=== PATIENT | male | born 1945 | race Caucasian/White ===

== ENCOUNTER 2023-06-10 13:08 | Day surgery (SDC) | payer MEDICARE, OTHER, SELFPAY ==
--- NOTE | 2023-06-10 13:25 | MR_ITS ---
The [address] [address] Patient Name: DEBORAH BARROW MRN: [id number] date: 1945 Sex: M Assigned Patient Location: MRI Current Patient Location: MRI Accession/Order Number: [id number] Exam Date: 06/10/2023 15:00 Report Date: 06/12/2023 14:57 At the request of: ONEL ISAACS Procedure: MR arthrogram shoulder EXAM: MR arthrogram shoulder COMPARISON: Fluoroscopic images from 06/10/2023. HISTORY: Right shoulder and arm pain. History of prior shoulder surgery for rotator cuff tear. TECHNIQUE: Multiplanar and multisequence imaging of the right shoulder was performed after intra-articular administration of dilute gadolinium into the glenohumeral joint. FINDINGS: The glenohumeral joint is well opacified with contrast. There is extravasation of the injected contrast into the subacromial space traversing a full-thickness rotator cuff tear. There is capsular hypertrophy and mild spurring involving the acromioclavicular joint. There has been prior acromioplasty. There is artifact related to hardware in the greater tuberosity with surgical tracks in the greater tuberosity. There is a relatively large full-thickness tear involving a majority of the supraspinatus extending to the junction with the infraspinatus. The tear measures approximately 1.5 cm in AP dimension and 2.5 cm transversely with tendon retraction measuring 2.5 cm. There is thinning and likely partial thickness tearing throughout the infraspinatus with thinning possibly in part related to postsurgical change. There is mild tendinopathy and low-grade partial-thickness articular sided tearing of the distal subscapularis. There is no atrophy of the rotator cuff muscles. There is mild medial subluxation of the biceps tendon from the bicipital groove. There is severe tendinopathy and moderate grade partial thickness tearing of the biceps tendon tracking proximally from the bicipital groove. There is linear increased signal and contrast signal in the superior labrum best seen on the coronal T1 images consistent with a tear of the superior labrum. There is low-grade articular cartilage loss and mild joint space narrowing with mild spurring involving the glenohumeral joint. MR/MR arthrogram shoulder IMPRESSION: 1. There is a large full-thickness tear of the supraspinatus extending to the junction with the infraspinatus. Tendon retraction measures approximately 2.5 cm with contrast extending from the joint space into the subacromial and subdeltoid space related to the full-thickness tear. 2. There is mild tendinopathy and low-grade partial-thickness articular sided tearing of the subscapularis. There is no atrophy of the rotator cuff muscles. 3. There is mild medial subluxation of the biceps tendon from the bicipital groove with severe tendinopathy and moderate grade partial thickness tearing of the biceps tendon tracking proximally from the bicipital groove. 4. Prior rotator cuff repair with surgical tracks and artifact related to hardware in the greater tuberosity. There has been prior acromioplasty. 5. 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 There is a tear of the superior labrum. Electronically authenticated by: ROSHAN GRIMM Date: 06/12/2023 14:57
--- NOTE | 2023-06-10 13:26 | FL_ITS ---
[address] [address] Patient Name: DEBORAH BARROW MRN: [id number] date: 1945 Sex: M Assigned Patient Location: MRI Current Patient Location: MRI Accession/Order Number: [id number] Exam Date: 06/10/2023 14:15 Report Date: 06/10/2023 20:01 At the request of: ONEL ISAACS Procedure: FL arthrogram shoulder RT EXAMINATION: FL arthrogram shoulder RT HISTORY: Right Shoulder Instability COMPARISON: No relevant comparison available. TECHNIQUE: An arthrogram was performed under fluoroscopic guidance using non-ionic contrast material in the usual sterile manner after obtaining informed consent. Standard level fluoroscopic mode of operation utilized. FINDINGS: JOINT: Right shoulder NEEDLE: 25 gauge, 3.5 spinal needle. MEDICATION: 6cc buffered 1% lidocaine for subcutaneous anesthesia 2cc Omnipaque-240 iodinated contrast to visualize the joint space 40 mg Depo-Medrol and one mL, 3 mL's of 0.5% bupivacaine, 3 cc of sterile saline injected into the joint space. TECHNIQUE: Anterior approach. A single stick was successful in gaining access to the joint space. CLINICAL: 4 out of 10 pain before the procedure. 2 out of 10 pain following the procedure COMPLICATIONS: None. FL/FL arthrogram shoulder RT IMPRESSION: Technically successful right shoulder arthrogram with mild improvement in the patient's pain following injection Electronically authenticated by: LEONELA PARIKH Date: 06/10/2023 20:01
[2023-06-10] MEDS: LIDOCAINE HCL 15 ML, SODIUM BICARBONATE 2 MEQ INJ (14:35)
== END 2023-06-10 14:00 | disposition home or self-care (01) ==
LOC: MRI 13:09
PROVIDERS: Radiology Diagnostic Radiology; PCP Family Medicine; Visit Provider Family Medicine
DX: M25.311 Other instability, right shoulder (principal)
CPT/HCPCS: 23350; 73040; 73222; 77002; A9575; Q9967

== ENCOUNTER 2024-05-18 17:35 | Outpatient (OUT) | payer MEDICARE, OTHER, SELFPAY ==
[2024-05-18 18:31] LABS: Internal Control Within Normal Limits; Respiratory Syncytial Virus Not Detected (NOT DETECTE)
[2024-05-18 18:32] LABS: Influenza Virus A Antigen Negative; Influenza Virus B Antigen Negative; Internal Control Within Normal Limits; SARS-CoV-2 Ag POSITIVE (NEGATIVE)
== END 2024-05-18 17:36 | disposition home or self-care (01) ==
LOC: LAB 17:37
PROVIDERS: PCP Family Medicine; Visit Provider Family Medicine
DX: J20.9 Acute bronchitis, unspecified (principal)
CPT/HCPCS: 87420; 87635; 87804; 87811

== ENCOUNTER 2024-06-04 14:41 | Outpatient (OUT) | payer MEDICARE, OTHER, SELFPAY ==
--- NOTE | 2024-06-04 14:45 | US_ITS ---
[address] [address] Patient Name: DEBORAH BARROW MRN: [id number] date: 1945 Sex: M Assigned Patient Location: US Current Patient Location: US Accession/Order Number: [id number] Exam Date: 06/04/2024 15:00 Report Date: 06/04/2024 16:51 At the request of: ONEL ISAACS Procedure: US venous doppler LE BI EXAM: US venous doppler LE BI HISTORY: Edema R60.9 COMPARISON: None. TECHNIQUE: Grayscale, color and Doppler FINDINGS: Region: Bilateral legs Thrombus: None Flow: Normal Augmentation: Normal Compressibility: Normal Other: Subcutaneous edema noted along the left lower leg US/US venous doppler LE BI IMPRESSION: No deep or superficial vein thrombus identified in the legs Electronically authenticated by: LEONELA PARIKH Date: 06/04/2024 16:51
== END 2024-06-04 14:42 | disposition home or self-care (01) ==
LOC: US 14:41
PROVIDERS: PCP Family Medicine; Visit Provider Family Medicine
DX: R60.0 Localized edema (principal)
CPT/HCPCS: 93970

== ENCOUNTER 2024-08-04 08:56 | Outpatient (OUT) | payer MEDICARE, OTHER, SELFPAY ==
--- NOTE | 2024-08-04 09:05 | CT_ITS ---
[address] [address] Patient Name: DEBORAH BARROW MRN: [id number] date: 1945 Sex: M Assigned Patient Location: CT Current Patient Location: Accession/Order Number: [id number] Exam Date: 08/04/2024 09:55 Report Date: 08/05/2024 06:51 At the request of: ONEL ISAACS Procedure: CT abdomen pelvis w con EXAMINATION: CT abdomen pelvis w con HISTORY: Abdominal Wall Hernia K43.9 COMPARISON: No relevant comparison available. TECHNIQUE: Axial, Coronal, and Sagittal images were obtained without and/or with IV contrast as indicated by examination type. Dose reduction techniques were achieved by using automated exposure control and/or adjustment of mA and/or kV according to patient size and/or use of iterative reconstruction technique. FINDINGS: LUNG BASES: No visible pulmonary or pleural disease. LIVER: No enlargement, atrophy, suspicious density, or significant focal lesion. BILIARY: Cholecystectomy. PANCREAS: No lesion, fluid collection, or abnormal duct dilatation. SPLEEN: No enlargement or focal lesion. ADRENALS: No mass or enlargement. KIDNEYS: Bilateral hypodensities favoring cysts. No appreciable mass, obstruction, or calcification. BOWEL/MESENTERY: Numerous diverticula scattered along the length of colon without acute inflammatory changes. No visible mass, obstruction, or bowel wall thickening. AORTA/VASCULAR: No aneurysm or dissection. RETROPERITONEUM: No mass or adenopathy. LYMPH NODES: No adenopathy. URINARY BLADDER: No visible focal wall thickening, lesion, or calculus. PELVIC ORGANS: No visible mass. Pelvic organs appropriate for patient age. ABDOMINAL WALL: Supra umbilical ventral hernia 3.4 cm in diameter with a 1.3 cm wide neck containing only fat. No strangulation. BONES: No bony lesion or fracture. OTHER: Negative. CT/CT abdomen pelvis w con IMPRESSION: 1. Small fat filled nonstrangulated supraumbilical ventral hernia. 2. Colonic diverticulosis. Electronically authenticated by: JACOBO AUGUSTIN Date: 08/05/2024 06:51
[2024-08-04 09:14] LABS: Estimated GFR (African America >60 (>=60); Estimated GFR (Non-African Ame 54 (>=60)
--- OUTSIDE RECORDS SUMMARY | 2024-08-04 09:26 | XMS_ITS | CCD ---
Author Organization [facility] Care Team Providers Care Trailer Rental Clerk Name Role Phone Onel Isaacs Primary Care Physician Carmella Liao Unavailable Unavailable Laura Gates Unavailable Unavailable Katie Villatoro Unavailable Unavailable Onel Isaacs MD Primary Care Provider AhmedRayraytham Unavailable Juan F Portillo MD Unavailable Onel Isaacs MD Primary Care Provider Ahmed, Haitham Unavailable Juan F Portillo MD Unavailable Onel Isaacs MD Primary Care Provider Ahmed, Rayraytham Unavailable Onel Isaacs MD Primary Care Provider Ahmed, Haitham Unavailable Juan F Portillo MD Unavailable Onel Isaacs MD Unavailable Onel Isaacs MD Primary Care Provider Ahmed, Haitham Unavailable Juan F Portillo MD Unavailable Onel Isaacs MD Unavailable Onel Isaacs Attending Unavailable Hoy, Onel Admitting Unavailable Cary Fuchs Attending Unavailable Cherise Saldivar Attending Unavailable Hoy, Onel Attending Unavailable Hoy, Onel Admitting Unavailable Hoy, Onel Referring Unavailable Hoy, Onel Attending Unavailable Hoy, Onel Admitting Unavailable Hoy, Onel Referring Unavailable Onel Isaacs MD Unavailable Juan F Portillo MD Unavailable Juan F Portillo MD Unavailable Onel Isaacs MD Unavailable Onel Isaacs MD Primary Care Provider REJI WEEMS Attending Unavailable ONEL ISAACS Primary Care Unavailable ABEBA KEEN Attending Unavailable JUAN F PORTILLO Referring Unavailable ONEL ISAACS Primary Care Unavailable ABEBA KEEN Referring Unavailable ONEL ISAACS Primary Care Unavailable ABEBA KEEN Attending Unavailable JUAN F PORTILLO Referring Unavailable ONEL ISAACS Primary Care Unavailable REJI WEEMS Referring Unavailable ONEL ISAACS Primary Care Unavailable Allergies Allergy Classification Reported Allergen(s) Allergy Type Date of Onset Reaction(s) Facility (5 sources) Acetaminophen / HYDROcodone; Translations: [acetaminophen-hy drocodone] Drug Allergy Unknown (qualifier value) [facility] (5 sources) Codeine; Translations: [codeine] Drug Allergy itching [facility] (20 sources) Lisinopril; Translations: [lisinopril] Drug Allergy 7 Cough [facility] (4 sources) Amoxicillin; Translations: [amoxicillin] Drug Allergy Diarrhea (finding) [facility] (1 source) Acetaminophen / oxyCODONE; Translations: [Percocet 5/325] Drug Allergy [facility] Repository Medications Current Medications Medication Drug Class(es) Dates Sig (Normalized) Sig (Original) acetaminophen 325 mg oral tablet (17 sources) Start: 09-09-2018 acetaminophen (TYLENOL) 325 mg tablet Take 650 mg by mouth as needed for pain. 0 09/09/2018 Active Start: 09-09-2018 take 650 mg by mouth four times daily as needed for pain Tylenol 650 mg, Oral, QID, PRN as needed for pain, Refills(s) 0 Start Date: 09/09/18 Status: Ordered Comment on above: Take 650 mg by mouth . Take 650 mg by mouth as needed for pain. Airborne Everyday (4 sources) Start: 8 take 1 tablet by mouth once daily Airborne Everyday 1 tab, Oral, Daily, Refill(s) 0, Prophylaxis Start Date: 09/09/18 Status: Ordered amoxicillin 500 mg oral tablet (4 sources) Penicillin-class Antibacterial Start: 2 take 500 mg by mouth once amoxicillin 500 mg, Oral, Once, Refills(s) 0, Infection or prophylaxis for antibiotics Start Date: 02/19/22 Status: Ordered ascorbic acid / biotin / ferrous bisglycinate / folic acid / formic acid / iron-dextran complex / niacin / pantothenate / pyridoxine / riboflavin / thiamine / vitamin B12 (20 sources) Nicotinic Acid, Vitamin B12, Vitamin C Start: 3 take 1 tablet by mouth every week iron bisgly,ps-FA-B-C#12 -succ 65 mg-65 mg -1,000 mcg (24) tab Take 65 mg by mouth once weekly 0 08/13/2023 Active Start: 08-11-2020 End: 08-13-2023 take 1 tablet by mouth once daily iron bisgly,ps-FA-B-C#12-succ 65 mg-65 m g -1,000 mcg (24) tab Take 65 mg by mouth once daily. 0 08/11/2020 08/13/2023 Discontinued Start: 08-11-2020 take 1 tablet by myesha th once daily iron bisgly,ps-FA-B-C#12-succ 65 mg-65 m g -1,000 mcg (24) tab Take 65 mg by mouth once daily. 0 08/11/2020 Active Comment on above: Take 65 mg by mouth once daily. Take 65 mg by mouth once weekly Aspir 81 (4 sources) Start: 8 take 81 mg by mouth once daily Aspir 81 81 mg, Oral, Daily, Refills(s) 0, Prophylaxis Start Date: 08/28/18 Status: Ordered azithromycin 500 mg oral tablet (20 sources) Macrolide Antimicrobial Start: 2 azithromycin (ZITHROMAX) 500 mg tablet Take 1 tablet by mouth once daily. Take one tablet 60 minutes prior to procedure. 1 tablet 0 03/23/2022 Active Start: 02-21-2022 End: 03-20-2022 azithromycin (ZITHROMAX) 500 mg tablet Take 1 tablet by mouth once daily. Take one tablet 60 minutes prior to procedure. 1 tablet 0 02/21/2022 03/20/2022 Discontinued Comment on above: Take 1 tablet by myesha once daily. Take one tablet 60 minutes prior to procedure. calcium citrate/vitamin D3 (CALCIUM CITRATE + ORAL) (20 sources) calcium citrate/ vitamin D3 (CALCIUM CITRATE + ORAL) Take by mouth twice daily. Pt takes 2 capsule by mouth twice per day. 0 Active calcium citrate/ vitamin D3 (CALCIUM CITRATE + ORAL) Take by mouth twice daily. Pt takes 2 chewables by mouth twice per day. 0 Active calcium citrate/ vitamin D3 (CALCIUM CITRATE + ORAL) Take by mouth twice daily. Chewable taken twice per day by mouth. 0 Active Comment on above: Take by mouth twice daily. Chewable taken twice per day by mouth. Take by mouth twice daily. Pt takes 2 chewables by mouth twice per day. Take by mouth twice daily. Pt takes 2 capsule by mouth twice per day. cholecalciferol 0.05 mg oral capsule (20 sources) Vitamin D take 1 capsule by mouth twice daily Cholecalciferol, Vitamin D3, 50 mcg (2,000 unit) cap Take 1,000 Units by mouth twice daily. 0 Active take 1 capsule by mouth once farhan ly Cholecalciferol, Vitamin D3, (D3-2000) 2,000 unit cap Take 1 capsule by mouth once daily. 0 Active Comment on above: Take 1 capsule by [facility] once daily. Take 1,000 Units by mouth twice daily. Co-Q10 (4 sources) Start: 2017 take 100 mg by mouth once daily Co-Q10 100 mg, Oral, Daily, Refills(s) 0, Prophylaxis Start Date: 09/09/18 Status: Ordered cyanocobalamin, vitamin B-12, (VITAMIN B-12 SUBLINGUAL) (20 sources) take 1 dose under the tongue once daily cyanocobalamin, vitamin B-12, (VITAMIN B-12 SUBLINGUAL) Dissolve 1 Dose under the tongue once daily. 0 Active Comment on above: Dissolve 1 Dose unde r the tongue once daily. hydroCHLOROthiazide 25 mg oral tablet (20 sources) Thiazide Diuretic Start: 2020 End: 2022 take 1 tablet by mouth once daily hydroCHLOROthiazide 25 mg tablet Indications: Essential hypertension Take 1 tablet by mouth once daily. 90 tablet 3 11/12/2023 Active Comment on above: Take 1 tablet by myesha th once daily. irbesartan 300 mg oral tablet (20 sources) Angiotensin 2 Receptor Xiao Start: 2021 End: 2023 take 1 tablet by mouth once daily at bedtime irbesartan (AVAPRO) 300 mg tablet Indications: Essential hypertension Take 1 tablet by mouth daily at bedtime. 90 tablet 3 02/11/2024 Active Start: 10-18-2021 End: 10-11-2022 take 1 tablet by mouth once daily at bedtime irbesartan (AVAPRO) 300 mg tablet Indications: Essential hypertension Take 1 tablet by mouth daily at bedtime. 90 tablet 3 10/18/2021 10/11/2022 Discontinued Comment on above: Take 1 tablet by myesha th daily at bedtime. iron gluconate (1 source) Start: 3 iron gluconate Oral, Daily, Refills(s) 0 Start Date: 03/01/23 Status: Ordered losartan 12.5 mg oral tablet (4 sources) Angiotensin 2 Receptor Xiao Start: 8 take 12.5 mg by mouth once daily losartan 12.5 mg, Oral, Daily, Refills(s) 0, High blood pressure Start Date: 03/17/18 Status: Ordered 24 hr metoprolol succinate 25 mg extended release oral tablet (20 sources) beta-Adrenergic Xiao Start: 1 End: 2 take 1 tablet by mouth once daily metoprolol succinate ER (TOPROL XL) 50 mg 24 hr tablet Indications: Paroxysmal atrial fibrillation (HCC) Take 1 tablet by mouth once daily. 90 tablet 3 09/19/2021 08/15/2022 Discontinued Start: 08-28-2018 End: 08-19-2023 take 1 tablet by mouth once daily in the evening metoprolol succinate ER (TOPROL XL) 25 mg 24 hr tablet take 1 tablet by mouth every evening 90 tablet 3 08/19/2023 Active Comment on above: Take 1 tablet by myesha th once daily. Take 1 tablet by myesha th every evening. take 1 tablet by myesha th every evening multivitamin tablet (20 sources) Start: 1 take 1 tablet by mouth once daily multivitamin tablet Take 1 tablet by mouth once daily. 0 04/12/2021 Active Comment on above: Take 1 tablet by myesha th once daily. lSade-theanine-herb no.310 (AIRBORNE EVERYDAY STRESS AWAY) 1,000 mg-200 mg-360 mg pwpk (13 sources) Start: 8 dg-uj-R-theanine-herb no.310 (AIRBORNE EVERYDAY STRESS AWAY) 1,000 mg-200 mg-360 mg pwpk Take by mouth. 0 09/09/2018 Active Comment on above: Take by mouth. olopatadine 7 mg/ml ophthalmic solution (20 sources) Histamine-1 Receptor Inhibitor Start: 2 take 1 drop(s) into the eye(s) twice daily olopatadine 0.7% ophthalmic solution 1 drop(s), Eye-Both, BID, Refill(s) 0, Itching Start Date: 02/07/22 Status: Ordered Start: 04-12-2021 olopatadine (P ATADAY TWICE DAILY RELIEF) 0.1 % ophthalmic solution Use 1 Drop in both eyes twice daily. 0 04/12/2021 Active Comment on above: Use 1 Drop in both e yes twice daily. OTC PRODUCT (20 sources) OTC PRODUCT once daily. OTC Force Factor take 3 tablet once per day 0 Active OTC PRODUCT 0.9% NaCl Sinus Rinse 0 Active Comment on above: 0.9% NaCl Sinus Rins e once daily. OTC Forc e Factor take 3 tablet once per day perflutren lipid microspheres 1.3 mL in NaCl (PF) 0.9% 10 mL injection (DEFINITY) (20 sources) Start: 03-13-2023 End: 06-11-2024 perflutren lipid microspheres 1.3 mL in NaCl (PF) 0.9% 10 mL injection (DEFINITY) Start: 08-15-2022 End: 11-14-2023 perflutren lipid microsphere s 1.3 mL in NaCl (PF) 0.9% 10 mL injection (DEFINITY) Start: 04-12-2021 End: 07-12-2022 perflutren lipid microsphere s 1.3 mL in NaCl (PF) 0.9% 10 mL injection (DEFINITY) psyllium husk, bulk, 100 % powd (20 sources) psyllium husk, b ulk, 100 % powd 1 teaspoonful twice daily. 0 Active Comment on above: 1 teaspoonful twice daily. saw palmetto (1 source) Start: 09-09-2018 saw palmetto Oral, Daily, Refill(s) 0, Prophylaxis Start Date: 09/09/18 Status: Ordered Saw palmetto extract (3 sources) Start: 09-09-2018 saw palmetto Oral, Daily, Refill(s) 0, Prophylaxis Start Date: 09/09/18 Status: Ordered 125 ml sodium chloride 9 mg/ml prefilled syringe (20 sources) Start: 03-01-2023 sodium chloride 0.9% Irr Kathryn 500 mL Refill(s) 0 Start Date: 03/01/23 Status: Ordered Start: 08-15-2022 End: 06-11-2024 sodium chloride 0.9 % (flush ) 10 mL (BD POSIFLUSH) Start: 04-12-2021 End: 07-12-2022 sodium chloride 0.9 % (flush ) 10 mL (BD POSIFLUSH) Start: 08-28-2018 Saline Mist 0. 65% nasal spray 1 spray(s), Nasal, Daily, Refill(s) 0 Start Date: 08/28/18 Status: Ordered Start: 08-28-2018 sodium chlorid e (SALINE MIST NASAL) Use in the nose. 0 08/28/2018 Active Comment on above: Use in the nose. tiZANidine 4 mg oral tablet (4 sources) Central alpha-2 Adrenergic Agonist Start: 9 take 1 tablet by mouth every eight hours as needed for pain tiZANidine 4 mg Tab 4 mg = 1 tab(s), Oral, q8hr, PRN Spasm, Refills(s) 0, Muscle pain Start Date: 05/19/19 Status: Ordered Tolnaftate (20 sources) tolnaftate (FORM MATT 3 TOPICAL) Apply 1 application to affected area once daily. 0 Active Comment on above: Apply 1 application to affected area once daily. ubidecarenone/vitami n E mixed (COQ10 SG 100 ORAL) (20 sources) take 1 capsule by mouth once daily ubidecarenone/vitami n E mixed (COQ10 SG 100 ORAL) Take 1 capsule by mouth once daily. 0 Active Comment on above: Take 1 capsule by [facility] once daily. Vitamin D3 (4 sources) Start: 9 take 1000 ug by mouth twice daily Vitamin D3 1,000 mcg, Oral, BID, Refills(s) 0, Prophylaxis Start Date: 05/19/19 Status: Ordered Completed/Discontinued Medications Medication Drug Class(es) Dates Sig (Normalized) Sig (Original) aspirin 81 mg chewable tablet (20 sources) Platelet Aggregation Inhibitor, Nonsteroidal Anti-inflammatory Drug Start: 09-11-2018 End: 08-13-2023 take 1 tablet by mouth once daily aspirin 81 mg chewable tablet Take 1 tablet by mouth once daily. 90 tablet 3 09/11/2018 08/13/2023 Discontinued (Duplicate Entry) take 1 tablet by mouth once ajit y aspirin, enteric coated (ASPIRIN, ENTERIC COATED) 81 mg EC tablet Take 81 mg by mouth once daily. 0 Active Comment on above: Take 1 tablet by myesha th once daily. Take 81 mg by mouth once daily. Calcium Citrate (4 sources) Start: take 2 tablets by mouth twice daily calcium citrate 250 mg, Oral, BID, takes 2 tabs, Refills(s) 0, Prophylaxis Start Date: 02/19/22 Status: Ordered cyclobenzaprine hydrochloride 10 mg oral tablet (3 sources) Muscle Relaxant Start: End: take 1 tablet by mouth every twenty-four hours as needed cyclobenzaprine (FLEXERIL) 10 mg tablet Take 10 mg by mouth at bedtime as needed. 0 04/24/2023 08/13/2023 Discontinued (Course of therapy completed) Comment on above: Take 10 mg by mouth at bedtime as needed. diclofenac sodium 75 mg extended release oral tablet (3 sources) Nonsteroidal Anti-inflammatory Drug End: take 75 mg by mouth twice daily DICLOFENAC SODIUM ORAL Take 75 mg by mouth twice daily. 0 02/08/2023 Discontinued (Discontinued by another Health Care Provider) Comment on above: Take 75 mg by mouth twice daily. ELDERBERRY FRUIT (13 sources) End: elderberry fruit (ELDERBERRY ORAL) Take 1 teaspoonful by mouth once daily. 0 01/11/2023 Discontinued (Course of therapy completed) elderberry fruit (ELDERBERRY ORAL) Take 1 teaspoonful by mouth once daily. 0 Active Comment on above: Take 1 teaspoonful b y mouth once daily. iv contrast (will be provided with radiology test) (16 sources) Start: 05-16-20 End: 02-09-20 inject 1 dose intravenously once iv contrast (will be provided with radiology test) CT Cardiac - No IV access, insert saline lock prior to the sedation, infusion, injection for imaging exam. Discontinue saline lock post exam. If Pt. has a central line or IVAD, may access for administration according to line specific nursing protocol. Once exam is complete flush line and de-access according to line specific nursing protocol in the CT contrast administration guidelines link. 1 Each 0 05/16/2020 02/08/2023 Discontinued (Other) Start: 05-16-2020 inject 1 dose intravenously on ce iv contrast (will be provided with radiology test) CT Cardiac - No IV access, insert saline lock prior to the sedation, infusion, injection for imaging exam. Discontinue saline lock post exam. If Pt. has a central line or IVAD, may access for administration according to line specific nursing protocol. Once exam is complete flush line and de-access according to line specific nursing protocol in the CT contrast administration guidelines link. 1 Each 0 05/16/2020 Active Comment on above: CT Cardiac - No IV a ccess, insert saline lock prior to the sedation, infusion, injection for imaging exam. Discontinue saline lock post exam. If Pt. has a central line or IVAD, may access for administration according to line specific nursing protocol. Once exam is complete flush line and de-access according to line specific nursing protocol in the CT contrast administration guidelines link. 10 ml lidocaine hydrochloride 10 mg/ml injection (1 source) Antiarrhythmic, Amide Local Anesthetic Start: 07-08-20 End: 07-08-20 23 lidocaine (PF) 10 mg/mL (1 %) 8 mL injection (XYLOCAINE) yg-db-jpvM-asbNa-Glu- Juli-hc124 (AIRBORNE, ASCORBATE SODIUM,) 334-1.7 mg chew (4 sources) take 1 tablet by mouth once daily kp-xk-ofjK-asbNa-Glu -Juli-hc124 (AIRBORNE, ASCORBATE SODIUM,) 334-1.7 mg chew Take 1 tablet by mouth once daily. 0 Active Comment on above: Take 1 tablet by myesha th once daily. ye-sf-dsfI-asbNa-Glu- Juli-hc124 334-1.7 mg chew (17 sources) End: 08-13-20 take 1 tablet by mouth once daily ng-yg-nwoN-asbNa-Glu -Juli-hc124 334-1.7 mg chew Take 1 tablet by mouth once daily. 0 08/13/2023 Discontinued (Duplicate Entry) take 1 tablet by myesha th once daily oe-ws-dfqQ-phnJy-Wez-Xhw-hc124 334-1.7 m g chew Take 1 tablet by mouth once daily. 0 Active Comment on above: Take 1 tablet by myesha th once daily. omega 4-xyr-jsi-fish oil (FISH OIL) 900-1,400 mg cpDR (20 sources) Start: 04-12-2021 End: 02-11-2024 omega 3-num-vvg-fish oil (FISH OIL) 900-1,400 mg cpDR Take 1,400 mg by mouth once daily. 0 04/12/2021 02/11/2024 Discontinued (Course of therapy completed) Start: 04-12-2021 omega 3-dha-ep a-fish oil (FISH OIL) 900-1,400 mg cpDR Take 1,400 mg by mouth once daily. 0 04/12/2021 Active Comment on above: Take 1,400 mg by myesha th once daily. SAW PALMETTO ORAL (14 sources) End: 02-06-2023 take 1 tablet by mouth once daily SAW PALMETTO ORAL Take 1 tablet by mouth once daily. 0 02/06/2023 Discontinued (Discontinued by Patient) take 1 tablet by mouth once ajit y SAW PALMETTO ORAL Take 1 tablet by mouth once daily. 0 Active take 1 tablet by mouth twice farhan ly SAW PALMETTO ORAL Take 1 tablet by mouth twice daily. 0 Active Comment on above: Take 1 tablet by myesha th twice daily. Take 1 tablet by myesha th once daily. 1 ml triamcinolone acetonide 40 mg/ml injection (1 source) Corticosteroid Start: 07-08-2023 End: 07-08-2023 triamcinolone acetonide 80 mg injection (KeNALog 40) Problems Active Problems Problem Classification Problem Date Documented Da te Episodic/Chronic Aortic; peripheral; and visceral artery aneurysms (20 sources) Thoracic aortic aneurysm without rupture; Translations: [Thoracic aortic aneurysm, without rupture] Onset: 8 Resolved: 8 08-19-2018 Chronic Cardiac dysrhythmias (20 sources) Ventricular premature beats; Translations: [Paroxysmal atrial fibrillation] Onset: 8 08-25-2015 Chronic Comment on above: occasionally Conditions associated with dizziness or vertigo (1 source) Lightheadedness; Translations: [Dizziness and giddiness] Episodic Disorders of lipid metabolism (20 sources) Hyperlipidemia; Translations: [Hyperlipidemia, unspecified] Onset: 8 08-19-2018 Chronic Diverticulosis and diverticulitis (3 sources) Diverticular disease 03-09-2022 Chronic Essential hypertension (20 sources) Hypertensive disorder; Translations: [Essential hypertension] Onset: 6 07-04-2010 Chronic Heart valve disorders (20 sources) Aortic incompetence, non-rheumatic ; Translations: [Nonrheumatic aortic (valve) insufficiency] Onset: 8 05-26-2018 Chronic Hemorrhoids (3 sources) Hemorrhoids 03-09-2022 Episodic Malaise and fatigue (2 sources) Physical deconditioning; Translations: [Other malaise] Episodic Nonspecific chest pain (6 sources) Precordial pain; Translations: [Precordial pain] Episodic Other and unspecified benign neoplasm (4 sources) Polyp of colon; Translations: [Polyp of colon] Onset: Episodic Other and unspecified benign neoplasm (4 sources) History of polyp of colon 02-07-2022 Episodic Other circulatory disease (2 sources) History of replacement of ascending aorta; Translations: [Presence of other vascular implants and grafts] Chronic Other connective tissue disease (4 sources) Rotator cuff syndrome 02-05-2014 Episodic Other gastrointestinal disorders (20 sources) History of gastrointestinal bleed; Translations: [Personal history of other diseases of the digestive system] 08-11-2018 Episodic Other gastrointestinal disorders (3 sources) Loose stool 03-09-2022 Episodic Other lower respiratory disease (1 source) Dyspnea on exertion; Translations: [Other forms of dyspnea] Episodic Other screening for suspected conditions (not mental disorders or infectious disease) (2 sources) Serum creatinine raised; Translations: [Other specified abnormal findings of blood chemistry] Episodic Other skin disorders (4 sources) Mass of parotid gland 11-01-2014 Episodic Comment on above: RIGHT Residual codes; unclassified (4 sources) FH: Hypertension 07-15-2014 Episodic Residual codes; unclassified (1 source) Procedure needed; Translations: [Other specified health status] Episodic Residual codes; unclassified (1 source) Difficulty managing exercise regime; Translations: [Other specified health status] Episodic Spondylosis; intervertebral disc disorders; other back problems (4 sources) Low back pain 02-05-2014 Episodic Unclassified (4 sources) Bleeding ulcer (morphologic abnormality) 11-01-2014 Comment on above: HX IN JUNE 2014 Unclassified (20 sources) Transition of care; Translations: [Transition of care performed with sharing of clinical summary] Onset: 8 08-20-2018 Past or Other Problems Problem Classification Problem Date Documented Da te Episodic/Chronic Administrative/social admission (20 sources) Discharge status; Translations: [Encounter for administrative examinations, unspecified] Onset: 08-11-2018 08-20-2018 Episodic Cardiac dysrhythmias (20 sources) Palpitations; Translations: [Palpitations] Onset: 10-29-2016 10-29-2016 Episodic Coagulation and hemorrhagic disorders (1 source) Secondary thrombocytopenia; Translations: [Other secondary thrombocytopenia] Onset: 08-12-2018 Resolved: 08-19-2018 08-19-2018 Episodic Complications of surgical procedures or medical care (2 sources) Hypotension following procedure; Translations: [Postprocedural hypotension] Onset: 08-12-2018 Resolved: 08-20-2018 08-13-2018 Episodic Congestive heart failure; nonhypertensive (1 source) Heart failure; Translations: [Heart failure, unspecified] Onset: 08-12-2018 Resolved: 08-14-2018 08-14-2018 Chronic Diabetes mellitus without complication (1 source) Metabolic stress hyperglycemia; Translations: [Hyperglycemia, unspecified] Onset: 08-12-2018 Resolved: 08-15-2018 08-15-2018 Episodic Fluid and electrolyte disorders (1 source) Hypervolemia; Translations: [Fluid overload, unspecified] Onset: 08-15-2018 Resolved: 08-20-2018 08-20-2018 Episodic Other nervous system disorders (1 source) Acute postoperative pain; Translations: [Other acute postprocedural pain] Onset: 08-12-2018 Resolved: 08-16-2018 08-16-2018 Episodic Pleurisy; pneumothorax; pulmonary collapse (1 source) Atelectasis; Translations: [Atelectasis] Onset: 08-15-2018 Resolved: 08-19-2018 08-19-2018 Episodic Residual codes; unclassified (20 sources) Other amnesia; Translations: [Memory loss] Onset: 01-09-2017 01-09-2017 Episodic Residual codes; unclassified (20 sources) Age-associated memory impairment; Translations: [Other amnesia] Onset: 01-09-2017 01-09-2017 Episodic Residual codes; unclassified (4 sources) Memory finding; Translations: [Other amnesia] Onset: 01-09-2017 01-09-2017 Episodic Residual codes; unclassified (1 source) Other specified postprocedural states; Translations: [S/P right rotator cuff repair] Onset: 07-08-2023 Episodic Respiratory failure; insufficiency; arrest (adult) (1 source) Ventilator finding; Translations: [Dependence on respirator [ventilator] status] Onset: 08-12-2018 Resolved: 08-13-2018 08-13-2018 Chronic Sprains and strains (9 sources) Strain of muscle(s) and tendon(s) of the rotator cuff of right shoulder, initial encounter; Translations: [Rotator cuff (capsule) sprain] Onset: 07-08-2023 07-08-2023 Episodic Results Test Name Value Interpretation Reference Range Facility [facility]ARR[facility] ([id number]) 1945 M Date Time Provider Department 05/22/24 ABEBA KEEN CARD P During your visit today, we recorded the following information about you: Indira Gonzalez 05/22/2024 3:55 PM Signed Pt calling to speak with Abeba, he asks that she please return his call when she gets in on Saturday. Cb#:[phone] Abeba Keen APRN.INSTRUMENT TECHNICIAN HELPER 05/26/2024 5:48 PM Signed Pt phoned regarding his . Spoke with Pt and documented in her chart. Abeba Keen APRN.INSTRUMENT TECHNICIAN HELPER Allergies As of Date: 05/22/2024 Noted Allergy Reaction LISINOPRIL 04/26/2017 3 - Cough Date Reviewed: 07/08/2023 Reviewed by: Tonya Crouch OCCA - Fully Assessed Reason for Visit: Patient Question [1477] Prescriptions as of 05/26/2024 - irbesartan (AVAPRO) 300 mg tablet Take 1 tablet by mouth daily at bedtime. - hydroCHLOROthiazide 25 mg tablet Take 1 tablet by mouth once daily. - metoprolol succinate ER (TOPROL XL) 25 mg 24 hr tablet take 1 tablet by mouth every evening - iron bisgly,ps-FA-B-C#12-suc c 65 mg-65 mg -1,000 mcg (24) tab Take 65 mg by mouth once weekly - aspirin, enteric coated (ASPIRIN, ENTERIC COATED) 81 mg EC tablet Take 81 mg by mouth once daily. - OTC PRODUCT once daily. OTC Force Factor take 3 tablet once per day - al-pv-B-theanine-herb no.310 (AIRBORNE EVERYDAY STRESS AWAY) 1,000 mg-200 mg-360 mg pwpk Take by mouth. - acetaminophen (TYLENOL) 325 mg tablet Take 650 mg by mouth as needed for pain. - sodium chloride (SALINE MIST NASAL) Use in the nose. - azithromycin (ZITHROMAX) 500 mg tablet Take 1 tablet by mouth once daily. Take one tablet 60 minutes prior to procedure. - multivitamin tablet Take 1 tablet by mouth once daily. - olopatadine (PATADAY TWICE DAILY RELIEF) 0.1 % ophthalmic solution Use 1 Drop in both eyes twice daily. - calcium citrate/vitamin D3 (CALCIUM CITRATE + ORAL) Take by mouth twice daily. Pt takes 2 capsule by mouth twice per day. - docosahexaenoic acid/epa (FISH OIL ORAL) (Discontinued) Take 1,400 mg by mouth twice daily. - tolnaftate (FORMULA 3 TOPICAL) Apply 1 application to affected area once daily. - cyanocobalamin, vitamin B-12, (VITAMIN B-12 SUBLINGUAL) Dissolve 1 Dose under the tongue once daily. - OTC PRODUCT 0.9% NaCl Sinus Rinse - Cholecalciferol, Vitamin D3, 50 mcg (2,000 unit) cap Take 1,000 Units by mouth twice daily. - ubidecarenone/vitamin E mixed (COQ10 SG 100 ORAL) Take 1 capsule by mouth once daily. - psyllium husk, bulk, 100 % powd 1 teaspoonful twice daily. 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 [R41.3] 01/09/2017 Nonrheumatic aortic valve insufficiency [I35.1] 05/26/2018 Thoracic aortic aneurysm without rupture (HCC) *05/26/2018 Discharge planning issues [Z75.8] 08/11/2018 Preop testing [Z01.818] 08/11/2018 08/15/2018 Ascending aortic aneurysm (HCC) [I71.21] 08/15/2018 Aortic insufficiency [I35.1] Hypertension [I10] HLD (hyperlipidemia) [E78.5] History of GI bleed [Z87.19] Dilated aortic root (HCC) [I77.810] 08/15/2018 Acute post-operative pain [G89.18] 08/12/2018 08/16/2018 Cardiac insufficiency (HCC) [I50.9] 08/12/2018 08/14/2018 Postoperative hypotension [I95.81] 08/12/2018 08/13/2018 Stress hyperglycemia [R73.9] 08/12/2018 08/15/2018 On mechanically assisted ventilation (HCC) [Z99*08/12/2018 08/13/2018 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 [J95.811] 08/13/2018 08/20/2018 Transition of care performed with sharing of cl*08/15/2018 Volume overload [E87.70] 08/15/2018 08/20/2018 Atelectasis [J98.11] 08/15/2018 08/19/2018 Paroxysmal atrial fibrillation (HCC) [I48.0] 08/15/2018 S/P right rotator cuff repair [Z98.890] 07/08/2023 Traumatic complete tear of right rotator cuff [*07/08/2023 Encounter Status:Closed by ABEBA KEEN on 05/26/24 [facility] 02[facility]11-2024 CNOV Office Visit (CARD P ) WALLY BARROW ([id number]) 1945 M Date Time Provider Department 02/11/24 9:00 AM ABEBA KEEN P During your visit today, we recorded the following information about you: Pulse Blood pressure Weight 60/minute 128/80 89.5 kg Abeba Keen APRN.INSTRUMENT TECHNICIAN HELPER 02/25/2024 12:19 PM Add[facility] [place] [facility] Bynum Department of Cardiovascular Medicine SECTION OF PREVENTIVE CARDIOLOGY 02/11/2024 Wally Barrow CURRENT MEDS: Current Outpatient Medications Medication Sig irbesartan (AVAPRO) 300 mg tablet Take 1 tablet by mouth daily at bedtime. hydroCHLOROthiazide 25 mg tablet Take 1 tablet by mouth once daily. metoprolol succinate ER (TOPROL XL) 25 mg 24 hr tablet take 1 tablet by mouth every evening iron geo,ps-FA-B-C#12-suc c 65 mg-65 mg -1,000 mcg (24) tab Take 65 mg by mouth once weekly aspirin, enteric coated (ASPIRIN, ENTERIC COATED) 81 mg EC tablet Take 81 mg by mouth once daily. OTC PRODUCT once daily. OTC Force Factor take 3 tablet once per day kf-cd-Z-theanine-herb no.310 (AIRBORNE EVERYDAY STRESS AWAY) 1,000 mg-200 mg-360 mg pwpk Take by mouth. acetaminophen (TYLENOL) 325 mg tablet Take 650 mg by mouth as needed for pain. sodium chloride (SALINE MIST NASAL) Use in the nose. azithromycin (ZITHROMAX) 500 mg tablet Take 1 tablet by mouth once daily. Take one tablet 60 minutes prior to procedure. multivitamin tablet Take 1 tablet by mouth once daily. (Patient taking differently: Take by mouth twice daily. Pt takes 1 capsule by mouth twice per day) olopatadine (PATADAY TWICE DAILY RELIEF) 0.1 % ophthalmic solution Use 1 Drop in both eyes twice daily. calcium citrate/vitamin D3 (CALCIUM CITRATE + ORAL) Take by mouth twice daily. Pt takes 2 capsule by mouth twice per day. tolnaftate (FORMULA 3 TOPICAL) Apply 1 application to affected area once daily. cyanocobalamin, vitamin B-12, (VITAMIN B-12 SUBLINGUAL) Dissolve 1 Dose under the tongue once daily. OTC PRODUCT 0.9% NaCl Sinus Rinse Cholecalciferol, Vitamin D3, 50 mcg (2,000 unit) cap Take 1,000 Units by mouth twice daily. ubidecarenone/vitamin E mixed (COQ10 SG 100 ORAL) Take 1 capsule by mouth once daily. psyllium husk, bulk, 100 % powd 1 teaspoonful twice daily. Current Facility-Administered Medications Medication Dose Route Frequency perflutren lipid microspheres 1.3 mL in NaCl (PF) 0.9% 10 mL injection (DEFINITY) INTRAVENOUS DIRECTED PRN sodium chloride 0.9 % (flush) 10 mL (BD POSIFLUSH) 10 mL INTRAVENOUS DIRECTED PRN ALLERGIES: ALLERGIES Allergen Reactions Lisinopril Cough CHIEF COMPLAINT: Wally Barrow is a 78 year old White male seen today. 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 Briggs, and postoperative atrial fibrillation. Patient presents for ongoing management of cardiovascular risk factors. Since July, Pt is noticing continued stable lightheadedness. He is also not feeling motivated to get started with his daily activities. Chest pain: Yes : Pain Scale: 1-10 scale 7/10, Duration: seconds, Frequency: at random, improved since last visit and Character: sharp Noticeable with certain movements, ex. reaching to tie his shoes. Claudication: No SOB: yes, a little with climbing stairs. Pt attributes to weight gain. Orthopnea: No PND: No LE: No Lightheadedness/dizzine ss: No Palpitations:No Bleeding/bruising: No CARDIAC RISK FACTORS: History question Answer Diagnosis Date Comment Hypertension : Hypertension 11/25/1989 Exercise: Three to five times per week Family History of CAD: Negative Averaging 4000 steps per day, likely undercounting due to pushing wheelchair. Occasional walks, weather permitting. Avg. Sleep Hours Per Night?: 8 STATIN INTOLERANCE: Adverse Effect History of Statin Intolerance:: No Current Statin Freq: None Intolerance to Ezetimibe: No Intolerance to Niacin: No Intolerance to Fibrates: No Intolerance to Bile Acid Sequestrants: No USE OF PCSK9 INHIBITORS: CARDIOVASCULAR DISEASE HISTORY: CAD EVENTS; Cath: mild <30%: Yes 06/02/18 PVD EVENTS: Acending Aorta Repair: Yes 08/12/18 CVD EVENTS: FAMILY AND SOCIAL HISTORY Lifestyle Tobacco Use: 1.5 packs/day, for 25 years. Quit 08/11/1990. Types: Cigarettes Alcohol Use: Approximately 0.6 oz/week [which includes 1 Glasses of Wine (5oz) per week] (social) PHYSICAL EXAMINATION Vital Signs and General Appearance BP 128/80 Pulse 60 Wt 89.5 kg (197 lb 4.8 oz) BMI 28.31 kg/m? BMI 28.31 kg/(m2) PHYSICAL EXAMINATION: General appearance: well ap (more content not included)... Normal [facility] ALT SerPl-cCncon 02-05-2024 ALT [Catalytic activity/Vol] 22 U/L Normal 10-54 [facility] Comment on above: Order Comment: Speci men Type: BLOOD SPECIMEN Ordering Facility: [facility] Address: [address] [place] [address] Performed By: #### 1 742-6, 21244-6 #### [facility] CLIA [id number] [address] [place] [address] [place] #### 59882-6 #### [facility] CLIA [id number] [address] [place], [place] [id number] [place] [facility] CLIA [id number] [address] [place] [address] [place] Basic metabolic 2000 panelon 02-05-2024 Anion gap [Moles/Vol] 12 mmol/L Normal 9-[address] [facility] Comment on above: Order Comment: Speci men Type: BLOOD SPECIMEN Ordering Facility: [facility] Address: [address] [place] [address] Performed By: #### 1 742-6, 92787-6 #### [facility] CLIA [id number] [address] [place] [address] [place] #### 59105-3 #### [facility] CLIA [id number] [address] [place] [address] [place] [facility] CLIA [id number] [address] [place] [address] [place] Calcium [Mass/Vol] 10.2 mg/dL Normal 8.5-10.2 [facility] Comment on above: Order Comment: Speci men Type: BLOOD SPECIMEN Ordering Facility: [facility] Address: [address] [place] [address] Performed By: #### 1 742-6, 20444-5 #### [facility] CLIA [id number] [address] [place] [address] [place] #### 97662-8 #### [facility] CLIA [id number] [address] [place], [place] [address] [place] [facility] CLIA [id number] [address] [place] [address] [place] Chloride [Moles/Vol] 105 mmol/L Normal 97-105 [facility] Comment on above: Order Comment: Speci men Type: BLOOD SPECIMEN Ordering Facility: [facility] Address: [address] [place] [address] Performed By: #### 1 742-6, 20935-9 #### [facility] CLIA [id number] [address] [place] [address] [place] #### 03812-9 #### [facility] CLIA [id number] [address] [place] [address] [place] [facility] CLIA [id number] [address] [place] [address] [place] CO2 [Moles/Vol] 26 mmol/L Normal 22-30 [facility] Comment on above: Order Comment: Speci men Type: BLOOD SPECIMEN Ordering Facility: [facility] Address: [address] [place] [address] Performed By: #### 1 742-6, 44212-8 #### [facility] CLIA [id number] [address] [place] [address] [place] #### 25191-8 #### [facility] CLIA [id number] [address] [place] [address] [place] [facility] CLIA [id number] [address] [place] [address] [place] Creatinine [Mass/Vol] 1.18 mg/dL Normal 0.73-1.[address] [facility] Comment on above: Order Comment: Speci men Type: BLOOD SPECIMEN Ordering Facility: [facility] Address: [address] [place] [address] Performed By: #### 1 742-6, 97433-0 #### [facility] CLIA [id number] [address] [place] [address] [place] #### 28617-6 #### [facility] CLIA [id number] [address] [place], [place] [address] [place] [facility] CLIA [id number] [address] [place] [address] [place] Creatinine and Glomerular filtration rate.predicted panel (S/P/Bld) 64 mL/min/1.73m??? Normal >=60 [facility] Comment on above: Order Comment: Chitra mcgowan Type: BLOOD SPECIMEN Ordering Facility: [facility] Address: [address] [place] [address] Result Comment: Debbie mated Glomerular Filtration Rate (eGFR) is calculated using the 2020 CKD-EPI creatinine equation. This equation utilizes serum creatinine, sex, and age as parameters. The creatinine assay has traceable calibration to isotope dilution-mass spectrometry. Refer to KDIGO guidelines for clinical interpretation. In patients with unstable renal function, e.g. those with acute kidney injury, the eGFR may not accurately reflect actual GFR. Performed By: #### 1 742-6, 98805-6 #### [facility] CLIA [id number] [address] [place] [address] #### 57696-0 #### [facility] CLIA [id number] [address] [place] [address] [place] [facility] CLIA [id number] [address] [place] [id number] [place] Glucose [Mass/Vol] 96 mg/dL Normal 74-99 [facility] Comment on above: Order Comment: Chitra mcgowan Type: BLOOD SPECIMEN Ordering Facility: [facility] Address: [address] [place] [address] Result Comment: The [place] Diabetes Association (ADA) provides guidance for cutoff values for fasting glucose and random glucose. The ADA defines fasting as no caloric intake for at least 8 hours. Fasting plasma glucose results between 100 to 125 mg/dL indicate increased risk for diabetes (prediabetes). Fasting plasma glucose results greater than or equal to 126 mg/dL meet the criteria for diagnosis of diabetes. In the absence of unequivocal hyperglycemia, results should be confirmed by repeat testing. In a patient with classic symptoms of hyperglycemia or hyperglycemic crisis, random plasma glucose results greater than or equal to 200 mg/dL meet the criteria for diagnosis of diabetes. Reference: Standards of Medical Care in Diabetes 2016, [place] Diabetes Association. Diabetes Care. 2016.39(Suppl 1). Performed By: #### 1 742-6, 93662-6 #### [facility] CLIA [id number] [address] [place] [address] [place] #### 82631-5 #### [facility] CLIA [id number] [address] [place], [place] [address] [place] [facility] CLIA [id number] [address] [place] [address] [place] Potassium [Moles/Vol] 3.7 mmol/L Normal 3.7-5.[address] [facility] Comment on above: Order Comment: Speci men Type: BLOOD SPECIMEN Ordering Facility: [facility] Address: [address] [place] [address] Performed By: #### 1 742-6, 06410-4 #### [facility] CLIA [id number] [address] [place] [address] [place] #### 91441-3 #### [facility] CLIA [id number] [address] [place] [address] [place] [facility] CLIA [id number] [address] [place] [address] [place] Sodium [Moles/Vol] 143 mmol/L Normal 136-144 [facility] Comment on above: Order Comment: Speci men Type: BLOOD SPECIMEN Ordering Facility: [facility] Address: [address] [place] [address] Performed By: #### 1 742-6, 80895-0 #### [facility] CLIA [id number] [address] [place] [address] [place] #### 88709-3 #### [facility] CLIA [id number] [address] [place], [place] [address] [place] [facility] CLIA [id number] [address] [place] [address] [place] Urea nitrogen [Mass/Vol] 16 mg/dL Normal 9-24 [facility] Comment on above: Order Comment: Speci men Type: BLOOD SPECIMEN Ordering Facility: [facility] Address: [address] [place] [address] Performed By: #### 1 742-6, 76322-5 #### [facility] CLIA [id number] [address] [place] [address] [place] #### 60760-9 #### [facility] CLIA [id number] [address] [place] [address] [place] [facility] CLIA [id number] [address] [place] [address] [place] Lipid 1996 panelon 4 Cholesterol [Mass/Vol] 156 mg/dL Normal <200 [facility] Comment on above: Order Comment: Speci men Type: BLOOD SPECIMEN Ordering Facility: [facility] Address: [address] [place] [address] Result Comment: <200 mg/dL, Desirable 200-239 mg/dL, Borderline high >239 mg/dL, High Performed By: #### 1 742-6, 29752-1 #### [facility] CLIA [id number] [address] [place] [address] [place] #### 76774-7 #### [facility] CLIA [id number] [address] [place] [address] [place] [facility] CLIA [id number] [address] [place] [address] [place] Cholesterol in HDL [Mass/Vol] 37 mg/dL Low >39 [facility] Comment on above: Order Comment: Speci men Type: BLOOD SPECIMEN Ordering Facility: [facility] Address: [address] [place] [address] Result Comment: 40-5 9 mg/dL, Acceptable >59 mg/dL, High: Negative risk factor for coronary heart disease <40 mg/dL, Low: Positive risk factor for coronary heart disease Performed By: #### 1 742-6, 07575-2 #### [facility] CLIA [id number] [address] [place] [address] [place] #### 93984-7 #### [facility] CLIA [id number] [address] [place] [address] [place] [facility] CLIA [id number] [address] [place] [address] [place] Cholesterol in LDL [Mass/Vol] 79 mg/dL Normal <100 [facility] Comment on above: Order Comment: Speci men Type: BLOOD SPECIMEN Ordering Facility: [facility] Address: [address] [place] [address] Result Comment: <100 mg/dL, Optimal 100-129 mg/dL, Near optimal/above optimal 130-159 mg/dL, Borderline high 160-189 mg/dL, High >189 mg/dL, Very high Secondary prevention optimal LDL Cholesterol levels are recommended to be < 70 mg/dL Performed By: #### 1 742-6, 96485-6 #### [facility] CLIA [id number] [address] [place] [address] [place] #### 95241-3 #### [facility] CLIA [id number] [address] [place] [address] [place] [facility] CLIA [id number] [address] [place] [address] [place] Cholesterol in LDL/Cholesterol in HDL [Mass ratio] 2.14 {ratio} Normal <2.54 [facility] Comment on above: Order Comment: Speci men Type: BLOOD SPECIMEN Ordering Facility: [facility] Address: [address] [place] [address] Result Comment: Refe rence: 1. National Cholesterol Education Program ATP III Guideline At-A-Glance Quick Desk Reference: National Heart, Lung, and Blood [place]. National Institutes of Health. 2001: NIH Publication No. 01-3305. 2. An International Atherosclerosis Society position paper: global recommendations for the management of dyslipidemia: executive summary, Atherosclerosis. 2014: 232(2):410-413. Performed By: #### 1 742-6, 71520-2 #### [facility] CLIA [id number] [address] [place] [address] [place] #### 45792-8 #### [facility] CLIA [id number] [address] [place], [place] [address] [place] [facility] CLIA [id number] [address] [place] [address] [place] Cholesterol in VLDL [Mass/Vol] 40 mg/dL High <30 [facility] Comment on above: Order Comment: Speci men Type: BLOOD SPECIMEN Ordering Facility: [facility] Address: [address] [place] [address] Performed By: #### 1 742-6, 10378-4 #### [facility] CLIA [id number] [address] [place] [address] [place] #### 07430-2 #### [facility] CLIA [id number] [facility] [place] [id number] [place] [facility] CLIA [id number] [address] [place] [address] [place] Cholesterol non HDL [Mass/Vol] 119 mg/dL Normal <130 [facility] Comment on above: Order Comment: Speci men Type: BLOOD SPECIMEN Ordering Facility: [facility] Address: [address] [place] [address] Result Comment: <130 mg/dL, Optimal 130-159 mg/dL, Near optimal/above optimal 160-189 mg/dL, Borderline high 190-219 mg/dL, High >219 mg/dL, Very high Secondary prevention optimal non HDL Cholesterol levels are recommended to be <100 mg/dL Performed By: #### 1 742-6, 07375-4 #### [facility] CLIA [id number] [address] [place] [address] [place] #### 16977-0 #### [facility] CLIA [id number] [address] [place] [id number] [place] [facility] CLIA [id number] [address] [place] [address] [place] Cholesterol.total/Cho lesterol in HDL [Mass ratio] 4.22 {ratio} Normal <5.10 [facility] Comment on above: Order Comment: Speci men Type: BLOOD SPECIMEN Ordering Facility: [facility] Address: [address] [place] [address] Performed By: #### 1 742-6, 50480-1 #### [facility] CLIA [id number] [address] [place] [address] [place] #### 85258-1 #### [facility] CLIA [id number] [address] [place], [place] [address] [place] [facility] CLIA [id number] [address] [place] [address] [place] FASTING TIME 12 hrs Normal [facility] Comment on above: Order Comment: Speci men Type: BLOOD SPECIMEN Ordering Facility: [facility] Address: [address] [place], [place] [address] Performed By: #### 1 742-6, 83686-9 #### [facility] CLIA [id number] [address] [place], [place] [address] [place] #### 58912-7 #### [facility] CLIA [id number] [address] [place] [address] [place] [facility] CLIA [id number] [address] [place] [address] [place] Triglyceride [Mass/Vol] 199 mg/dL High <150 [facility] Comment on above: Order Comment: Speci men Type: BLOOD SPECIMEN Ordering Facility: [facility] Address: [address] [place] [address] Result Comment: <150 mg/dL, Normal 150-199 mg/dL, Borderline high 200-499 mg/dL, High >499 mg/dL, Very high Performed By: #### 1 742-6, 00398-9 #### [facility] CLIA [id number] [address] [place] [address] #### 19490-5 #### [facility] CLIA [id number] [address] [place] [address] [facility] CLIA [id number] [address] CNOVon 08-13-2023 CNOV Office Visit (CARD P ) WALLY BARROW ([id number]) 1945 M Date Time Provider Department 08/13/23 11:00 AM ABEBA KEEN During your visit today, we recorded the following information about you: Pulse Blood pressure Weight 60/minute 132/85 84.9 kg Abeba Keen APRN.TRACEY 08/23/2023 4:31 PM Addendum [facility] [place] [facility]ynum Department of Cardiovascular Medicine SECTION OF PREVENTIVE CARDIOLOGY 08/13/2023 Wally Barrow CURRENT MEDS: Current Outpatient Medications Medication Sig iron bisgly,ps-FA-B-C#12-suc c 65 mg-65 mg -1,000 mcg (24) tab Take 65 mg by mouth once weekly irbesartan (AVAPRO) 300 mg tablet Take 1 tablet by mouth daily at bedtime. aspirin, enteric coated (ASPIRIN, ENTERIC COATED) 81 mg EC tablet Take 81 mg by mouth once daily. OTC PRODUCT once daily. OTC Force Factor take 3 tablet once per day qa-pj-IVishal-herb no.310 (AIRBORNE EVERYDAY STRESS AWAY) 1,000 mg-200 mg-360 mg pwpk Take by mouth. acetaminophen (TYLENOL) 325 mg tablet Take 650 mg by mouth as needed for pain. sodium chloride (SALINE MIST NASAL) Use in the nose. hydroCHLOROthiazide (HYDRODIURIL, ESIDRIX) 25 mg tablet Take 1 tablet by mouth once daily. metoprolol succinate ER (TOPROL XL) 25 mg 24 hr tablet Take 1 tablet by mouth every evening. azithromycin (ZITHROMAX) 500 mg tablet Take 1 tablet by mouth once daily. Take one tablet 60 minutes prior to procedure. omega 6-ybt-roq-fish oil (FISH OIL) 900-1,400 mg cpDR Take 1,400 mg by mouth once daily. multivitamin tablet Take 1 tablet by mouth once daily. (Patient taking differently: Take by mouth twice daily. Pt takes 1 capsule by mouth twice per day) olopatadine (PATADAY TWICE DAILY RELIEF) 0.1 % ophthalmic solution Use 1 Drop in both eyes twice daily. calcium citrate/vitamin D3 (CALCIUM CITRATE + ORAL) Take by mouth twice daily. Pt takes 2 capsule by mouth twice per day. tolnaftate (FORMULA 3 TOPICAL) Apply 1 application to affected area once daily. cyanocobalamin, vitamin B-12, (VITAMIN B-12 SUBLINGUAL) Dissolve 1 Dose under the tongue once daily. OTC PRODUCT 0.9% NaCl Sinus Rinse Cholecalciferol, Vitamin D3, 50 mcg (2,000 unit) cap Take 1,000 Units by mouth twice daily. ubidecarenone/vitamin E mixed (COQ10 SG 100 ORAL) Take 1 capsule by mouth once daily. psyllium husk, bulk, 100 % powd 1 teaspoonful twice daily. Current Facility-Administered Medications Medication Dose Route Frequency perflutren lipid microspheres 1.3 mL in NaCl (PF) 0.9% 10 mL injection (DEFINITY) INTRAVENOUS DIRECTED PRN sodium chloride 0.9 % (flush) 10 mL (BD POSIFLUSH) 10 mL INTRAVENOUS DIRECTED PRN perflutren lipid microspheres 1.3 mL in NaCl (PF) 0.9% 10 mL injection (DEFINITY) INTRAVENOUS DIRECTED PRN sodium chloride 0.9 % (flush) 10 mL (BD POSIFLUSH) 10 mL INTRAVENOUS DIRECTED PRN ALLERGIES: ALLERGIES Allergen Reactions Lisinopril Cough CHIEF COMPLAINT: Wally Barrow is a 77 year old White male seen today. 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 Briggs, and postoperative atrial fibrillation. Patient presents for ongoing management of cardiovascular risk factors. Chest pain: Yes : Pain Scale: 1-10 scale 3/10, Duration: a few seconds, Frequency: a few times per week and Character: aching. Occurs at random, usually while at rest. No symptoms with exertion. This has occurred for a few months without progression. Claudication: No SOB: yes, noted while pushing his uphill in wheelchair. No significant change in shortness of breath over the last 6 months. Orthopnea: No PND: No LE: No Lightheadedness/dizzine ss: yes, mild - more often when in kitchen. No particular trigger. Palpitations:No Bleeding/bruising: No CARDIAC RISK FACTORS: History question Answer Diagnosis Date Comment Hypertension : Hypertension 11/25/1989 Exercise: Three to five times per week Family History of CAD: Negative Walking 2-3 hours several days per week, pushing wheelchair Avg. Sleep Hours Per Night?: 8 STATIN INTOLERANCE: Adverse Effect History of Statin Intolerance:: No Current Statin Freq: None Intolerance to Ezetimibe: No Intolerance to Niacin: No Intolerance to Fibrates: No Intolerance to Bile Acid Sequestrants: No USE OF PCSK9 INHIBITORS: CARDIOVASCULAR DISEASE HISTORY: CAD EVENTS; Cath: mild <30%: Yes 06/02/18 PVD EVENTS: Acending Aorta Repair: Yes 08/12/18 CVD EVENTS: FAMILY AND SOCIAL HISTORY Lifestyle Tobacco Use: 1.5 packs/day, for 25 years. Quit 08/11/1990. Types: Cigarettes Alcohol (more content not included)... Normal [facility] CNTHERAPYon 07-24-2023 CNTHERAPY OT/PT/Speech Visit (LOPTRM) WALLY BARROW ([id number]) 1945 Date Time Provider Department 07/24/23 12:15 PM LUCY HUTTON LOPTRM During your visit today, we recorded the following information about you: Pulse 75/minute Lucy Hutton PT 07/24/2023 2:49 PM Signed Episode Visit Count: 1 Therapist That Will Accept/Oversee The Plan Of Care: Lucy Hutton Start of Care Date: 07/24/23 Onset Date: 01/22/23 Plan of Care Certification Date: 07/24/23 Next Certification Due Date: 04/07/25 Patient Identified by Name and Date of : Yes REHABILITATION AND SPORTS THERAPY PHYSICAL THERAPY EVALUATION PLAN OF CARE: Assessment: Wally Barrow presents with chief complaint of right shoulder pain that interferes with lifting, recreational activities, physical activities, heavy exertion . He presents with impairments in ADL's, symptom management, and tissue tenderness. PROMIS? (Patient-Reported Outcomes Measurement Information System) scores were reviewed and physical function domain and self efficacy domain identified as within normal limits. Prognosis for therapy is Good due to: current objective clinical presentation . He will benefit from skilled therapy services to meet the goals established for this plan of care as noted below. Based on the patient's history, the components of the examination, the patient presentation, and required decision-making as described in this evaluation, this patient's evaluation falls into the low category of complexity as described by AMA CPT codes. Patient can benefit from skilled care to address patient's impairments and improve their function. Goals for Episode of Care: created on 07/24/23 through 09/18/23 Patient will be able to sleep through the night without waking with right shoulder pain. Patient will be able to perform household activities of daily living without right shoulder pain. [place]arro in home exercise program. Patient Goals: decrease shoulder pain Planned Interventions, Frequency, and Duration: Current Frequency: 1x/month Duration: 8 weeks Total Number of Visits Planned: 2 Planned Treatment Interventions: Therapeutic exercise (30073), Manual therapy (29682), Neuromuscular re-education (47417), Therapeutic activities (21269), Self-shelter management (30004), Patient/Family/Caregive r Education, Body Mechanics Training PLAN FOR NEXT VISIT: progression of shoulder activation / coordination. manual therapy as needed Patient demonstrates good understanding of plan of care and treatment. The above goals and plan of care were discussed and agreed upon by patient/family. SUBJECTIVE: Patient presents today with right shoulder pain. Patient reports history of right rotator cuff repair about 12 years ago. He notes ongoing right shoulder pain. He has worked on maintaining his motion. He had an MRI that showed he has a complete supraspinatus muscle tear. He had a recent cortizone injection that has helped a lot with his current pain. Patient Goals: decrease shoulder pain Functional Limitations: lifting, recreational activities, physical activities, heavy exertion Prior Level of Function: Independent without limitations Relevant History Right or Left Handed: Right Employment: Retired Home Environment Patient Lives With: Spouse Intake Information: Prescription present Previous Treatment: Physical Therapy , Injections Falls Interview: No positive findings with falls interview Pain: Pain Pain Level: 3 Pain Location: Shoulder - Right Description: Aching Frequency: Intermittent Post Treatment Pain Post Treatment Pain Level: Better PROMIS Scales Higher is Better 07/23/2023 Phys Func - Score 44 (mild dysfunction) Phys Func - Percentile 27 % Self-Eff Symptom - Score 41 (Average) Self-Eff Symptom - Percentile 18 % T-scores: mean of general population = 50. 5 points is clinically meaningfully difference Percentiles provide an indication of how the patient's score ranks in relation to the general population. Higher percentile rankings indicate better function/quality of life. 50th percentile is the average of the general population and indicates half of respondents had a worse score. OBJECTIVE MEASURES WITH LEVEL OF FUNCTION: Posture / Alignment Posture: Good Shoulder Observations R Shoulder Palpation Tenderness: Rotator cuff muscles Sensation - Upper Extremity UE Light Touch Sensation: Grossly Intact UE AROM R UE AROM: wnl throughout L UE AROM: wnl throughout UE Joint Mobility R Shoulder joint mobility: WNL UE and Cervical Strength Strength Tested: Shoulder All L UE Strength: 5/5 R Shoulder Shrug (C4): 5/5 R Shoulder Extension: 5/5 R Shoulder Flexion: 4/5 (pain) R Shoulder Abduction (C5): 4/5 (pain) R Shoulder Internal Rotation: 5/5 R Shoulder External Rotation: 4/5 (pain) Education: Education Learni (more content not included)... Normal [facility] CNOVon 07-08-2023 CNOV Office Visit (ORTHMN ) WALLY BARROW ([id number]) 1945 M Date Time Provider Department 07/08/23 10:00 AM REJI WEEMS ORTHDARIUSZ During your visit today, we recorded the following information about you: Weight Height 82.1 kg 1.778 m Reji Weems MD 07/08/2023 11:39 AM Signed Reji Weems M.D. M.M.Sc. Highway Engineering Technician of Orthopaedic Surgery at [place] [address] Office: [phone] Consult requested for an opinion regarding the evaluation and treatment of the above patient. My final impression and recommendations will be communicated back to the requesting physician by way of the shared medical record or letter via US mail. Patient info: Wally Barrow ([id number]) Service date: 07/08/2023 Referred by: No referring provider defined for this encounter. PCP: MD Dae Chief Complaint: Right shoulder pain. HPI:Wally Barrow is a 77 year old Right hand dominant male who presents with 1 year history of Right shoulder pain. History of prior injury yes. Patient reports having prior rotator cuff surgery on the right side, which was fine until a few years after. Describes pain as sharp and radiating down to wrists. He has a remote history of surgery approximately 20 years ago on the right side. He then had left-sided shoulder surgery and believes he aggravated the right side at that time about 10 years ago. 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 Does not notice a loss of function but he has significant pain with doing certain activities. Previous interventions have been tried including physical therapy as well as topical and ckgw-jwb-adccfoe medications. Wally reports a current pain level of 4 (Shoulder-Right). He describes the pain as Aching, Radiating, Sharp. The pain is Continuous, and has lasted for 1 Years. Interventions tried include Reposition, Heat, Positioning. varies from shoulder down to elbow, wrist and neck. does not diminish with nsaids or muscle relaxer use. No shoulder imaging is available at this time. PAIN EVALUATION 07/07/2023 2152 Pain Level: 4 Pain Location: Shoulder-Right Description: Aching;Radiating;Sharp Duration Amount of Time: 1 Duration Units: Years Frequency: Continuous Intervention/Comfort measure: Reposition;Heat;Positio xiomy Comments: varies from shoulder down to elbow, wrist and neck. does not diminish with nsaids or muscle relaxer use Other pertinent Hx: Employer And Job Title: No employer specified (retired) Years Of Education Completed: 16+ years Marital Status: with 7 children BWC: no Physical Therapy: Corticosteroid Injections: Orthopaedic Injections (up to last 5) Some values may be hidden. Unless noted otherwise, only the newest values recorded on each date are displayed. Orthopaedic Injection History 07/08/23 Location shoulder Shoulder Site R shoulder joint Medication 80 mg triamcinolone acetonide 40 mg/mL History of Smoking: Not specified History of frequent fall: no How many falls in the past 1 year: 0 Prior treatments: PT Greater Than 3 Months Modified Activity OTC NSAIDS for Greater Than 3 Months Ice and/or Heat Previous Surgery: Arthroscopic Rotator Cuff Repair REVIEW OF SYMPTOMS: Constitutional: Any recent fevers? Negative Cardiovascular: Any chest pain? Negative Respiratory: Any shortness or breath? Negative Gastrointestinal: Any abdominal discomfort? Negative Integumentary: Any recent skin changes or rashes? Negative Neurologic: Any numbness or tingling? Negative Endocrine: Any diagnosis of diabetes? Negative Hematologic: Any recent bleeding episodes? Negative FAMILY HISTORY Problem Relation Age of Onset Alzheimer's Disease Mother Hypertension Mother Stroke Father Cancer Father Prostate Alzheimer's Disease Sister other (Other) Sister Jeri Lorenzag's Disease PAST MEDICAL HISTORY Diagnosis Date Aortic insufficiency Ascending aortic aneurysm (HCC) Dilated aortic root (HCC) History of GI bleed history of bleeding ulcer HLD (hyperlipidemia) Hypertension 11/25/1989 Mitral insufficiency Paroxysmal atrial fibrillation (HCC) 08/15/2018 Tricuspid insufficiency PAST SURGICAL HISTORY Procedure Laterality Date CHOLECYSTECTOMY HX with concurrent umbilical hernia repair HAND SURGERY HX Right piece of bone removed and tendon repair for arthritis KNEE ARTHROSCOPY Right fluid removed SHOULDER SURGERY HX Bilateral rotator cuff SHX AORTIC VALVE REPLACEMENT 08/12/2018 SINUS SURGERY HX ALLERGIES Allergen Reactions Lisinopril Cough Problem List: reviewed and updated. Social History: Social History Tobacco Use Smoking status: Former Packs/day: 1.50 Years: 25.00 Additional pack years: 0.00 Total pack years: 37.50 Types: Cigarettes Quit (more content not included)... Normal [facility] CNPNon 06-04-2023 CNPN Telephone (CARD P) WALLY BARROW ([id number]) 1945 M Date Time Provider Department 06/04/23 JUAN F PORTILLO CARD P During your visit today, we recorded the following information about you: Bekah Albarran 06/04/2023 12:33 PM Signed June 04, 2023 Patient Contact Number: [phone] Patient last seen within the last year: Yes Date of last office visit: 02/08/2023 Reason For Call: Medication Issue/Question:Patient calling to ask if it okay to stop Asprin 5 days prior to MRI with injection scheduled for 06/09 Physician: Juan F Portillo MD Patient was informed that non-urgent calls may be returned within the next three business days. Yes Bekah Albarran Allergies As of Date: 06/04/2023 Noted Allergy Reaction LISINOPRIL 04/26/2017 3 - Cough Date Reviewed: 02/08/2023 Reviewed by: Per Simeon, Ice Maker - Fully Assessed Reason for Visit: Medication Question [2238] Prescriptions as of 06/04/2023 - OTC PRODUCT once daily. OTC Force Factor take 3 tablet once per day - tn-uc-W-theanine-herb no.310 (AIRBORNE EVERYDAY STRESS AWAY) 1,000 mg-200 mg-360 mg pwpk Take by mouth. - acetaminophen (TYLENOL) 325 mg tablet Take 650 mg by mouth as needed for pain. - sodium chloride (SALINE MIST NASAL) Use in the nose. - hydroCHLOROthiazide (HYDRODIURIL, ESIDRIX) 25 mg tablet Take 1 tablet by mouth once daily. - irbesartan (AVAPRO) 300 mg tablet Take 1 tablet by mouth daily at bedtime. - metoprolol succinate ER (TOPROL XL) 25 mg 24 hr tablet Take 1 tablet by mouth every evening. - azithromycin (ZITHROMAX) 500 mg tablet Take 1 tablet by mouth once daily. Take one tablet 60 minutes prior to procedure. - omega 3-qpm-eob-fish oil (FISH OIL) 900-1,400 mg cpDR Take 1,400 mg by mouth once daily. - multivitamin tablet Take 1 tablet by mouth once daily. - olopatadine (PATADAY TWICE DAILY RELIEF) 0.1 % ophthalmic solution Use 1 Drop in both eyes twice daily. - iron bisgly,ps-FA-B-C#12-suc c 65 mg-65 mg -1,000 mcg (24) tab Take 65 mg by mouth once daily. - calcium citrate/vitamin D3 (CALCIUM CITRATE + ORAL) Take by mouth twice daily. Pt takes 2 chewables by mouth twice per day. - docosahexaenoic acid/epa (FISH OIL ORAL) (Discontinued) Take 1,400 mg by mouth twice daily. - ls-ah-rstP-ynfDn-Vwz-Jz s-hc124 334-1.7 mg chew Take 1 tablet by mouth once daily. - tolnaftate (FORMULA 3 TOPICAL) Apply 1 application to affected area once daily. - cyanocobalamin, vitamin B-12, (VITAMIN B-12 SUBLINGUAL) Dissolve 1 Dose under the tongue once daily. - OTC PRODUCT 0.9% NaCl Sinus Rinse - aspirin 81 mg chewable tablet Take 1 tablet by mouth once daily. - Cholecalciferol, Vitamin D3, 50 mcg (2,000 unit) cap Take 1,000 Units by mouth twice daily. - ubidecarenone/vitamin E mixed (COQ10 SG 100 ORAL) Take 1 capsule by mouth once daily. - psyllium husk, bulk, 100 % powd 1 teaspoonful twice daily. 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] 01/09/2017 Nonrheumatic aortic valve insufficiency [I35.1] 05/26/2018 Thoracic aortic aneurysm without rupture (HCC) *05/26/2018 Discharge planning issues [Z02.9] 08/11/2018 Preop testing [Z01.818] 08/11/2018 08/15/2018 Ascending aortic aneurysm (HCC) [I71.21] 08/15/2018 Aortic insufficiency [I35.1] Hypertension [I10] HLD (hyperlipidemia) [E78.5] History of GI bleed [Z87.19] Dilated aortic root (HCC) [I77.810] 08/15/2018 Acute post-operative pain [G89.18] 08/12/2018 08/16/2018 Cardiac insufficiency (HCC) [I50.9] 08/12/2018 08/14/2018 Postoperative hypotension [I95.81] 08/12/2018 08/13/2018 Stress hyperglycemia [R73.9] 08/12/2018 08/15/2018 On mechanically assisted ventilation (HCC) [Z99*08/12/2018 08/13/2018 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 [J95.811] 08/13/2018 08/20/2018 Transition of care performed with sharing of cl*08/15/2018 Volume overload [E87.70] 08/15/2018 08/20/2018 Atelectasis [J98.11] 08/15/2018 08/19/2018 Paroxysmal atrial fibrillation (HCC) [I48.0] 08/15/2018 Encounter Status:Closed by BEKAH ALBARRAN on 06/04/23 [facility] PT - Assessmentson 3 PT - Assessments [id number]#1.00C D:127 [facility] PT - Home Exercise Programon 05-06-2023 PT - Home Exercise Program [id number]#1.00 CD:127 [facility] PT - Home Exercise Programon 04-25-2023 PT - Home Exercise Program [id number]#1.00 CD:127 [facility] PT - Home Exercise Programon 04-23-2023 PT - Home Exercise Program [id number]#1.00 CD:127 [facility] PT - [place] 04-12-2023 PT - Orders [id number]#1.00 CD:127 [facility] PT - Home Exercise Programon 04-10-2023 PT - Home Exercise Program [id number]#1.00 CD:127 [facility] PT - Assessmentson 3 PT - Assessments [id number]#1.00 CD:127 [facility] PT - [place] 04-04-2023 PT - Orders [id number]#1.00 CD:127 [facility] Consent for Treatmenton Consent for Treatment [id number]#1.00C D:127 [facility] PT - [place] 03-28-2023 PT - Orders [id number]#1.00 CD:[address] [facility] Physician Orderon 03-28-2023 Physician Order [id number]#1.0 0CD:[address] [facility] XR Shoulder Complete Righton 03-28-2023 XR Shoulder Complete Right Exam Date/Time: 03/28/2023 16:56 EDT Reason for Exam: M1 osteoarthritis Report IMPRESSION: POSTSURGICAL RIGHT SHOULDER WITH POSSIBLE RIGHT ROTATOR CUFF INSUFFICIENCY. CLINICAL HISTORY: osteoarthritis COMPARISON: NONE FINDINGS: AP, internal, external rotation, Y and axillary views of the right shoulder. Postsurgical tendons are identified within right humeral head. Narrowing right acromiohumeral interval. No fracture, dislocation, bone lesion. Median sternotomy.. Ordering Provider: Onel Isaacs FINAL REPORT Dictated: 03/28/2023 5:13 pm Jeovany Omer MD Signed (Electronic Signature): 03/28/2023 5:13 pm Signed by: Jeovany Omer MD Transcribed by: VALARIE Technologist: KIT Technical Comments Radiation Dose: Ka,r in mGy = na DAP = na [facility] Coding Summary.on 03-14-2023 Coding Summary. CD:[id number] Ww+ PGhlYWQ+UO2SBZLbE75ilKV pzL1iH5LMIErLGfpzMJWFGS hTTsDerrPlSS6itMNeUDAf IC8+GO9aEWPxDnvzmDVzc6Q 5kMT0O92sqe4nOKquqNM4FO HcXtRswenmb4lhvDv7UPvbV mluOyBt GRNabO43DWW0rF64Sf34qIN lwNSnk4pigBi0PuShDECdRA U6xZkwJXybe6FuSIStZ39be SNhn9A7 BHYypKmptMEvWlIvrHT9nD3 mNIhdmdvly9rqsefuAwh5mq 74rYCvo1V9jPW3X4RmjsH2N GJvbGQg ZhhypUOUvR9twjywo5hcrkm hIdRtZMIbNYg4JPi5VDJttE bvIhDvXE02DOP8ZGCpaiPlT 2FsLWFs tMwjFaA9y2Q8Ja4TF1XODqw jN1OBQFATLQcqhHF+PC90cj 11T6FiYpptZkp7XRMkHSU5i MV9eB3s KGLiHUrqq4E3rDN9G2CfztS zfh1ly0moTTNxKAhxF81bwT Yrv8C2SMZpeES7QFWxxYtzK iBzaG93 Oyc+XDPjaHkys5VdIeqhd8i bn2lwxQk1KfwqGRXuilKabD igPDK2p0NyQq9vNUZjrDY0s GH7iX1f SmFcMfG6KUaxN643NzNhuVW rHccyS69rP3IlnVO+PHRyPj h8WMSygEdeRS7tG5GzXJJmt mctbGVm lWkaNN9wOQUrfaprPVBkrD0 pTENcW4i5NzAvEnH3SGouD7 WwSENmfmabSj00fQ2vUcTtZ gX1GXdp V3EmbsO3PRUsyHGgVNpaDRT 8L54gj7D4CHZxHUJyGVJ0eX Y8nN7fvPlzhiclbYKrkWqto mVydGlj LEcsMKjkB854USJunGzaSfT vZGluZyBEYXRlOiAgMDQvMj AvMjAyMzwvdGQ+WIAmWLL4s WxlPSAn iNVwWNrlYl2cqCqgnEpqAA9 zYHEwrpffLHXofL6pSZEfbW TtiUyhWZ2uGQSdfppex023U iAxMHB0 SBBnuGQyZ4LdmH8cIhBdIRM cMAYvC8OegADyBUqrL030JZ tsMrN4LOZuxcMbF8OmHUDyz WduOiB0 u8Z1Ss0Nk8BvbymeK0QrkGB bIvUiJtgjEFw4U7ZiLuveuO I+CT08IMXxYI59RKl8PAW0s WxlPSdi WEOvI7GvlY7eGpBgOPLcIIN kOyc+PHRhYmxlIHdpZHRoPS lyGQRxWyYqvRgkVK8hMq6bL GVyLWNv aVnopMTsRqZos0scJMWaIWn uNF9xaEtnA6UwjXD4SDDqd7 e5Tf42B63vB6UvgAD+PGNvb NN8zXF4 rP3zYdOiFwG8MStkW288GwM ybZLfEyfcs8dwo9xntNy6Jy X4LGVuwqSpuYklLLA9g4ZvU x73Q27t IHdpZHRoPSIxNSUiIHZhbGl hji6ddI3hAe2+YQIbaJC6gP C5fT9rMzMwYrW8WBiaK236H nRvcCIv Vyknb6nni2rfuIo6XxSkOGO fspElnGvzIRL7p1HqBn04R6 GteKfuo2CjFsm6uk82dIZvv 7F1pSP3 C5DfAXTubdapjQJnlSvhGJ0 sJCUzvbuxMUNjrS2sRSHgD8 r7BmHlPwG4BEppH4RvwoP6H GJvbGQg RZDemIZEfL0lramoz0qtzzq hVyYyNZTfZXp5JNy9QTPdeG ruPyQlSKI6RtZ1XHT2oSKam O9zrFec mjaknY1sOvw+YZI7nQPfaVS NQV2bIovohRW+KHQuPTK8bW viEJvaLGEmlN1gQBJgB2u4P iAwLjA1 KOvxF0QhnhT8ARJdfONnQNG ciSIQgS1vhhgse4njszkbRr BrDXIyCYk6YBu9TDBfeEodX iBsZWZ0 LfN3XAH7cBHfaG1jgDmdoog hbR6pIki+AsrfjHuzDGY3EV f4Z1FvIrt3GWHqyRaiSD8az GFkZGlu Tu4vcFsuiXovZM6sCCChdoz ai603DtPis1zpIZEawPUcEN riIOL6D29sh0A9TFBeFIRrC KB3oNJ0 lF8ayNilbqxjjEWffJegiwD wyZefNUaxRLlyN719EPVwkC qmToUwLJk4M4DkTbc2YONxr RrxDC9k dDLpYPnrSg4teSkfwCbpET6 yOPFmfmffu347YwMbk2glQG UytYJdEOvkSVH6V54ue7Y5W CMwMDAw TZZ9xFY7kX7cpSiqpoetsDZ mdDsgdmVydGljYWwtYWxpZ2 73NKKazXjbGbZovFo7R8UmD ua8YDUp fAggJU0itVHwOVlcQv4bcPu ssUgmGG8fBSSsxbugi749Ho Rmr1dtLFPbhBEbUQcaKOL5P 05re1E3 VGYrURAkHZD2oAA7zF8xjPd nbjogbGVmdDsgdmVydGljYW ffZMawB313EBArrPemIrEtt GllbnQg PAkjIMj0V1AbVeqspZN+PC9 8BPCgNG58bMWxyVOlh4tyxJ s6FxWaWOJbPII9gCoaRLbyd 3JkZXIt R66ctKXab5R8VDKikJoxbXL jRvHegUO8gS0rQMvmtjhwi2 tfizinDqkwr4fgaf19uK59H 29sIHdp ZHRoPSIzMCUiIHZhbGlnbj0 utN6tWl4+LPRlvZK4mBZ9pX 6cBJCgAiM2GYfuX481PaPif CIvPjxj h6mmy2bdzBn8LkK6TEPdedP aoCibCEZ6i9LvWh12N88pXS dpZHRoPSIyMCUiIHZhbGlnb q6xsQ2r Ii8+JNHxoKU6gMY8uV8hEpE lDqV8HVixU060LdNjgDAbJi aaL15rH4HylYR+EGNhWgu2R CBzdHls MV0yvEUgRXkoAd0wPNV2AeE xOfIvLHvcF6AgVPFkakcxon lllLA2KFHcUZAwpB43Lj4ib DogMTBw dBQDhB1irbdmb4aashohUmF wVBSiCEe6TVg8ALIvtQblMq XvQVI1NhA7MZC8tOLxfT7pe Glnbjog dV8aU5AzNGZvmphkPs61yM3 mJiSeVxS5VAcxDbf+RURFUi goEGQPDXOXQYD7N8UsUqx7J CBzdHls BY7toXItBRhhRn7brRckoPa sXQ6nJVYdbzdiMZDjvP0gKR SmiFBfvGawXG6zYXAuxghrp 250OiAx UUJ7FEAtgSJxX7DhsG4nWfW pOBWoKDCvM2DcgQPaTFjfQ0 13ULniRlA7FWKuyuOnY9EvO WFsaWdu RmK9m4X8Nl0dVL5lVI5mMIP 2KM93ZR95sETsg2Z7vCB9T4 UiGQWxkeuszkhdaLV5OJOfZ DUwaW47 rBJdWOezKn3xf7T4v054MQL nAQZvuN71Qq8fvBmoAWUneM SOhM7kcvoir5tpcywwWiHoQ DAwMDt0 WKo7HYTfjHqtPnVjWMQ5RrQ 9OJB5uQCwbK6qtJelojpjjV 9wOyc+WoWgVLBwgoH9E8BvW te7WWCq wPybSJ9qbDNxIWkrHw8muVw cbUeeHH0xJMFxjjokTMPqjY 4hBYSbqRQanMwcQM7sLVDap bzyt589 YcGfEZR0CQJtdQPbI6SnwO3 gUrWuGVFaTZYtG2HehEPpSW tgA081CDiaHxK7ETBsbnYjM 2FsLWFs zClgVvZ7t1A9Fh2HYXlaNX0 6BY93uOKjg9Y7rGB7R5GuOF RqqmskwncisKI9RFMgPMCdh H17lORu RXguHk6xy0A2b085EVGvKAB ruP15Bb8fsXxlTOWldVUSuV 5fkmmaq8pmyuogZsIdHZVcQ Ot6HOa1 RLPwyQeeMvSuBEA4PfH0DBF 9zGBbrG3zzYruniadhP4mLo c+AuSufPWzvQ5bKQ84OT26E 3RyPjwv dGFibGU+PHRhYmxlIHdpZHR iSJjbYDHnYzIdoFqiDM1dXu 9yZGVyLWNvbGxhcHNlOiBjb 2xsYXBz GYroUZ4flLreG0CqmCA7JYZ pt1n3Tk39D40iC3WcsBU+PG OdwFZ0dDY7hA1fBuAeXwE5A RutX817 VkKspLSuMxwqb7gdy0yaqCq 8QgHzMTEsuqKxkVrjVMN1r8 JtHo89L35yZBylOPPxQBGzO CUiIHZh fOykks9gbH8oKa2+PGNvbCB 1bXJ2kT7mCtRsTcE6YHjrC4 12TbYqpHQpVppvN99hY0Oym XA+PHRy Kri1FYJaiEnfBJ2zsRFuBKo uSl4mJWO5MuYkYpMyWVbsN9 JkSJLncfjlzffnuLZ8QTDuJ DUwaW47 Oe1ptZvxJy8yYXUoUMW1LFL fvFNjA4XjcE4vKoUtTIClYT IwT8WpoIItGZwbP056RIfeT wJ9FGDm mcPdC5HoKNYimOtxZdP3c9S 1Cq7OxWljmKVtGC6pJyRqLX j8P5NtQgv9FMVpmNqqPU5ni GFkZGlu Vi6hkWwdtDpsSR1iBMVntdi fn060QmDyi5ruKVXqeBLqSW bmTDH7E76nc8U0QWGaWQQfJ AE8hHS0 bM2gbSkohznzpSKwyFwooqX iwTjzYCzlLYykR449HOChkG tqNuDUZcq8W8PjRpv4BUUwa SnnDR8j wVTdXVgpEa2gjTktrNgnQA2 mXJWebfcua668QdOfo8xrNZ HsxFWsYEjeNKQ1P18zb3Z8V CMwMDAw RUI3jKY5pF0unNkuzuwedOV mdDsgdmVydGljYWwtYWxpZ2 21DJIbgIacQt8YOmh2E5NlL rb5DVDi oYelSZ1feWGmERceKc2xkCd rhTrgXA1hJXTobepml695Ki Wdl2jhISTeaHRdZRhhHMT9N 25gt9Z5 THSzAIKrRPV9jIX8qP7oaTq nbjogbGVmdDsgdmVydGljYW oiKBleQ934GKCldLwyEkMxf WVyOjwv dGQ+FW72ip36Z7SuZmffCup 2EDQlMVY6qSB5uC2vBDTjYL hoz1A9zTH2W2IljaPzbd9cs 2xsYXBz XPqmE28r (more content not included)... [facility] Consent for Treatmenton 02-23 Consent for Treatment [id number]#[id number] D:127 [facility] PT - Consentson 03-13-2023 PT - Consents [id number]#[id number] :127 [facility] PT - Orderson 03-13-2023 PT - Orders [id number]#[id number] D:[address] [facility] Family Medicine Office/Clini c Noteon 03-05-2023 Family Medicine Office/Clinic Note Chief Complaint EST sharp pain in right side of chest HPI Staff Pt 77 yo male presents with pain in right chest Presents today for evaluation of chest pain. Time since onset: started a few years ago with open heart surgery- laid down on chest about 2 years ago and felt a sharp pain Onset: intermittently x 2 years Severity: 10/10 when pain hits, 0/10 otherwise Location: right side of chest Radiation: no feels like a tiny alla or knife going straight into chest Episode duration: instant, then goes away right away Related to exertion: certain movements like leaning forward and dangling right arm, lifting heavy things with right arm SOB: no Nausea: no Heartburn: no Palpations - no Current pain status: 0/10 Treatments attempted: antiinflammatory - Mobic x1 month, no changes Patient has been worked up by cardiology and PCP for that. Including echo, nuclear stress test, exercise stress test, CT scan, chest x-ray. All testing is, negative today. Patient's last saw PCP approximately 1 month ago was given Mobic at that time x1 month without any significant improvement. Patient does admit he has follow-up appointment scheduled for 03/05/2023 with his PCP, but would like to see if we can get something started prior to seeing PCP. History of Present Illness I have reviewed and verified the staff HPI to be accurate for this encounter. Review of Systems PHQ Score Initial Depression Screen Score: 0 Physical Exam Vitals & Measurements T: 36.6 ?C(Oral) HR: 56(Peripheral) BP: 124/80 SpO2: 97% HT: 70 in HT: 177 cm WT: 87.5 kg WT: 192.5 lb BMI: 27.93 General: Well developed, well nourished, in no acute distress Neck: no adenopathy Lungs: Normal respiratory effort and clear to auscultation Cardio: _ Regular rate and rhythm. Musculoskeletal: _ Normal range of motion of neck, right shoulder. Pain is reproducible by leaning forward and tingling right arm anteriorly. Mild pain on discomfort of the mid right pectoral muscle. Extremity: _ Right upper extremity is pink, warm to the touch. Brisk cap refill. Sensation intact. Right radial pulses 2+. Skin: _ There is no obvious erythema, ecchymosis, or edema. No ecchymosis to palpation of the area. Mental Status: Alert and oriented x3. Normal mood and affect Assessment/Plan 1. Tendonitis of right pectoralis major (M75.81: Other shoulder lesions, right shoulder) Discussed with patient given negative work-up previously, would suspect musculoskeletal in nature. Agree with the anti-inflammatory therapy started by PCP. However, patient does not believe this is helped today. Will trial Medrol Dosepak. May use Tylenol for breakthrough discomfort. Recommend rest, heat, range of motion and gentle stretching. Avoid movements that trigger pain. Follow-up with PCP as scheduled on 03/05/2023. Seek medical attention immediately for any chest pain, shortness of breath, palpitations, mental status change. Patient verbalized understanding of treatment plan. 2. BMI 27.0-27.9,adult (Z68.27: Body mass index [BMI] 27.0-27.9, adult) The standard range for ages 18 and older is >=18.5 and < 25 kg/m2. Your BMI today was above this range, this falls in the overweight to obese category and there are medical benefits to weight loss. We can offer counselling, referral, and/or medical support in addressing this problem. Your BMI and weight management will be followed at subsequent visits. Follow-up No qualifying data available Patient Education Pectoralis Major Tear Rehab-SportsMed BMI for Adults Problem List/Past Medical History Ongoing Bleeding ulcer Colon polyps Diverticulosis Hemorrhoids History of colon polyps HTN - Hypertension HTN - Hypertension Loose stools Low back pain Mass of parotid gland Rotator cuff tear Historical FH: Hypertension Procedure/Surgical History Colonoscopy (02/19/2022), Colonoscopy (2014), thumb arthritis, right (2004), Tonsillectomy (1958), Cataract extraction and insertion of intraocular lens, cholecystecomy/umbilica l hernia surgery, left rotator cuff repair 1-2-14, right hand/wrist surgery, right knee surgery, right rotator cuff repair, sinus surgery. Medications Airborne Everyday, 1 tab, Oral, Daily amoxicillin, 500 mg, Oral, Once Aspir 81, 81 mg, Oral, Daily calcium citrate, 250 mg, Oral, BID Co-Q10, 100 mg, Oral, Daily hydrochlorothiazide, 25 mg, Oral, Daily irbesartan 300 mg Tab iron gluconate, Oral, Daily losartan, 12.5 mg, Oral, Daily, Not taking Medrol Dosepack 4 mg Tab, 1 packet(s), Oral, As Directed metoprolol 25 mg ER Tab, 25 mg= 1 tab(s), Oral, Daily olopatadine 0.7% ophthalmic solution, 1 drop(s), Eye-Both, BID Saline Mist 0.65% nasal spray, 1 spray(s), Nasal, Daily saw palmetto, Oral, Daily sodium chloride 0.9% Irr Kathryn 500 mL tiZANidine 4 mg Tab, 4 mg= 1 tab(s), Oral, q8hr, PRN Tylenol, 650 mg, Oral, QID, PRN Vitamin D3, 1000 mcg, Oral, BID Allergies amoxicillin (Diarrhea) Vicodin (Unknown) codeine (itching) (more content not included)... [facility] Comment on above: Result Comment: Elec tronically Signed By: TREY Fuchs APRN, [place] X\.br\Date and Time Signed: 03/05/23 09:10 EDT Patient Educationon 03-05-20 Patient Education Nutrition BMI for Adults Body mass index (BMI) is a number that is calculated from a person's weight and height. BMI may help to estimate how much of a person's weight is composed of fat. BMI can help identify those who may be at higher risk for certain medical problems. How is BMI used with adults? BMI is used as a screening tool to identify possible weight problems. It is used to check whether a person is obese, overweight, healthy weight, or underweight. How is BMI calculated? BMI measures your weight and compares it to your height. This can be done either in [place] or metric measurements. Note that charts are available to help you find your BMI quickly and easily without having to do these calculations yourself. To calculate your BMI in [place] measurements, your health care provider will: 1. Measure your weight in pounds (lb). 2. Multiply the number of pounds by 703. ? For example, for a person who weighs 180 lb, multiply that number by 703, which equals 126,540. 3. Measure your height in inches (in). Then multiply that number by itself to get a measurement called inches squared. ? For example, for a person who is 70 in tall, the inches squared measurement is 70 in x 70 in, which equals 4900 inches squared. 4. Divide the total from Step 2 (number of lb x 703) by the total from Step 3 (inches squared): 126,540 ? 4900 = 25.8. This is your BMI. To calculate your BMI in metric measurements, your health care provider will: 1. Measure your weight in kilograms (kg). 2. Measure your height in meters (m). Then multiply that number by itself to get a measurement called meters squared. ? For example, for a person who is 1.75 m tall, the meters squared measurement is 1.75 m x 1.75 m, which is equal to 3.1 meters squared. 3. Divide the number of kilograms (your weight) by the meters squared number. In this example: 70 ? 3.1 = 22.6. This is your BMI. How is BMI interpreted? To interpret your results, your health care provider will use BMI charts to identify whether you are underweight, normal weight, overweight, or obese. The following guidelines will be used: ? Underweight: BMI less than 18.5. ? Normal weight: BMI between 18.5 and 24.9. ? Overweight: BMI between 25 and 29.9. ? Obese: BMI of 30 and above. Please note: ? Weight includes both fat and muscle, so someone with a muscular build, such as an athlete, may have a BMI that is higher than 24.9. In cases like these, BMI is not an accurate measure of body fat. ? To determine if excess body fat is the cause of a BMI of 25 or higher, further assessments may need to be done by a health care provider. ? BMI is usually interpreted in the same way for men and women. Why is BMI a useful tool? BMI is useful in two ways: ? Identifying a weight problem that may be related to a medical condition, or that may increase the risk for medical problems. ? Promoting lifestyle and diet changes in order to reach a healthy weight. Summary ? Body mass index (BMI) is a number that is calculated from a person's weight and height. ? BMI may help to estimate how much of a person's weight is composed of fat. BMI can help identify those who may be at higher risk for certain medical problems. ? BMI can be measured using [place] measurements or metric measurements. ? To interpret your results, your health care provider will use BMI charts to identify whether you are underweight, normal weight, overweight, or obese. This information is not intended to replace advice given to you by your health care provider. Make sure you discuss any questions you have with your health care provider. Document Released: 07/23/2005 Document Revised: 10/24/2018 Document Reviewed: 09/24/2018 TabbedOut Patient Education ? 2019 [employer]. Orthopedics Pectoralis Major Tear Rehab Ask your health care provider which exercises are safe for you. Do exercises exactly as told by your health care provider and adjust them as directed. It is normal to feel mild stretching, pulling, tightness, or discomfort as you do these exercises. Stop right away if you feel sudden pain or your pain gets worse. Do not begin these exercises until told by your health care provider. Stretching and ijtzk-ki-hrmrdp exercises These exercises warm up your muscles and joints and improve the movement and flexibility of your shoulder. These exercises can also help to relieve pain, numbness, and tingling. Pendulum This is a shoulder exercise in which you let the injured arm dangle toward the floor and then swing it like a clock pendulum. 1. Stand near a wall or a surface that you can hold onto for balance. 2. Bend at the waist and let your left / right arm hang straight down. Use your other arm to keep your balance. 3. Relax your arm and shoulder muscles, and move your hips and your trunk so your left / right arm swings freely. Your arm should swing becaus (more content not included)... Normal [facility] EXERCISE STRESS ECG (WITHOUT IMAGING)on 02-08-2023 [facility] Basic metabolic 2000 panelon 02-06-2023 Anion gap [Moles/Vol] 11 mmol/L 9 - 18 mmol/L [facility] Calcium [Mass/Vol] 9.8 mg/dL 8.5 - 10. 2 mg/dL [facility] Chloride [Moles/Vol] 107 mmol/L High 97 - 10 5 mmol/L [facility] CO2 [Moles/Vol] 25 mmol/L 22 - 30 mmol/L [facility] Creatinine [Mass/Vol] 1.43 mg/dL High 0.73 - 1.22 mg/dL [facility] Estimated Glomerular Filtration Rate 51 mL/min/1.73m Low >=60 mL/min/1.73m [facility] Glucose [Mass/Vol] 93 mg/dL 74 - 99 mg/dL [facility] Potassium [Moles/Vol] 3.7 mmol/L 3.7 - 5.1 mmol/L [facility] Sodium [Moles/Vol] 143 mmol/L 136 - 144 mmol/L [facility] Urea nitrogen [Mass/Vol] 20 mg/dL 9 - 24 mg/dL [facility] CBC panel Auto (Bld)on 02-06 Erythrocyte distribution width (RBC) [Ratio] 14.1 % 11.5 - 15.0 % [facility] Hematocrit (Bld) [Volume fraction] 46.7 % 39.0 - 51.0 % [facility] Hemoglobin (Bld) [Mass/Vol] 15.2 g/dL 13.0 - 17.0 g/dL [facility] MCH (RBC) [Entitic mass] 29.0 pg 26.0 - 34.0 pg [facility] MCHC (RBC) [Mass/Vol] 32.5 g/dL 30.5 - 36.0 g/dL [facility] MCV (RBC) [Entitic vol] 89.1 fL 80.0 - 100.0 fL [facility] Nucleated RBC (Bld) [#/Vol] <0.01 k/uL [facility] Platelet mean volume (Bld) [Entitic vol] 11.0 fL 9.0 - 12.7 fL [facility] Platelets (Bld) [#/Vol] 152 10*3/uL 150 - 400 k/uL [facility] RBC (Bld) [#/Vol] 5.24 10*6/uL 4.20 - 6.0 0 m/uL [facility] WBC (Bld) [#/Vol] 7.89 10*3/uL 3.70 - 11. 00 k/uL [facility] NM CARDIAC PERF STRESS/PHARM on 01-11-2023 [facility] Coding Summary.on 01-10-2023 Coding Summary. CD:[id number] Gh0 bWw+PGhlYWQ+QF9QESGsV38 bfIYztU8IX1cHCL5YLRCZJS FRHE2JHT9wpXQ8NGrcK8Zzs iAv UfkenFMmSC72JFb3HOG5qRq wSVmgrE7nnGYfA5l7YjFpVS 28uF61DLjrZUHcDmC4XtVql jsgbWFy Y1dsSuGjrWDaDpu+PHRhYmx lIHdpZHRoPScxMDAlJyBzdH xeOQ6oMe0eCHLaUBCxmGqlz HNlOiBj m2tdNJLbXFnrMZ1ioHgyW2H snQV0BWVtb5f4Fk01uXX+PH GxIKY9lVkrSAmuw943YjJdc 3fxUBT8 oRLmHUcoWTB6X99yf3C9JKP zSZYqMPA4zQG7kO1raBbjaq foH7OhiYTsHqO0JES2oJScs Y5fxCht uthxiX4jYzk+I64SAU2PPAD FFF2MQgs7O9QnXxsiaPH+PC 70ZGAeNC36ySTgpQPls0otk Ye1IqPd HWFvNUZ1pQdiXYicl9EhEUY pQ48lkBFjg2T6HUOjzGddyM MvDgZrlMZ7nX5sMFueojjcp 2hvdzsn Vmddb9enum31lU31X16wMMl vQXVjIXB4QNQmOTAxwKdjtr 9xeW3wVn1+OSali4gfc8yqu Al5NoOm XULsblVstXxbHKJ5h3XqXc5 6Q5SucFjge3ZfIte9de10wO Ouk6I6bIY7JJhhCUTkbE7fV WxlZnQ6 POEkLtUnmS98iLWrRCqgBr6 qgFpebKbcLI1iXCKdumzgEZ CnjN6qXGTjtSDtgCauOZ4jL TBpbjtm n684DoRvOLN6OAAjcADfZ6U uxH3pWpZmXZVtZEQcU5FopH CsSDuoT169SQxyKvY9KDVcv bJnM0Rv EFUhjXypAqV1s8Z7Ee4Dv1B rqrscNQI0VWezQPEuDqE3Be NfVaM8K8YwRtf4NUPbjJguB Y0qE5El VNWryfijcyymrWS5DNGgPZE spY02jCUzPCxwMb2da4F6w1 69ZUVcROMhsL91Wr2syDgwN TBwdCBU aI3kukqmf6qtpfulXhIkEAU kQNo9GYh7GKXuzVqbPjViAJ C3SoR5GII7gRPwbX8jnJnkf vmfyE6z Oyc+S51lpS9gIXZ9TTS4mko mVFNatbKfIT67UG76M8PwGm wvdGFibGU+PGRpdiBzdHlsZ D6nGsQn r6oua4NqMZktS3RcTFDpMNl yWra8UOLvYPR3zCH7sI4xAK OzPPewe0Z5fCM7Q9AxaxMll k0lg2ku RAQdKMmhE95cuHXep6R5SZB esEZ3PAAzfTrdPzLioT19Sm c+HUEouEnmw2GxLeadw7dky 0dogSx0 IkDcSSNqekLefStdIZZ1n3D iSb90I60wRGkpGHFyHARaGC IpUVFlkAadbq3dwG3iJk5+P GNvbCB3 jJZ3lD2yOKWoYsU5YIpdC80 9QbHyxRKmLlznp1wiy5wrsZ f9EaCaRRSaihTpeHxyXDY6l 5WlLj41 Z81zYTdrTSPwJXTdZCHqNMJ gkCyuly8gqB2fSx8+PC9jb2 wquq51zM15rPU+GWVmKQV9y WxlPSdw EHNlwT2iJDpaGtE2HERkIaI kdJ95hYNtMXvyWw5fvEotaL vpPR8jFOBiivjtk623PnYdj 2xkIDEw dRPmJOmhMJE0P94kh0D3IOS dDLVdFUN1sBT4zC4huSeeix ogbGVmdDsgdmVydGljYWwtY MsmR915 IHRvcDsnPlBhdGllbnQgTmF gTLm5M1BcShw7NNLxuClzUY 1drERcURjcDg9prCwodVsqQ E0iPXVr qevfw853UlGos1dcIWBaoQN hZQutBXC8C56ov3Y8VMPoWZ BrQHJ1gHP5mT6amOxaqwnzp GVmdDsg ivJpqDzfUTxvSEveA483UTB rmUcjAtYxevIlHGDwtDE4RO 63XL52uZEhk4Z9bHW4A7KoR GRpbmct mrjdlNI6BBQdTSJxpG00Xi6 foJvbRn5fQYCrYEP5NRGytZ XrR4TiiP6vDeSoCWInJGSeI 3RleHQt BEuiQ899DImgOgW2OMKgbxQ bH8BnQUJkmPaiMzZ6a1C5Xy 4OH4O0EF75PN18cYNnl0U3y NW1Y9Nl DVBucvdjaylwsJY1RBAiXPL dwP06Hn7rkGolHa1mCRAcWW N8WPLwiQSgX5GpqZ2oAbCuC DAwMDAw D8InnMYePAdfM120DPfrMgC 6MRZnqtSzW9CyAAEonWdwTb E4w3T6Rn9XIZx3NJ48MA41b ZVmo0R8 aAQ9E6WsITIpmlsztndngOR 0KZMwXHTqrB72Tv9vySqzTo 7gWTHwQHZ5GDVaiPCvI2Slx W6kPgIa UCCvENDhC4ClsIIsZGboJ97 4CFkqPuB3PFUjjgWiP6MvEH JouDvwPvM2o6Q3Ey5ZLEYcQ P96EZQ5 cFF8PI37PT34N5KsXwpliRI ibGU+PHRhYmxlIHdpZHRoPS dcTPLlDpTllUkuHE2yIc9vS GVyLWNv uCpuoFWrViEir1itOPTkJSo uZJ9rwZdaL8LxzDR2QUPtb6 u1Zg59G58sO4OjsOS+PGNvb TO0iZD4 uD0gGvDjXqS0OXapV335SqF guFIbJbzer4tqx8jniNa2Np Q7TSUyvpLymGjqRYQ2j7EqB j62C36u IHdpZHRoPSIxNSUiIHZhbGl tki5fpI5xHs6+WNOcoGV1oY H0wI9sXwQsPgC4GIfkK558T nRvcCIv Nqnho1ddf5mknFh2LmSmXOX jjaXbxQvoULN3o4ZzQu48R4 KkcIsqf6XvYze6hq97yBClf 6I8kEJ7 S3XjKTQxscabiNUktThaLQ3 eOYNetentPIEbnI8iEHCfJ2 f6FmNuUqU1YCqyX2IyihR8J DEwcHQg EBmcWCO4U04dt9F5XIAzKGL dKLQ7pYC5uG5qdIvxwbigeU VmdDsgdmVydGljYWwtYWxpZ 246IHRv rKhyJEAhsH9cCUAjpMIrbBh xIU5qSPHkcwowMpXQDUFuMY VLC8SUAZFACL32LE13yCNkj 2C3lZC6 D7NmTCDuogtlgeygkLA9VDE dFUPvaY22lRYmCFlkBt8fv2 Q4a405XBKtOVClpT95Gb9ph DogMTBw qHDDhC8polonz8lagtflMfO jDGDqWOf3ETn5ZZRrsUwsWm VqZTR0NuR2TAS9iBWbgZ6nh Glnbjog vA1vTeq+NTWtZwUsBGv3Tkn vdGQ+YUHpWRZ0kBhxIMwzYJ HfmT4mAQToZ4t7ByAmUfA2U GvmM9Wf OOKxzxsnJn04qE4xTdJdCqD 0NCtlU0EqyiD0EQNmtYBoVI zcREU3X10bc8C3WZSjVWNoN RK3aVA0 sT9pyFoddoihcVCanLfxcdY utZogRQdhXHghP184ICYxbP kiRjn5KHopIEUeKD21YW26k RGgh7W5 sSV0X1PoWMRnulwehcdhyCO 4KOQhTHQezP64gDDzWQqhSr 4nq3U5f317FHQtRGJaxQ50U u9rzPom BOEamEMCkG5zwhkhx8zgoxb pPvNmDSOwIJl1WBe7ANKgdD mvCkFkXLM1BzG9CPW1hOGsh O0xrCgn fzyaxJ7pUgx+TWFsZTwvdGQ +UEYwNRP9oYofNTumDQHrmU 2gPBDkP2g0PiPjYfZ1CFexZ 3BhZGRp nlnkDk46nP9wXrIzDxR2BSs xG1RvawE7QPAteNAiCLgyHP D1E08ck8B4DQYxQKRjSBR2l EO2pQ5q bGlnbjogbGVmdDsgdmVydGl kNEqwQWrrH920ZRWqiUhiGb 76eEZpvSxfyeA0Z0WjBtvyn HI+PC90 MOLwMV88bIMfvAYob1wdnCe 9MkUoYSSyJUG6lLjjKBwyf9 UrSEKgI40zrYHuq4D4FXBig GxhcHNl TuKxvQN3cG5uQZjvtgkcm5d ekljvZityc4rfjt16nQ57I5 9sIHdpZHRoPSIzMCUiIHZhb Qzimc9j tF0kIo2+KTOtxUK8uWM6kO3 eJaWaWqQ5HQwzW720IvZupN SpHdtcx7jys1gezVb9SfNkP SIgdmFs lHdxBXU0d2ZuNo32W00fAQj pZHRoPSIyMCUiIHZhbGlnbj 1fyX0rVk6+XO2kl5khnj33t D48dHI+ HUWcDSM8mFnaFGqrSQTduM5 vBBatLbS1HJZiLiDmqX46pR BhBIahAj3cgPqerGspKI9tU TBpbjtm z554LeCui1ujFWIwxLQzTXu nJRZ9C56zm0H0OBOhKAIgKN Y5eVQ4xN4dgJvruavluBIza DsgdmVy bBjiXXtzNVctZ607KMFdmOe fTcOieQXvR6kufwLSAV2hUd wvdGQ+RJVzJAH2jDhzKRwbZ HPbgW0p KGLzM2x6HpFaWqZ7HBeoT4P onjR5RFXdeVSqQDBgoMMRxT 5zxnawb5ysbiwjExHgSVFoF Tn4ZEb2 EIIoxMreGlOyLVI5ZrI7ALT 3mDVddR6kpMubdlaxaH6tTr c+RklOOjwvdGQ+UKCyUXJ7r WxlPSdw KANrmL7bPDCkH7b6MsVsThK 0GYweM4BdbdI6DDJdeQShIT FriMWQrW7wfqhxq4cnlcpxW zAwMDAw ISf5VDw0LDHbeKklVvZbCTO 6WwS1TSW6tIFicD9emYryqh joeH4hAxs+TVJOOjwvdGQ+P HRkIHN0 rXztMYyhYETylN8nDXGkV0v 3HvMfSlL9HDplN5LnhpN6MP VinUDyKFYveHZEvE9mtzguz 2xvcjog SjZqCRAbXXj3PMz1QYVgeSh gLnFdEYU2StQ7EIL1lFZryS 4oaIyjntmtsN8vZzb+UGF5Z QI0LJ71 JX28P9GuJjnxtUPvuBC+PHR hYmxlIHdpZHRoPScxMDAlJy YbyTtnOW8qKc0aVQDbJEAez GxhcHNl OiBj (more content not included)... [facility] CT Chest w/ Contraston 01-08 CT Chest w/ Contrast Exam Date/Time: 01/07/2023 10:55 EST Reason for Exam: R07.89 R07.9 Report IMPRESSION: STABLE CHEST CT FROM 05/18/2022, DESCRIBED. NO FINDINGS OF CONCERN IDENTIFIED WITHIN THE ANTERIOR RIGHT UPPER CHEST WALL, AT THE AREA OF CLINICAL CONCERN. EXAM: CT Chest w/ Contrast DATE: 01/07/2023 CLINICAL HISTORY: R07.89 R07.9. Persistent right chest wall pain for 2 years. COMPARISON: 05/18/2022. TECHNIQUE: Spiral imaging was obtained of the chest after the uneventful infusion of approximately 100 mL of Isovue [address] scans at this facility use dose modulation, iterative reconstruction, and/or weight based dosing when appropriate to reduce radiation dose to as low as reasonably achievable. FINDINGS: A radiodense marker has been placed at an area of clinical concern between the anterior right second and third ribs approximately 5 cm to the right of the midline, for which there are no abnormalities or significant changes from 05/18/2022 identified. 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 An approximately 4 mm noncalcified nodule within the anterolateral aspect of the right middle lobe appears unchanged (image 96 - axial series 3); as does mild scarring of the mid to lower lung alvarado, predominantly of the right lower lobe. There are no developing pulmonary nodules, infiltrates, lymphadenopathy, pleural or pericardial effusions, worrisome bone destruction, fractures, organized fluid collections, inflammatory changes, or other significant changes identified. Orthopedic anchors within the right humeral head, mild to moderate degenerative changes of the thoracic spine, and mild atherosclerotic plaquing of a mildly ectatic thoracic aorta appear unchanged. The heart is not enlarged. The limited included imaging of the upper abdomen is noncontributory. Report Ordering Provider: Onel Isaacs FINAL REPORT Dictated: 01/08/2023 1:14 pm YouskDmitry donaldson MD Signed (Electronic Signature): 01/08/2023 1:14 pm Signed by: Dmitry Doan MD Transcribed by: VALARIE Technologist: TATIANA Technical Comments GFR (mL/min/1/73m2) 59 Contrast: Isovue 300 Contrast amount in ml's: [address] [facility] CHEMISTRYOrdered By: SYSTEM SYSTEM on 01-07-2023 Creatinine [Mass/Vol] 1.2 mg/dL Normal 0.5 - 1.3 mg/dL [facility] Remisol GFR/1.73 sq M.predicted among blacks MDRD (S/P/Bld) [Vol rate/Area] mL/min/1.73 m2 Normal >=59mL/min/1. 73 m2 [facility] Chem S GFR/1.73 sq M.predicted among non-blacks MDRD (S/P/Bld) [Vol rate/Area] 59 mL/min/1.73 m2 Normal >=59mL/min/1. 73 m2 [facility] Chem S Consent for Treatmenton 12-26 Consent for Treatment [id number]#1.00C D:[address] [facility] Creatinineon 01-07-2023 Creatinine [Mass/Vol] 1.2 mg/dL Normal 0.5-1.3 [facility] Comment on above: Performed By: #### 1 [id number] ####[facility] [id number] [place] [address] eGFRon 01-07-2023 GFR/1.73 sq M.predicted among blacks MDRD (S/P/Bld) [Vol rate/Area] mL/min/{1.73_m2} Normal >=59 [facility] Comment on above: Order Comment: Order added by Discern Expert. Result Comment: eGFR is race adjusted. AA=. Performed By: #### 1 [id number] ####[facility] [id number] [place] [address] GFR/1.73 sq M.predicted among non-blacks MDRD (S/P/Bld) [Vol rate/Area] 59 mL/min/1.73 m2 Normal >=59 [facility] Comment on above: Order Comment: Order added by Discern Expert. Result Comment: [employer] shanel kidney disease could be indicated at eGFR's of less than 60 mL/min/1.73m2. Kidney failure is indicated at less than 15 mL/min/1.73m2. Performed By: #### [id number] ####[facility] [id number] [place] [address] Physician Orderon 01-04-2023 Physician Order [id number]#1.00C D:[address] [facility] Physician Orderon 12-31-2022 Physician Order [id number]#1.00C D:[address] [facility] CHEMISTRYOrdered By: SYSTEM SYSTEM on 05-18-2022 Creatinine [Mass/Vol] 1.2 mg/dL Normal 0.5 - 1.3 mg/dL [facility] Remisol GFR/1.73 sq M.predicted among blacks MDRD (S/P/Bld) [Vol rate/Area] mL/min/1.73 m2 Normal >=59mL/min/1. 73 m2 [facility] Chem S GFR/1.73 sq M.predicted among non-blacks MDRD (S/P/Bld) [Vol rate/Area] 59 mL/min/1.73 m2 Normal >=59mL/min/1. 73 m2 [facility] Chem S NM CARDIAC PERF STRESS/EXERC ISEon 04-11-2022 [facility] Large Joint Arthro/Inj: R sh oulder joint [facility] Vital Signs Date Time Vital Sign Value Performing Clinician Facility 02-11-2024 09:35-0400 Body weight 89.5 kg Abeba Keen APRN.CNP Work Phone: [facility] 02-11-2024 09:35-0400 Diastolic blood pressure 80 mm[Hg] Abeba Keen APRN.CNP Work Phone: [facility] 02-11-2024 09:35-0400 Heart rate 60 /min Abeba Keen APRN.INSTRUMENT TECHNICIAN HELPER Work Phone: [facility] 02-11-2024 09:35-0400 Systolic blood pressure 128 mm[Hg] Abeba Cuco CARDIOLOGY TECHNICIAN.INSTRUMENT TECHNICIAN HELPER Work Phone: [facility] 08-13-2023 11:50-0400 Diastolic blood pressure 85 mm[Hg] Abeba [facility] CARDIOLOGY TECHNICIAN.INSTRUMENT TECHNICIAN HELPER Work Phone: [facility] 08-13-2023 11:50-0400 Systolic blood pressure 132 mm[Hg] Abeba Cuco CARDIOLOGY TECHNICIAN.INSTRUMENT TECHNICIAN HELPER Work Phone: [facility] 08-13-2023 11:39-0400 Body weight 84.87 kg Abeba Cuco CARDIOLOGY TECHNICIAN.INSTRUMENT TECHNICIAN HELPER Work Phone: [facility] 08-13-2023 11:39-0400 Heart rate 60 /min Abeba [facility] CARDIOLOGY TECHNICIAN.INSTRUMENT TECHNICIAN HELPER Work Phone: [facility] 07-08-2023 10:21-0400 Body height 177.8 cm Rjei Weems MD Work Phone[facility] [facility] 10:21-0400 Body weight 82.1 kg Reji Weems MD Work Phone: [facility] 02-08-2023 10:54-0400 Body height 177.8 cm [facility] Work Phone: [facility] 02-08-2023 10:54-0400 Body weight 83.46 kg [facility] Work Phone: [facility] 02-08-2023 10:54-0400 Diastolic blood pressure 84 mm[Hg] [facility] Work Phone: [facility] 02-08-2023 10:54-0400 Heart rate 66 /min [facility] Work Phone: [facility] 02-08-2023 10:54-0400 Systolic blood pressure 132 mm[Hg] [facility] Work Phone: [facility] 02-06-2023 16:08-0400 Body height 177.8 cm Juan F Portillo MD Work Phone: [facility] 02-06-2023 16:08-0400 Body weight 83.46 kg Juan F Portillo MD Work Phone: [facility] 02-06-2023 16:08-0400 Diastolic blood pressure 84 mm[Hg] Juan F Portillo MD Work Phone: [facility] 02-06-2023 16:08-0400 Heart rate 70 /min Juan F Portillo MD Work Phone: [facility] 02-06-2023 16:08-0400 Systolic blood pressure 123 mm[Hg] Juan F Portillo MD Work Phone: [facility] 01-11-2023 13:33-0500 Diastolic blood pressure 64 mm[Hg] Abeba Cuco CARDIOLOGY TECHNICIAN.INSTRUMENT TECHNICIAN HELPER Work Phone: [facility] 01-11-2023 13:33-0500 Systolic blood pressure 110 mm[Hg] Abeba Cuco CARDIOLOGY TECHNICIAN.INSTRUMENT TECHNICIAN HELPER Work Phone: [facility] 01-11-2023 13:23-0500 Body weight 84.01 kg Abeba [facility] CARDIOLOGY TECHNICIAN.INSTRUMENT TECHNICIAN HELPER Work Phone: [facility] 01-11-2023 13:23-0500 Heart rate 78 /min Abeba [facility] CARDIOLOGY TECHNICIAN.INSTRUMENT TECHNICIAN HELPER Work Phone: [facility] 08-15-2022 11:02-0400 Body height 177.8 cm Juan F Portillo MD Work Phone: [facility] 08-15-2022 11:02-0400 Body weight 82.56 kg Juan F Portillo MD Work Phone: [facility] 08-15-2022 11:02-0400 Diastolic blood pressure 72 mm[Hg] Juan F Portillo MD Work Phone: [facility] 08-15-2022 11:02-0400 Heart rate 65 /min Juan F Portillo MD Work Phone: [facility] 08-15-2022 11:02-0400 Systolic blood pressure 114 mm[Hg] Juan F Portillo MD Work Phone: [facility] 02-19-2022 11:25-0400 Diastolic blood pressure 92 mm[Hg] Tyler SALAM [facility] 02-19-2022 11:25-0400 Heart rate 47 /min Tyler SALAM [facility] 02-19-2022 11:25-0400 Respiratory rate 18 /min Tyler SALAM [facility] 02-19-2022 11:25-0400 SaO2% (BldA) [Mass fraction] 99 % Tyler SALAM [facility] 02-19-2022 11:25-0400 Systolic blood pressure 128 mm[Hg] Tyler SALAM [facility] 02-19-2022 11:15-0400 Diastolic blood pressure 92 mm[Hg] Tyler SALAM [facility] 02-19-2022 11:15-0400 Heart rate 46 /min Tyler SALAM [facility] 02-19-2022 11:15-0400 Respiratory rate 15 /min Tyler SALAM [facility] 02-19-2022 11:15-0400 SaO2% (BldA) [Mass fraction] 98 % Tyler SALAM [facility] 02-19-2022 11:15-0400 Systolic blood pressure 128 mm[Hg] Tyler SALAM [facility] 02-19-2022 11:00-0400 Diastolic blood pressure 78 mm[Hg] Tyler SALAM [facility] 02-19-2022 11:00-0400 Heart rate 51 /min Tyleraleksandar ARNOLDAM [facility] 02-19-2022 11:00-0400 Respiratory rate 20 /min Tyler SALAM [facility] 02-19-2022 11:00-0400 SaO2% (BldA) [Mass fraction] 97 % Tyler SALAM [facility] 02-19-2022 11:00-0400 Systolic blood pressure 122 mm[Hg] Tyler SALAM [facility] 02-19-2022 10:46-0400 Body temperature 97.16 [degF] Tyler SALAM [facility] 02-19-2022 10:14-0400 Blood Pressure Location Tyler SALAM [facility] 02-19-2022 10:14-0400 Body temperature 98.06 [degF] [facility] Encounters Encounter Date Encounter Type Care Provider Facility Start: 05-22-2024 Telephone encounter Abeba reynolds APRN.CNP Work Phone: [facility] Comment on above: Patient Question Start: 02-11-2024 End: 02-11-2024 ambulatory [facility] Facility:[facility] Start: 02-11-2024 End: 02-11-2024 Patient encounter procedure Abeba Keen APRN.INSTRUMENT TECHNICIAN HELPER Work Phone: [facility] Comment on above: Hyperlipidemia, unsp ecified hyperlipidemia type (Primary Dx); Essential hypertension; S/P AVR Start: 02-05-2024 End: 02-05-2024 ambulatory [facility] Facility:[facility] Start: 11-11-2023 Refill Juan F Portillo MD Work Phone: [facility] Comment on above: Refill Request Start: 08-19-2023 Refill Juan F Portillo MD Work Phone: [facility] Comment on above: Refill Request Start: 08-13-2023 End: 08-13-2023 ambulatory ABEBA KEEN Facility:[facility] Start: 08-13-2023 End: 08-13-2023 Patient encounter procedure Abeba Keen CARDIOLOGY TECHNICIAN.INSTRUMENT TECHNICIAN HELPER Work Phone: [facility] Comment on above: Hyperlipidemia, unsp ecified hyperlipidemia type (Primary Dx); Essential hypertension; S/P AVR Start: 07-24-2023 End: 07-24-2023 ambulatory [facility] Facility:[facility] Start: 07-15-2023 Refill Joyce apple CARDIOLOGY TECHNICIAN.INSTRUMENT TECHNICIAN HELPER Work Phone: [facility] Comment on above: Refill Request Start: 07-08-2023 End: 07-08-2023 [facility] Facility:[facility] Start: 07-08-2023 End: 07-08-2023 Patient encounter procedure Reji Weems MD Work Phone: Orthopaedics Comment on above: S/P right rotator cu ff repair (Primary Dx); Traumatic complete tear of right rotator cuff, initial encounter Start: 06-04-2023 Telephone encounter Juan F emerson MD Work Phone: [facility] Comment on above: Medication Question Start: 03-28-2023 End: 03-29-2023 ambulatory Onel benny Facility:[facility] Start: 03-28-2023 End: 03-28-2023 Patient encounter procedure Onel Hoy [facility] Start: 03-13-2023 End: 05-25-2023 ambulatory Onel y Facility:[facility] Start: 03-12-2023 Telephone encounter Juan F emerson MD Work Phone: [facility] Comment on above: Patient Question (An y additional testing?) Start: 03-01-2023 End: 03-02-2023 ambulatory [facility] Facility: [place] Start: 02-08-2023 End: 02-08-2023 Patient encounter procedure Hannah Taylor APRN.INSTRUMENT TECHNICIAN HELPER Work Phone: [facility] Comment on above: S/P AVR (Primary Dx) ; Exercise counseling; Chest discomfort; ELLIS (dyspnea on exertion); Essential (primary) hypertension ; Hyperlipidemia, unspecified hyperlipidemia type; Paroxysmal atrial fibrillation (HCC); S/P ascending aortic replacement; Lightheadedness; Physical deconditioning; Need for home exercise program; Difficulty managing exercise regime; Cardiac risk counseling Start: 02-07-2023 Orders Only Juan F Portillo MD Work Phone: [facility] Comment on above: Elevated serum creat inine (Primary Dx) Start: 02-06-2023 End: 02-06-2023 Patient encounter procedure Juan F Portillo MD Work Phone: [facility] Comment on above: Physical decondition ing (Primary Dx); Elevated serum creatinine; S/P AVR Start: 01-11-2023 End: 01-11-2023 Patient encounter procedure Abeba Keen APRN.INSTRUMENT TECHNICIAN HELPER Work Phone: [facility] Comment on above: S/P AVR (Primary Dx) ; Essential hypertension; Chest discomfort Start: 01-11-2023 End: 01-11-2023 Subsequent hospital visit by physician Card Injection Molecular Imaging Comment on above: Chest pain, unspecif ied type [R07.9] Start: 01-08-2023 Orders Only Juan F Portillo MD Work Phone: Cardiology Comment on above: Chest pain, unspecif ied type (Primary Dx) Start: 01-07-2023 End: 01-08-2023 Orders Only Todd Nunn MD Work Phone: [facility] Comment on above: Chest pain, unspecif ied type (Primary Dx) Start: 01-07-2023 End: 01-07-2023 Patient encounter procedure Onel Isaacs [facility] Start: 12-28-2022 Telephone encounter [facility] Thorac ic Surg Consult [facility] Comment on above: Consult (Self referr ing); Received Outside Medical Records Start: 12-27-2022 Telephone encounter Onel Isaacs MD Work Phone: NOC Comment on above: Appointment Start: 11-12-2022 Refill Juan F Portillo MD Work Phone: [facility] Comment on above: Refill Request Start: 10-11-2022 Refill Clarisse Gee CARDIOLOGY TECHNICIAN .INSTRUMENT TECHNICIAN HELPER Work Phone: [facility] Comment on above: Refill Request Start: 08-15-2022 End: 08-15-2022 Patient encounter procedure Juan F Portillo MD Work Phone: [facility] Comment on above: S/P AVR (Primary Dx) ; Essential (primary) hypertension Start: 08-10-2022 Telephone encounter Juan F emerson MD Work Phone: [facility] Comment on above: Lab Orders (Get labs done?) Start: 06-08-2022 ambulatory Cherise Pasha Saldivar [facility] ty:[facility] Start: 05-18-2022 End: 05-18-2022 Patient encounter procedure Onel Isaacs [facility] Start: 04-11-2022 End: 04-11-2022 Subsequent hospital visit by physician Card Injection Molecular Imaging Comment on above: Precordial pain [R07 .2] Start: 03-27-2022 Orders Only Todd Donald i, MD Work Phone: Cardiology Comment on above: Precordial pain (Christin iban Dx) Start: 03-20-2022 Refill Hannah obrien CARDIOLOGY TECHNICIAN.INSTRUMENT TECHNICIAN HELPER Work Phone: [facility] Comment on above: Refill Request Start: 02-19-2022 End: 02-19-2022 Patient encounter procedure Jayson ADDISON [facility] Start: 08-11-2018 End: 08-15-2018 Patient encounter status Abeba Keen CARDIOLOGY TECHNICIAN.INSTRUMENT TECHNICIAN HELPER Work Phone: [facility] Work Phone: Procedures Date Procedure Procedure Detail Performing Clinician Start: 07-08-2023 History of repair of musculotendinous cuff of shoulder S/P right rotator cuff repair Reji Weems MD Work Phone: Start: 07-08-2023 Arthrocentesis aspir &/inj major jt/bursa w/o us Reji Weems MD Work Phone: Start: 02-08-2023 Cv strs tst xers&/or rx cont ecg trcg only Hannah Taylor APRN.INSTRUMENT TECHNICIAN HELPER Work Phone: Start: 01-11-2023 Myocardial spect mul tiple studies Todd Nunn MD Work Phone: Start: 04-11-2022 Myocardial spect mul tiple studies Todd Nunn MD Work Phone: Start: 02-19-2022 Colonoscopy Jayson Aldridge Comment on above: 2 colon polyps, dive rticulosis t/o colon, moderate IH Start: 01-09-2017 Adult depression scr eening assessment Hannah Taylor APRN.INSTRUMENT TECHNICIAN HELPER Work Phone: Start: 11-25-2014 Colonoscopy Tyler KARY M Start: 11-25-2004 thumb arthritis, right Tyler SALAM Start: 11-25-1957 Tonsillectomy Tyler CATALINA AM Aortic valve structu re (body structure) Onel Hoy Cataract extraction and insertion of intraocular lens Tyler SALAM Comment on above: BILATERAL cholecystecomy/umbil ical hernia surgery 3 Tyler SALAM Comment on above: 2005 left rotator cuff re pair -01-08 Tyler SALAM right hand/wrist surgery [facility] er SALAM right knee surgery Tyler CATALINA AM right rotator cuff repair Owen ADDISON sinus surgery Jayson ADDISON Plan of Treatment Date Care Activity Detail Author Start: 08-12-2030 Urine microalbumin profile [facility] Start: 08-10-2027 LIPID SCREEN LIPID SCREEN [facility] Start: 02-04-2027 Diabetes Screening Diabetes Screenin g [facility] Start: 05-24-2026 LIPID SCREEN LIPID SCREEN [facility] Start: 04-05-2026 DIABETES SCREEN DIABETES SCREEN [facility] Start: 04-05-2026 Diabetes Screening Diabetes Screenin g [facility] Start: 02-06-2026 DIABETES SCREEN DIABETES SCREEN [facility] Start: 08-10-2025 DIABETES SCREEN DIABETES SCREEN [facility] Start: 08-19-2024 End: 08-19-2024 Patient encounter procedure 08/19/2024 11:00 AM EDT Office Visit [facility] [address] [id number] Abeba Keen, ISIDRO.INSTRUMENT TECHNICIAN HELPER [address] [place] [address] 6 month f/u per pt [facility] Comment on above: 6 month f/u per pt Start: 07-26-2024 Influenza vaccination Influenza Vacc ine (#1) [facility] Start: 05-24-2024 DIABETES SCREEN DIABETES SCREEN [facility] Start: 01-24-2024 End: 03-25-2024 Alanine aminotransferase [Enzymatic activity/volume] in Serum or Plasma ALT/SGPT Lab Routine Hyperlipidemia, unspecified hyperlipidemia type Essential hypertension Expected: 01/24/2024, Expires: 03/25/2024 [facility] Work Phone: Comment on above: Expected: 01/24/2024 , Expires: 03/25/2024 Start: 01-24-2024 End: 03-25-2024 Basic metabolic 2000 panel - Serum or Plasma BASIC METABOLIC PNL Lab Routine Hyperlipidemia, unspecified hyperlipidemia type Essential hypertension Expected: 01/24/2024, Expires: 03/25/2024 [facility] Work Phone: Comment on above: Expected: 01/24/2024 , Expires: 03/25/2024 Start: 01-24-2024 End: 03-25-2024 Lipid 1996 panel - Serum or Plasma LIPID PANEL BASIC Lab Routine Hyperlipidemia, unspecified hyperlipidemia type Essential hypertension Expected: 01/24/2024, Expires: 03/25/2024 [facility] Work Phone: Comment on above: Expected: 01/24/2024 , Expires: 03/25/2024 Start: 01-11-2024 BP CONTROLLED (<130/80) BP CONTROLLE D (<130/80) [facility] Start: 01-04-2024 Covid-19 Vaccine () Covid-19 Vaccine () [facility] Start: 11-25-2023 Advance Directive Discussion Advance Directive Discussion [facility] Start: 11-25-2023 Behavioral Health Screening Behavioral Health Screening [facility] Start: 11-25-2023 Depression Assessment Depression Ass essment [facility] Start: 08-15-2023 BP CONTROLLED (<130/80) BP CONTROLLE D (<130/80) [facility] Start: 07-26-2023 Covid-19 Vaccine () Covid-19 Vaccine () [facility] Start: 07-26-2023 Influenza vaccination [facility] Start: 03-13-2023 End: 05-13-2023 Comprehensive metabolic 2000 panel - Serum or Plasma COMP METABOLIC PANEL Lab Routine Hyperlipidemia, unspecified hyperlipidemia type Expected: 03/13/2023, Expires: 05/13/2023 [facility] Work Phone: Comment on above: Expected: 03/13/2023 , Expires: 05/13/2023 Start: 03-13-2023 End: 05-13-2023 Lipid 1996 panel - Serum or Plasma LIPID PANEL BASIC Lab Routine Hyperlipidemia, unspecified hyperlipidemia type Expected: 03/13/2023, Expires: 05/13/2023 [facility] Work Phone: Comment on above: Expected: 03/13/2023 , Expires: 05/13/2023 Start: 02-21-2023 End: 04-23-2023 Basic metabolic 2000 panel - Serum or Plasma BASIC METABOLIC PNL Lab Routine Elevated serum creatinine Expected: 02/21/2023, Expires: 04/23/2023 [facility] Work Phone: Comment on above: Expected: 02/21/2023 , Expires: 04/23/2023 Start: 02-12-2023 End: 04-14-2023 Comprehensive metabolic 2000 panel - Serum or Plasma COMP METABOLIC PANEL Lab Routine S/P AVR Expected: 02/12/2023, Expires: 04/14/2023 [facility] Work Phone: Comment on above: Expected: 02/12/2023 , Expires: 04/14/2023 Start: 02-12-2023 End: 04-14-2023 Lipid 1996 panel - Serum or Plasma LIPID PANEL BASIC Lab Routine S/P AVR Essential (primary) hypertension Expected: 02/12/2023, Expires: 04/14/2023 [facility] Work Phone: Comment on above: Expected: 02/12/2023 , Expires: 04/14/2023 Start: 02-05-2023 BP CONTROLLED (<130/80) BP CONTROLLE D (<130/80) [facility] Start: 11-25-2022 ADVANCE DIRECTIVE DISCUSSION ADVANCE DIRECTIVE DISCUSSION [facility] Start: 11-25-2022 DEPRESSION ASSESSMENT DEPRESSION ASS ESSMENT [facility] Start: 07-26-2022 Influenza vaccination INFLUENZA (#1) [facility] Start: 05-03-2022 COVID-19 VACCINE (5 - Booster for Pfizer series) COVID-19 VACCINE (5 - Booster for Pfizer series) [facility] Start: 04-11-2022 End: 04-26-2023 NM CARDIAC PERF STRESS/EXERCISE NM CARDIAC PERF STRESS/EXERCISE Radiology Routine Precordial pain Expected: 04/11/2022, Expires: 04/26/2023 [facility] Work Phone: Comment on above: Expected: 04/11/2022 , Expires: 04/26/2023 Start: 11-25-2021 ADVANCE DIRECTIVE DISCUSSION ADVANCE DIRECTIVE DISCUSSION [facility] Start: 11-25-2021 DEPRESSION ASSESSMENT DEPRESSION ASS ESSMENT [facility] Start: 09-16-2020 SHINGRIX VACCINE (2 of 2) ROD GRIX VACCINE (2 of 2) [facility] Start: 06-10-2018 Pneumococcal Vaccine : 65+ (2 - PPSV23 or PCV20) Pneumococcal Vaccine: 65+ (2 - PPSV23 or PCV20) [facility] Start: 06-10-2018 PNEUMOCOCCAL: 65+ (2 - PPSV23 if available, else PCV20) PNEUMOCOCCAL: 65+ (2 - PPSV23 if available, else PCV20) [facility] Start: 06-10-2018 PNEUMOCOCCAL: 65+ (2 - PPSV23 or PCV20) PNEUMOCOCCAL: 65+ (2 - PPSV23 or PCV20) [facility] Start: 01-09-2018 Adult depression scr eening assessment DEPRESSION SCREENING [facility] Start: 2011 PNEUMOVAX AGE 65 AND OVER WITH 5YR LOOKBACK (#1) PNEUMOVAX AGE 65 AND OVER WITH 5YR LOOKBACK (#1) [facility] Start: 1991 COLOGUARD (FIT-DNA) COLOGUARD (FIT-D NA) [facility] Start: 1991 Colonoscopy COLONOSCOPY [facility] Start: 1991 COLORECTAL CANCER SCREENING COLORECTAL CANCER SCREENING [facility] Start: [address] COLONOGRAPHY [facility] Start: 1991 FECAL OCCULT BLOOD FECAL OCCULT BLOO D [facility] Start: 1991 SIGMOIDOSCOPY SIGMOIDOSCOPY [facility] Start: 1964 ANNUAL PCP TEAM PLASTIC TECHNICIAN SHANEL DISEASE VISIT ANNUAL PCP TEAM CHRONIC DISEASE VISIT [facility] Start: 1964 BP CONTROLLED (<130/80) BP CONTROLLE D (<130/80) [facility] Start: 1964 HEPATITIS C SCREENING HEPATITIS C [facility] Start: 1964 Hepatitis C screening Hepatitis C [facility] End: 01-08-2024 ECG COMPLETE ECG COMPLETE ECG Routine Chest pain, unspecified type 1 Occurrences starting 01/08/2023 until 01/08/2024 [facility] Work Phone: Comment on above: 1 Occurrences starti ng 01/08/2023 until 01/08/2024 End: 08-15-2023 Echocardiography ECHO Cardiology Routine S/P AVR 1 Occurrences starting 08/15/2022 until 08/15/2023 [facility] Work Phone: Comment on above: 1 Occurrences starti ng 08/15/2022 until 08/15/2023 End: 03-13-2024 Echocardiography ECHO Cardiology Routine S/P ascending aortic replacement Nonrheumatic aortic valve insufficiency 1 Occurrences starting 03/13/2023 until 03/13/2024 [facility] Work Phone: Comment on above: 1 Occurrences starti ng 03/13/2023 until 03/13/2024 NM CARDIAC PERF STRESS/PHARM NM CARDIAC PERF STRESS/PHARM Radiology Routine Chest pain, unspecified type Ordered: 01/08/2023 [facility] Work Phone: Comment on above: Ordered: 01/08/2023 [facility] Immunizations Immunization Date Immunization Notes Care Provider Fa [facility] 08-15-2023 influenza virus vacc ine, unspecified formulation Abeba Keen APRN.INSTRUMENT TECHNICIAN HELPER Work Phone: [facility] 09-11-2022 influenza virus vacc ine, unspecified formulation Onel Hoy [facility] 09-11-2022 SARS-CoV-2 (COVID-19 ) [id number] Onel Hoy [facility] 03-08-2022 SARS-CoV-2 (COVID-19 ) mRNA-1273 vaccine Onel Hoy [facility] 10-13-2021 SARS-CoV-2 (COVID-19 ) mRNA-1273 vaccine Onel Hoy [facility] 09-28-2021 influenza virus vacc ine, unspecified formulation Onel Hoy [facility] 08-25-2021 influenza virus vacc ine, unspecified formulation Jayson ADDISON [facility] 02-10-2021 SARS-CoV-2 (COVID-19 ) mRNA BNT-162b2 vax Onel Hoy [facility] 01-20-2021 SARS-CoV-2 (COVID-19 ) mRNA BNT-162b2 vax Onel Hoy [facility] Comment on above: Result Comment: 2022: [id number] 09-24-2020 pneumococcal polysaccharide vaccine, 23 valent Onel Hoy [facility] 09-21-2020 zoster vaccine recombinant Onel Hoy [facility] 08-12-2020 tetanus toxoid, redu richar diphtheria toxoid, and acellular pertussis vaccine, adsorbed Onel Hoy [facility] 08-03-2020 influenza virus vacc ine, unspecified formulation Onel Hoy [facility] 07-22-2020 zoster vaccine recombinant Onel Hoy [facility] 09-15-2019 influenza virus vacc ine, unspecified formulation Onel Hoy [facility] 07-22-2018 influenza virus vacc ine, unspecified formulation Onel Hoy [facility] 07-22-2018 influenza, high dose seasonal, preservative-free Hannah Taylor CARDIOLOGY TECHNICIAN.INSTRUMENT TECHNICIAN HELPER Work Phone: [facility] Work Phone: 10-11-2017 influenza virus vacc ine, unspecified formulation Onel Hoy [facility] 10-11-2017 Seasonal trivalent influenza vaccine, adjuvanted, preservative free Hannah Taylor CARDIOLOGY TECHNICIAN.INSTRUMENT TECHNICIAN HELPER Work Phone: [facility] Work Phone: 06-10-2017 pneumococcal conjuga te vaccine, 13 valent Hannah Taylor CARDIOLOGY TECHNICIAN.INSTRUMENT TECHNICIAN HELPER Work Phone: [facility] Work Phone: 12-05-2015 influenza virus vacc ine, unspecified formulation Onel Isaacs [facility] 12-05-2015 influenza, seasonal, injectable, preservative free Hannah Taylor CARDIOLOGY TECHNICIAN.INSTRUMENT TECHNICIAN HELPER Work Phone: [facility] Work Phone: 10-05-2014 influenza virus vacc ine, unspecified formulation Onel Isaacs [facility] 10-05-2014 influenza, injectabl e, quadrivalent, contains preservative Hannah Taylor CARDIOLOGY TECHNICIAN.INSTRUMENT TECHNICIAN HELPER Work Phone: [facility] Work Phone: 08-28-2005 tetanus toxoid, adsorbed Chr istina Taylor CARDIOLOGY TECHNICIAN.INSTRUMENT TECHNICIAN HELPER Work Phone: [facility] Work Phone: Payers Date Payer Category Payer Private Health Insurance HUMANA HUMANA MEDICARE SUPPLEMENT [id number] 2015-Present [phone] [address] [address] [place] [address] Indemnity [id number] 2015 Private Health Insurance HUMANA HUMANA MEDICARE SUPPLEMENT [id number] 2015-Present [phone] [address] [address] [place] [address] Indemnity [id number] 2015 Private Health Insurance [id number] 2013 Medicare MEDICARE MEDICAR E A AND B [id number] 2013-Present [phone] [address] [address] [place] [address] Medicare [id number] 2013 Medicare MEDICARE MEDICAR E A AND B [id number] 2013-Present [phone] [place] [address] Medicare [id number] 2013 Medicare [id number] 2013 Unknown [facility] OCCUPATIONAL HEALTH LINK [id number] 07/26/2013-Present [phone] [place] [address] [address] [place] [address] MCO [id number] 1946 Unknown [id number] 1946 Unknown [id number] 1946 Unknown [id number] 1946 Unknown [id number] 1946 Unknown [id number] Social History Date Type Detail Facility Start: 02-07-2022 End: 08-15-2022 Tobacco smoking status Ex-smoker (finding) [facility] Start: 02-08-2023 End: 07-08-2023 Sex Assigned At Male [facility] End: 08-11-1990 History of tobacco use Current smoker [facility] End: 08-11-1990 History of tobacco use Cigarette Smoker [facility] Start: 10-29-2016 End: 07-08-2023 Cigarettes smoked current (pack per day) - Reported 1.5 [facility] Start: 10-29-2016 End: 08-15-2022 Tobacco use and exposure Smokeless tobacco non-user [facility] Start: 02-09-2022 End: 02-11-2024 Alcohol intake Current drinker of alcohol (finding) [facility] Start: 10-29-2016 History SDOH Alcohol Comment social [facility] Start: 1945 Sex Assigned At Male C [facility] Start: 04-01-2022 End: 08-15-2022 Exposure to SARS-CoV-2 (event) Not sure [facility] Tobacco smoking status Never [facility] Start: 08-15-2022 Tobacco Comment Quit over 30 yrs ago [facility] Start: 07-07-2019 Gender identity Identifies as male gender (finding) [facility] Start: 07-07-2019 Sexual orientation Heterosexual (jovan kaplan) [facility] Medical Equipment Procedure Code Equipment Code Equipment Original Text Equipment Identifier Dates Graft Gelweave V alsalva 30mm 15cm Cardiovascular Woven Aortic Root - [id number] Start: 08-12-2018 [place] Thk1.65mm P tfe 4x.5in Cardiovascular Sterile - [id number] Start: 08-12-2018 Valve Aort 27mm Crp-Ed Thfx - [id number] Start: 08-12-2018 Goals Date Patient Goal Desired Activity /State Personal health goal Clinical Notes 08-15-2018 to 05-26-2024 Telephone Encounter - Abeba Keen APRN.CNP - 05/26/2024 5:47 PM EDTTelephone Encounter - Abeba Keen APRN.CNP - 05/26/2024 5:47 PM EDTAbeba Keen APRN.CNP - 02/11/2024 9:18 AM EDTLaboratory Note Date & Type Note Facility 05-26-2024 Telephone encounter Note Pt phoned regarding his . Spoke with Pt and documented in her chart. Abeba Keen APRN.CNP [facility] 05-26-2024 Miscellaneous Notes Pt phoned regarding his . Spoke with Pt and documented in her chart. Abeba Keen APRN.INSTRUMENT TECHNICIAN HELPER Pt calling to speak with Abeba, he asks that she please return his call when she gets in on Saturday. Cb#:[phone] documented in this encounter [facility] 05-22-2024 Telephone encounter Note Pt calling to speak with Abeba, he asks that she please return his call when she gets in on Saturday. Cb#:[phone] [facility] 02-11-2024 Note HNO ID: [id number] Author: ABEBA KEEN APRN.CNP Service: ? Author Type: Nurse Practitioner Type: Progress Notes Filed: 02/25/2024 12:19 Note Text: [facility] [place] [facility] Department of Cardiovascular Medicine SECTION OF PREVENTIVE CARDIOLOGY 02/11/2024 Frankiedominique Pak Jose C CURRENT MEDS: Current Outpatient Medications Medication Sig irbesartan (AVAPRO) 300 mg tablet Take 1 tablet by mouth daily at bedtime. hydroCHLOROthiazide 25 mg tablet Take 1 tablet by mouth once daily. metoprolol succinate ER (TOPROL XL) 25 mg 24 hr tablet take 1 tablet by mouth every evening iron bisgly,ps-FA-B-C#12-succ 65 mg-65 mg -1,000 mcg (24) tab Take 65 mg by mouth once weekly aspirin, enteric coated (ASPIRIN, ENTERIC COATED) 81 mg EC tablet Take 81 mg by mouth once daily. OTC PRODUCT once daily. OTC Force Factor take 3 tablet once per day st-ke-Y-theanine-herb no.310 (AIRBORNE EVERYDAY STRESS AWAY) 1,000 mg-200 mg-360 mg pwpk Take by mouth. acetaminophen (TYLENOL) 325 mg tablet Take 650 mg by mouth as needed for pain. sodium chloride (SALINE MIST NASAL) Use in the nose. azithromycin (ZITHROMAX) 500 mg tablet Take 1 tablet by mouth once daily. Take one tablet 60 minutes prior to procedure. multivitamin tablet Take 1 tablet by mouth once daily. (Patient taking differently: Take by mouth twice daily. Pt takes 1 capsule by mouth twice per day) olopatadine (PATADAY TWICE DAILY RELIEF) 0.1 % ophthalmic solution Use 1 Drop in both eyes twice daily. calcium citrate/vitamin D3 (CALCIUM CITRATE + ORAL) Take by mouth twice daily. Pt takes 2 capsule by mouth twice per day. tolnaftate (FORMULA 3 TOPICAL) Apply 1 application to affected area once daily. cyanocobalamin, vitamin B-12, (VITAMIN B-12 SUBLINGUAL) Dissolve 1 Dose under the tongue once daily. OTC PRODUCT 0.9% NaCl Sinus Rinse Cholecalciferol, Vitamin D3, 50 mcg (2,000 unit) cap Take 1,000 Units by mouth twice daily. ubidecarenone/vitamin E mixed (COQ10 SG 100 ORAL) Take 1 capsule by mouth once daily. psyllium husk, bulk, 100 % powd 1 teaspoonful twice daily. Current Facility-Administered Medications Medication Dose Route Frequency perflutren lipid microspheres 1.3 mL in NaCl (PF) 0.9% 10 mL injection (DEFINITY) INTRAVENOUS DIRECTED PRN sodium chloride 0.9 % (flush) 10 mL (BD POSIFLUSH) 10 mL INTRAVENOUS DIRECTED PRN ALLERGIES: ALLERGIES Allergen Reactions Lisinopril Cough CHIEF COMPLAINT: Wally Barrow is a 78 year old White male seen today. 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 Briggs, and postoperative atrial fibrillation. Patient presents for ongoing management of cardiovascular risk factors. Since July, Pt is noticing continued stable lightheadedness. He is also not feeling motivated to get started with his daily activities. Chest pain: Yes : Pain Scale: 1-10 scale 7/10, Duration: seconds, Frequency: at random, improved since last visit and Character: sharp Noticeable with certain movements, ex. reaching to tie his shoes. Claudication: No SOB: yes, a little with climbing stairs. Pt attributes to weight gain. Orthopnea: No PND: No LE: No Lightheadedness/dizziness: No Palpitations:No Bleeding/bruising: No CARDIAC RISK FACTORS: History question Answer Diagnosis Date Comment Hypertension : Hypertension 11/25/1989 Exercise: Three to five times per week Family History of CAD: Negative Averaging 4000 steps per day, likely undercounting due to pushing wheelchair. Occasional walks, weather permitting. Avg. Sleep Hours Per Night?: 8 STATIN INTOLERANCE: Adverse Effect History of Statin Intolerance:: No Current Statin Freq: None Intolerance to Ezetimibe: No Intolerance to Niacin: No Intolerance to Fibrates: No Intolerance to Bile Acid Sequestrants: No USE OF PCSK9 INHIBITORS: CARDIOVASCULAR DISEASE HISTORY: CAD EVENTS; Cath: mild <30%: Yes 06/02/18 PVD EVENTS: Acending Aorta Repair: Yes 08/12/18 CVD EVENTS: FAMILY AND SOCIAL HISTORY Lifestyle Tobacco Use: 1.5 packs/day, for 25 years. Quit 08/11/1990. Types: Cigarettes Alcohol Use: Approximately 0.6 oz/week [which includes 1 Glasses of Wine (5oz) per week] (social) PHYSICAL EXAMINATION Vital Signs and General Appearance BP 128/80 Pulse 60 Wt 89.5 kg (197 lb 4.8 oz) BMI 28.31 kg/m? BMI 28.31 kg/(m2) PHYSICAL EXAMINATION: General appearance: well appearing, alert, in no acute distress, and well-hydrated, well nourished Carotid Pulses: Left:2+, Right: 2+, Bruit: No Lungs: lungs clear to auscultation no wheezing or rhonchi Heart: regular rate and rhythm without murmur, nor (more content not included)... [facility] 02-11-2024 History of Present illness Narrative Images from the original note were not included. [facility] [place] [facility] Department of Cardiovascular Medicine SECTION OF PREVENTIVE CARDIOLOGY 02/11/2024 Wally Barrow CURRENT MEDS: Current Outpatient Medications Medication Sig irbesartan (AVAPRO) 300 mg tablet Take 1 tablet by mouth daily at bedtime. hydroCHLOROthiazide 25 mg tablet Take 1 tablet by mouth once daily. metoprolol succinate ER (TOPROL XL) 25 mg 24 hr tablet take 1 tablet by mouth every evening iron geo,ps-FA-B-C#12-succ 65 mg-65 mg -1,000 mcg (24) tab Take 65 mg by mouth once weekly aspirin, enteric coated (ASPIRIN, ENTERIC COATED) 81 mg EC tablet Take 81 mg by mouth once daily. OTC PRODUCT once daily. OTC Force Factor take 3 tablet once per day mm-mk-M-theanine-herb no.310 (AIRBORNE EVERYDAY STRESS AWAY) 1,000 mg-200 mg-360 mg pwpk Take by mouth. acetaminophen (TYLENOL) 325 mg tablet Take 650 mg by mouth as needed for pain. sodium chloride (SALINE MIST NASAL) Use in the nose. azithromycin (ZITHROMAX) 500 mg tablet Take 1 tablet by mouth once daily. Take one tablet 60 minutes prior to procedure. multivitamin tablet Take 1 tablet by mouth once daily. (Patient taking differently: Take by mouth twice daily. Pt takes 1 capsule by mouth twice per day) olopatadine (PATADAY TWICE DAILY RELIEF) 0.1 % ophthalmic solution Use 1 Drop in both eyes twice daily. calcium citrate/vitamin D3 (CALCIUM CITRATE + ORAL) Take by mouth twice daily. Pt takes 2 capsule by mouth twice per day. tolnaftate (FORMULA 3 TOPICAL) Apply 1 application to affected area once daily. cyanocobalamin, vitamin B-12, (VITAMIN B-12 SUBLINGUAL) Dissolve 1 Dose under the tongue once daily. OTC PRODUCT 0.9% NaCl Sinus Rinse Cholecalciferol, Vitamin D3, 50 mcg (2,000 unit) cap Take 1,000 Units by mouth twice daily. ubidecarenone/vitamin E mixed (COQ10 SG 100 ORAL) Take 1 capsule by mouth once daily. psyllium husk, bulk, 100 % powd 1 teaspoonful twice daily. Current Facility-Administered Medications Medication Dose Route Frequency perflutren lipid microspheres 1.3 mL in NaCl (PF) 0.9% 10 mL injection (DEFINITY) INTRAVENOUS DIRECTED PRN sodium chloride 0.9 % (flush) 10 mL (BD POSIFLUSH) 10 mL INTRAVENOUS DIRECTED PRN ALLERGIES: ALLERGIES Allergen Reactions Lisinopril Cough CHIEF COMPLAINT: Wally Barrow is a 78 year old White male seen today. 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 Briggs, and postoperative atrial fibrillation. Patient presents for ongoing management of cardiovascular risk factors. Since July, Pt is noticing continued stable lightheadedness. He is also not feeling motivated to get started with his daily activities. Chest pain: Yes : Pain Scale: 1-10 scale 7/10, Duration: seconds, Frequency: at random, improved since last visit and Character: sharp Noticeable with certain movements, ex. reaching to tie his shoes. Claudication: No SOB: yes, a little with climbing stairs. Pt attributes to weight gain. Orthopnea: No PND: No LE: No Lightheadedness/dizziness: No Palpitations:No Bleeding/bruising: No CARDIAC RISK FACTORS: History question Answer Diagnosis Date Comment Hypertension : Hypertension 11/25/1989 Exercise: Three to five times per week Family History of CAD: Negative Averaging 4000 steps per day, likely undercounting due to pushing wheelchair. Occasional walks, weather permitting. Avg. Sleep Hours Per Night?: 8 STATIN INTOLERANCE: Adverse Effect History of Statin Intolerance:: No Current Statin Freq: None Intolerance to Ezetimibe: No Intolerance to Niacin: No Intolerance to Fibrates: No Intolerance to Bile Acid Sequestrants: No USE OF PCSK9 INHIBITORS: CARDIOVASCULAR DISEASE HISTORY: CAD EVENTS; Cath: mild <30%: Yes 06/02/18 PVD EVENTS: Acending Aorta Repair: Yes 08/12/18 CVD EVENTS: FAMILY AND SOCIAL HISTORY Lifestyle Tobacco Use: 1.5 packs/day, for 25 years. Quit 08/11/1990. Types: Cigarettes Alcohol Use: Approximately 0.6 oz/week [which includes 1 Glasses of Wine (5oz) per week] (social) PHYSICAL EXAMINATION Vital Signs and General Appearance BP 128/80 Pulse 60 Wt 89.5 kg (197 lb 4.8 oz) BMI 28.31 kg/m BMI 28.31 kg/(m^2) PHYSICAL EXAMINATION: General appearance: well appearing, alert, in no acute distress, and well-hydrated, well nourished Carotid Pulses: Left:2+, Right: 2+, Bruit: No Lungs: lungs clear to auscultation no wheezing or rhonchi Heart: regular rate and rhythm without murmur, normal S1 and S2 Lower Extremities Pulses: Right Posterior Tibial: 2+, Left Posterior Tibial: 2+, Edema: No significant edema Clinical Test Results Last ECHO Result Conclusion ECHO Collected: 05/15/2023 9:30 AM (Final result) Impression: CONCLUSIONS: - Exam indication: S/p AVR - The left ventricle is normal in size. Left ventricular systolic function is normal. EF = 62 5% (2D biplane) Normal left ventricular diastolic function. - The right ventricle is normal in size. Right ventricular systolic function is normal. RV appears prominent on some views. 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 There is no aortic valve regurgitation. The peak gradient is 23 mmHg, the mean gradient is 13 mmHg and the dimensionless valve index is 0.46. Prior gradients were 20/11 mmHg. - Exam was compared with the prior echocardiographic exam performed on 08/16/2022. Similar findings. * * * Final * * * Ejection Fraction: Ejection Fraction: Normal (>50%) Lab Results: Lipoprotein (a) Date Value Ref Range Status 10/29/2016 <2 0 - 40 mg/dL Final Comment: Result rechecked. Fib Clot Date Value Ref Range Status 08/12/2018 109 (L) 200 - 400 mg/dL Final Cholesterol, Total Date Value Ref Range Status 02/05/2024 156 <200 mg/dL Final Comment: <200 mg/dL, Desirable 200-239 mg/dL, Borderline high >239 mg/dL, High Triglyceride Date Value Ref Range Status 02/05/2024 199 (H) <150 mg/dL Final Comment: <150 mg/dL, Normal 150-199 mg/dL, Borderline high 200-499 mg/dL, High >499 mg/dL, Very high HDL Cholesterol Date Value Ref Range Status 02/05/2024 37 (L) >39 mg/dL Final Comment: 40-59 mg/dL, Acceptable >59 mg/dL, High: Negative risk factor for coronary heart disease <40 mg/dL, Low: Positive risk factor for coronary heart disease LDL Cholesterol Date Value Ref Range Status 02/05/2024 79 <100 mg/dL Final Comment: <100 mg/dL, Optimal 100-129 mg/dL, Near optimal/above optimal 130-159 mg/dL, Borderline high 160-189 mg/dL, High >189 mg/dL, Very high Secondary prevention optimal LDL Cholesterol levels are recommended to be < 70 mg/dL ALT Date Value Ref Range Status 02/05/2024 22 10 - 54 U/L Final Glucose Date Value Ref Range Status 02/05/2024 96 74 - 99 mg/dL Final Comment: The [place] [employer] (ADA) provides guidance for cutoff values for fasting glucose and random glucose. The ADA defines fasting as no caloric intake for at least 8 hours. Fasting plasma glucose results between 100 to 125 mg/dL indicate increased risk for diabetes (prediabetes). Fasting plasma glucose results greater than or equal to 126 mg/dL meet the criteria for diagnosis of diabetes. In the absence of unequivocal hyperglycemia, results should be confirmed by repeat testing. In a patient with classic symptoms of hyperglycemia or hyperglycemic crisis, random plasma glucose results greater than or equal to 200 mg/dL meet the criteria for diagnosis of diabetes. Reference: Standards of Medical Care in Diabetes 2016, [place] [employer]. Diabetes Care. 2016.39(Suppl 1). TSH Date Value Ref Range Status 01/09/2017 1.830 0.400 - 5.500 uU/mL Final UltraSens C-Reactive Protein Date Value Ref Range Status 02/27/2017 0.3 <3.1 mg/L Final Comment: (NOTE) hsCRP < 1.0 mg/L, relative risk is low hsCRP 1.0-3.0 mg/L, relative risk is average hsCRP > 3.0 mg/L, relative risk is high Reference: Buchanan TA, Whit GA, Kj RW, et al. Markers of Inflammation and Cardiovascular Disease. Application to Clinical and Public Health Practice. A Statement for Healthcare Professionals From the Centers for Disease Control and Prevention and the [place] [employer]. Circulation 2003;107:499-511. Creatinine Date Value Ref Range Status 02/05/2024 1.18 0.73 - 1.22 mg/dL Final Potassium Date Value Ref Range Status 02/05/2024 3.7 3.7 - 5.1 mmol/L Final NT Pro BNP Date Value Ref Range Status 06/26/2018 528 (H) <125 pg/mL Final Patient Entered Questionnaire Scores 02/07/2023 PHQ-9 PHQ-2 Score 1 PHQ-9 Score 2 02/07/2023 ZBIGNIEW - 2/7 SCORES ZBIGNIEW-2 Score 1 ZBIGNIEW-7 Score 2 07/23/2023 02/07/2023 01/09/2017 PROMIS Global Health - (T-Scores - the mean of general population = 50. Five points is a clinically meaningful difference.) Physical T-Score 44.9 47.7 54.1 Mental T-Score 43.[address] (chest) 05/18/22 IMPRESSION: In summary, Mr. Barrow is a 78 year old male who was referred to the [facility] because of , Dyslipidemia PLAN: The results of this assessment were discussed with the patient. We have mutually agreed upon the following plans and goals: S/p AVR: s/p AVR (Bio Bentall # 27 CE valve), Aortic root and ascending aorta replacement (28 gelweave graft) on 08/12/[address] Briggs. Echo 04/2023 showed no significant change. EF 62%. 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 Will discuss timing of repeat echo with Dr. Portillo. Chest discomfort: Pt describes having seconds of sharp chest discomfort occasionally. It is noticeable with certain movements (ex. Tying shoes). A nuclear stress test 12/2022 showed no ischemia. EF 78%. PLAN: -Discomfort is atypical for a cardiac chest pain. Notify the office if symptoms progress or change. Hyperlipidemia: LDL goal <100, no CAD on cath. Latest Ref Rng 04/05/2023 02/05/2024 Cholesterol, Total <200 mg/dL 138 156 Triglyceride <150 mg/dL 159 (H) 199 (H) HDL Cholesterol >39 mg/dL 35 (L) 37 (L) Non HDL Cholesterol <130 mg/dL 103 119 Fasting Time hrs 13 12 VLDL Cholesterol <30 mg/dL 32 (H) 40 (H) TC:HDL Ratio <5.10 3.94 4.22 LDL Cholesterol <100 mg/dL 71 79 PLAN: -Continue diet control. There is limited data in starting a statin for a primary prevention patient >75 years with LDL<100 -Limit carbs to help lower TG. Anti-platelet / Anti-coagulant: On aspirin 81mg daily. Take with food. Hypertension: Normal BP < 130/80. No home readings available. Date: BP: 02/11/2024 128/80 08/13/2023 132/85 02/08/2023 132/84 02/06/2023 123/84 Plan: - continue HCTZ, Irbesartan, metoprolol -Recommend home monitoring. Notify the office if BP averages > 130/80 Exercise/Weight/Nutrition: ExRx 01/2023. Averaging 4000 steps per day, likely undercounting due to pushing wheelchair. Occasional walks, weather permitting. Started PT for shoulder pain, but did not continue therapy. Weight gain of 10 lb since last visit. PLAN: -Increase regular exercise. Optimal goal is 150 min per week -Limit starches, carbs, saturated fats. History of post-op atrial fibrillation: Previously seen by Dr. Javier. No recurrence. Not on anticoagulation. Medication change: None Physicians and Nurse Practitioners work closely together in Preventive Cardiology. If at any time you would like to see a Physician for a visit, please let us know. Last visit with [facility] physician: Faye 02/06/23 AMBULATORY PATIENT EDUCATION Topic: Education on risk factors and medications. Instruction Provided To: Patient Cognitive Ability: Alert/Oriented Barriers: None Motivation to Learn: Interested Methods of Instruction: Verbal instruction and/or handouts. Patient Leans Best By: Multiple Methods Patient Verbalized: Understanding I personally spent 32 minutes in total time involved in the management and care of this patient. Abeba Keen APRN.CNP documented in this encounter [facility] 11-11-2023 Miscellaneous Notes Call from patient requesting refill. Requested Prescriptions Pending Prescriptions Disp Refills hydroCHLOROthiazide 25 mg tablet 90 tablet 3 Sig: Take 1 tablet by mouth once daily. Patient last seen 08/17 Indira Zavala documented in this encounter [facility] 08-13-2023 Note HNO ID: [id number] Author: Abeba Keen APRN.CNP Service: ? Author Type: Nurse Practitioner Type: Progress Notes Filed: 08/23/2023 4:31 PM Note Text: [facility] [place] [facility] Department of Cardiovascular Medicine SECTION OF PREVENTIVE CARDIOLOGY 08/13/2023 Wally Barrow CURRENT MEDS: Current Outpatient Medications Medication Sig iron bisgly,ps-FA-B-C#12-succ 65 mg-65 mg -1,000 mcg (24) tab Take 65 mg by mouth once weekly irbesartan (AVAPRO) 300 mg tablet Take 1 tablet by mouth daily at bedtime. aspirin, enteric coated (ASPIRIN, ENTERIC COATED) 81 mg EC tablet Take 81 mg by mouth once daily. OTC PRODUCT once daily. OTC Force Factor take 3 tablet once per day kk-ei-G-theanine-herb no.310 (AIRBORNE EVERYDAY STRESS AWAY) 1,000 mg-200 mg-360 mg pwpk Take by mouth. acetaminophen (TYLENOL) 325 mg tablet Take 650 mg by mouth as needed for pain. sodium chloride (SALINE MIST NASAL) Use in the nose. hydroCHLOROthiazide (HYDRODIURIL, ESIDRIX) 25 mg tablet Take 1 tablet by mouth once daily. metoprolol succinate ER (TOPROL XL) 25 mg 24 hr tablet Take 1 tablet by mouth every evening. azithromycin (ZITHROMAX) 500 mg tablet Take 1 tablet by mouth once daily. Take one tablet 60 minutes prior to procedure. omega 8-yln-yrc-fish oil (FISH OIL) 900-1,400 mg cpDR Take 1,400 mg by mouth once daily. multivitamin tablet Take 1 tablet by mouth once daily. (Patient taking differently: Take by mouth twice daily. Pt takes 1 capsule by mouth twice per day) olopatadine (PATADAY TWICE DAILY RELIEF) 0.1 % ophthalmic solution Use 1 Drop in both eyes twice daily. calcium citrate/vitamin D3 (CALCIUM CITRATE + ORAL) Take by mouth twice daily. Pt takes 2 capsule by mouth twice per day. tolnaftate (FORMULA 3 TOPICAL) Apply 1 application to affected area once daily. cyanocobalamin, vitamin B-12, (VITAMIN B-12 SUBLINGUAL) Dissolve 1 Dose under the tongue once daily. OTC PRODUCT 0.9% NaCl Sinus Rinse Cholecalciferol, Vitamin D3, 50 mcg (2,000 unit) cap Take 1,000 Units by mouth twice daily. ubidecarenone/vitamin E mixed (COQ10 SG 100 ORAL) Take 1 capsule by mouth once daily. psyllium husk, bulk, 100 % powd 1 teaspoonful twice daily. Current Facility-Administered Medications Medication Dose Route Frequency perflutren lipid microspheres 1.3 mL in NaCl (PF) 0.9% 10 mL injection (DEFINITY) INTRAVENOUS DIRECTED PRN sodium chloride 0.9 % (flush) 10 mL (BD POSIFLUSH) 10 mL INTRAVENOUS DIRECTED PRN perflutren lipid microspheres 1.3 mL in NaCl (PF) 0.9% 10 mL injection (DEFINITY) INTRAVENOUS DIRECTED PRN sodium chloride 0.9 % (flush) 10 mL (BD POSIFLUSH) 10 mL INTRAVENOUS DIRECTED PRN ALLERGIES: ALLERGIES Allergen Reactions Lisinopril Cough CHIEF COMPLAINT: Wally Barrow is a 77 year old White male seen today. 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 Briggs, and postoperative atrial fibrillation. Patient presents for ongoing management of cardiovascular risk factors. Chest pain: Yes : Pain Scale: 1-10 scale 3/10, Duration: a few seconds, Frequency: a few times per week and Character: aching. Occurs at random, usually while at rest. No symptoms with exertion. This has occurred for a few months without progression. Claudication: No SOB: yes, noted while pushing his uphill in wheelchair. No significant change in shortness of breath over the last 6 months. Orthopnea: No PND: No LE: No Lightheadedness/dizziness: yes, mild - more often when in kitchen. No particular trigger. Palpitations:No Bleeding/bruising: No CARDIAC RISK FACTORS: History question Answer Diagnosis Date Comment Hypertension : Hypertension 11/25/1989 Exercise: Three to five times per week Family History of CAD: Negative Walking 2-3 hours several days per week, pushing wheelchair Avg. Sleep Hours Per Night?: 8 STATIN INTOLERANCE: Adverse Effect History of Statin Intolerance:: No Current Statin Freq: None Intolerance to Ezetimibe: No Intolerance to Niacin: No Intolerance to Fibrates: No Intolerance to Bile Acid Sequestrants: No USE OF PCSK9 INHIBITORS: CARDIOVASCULAR DISEASE HISTORY: CAD EVENTS; Cath: mild <30%: Yes 06/02/18 PVD EVENTS: Acending Aorta Repair: Yes 08/12/18 CVD EVENTS: FAMILY AND SOCIAL HISTORY Lifestyle Tobacco Use: 1.5 packs/day, for 25 years. Quit 08/11/1990. Types: Cigarettes Alcohol Use: Approximately 2.4 oz/week [which includes 4 Glasses of Wine (5oz) per week] (social) PHYSICAL EXAMINATION Vital Signs and General Appearance BP 132/85 Pulse 60 Wt 84.9 kg (187 lb 1.6 oz) BMI 26.85 kg/m? BMI 26 (more content not included)... [facility] 08-13-2023 History of Present illness Narrative Images from the original note were not included. [facility] [place] [facility] Department of Cardiovascular Medicine SECTION OF PREVENTIVE CARDIOLOGY 08/13/2023 Frankiedominique Pak Jose C CURRENT MEDS: Current Outpatient Medications Medication Sig iron bisgly,ps-FA-B-C#12-succ 65 mg-65 mg -1,000 mcg (24) tab Take 65 mg by mouth once weekly irbesartan (AVAPRO) 300 mg tablet Take 1 tablet by mouth daily at bedtime. aspirin, enteric coated (ASPIRIN, ENTERIC COATED) 81 mg EC tablet Take 81 mg by mouth once daily. OTC PRODUCT once daily. OTC Force Factor take 3 tablet once per day pf-kw-U-theanine-herb no.310 (AIR[place]ORNE EVERYDAY STRESS AWAY) 1,000 mg-200 mg-360 mg pwpk Take by mouth. acetaminophen (TYLENOL) 325 mg tablet Take 650 mg by mouth as needed for pain. sodium chloride (SALINE MIST NASAL) Use in the nose. hydroCHLOROthiazide (HYDRODIURIL, ESIDRIX) 25 mg tablet Take 1 tablet by mouth once daily. metoprolol succinate ER (TOPROL XL) 25 mg 24 hr tablet Take 1 tablet by mouth every evening. azithromycin (ZITHROMAX) 500 mg tablet Take 1 tablet by mouth once daily. Take one tablet 60 minutes prior to procedure. omega 2-mzm-smn-fish oil (FISH OIL) 900-1,400 mg cpDR Take 1,400 mg by mouth once daily. multivitamin tablet Take 1 tablet by mouth once daily. (Patient taking differently: Take by mouth twice daily. Pt takes 1 capsule by mouth twice per day) olopatadine (PATADAY TWICE DAILY RELIEF) 0.1 % ophthalmic solution Use 1 Drop in both eyes twice daily. calcium citrate/vitamin D3 (CALCIUM CITRATE + ORAL) Take by mouth twice daily. Pt takes 2 capsule by mouth twice per day. tolnaftate (FORMULA 3 TOPICAL) Apply 1 application to affected area once daily. cyanocobalamin, vitamin B-12, (VITAMIN B-12 SUBLINGUAL) Dissolve 1 Dose under the tongue once daily. OTC PRODUCT 0.9% NaCl Sinus Rinse Cholecalciferol, Vitamin D3, 50 mcg (2,000 unit) cap Take 1,000 Units by mouth twice daily. ubidecarenone/vitamin E mixed (COQ10 SG 100 ORAL) Take 1 capsule by mouth once daily. psyllium husk, bulk, 100 % powd 1 teaspoonful twice daily. Current Facility-Administered Medications Medication Dose Route Frequency perflutren lipid microspheres 1.3 mL in NaCl (PF) 0.9% 10 mL injection (DEFINITY) INTRAVENOUS DIRECTED PRN sodium chloride 0.9 % (flush) 10 mL (BD POSIFLUSH) 10 mL INTRAVENOUS DIRECTED PRN perflutren lipid microspheres 1.3 mL in NaCl (PF) 0.9% 10 mL injection (DEFINITY) INTRAVENOUS DIRECTED PRN sodium chloride 0.9 % (flush) 10 mL (BD POSIFLUSH) 10 mL INTRAVENOUS DIRECTED PRN ALLERGIES: ALLERGIES Allergen Reactions Lisinopril Cough CHIEF COMPLAINT: Wally Barrow is a 77 year old White male seen today. 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 Briggs, and postoperative atrial fibrillation. Patient presents for ongoing management of cardiovascular risk factors. Chest pain: Yes : Pain Scale: 1-10 scale 3/10, Duration: a few seconds, Frequency: a few times per week and Character: aching. Occurs at random, usually while at rest. No symptoms with exertion. This has occurred for a few months without progression. Claudication: No SOB: yes, noted while pushing his uphill in wheelchair. No significant change in shortness of breath over the last 6 months. Orthopnea: No PND: No LE: No Lightheadedness/dizziness: yes, mild - more often when in kitchen. No particular trigger. Palpitations:No Bleeding/bruising: No CARDIAC RISK FACTORS: History question Answer Diagnosis Date Comment Hypertension : Hypertension 11/25/1989 Exercise: Three to five times per week Family History of CAD: Negative Walking 2-3 hours several days per week, pushing wheelchair Avg. Sleep Hours Per Night?: 8 STATIN INTOLERANCE: Adverse Effect History of Statin Intolerance:: No Current Statin Freq: None Intolerance to Ezetimibe: No Intolerance to Niacin: No Intolerance to Fibrates: No Intolerance to Bile Acid Sequestrants: No USE OF PCSK9 INHIBITORS: CARDIOVASCULAR DISEASE HISTORY: CAD EVENTS; Cath: mild <30%: Yes 06/02/18 PVD EVENTS: Acending Aorta Repair: Yes 08/12/18 CVD EVENTS: FAMILY AND SOCIAL HISTORY Lifestyle Tobacco Use: 1.5 packs/day, for 25 years. Quit 08/11/1990. Types: Cigarettes Alcohol Use: Approximately 2.4 oz/week [which includes 4 Glasses of Wine (5oz) per week] (social) PHYSICAL EXAMINATION Vital Signs and General Appearance BP 132/85 Pulse 60 Wt 84.9 kg (187 lb 1.6 oz) BMI 26.85 kg/m BMI 26.85 kg/(m^2) PHYSICAL EXAMINATION: General appearance: well appearing, alert, in no acute distress, and well-hydrated, well nourished Carotid Pulses: Left:2+, Right: 2+, Bruit: No Lungs: lungs clear to auscultation no wheezing or rhonchi Heart: regular rate and rhythm without murmur, normal S1 and S2 Lower Extremities Pulses: Right Posterior Tibial: 2+, Left Posterior Tibial: 2+, Edema: No significant edema Clinical Test Results Last ECHO Result Conclusion ECHO Collected: 05/15/2023 9:30 AM (Final result) Impression: CONCLUSIONS: - Exam indication: S/p AVR - The left ventricle is normal in size. Left ventricular systolic function is normal. EF = 62 5% (2D biplane) Normal left ventricular diastolic function. - The right ventricle is normal in size. Right ventricular systolic function is normal. RV appears prominent on some views. 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 There is no aortic valve regurgitation. The peak gradient is 23 mmHg, the mean gradient is 13 mmHg and the dimensionless valve index is 0.46. Prior gradients were 20/11 mmHg. - Exam was compared with the prior echocardiographic exam performed on 08/16/2022. Similar findings. * * * Final * * * Last EKG Result Conclusion ECG COMPLETE Collected: 01/11/2023 11:21 AM (Final result) Impression: NORMAL SINUS RHYTHM LEFT AXIS DEVIATION ABNORMAL ECG Confirmed by ARASELI FALLON MD ([id number]) on 01/14/2023 10:15:12 AM Ejection Fraction: Ejection Fraction: Normal (>50%) Lab Results: Lipoprotein (a) Date Value Ref Range Status 10/29/2016 <2 0 - 40 mg/dL Final Comment: Result rechecked. Fib Clot Date Value Ref Range Status 08/12/2018 109 (L) 200 - 400 mg/dL Final Cholesterol, Total Date Value Ref Range Status 04/05/2023 138 <200 mg/dL Final Comment: <200 mg/dL, Desirable 200-239 mg/dL, Borderline high >239 mg/dL, High Triglyceride Date Value Ref Range Status 04/05/2023 159 (H) <150 mg/dL Final Comment: <150 mg/dL, Normal 150-199 mg/dL, Borderline high 200-499 mg/dL, High >499 mg/dL, Very high HDL Cholesterol Date Value Ref Range Status 04/05/2023 35 (L) >39 mg/dL Final Comment: 40-59 mg/dL, Acceptable >59 mg/dL, High: Negative risk factor for coronary heart disease <40 mg/dL, Low: Positive risk factor for coronary heart disease LDL Cholesterol Date Value Ref Range Status 04/05/2023 71 <100 mg/dL Final Comment: <100 mg/dL, Optimal 100-129 mg/dL, Near optimal/above optimal 130-159 mg/dL, Borderline high 160-189 mg/dL, High >189 mg/dL, Very high Secondary prevention optimal LDL Cholesterol levels are recommended to be < 70 mg/dL ALT Date Value Ref Range Status 04/05/2023 21 10 - 54 U/L Final Glucose Date Value Ref Range Status 04/05/2023 77 74 - 99 mg/dL Final Comment: The [place] Diabetes Association (ADA) provides guidance for cutoff values for fasting glucose and random glucose. The ADA defines fasting as no caloric intake for at least 8 hours. Fasting plasma glucose results between 100 to 125 mg/dL indicate increased risk for diabetes (prediabetes). Fasting plasma glucose results greater than or equal to 126 mg/dL meet the criteria for diagnosis of diabetes. In the absence of unequivocal hyperglycemia, results should be confirmed by repeat testing. In a patient with classic symptoms of hyperglycemia or hyperglycemic crisis, random plasma glucose results greater than or equal to 200 mg/dL meet the criteria for diagnosis of diabetes. Reference: Standards of Medical Care in Diabetes 2016, [place] [employer]. Diabetes Care. 2016.39(Suppl 1). TSH Date Value Ref Range Status 01/09/2017 1.830 0.400 - 5.500 uU/mL Final UltraSens C-Reactive Protein Date Value Ref Range Status 02/27/2017 0.3 <3.1 mg/L Final Comment: (NOTE) hsCRP < 1.0 mg/L, relative risk is low hsCRP 1.0-3.0 mg/L, relative risk is average hsCRP > 3.0 mg/L, relative risk is high Reference: Chanel TA, Whit GA, Kj RW, et al. Markers of Inflammation and Cardiovascular Disease. Application to Clinical and Public Health Practice. A Statement for Healthcare Professionals From the Centers for Disease Control and Prevention and the [place] [employer]. Circulation 2003;107:499-511. Creatinine Date Value Ref Range Status 04/05/2023 1.18 0.73 - 1.22 mg/dL Final Potassium Date Value Ref Range Status 04/05/2023 3.5 (L) 3.7 - 5.1 mmol/L Final NT Pro BNP Date Value Ref Range Status 06/26/2018 528 (H) <125 pg/mL Final Patient Entered Questionnaire Scores PHQ-9 02/07/2023 01/09/2017 Score 2 0 ZBIGNIEW - 7 SCORES 02/07/2023 ZBIGNIEW-7 Score 2 PROMIS Global Health - (T-Scores - the mean of general population = 50. Five points is a clinically meaningful difference.) 07/23/2023 02/07/2023 01/09/2017 Physical T-Score 44.9 47.7 54.1 Mental T-Score 43.[address] (chest) 05/18/22 IMPRESSION: In summary, Mr. Barrow is a 77 year old male who was referred to the [facility] because of , Dyslipidemia PLAN: The results of this assessment were discussed with the patient. We have mutually agreed upon the following plans and goals: S/p AVR: s/p AVR (Bio Bentall # 27 CE valve), Aortic root and ascending aorta replacement (28 gelweave graft) on 08/12/[address] Briggs. Echo 04/2023 showed no significant change. EF 62%. Chest discomfort: Pt describes having a chest aching for a brief few seconds a few times per week. No symptoms with exercise or exertion. Discomfort occurs at random. It has occurred for a few months without progression. A nuclear stress test 12/2022 showed no ischemia. EF 78%. PLAN: -Discomfort is atypical for a cardiac chest pain. Pt is able to exercise regularly without symptoms. Notify the office if symptoms progress or change. Hyperlipidemia: LDL goal <100, no CAD on cath. LDL 114 in 01/2023, but now improved. Component Latest Ref Rng & Units 04/05/2023 Cholesterol, Total <200 mg/dL 138 Triglyceride <150 mg/dL 159 (H) HDL Cholesterol >39 mg/dL 35 (L) LDL Cholesterol <100 mg/dL 71 PLAN: -Continue diet control. There is limited data in starting a statin for a primary prevention patient >75 years with LDL<100 -Limit carbs to help lower TG. Anti-platelet / Anti-coagulant: on aspirin 81mg daily Hypertension: Normal BP < 130/80. No home readings available. Date: BP: 08/13/2023 132/85 02/08/2023 132/84 02/06/2023 123/84 Plan: - continue HCTZ, Irbesartan, metoprolol -Recommend home monitoring. Notify the office if BP averages > 130/80 Exercise/Weight/Nutrition: ExRx 01/2023. Pt is walking 2-3 hours several days per week, pushing his in a wheelchair. Pt would like to reach 180 lb. Discussed saturated fat, carbs. History of post-op atrial fibrillation: Previously seen by Dr. Javier. No recurrence. Not on anticoagulation. Physicians and Nurse Practitioners work closely together in Preventive Cardiology. If at any time you would like to see a Physician for a visit, please let us know. Last visit with [facility] physician: Faye 02/06/23 AMBULATORY PATIENT EDUCATION Topic: Education on risk factors and medications. Instruction Provided To: Patient Cognitive Ability: Alert/Oriented Barriers: None Motivation to Learn: Interested Methods of Instruction: Verbal instruction and/or handouts. Patient Leans Best By: Multiple Methods Patient Verbalized: Understanding I personally spent 32 minutes in total time involved in the management and care of this patient. Abeba Keen APRN.INSTRUMENT TECHNICIAN HELPER documented in this encounter [facility] 07-24-2023 Note HNO ID: [id number] Author: Lucy Hutton PT Service: ? Author Type: Physical Therapist Type: Progress Notes Filed: 07/24/2023 2:49 PM Note Text: Episode Visit Count: 1 Therapist That Will Accept/Oversee The Plan Of Care: Lucy Hutton Start of Care Date: 07/24/23 Onset Date: 01/22/23 Plan of Care Certification Date: 07/24/23 Next Certification Due Date: 04/07/25 Patient Identified by Name and Date of : Yes RE[facility]ABILITATION AND SPORTS THERAPY PHYSICAL THERAPY EVALUATION PLAN OF CARE: Assessment: Wally Barrow presents with chief complaint of right shoulder pain that interferes with lifting, recreational activities, physical activities, heavy exertion . He presents with impairments in ADL's, symptom management, and tissue tenderness. PROMIS? (Patient-Reported Outcomes Measurement Information System) scores were reviewed and physical function domain and self efficacy domain identified as within normal limits. Prognosis for therapy is Good due to: current objective clinical presentation . He will benefit from skilled therapy services to meet the goals established for this plan of care as noted below. Based on the patient's history, the components of the examination, the patient presentation, and required decision-making as described in this evaluation, this patient's evaluation falls into the low category of complexity as described by AMA CPT codes. Patient can benefit from skilled care to address patient's impairments and improve their function. Goals for Episode of Care: created on 07/24/23 through 09/18/23 Patient will be able to sleep through the night without waking with right shoulder pain. Patient will be able to perform household activities of daily living without right shoulder pain. Navarro in home exercise program. Patient Goals: decrease shoulder pain Planned Interventions, Frequency, and Duration: Current Frequency: 1x/month Duration: 8 weeks Total Number of Visits Planned: 2 Planned Treatment Interventions: Therapeutic exercise (23140), Manual therapy (95939), Neuromuscular re-education (49391), Therapeutic activities (14377), Self-shelter management (31179), Patient/Family/Caregiver Education, Body Mechanics Training PLAN FOR NEXT VISIT: progression of shoulder activation / coordination. manual therapy as needed Patient demonstrates good understanding of plan of care and treatment. The above goals and plan of care were discussed and agreed upon by patient/family. SUBJECTIVE: Patient presents today with right shoulder pain. Patient reports history of right rotator cuff repair about 12 years ago. He notes ongoing right shoulder pain. He has worked on maintaining his motion. He had an MRI that showed he has a complete supraspinatus muscle tear. He had a recent cortizone injection that has helped a lot with his current pain. Patient Goals: decrease shoulder pain Functional Limitations: lifting, recreational activities, physical activities, heavy exertion Prior Level of Function: Independent without limitations Relevant History Right or Left Handed: Right Employment: Retired Home Environment Patient Lives With: Spouse Intake Information: Prescription present Previous Treatment: Physical Therapy , Injections Falls Interview: No positive findings with falls interview Pain: Pain Pain Level: 3 Pain Location: Shoulder - Right Description: Aching Frequency: Intermittent Post Treatment Pain Post Treatment Pain Level: Better PROMIS Scales Higher is Better 07/23/2023 Phys Func - Score 44 (mild dysfunction) Phys Func - Percentile 27 % Self-Eff Symptom - Score 41 (Average) Self-Eff Symptom - Percentile 18 % T-scores: mean of general population = 50. 5 points is clinically meaningfully difference Percentiles provide an indication of how the patient's score ranks in relation to the general population. Higher percentile rankings indicate better function/quality of life. 50th percentile is the average of the general population and indicates half of respondents had a worse score. OBJECTIVE MEASURES WITH LEVEL OF FUNCTION: Posture / Alignment Posture: Good Shoulder Observations R Shoulder Palpation Tenderness: Rotator cuff muscles Sensation - Upper Extremity UE Light Touch Sensation: Grossly Intact UE AROM R UE AROM: wnl throughout L UE AROM: wnl throughout UE Joint Mobility R Shoulder joint mobility: WNL UE and Cervical Strength Strength Tested: Shoulder All L UE Strength: 5/5 R Shoulder Shrug (C4): 5/5 R Shoulder Extension: 5/5 R Shoulder Flexion: 4/5 (pain) R Shoulder Abduction (C5): 4/5 (pain) R Shoulder Internal Rotation: 5/5 R Shoulder External Rotation: 4/5 (pain) Education: Education Learning Preferences: Demonstration, Explanation, Performance Barriers: None Learning/educational needs: Plan of Care, Home exercise program Education Provided: Yes, see treatment interventions for (more content not included)... [facility] 07-08-2023 Note HNO ID: [id number] Author: Reji Weems MD Service: ? Author Type: Physician Type: Progress Notes Filed: 07/08/2023 11:39 AM Note Text: Reji Weems M.D. MGregM.Sc. Highway Engineering Technician of Orthopaedic Surgery at [place] [address] Office: [phone] Consult requested for an opinion regarding the evaluation and treatment of the above patient. My final impression and recommendations will be communicated back to the requesting physician by way of the shared medical record or letter via [place] mail. Patient info: Wally Barrow ([id number]) Service date: 07/08/2023 Referred by: No referring provider defined for this encounter. PCP: MD Dae Chief Complaint: Right shoulder pain. HPI:Wally Barrow is a 77 year old Right hand dominant male who presents with 1 year history of Right shoulder pain. History of prior injury yes. Patient reports having prior rotator cuff surgery on the right side, which was fine until a few years after. Describes pain as sharp and radiating down to wrists. He has a remote history of surgery approximately 20 years ago on the right side. He then had left-sided shoulder surgery and believes he aggravated the right side at that time about 10 years ago. 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 Does not notice a loss of function but he has significant pain with doing certain activities. Previous interventions have been tried including physical therapy as well as topical and xnnx-nuo-exrjndi medications. Wally reports a current pain level of 4 (Shoulder-Right). He describes the pain as Aching, Radiating, Sharp. The pain is Continuous, and has lasted for 1 Years. Interventions tried include Reposition, Heat, Positioning. varies from shoulder down to elbow, wrist and neck. does not diminish with nsaids or muscle relaxer use. No shoulder imaging is available at this time. PAIN EVALUATION 07/07/20232 Pain Level: 4 Pain Location: Shoulder-Right Description: Aching;Radiating;Sharp Duration Amount of Time: 1 Duration Units: Years Frequency: Continuous Intervention/Comfort measure: Reposition;Heat;Positioning Comments: varies from shoulder down to elbow, wrist and neck. does not diminish with nsaids or muscle relaxer use Other pertinent Hx: Employer And Job Title: No employer specified (retired) Years Of Education Completed: 16+ years Marital Status: with 7 children BWC: no Physical Therapy: Corticosteroid Injections: Orthopaedic Injections (up to last 5) Some values may be hidden. Unless noted otherwise, only the newest values recorded on each date are displayed. Orthopaedic Injection History 07/08/23 Location shoulder Shoulder Site R shoulder joint Medication 80 mg triamcinolone acetonide 40 mg/mL History of Smoking: Not specified History of frequent fall: no How many falls in the past 1 year: 0 Prior treatments: PT Greater Than 3 Months Modified Activity OTC NSAIDS for Greater Than 3 Months Ice and/or Heat Previous Surgery: Arthroscopic Rotator Cuff Repair REVIEW OF SYMPTOMS: Constitutional: Any recent fevers? Negative Cardiovascular: Any chest pain? Negative Respiratory: Any shortness or breath? Negative Gastrointestinal: Any abdominal discomfort? Negative Integumentary: Any recent skin changes or rashes? Negative Neurologic: Any numbness or tingling? Negative Endocrine: Any diagnosis of diabetes? Negative Hematologic: Any recent bleeding episodes? Negative FAMILY HISTORY Problem Relation Age of Onset Alzheimer's Disease Mother Hypertension Mother Stroke Father Cancer Father Prostate Alzheimer's Disease Sister other (Other) Sister Jeri Teran's Disease PAST MEDICAL HISTORY Diagnosis Date Aortic insufficiency Ascending aortic aneurysm (HCC) Dilated aortic root (HCC) History of GI bleed history of bleeding ulcer HLD (hyperlipidemia) Hypertension 11/25/1989 Mitral insufficiency Paroxysmal atrial fibrillation (HCC) 08/15/2018 Tricuspid insufficiency PAST SURGICAL HISTORY Procedure Laterality Date CHOLECYSTECTOMY HX with concurrent umbilical hernia repair HAND SURGERY HX Right piece of bone removed and tendon repair for arthritis KNEE ARTHROSCOPY Right fluid removed SHOULDER SURGERY HX Bilateral rotator cuff SHX AORTIC VALVE REPLACEMENT 08/12/2018 SINUS SURGERY HX ALLERGIES Allergen Reactions Lisinopril Cough Problem List: reviewed and updated. Social History: Social History Tobacco Use Smoking status: Former Packs/day: 1.50 Years: 25.00 Additional pack years: 0.00 Total pack years: 37.50 Types: Cigarettes Quit date: 08/11/1990 Years since quittin.9 Smokeless tobacco: Never Tobacco comments: Quit over 30 yrs ago Vaping Use Vaping Use: Never used Substance Use Topics Alcohol use: Yes Alcohol/week: 6.0 stand (more content not included)... 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 Reji RiveraM.Sc. Highway Engineering Technician of Orthopaedic Surgery at [place] [address] Office: [phone] Consult requested for an opinion regarding the evaluation and treatment of the above patient. My final impression and recommendations will be communicated back to the requesting physician by way of the shared medical record or letter via [place] mail. Patient info: Wally Barrow ([id number]) Service date: 07/08/2023 Referred by: No referring provider defined for this encounter. PCP: MD Dae Chief Complaint: Right shoulder pain. HPI:Wally Barrow is a 77 year old Right hand dominant male who presents with 1 year history of Right shoulder pain. History of prior injury yes. Patient reports having prior rotator cuff surgery on the right side, which was fine until a few years after. Describes pain as sharp and radiating down to wrists. He has a remote history of surgery approximately 20 years ago on the right side. He then had left-sided shoulder surgery and believes he aggravated the right side at that time about 10 years ago. 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 Does not notice a loss of function but he has significant pain with doing certain activities. Previous interventions have been tried including physical therapy as well as topical and kmol-mnf-vsqmkln medications. Wally reports a current pain level of 4 (Shoulder-Right). He describes the pain as Aching, Radiating, Sharp. The pain is Continuous, and has lasted for 1 Years. Interventions tried include Reposition, Heat, Positioning. varies from shoulder down to elbow, wrist and neck. does not diminish with nsaids or muscle relaxer use. No shoulder imaging is available at this time. PAIN EVALUATION 07/07/20232151 Pain Level: 4 Pain Location: Shoulder-Right Description: Aching;Radiating;Sharp Duration Amount of Time: 1 Duration Units: Years Frequency: Continuous Intervention/Comfort measure: Reposition;Heat;Positioning Comments: varies from shoulder down to elbow, wrist and neck. does not diminish with nsaids or muscle relaxer use Other pertinent Hx: Employer And Job Title: No employer specified (retired) Years Of Education Completed: 16+ years Marital Status: with 7 children BWC: no Physical Therapy: Corticosteroid Injections: Orthopaedic Injections (up to last 5) Some values may be hidden. Unless noted otherwise, only the newest values recorded on each date are displayed. Orthopaedic Injection History 07/08/23 Location shoulder Shoulder Site R shoulder joint Medication 80 mg triamcinolone acetonide 40 mg/mL History of Smoking: Not specified History of frequent fall: no How many falls in the past 1 year: 0 Prior treatments: PT Greater Than 3 Months Modified Activity OTC NSAIDS for Greater Than 3 Months Ice and/or Heat Previous Surgery: Arthroscopic Rotator Cuff Repair REVIEW OF SYMPTOMS: Constitutional: Any recent fevers? Negative Cardiovascular: Any chest pain? Negative Respiratory: Any shortness or breath? Negative Gastrointestinal: Any abdominal discomfort? Negative Integumentary: Any recent skin changes or rashes? Negative Neurologic: Any numbness or tingling? Negative Endocrine: Any diagnosis of diabetes? Negative Hematologic: Any recent bleeding episodes? Negative FAMILY HISTORY Problem Relation Age of Onset Alzheimer's Disease Mother Hypertension Mother Stroke Father Cancer Father Prostate Alzheimer's Disease Sister other (Other) Sister Jeri Brittg's Disease PAST MEDICAL HISTORY Diagnosis Date Aortic insufficiency Ascending aortic aneurysm (HCC) Dilated aortic root (HCC) History of GI bleed history of bleeding ulcer HLD (hyperlipidemia) Hypertension 11/25/1989 Mitral insufficiency Paroxysmal atrial fibrillation (HCC) 08/15/2018 Tricuspid insufficiency PAST SURGICAL HISTORY Procedure Laterality Date CHOLECYSTECTOMY HX with concurrent umbilical hernia repair HAND SURGERY HX Right piece of bone removed and tendon repair for arthritis KNEE ARTHROSCOPY Right fluid removed SHOULDER SURGERY HX Bilateral rotator cuff SHX AORTIC VALVE REPLACEMENT 08/12/2018 SINUS SURGERY HX ALLERGIES Allergen Reactions Lisinopril Cough Problem List: reviewed and updated. Social History: Social History Tobacco Use Smoking status: Former Packs/day: 1.50 Years: 25.00 Additional pack years: 0.00 Total pack years: 37.50 Types: Cigarettes Quit date: 08/11/1990 Years since quittin.9 Smokeless tobacco: Never Tobacco comments: Quit over 30 yrs ago Vaping Use Vaping Use: Never used Substance Use Topics Alcohol use: Yes Alcohol/week: 6.0 standard drinks of alcohol Types: 6 Glasses of Wine (5oz) per week Comment: social Drug use: No Current Outpatient Medications Medication Sig multivitamin tablet Take 1 tablet by mouth once daily. (Patient taking differently: Take by mouth twice daily. Pt takes 1 capsule by mouth twice per day) calcium citrate/vitamin D3 (CALCIUM CITRATE + ORAL) Take by mouth twice daily. Pt takes 2 capsule by mouth twice per day. bi-[id number]-[id number]-Vvl-[id number] 334-1.7 mg chew Take 1 tablet by mouth once daily. aspirin 81 mg chewable tablet Take 1 tablet by mouth once daily. aspirin, enteric coated (ASPIRIN, ENTERIC COATED) 81 mg EC tablet Take 81 mg by mouth once daily. cyclobenzaprine (FLEXERIL) 10 mg tablet Take 10 mg by mouth at bedtime as needed. OTC PRODUCT once daily. OTC Force Factor take 3 tablet once per day [id number]-theanine-herb no.310 (AIRBORNE EVERYDAY STRESS AWAY) 1,000 mg-200 mg-360 mg pwpk Take by mouth. acetaminophen (TYLENOL) 325 mg tablet Take 650 mg by mouth as needed for pain. sodium chloride (SALINE MIST NASAL) Use in the nose. hydroCHLOROthiazide (HYDRODIURIL, ESIDRIX) 25 mg tablet Take 1 tablet by mouth once daily. irbesartan (AVAPRO) 300 mg tablet Take 1 tablet by mouth daily at bedtime. metoprolol succinate ER (TOPROL XL) 25 mg 24 hr tablet Take 1 tablet by mouth every evening. azithromycin (ZITHROMAX) 500 mg tablet Take 1 tablet by mouth once daily. Take one tablet 60 minutes prior to procedure. omega 6-wgd-izu-fish oil (FISH OIL) 900-1,400 mg cpDR Take 1,400 mg by mouth once daily. olopatadine (PATADAY TWICE DAILY RELIEF) 0.1 % ophthalmic solution Use 1 Drop in both eyes twice daily. iron bisgly,ps-FA-B-C#12-succ 65 mg-65 mg -1,000 mcg (24) tab Take 65 mg by mouth once daily. tolnaftate (FORMULA 3 TOPICAL) Apply 1 application to affected area once daily. cyanocobalamin, vitamin B-12, (VITAMIN B-12 SUBLINGUAL) Dissolve 1 Dose under the tongue once daily. OTC PRODUCT 0.9% NaCl Sinus Rinse Cholecalciferol, Vitamin D3, 50 mcg (2,000 unit) cap Take 1,000 Units by mouth twice daily. ubidecarenone/vitamin E mixed (COQ10 SG 100 ORAL) Take 1 capsule by mouth once daily. psyllium husk, bulk, 100 % powd 1 teaspoonful twice daily. Current Facility-Administered Medications Medication Dose Route Frequency perflutren lipid microspheres 1.3 mL in NaCl (PF) 0.9% 10 mL injection (DEFINITY) INTRAVENOUS DIRECTED PRN sodium chloride 0.9 % (flush) 10 mL (BD POSIFLUSH) 10 mL INTRAVENOUS DIRECTED PRN perflutren lipid microspheres 1.3 mL in NaCl (PF) 0.9% 10 mL injection (DEFINITY) INTRAVENOUS DIRECTED PRN sodium chloride 0.9 % (flush) 10 mL (BD POSIFLUSH) 10 mL INTRAVENOUS DIRECTED PRN General Physical Exam: Ht 177.8 cm (5' 10 ) Wt 82.1 kg (181 lb) BMI 25.97 kg/m BMI 25.97 kg/(m^2) Constitutional: Pleasant, well-appearing, no acute distress. Resp: breathing is unlabored without audible wheeze Vascular: Normal pedal and radial pulses, no cyanosis, no venous stasis changes Skin: No overlying skin change, ecchymosis, or erythema. Psychiatric: Pleasant, direct, appropriate mood and affect Focused Musculoskeletal/Neurologic exam: Right Shoulder Atrophy/asymmetry No Scapular dyskinesia No AC tenderness No ROM (Passive/Active): FE (degree) 180/170 ER (degree) 90/80 ER Lag (degree) 0 IR (degree) T10 Strength (1-5) ABD in plane of scapula 5-/5 ER 5-/5 IR 5-/5 Provocative tests: Job s test Positive Neer and Paz test Negative Belly press test Negative O Simon s test Negative Speed's test Positive Hornblower's sign Negative Cross Body Adduction Negative Apprehension Negative Sulcus Negative Load and Shift Negative Nerve deficit (motor/sensory) Radial n. Negative Median n. Negative Ulnar n. Negative Axillary n. Negative Vascular Distal perfusion normal Contra-lateral shoulder: within normal limits Imaging Studies: All relevant imaging studies have been reviewed and interpreted by myself and discussed with the patient. Radiographic studies: XR of the Right Shoulder was reviewed. 3 view X-rays shows no joint space narrowing with no evidence of arthritis, well maintained glenohumeral relationship in AP and axillary view, normal bony structures, no calcification within the soft tissue and no evidence of fracture, subluxation or dislocation. There is evidence of previous rotator cuff repair. MRI of the right shoulder from an outside facility was also reviewed. Demonstrates previous failed rotator cuff repair with medial subluxation and degeneration of the biceps tendon as well as attenuation of the subscapularis. There is a full-thickness recurrent retracted supraspinatus tear with extension into thefootprint as well. There are mild osteoarthritic changes noted. Risk profile: Obesity normal High: BMI > 40 Moderate: BMI 30-40 Normal: BMI < 30 Diabetes normal High: A1C > 8 Moderate: A1C 7-8 Normal: A1C < 7 Smoking normal High: Current smoker Normal: Non smoker Anemia normal High: Hgb < 13 (men) N/A: Hgb >= 13 (men) Nutritional Status normal High: Alb<3.4, or prealb<15, or serum transferrin<200, or total lymphocyte count<1500 Normal: normal labs COPD normal High: dx of COPD Normal: no dx of COPD MRSA normal High: dx of MRSA or positive lab test Normal: no MRSA CKD normal High: eGFR<60 Moderate: eGFR 60-89 Normal: eGFR>90 Hx of DVT / PE normal High: dx of DVT / PE Normal: no dx of DVT / PE Narcotics Use normal High:NarxCare >=300 Moderate: 100-299 Normal: 0-99 DORIE normal High: dx of DORIE N/A: no dx of DORIE Coagulation High Risk High:PT Sec>13, or PT INR>1.3, or APTT>32.4, or Plt ct<150k Moderate: on anticoag but none of the above Normal: none Hypertension High Risk High: dx of Chronic Htn Normal: no dx of Chronic Htn CHF normal High: dx of CHF Normal: no dx of CHF Coagulation Coag/Hyper Coag Labs Latest Ref Rng & Units 08/13/2018 08/20/2018 08/27/2018 PTT 23.0 - 32.4 sec - - - PT INR 0.9 - 1.3 1.2 1.1 1.6(H) PT SEC 9.7 - 13.0 sec 12.4 11.3 16.0(H) Hemoglobin and Platelets Latest Ref Rng & Units 08/27/2018 09/11/2018 02/06/2023 HEMOGLOBIN 13.0 - 17.0 g/dL 10.2(L) 11.1(L) 15.2 HEMOGLOBIN TOTAL, WHOLE BLOOD 13.0 - 17.0 g/dL - - - PLATELETS 150 - 400 k/uL 557(H) 253 152 Last BP 02/08/23 : 132/84 02/06/23 : 123/84 01/11/23 : 110/64 Hg A1C: No results found for: HBA1C Hg/Hct: Hematocrit (%) Date Value 02/06/2023 46.7 09/11/2018 37.2 08/27/2018 33.2 08/20/2018 27.0 Alcohol Hx: Alcohol Use: Approximately 3.6 oz/week [which includes 6 Glasses of Wine (5oz) per week] (social) DMARDS: no DMARD medications Candidacy for outpatient arthroplasty: yes Assessment: Encounter Diagnosis ICD-10-CM 1. S/P right rotator cuff repair Z98.890 CONSULT TO PHYSICAL THERAPY Large Joint Arthro/Inj: R shoulder joint 2. 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 He has done a course of physical therapy that had to be prematurely stopped due to increased pain. He has minimal arthritis and good strength overall in his right shoulder. Given his age, attritional nature of the tear, multiple comorbidities including prior open heart surgery I would be inclined to maximize nonoperative treatment. He never had a cortisone injection we discussed to try cortisone injection and a repeat course of physical therapy for the next 2 to 3 months. If he does not respond to this approach, he will be a candidate for surgery. I briefly discussed a revision repair versus reverse total shoulder arthroplasty and I told him that at his age, shoulder arthroplasty would be more predictable. We will get a give him a chance with nonoperative treatment and see how he does and is can reach out to my office if he continues to have symptoms. All questions answered. If any more questions or concerns arise, they should not hesitate to call. Large Joint Arthro/Inj: R shoulder joint Informed Consent Consent Obtained: Verbal [place] Protocol A moment to CARE was completed. SIGN IN Sign in communication not applicable due to emergent procedure. Personnel directly involved with the procedure wore the appropriate PPE. Special Equipment: Yes Patient/Surrogate Stated/Verified: Patient name, Date of , Relevant allergies and Intended procedure TIME OUT Intended patient and procedure match the source document(s). Consent documented and matches the intended procedure. Relevant labs, photos, and/or imaging studies have been reviewed. Correct side/site marked and visible. Medications required for procedure verified. Fire risk assessed and interventions discussed. Implant(s) inserted. Correct implant(s) confirmed including size and side. 07/08/2023 11:02 AM The procedure site was prepped in the usual sterile fashion. Site: R shoulder joint Medications: 80 mg triamcinolone acetonide 40 mg/mL Anesthetics: 8 mL lidocaine (PF) 10 mg/mL (1 %) Outcome: Tolerated well, no immediate complications Post-injection instructions were reviewed with the patient and the patient voiced understanding of these instructions. SIGN OUT All instruments, equipment, possible retained foreign bodies accounted for. Reji Weems M.D. M.M.Sc. Shoulder and Elbow Surgeon Orthopaedic Surgery Department [place], [place] [address] Tell: [phone] Appt:[phone] 07/08/2023 10:14 AM CC: documented in this encounter [facility] 06-04-2023 Miscellaneous Notes June 04, 2023 Patient Contact Number: [phone] Patient last seen within the last year: Yes Date of last office visit: 02/08/2023 Reason For Call: Medication Issue/Question:Patient calling to ask if it okay to stop Asprin 5 days prior to MRI with injection scheduled for 06/09 Physician: Juan F Portillo MD Patient was informed that non-urgent calls may be returned within the next three business days. Yes Bekah Albarran documented in this encounter [facility] 03-13-2023 Miscellaneous Notes I called spoke with patient, and informed orders for labs and echo are now in chart so can schedule to have done. Roselyn Orders for labs and echo placed Clarisse Gee APRN.CNP March 12, 2023 Patient Contact Number: [phone] Patient last seen within the last year: Yes Last office visit: 02-08-23 with Mee Taylor Next appt: 08-13-23 with Abeba Keen Reason For Call: Other Issue: testing or orders? Patient called asking about testing needed because only has labs ordered. Thought was supposed to get something in addition. Asking so can schedule Physician: Juan F Portillo MD Patient was informed that non-urgent calls may be returned within the next three business days. Yes Roselyn Aden documented in this encounter [facility] 02-08-2023 Instructions Jamarcus Watts, Ice Maker - 02/08/2023 2:15 PM EDT Images from the original note were not included. AEROBIC EXERCISE PLAN: *Engage in leisure physical activity (e.g., very light walking, etc.) when possible/permitted all days of the week. *Minimize time spent sedentary even on days that you exercise. Aim to accumulate physical activity throughout your day. This can be in as little as 5 minute bouts of casual walking once per hour. *Exercise can provide you with a dose-benefit response. This means the more consistent you can be with performing intentional exercise at a safe and appropriate intensity, the more likely you are to see the benefits of exercise training for managing your cardiovascular risk factors. *DO NOT engage in maximal intensity exercise and/or other forms of high intensity physical exertion. NO high intensity interval training. *Participating in high/severe intensity physical exertion regardless of whether it occurs in a gym or elsewhere will commonly result in feeling the need to rest/recover for up to 3-4 days before feeling energy and physical endurance levels return to a higher baseline. *Consistently drink water throughout the day in small sips/quantities. Not drinking enough water throughout the day will increase the likelihood your heart rate will rise to levels higher than typical while at rest as well as when changing body positions from sitting to standing. *Do not gulp or chug water. Aerobic Exercise Training: -Choose a time of day (whatever your preference) where you will be able to consistently exercise on a regular basis. Controlling this factor (along with the others) will help you better understand how your body responds to exercise and other types of physical exertion. Subjective exercise intensity scale Rating of perceived exertion (RPE) scale (6-20): *When guiding exercise training intensities, inclusively consider heart rate (HR) zones (primary guide), workload zones, symptoms, and RPE zones. *If you need to make adjustments to the recommended exercise machine settings (noted below) in order to achieve your target HR zone this is perfectly ok. *Commercial brands include for example (other brands are available outside the ones listed below): *Smart Watch (Richmedia, Oriense, Clever Sense, etc); *POLAR chest strap (model: H10 with any POLAR wrist watch, such as the POLAR UNITE); *Garmin chest strap (model: HRM-Pro Plus with any Garmin watch, such as the VIVOSMART 5); *Desire2Learno 5 or 7 sport watch *Commercial heart rate monitors are not medical devices and the information acquired from these devices should not be used to make medical diagnostic decisions. *Do NOT monitor your HR while performing activities of daily living or other types of quick physical movements throughout your day. *If any exercise occurs outdoors, it will be more difficult to maintain consistent control of your HR response to exercise due to numerous environmental and terrain factors. *You can also expect to expend more energy when performing your exercise outdoors due the influences of numerous environmental and terrain factors. Therefore, take a more conservative approach when performing your exercise training outdoors. *Consider the timing of when you take your b-xiao therapy (TOPROL XL) relative to when you exercise, particularly as it relates to basing exercise intensity on HR training zones. *This medication can impact how high your HR rises during exercise. As best as possible, keep the time difference between when you take your b-xiao and when you exercise as consistent as possible. *Slowly drink 8-12 ounces of water or sports drink within the 30 minutes before exercise (for example, low calorie sugar-free options are Powerade zero, G2, propel fitness water, Vitamin Water, Nuun electrolyte tablets, Liquid IV, etc.). *If you begin exercise without having taken in enough fluid throughout the day, it will be easier for your body temperature to rise quickly and lead to the feeling of being overheated. *Continue to drink fluid throughout exercise and the recovery period as needed. *DO NOT drink caffeine prior to exercise. *Warm-up exercise period immediately prior to performing sessions*: DO NOT SKIP THE WARM UP EVER. The warm up should be performed on the exact piece of equipment you plan on performing your exercise training that day. Do not perform multiple warm up periods on different pieces of equipment. *Skipping the warm up will increase the likelihood you will experience an increase in symptoms during exercise. -Duration: at least 6-8 min (take longer time to warm-up as needed). -Modality: *Stationary upright cycle, resistance: none *Pedal rate: 30-35 rpm or lower -Take as much time as you need after to allow your body to get settled after changing body positions from standing to sitting. -Intensity: heart rate (HR) = 70-75 bpm and Rating of perceived exertion (RPE)= 6-8 (use the above 6-20 scale) -Treadmill: 0.0 % grade at a modest/low level pace. -Intensity: heart rate (HR) = 75-80 bpm and Rating of perceived exertion (RPE)= 6-8 (use the above 6-20 scale) *Aerobic Exercise Sessions by Week and Modality*: -Only progress to the next training block of your program if you are able to consistently perform your exercise as recommended. -If for any reason you have to miss multiple training days in succession (for example, more than 3) in a given week(s), upon resuming your exercise training it would be reasonable to briefly dial back the HR zone intensity and session duration in order to more appropriately re-introduce physical stress to your body. *For example, for 1 week, decrease the HR zone you had been previously working at prior to the time away by at least 5 bpm from both the lower and upper end of the zone. Also decrease the duration of your training sessions by at least 5 min or more. TRAINING BLOCK #1: Week 1-8 or longer (this is the minimum number of weeks. If necessary, make this training block as long as you need): Mode: Stationary upright cycle (NO high intensity interval training): -HR = as tolerated, up to 85-90 bpm (primary guide) -Pedal rate = 55-60 rpm. -Mccracken = 45-55 . (Make minor adjustments to wheel resistance settings in order to achieve target HR zone, as needed) -Rating of perceived exertion (RPE) = 10-12 (refer to above 6-20 scale) Or, Mode: Treadmill (no jogging; no sprinting; NO high intensity interval training): -HR = as tolerated, up to 90-95 bpm (primary guide) -Speed = 2.8 mph, Grade = 0.0 to 1.0 % grade up to (as tolerated) Speed = 3.1 mph, Grade = 0.0 to 1.0 % grade. (Make minor adjustments to achieve target HR zone, as needed) -Rating of perceived exertion (RPE) = 10-12 (refer to above 6-20 scale) Frequency per week: -Daily Weeks 1-4: Total minutes per day (not including warm-up and cool-down time): -as tolerated, up to 20 min (do not exceed time even if you feel the urge to do so) *As tolerated, your exercise can be performed as consecutive minutes. If needed, it is ok if you stop exercise early and begin the active cool-down period. Weeks 5-8: Total minutes per day (not including warm-up and cool-down time): -as tolerated, up to 25 min (do not exceed time even if you feel the urge to do so) *As tolerated, your exercise can be performed as consecutive minutes. If needed, it is ok if you stop exercise early and begin the active cool-down period. -Only progress to the next training block of your program if you are able to consistently perform your exercise as recommended. -If for any reason you have to miss multiple training days in succession (for example, more than 3) in a given week(s), upon resuming your exercise training it would be reasonable to briefly dial back the HR zone intensity and session duration in order to more appropriately re-introduce physical stress to your body. *For example, for 1 week, decrease the HR zone you had been previously working at prior to the time away by at least 5 bpm from both the lower and upper end of the zone. Also decrease the duration of your training sessions by at least 5 min or more. TRAINING BLOCK #2: Week 9-16 or longer (this is the minimum number of weeks. If necessary, make this training block as long as you need): Mode: Stationary upright cycle (NO high intensity interval training): -HR = as tolerated, up to 90-95 bpm (primary guide) -Pedal rate = 55-60 rpm. -Mccracken = 50-60. (Make minor adjustments to wheel resistance settings in order to achieve target HR zone, as needed) -Rating of perceived exertion (RPE) = 11-13 (refer to above 6-20 scale) Or, Mode: Treadmill (no jogging; no sprinting; NO high intensity interval training): -HR = as tolerated, up to 95-100 bpm (primary guide) -Speed = 3.0 mph, Grade = 0.0 to 1.0 % grade up to (as tolerated) Speed = 3.3 mph, Grade = 0.0 to 1.0 % grade. (Make minor adjustments to achieve target HR zone, as needed) -Rating of perceived exertion (RPE) = 11-13 (refer to above 6-20 scale) Frequency per week: -Daily Weeks 9-12: Total minutes per day (not including warm-up and cool-down time): -as tolerated, up to 25 min (do not exceed time even if you feel the urge to do so) *As tolerated, your exercise can be performed as consecutive minutes. If needed, it is ok if you stop exercise early and begin the active cool-down period. Weeks 13-16: Total minutes per day (not including warm-up and cool-down time): -as tolerated, up to 30 min (do not exceed time even if you feel the urge to do so) *As tolerated, your exercise can be performed as consecutive minutes. If needed, it is ok if you stop exercise early and begin the active cool-down period. -Only progress to the next training block of your program if you are able to consistently perform your exercise as recommended. -If for any reason you have to miss multiple training days in succession (for example, more than 3) in a given week(s), upon resuming your exercise training it would be reasonable to briefly dial back the HR zone intensity and session duration in order to more appropriately re-introduce physical stress to your body. *For example, for 1 week, decrease the HR zone you had been previously working at prior to the time away by at least 5 bpm from both the lower and upper end of the zone. Also decrease the duration of your training sessions by at least 5 min or more. TRAINING BLOCK #3: Week 17-24 or longer (this is the minimum number of weeks. If necessary, make this training block as long as you need): Mode: Stationary upright cycle (NO high intensity interval training): -HR = as tolerated, up to 95-100 bpm (primary guide) -Pedal rate = 55-60 rpm. -Mccracken = 55-65. (Make minor adjustments to wheel resistance settings in order to achieve target HR zone, as needed) -Rating of perceived exertion (RPE) = 12-14 (refer to above 6-20 scale) Or, Mode: Treadmill (no jogging; no sprinting; NO high intensity interval training): -HR = as tolerated, up to 100-105 bpm (primary guide) -Speed = 3.0 mph, Grade = 0.0 to 2.0 % grade up to (as tolerated) Speed = 3.3 mph, Grade = 0.0 to 2.0 % grade. (Make minor adjustments to achieve target HR zone, as needed) -Rating of perceived exertion (RPE) = 12-14 (refer to above 6-20 scale) Frequency per week: -Daily Weeks 17-20: Total minutes per day (not including warm-up and cool-down time): -as tolerated, up to 30 min (do not exceed time even if you feel the urge to do so) *As tolerated, your exercise can be performed as consecutive minutes. If needed, it is ok if you stop exercise early and begin the active cool-down period. Weeks 21-24: Total minutes per day (not including warm-up and cool-down time): -as tolerated, up to 35 min (do not exceed time even if you feel the urge to do so) *As tolerated, your exercise can be performed as consecutive minutes. If needed, it is ok if you stop exercise early and begin the active cool-down period. -Only progress to the next training block of your program if you are able to consistently perform your exercise as recommended. -If for any reason you have to miss multiple training days in succession (for example, more than 3) in a given week(s), upon resuming your exercise training it would be reasonable to briefly dial back the HR zone intensity and session duration in order to more appropriately re-introduce physical stress to your body. *For example, for 1 week, decrease the HR zone you had been previously working at prior to the time away by at least 5 bpm from both the lower and upper end of the zone. Also decrease the duration of your training sessions by at least 5 min or more. TRAINING BLOCK #4: Week 25-32 or longer (this is the minimum number of weeks. If necessary, make this training block as long as you need): Mode: Stationary upright cycle (NO high intensity interval training): -HR = as tolerated, up to 100-105 bpm (primary guide) -Pedal rate = 55-60 rpm. -Mccracken = 60-70. (Make minor adjustments to wheel resistance settings in order to achieve target HR zone, as needed) -Rating of perceived exertion (RPE) = 12-14 (refer to above 6-20 scale) Or, Mode: Treadmill (no jogging; no sprinting; NO high intensity interval training): -HR = as tolerated, up to 105-110 bpm (primary guide) -Speed = 3.2 mph, Grade = 0.0 to 2.0 % grade up to (as tolerated) Speed = 3.5 mph, Grade = 0.0 to 2.0 % grade. (Make minor adjustments to achieve target HR zone, as needed) -Rating of perceived exertion (RPE) = 12-14 (refer to above 6-20 scale) Frequency per week: -Daily Weeks -28: Total minutes per day (not including warm-up and cool-down time): -as tolerated, up to 35 min (do not exceed time even if you feel the urge to do so) *As tolerated, your exercise can be performed as consecutive minutes. If needed, it is ok if you stop exercise early and begin the active cool-down period. Weeks -32: Total minutes per day (not including warm-up and cool-down time): -as tolerated, up to 40 min (do not exceed time even if you feel the urge to do so) *As tolerated, your exercise can be performed as consecutive minutes. If needed, it is ok if you stop exercise early and begin the active cool-down period. -Only progress to the next training block of your program if you are able to consistently perform your exercise as recommended. -If for any reason you have to miss multiple training days in succession (for example, more than 3) in a given week(s), upon resuming your exercise training it would be reasonable to briefly dial back the HR zone intensity and session duration in order to more appropriately re-introduce physical stress to your body. *For example, for 1 week, decrease the HR zone you had been previously working at prior to the time away by at least 5 bpm from both the lower and upper end of the zone. Also decrease the duration of your training sessions by at least 5 min or more. TRAINING BLOCK #5: Week 33-40, and beyond (continue training at this level or at previous intensities long-term): Mode: Stationary upright cycle (NO high intensity interval training): -HR = as tolerated, up to 105-110 bpm (primary guide) -Pedal rate = 55-60 rpm. -Mccracken = 65-75. (Make minor adjustments to wheel resistance settings in order to achieve target HR zone, as needed) -Rating of perceived exertion (RPE) = 12-14 (refer to above 6-20 scale) Or, Mode: Treadmill (no jogging; no sprinting; NO high intensity interval training): -HR = as tolerated, up to 110-115 bpm (primary guide) -Speed = 3.2 mph, Grade = 0.0 to 3.0 % grade up to (as tolerated) Speed = 3.5 mph, Grade = 0.0 to 3.0 % grade. (Make minor adjustments to achieve target HR zone, as needed) -Rating of perceived exertion (RPE) = 12-14 (refer to above 6-20 scale) Frequency per week: -Daily Weeks 33-36: Total minutes per day (not including warm-up and cool-down time): -as tolerated, up to 40 min (do not exceed time even if you feel the urge to do so) *As tolerated, your exercise can be performed as consecutive minutes. If needed, it is ok if you stop exercise early and begin the active cool-down period. Weeks 37-40, and beyond (continue training at this level or at previous intensities long-term): Total minutes per day (not including warm-up and cool-down time): -as tolerated, up to 45-50 min (do not exceed time even if you feel the urge to do so) *As tolerated, your exercise can be performed as consecutive minutes. If needed, it is ok if you stop exercise early and begin the active cool-down period. -If for any reason you have to miss multiple training days in succession (for example, more than 3) in a given week(s), upon resuming your exercise training it would be reasonable to briefly dial back the HR zone intensity and session duration in order to more appropriately re-introduce physical stress to your body. *For example, for 1 week, decrease the HR zone you had been previously working at prior to the time away by at least 5 bpm from both the lower and upper end of the zone. Also decrease the duration of your training sessions by at least 5 min or more. *Exercise cool-down period for exercise sessions*: DO NOT SKIP THE COOL DOWN PERIOD EVER. *Skipping the cool down will increase the likelihood you will experience an increase and persistence of symptoms following exercise. *Duration: 6-8 min (take longer time to cool-down as needed. This period should feel very easy, RPE = 6 to 8, refer to above 6-20 scale). -Modality: *Stationary upright cycle, resistance: none *Pedal rate: 30-35 rpm or lower -Take as much time as you need after to allow your body to get settled after changing body positions from sitting to standing. -Intensity: Rating of perceived exertion (RPE)= 6-8 (use the above 6-20 scale) -Treadmill: 0.0 % grade at a modest/low level pace. -Intensity: Rating of perceived exertion (RPE)= 6-8 (use the above 6-20 scale) Flexibility/Stretching Components *At least 4 days per week engage in flexibility and stretching movements for upper and lower body limbs. *For your lower body, focus on stretching and/or foam rolling your hip flexors, extensors, and abductors (outside of hips) to help prevent the risk of developing IT band syndrome. *The intensity of stretching movements should be done to point of a feeling tightness or slight discomfort. *Attempt to hold stretch movements for 15-20 seconds at time. Try to do 3-4 sets of stretching for each chosen limb. *Hold your stretches in-place and avoid bouncing back and forth movements. Exercise and General Precautions: *Consistently drink water throughout the day in small sips/quantities to help your symptoms when standing (evidence-based research: Katherin C, Isidro VE, Yasir LJ, et al. Water drinking acutely improves orthostatic tolerance in healthy subjects. Circulation. 2002;106(22):6635-8324). Do not gulp or chug water. Slowly drink 8 ounces of water or sports drink 30 minutes before exercise (for example, low calorie options are Powerade zero, G2, propel fitness water, Vitamin Water, Nuun electrolyte tablets, Liquid IV, etc.). *Perform above activity as outlined and tolerated while staying within respective training zones. *Remember to include at least 6-8 minutes to warm up (RPE = 6-8; use above 6-20 scale) *Remember to include at least 6-8 minutes to cool down (RPE = 6-8; use above 6-20 scale) *Remember to properly hydrate (drink water) within the 30 min prior to exercise, during exercise, as well as during your recovery. *Lastly, remember to take medications as prescribed by Primary Care Provider and/or other Caregivers. *Use of heart rate monitors during exercise are helpful to maintain and monitor exercise intensity based on the target heart rate ranges listed above. *Commercial brands include for example: *Smart Watch (Richmedia, Oriense, Clever Sense, etc); *POLAR chest strap (model: H10 with any POLAR wrist watch, such as the POLAR UNITE); *Garmin chest strap (model: HRM-Pro Plus with any Garmin watch, such as the NaymitART 5); *Desire2Learno 5 or 7 sport watch *Commercial heart rate monitors are not medical devices and the information acquired from these devices should not be used to make medical diagnostic decisions. *Do NOT monitor your HR while performing activities of daily living or other types of quick physical movements throughout your day. *If necessary/needed, keep a brief exercise log for self-management (free apps such as Gift Pinpoint my Walk or [email or web address] Pal or on paper). *Set a hard (upper) time limitation on how much time you will spend on each exercise session so that fitting/dedicating time for exercise does not become stressful and a burden. Evidence Based Guidelines: Hanssen H, Leslie H, Dejesse A, et al. Personalized exercise prescription in the prevention and treatment of arterial hypertension: a Consensus Document from the Association of Preventive Cardiology (EAPC) and the ESC [place] on Hypertension. Eur J Prev Cardiol. 2021;29(1):205-215. Fady M, Janet A, Chloe U, et al. Secondary prevention through comprehensive cardiovascular rehabilitation: From knowledge to implementation. 2020 update. A position paper from the Secondary Prevention and Rehabilitation Section of the Association of Preventive Cardiology. Journal of Preventive Cardiology. 202;28(5):460-495. La POLO, Nito RP, Bernard RM, et al. The Physical Activity Guidelines for Americans. CARLOS ENRIQUE. 2018;320(19):0640-8999. General Weight Management Recommendations: *I recommend aiming to lose approximately 0.5 lb per week for the next 3 months in order to achieve a body weight of 178 lbs. *Mediterranean style diet is recommended. Take our quiz to see how compliant you are with the Mediterranean style diet: [email or web address] *When eating carbohydrates, look for low glycemic index foods (<55). *For a detailed and individualized dietary plan, I recommend making a visit with the [facility] Registered Dieticians. FOLLOW UP *Continue routine follow up with your referring provider, Dr. Portillo, for ongoing/additional discussions regarding other aspects of your heart care plan. *As needed, annual in-office visit to [facility]. This should include exercise stress testing and updates to the exercise prescription. *As needed, Virtual Visit (Visit [email or web address]. Questions? Contact technical support at [phone]) in 6-8 months for follow up discussions regarding progress made with your exercise plan. *If you would like more information on cardiac rehabilitation, please visit our dedicated [facility] web-page aimed at providing evidence-based information on heart health at the following, [email or web address]. Thank you for your visit with us today in [facility]. Jamarcus Watts, PhD Director, Cardiac Rehabilitation Staff, Section of Preventive Cardiology & Rehabilitation Heart and V[facility] [place] [facility] [address] [place] [address] Office: [phone] Appointment Desk: [phone] option #3 documented in this encounter [facility] 02-08-2023 History of Present illness Narrative Images from the original note were not included. Heart [facility] V[facility] [place] [facility] Department of Cardiovascular Medicine SECTION OF PREVENTIVE CARDIOLOGY 02/08/2023 Wally Barrow CHIEF COMPLAINT Mr. Wally Barrow is a 77 year old White male seen today. Patient presents with: Exercise Prescription PAST MEDICAL HISTORY Diagnosis Date Aortic insufficiency Ascending aortic aneurysm (HCC) Dilated aortic root (HCC) History of GI bleed history of bleeding ulcer HLD (hyperlipidemia) Hypertension 11/25/1989 Mitral insufficiency Paroxysmal atrial fibrillation (HCC) 08/15/2018 Tricuspid insufficiency CAD EVENTS; Cath: mild <30%: Yes 06/02/18 PVD EVENTS: Acending Aorta Repair: Yes 08/12/18 CVD EVENTS: None Ejection Fraction: Normal (>50%) CURRENT CARDIOVASCULAR SYMPTOMS: Intermittent Claudication: No Chest Pain: Two years ago Pt was laying on the floor reaching for something and felt a sharp, right sided chest pain. It is a needle like pain that comes and goes. Discomfort has since spread. He now has superficial point tenderness on his right side and a deeper pain beneath his right chest that happens at random. He occasionally has twinges on the left side. No symptoms with exertion. Shortness of Breath with Exertion:Seldom, about 3 weeks ago was carrying 50 lbs of sand and was feeling out of breath after walking about 50 yards. Lightheadedness/dizziness: Pt reports having dizziness/lightheadedness that is present most of the time. Symptoms have happened for 2+ years (before valve surgery) and are more frequent. No concern for falling. It happens with sitting or walking. Palpitations: Will feel some strange beats, but nothing specific. Does have PVCs and did have post op PAF. CURRENT OUTPATIENT MEDICATIONS: Current Outpatient Medications Medication Sig OTC PRODUCT once daily. OTC Force Factor take 3 tablet once per day ul-[id number]-N-theanine-herb no.310 (AIRBORNE EVERYDAY STRESS AWAY) 1,000 mg-200 mg-360 mg pwpk Take by mouth. acetaminophen (TYLENOL) 325 mg tablet Take 650 mg by mouth as needed for pain. sodium chloride (SALINE MIST NASAL) Use in the nose. hydroCHLOROthiazide (HYDRODIURIL, ESIDRIX) 25 mg tablet Take 1 tablet by mouth once daily. irbesartan (AVAPRO) 300 mg tablet Take 1 tablet by mouth daily at bedtime. metoprolol succinate ER (TOPROL XL) 25 mg 24 hr tablet Take 1 tablet by mouth every evening. azithromycin (ZITHROMAX) 500 mg tablet Take 1 tablet by mouth once daily. Take one tablet 60 minutes prior to procedure. omega 2-rnb-kce-fish oil (FISH OIL) 900-1,400 mg cpDR Take 1,400 mg by mouth once daily. multivitamin tablet Take 1 tablet by mouth once daily. (Patient taking differently: Take by mouth twice daily. Pt takes 1 capsule by mouth twice per day) olopatadine (PATADAY TWICE DAILY RELIEF) 0.1 % ophthalmic solution Use 1 Drop in both eyes twice daily. iron bisgly,ps-FA-B-C#12-succ 65 mg-65 mg -1,000 mcg (24) tab Take 65 mg by mouth once daily. calcium citrate/vitamin D3 (CALCIUM CITRATE + ORAL) Take by mouth twice daily. Pt takes 2 chewables by mouth twice per day. uo-oe-vcbU-ejyZt-Dtx-[id number] 334-1.7 mg chew Take 1 tablet by mouth once daily. tolnaftate (FORMULA 3 TOPICAL) Apply 1 application to affected area once daily. cyanocobalamin, vitamin B-12, (VITAMIN B-12 SUBLINGUAL) Dissolve 1 Dose under the tongue once daily. OTC PRODUCT 0.9% NaCl Sinus Rinse aspirin 81 mg chewable tablet Take 1 tablet by mouth once daily. Cholecalciferol, Vitamin D3, 50 mcg (2,000 unit) cap Take 1,000 Units by mouth twice daily. ubidecarenone/vitamin E mixed (COQ10 SG 100 ORAL) Take 1 capsule by mouth once daily. psyllium husk, bulk, 100 % powd 1 teaspoonful twice daily. Current Facility-Administered Medications Medication Dose Route Frequency perflutren lipid microspheres 1.3 mL in NaCl (PF) 0.9% 10 mL injection (DEFINITY) INTRAVENOUS DIRECTED PRN sodium chloride 0.9 % (flush) 10 mL (BD POSIFLUSH) 10 mL INTRAVENOUS DIRECTED PRN ALLERGIES ALLERGIES Allergen Reactions Lisinopril Cough PAST FAMILY AND SOCIAL HISTORY FAMILY HISTORY Problem Relation Age of Onset Alzheimer's Disease Mother Hypertension Mother Stroke Father Cancer Father Prostate Alzheimer's Disease Sister other (Other) Sister Jeri Teran's Disease Social History Tobacco Use Smoking status: Former Packs/day: 1.50 Years: 25.00 Pack years: 37.5 Types: Cigarettes Quit date: 08/11/1990 Years since quittin.5 Smokeless tobacco: Never Tobacco comments: Quit over 30 yrs ago Vaping Use Vaping Use: Never used Alcohol use: Yes Alcohol/week: 6.0 standard drinks Types: 6 Glasses of Wine (5oz) per week Comment: social Drug use: No PATIENT ENTERED QUESTIONNAIRE SCORES PHQ-9 02/07/2023 01/09/2017 Score 2 0 ZBIGNIEW - 7 SCORES 02/07/2023 ZBIGNIEW-7 Score 2 PROMIS Global Health - (T-Scores - the mean of general population = 50. Five points is a clinically meaningful difference.) 02/07/2023 01/09/2017 Physical T-Score 47.7 54.1 Mental T-Score 45.8 50.8 LIFESTYLE: Tobacco Use: Quit 1989 with 37.5 pkyr history DIET Current Diet: Working on cutting back on red meat, working on increasing salmon. Has eliminated beer, does drink red wine about 3-4/week. Compliance: Based on review of the patient's diet history, reported compliance is Regular. Rediness for Change:Maintenance (working to prevent relapse) Barriers: none EXERCISE History: Busy with home chores up to 7500 steps daily, [place] [address] [place]. Readiness for change:Preparation (intent to change in <1 month) Access to Exercise Equipment:Treadmill and Airdyne, some resistance bands at home. Barriers: Caregiver for . CLINICAL TESTING RESULTS Lab Results: Cholesterol, Total Date Value Ref Range Status 01/31/2023 173 <200 mg/dL Final Comment: <200 mg/dL, Desirable 200-239 mg/dL, Borderline high >239 mg/dL, High Triglyceride Date Value Ref Range Status 01/31/2023 103 <150 mg/dL Final Comment: <150 mg/dL, Normal 150-199 mg/dL, Borderline high 200-499 mg/dL, High >499 mg/dL, Very high HDL Cholesterol Date Value Ref Range Status 01/31/2023 38 (L) >39 mg/dL Final Comment: 40-59 mg/dL, Acceptable >59 mg/dL, High: Negative risk factor for coronary heart disease <40 mg/dL, Low: Positive risk factor for coronary heart disease LDL Cholesterol Date Value Ref Range Status 01/31/2023 114 (H) <100 mg/dL Final Comment: <100 mg/dL, Optimal 100-129 mg/dL, Near optimal/above optimal 130-159 mg/dL, Borderline high 160-189 mg/dL, High >189 mg/dL, Very high Secondary prevention optimal LDL Cholesterol levels are recommended to be < 70 mg/dL ALT Date Value Ref Range Status 01/31/2023 33 10 - 54 U/L Final AST Date Value Ref Range Status 01/31/2023 30 14 - 40 U/L Final Glucose Date Value Ref Range Status 02/06/2023 93 74 - 99 mg/dL Final Comment: The [place] Diabetes Association (ADA) provides guidance for cutoff values for fasting glucose and random glucose. The ADA defines fasting as no caloric intake for at least 8 hours. Fasting plasma glucose results between 100 to 125 mg/dL indicate increased risk for diabetes (prediabetes). Fasting plasma glucose results greater than or equal to 126 mg/dL meet the criteria for diagnosis of diabetes. In the absence of unequivocal hyperglycemia, results should be confirmed by repeat testing. In a patient with classic symptoms of hyperglycemia or hyperglycemic crisis, random plasma glucose results greater than or equal to 200 mg/dL meet the criteria for diagnosis of diabetes. Reference: Standards of Medical Care in Diabetes 2016, [place] Diabetes Association. Diabetes Care. 2016.39(Suppl 1). TSH Date Value Ref Range Status 01/09/2017 1.830 0.400 - 5.500 uU/mL Final CLINICAL TESTING RESULTS: Exercise Test Wally Barrow demonstrated an end exercise capacity equal to 7.8 METS (protocol, maru 5), while being free from signs and symptoms of ischemia on February 08, 2023. his end-exercise heart rate was 142 bpm (12 H since toprol XL), whereas his relative end-exercise heart rate was 99 % of his age predicted response. The exercise test was terminated because of general fatigue. Dyspnea (6, 0-10 scale). Angina was not provoked by stress Borderline ST segment changes at peak stress, resolving immediately in recovery No clinically significant arrhythmias Normal exercise blood pressure See Epic results for finalized test report and interpretations. Test Impression: Estimated end-exercise METS achieved is above the 50th percentile for age and sex. AEROBIC EXERCISE PLAN: *Engage in leisure physical activity (e.g., very light walking, etc.) when possible/permitted all days of the week. *Minimize time spent sedentary even on days that you exercise. Aim to accumulate physical activity throughout your day. This can be in as little as 5 minute bouts of casual walking once per hour. *Exercise can provide you with a dose-benefit response. This means the more consistent you can be with performing intentional exercise at a safe and appropriate intensity, the more likely you are to see the benefits of exercise training for managing your cardiovascular risk factors. *DO NOT engage in maximal intensity exercise and/or other forms of high intensity physical exertion. NO high intensity interval training. *Participating in high/severe intensity physical exertion regardless of whether it occurs in a gym or elsewhere will commonly result in feeling the need to rest/recover for up to 3-4 days before feeling energy and physical endurance levels return to a higher baseline. *Consistently drink water throughout the day in small sips/quantities. Not drinking enough water throughout the day will increase the likelihood your heart rate will rise to levels higher than typical while at rest as well as when changing body positions from sitting to standing. *Do not gulp or chug water. Aerobic Exercise Training: -Choose a time of day (whatever your preference) where you will be able to consistently exercise on a regular basis. Controlling this factor (along with the others) will help you better understand how your body responds to exercise and other types of physical exertion. Subjective exercise intensity scale Rating of perceived exertion (RPE) scale (6-20): *When guiding exercise training intensities, inclusively consider heart rate (HR) zones (primary guide), workload zones, symptoms, and RPE zones. *If you need to make adjustments to the recommended exercise machine settings (noted below) in order to achieve your target HR zone this is perfectly ok. *Commercial brands include for example (other brands are available outside the ones listed below): *Smart Watch (Richmedia, Oriense, Clever Sense, etc); *POLAR chest strap (model: H10 with any POLAR wrist watch, such as the POLAR UNITE); *Garmin chest strap (model: HRM-Pro Plus with any Garmin watch, such as the VIVOSMART 5); *Desire2Learno 5 or 7 sport watch *Commercial heart rate monitors are not medical devices and the information acquired from these devices should not be used to make medical diagnostic decisions. *Do NOT monitor your HR while performing activities of daily living or other types of quick physical movements throughout your day. *If any exercise occurs outdoors, it will be more difficult to maintain consistent control of your HR response to exercise due to numerous environmental and terrain factors. *You can also expect to expend more energy when performing your exercise outdoors due the influences of numerous environmental and terrain factors. Therefore, take a more conservative approach when performing your exercise training outdoors. *Consider the timing of when you take your b-xiao therapy (TOPROL XL) relative to when you exercise, particularly as it relates to basing exercise intensity on HR training zones. *This medication can impact how high your HR rises during exercise. As best as possible, keep the time difference between when you take your b-xiao and when you exercise as consistent as possible. *Slowly drink 8-12 ounces of water or sports drink within the 30 minutes before exercise (for example, low calorie sugar-free options are Powerade zero, G2, propel fitness water, Vitamin Water, Nuun electrolyte tablets, Liquid IV, etc.). *If you begin exercise without having taken in enough fluid throughout the day, it will be easier for your body temperature to rise quickly and lead to the feeling of being overheated. *Continue to drink fluid throughout exercise and the recovery period as needed. *DO NOT drink caffeine prior to exercise. *Warm-up exercise period immediately prior to performing sessions*: DO NOT SKIP THE WARM UP EVER. The warm up should be performed on the exact piece of equipment you plan on performing your exercise training that day. Do not perform multiple warm up periods on different pieces of equipment. *Skipping the warm up will increase the likelihood you will experience an increase in symptoms during exercise. -Duration: at least 6-8 min (take longer time to warm-up as needed). -Modality: *Stationary upright cycle, resistance: none *Pedal rate: 30-35 rpm or lower -Take as much time as you need after to allow your body to get settled after changing body positions from standing to sitting. -Intensity: heart rate (HR) = 70-75 bpm and Rating of perceived exertion (RPE)= 6-8 (use the above 6-20 scale) -Treadmill: 0.0 % grade at a modest/low level pace. -Intensity: heart rate (HR) = 75-80 bpm and Rating of perceived exertion (RPE)= 6-8 (use the above 6-20 scale) *Aerobic Exercise Sessions by Week and Modality*: -Only progress to the next training block of your program if you are able to consistently perform your exercise as recommended. -If for any reason you have to miss multiple training days in succession (for example, more than 3) in a given week(s), upon resuming your exercise training it would be reasonable to briefly dial back the HR zone intensity and session duration in order to more appropriately re-introduce physical stress to your body. *For example, for 1 week, decrease the HR zone you had been previously working at prior to the time away by at least 5 bpm from both the lower and upper end of the zone. Also decrease the duration of your training sessions by at least 5 min or more. TRAINING BLOCK #1: Week 1-8 or longer (this is the minimum number of weeks. If necessary, make this training block as long as you need): Mode: Stationary upright cycle (NO high intensity interval training): -HR = as tolerated, up to 85-90 bpm (primary guide) -Pedal rate = 55-60 rpm. -Mccracken = 45-55 . (Make minor adjustments to wheel resistance settings in order to achieve target HR zone, as needed) -Rating of perceived exertion (RPE) = 10-12 (refer to above 6-20 scale) Or, Mode: Treadmill (no jogging; no sprinting; NO high intensity interval training): -HR = as tolerated, up to 90-95 bpm (primary guide) -Speed = 2.8 mph, Grade = 0.0 to 1.0 % grade up to (as tolerated) Speed = 3.1 mph, Grade = 0.0 to 1.0 % grade. (Make minor adjustments to achieve target HR zone, as needed) -Rating of perceived exertion (RPE) = 10-12 (refer to above 6-20 scale) Frequency per week: -Daily Weeks 1-4: Total minutes per day (not including warm-up and cool-down time): -as tolerated, up to 20 min (do not exceed time even if you feel the urge to do so) *As tolerated, your exercise can be performed as consecutive minutes. If needed, it is ok if you stop exercise early and begin the active cool-down period. Weeks 5-8: Total minutes per day (not including warm-up and cool-down time): -as tolerated, up to 25 min (do not exceed time even if you feel the urge to do so) *As tolerated, your exercise can be performed as consecutive minutes. If needed, it is ok if you stop exercise early and begin the active cool-down period. -Only progress to the next training block of your program if you are able to consistently perform your exercise as recommended. -If for any reason you have to miss multiple training days in succession (for example, more than 3) in a given week(s), upon resuming your exercise training it would be reasonable to briefly dial back the HR zone intensity and session duration in order to more appropriately re-introduce physical stress to your body. *For example, for 1 week, decrease the HR zone you had been previously working at prior to the time away by at least 5 bpm from both the lower and upper end of the zone. Also decrease the duration of your training sessions by at least 5 min or more. TRAINING BLOCK #2: Week 9-16 or longer (this is the minimum number of weeks. If necessary, make this training block as long as you need): Mode: Stationary upright cycle (NO high intensity interval training): -HR = as tolerated, up to 90-95 bpm (primary guide) -Pedal rate = 55-60 rpm. -Mccracken = 50-60. (Make minor adjustments to wheel resistance settings in order to achieve target HR zone, as needed) -Rating of perceived exertion (RPE) = 11-13 (refer to above 6-20 scale) Or, Mode: Treadmill (no jogging; no sprinting; NO high intensity interval training): -HR = as tolerated, up to 95-100 bpm (primary guide) -Speed = 3.0 mph, Grade = 0.0 to 1.0 % grade up to (as tolerated) Speed = 3.3 mph, Grade = 0.0 to 1.0 % grade. (Make minor adjustments to achieve target HR zone, as needed) -Rating of perceived exertion (RPE) = 11-13 (refer to above 6-20 scale) Frequency per week: -Daily Weeks 9-12: Total minutes per day (not including warm-up and cool-down time): -as tolerated, up to 25 min (do not exceed time even if you feel the urge to do so) *As tolerated, your exercise can be performed as consecutive minutes. If needed, it is ok if you stop exercise early and begin the active cool-down period. Weeks 13-16: Total minutes per day (not including warm-up and cool-down time): -as tolerated, up to 30 min (do not exceed time even if you feel the urge to do so) *As tolerated, your exercise can be performed as consecutive minutes. If needed, it is ok if you stop exercise early and begin the active cool-down period. -Only progress to the next training block of your program if you are able to consistently perform your exercise as recommended. -If for any reason you have to miss multiple training days in succession (for example, more than 3) in a given week(s), upon resuming your exercise training it would be reasonable to briefly dial back the HR zone intensity and session duration in order to more appropriately re-introduce physical stress to your body. *For example, for 1 week, decrease the HR zone you had been previously working at prior to the time away by at least 5 bpm from both the lower and upper end of the zone. Also decrease the duration of your training sessions by at least 5 min or more. TRAINING BLOCK #3: Week 17-24 or longer (this is the minimum number of weeks. If necessary, make this training block as long as you need): Mode: Stationary upright cycle (NO high intensity interval training): -HR = as tolerated, up to 95-100 bpm (primary guide) -Pedal rate = 55-60 rpm. -Mccracken = 55-65. (Make minor adjustments to wheel resistance settings in order to achieve target HR zone, as needed) -Rating of perceived exertion (RPE) = 12-14 (refer to above 6-20 scale) Or, Mode: Treadmill (no jogging; no sprinting; NO high intensity interval training): -HR = as tolerated, up to 100-105 bpm (primary guide) -Speed = 3.0 mph, Grade = 0.0 to 2.0 % grade up to (as tolerated) Speed = 3.3 mph, Grade = 0.0 to 2.0 % grade. (Make minor adjustments to achieve target HR zone, as needed) -Rating of perceived exertion (RPE) = 12-14 (refer to above 6-20 scale) Frequency per week: -Daily Weeks 17-20: Total minutes per day (not including warm-up and cool-down time): -as tolerated, up to 30 min (do not exceed time even if you feel the urge to do so) *As tolerated, your exercise can be performed as consecutive minutes. If needed, it is ok if you stop exercise early and begin the active cool-down period. Weeks 21-24: Total minutes per day (not including warm-up and cool-down time): -as tolerated, up to 35 min (do not exceed time even if you feel the urge to do so) *As tolerated, your exercise can be performed as consecutive minutes. If needed, it is ok if you stop exercise early and begin the active cool-down period. -Only progress to the next training block of your program if you are able to consistently perform your exercise as recommended. -If for any reason you have to miss multiple training days in succession (for example, more than 3) in a given week(s), upon resuming your exercise training it would be reasonable to briefly dial back the HR zone intensity and session duration in order to more appropriately re-introduce physical stress to your body. *For example, for 1 week, decrease the HR zone you had been previously working at prior to the time away by at least 5 bpm from both the lower and upper end of the zone. Also decrease the duration of your training sessions by at least 5 min or more. TRAINING BLOCK #4: Week 25-32 or longer (this is the minimum number of weeks. If necessary, make this training block as long as you need): Mode: Stationary upright cycle (NO high intensity interval training): -HR = as tolerated, up to 100-105 bpm (primary guide) -Pedal rate = 55-60 rpm. -Mccracken = 60-70. (Make minor adjustments to wheel resistance settings in order to achieve target HR zone, as needed) -Rating of perceived exertion (RPE) = 12-14 (refer to above 6-20 scale) Or, Mode: Treadmill (no jogging; no sprinting; NO high intensity interval training): -HR = as tolerated, up to 105-110 bpm (primary guide) -Speed = 3.2 mph, Grade = 0.0 to 2.0 % grade up to (as tolerated) Speed = 3.5 mph, Grade = 0.0 to 2.0 % grade. (Make minor adjustments to achieve target HR zone, as needed) -Rating of perceived exertion (RPE) = 12-14 (refer to above 6-20 scale) Frequency per week: -Daily Weeks -28: Total minutes per day (not including warm-up and cool-down time): -as tolerated, up to 35 min (do not exceed time even if you feel the urge to do so) *As tolerated, your exercise can be performed as consecutive minutes. If needed, it is ok if you stop exercise early and begin the active cool-down period. Weeks 29-32: Total minutes per day (not including warm-up and cool-down time): -as tolerated, up to 40 min (do not exceed time even if you feel the urge to do so) *As tolerated, your exercise can be performed as consecutive minutes. If needed, it is ok if you stop exercise early and begin the active cool-down period. -Only progress to the next training block of your program if you are able to consistently perform your exercise as recommended. -If for any reason you have to miss multiple training days in succession (for example, more than 3) in a given week(s), upon resuming your exercise training it would be reasonable to briefly dial back the HR zone intensity and session duration in order to more appropriately re-introduce physical stress to your body. *For example, for 1 week, decrease the HR zone you had been previously working at prior to the time away by at least 5 bpm from both the lower and upper end of the zone. Also decrease the duration of your training sessions by at least 5 min or more. TRAINING BLOCK #5: Week 33-40, and beyond (continue training at this level or at previous intensities long-term): Mode: Stationary upright cycle (NO high intensity interval training): -HR = as tolerated, up to 105-110 bpm (primary guide) -Pedal rate = 55-60 rpm. -Mccracken = 65-75. (Make minor adjustments to wheel resistance settings in order to achieve target HR zone, as needed) -Rating of perceived exertion (RPE) = 12-14 (refer to above 6-20 scale) Or, Mode: Treadmill (no jogging; no sprinting; NO high intensity interval training): -HR = as tolerated, up to 110-115 bpm (primary guide) -Speed = 3.2 mph, Grade = 0.0 to 3.0 % grade up to (as tolerated) Speed = 3.5 mph, Grade = 0.0 to 3.0 % grade. (Make minor adjustments to achieve target HR zone, as needed) -Rating of perceived exertion (RPE) = 12-14 (refer to above 6-20 scale) Frequency per week: -Daily Weeks 33-36: Total minutes per day (not including warm-up and cool-down time): -as tolerated, up to 40 min (do not exceed time even if you feel the urge to do so) *As tolerated, your exercise can be performed as consecutive minutes. If needed, it is ok if you stop exercise early and begin the active cool-down period. Weeks 37-40, and beyond (continue training at this level or at previous intensities long-term): Total minutes per day (not including warm-up and cool-down time): -as tolerated, up to 45-50 min (do not exceed time even if you feel the urge to do so) *As tolerated, your exercise can be performed as consecutive minutes. If needed, it is ok if you stop exercise early and begin the active cool-down period. -If for any reason you have to miss multiple training days in succession (for example, more than 3) in a given week(s), upon resuming your exercise training it would be reasonable to briefly dial back the HR zone intensity and session duration in order to more appropriately re-introduce physical stress to your body. *For example, for 1 week, decrease the HR zone you had been previously working at prior to the time away by at least 5 bpm from both the lower and upper end of the zone. Also decrease the duration of your training sessions by at least 5 min or more. *Exercise cool-down period for exercise sessions*: DO NOT SKIP THE COOL DOWN PERIOD EVER. *Skipping the cool down will increase the likelihood you will experience an increase and persistence of symptoms following exercise. *Duration: 6-8 min (take longer time to cool-down as needed. This period should feel very easy, RPE = 6 to 8, refer to above 6-20 scale). -Modality: *Stationary upright cycle, resistance: none *Pedal rate: 30-35 rpm or lower -Take as much time as you need after to allow your body to get settled after changing body positions from sitting to standing. -Intensity: Rating of perceived exertion (RPE)= 6-8 (use the above 6-20 scale) -Treadmill: 0.0 % grade at a modest/low level pace. -Intensity: Rating of perceived exertion (RPE)= 6-8 (use the above 6-20 scale) Flexibility/Stretching Components *At least 4 days per week engage in flexibility and stretching movements for upper and lower body limbs. *For your lower body, focus on stretching and/or foam rolling your hip flexors, extensors, and abductors (outside of hips) to help prevent the risk of developing IT band syndrome. *The intensity of stretching movements should be done to point of a feeling tightness or slight discomfort. *Attempt to hold stretch movements for 15-20 seconds at time. Try to do 3-4 sets of stretching for each chosen limb. *Hold your stretches in-place and avoid bouncing back and forth movements. Exercise and General Precautions: *Consistently drink water throughout the day in small sips/quantities to help your symptoms when standing (evidence-based research: Katherin C, Isidro VE, Yasir LJ, et al. Water drinking acutely improves orthostatic tolerance in healthy subjects. Circulation. 2002;106(22):7764-2225). Do not gulp or chug water. Slowly drink 8 ounces of water or sports drink 30 minutes before exercise (for example, low calorie options are Powerade zero, G2, propel fitness water, Vitamin Water, Nuun electrolyte tablets, Liquid IV, etc.). *Perform above activity as outlined and tolerated while staying within respective training zones. *Remember to include at least 6-8 minutes to warm up (RPE = 6-8; use above 6-20 scale) *Remember to include at least 6-8 minutes to cool down (RPE = 6-8; use above 6-20 scale) *Remember to properly hydrate (drink water) within the 30 min prior to exercise, during exercise, as well as during your recovery. *Lastly, remember to take medications as prescribed by Primary Care Provider and/or other Caregivers. *Use of heart rate monitors during exercise are helpful to maintain and monitor exercise intensity based on the target heart rate ranges listed above. *Commercial brands include for example: *QMCODES Watch (Richmedia, Oriense, Clever Sense, etc); *POLAR chest strap (model: H10 with any POLAR wrist watch, such as the POLAR UNITE); *Garmin chest strap (model: HRM-Pro Plus with any Garmin watch, such as the [employer] 5); *Lulu*s Fashion Lounge 5 or 7 sport watch *Commercial heart rate monitors are not medical devices and the information acquired from these devices should not be used to make medical diagnostic decisions. *Do NOT monitor your HR while performing activities of daily living or other types of quick physical movements throughout your day. *If necessary/needed, keep a brief exercise log for self-management (free apps such as Map my Walk or [employer] or on paper). *Set a hard (upper) time limitation on how much time you will spend on each exercise session so that fitting/dedicating time for exercise does not become stressful and a burden. Evidence Based Guidelines: Cody H, Jen H, Silverio Pak, et al. Personalized exercise prescription in the prevention and treatment of arterial hypertension: a Consensus Document from the Association of Preventive Cardiology (EAPC) and the ESC [place] on Hypertension. Eur J Prev Cardiol. 2021;29(1):205-215. Fady M, Janet A, Chloe U, et al. Secondary prevention through comprehensive cardiovascular rehabilitation: From knowledge to implementation. 2020 update. A position paper from the Secondary Prevention and Rehabilitation Section of the Association of Preventive Cardiology. Journal of Preventive Cardiology. 2020;28(5):460-495. La KL, Nito RP, Bernard RM, et al. The Physical Activity Guidelines for Americans. CARLOS ENRIQUE. 2018;320(19):7578-9976. General Weight Management Recommendations: *I recommend aiming to lose approximately 0.5 lb per week for the next 3 months in order to achieve a body weight of 178 lbs. *Mediterranean style diet is recommended. Take our quiz to see how compliant you are with the Mediterranean style diet: [email or web address] *When eating carbohydrates, look for low glycemic index foods (<55). *For a detailed and individualized dietary plan, I recommend making a visit with the [facility] Registered Dieticians. Other relevant recommendations/instructions given to Wally Barrow: Wally Barrow has been educated on issues and indices which are relevant to his particular history and findings. A letter will also be sent to the referring provider discussing the findings of this visit. SUMMARY Mr. Barrow is a 77 year old male who was referred by Dr. 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 Last echo 08/21/22 with LVEF = 58%, no AI with peak gradient of 20 mmHG and mean of 11 mmHG, 1+ MR, 1+TR. Wally Barrow also demonstrates a significant medical history for: PAST MEDICAL HISTORY Diagnosis Date Aortic insufficiency Ascending aortic aneurysm (HCC) Dilated aortic root (HCC) History of GI bleed history of bleeding ulcer HLD (hyperlipidemia) Hypertension 11/25/1989 Mitral insufficiency Paroxysmal atrial fibrillation (HCC) 08/15/2018 Tricuspid insufficiency PAST SURGICAL HISTORY Procedure Laterality Date CHOLECYSTECTOMY HX with concurrent umbilical hernia repair HAND SURGERY HX Right piece of bone removed and tendon repair for arthritis KNEE ARTHROSCOPY Right fluid removed SHOULDER SURGERY HX Bilateral rotator cuff SHX AORTIC VALVE REPLACEMENT 08/12/2018 SINUS SURGERY HX Wally Barrow reports no recent history of formal structured aerobic exercise. Results from Wally Barrow's graded exercise test suggest they provided an adequate effort and demonstrate an estimated end-exercise METS above the 50th percentile for age and sex. Discussed the benefits of regular exercise, options for exercise, and strategies to achieve long-term adherence to this program. Wally Barrow was instructed on monitoring his target heart rate range and to use the RPE scale to guide intensity/progression of exercise. Above exercise guidelines were developed based on Wally Barrow's graded exercise test results, patient interests and goals, and comorbidities. Wally Barrow agrees to begin the exercise prescription as outlined in the chart note. Risks, benefits and alternative options were discussed and a copy of the exercise prescription was provided to Wally Barrow. FOLLOW UP *Continue routine follow up with your referring provider, Dr. Portillo, for ongoing/additional discussions regarding other aspects of your heart care plan. *As needed, annual in-office visit to [facility]. This should include exercise stress testing and updates to the exercise prescription. *As needed, Virtual Visit (Visit [email or web address]. Questions? Contact technical support at [phone]) in 6-8 months for follow up discussions regarding progress made with your exercise plan. *If you would like more information on cardiac rehabilitation, please visit our dedicated [facility] web-page aimed at providing evidence-based information on heart health at the following, [email or web address]. Thank you for your visit with us today in [facility]. Jamarcus Watts, PhD Chief Complaint: Patient presents with: Exercise Prescription PHYSICAL EXAM: BP 132/84 Pulse 66 Ht 177.8 cm (5' 10 ) Wt 83.5 kg (184 lb) BMI 26.40 kg/m Heart sounds: S1/S2, RRR, no murmurs Lung sounds: CTA bilaterally. Carotids: +2 pulses bilaterally, no bruit. Extremities: No edema, +2 DP pulses ASSESSMENT: ok to proceed with stress test for exercise guidelines PLAN The results of this assessment were discussed with the patient. We have mutually agreed upon the following plans and goals: Exercise and lifestyle guidance as above per tilesetter. I have reviewed the documentation obtained and documented by the EP and have reviewed and updated the problem list as appropriate. I have personally performed a face to face assessment of the patient and have personally participated in the [place] components. I have discussed the case and management of the patient's care. Hannah Taylor APRN.[facility] PATIENT EDUCATION Topic: Exercise Instruction Provided To: Patient Discipline: EP Instructed By: Jamarcus Watts, PhD Motivation to Learn: Eager Family/SO Support: High Cognitive Ability: Alert/Oriented Learning Preference: Individual Instructions Barriers: None Diagnosis: Primary Prevention Lifestyle Changes: Exercise Understanding: Verbalize Understanding Follow up: Complete Methods of Instruction: Verbal instruction and/or handouts. documented in this encounter [facility] 02-06-2023 History of Present illness Narrative Images from the original note were not included. Heart, Vascular, and Thoracic [place] [facility] Department of Cardiovascular Medicine SECTION OF PREVENTIVE CARDIOLOGY Wally Barrow 02/05/2023 CHIEF COMPLAINT: Patient presents with: Follow Up HISTORY OF PRESENT CARDIOVASCULAR ILLNESS: Wally Barrow is a 77 year old male with a PMH significant for hypertension, aortic dilatation as well as severe aortic insufficiency status post AVR (Bio Bentall, #27 CE valve) and aortic root and ascending aorta replacement (28 gelweave graft) on 08/12/[address] Briggs, and postoperative atrial fibrillation. I last saw Wally Barrow on 08/15/22. During prior visits we discussed Seen by Dr. Dumont in 11/[address] Javier in EP in 06/12. Most recently in [facility] in 07/09 by Clarisse Gee. Overall he is doing well. No acute complaints. He has been hesitant to take statins in the past but is amenable to doing so, if I recommend them. Blood pressure is well controlled. After 10/13 visit he did fine. Saw Clarisse Gee in clinic about 2 months ago for sharp R sided chest pain. Had CT with PCP that did not reveal any bony abnormality. Not associated with exertion, atypical. TGs were elevated on last blood work, repeat pending today. His is having a TAVR here in 2 weeks. After 09/2020 visit saw Mee Taylor NP in follow-up in 02/13. Notes daily mild light-headedness that is not positional, does not change with exertion. Drinks significant fluid. No syncope, no heart racing. After 08/16 visit has continued to note what sounds like MSK chest pain. He had a low risk pharm spect in 12/2022. He was recently prescribed diclofenac for MSK chest pain - has not noted much difference but serum creatinine higher. Asks if I could check CBC today given he is taking iron supplementation. Upon cardiovascular review of systems the patient denies SOB, palpitations, syncope, PND , orthopnea, intermittent claudication. CURRENT MEDS: Current Outpatient Medications Medication Sig OTC PRODUCT once daily. OTC Force Factor take 3 tablet once per day fp-xy-Q-theanine-herb no.310 (AIRBORNE EVERYDAY STRESS AWAY) 1,000 mg-200 mg-360 mg pwpk Take by mouth. acetaminophen (TYLENOL) 325 mg tablet Take 650 mg by mouth. sodium chloride (SALINE MIST NASAL) Use in the nose. hydroCHLOROthiazide (HYDRODIURIL, ESIDRIX) 25 mg tablet Take 1 tablet by mouth once daily. irbesartan (AVAPRO) 300 mg tablet Take 1 tablet by mouth daily at bedtime. metoprolol succinate ER (TOPROL XL) 25 mg 24 hr tablet Take 1 tablet by mouth every evening. azithromycin (ZITHROMAX) 500 mg tablet Take 1 tablet by mouth once daily. Take one tablet 60 minutes prior to procedure. omega 3-roz-qsg-fish oil (FISH OIL) 900-1,400 mg cpDR Take 1,400 mg by mouth once daily. multivitamin tablet Take 1 tablet by mouth once daily. (Patient taking differently: Take by mouth twice daily. Pt takes 1 capsule by mouth twice per day) olopatadine (PATADAY TWICE DAILY RELIEF) 0.1 % ophthalmic solution Use 1 Drop in both eyes twice daily. iron bisgly,ps-FA-B-C#12-succ 65 mg-65 mg -1,000 mcg (24) tab Take 65 mg by mouth once daily. calcium citrate/vitamin D3 (CALCIUM CITRATE + ORAL) Take by mouth twice daily. Pt takes 2 chewables by mouth twice per day. iv contrast (will be provided with radiology test) CT Cardiac - No IV access, insert saline lock prior to the sedation, infusion, injection for imaging exam. Discontinue saline lock post exam. If Pt. has a central line or IVAD, may access for administration according to line specific nursing protocol. Once exam is complete flush line and de-access according to line specific nursing protocol in the CT contrast administration guidelines link. [id number] 334-1.7 mg chew Take 1 tablet by mouth once daily. tolnaftate (FORMULA 3 TOPICAL) Apply 1 application to affected area once daily. cyanocobalamin, vitamin B-12, (VITAMIN B-12 SUBLINGUAL) Dissolve 1 Dose under the tongue once daily. OTC PRODUCT 0.9% NaCl Sinus Rinse aspirin 81 mg chewable tablet Take 1 tablet by mouth once daily. Cholecalciferol, Vitamin D3, 50 mcg (2,000 unit) cap Take 1,000 Units by mouth twice daily. ubidecarenone/vitamin E mixed (COQ10 SG 100 ORAL) Take 1 capsule by mouth once daily. psyllium husk, bulk, 100 % powd 1 teaspoonful twice daily. Current Facility-Administered Medications Medication Dose Route Frequency perflutren lipid microspheres 1.3 mL in NaCl (PF) 0.9% 10 mL injection (DEFINITY) INTRAVENOUS DIRECTED PRN sodium chloride 0.9 % (flush) 10 mL (BD POSIFLUSH) 10 mL INTRAVENOUS DIRECTED PRN ALLERGIES: ALLERGIES Allergen Reactions Lisinopril Cough CARDIAC RISK FACTORS: History question Answer Diagnosis Date Comment Hypertension : Hypertension 11/25/1989 N/A Exercise: Three to five times per week Family History of CAD: Negative Active with housework, reaching 10,000 steps per day. Avg. Sleep Hours Per Night?: 8 STATIN INTOLERANCE: Adverse Effect History of Statin Intolerance:: No Current Statin Freq: None Intolerance to Ezetimibe: No Intolerance to Niacin: No Intolerance to Fibrates: No Intolerance to Bile Acid Sequestrants: No USE OF PCSK9 INHIBITORS: CARDIAC RISK FACTORS: History question Answer Diagnosis Date Comment Hypertension : Hypertension 11/25/1989 N/A Exercise: Three to five times per week Family History of CAD: Negative Active with housework, reaching 10,000 steps per day. Avg. Sleep Hours Per Night?: 8 STATIN INTOLERANCE: Adverse Effect History of Statin Intolerance:: No Current Statin Freq: None Intolerance to Ezetimibe: No Intolerance to Niacin: No Intolerance to Fibrates: No Intolerance to Bile Acid Sequestrants: No USE OF PCSK9 INHIBITORS: CARDIOVASCULAR DISEASE HISTORY: Valve Disease: Aortic insufficiency : History question Answer Diagnosis Date Comment Aortic valve replacement : SHX AORTIC VALVE REPLACEMENT 08/12/2018 Arrythmias: History question Answer Diagnosis Date Comment PAF : Paroxysmal atrial fibrillation (HCC) 08/15/2018 HEART FAILURE/CARDIOMYOPATHY: None RELATED DISEASE HISTORY: CURRENT MEDS: Current Outpatient Medications Medication Sig OTC PRODUCT once daily. OTC Force Factor take 3 tablet once per day ew-ds-D-theanine-herb no.310 (AIRBORNE EVERYDAY STRESS AWAY) 1,000 mg-200 mg-360 mg pwpk Take by mouth. acetaminophen (TYLENOL) 325 mg tablet Take 650 mg by mouth. sodium chloride (SALINE MIST NASAL) Use in the nose. hydroCHLOROthiazide (HYDRODIURIL, ESIDRIX) 25 mg tablet Take 1 tablet by mouth once daily. irbesartan (AVAPRO) 300 mg tablet Take 1 tablet by mouth daily at bedtime. metoprolol succinate ER (TOPROL XL) 25 mg 24 hr tablet Take 1 tablet by mouth every evening. azithromycin (ZITHROMAX) 500 mg tablet Take 1 tablet by mouth once daily. Take one tablet 60 minutes prior to procedure. omega 4-xay-iie-fish oil (FISH OIL) 900-1,400 mg cpDR Take 1,400 mg by mouth once daily. multivitamin tablet Take 1 tablet by mouth once daily. (Patient taking differently: Take by mouth twice daily. Pt takes 1 capsule by mouth twice per day) olopatadine (PATADAY TWICE DAILY RELIEF) 0.1 % ophthalmic solution Use 1 Drop in both eyes twice daily. iron bisgly,ps-FA-B-C#12-succ 65 mg-65 mg -1,000 mcg (24) tab Take 65 mg by mouth once daily. calcium citrate/vitamin D3 (CALCIUM CITRATE + ORAL) Take by mouth twice daily. Pt takes 2 chewables by mouth twice per day. iv contrast (will be provided with radiology test) CT Cardiac - No IV access, insert saline lock prior to the sedation, infusion, injection for imaging exam. Discontinue saline lock post exam. If Pt. has a central line or IVAD, may access for administration according to line specific nursing protocol. Once exam is complete flush line and de-access according to line specific nursing protocol in the CT contrast administration guidelines link. [id number] 334-1.7 mg chew Take 1 tablet by mouth once daily. tolnaftate (FORMULA 3 TOPICAL) Apply 1 application to affected area once daily. cyanocobalamin, vitamin B-12, (VITAMIN B-12 SUBLINGUAL) Dissolve 1 Dose under the tongue once daily. OTC PRODUCT 0.9% NaCl Sinus Rinse aspirin 81 mg chewable tablet Take 1 tablet by mouth once daily. Cholecalciferol, Vitamin D3, 50 mcg (2,000 unit) cap Take 1,000 Units by mouth twice daily. ubidecarenone/vitamin E mixed (COQ10 SG 100 ORAL) Take 1 capsule by mouth once daily. psyllium husk, bulk, 100 % powd 1 teaspoonful twice daily. Current Facility-Administered Medications Medication Dose Route Frequency perflutren lipid microspheres 1.3 mL in NaCl (PF) 0.9% 10 mL injection (DEFINITY) INTRAVENOUS DIRECTED PRN sodium chloride 0.9 % (flush) 10 mL (BD POSIFLUSH) 10 mL INTRAVENOUS DIRECTED PRN ALLERGIES: ALLERGIES Allergen Reactions Lisinopril Cough FAMILY AND SOCIAL HISTORY: Lifestyle Employer And Job Title: No employer specified (retired) Years Of Education Completed: 16+ years Marital Status: with 7 children Tobacco use in the last year: No Alcohol Use: Approximately 3.6 oz/week [which includes 6 Glasses of Wine (5oz) per week] (social) REVIEW OF SYSTEMS: CONSTITUTIONAL: No Changes. HEENT:Negative for frequent or significant headaches, No changes in hearing or vision, no nose bleeds or other nasal problems RESPIRATORY: Negative for cough, hemoptysis, wheezing, COPD, dyspnea or shortness of breath CARDIOVASCULAR: See HPI Otherwise not reviewed PHYSICAL EXAMINATION: Vital Signs and General Appearance BP 123/84 (BP Site: Left Arm, BP Position: Sitting, BP Cuff Size: Regular Adult) Pulse 70 Ht 177.8 cm (5' 10 ) Wt 83.5 kg (184 lb) BMI 26.40 kg/m Average Blood Pressure: No BP recorded. BMI 26.40 kg/(m^2) Well developed, well nourished, alert, active 77 year old male in no apparent distress. Eyes: Normal, PERRLA Skin: Xanthomas - none Neck: Normal, supple with full range of motion Lungs: Clear to auscultation and percussion Lower Extremities: Normal exam of the extremities Neurological:Oriented to person, place and time and No focal motor or sensory deficits Pulses: Carotid: Left: 2+, Right: 2+, Bruit: No Posterior Tibial:Right 2+, Posterior Tibial:Left 2+, Heart Sounds: S1: Normal S2: Normal S3: Absent S4: Absent Murmurs: Systolic Murmur Present: Yes Diastolic Murmur Present: No Xanthomas: No CLINICAL TESTING RESULTS: I have personally reviewed the following: Most recent ECG Tracing: (NSR at 66 bpm, left axis), (performed on 02/06/33), which I independently visualized. Most Recent TTE: (CONCLUSIONS: - Exam indication: Routine surveillance of prosthetic valve (>3yrs) - The left ventricle is normal in size. Left ventricular systolic function is normal. EF = 58 5% (2D biplane) - The right ventricle is normal in size. Right ventricular systolic function is normal. 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 There is no aortic valve regurgitation. The peak gradient is 20 mmHg, the mean gradient is 11 mmHg and the dimensionless valve index is 0.46. Prior pk/mn AV gradients were 20/11 mmHg. - Exam was compared with the prior CC echocardiographic exam performed on 05/24/2021. Similar findings. ),(performed on 08/16/2020) Other recent cardiac testing: ZioXT monitoring 2 days 15 hours monitoring Patient had a min HR of 55 bpm, max HR of 103 bpm, and avg HR of 69 bpm. Predominant underlying rhythm was Sinus Rhythm. Isolated SVEs were rare (<1.0%), and no SVE Couplets or SVE Triplets were present. Isolated VEs were rare (<1.0%), VE Couplets were rare (<1.0%), and no VE Triplets were present. Ventricular Bigeminy was present. (September 2018) SPECT MPI (2022) CONCLUSIONS: 1. SPECT Perfusion Study: Normal. 2. There is no scintigraphic evidence for inducible ischemia. 3. No evidence of scarred myocardium. 4. Left ventricle is normal in size. The left ventricle systolic function is normal. 5. Right ventricle is mildly dilated. The right ventricle systolic function is mildly decreased. 6. This is a low risk scan. Gated Stress FBP Gated Rest FBP LVEF % 78 73 LABS: Glucose (mg/dL) Date Value 01/31/2023 89 BUN (mg/dL) Date Value 01/31/2023 28 (H) Creatinine (mg/dL) Date Value 01/31/2023 1.55 (H) Sodium (mmol/L) Date Value 01/31/2023 144 Potassium (mmol/L) Date Value 01/31/2023 3.9 Chloride (mmol/L) Date Value 01/31/2023 107 (H) CO2 (mmol/L) Date Value 01/31/2023 28 Protein, Total (g/dL) Date Value 01/31/2023 7.2 Albumin (g/dL) Date Value 01/31/2023 4.5 Calcium, Total (mg/dL) Date Value 01/31/2023 10.0 Alkaline Phosphatase (U/L) Date Value 01/31/2023 72 Bilirubin, Total (mg/dL) Date Value 01/31/2023 0.5 AST (U/L) Date Value 01/31/2023 30 ALT (U/L) Date Value 01/31/2023 33 WBC (k/uL) Date Value 09/11/2018 8.68 RBC (m/uL) Date Value 09/11/2018 4.04 (L) Hemoglobin (g/dL) Date Value 09/11/2018 11.1 (L) Hematocrit (%) Date Value 09/11/2018 37.2 (L) MCV (fL) Date Value 09/11/2018 92.1 MCH (pG) Date Value 09/11/2018 27.5 MCHC (g/dL) Date Value 09/11/2018 29.8 (L) RDW-CV (%) Date Value 09/11/2018 14.0 Platelet Count (k/uL) Date Value 09/11/2018 253 MPV (fL) Date Value 09/11/2018 10.9 PT INR (no units) Date Value 08/27/2018 1.6 (H) Cholesterol, Total Date Value Ref Range Status 01/31/2023 173 <200 mg/dL Final Comment: <200 mg/dL, Desirable 200-239 mg/dL, Borderline high >239 mg/dL, High HDL Cholesterol Date Value Ref Range Status 01/31/2023 38 (L) >39 mg/dL Final Comment: 40-59 mg/dL, Acceptable >59 mg/dL, High: Negative risk factor for coronary heart disease <40 mg/dL, Low: Positive risk factor for coronary heart disease LDL Cholesterol Date Value Ref Range Status 01/31/2023 114 (H) <100 mg/dL Final Comment: <100 mg/dL, Optimal 100-129 mg/dL, Near optimal/above optimal 130-159 mg/dL, Borderline high 160-189 mg/dL, High >189 mg/dL, Very high Secondary prevention optimal LDL Cholesterol levels are recommended to be < 70 mg/dL Triglyceride Date Value Ref Range Status 01/31/2023 103 <150 mg/dL Final Comment: <150 mg/dL, Normal 150-199 mg/dL, Borderline high 200-499 mg/dL, High >499 mg/dL, Very high PATIENT ENTERED QUESTIONNAIRE SCORES PHQ-9 01/09/2017 Score 0 PROMIS Global Health - (T-Scores - the mean of general population = 50. Five points is a clinically meaningful difference.) 01/09/2017 Physical T-Score 54.1 Mental T-Score 50.8 ASSESSMENT AND PLAN: In addition to the above history and physical exam, the results of prior labs and testing, were reviewed. The following plans and goals have been established to address current medical problems and optimize control of cardiovascular risk factors to reduce the risk of future heart disease: Active Medical Problems: 1) status post AVR Status post AVR (Bio Bentall, #27 CE valve) and aortic root and ascending aorta replacement (28 gelweave graft) on 08/12/[address] Briggs. Doing well. Stable gradients (20/11mmHg as of 08/16/2022). Repeat yearly (Fall 2022.) 2) Hypertension Well controlled here today. 1) Irbesartan 300 mg daily 2) Metoprolol succinate 25 mg nightly 3) HCTZ 25 mg daily 3) Atherosclerotic cardiovascular disease risk reduction / dyslipidemia No significant coronary artery disease on preop (valve) coronary angiogram. Given he is 76 years of age, limited data about starting a statin for primary prevention with low density lipoprotein cholesterol < 100 mg/dL. Now 113 mg/dL. Will have him increase exercise and repeat in 6 months. If still > 100 mg/dL, then will start low dose statin. 4) History of post-operative paroxysmal atrial fibrillation Seen by Dr. Javier previously. No recurrence, so decision has been made to not anticoagulate, which is in line with Mr. Barrow's wishes. 5) Elevated serum creatinine Repeat basic metabolic panel ordered. May be due to NSAID, maybe fluid intake. 6) Shortness of breath / deconditioning Exercise prescription ordered. FOLLOW UP: We recommend a 6 month follow-up The medical decision making for this patient encounter was of moderate complexity I provided Wally Barrow with my contact information at this visit (or a prior visit.) This information includes my office phone number, office fax number, [employer] instructions, and my work email address. Wally Barrow was strongly encouraged to use [employer] for communication if possible, but my email address was provided if needed. Juan F Portillo MD AMBULATORY PATIENT EDUCATION Topic: Hyperlipidemia and Hypertension Instruction Provided To: Patient Barriers: None Motivation to Learn: Interested Methods of Instruction: Verbal instruction and/or handouts. Patient Leans Best By: Multiple Methods Patient Verbalized: Understanding documented in this encounter [facility] 01-11-2023 History of Present illness Narrative Images from the original note were not included. [facility] [place] [facility] Department of Cardiovascular Medicine SECTION OF PREVENTIVE CARDIOLOGY 01/11/2023 Wally Barrow CURRENT MEDS: Current Outpatient Medications Medication Sig sh-yw-B-theanine-herb no.310 (AIRBORNE EVERYDAY STRESS AWAY) 1,000 mg-200 mg-360 mg pwpk Take by mouth. acetaminophen (TYLENOL) 325 mg tablet Take 650 mg by mouth. sodium chloride (SALINE MIST NASAL) Use in the nose. hydroCHLOROthiazide (HYDRODIURIL, ESIDRIX) 25 mg tablet Take 1 tablet by mouth once daily. irbesartan (AVAPRO) 300 mg tablet Take 1 tablet by mouth daily at bedtime. metoprolol succinate ER (TOPROL XL) 25 mg 24 hr tablet Take 1 tablet by mouth every evening. azithromycin (ZITHROMAX) 500 mg tablet Take 1 tablet by mouth once daily. Take one tablet 60 minutes prior to procedure. omega 5-rga-dpg-fish oil (FISH OIL) 900-1,400 mg cpDR Take 1,400 mg by mouth once daily. multivitamin tablet Take 1 tablet by mouth once daily. (Patient taking differently: Take by mouth twice daily. Pt takes 1 capsule by mouth twice per day) olopatadine (PATADAY TWICE DAILY RELIEF) 0.1 % ophthalmic solution Use 1 Drop in both eyes twice daily. iron bisgly,ps-FA-B-C#12-succ 65 mg-65 mg -1,000 mcg (24) tab Take 65 mg by mouth once daily. calcium citrate/vitamin D3 (CALCIUM CITRATE + ORAL) Take by mouth twice daily. Pt takes 2 chewables by mouth twice per day. iv contrast (will be provided with radiology test) CT Cardiac - No IV access, insert saline lock prior to the sedation, infusion, injection for imaging exam. Discontinue saline lock post exam. If Pt. has a central line or IVAD, may access for administration according to line specific nursing protocol. Once exam is complete flush line and de-access according to line specific nursing protocol in the CT contrast administration guidelines link. [id number] 334-1.7 mg chew Take 1 tablet by mouth once daily. tolnaftate (FORMULA 3 TOPICAL) Apply 1 application to affected area once daily. cyanocobalamin, vitamin B-12, (VITAMIN B-12 SUBLINGUAL) Dissolve 1 Dose under the tongue once daily. OTC PRODUCT 0.9% NaCl Sinus Rinse aspirin 81 mg chewable tablet Take 1 tablet by mouth once daily. Cholecalciferol, Vitamin D3, 50 mcg (2,000 unit) cap Take 1,000 Units by mouth twice daily. SAW PALMETTO ORAL Take 1 tablet by mouth once daily. ubidecarenone/vitamin E mixed (COQ10 SG 100 ORAL) Take 1 capsule by mouth once daily. psyllium husk, bulk, 100 % powd 1 teaspoonful twice daily. Current Facility-Administered Medications Medication Dose Route Frequency perflutren lipid microspheres 1.3 mL in NaCl (PF) 0.9% 10 mL injection (DEFINITY) INTRAVENOUS DIRECTED PRN sodium chloride 0.9 % (flush) 10 mL (BD POSIFLUSH) 10 mL INTRAVENOUS DIRECTED PRN ALLERGIES: ALLERGIES Allergen Reactions Lisinopril Cough CHIEF COMPLAINT: Wally Barrow is a 77 year old White male seen today. Patient presents with: Chest Pain HISTORY OF PRESENT CARDIOVASCULAR ILLNESS: 77 year old male with a PMH significant for hypertension, aortic dilatation as well as severe aortic insufficiency status post AVR (Bio Bentall, #27 CE valve) and aortic root and ascending aorta replacement (28 gelweave graft) on 08/12/[address] Briggs, and postoperative atrial fibrillation. Patient presents for ongoing management of cardiovascular risk factors. Two years ago Pt was laying on the floor reaching for something and felt a sharp, right sided chest pain. It is a needle like pain that comes and goes. Discomfort has since spread. He now has superficial point tenderness on his right side and a deeper pain beneath his right chest that happens at random. He occasionally has twinges on the left side. No symptoms with exertion. Pt saw his PCP who ordered CT Chest with Contrast and pharmacologic stress test. Pt reports having dizziness/lightheadedness that is present most of the time. Symptoms have happened for 2+ years (before valve surgery) and are more frequent. No concern for falling. It happens with sitting or walking. Metoprolol was reduced from 50 mg to 25 mg with no significant change in dizziness. SBP's at home are 120's. CT Chest w/ contrast 01/07/23 Impression: Stable Chest CT from 05/18/22, as described No findings of concern identified within the anterior right upper chest wall, at the area of clinical concern 01/11/23 NM Cardiac Perf Stress/Pharm CONCLUSIONS: 1. SPECT Perfusion Study: Normal. 2. There is no scintigraphic evidence for inducible ischemia. 3. No evidence of scarred myocardium. 4. Left ventricle is normal in size. The left ventricle systolic function is normal. 5. Right ventricle is mildly dilated. The right ventricle systolic function is mildly decreased. 6. This is a low risk scan. Gated Stress FBP Gated Rest FBP LVEF % 78 73 Chest pain: see above Claudication: No SOB: No Orthopnea: No PND: No LE: No Lightheadedness/dizziness: No Palpitations: Occasional PVC's, heart pounding. Bleeding/bruising: No CARDIAC RISK FACTORS: History question Answer Diagnosis Date Comment Hypertension : Hypertension 11/25/1989 Exercise: Three to five times per week Family History of CAD: Negative Active with housework, reaching 10,000 steps per day. Avg. Sleep Hours Per Night?: 8 STATIN INTOLERANCE: Adverse Effect History of Statin Intolerance:: No Current Statin Freq: None Intolerance to Ezetimibe: No Intolerance to Niacin: No Intolerance to Fibrates: No Intolerance to Bile Acid Sequestrants: No USE OF PCSK9 INHIBITORS: CARDIOVASCULAR DISEASE HISTORY: CAD EVENTS; PVD EVENTS: CVD EVENTS: FAMILY AND SOCIAL HISTORY Lifestyle Tobacco Use: 1.5 packs/day, for 25 years. Quit 08/11/1990. Types: Cigarettes Alcohol Use: Approximately 3.6 oz/week [which includes 6 Glasses of Wine (5oz) per week] (social) PHYSICAL EXAMINATION Vital Signs and General Appearance BP 110/64 Pulse 78 Wt 84 kg (185 lb 3.2 oz) BMI 26.57 kg/m BMI 26.57 kg/(m^2) PHYSICAL EXAMINATION: General appearance: well appearing, alert, in no acute distress, and well-hydrated, well nourished Carotid Pulses: Left:2+, Right: 2+, Bruit: No Lungs: lungs clear to auscultation no wheezing or rhonchi Heart: regular rate and rhythm without murmur, normal S1 and S2 Lower Extremities Pulses: Right Posterior Tibial: 2+, Left Posterior Tibial: 2+, Edema: No significant edema Clinical Test Results Last ECHO Result Conclusion ECHO Collected: 08/16/2022 2:49 PM (Final result) Impression: CONCLUSIONS: - Exam indication: Routine surveillance of prosthetic valve (>3yrs) - The left ventricle is normal in size. Left ventricular systolic function is normal. EF = 58 5% (2D biplane) - The right ventricle is normal in size. Right ventricular systolic function is normal. 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 There is no aortic valve regurgitation. The peak gradient is 20 mmHg, the mean gradient is 11 mmHg and the dimensionless valve index is 0.46. Prior pk/mn AV gradients were 20/11 mmHg. - Exam was compared with the prior CC echocardiographic exam performed on 05/24/2021. Similar findings. * * * Final * * * Ejection Fraction: Ejection Fraction: Normal (>50%) Lab Results: Lipoprotein (a) Date Value Ref Range Status 10/29/2016 <2 0 - 40 mg/dL Final Comment: Result rechecked. Fib Clot Date Value Ref Range Status 08/12/2018 109 (L) 200 - 400 mg/dL Final Cholesterol, Total Date Value Ref Range Status 08/10/2022 157 <200 mg/dL Final Comment: <200 mg/dL, Desirable 200-239 mg/dL, Borderline high >239 mg/dL, High Triglyceride Date Value Ref Range Status 08/10/2022 126 <150 mg/dL Final Comment: <150 mg/dL, Normal 150-199 mg/dL, Borderline high 200-499 mg/dL, High >499 mg/dL, Very high HDL Cholesterol Date Value Ref Range Status 08/10/2022 39 (L) >39 mg/dL Final Comment: 40-59 mg/dL, Acceptable >59 mg/dL, High: Negative risk factor for coronary heart disease <40 mg/dL, Low: Positive risk factor for coronary heart disease LDL Cholesterol Date Value Ref Range Status 08/10/2022 93 <100 mg/dL Final Comment: <100 mg/dL, Optimal 100-129 mg/dL, Near optimal/above optimal 130-159 mg/dL, Borderline high 160-189 mg/dL, High >189 mg/dL, Very high Secondary prevention optimal LDL Cholesterol levels are recommended to be < 70 mg/dL ALT Date Value Ref Range Status 08/10/2022 19 10 - 54 U/L Final Glucose Date Value Ref Range Status 08/10/2022 78 74 - 99 mg/dL Final Comment: The [place] Diabetes Association (ADA) provides guidance for cutoff values for fasting glucose and random glucose. The ADA defines fasting as no caloric intake for at least 8 hours. Fasting plasma glucose results between 100 to 125 mg/dL indicate increased risk for diabetes (prediabetes). Fasting plasma glucose results greater than or equal to 126 mg/dL meet the criteria for diagnosis of diabetes. In the absence of unequivocal hyperglycemia, results should be confirmed by repeat testing. In a patient with classic symptoms of hyperglycemia or hyperglycemic crisis, random plasma glucose results greater than or equal to 200 mg/dL meet the criteria for diagnosis of diabetes. Reference: Standards of Medical Care in Diabetes 2016, [place] Diabetes Association. Diabetes Care. 2016.39(Suppl 1). TSH Date Value Ref Range Status 01/09/2017 1.830 0.400 - 5.500 uU/mL Final UltraSens C-Reactive Protein Date Value Ref Range Status 02/27/2017 0.3 <3.1 mg/L Final Comment: (NOTE) hsCRP < 1.0 mg/L, relative risk is low hsCRP 1.0-3.0 mg/L, relative risk is average hsCRP > 3.0 mg/L, relative risk is high Reference: Chanel TA, Whit GA, Kj RW, et al. Markers of Inflammation and Cardiovascular Disease. Application to Clinical and Public Health Practice. A Statement for Healthcare Professionals From the Centers for Disease Control and Prevention and the [place] [employer] Association. Circulation 2003;107:499-511. Creatinine Date Value Ref Range Status 08/10/2022 1.09 0.73 - 1.22 mg/dL Final Potassium Date Value Ref Range Status 08/10/2022 4.0 3.7 - 5.1 mmol/L Final NT Pro BNP Date Value Ref Range Status 06/26/2018 528 (H) <125 pg/mL Final Patient Entered Questionnaire Scores PHQ-9 01/09/2017 Score 0 PROMIS Global Health - (T-Scores - the mean of general population = 50. Five points is a clinically meaningful difference.) 01/09/2017 Physical T-Score 54.1 Mental T-Score 50.8 IMPRESSION: In summary, Mr. Barrow is a 77 year old male who was referred to the [facility] because of , Value disease PLAN: The results of this assessment were discussed with the patient and spouse. We have mutually agreed upon the following plans and goals: S/p AVR: s/p AVR (Bio Bentall # 27 CE valve), Aortic root and ascending aorta replacement (28 gelweave graft) on 08/12/[address] Briggs. Echo 07/2022 showed no significant change. EF 58%. Chest discomfort: For 2 years he has had superficial point tenderness on his right side and a deeper pain beneath his right chest that happens at random. He occasionally has twinges on the left side. Symptoms are non-exertional. Superficial tenderness now occurs more throughout his right upper chest. Pt saw his PCP who ordered CT Chest with Contrast and pharmacologic stress test. Both studies were unremarkable. PLAN: -Will review with Dr. Portillo. Hyperlipidemia: LDL goal <100, no CAD on cath. Component Latest Ref Rng & Units 05/24/2021 08/10/2022 Cholesterol, Total <200 mg/dL 137 157 Triglyceride <150 mg/dL 65 126 HDL Cholesterol >39 mg/dL 43 39 (L) LDL Cholesterol <100 mg/dL 81 93 PLAN: -Continue diet control. There is limited data in starting a statin for a primary prevention patient >75 years with LDL<100 Anti-platelet / Anti-coagulant: on aspirin 81mg daily Hypertension: Normal BP < 130/80. Well controlled. Metoprolol was decreased at last visit due to dizziness. No significant change in symptoms. Date: BP: 01/11/2023 110/64 08/15/2022 114/72 02/05/2022 108/60 04/12/2021 108/76 Plan: - continue HCTZ, Irbesartan, metoprolol Exercise/Weight/Nutrition: Active with housework, reaching 10,000 steps per day. Diet not discussed due to time constraints. History of post-op atrial fibrillation: Previously seen by Dr. Javier. No recurrence. Not on anticoagulation. Physicians and Nurse Practitioners work closely together in Preventive Cardiology. If at any time you would like to see a Physician for a visit, please let us know. [facility]: Faye 07/2022 AMBULATORY PATIENT EDUCATION Topic: Education on risk factors and medications. Instruction Provided To: Patient Cognitive Ability: Alert/Oriented Barriers: None Motivation to Learn: Interested Methods of Instruction: Verbal instruction and/or handouts. Patient Leans Best By: Multiple Methods Patient Verbalized: Understanding I personally spent 35 minutes in total time involved in the management and care of this patient. Abeba Keen APRN.TRACEY documented in this encounter [facility] 01-11-2023 History of Present illness Narrative RADIOLOGY SERVICE PROGRESS NOTE SERVICE DATE: 01/11/2023 SERVICE TIME: 10:18 AM PATIENT IDENTITY VERIFICATION COMPLETED USING TWO (2) STANDARD IDENTIFIERS: Name and Date of confirmed by patient verbally and Name and Date of confirmed by identification band PATIENT GENDER DATA: male ALLERGIES: Reviewed and unchanged MEDICATIONS REVIEWED BY: Ice Maker PROCEDURE TYPE: NM STRESS: 0.4 mg of Lexiscan was administered IV at 1017 by Jo Wynne RN . Reversal agent used: None. IV SITE: Ambulatory: A Saline lock was inserted per protocol POST EXAM PIV STATUS: Discontinued PATIENT DISCHARGED TO: Ambulatory patient, left NM department area. A Diagnostic radioactive procedure has taken place, with no further precautions necessary other than routine body substance precautions. More information regarding radiation safety can be found using this link: [email or web address] SIGNATURE: Jo Wynne RN PATIENT NAME: Wally Barrow DATE: January 11, 2023 TIME: 10:18 AM PAGER/CONTACT #: [phone] documented in this encounter [facility] 01-01-2023 Miscellaneous Notes Images from the original note were not included. Thoracic Surgery Consultation - review of records for appointment scheduling Patient is being referred to Unspecified/First Available by Self Referred for Right Chest Pain Outside hospital records scanned Imaging CT (chest) 05/18/22 Cardiopulmonary Testing PFT's/Six: Cardiac: 08/16/22 echo CONCLUSIONS: - Exam indication: Routine surveillance of prosthetic valve (>3yrs) - The left ventricle is normal in size. Left ventricular systolic function is normal. EF = 58 5% (2D biplane) - The right ventricle is normal in size. Right ventricular systolic function is normal. 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 There is no aortic valve regurgitation. The peak gradient is 20 mmHg, the mean gradient is 11 mmHg and the dimensionless valve index is 0.46. Prior pk/mn AV gradients were 20/11 mmHg. - Exam was compared with the prior [facility] echocardiographic exam performed on 05/24/2021. Similar findings. 04/11/22 stress test 1. Incidental Findings from limited non-diagnostic CTAC: - No distinct coronary calcifications. Office Notes/Consults 08/15/22 Dr Portillo 1) status post AVR Status post AVR (Bio Bentall, #27 CE valve) and aortic root and ascending aorta replacement (28 gelweave graft) on 08/12/[address] Briggs. Doing well. Repeat echo ordered today given light-headednes 2) Hypertension Well controlled here today. May be too low at home contributing to light-headedness 1) Irbesartan 300 mg daily 2) Metoprolol succinate 25 mg nightly (decreased today.) 3) HCTZ 25 mg daily 3) Atherosclerotic cardiovascular disease risk reduction / dyslipidemia No significant coronary artery disease on preop (valve) coronary angiogram. Given he is 76 years of age, limited data about starting a statin for primary prevention with low density lipoprotein cholesterol < 100 mg/dL. Will not start. 4) History of post-operative paroxysmal atrial fibrillation Seen by Dr. Javier previously. No recurrence, so decision has been made to not anticoagulate, which is in line with Mr. Barrow's wishes. FOLLOW UP: We recommend a 6 month follow-up - patient wishes to follow-up with Abeba Keen (sees his ) History of: FAMILY HISTORY Problem Relation Age of Onset Alzheimer's Disease Mother Hypertension Mother Stroke Father Cancer Father Prostate Alzheimer's Disease Sister other (Other) Sister Jeri Parul's Disease PAST MEDICAL HISTORY Diagnosis Date Aortic insufficiency Ascending aortic aneurysm (HCC) Dilated aortic root (HCC) History of GI bleed history of bleeding ulcer HLD (hyperlipidemia) Hypertension 11/25/1989 Paroxysmal atrial fibrillation (HCC) 08/15/2018 PAST SURGICAL HISTORY Procedure Laterality Date CHOLECYSTECTOMY HX with concurrent umbilical hernia repair HAND SURGERY HX Right piece of bone removed and tendon repair for arthritis KNEE ARTHROSCOPY Right fluid removed SHOULDER SURGERY HX Bilateral rotator cuff SHX AORTIC VALVE REPLACEMENT 08/12/2018 SINUS SURGERY HX Social History Tobacco Use Smoking status: Former Packs/day: 1.50 Years: 25.00 Pack years: 37.50 Types: Cigarettes Quit date: 08/11/1990 Years since quittin.4 Smokeless tobacco: Never Tobacco comments: Quit over 30 yrs ago Vaping Use Vaping Use: Never used Substance Use Topics Alcohol use: Yes Alcohol/week: 6.0 standard drinks Types: 6 Glasses of Wine (5oz) per week Comment: social Drug use: No Request await additional testing - pt notes he feels like needles at the surface of the skin Plan for CT chest to evaluate and stress test, await CT chest updates and contact from PCP. 2 yrs after CTS surgery, pt notes he was searching something under a cabinet back in 2019 and felt a pop he states he has this all since intermittent with arm stretching and touching the sore spot. pt to have PCP contact us if needed Maryann Torres RN Received [facility] Staff Message from external referring [place]/ [facility] ([facility]) Wally Pak Jose C is being referred to Unspecified Thoracic Surgeon by No referring provider defined for this encounter. Phone: N/A Fax: Patient diagnosis/Reason for consult: right sided muscle pain Referral triage process explained: Yes Patient will receive a call from Thoracic NPM after triage review with surgeon to discuss any additional testing and/or consults that will be scheduled. Pt will then receive a call from our scheduling office for scheduling. Please call pt at [phone]. Patient was informed consultation could be at [facility] or [facility] [place]: No Patient Registration: Registration complete/updated: yes Insurance card(s) scanned [facility] with in the past year: No Pt's [employer] is active. Ok to communicate to pt via [employer] yes Medical Records: Records in [facility] (internal [facility] records): No Imaging in [facility] (internal [facility] records): No Care Everywhere - queried yes, downloaded Yes Linked Outside Organizations (list): Isaac Marquez [facility] Records Requested: yes Date: 12-28-2022 Outside Hospital(s) requested records from: PCP Dr. Isaacs Received: no Uploaded: No. Waiting on additional records: Yes. Missing (list): Office Notes Radiology Report(s) OSH Pathology Slides Requested: no Date: N/A Outside Hospital(s) slides requested from: n/a OS Radiology Imaging Requested: yes Date: 12-28-2022 Outside Hospital(s) requested imaging from: [facility]. Imaging will be received via Electronic Transfer Received: no Imaging uploaded: No Waiting on additional: Yes. Missing (list): CT, CTA, MRI, and XR Additional providers added to Care Teams: No Additional Notes/Comments: called and spoke with patient, he will have his PCP fax over records, per conversation not a Thor issue but agreed to have our team review his imaging/records Enct routed to: No Laurence Christie documented in this encounter [facility] 12-27-2022 Miscellaneous Notes Reason for call: Mr Barrow called and he would like to schedule an appointment with a thoracic surgeon as soon as possible Home and cell number [phone] Diagnosis right side muscle pain Kind Regards Rosa documented in this encounter [facility] 11-12-2022 Miscellaneous Notes Call from patient requesting refill. Requested Prescriptions Pending Prescriptions Disp Refills hydroCHLOROthiazide (HYDRODIURIL, ESIDRIX) 25 mg tablet 90 tablet 3 Sig: Take 1 tablet by mouth once daily. Patient last seen 08/16 Indira Lieberman Pss documented in this encounter [facility] 10-15-2022 Miscellaneous Notes The following approved medication requests have been transmitted electronically. Requested Prescriptions Signed Prescriptions Disp Refills irbesartan (AVAPRO) 300 mg tablet 90 tablet 2 Sig: Take 1 tablet by mouth daily at bedtime. Authorizing Provider: JOYCE BERG APRN.CNP Call from patient requesting refill. Requested Prescriptions Pending Prescriptions Disp Refills irbesartan (AVAPRO) 300 mg tablet 90 tablet 3 Sig: Take 1 tablet by mouth daily at bedtime. Patient last seen 07/2022 Bekah Albarran documented in this encounter [facility] 08-15-2022 History of Present illness Narrative Images from the original note were not included. 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 Briggs, and postoperative atrial fibrillation. I last saw Wally Barrow on 10/12/2020. During prior visits we discussed Seen by Dr. Dumont in 11/[address] Javier in EP in 06/12. Most recently in Preventive Cardiology in 07/09 by Clarisse Gee. Overall he is doing well. No acute complaints. He has been hesitant to take statins in the past but is amenable to doing so, if I recommend them. Blood pressure is well controlled. After 10/13 visit he did fine. Saw Clarisse Gee in clinic about 2 months ago for sharp R sided chest pain. Had CT with PCP that did not reveal any bony abnormality. Not associated with exertion, atypical. TGs were elevated on last blood work, repeat pending today. His is having a TAVR here in 2 weeks. After 09/2020 visit saw Ezekiel Taylor MOTOR DRIVER in follow-up in 02/13. Notes daily mild light-headedness that is not positional, does not change with exertion. Drinks significant fluid. No syncope, no heart racing. Upon cardiovascular review of systems the patient denies chest pain, SOB, palpitations, syncope, PND , orthopnea, intermittent claudication. CURRENT MEDS: Current Outpatient Medications Medication Sig azithromycin (ZITHROMAX) 500 mg tablet Take 1 tablet by mouth once daily. Take one tablet 60 minutes prior to procedure. hydroCHLOROthiazide (HYDRODIURIL, ESIDRIX) 25 mg tablet Take 1 tablet by mouth once daily. irbesartan (AVAPRO) 300 mg tablet Take 1 tablet by mouth daily at bedtime. metoprolol succinate ER (TOPROL XL) 50 mg 24 hr tablet Take 1 tablet by mouth once daily. omega 3-mhh-tlz-fish oil (FISH OIL) 900-1,400 mg cpDR Take 1,400 mg by mouth once daily. multivitamin tablet Take 1 tablet by mouth once daily. (Patient taking differently: Take by mouth twice daily. Pt takes 1 capsule by mouth twice per day) olopatadine (PATADAY TWICE DAILY RELIEF) 0.1 % ophthalmic solution Use 1 Drop in both eyes twice daily. iron bisgly,ps-FA-B-C#12-succ 65 mg-65 mg -1,000 mcg (24) tab Take 65 mg by mouth once daily. calcium citrate/vitamin D3 (CALCIUM CITRATE + ORAL) Take by mouth twice daily. Pt takes 2 chewables by mouth twice per day. elderberry fruit (ELDERBERRY ORAL) Take 1 teaspoonful by mouth once daily. iv contrast (will be provided with radiology test) CT Cardiac - No IV access, insert saline lock prior to the sedation, infusion, injection for imaging exam. Discontinue saline lock post exam. If Pt. has a central line or IVAD, may access for administration according to line specific nursing protocol. Once exam is complete flush line and de-access according to line specific nursing protocol in the CT contrast administration guidelines link. [id number] 334-1.7 mg chew Take 1 tablet by mouth once daily. tolnaftate (FORMULA 3 TOPICAL) Apply 1 application to affected area once daily. cyanocobalamin, vitamin B-12, (VITAMIN B-12 SUBLINGUAL) Dissolve 1 Dose under the tongue once daily. OTC PRODUCT 0.9% NaCl Sinus Rinse aspirin 81 mg chewable tablet Take 1 tablet by mouth once daily. Cholecalciferol, Vitamin D3, 50 mcg (2,000 unit) cap Take 1,000 Units by mouth twice daily. SAW PALMETTO ORAL Take 1 tablet by mouth once daily. ubidecarenone/vitamin E mixed (COQ10 SG 100 ORAL) Take 1 capsule by mouth once daily. psyllium husk, bulk, 100 % powd 1 teaspoonful twice daily. No current facility-administered medications for this visit. ALLERGIES: ALLERGIES Allergen Reactions Lisinopril Cough CARDIAC RISK FACTORS: History question Answer Diagnosis Date Comment Hypertension : Hypertension 11/25/1989 N/A Exercise: Three to five times per week Family History of CAD: Negative Active this summer in yard Has treadmill using daily 1 hour Avg. Sleep Hours Per Night?: 8 STATIN INTOLERANCE: Adverse Effect History of Statin Intolerance:: No Current Statin Freq: None Intolerance to Ezetimibe: No Intolerance to Niacin: No Intolerance to Bile Acid Sequestrants: No USE OF PCSK9 INHIBITORS: CARDIAC RISK FACTORS: History question Answer Diagnosis Date Comment Hypertension : Hypertension 11/25/1989 N/A Exercise: Three to five times per week Family History of CAD: Negative Active this summer in yard Has treadmill using daily 1 hour Avg. Sleep Hours Per Night?: 8 STATIN INTOLERANCE: Adverse Effect History of Statin Intolerance:: No Current Statin Freq: None Intolerance to Ezetimibe: No Intolerance to Niacin: No Intolerance to Bile Acid Sequestrants: No USE OF PCSK9 INHIBITORS: CARDIOVASCULAR DISEASE HISTORY: Valve Disease: Aortic insufficiency : History question Answer Diagnosis Date Comment Aortic valve replacement : SHX AORTIC VALVE REPLACEMENT 08/12/2018 Arrythmias: History question Answer Diagnosis Date Comment PAF : Paroxysmal atrial fibrillation (HCC) 08/15/2018 HEART FAILURE/CARDIOMYOPATHY: None RELATED DISEASE HISTORY: CURRENT MEDS: Current Outpatient Medications Medication Sig azithromycin (ZITHROMAX) 500 mg tablet Take 1 tablet by mouth once daily. Take one tablet 60 minutes prior to procedure. hydroCHLOROthiazide (HYDRODIURIL, ESIDRIX) 25 mg tablet Take 1 tablet by mouth once daily. irbesartan (AVAPRO) 300 mg tablet Take 1 tablet by mouth daily at bedtime. metoprolol succinate ER (TOPROL XL) 50 mg 24 hr tablet Take 1 tablet by mouth once daily. omega 1-lar-jhw-fish oil (FISH OIL) 900-1,400 mg cpDR Take 1,400 mg by mouth once daily. multivitamin tablet Take 1 tablet by mouth once daily. (Patient taking differently: Take by mouth twice daily. Pt takes 1 capsule by mouth twice per day) olopatadine (PATADAY TWICE DAILY RELIEF) 0.1 % ophthalmic solution Use 1 Drop in both eyes twice daily. iron bisgly,ps-FA-B-C#12-succ 65 mg-65 mg -1,000 mcg (24) tab Take 65 mg by mouth once daily. calcium citrate/vitamin D3 (CALCIUM CITRATE + ORAL) Take by mouth twice daily. Pt takes 2 chewables by mouth twice per day. elderberry fruit (ELDERBERRY ORAL) Take 1 teaspoonful by mouth once daily. iv contrast (will be provided with radiology test) CT Cardiac - No IV access, insert saline lock prior to the sedation, infusion, injection for imaging exam. Discontinue saline lock post exam. If Pt. has a central line or IVAD, may access for administration according to line specific nursing protocol. Once exam is complete flush line and de-access according to line specific nursing protocol in the CT contrast administration guidelines link. [id number] 334-1.7 mg chew Take 1 tablet by mouth once daily. tolnaftate (FORMULA 3 TOPICAL) Apply 1 application to affected area once daily. cyanocobalamin, vitamin B-12, (VITAMIN B-12 SUBLINGUAL) Dissolve 1 Dose under the tongue once daily. OTC PRODUCT 0.9% NaCl Sinus Rinse aspirin 81 mg chewable tablet Take 1 tablet by mouth once daily. Cholecalciferol, Vitamin D3, 50 mcg (2,000 unit) cap Take 1,000 Units by mouth twice daily. SAW PALMETTO ORAL Take 1 tablet by mouth once daily. ubidecarenone/vitamin E mixed (COQ10 SG 100 ORAL) Take 1 capsule by mouth once daily. psyllium husk, bulk, 100 % powd 1 teaspoonful twice daily. No current facility-administered medications for this visit. ALLERGIES: ALLERGIES Allergen Reactions Lisinopril Cough FAMILY AND SOCIAL HISTORY: Lifestyle Employer And Job Title: No employer specified (retired) Years Of Education Completed: 16+ years Marital Status: with 7 children Tobacco use in the last year: No Alcohol Use: Approximately 3.6 oz/week [which includes 6 Glasses of Wine (5oz) per week] (social) REVIEW OF SYSTEMS: CONSTITUTIONAL: No Changes. HEENT:Negative for frequent or significant headaches, No changes in hearing or vision, no nose bleeds or other nasal problems RESPIRATORY: Negative for cough, hemoptysis, wheezing, COPD, dyspnea or shortness of breath CARDIOVASCULAR: See HPI Otherwise not reviewed PHYSICAL EXAMINATION: Vital Signs and General Appearance BP 114/72 (BP Site: Left Arm, BP Position: Sitting, BP Cuff Size: Regular Adult) Pulse 65 Ht 177.8 cm (5' 10 ) Wt 82.6 kg (182 lb) BMI 26.11 kg/m Average Blood Pressure: 114/72 BMI 26.11 kg/(m^2) Well developed, well nourished, alert, active 76 year old male in no apparent distress. Eyes: Normal, PERRLA Skin: Xanthomas - none Neck: Normal, supple with full range of motion Lungs: Clear to auscultation and percussion Lower Extremities: Normal exam of the extremities Neurological:Oriented to person, place and time and No focal motor or sensory deficits Pulses: Carotid: Left: 2+, Right: 2+, Bruit: No Posterior Tibial:Right 2+, Posterior Tibial:Left 2+, Heart Sounds: S1: Normal S2: Normal S3: Absent S4: Absent Murmurs: Systolic Murmur Present: No Diastolic Murmur Present: No Xanthomas: No CLINICAL TESTING RESULTS: I have personally reviewed the following: Most recent ECG Tracing: (NSR at 65 bpm, 1st degree AV delay , iLBBB), (performed on 06/01/19), which I independently visualized. Most Recent TTE: (CONCLUSIONS: - Exam indication: Routine surveillance of prosthetic valve (>3yrs) - The left ventricle is normal in size. There is mild upper septal left ventricular hypertrophy. Left ventricular systolic function is normal. EF = 61 5% (2D biplane) - The right ventricle is mildly dilated. Right ventricular systolic function is normal. 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 There is no aortic valve regurgitation. The peak gradient is 19 mmHg, the mean gradient is 10 mmHg and the dimensionless valve index is 0.47. Prior peak/mean gradients: 17/9 mmHg. - Exam was compared with the prior [facility] echocardiographic exam performed on 09/11/2018. Similar AV gradients. ),(performed on 04/20/20) Other recent cardiac testing: ZioXT monitoring 2 days 15 hours monitoring Patient had a min HR of 55 bpm, max HR of 103 bpm, and avg HR of 69 bpm. Predominant underlying rhythm was Sinus Rhythm. Isolated SVEs were rare (<1.0%), and no SVE Couplets or SVE Triplets were present. Isolated VEs were rare (<1.0%), VE Couplets were rare (<1.0%), and no VE Triplets were present. Ventricular Bigeminy was present. (September 2018) LABS: Glucose (mg/dL) Date Value 08/10/2022 78 BUN (mg/dL) Date Value 08/10/2022 20 Creatinine (mg/dL) Date Value 08/10/2022 1.09 Sodium (mmol/L) Date Value 08/10/2022 139 Potassium (mmol/L) Date Value 08/10/2022 4.0 Chloride (mmol/L) Date Value 08/10/2022 105 CO2 (mmol/L) Date Value 08/10/2022 23 Protein, Total (g/dL) Date Value 08/10/2022 7.2 Albumin (g/dL) Date Value 08/10/2022 4.5 Calcium, Total (mg/dL) Date Value 08/10/2022 9.7 Alkaline Phosphatase (U/L) Date Value 08/10/2022 67 Bilirubin, Total (mg/dL) Date Value 08/10/2022 0.8 AST (U/L) Date Value 08/10/2022 26 ALT (U/L) Date Value 08/10/2022 19 WBC (k/uL) Date Value 09/11/2018 8.68 RBC (m/uL) Date Value 09/11/2018 4.04 (L) Hemoglobin (g/dL) Date Value 09/11/2018 11.1 (L) Hematocrit (%) Date Value 09/11/2018 37.2 (L) MCV (fL) Date Value 09/11/2018 92.1 MCH (pG) Date Value 09/11/2018 27.5 MCHC (g/dL) Date Value 09/11/2018 29.8 (L) RDW-CV (%) Date Value 09/11/2018 14.0 Platelet Count (k/uL) Date Value 09/11/2018 253 MPV (fL) Date Value 09/11/2018 10.9 PT INR (no units) Date Value 08/27/2018 1.6 (H) Cholesterol, Total Date Value Ref Range Status 08/10/2022 157 <200 mg/dL Final Comment: <200 mg/dL, Desirable 200-239 mg/dL, Borderline high >239 mg/dL, High HDL Cholesterol Date Value Ref Range Status 08/10/2022 39 (L) >39 mg/dL Final Comment: 40-59 mg/dL, Acceptable >59 mg/dL, High: Negative risk factor for coronary heart disease <40 mg/dL, Low: Positive risk factor for coronary heart disease LDL Cholesterol Date Value Ref Range Status 08/10/2022 93 <100 mg/dL Final Comment: <100 mg/dL, Optimal 100-129 mg/dL, Near optimal/above optimal 130-159 mg/dL, Borderline high 160-189 mg/dL, High >189 mg/dL, Very high Secondary prevention optimal LDL Cholesterol levels are recommended to be < 70 mg/dL Triglyceride Date Value Ref Range Status 08/10/2022 126 <150 mg/dL Final Comment: <150 mg/dL, Normal 150-199 mg/dL, Borderline high 200-499 mg/dL, High >499 mg/dL, Very high PATIENT ENTERED QUESTIONNAIRE SCORES PHQ-9 01/09/2017 Score 0 PROMIS Global Health - (T-Scores - the mean of general population = 50. Five points is a clinically meaningful difference.) 01/09/2017 Physical T-Score 54.1 Mental T-Score 50.8 ASSESSMENT AND PLAN: In addition to the above history and physical exam, the results of prior labs and testing, were reviewed. The following plans and goals have been established to address current medical problems and optimize control of cardiovascular risk factors to reduce the risk of future heart disease: Active Medical Problems: 1) status post AVR Status post AVR (Bio Bentall, #27 CE valve) and aortic root and ascending aorta replacement (28 gelweave graft) on 08/12/[address] Briggs. Doing well. Repeat echo ordered today given light-headednes 2) Hypertension Well controlled here today. May be too low at home contributing to light-headedness 1) Irbesartan 300 mg daily 2) Metoprolol succinate 25 mg nightly (decreased today.) 3) HCTZ 25 mg daily 3) Atherosclerotic cardiovascular disease risk reduction / dyslipidemia No significant coronary artery disease on preop (valve) coronary angiogram. Given he is 76 years of age, limited data about starting a statin for primary prevention with low density lipoprotein cholesterol < 100 mg/dL. Will not start. 4) History of post-operative paroxysmal atrial fibrillation Seen by Dr. Javier previously. No recurrence, so decision has been made to not anticoagulate, which is in line with Mr. Barrow's wishes. FOLLOW UP: We recommend a 6 month follow-up - patient wishes to follow-up with Abebaapril Stoutns (sees his ) The medical decision making for this patient encounter was of moderatecomplexity I provided Wally Pak Jose C with my contact information at this visit (or a prior visit.) This information includes my office phone number, office fax number, [employer] instructions, and my work email address. Frankiedominique Pasha Jose C was strongly encouraged to use [employer] for communication if possible, but my email address was provided if needed. Juan F Portillo MD AMBULATORY PATIENT EDUCATION Topic: Hyperlipidemia and Hypertension Instruction Provided To: Patient Barriers: None Motivation to Learn: Interested Methods of Instruction: Verbal instruction and/or handouts. Patient Leans Best By: Multiple Methods Patient Verbalized: Understanding documented in this encounter [facility] 08-10-2022 Miscellaneous Notes August 10, 2022 Patient Contact Number: [phone] Patient last seen within the last year: Yes Date of last office visit: 02-05-22 with Mee Taylor Reason For Call: Other Issue: at local lab right now with . Wants to know if any labs should get done for his upcoming appointment this Saturday on Mee Taylor put in lab order and informed patient. Physician: Juan F Portillo MD Patient was informed that non-urgent calls may be returned within the next three business days. Yes Roselyn Aden documented in this encounter [facility] 04-11-2022 History of Present illness Narrative RADIOLOGY SERVICE PROGRESS NOTE SERVICE DATE: 04/11/2022 SERVICE TIME: 9:10 AM PATIENT IDENTITY VERIFICATION COMPLETED USING TWO (2) STANDARD IDENTIFIERS: Name and Date of confirmed by patient verbally FALL SCREENING: Has the patient had 2 falls in the last year or 1 fall with injury or currently using an Ambulatory Assistive Device (Walker, Cane, Wheelchair, Crutches, etc.)? No PATIENT GENDER DATA: .male : No ALLERGIES: Reviewed and unchanged MEDICATIONS REVIEWED: No PATIENT RELEVANT IMPLANT DATA REVIEWED: Not Applicable CREATININE: Creatinine Date Value Ref Range Status 05/24/2021 1.09 0.73 - 1.22 mg/dL Final 10/12/2020 1.08 0.73 - 1.22 mg/dL Final 08/17/2020 1.12 0.73 - 1.22 mg/dL Final eGFR-All Other Races Date Value Ref Range Status 05/24/2021 >60 . Final Comment: eGFR (Estimated GFR) Units of measure: mL/min/1.73 meters squared eGFR is derived from the reexpressed MDRD Study equation using the following parameters: serum creatinine, age, gender and race. The creatinine assay has been calibrated to be traceable to IDMS. An eGFR <60 mL/min/1.73m2 for >3 months is consistent with chronic kidney disease. Refer to KDOQI guidelines for clinical interpretation. In patients with unstable renal function, e.g. those with acute kidney injury, the eGFR may not accurately reflect actual GFR. eGFR- Date Value Ref Range Status 05/24/2021 >60 Final P.O.C.T. RESULTS: N/A April 11, [address] PERFORMED: No IV SITE: Ambulatory: A peripheral IV was started in the Left forearm with a Angio cath: 22 gauge. POST EXAM PIV STATUS: Discontinued PROCEDURE TYPE: NM Stress: 13.0mCi [id number] was administered IV for Rest Imaging at 0905. 32 mCi [id number] was administered IV for Stress Imaging at 1018 by RT Luz Marina(R) . PATIENT DISCHARGED TO: Ambulatory patient, left NE department area. A Diagnostic radioactive procedure has taken place, with no further precautions necessary other than routine body substance precautions. More information regarding radiation safety can be found using this link: [email or web address] SIGNATURE: RT Althea(R) PATIENT NAME: Wally Barrow DATE: April 11, 2022 TIME: 9:10 AM PAGER/CONTACT #: documented in this encounter [facility] 03-20-2022 Miscellaneous Notes Call from patient requesting refill. Patient is scheduled for dental work on 03/28/22. Pending Prescriptions Disp Refills AZITHROMYCIN 500 MG TABLET 1 tablet 0 Sig: Take 1 tablet by mouth once daily. Take one tablet 60 minutes prior to procedure. DU: No Patient last seen January 2022 Navya Zavala documented in this encounter [facility] 03-09-2022 Evaluation + Plan note Future Scheduled TestsFecal WBC Lactoferrin 03/09/22Giardia lamblia, Direct Detection EIA 03/09/22O & P Exam, Routine 03/09/22Clostridium difficile by PCR 03/09/22Enteric Panel by PCR 03/09/22 [facility] 02-19-2022 Hospital Discharge instructions Patient Education 02/19/2022 11:09:09 Colonoscopy, Care After Surgery Salam (CUSTOM) Colonoscopy Care After Surgery Please read the instructions outlined below and refer to this sheet in the next few weeks. These discharge instructions provide you with general information on caring for yourself after you leave the hospital. Your doctor may also give you specific instructions. While your treatment has been planned according to the most current medical practices available, unavoidable complications occasionally occur. If you have any problems or questions after discharge, please call your doctor. ACTIVITY You may resume your regular activity, but move at a slower pace for the next 24 hours. Take frequent rest periods for the next 24 hours. Walking will help get rid of the air and reduce the bloated feeling in your abdomen (belly). No driving for 24 hours (because of the anesthesia (medicine) used during the test). You may shower. Do not sign any important legal documents or operate any machinery for 24 hours (because of the anesthesia used during the test). NUTRITION Drink plenty of fluids. You may resume your normal diet as instructed by your doctor. Begin with a light meal and progress to your normal diet. Heavy or fried foods are harder to digest and may make you feel nauseated (sick to your stomach). Avoid alcoholic beverages for 24 hours or as instructed. MEDICATIONS You may resume your normal medications unless your doctor tells you otherwise. WHAT YOU CAN EXPECT TODAY Some feelings of bloating in the abdomen. Passage of more gas than usual. Spotting of blood in your stool or on the toilet paper. FOLLOW-UP Your doctor will discuss the results of your test with you. SEEK IMMEDIATE MEDICAL ATTENTION IF: There is more than a spotting of blood in your stool. There is abdominal distention (your abdomen is swollen). There is vomiting. You have a temperature over 101.5 F. There is abdominal pain or discomfort that is severe or gets worse throughout the day. 02/19/2022 11:09:09 Colon Polyps Colon Polyps Polyps are tissue growths inside the body. Polyps can grow in many places, including the large intestine (colon). A polyp may be a round bump or a mushroom-shaped growth. You could have one polyp or several. Most colon polyps are noncancerous (benign). However, some colon polyps can become cancerous over time. Finding and removing the polyps early can help prevent this. What are the causes? The exact cause of colon polyps is not known. What increases the risk? You are more likely to develop this condition if you: Have a family history of colon cancer or colon polyps. Are older than 50 or older than 45 if you are . Have inflammatory bowel disease, such as ulcerative colitis or Crohn's disease. Have certain hereditary conditions, such as: ?Familial adenomatous polyposis. ?Pendleton syndrome. ?Turcot syndrome. ?Peutz Jeghers syndrome. Are overweight. Smoke cigarettes. Do not get enough exercise. Drink too much alcohol. Eat a diet that is high in fat and red meat and low in fiber. Had childhood cancer that was treated with abdominal radiation. What are the signs or symptoms? Most polyps do not cause symptoms. If you have symptoms, they may include: Blood coming from your rectum when having a bowel movement. Blood in your stool. The stool may look dark red or black. Abdominal pain. A change in bowel habits, such as constipation or diarrhea. How is this diagnosed? This condition is diagnosed with a colonoscopy. This is a procedure in which a lighted, flexible scope is inserted into the anus and then passed into the colon to examine the area. Polyps are sometimes found when a colonoscopy is done as part of routine cancer screening tests. How is this treated? Treatment for this condition involves removing any polyps that are found. Most polyps can be removed during a colonoscopy. Those polyps will then be tested for cancer. Additional treatment may be needed depending on the results of testing. Follow these instructions at home: Lifestyle Maintain a healthy weight, or lose weight if recommended by your health care provider. Exercise every day or as told by your health care provider. Do not use any products that contain nicotine or tobacco, such as cigarettes and e-cigarettes. If you need help quitting, ask your health care provider. If you drink alcohol, limit how much you have: ?0 1 drink a day for women. ? 0 2 drinks a day for men. Be aware of how much alcohol is in your drink. In the [place] one drink equals one 12 oz bottle of beer (355 mL), one 5 oz glass of wine (148 mL), or one 1 oz shot of hard liquor (44 mL). Eating and drinking Eat foods that are high in fiber, such as fruits, vegetables, and whole grains. Eat foods that are high in calcium and vitamin D, such as milk, cheese, yogurt, eggs, liver, fish, and broccoli. Limit foods that are high in fat, such as fried foods and desserts. Limit the amount of red meat and processed meat you eat, such as hot dogs, sausage, zhu, and lunch meats. General instructions Keep all follow-up visits as told by your health care provider. This is important. ?This includes having regularly scheduled colonoscopies. ?Talk to your health care provider about when you need a colonoscopy. Contact a health care provider if: You have new or worsening bleeding during a bowel movement. You have new or increased blood in your stool. You have a change in bowel habits. You lose weight for no known reason. Summary Polyps are tissue growths inside the body. Polyps can grow in many places, including the colon. Most colon polyps are noncancerous (benign), but some can become cancerous over time. This condition is diagnosed with a colonoscopy. Treatment for this condition involves removing any polyps that are found. Most polyps can be removed during a colonoscopy. This information is not intended to replace advice given to you by your health care provider. Make sure you discuss any questions you have with your health care provider. Document Released: 08/07/2005 Document Revised: 02/26/2019 Document Reviewed: 02/26/2019 TabbedOut Patient Education 2020 [employer]. 02/19/2022 11:09:09 Diverticulosis MAGR (CUSTOM) Diverticulosis Many people have small pouches in their colon called diverticulum. The diverticulum bulge outward through weak spots in the colon. You could have one or more of these pouches in the colon. The condition of having these pouches in the colon is called diverticulosis or diverticular disease. Diverticulosis is usually diagnosed by tests to evaluate something else. For example, you may have had a colonoscopy to screen for colon cancer when the diverticulosis was found. Most people with diverticulosis do not have any discomfort or problems. If symptoms develop, they may include mild cramps, bloating, and constipation. A complication of this condition is called diverticulitis. This is when the diverticulum become inflamed and infected. How to treat diverticulosis: Increasing the amount of fiber in the diet may reduce symptoms of diverticulosis and prevent complications such as diverticulitis (infected diverticuli). Fiber keeps stool soft and lowers pressure inside the colon so that bowel contents can move through easily. You should eat 20 to 35 grams of fiber each day. The table below shows the amount of fiber in some foods that you can easily add to your diet. Adding fiber slowly may decrease the bloating and fullness sometimes felt with an immediate high fiber diet. The doctor may also recommend taking a fiber product such as Citrucel or Metamucil once a day. In the past people with diverticulosis were to avoid nuts, corn, and seeds. This has not been found to be true. If you find that certain foods create cramping or bloating, avoid that food. Foods high in fiber include: Fresh fruits, fresh vegetables, legumes (beans), whole wheat bread, bran muffins or cereal, and nuts. See the table below for examples of high fiber foods. Remember, your goal is 20-35 grams per day. Amount of fiber in different foods Food Serving Grams of fiber Fruits Apple (with skin) 1 medium apple 4.4 Banana 1 medium banana 3.1 Oranges 1 orange 3.1 Prunes 1 cup, pitted 12.4 Juices Apple, unsweetened, w/added ascorbic acid 1 cup 0.5 Grapefruit, white, canned, sweetened 1 cup 0.2 Grape, unsweetened, w/added ascorbic acid 1 cup 0.5 [place] 1 cup 0.7 Vegetables Cooked Green beans 1 cup 4.0 Carrots 1/2 cup sliced 2.3 Peas 1 cup 8.8 Potato (baked, with skin) 1 medium potato 3.8 Raw [place] (with peel) 1 cucumber 1.5 Lettuce 1 cup shredded 0.5 Tomato 1 medium tomato 1.5 Spinach 1 cup 0.7 Legumes Baked beans, canned, no salt added 1 cup 13.9 Kidney beans, canned 1 cup 13.6 [place] beans, canned 1 cup 11.6 Lentils, boiled 1 cup 15.6 Breads, pastas, flours Bran muffins 1 medium muffin 5.2 Oatmeal, cooked 1 cup 4.0 White bread 1 slice 0.6 Whole-wheat bread 1 slice 1.9 Pasta and rice, cooked Macaroni 1 cup 2.5 Rice, brown 1 cup 3.5 Rice, white 1 cup 0.6 Spaghetti (regular) 1 cup 2.5 Nuts Almonds 1/2 cup 8.7 Peanuts 1/2 cup 7.9 Chart from [facility] 2013. SEEK IMMEDIATE MEDICAL CARE IF: You develop abdominal (belly) pain. An oral temperature above _ 101 F__develops. Repeated vomiting occurs. Blood is being passed in stools (bright red or black tarry stools). You develop any bowel problems or changes which you have not had before. Extra Information: To learn how much fiber and other nutrients are in different foods, visit the [place] Department of Agriculture (USDA) National Nutrient Database at: http://www.nal.usda.gov/fnic/food comp/search/ Created using data from the USDA National Nutrient Database for Standard Reference. Available at http://www.nal.usda.gov/fnic/food comp/search/. Information adapted from: [facility] Patient Information [address] [employer] [facility]. UpDate 2013 [email or web address] Follow Up Care 02/07/2022 10:39:23 With:Tyler CYN Address: [address] [place] [address] Business (1) When: Unknown Comments:office will call for follow up [facility] 08-15-2018 History of Past i llness Narrative Problem Noted Date Resolved Date Volume overload 08/15/2018 08/20/2018 Overview: History: Post-op problem. Weight up as much as 7.2 kg Assessment: (+) 3.2 kg. On IV lasix. Plan: Replace electrolytes prn. Montior labs, I/O. Monitor daily weight. Continue fluid restriction. Mobilize. Atelectasis 08/15/2018 08/19/2018 Overview: History: Post-op problem. Assessment: CXR 08/15 with sm effusions/bibasilar atelectasis. Plan: Mobilize now that on tele. Encourage PEP, cough and deep breathing. Pain control. Large RT penumothorax. 08/13/2018 8 Overview: History: Post-op problem. Developed near complete right pneumothorax 08/13 Assessment: CXR with resolved pneumo. On RA. Right pigtail removed 08.18.2018 without incident. Plan: Post-pull repeat CXR ipending. Continue COOK CHEF for pain related to catheter. Acute post-operative pain 08/12/20182017 Overview: History: post OHS Assessment: pain is well controlled with current regimen. Pt. requests COOK CHEF continue. Does have itching when takes Oxycodone, but states all pain meds causes this for him (no rash noted) Plan: Continue current regimen with lidoderm patches, Tylenol, Oxycodone/Tramadol, and COOK CHEF. Add Benadryl. Bowel regimen in place. Cardiac insufficiency 08/12/2018 08/14/2018 Overview: Normal biventricular function pre/post. On epinephrine from OR. Weaned to off. Mentating well. UO marginal (fluids administered) CVP wnl. ScvO2 71 LA wnl Postoperative hypotension 08/12/20182017 Overview: A/P: MAP 74 mmHg with goal 65-75 mmHg. On levophed. Wean able Stress hyperglycemia 08/12/2018 08/15/2018 Overview: SSI On mechanically assisted ventilation 08/12/2018 08/13/2018 Overview: A/P Intubated and sedate from OR. WTE. Secondary thrombocytopenia 08/12/201808/19 Overview: History: post-op problem. Plt count trended as low as 68k 08/14. Assessment: Improving to 77k. Plan: Continue ASA, SQ Heparin as tolerating with no further decline in plt count. Preop testing 08/11/2018 08/15/2018 [facility] Surgeon: Onel Briggs M.D. Informed Consent Completed: Yes STS Score: N/A CAD: No Is intended procedure a CABG: No - is a beta xiao ordered? N/A H & P completed: Yes PA/LAT: N/A CTA: Completed MRI: N/A LE US: N/A Cath: Yes - reviewed: Yes Echo:Completed EKG: Completed EF %: 55 PI's: N/A Carotid: N/A Mapping: N/A Dental: Completed- document to be scanned PFT's: N/A 06/26/18 WBC 4.57 HB 13.3 HCT 41.9 PLT 143 PTT 30.5 PT 11.1 INR 1.1 NA 142 K 4.6 BUN 17 CREAT 1.06 UA: Normal HCG:N/A ABO/ABO Confirmed: Yes Blood ordered: No SA Swab: Yes - results: Pending Last Dose of Anticoagulation: not on A/C d/t GIB history. Last dose of OTC/Vit on 08/07/18 Op Note: No Pacemaker Check: N/A Implants: no Consults: None DM: No Cardiac Surgical prep: N/A SIGNATURE: Belia Gardner APRN.INSTRUMENT TECHNICIAN HELPER CHECKED BY: DATE of SERVICE: 08/11/2018 TIME of SERVICE: 5:09 PM Ascending aortic aneurysm 2017 Dilated aortic root 08/15/2018 documented as of this encounter (statuses as of 03/23/2022) [facility] History of Past illness Narrative* Problem Noted Date Resolved Date Volume overload 08/15/2018 08/20/2018 Overview: History: Post-op problem. Weight up as much as 7.2 kg Assessment: (+) 3.2 kg. On IV lasix. Plan: Replace electrolytes prn. Montior labs, I/O. Monitor daily weight. Continue fluid restriction. Mobilize. Atelectasis 08/15/2018 08/19/2018 Overview: History: Post-op problem. Assessment: CXR 08/15 with sm effusions/bibasilar atelectasis. Plan: Mobilize now that on tele. Encourage PEP, cough and deep breathing. Pain control. Large RT penumothorax. 08/13/2018 8 Overview: History: Post-op problem. Developed near complete right pneumothorax 08/13 Assessment: CXR with resolved pneumo. On RA. Right pigtail removed 08.18.2018 without incident. Plan: Post-pull repeat CXR ipending. Continue COOK CHEF for pain related to catheter. Acute post-operative pain 08/12/20182017 Overview: History: post OHS Assessment: pain is well controlled with current regimen. Pt. requests COOK CHEF continue. Does have itching when takes Oxycodone, but states all pain meds causes this for him (no rash noted) Plan: Continue current regimen with lidoderm patches, Tylenol, Oxycodone/Tramadol, and COOK CHEF. Add Benadryl. Bowel regimen in place. Cardiac insufficiency 08/12/2018 08/14/2018 Overview: Normal biventricular function pre/post. On epinephrine from OR. Weaned to off. Mentating well. UO marginal (fluids administered) CVP wnl. ScvO2 71 LA wnl Postoperative hypotension 08/12/20182017 Overview: A/P: MAP 74 mmHg with goal 65-75 mmHg. On levophed. Wean able Stress hyperglycemia 08/12/2018 08/15/2018 Overview: SSI On mechanically assisted ventilation 08/12/2018 08/13/2018 Overview: A/P Intubated and sedate from OR. WTE. Secondary thrombocytopenia 08/12/201808/19 Overview: History: post-op problem. Plt count trended as low as 68k 08/14. Assessment: Improving to 77k. Plan: Continue ASA, SQ Heparin as tolerating with no further decline in plt count. Preop testing 08/11/2018 08/15/2018 Overview[facility] Surgeon: Onel Briggs M.D. Informed Consent Completed: Yes STS Score: N/A CAD: No Is intended procedure a CABG: No - is a beta xiao ordered? N/A H & P completed: Yes PA/LAT: N/A CTA: Completed MRI: N/A LE US: N/A Cath: Yes - reviewed: Yes Echo:Completed EKG: Completed EF %: 55 PI's: N/A Carotid: N/A Mapping: N/A Dental: Completed- document to be scanned PFT's: N/A 06/26/18 WBC 4.57 HB 13.3 HCT 41.9 PLT 143 PTT 30.5 PT 11.1 INR 1.1 NA 142 K 4.6 BUN 17 CREAT 1.06 UA: Normal HCG:N/A ABO/ABO Confirmed: Yes Blood ordered: No SA Swab: Yes - results: Pending Last Dose of Anticoagulation: not on A/C d/t GIB history. Last dose of OTC/Vit on 08/07/18 Op Note: No Pacemaker Check: N/A Implants: no Consults: None DM: No Cardiac Surgical prep: N/A SIGNATURE: Belia Gardner APRN.CNP CHECKED BY: DATE of SERVICE: 08/11/2018 TIME of SERVICE: 5:09 PM Ascending aortic aneurysm 2017 Dilated aortic root 08/15/2018 documented as of this encounter (statuses as of 03/28/2022) [facility] History of Past illness Narrative* Problem Noted Date Resolved Date Volume overload 08/15/2018 08/20/2018 Overview: History: Post-op problem. Weight up as much as 7.2 kg Assessment: (+) 3.2 kg. On IV lasix. Plan: Replace electrolytes prn. Montior labs, I/O. Monitor daily weight. Continue fluid restriction. Mobilize. Atelectasis 08/15/2018 08/19/2018 Overview: History: Post-op problem. Assessment: CXR 08/15 with sm effusions/bibasilar atelectasis. Plan: Mobilize now that on tele. Encourage PEP, cough and deep breathing. Pain control. Large RT penumothorax. 08/13/2018 8 Overview: History: Post-op problem. Developed near complete right pneumothorax 08/13 Assessment: CXR with resolved pneumo. On RA. Right pigtail removed 08.18.2018 without incident. Plan: Post-pull repeat CXR ipending. Continue COOK CHEF for pain related to catheter. Acute post-operative pain 08/12/20182017 Overview: History: post OHS Assessment: pain is well controlled with current regimen. Pt. requests COOK CHEF continue. Does have itching when takes Oxycodone, but states all pain meds causes this for him (no rash noted) Plan: Continue current regimen with lidoderm patches, Tylenol, Oxycodone/Tramadol, and COOK CHEF. Add Benadryl. Bowel regimen in place. Cardiac insufficiency 08/12/2018 08/14/2018 Overview: Normal biventricular function pre/post. On epinephrine from OR. Weaned to off. Mentating well. UO marginal (fluids administered) CVP wnl. ScvO2 71 LA wnl Postoperative hypotension 08/12/20182017 Overview: A/P: MAP 74 mmHg with goal 65-75 mmHg. On levophed. Wean able Stress hyperglycemia 08/12/2018 08/15/2018 Overview: SSI On mechanically assisted ventilation 08/12/2018 08/13/2018 Overview: A/P Intubated and sedate from OR. WTE. Secondary thrombocytopenia 08/12/201808/19 Overview: History: post-op problem. Plt count trended as low as 68k 08/14. Assessment: Improving to 77k. Plan: Continue ASA, SQ Heparin as tolerating with no further decline in plt count. Preop testing 08/11/2018 08/15/2018 Overview[facility] Surgeon: Onel Briggs M.D. Informed Consent Completed: Yes STS Score: N/A CAD: No Is intended procedure a CABG: No - is a beta xiao ordered? N/A H & P completed: Yes PA/LAT: N/A CTA: Completed MRI: N/A LE US: N/A Cath: Yes - reviewed: Yes Echo:Completed EKG: Completed EF %: 55 PI's: N/A Carotid: N/A Mapping: N/A Dental: Completed- document to be scanned PFT's: N/A 06/26/18 WBC 4.57 HB 13.3 HCT 41.9 PLT 143 PTT 30.5 PT 11.1 INR 1.1 NA 142 K 4.6 BUN 17 CREAT 1.06 UA: Normal HCG:N/A ABO/ABO Confirmed: Yes Blood ordered: No SA Swab: Yes - results: Pending Last Dose of Anticoagulation: not on A/C d/t GIB history. Last dose of OTC/Vit on 08/07/18 Op Note: No Pacemaker Check: N/A Implants: no Consults: None DM: No Cardiac Surgical prep: N/A SIGNATURE: Belia Gardner APRN.CNP CHECKED BY: DATE of SERVICE: 08/11/2018 TIME of SERVICE: 5:09 PM Ascending aortic aneurysm 2017 Dilated aortic root 08/15/2018 documented as of this encounter (statuses as of 04/12/2022) [facility]09-21-2018 History of Past illness Narrative* Problem Noted Date Resolved Date Volume overload 08/15/2018 08/20/2018 Overview: History: Post-op problem. Weight up as much as 7.2 kg Assessment: (+) 3.2 kg. On IV lasix. Plan: Replace electrolytes prn. Montior labs, I/O. Monitor daily weight. Continue fluid restriction. Mobilize. Atelectasis 08/15/2018 08/19/2018 Overview: History: Post-op problem. Assessment: CXR 08/15 with sm effusions/bibasilar atelectasis. Plan: Mobilize now that on tele. Encourage PEP, cough and deep breathing. Pain control. Large RT penumothorax. 08/13/2018 8 Overview: History: Post-op problem. Developed near complete right pneumothorax 08/13 Assessment: CXR with resolved pneumo. On RA. Right pigtail removed 08.18.2018 without incident. Plan: Post-pull repeat CXR ipending. Continue COOK CHEF for pain related to catheter. Acute post-operative pain 08/12/20182017 Overview: History: post OHS Assessment: pain is well controlled with current regimen. Pt. requests COOK CHEF continue. Does have itching when takes Oxycodone, but states all pain meds causes this for him (no rash noted) Plan: Continue current regimen with lidoderm patches, Tylenol, Oxycodone/Tramadol, and COOK CHEF. Add Benadryl. Bowel regimen in place. Cardiac insufficiency 08/12/2018 08/14/2018 Overview: Normal biventricular function pre/post. On epinephrine from OR. Weaned to off. Mentating well. UO marginal (fluids administered) CVP wnl. ScvO2 71 LA wnl Postoperative hypotension 08/12/20182017 Overview: A/P: MAP 74 mmHg with goal 65-75 mmHg. On levophed. Wean able Stress hyperglycemia 08/12/2018 08/15/2018 Overview: SSI On mechanically assisted ventilation 08/12/2018 08/13/2018 Overview: A/P Intubated and sedate from OR. WTE. Secondary thrombocytopenia 08/12/201808/19 Overview: History: post-op problem. Plt count trended as low as 68k 08/14. Assessment: Improving to 77k. Plan: Continue ASA, SQ Heparin as tolerating with no further decline in plt count. Preop testing 08/11/2018 08/15/2018 Overview: [facility] Surgeon: Onel Briggs M.D. Informed Consent Completed: Yes STS Score: N/A CAD: No Is intended procedure a CABG: No - is a beta xiao ordered? N/A H & P completed: Yes PA/LAT: N/A CTA: Completed MRI: N/A LE US: N/A Cath: Yes - reviewed: Yes Echo:Completed EKG: Completed EF %: 55 PI's: N/A Carotid: N/A Mapping: N/A Dental: Completed- document to be scanned PFT's: N/A 06/26/18 WBC 4.57 HB 13.3 HCT 41.9 PLT 143 PTT 30.5 PT 11.1 INR 1.1 NA 142 K 4.6 BUN 17 CREAT 1.06 UA: Normal HCG:N/A ABO/ABO Confirmed: Yes Blood ordered: No SA Swab: Yes - results: Pending Last Dose of Anticoagulation: not on A/C d/t GIB history. Last dose of OTC/Vit on 08/07/18 Op Note: No Pacemaker Check: N/A Implants: no Consults: None DM: No Cardiac Surgical prep: N/A SIGNATURE: Belia Gardner APRN.CNP CHECKED BY: DATE of SERVICE: 08/11/2018 TIME of SERVICE: 5:09 PM Ascending aortic aneurysm 2017 Dilated aortic root 08/15/2018 documented as of this encounter (statuses as of 08/10/2022) [facility]09-[facility]2018 History of Past illness Narrative* Problem Noted Date Resolved Date Volume overload 08/15/2018 08/20/2018 Overview: History: Post-op problem. Weight up as much as 7.2 kg Assessment: (+) 3.2 kg. On IV lasix. Plan: Replace electrolytes prn. Montior labs, I/O. Monitor daily weight. Continue fluid restriction. Mobilize. Atelectasis 08/15/2018 08/19/2018 Overview: History: Post-op problem. Assessment: CXR 08/15 with sm effusions/bibasilar atelectasis. Plan: Mobilize now that on tele. Encourage PEP, cough and deep breathing. Pain control. Large RT penumothorax. 08/13/2018 8 Overview: History: Post-op problem. Developed near complete right pneumothorax 08/13 Assessment: CXR with resolved pneumo. On RA. Right pigtail removed 08.18.2018 without incident. Plan: Post-pull repeat CXR ipending. Continue COOK CHEF for pain related to catheter. Acute post-operative pain 08/12/20182017 Overview: History: post OHS Assessment: pain is well controlled with current regimen. Pt. requests COOK CHEF continue. Does have itching when takes Oxycodone, but states all pain meds causes this for him (no rash noted) Plan: Continue current regimen with lidoderm patches, Tylenol, Oxycodone/Tramadol, and COOK CHEF. Add Benadryl. Bowel regimen in place. Cardiac insufficiency 08/12/2018 08/14/2018 Overview: Normal biventricular function pre/post. On epinephrine from OR. Weaned to off. Mentating well. UO marginal (fluids administered) CVP wnl. ScvO2 71 LA wnl Postoperative hypotension 08/12/20182017 Overview: A/P: MAP 74 mmHg with goal 65-75 mmHg. On levophed. Wean able Stress hyperglycemia 08/12/2018 08/15/2018 Overview: SSI On mechanically assisted ventilation 08/12/2018 08/13/2018 Overview: A/P Intubated and sedate from OR. WTE. Secondary thrombocytopenia 08/12/201808/19 Overview: History: post-op problem. Plt count trended as low as 68k 08/14. Assessment: Improving to 77k. Plan: Continue ASA, SQ Heparin as tolerating with no further decline in plt count. Preop testing 08/11/2018 08/15/2018 Overview: [facility] Surgeon: Onel Briggs M.D. Informed Consent Completed: Yes STS Score: N/A CAD: No Is intended procedure a CABG: No - is a beta xiao ordered? N/A H & P completed: Yes PA/LAT: N/A CTA: Completed MRI: N/A LE US: N/A Cath: Yes - reviewed: Yes Echo:Completed EKG: Completed EF %: 55 PI's: N/A Carotid: N/A Mapping: N/A Dental: Completed- document to be scanned PFT's: N/A 06/26/18 WBC 4.57 HB 13.3 HCT 41.9 PLT 143 PTT 30.5 PT 11.1 INR 1.1 NA 142 K 4.6 BUN 17 CREAT 1.06 UA: Normal HCG:N/A ABO/ABO Confirmed: Yes Blood ordered: No SA Swab: Yes - results: Pending Last Dose of Anticoagulation: not on A/C d/t GIB history. Last dose of OTC/Vit on 08/07/18 Op Note: No Pacemaker Check: N/A Implants: no Consults: None DM: No Cardiac Surgical prep: N/A SIGNATURE: Belia Gardner APRN.CNP CHECKED BY: DATE of SERVICE: 08/11/2018 TIME of SERVICE: 5:09 PM Ascending aortic aneurysm 2017 Dilated aortic root 08/15/2018 documented as of this encounter (statuses as of 08/15/2022) [facility]09[facility]2018 History of Past illness Narrative* Problem Noted Date Resolved Date Volume overload 08/15/2018 08/20/2018 Overview: History: Post-op problem. Weight up as much as 7.2 kg Assessment: (+) 3.2 kg. On IV lasix. Plan: Replace electrolytes prn. Montior labs, I/O. Monitor daily weight. Continue fluid restriction. Mobilize. Atelectasis 08/15/2018 08/19/2018 Overview: History: Post-op problem. Assessment: CXR 08/15 with sm effusions/bibasilar atelectasis. Plan: Mobilize now that on tele. Encourage PEP, cough and deep breathing. Pain control. Large RT penumothorax. 08/13/2018 8 Overview: History: Post-op problem. Developed near complete right pneumothorax 08/13 Assessment: CXR with resolved pneumo. On RA. Right pigtail removed 08.18.2018 without incident. Plan: Post-pull repeat CXR ipending. Continue COOK CHEF for pain related to catheter. Acute post-operative pain 08/12/20182017 Overview: History: post OHS Assessment: pain is well controlled with current regimen. Pt. requests COOK CHEF continue. Does have itching when takes Oxycodone, but states all pain meds causes this for him (no rash noted) Plan: Continue current regimen with lidoderm patches, Tylenol, Oxycodone/Tramadol, and COOK CHEF. Add Benadryl. Bowel regimen in place. Cardiac insufficiency 08/12/2018 08/14/2018 Overview: Normal biventricular function pre/post. On epinephrine from OR. Weaned to off. Mentating well. UO marginal (fluids administered) CVP wnl. ScvO2 71 LA wnl Postoperative hypotension 08/12/20182017 Overview: A/P: MAP 74 mmHg with goal 65-75 mmHg. On levophed. Wean able Stress hyperglycemia 08/12/2018 08/15/2018 Overview: SSI On mechanically assisted ventilation 08/12/2018 08/13/2018 Overview: A/P Intubated and sedate from OR. WTE. Secondary thrombocytopenia 08/12/201808/19 Overview: History: post-op problem. Plt count trended as low as 68k 08/14. Assessment: Improving to 77k. Plan: Continue ASA, SQ Heparin as tolerating with no further decline in plt count. Preop testing 08/11/2018 08/15/2018 Overview: [facility] Surgeon: Onel Briggs M.D. Informed Consent Completed: Yes STS Score: N/A CAD: No Is intended procedure a CABG: No - is a beta xiao ordered? N/A H & P completed: Yes PA/LAT: N/A CTA: Completed MRI: N/A LE US: N/A Cath: Yes - reviewed: Yes Echo:Completed EKG: Completed EF %: 55 PI's: N/A Carotid: N/A Mapping: N/A Dental: Completed- document to be scanned PFT's: N/A 06/26/18 WBC 4.57 HB 13.3 HCT 41.9 PLT 143 PTT 30.5 PT 11.1 INR 1.1 NA 142 K 4.6 BUN 17 CREAT 1.06 UA: Normal HCG:N/A ABO/ABO Confirmed: Yes Blood ordered: No SA Swab: Yes - results: Pending Last Dose of Anticoagulation: not on A/C d/t GIB history. Last dose of OTC/Vit on 08/07/18 Op Note: No Pacemaker Check: N/A Implants: no Consults: None DM: No Cardiac Surgical prep: N/A SIGNATURE: Belia Gardner APRN.INSTRUMENT TECHNICIAN HELPER CHECKED BY: DATE of SERVICE: 08/11/2018 TIME of SERVICE: 5:09 PM Ascending aortic aneurysm 2017 Dilated aortic root 08/15/2018 documented as of this encounter (statuses as of 10/15/2022) [facility]09[facility]2018 History of Past illness Narrative* Problem Noted Date Resolved Date Volume overload 08/15/2018 08/20/2018 Overview: History: Post-op problem. Weight up as much as 7.2 kg Assessment: (+) 3.2 kg. On IV lasix. Plan: Replace electrolytes prn. Montior labs, I/O. Monitor daily weight. Continue fluid restriction. Mobilize. Atelectasis 08/15/2018 08/19/2018 Overview: History: Post-op problem. Assessment: CXR 08/15 with sm effusions/bibasilar atelectasis. Plan: Mobilize now that on tele. Encourage PEP, cough and deep breathing. Pain control. Large RT penumothorax. 08/13/2018 8 Overview: History: Post-op problem. Developed near complete right pneumothorax 08/13 Assessment: CXR with resolved pneumo. On RA. Right pigtail removed 08.18.2018 without incident. Plan: Post-pull repeat CXR ipending. Continue COOK CHEF for pain related to catheter. Acute post-operative pain 08/12/20182017 Overview: History: post OHS Assessment: pain is well controlled with current regimen. Pt. requests COOK CHEF continue. Does have itching when takes Oxycodone, but states all pain meds causes this for him (no rash noted) Plan: Continue current regimen with lidoderm patches, Tylenol, Oxycodone/Tramadol, and COOK CHEF. Add Benadryl. Bowel regimen in place. Cardiac insufficiency 08/12/2018 08/14/2018 Overview: Normal biventricular function pre/post. On epinephrine from OR. Weaned to off. Mentating well. UO marginal (fluids administered) CVP wnl. ScvO2 71 LA wnl Postoperative hypotension 08/12/20182017 Overview: A/P: MAP 74 mmHg with goal 65-75 mmHg. On levophed. Wean able Stress hyperglycemia 08/12/2018 08/15/2018 Overview: SSI On mechanically assisted ventilation 08/12/2018 08/13/2018 Overview: A/P Intubated and sedate from OR. WTE. Secondary thrombocytopenia 08/12/201808/19 Overview: History: post-op problem. Plt count trended as low as 68k 08/14. Assessment: Improving to 77k. Plan: Continue ASA, SQ Heparin as tolerating with no further decline in plt count. Preop testing 08/11/2018 08/15/2018 Overview: [facility] Surgeon: Onel Briggs M.D. Informed Consent Completed: Yes STS Score: N/A CAD: No Is intended procedure a CABG: No - is a beta xiao ordered? N/A H & P completed: Yes PA/LAT: N/A CTA: Completed MRI: N/A LE US: N/A Cath: Yes - reviewed: Yes Echo:Completed EKG: Completed EF %: 55 PI's: N/A Carotid: N/A Mapping: N/A Dental: Completed- document to be scanned PFT's: N/A 06/26/18 WBC 4.57 HB 13.3 HCT 41.9 PLT 143 PTT 30.5 PT 11.1 INR 1.1 NA 142 K 4.6 BUN 17 CREAT 1.06 UA: Normal HCG:N/A ABO/ABO Confirmed: Yes Blood ordered: No SA Swab: Yes - results: Pending Last Dose of Anticoagulation: not on A/C d/t GIB history. Last dose of OTC/Vit on 08/07/18 Op Note: No Pacemaker Check: N/A Implants: no Consults: None DM: No Cardiac Surgical prep: N/A SIGNATURE: Belia Gardner APRN.INSTRUMENT TECHNICIAN HELPER CHECKED BY: DATE of SERVICE: 08/11/2018 TIME of SERVICE: 5:09 PM Ascending aortic aneurysm 2017 Dilated aortic root 08/15/2018 documented as of this encounter (statuses as of 11/12/2022) [facility]2018 History of Past illness Narrative* Problem Noted Date Resolved Date Volume overload 08/15/2018 08/20/2018 Overview: History: Post-op problem. Weight up as much as 7.2 kg Assessment: (+) 3.2 kg. On IV lasix. Plan: Replace electrolytes prn. Montior labs, I/O. Monitor daily weight. Continue fluid restriction. Mobilize. Atelectasis 08/15/2018 08/19/2018 Overview: History: Post-op problem. Assessment: CXR 08/15 with sm effusions/bibasilar atelectasis. Plan: Mobilize now that on tele. Encourage PEP, cough and deep breathing. Pain control. Large RT penumothorax. 08/13/2018 8 Overview: History: Post-op problem. Developed near complete right pneumothorax 08/13 Assessment: CXR with resolved pneumo. On RA. Right pigtail removed 08.18.2018 without incident. Plan: Post-pull repeat CXR ipending. Continue COOK CHEF for pain related to catheter. Acute post-operative pain 08/12/20182017 Overview: History: post OHS Assessment: pain is well controlled with current regimen. Pt. requests COOK CHEF continue. Does have itching when takes Oxycodone, but states all pain meds causes this for him (no rash noted) Plan: Continue current regimen with lidoderm patches, Tylenol, Oxycodone/Tramadol, and COOK CHEF. Add Benadryl. Bowel regimen in place. Cardiac insufficiency 08/12/2018 08/14/2018 Overview: Normal biventricular function pre/post. On epinephrine from OR. Weaned to off. Mentating well. UO marginal (fluids administered) CVP wnl. ScvO2 71 LA wnl Postoperative hypotension 08/12/20182017 Overview: A/P: MAP 74 mmHg with goal 65-75 mmHg. On levophed. Wean able Stress hyperglycemia 08/12/2018 08/15/2018 Overview: SSI On mechanically assisted ventilation 08/12/2018 08/13/2018 Overview: A/P Intubated and sedate from OR. WTE. Secondary thrombocytopenia 08/12/201808/19 Overview: History: post-op problem. Plt count trended as low as 68k 08/14. Assessment: Improving to 77k. Plan: Continue ASA, SQ Heparin as tolerating with no further decline in plt count. Preop testing 08/11/2018 08/15/2018 Overview: [facility] Surgeon: Onel Briggs M.D. Informed Consent Completed: Yes STS Score: N/A CAD: No Is intended procedure a CABG: No - is a beta xiao ordered? N/A H & P completed: Yes PA/LAT: N/A CTA: Completed MRI: N/A LE US: N/A Cath: Yes - reviewed: Yes Echo:Completed EKG: Completed EF %: 55 PI's: N/A Carotid: N/A Mapping: N/A Dental: Completed- document to be scanned PFT's: N/A 06/26/18 WBC 4.57 HB 13.3 HCT 41.9 PLT 143 PTT 30.5 PT 11.1 INR 1.1 NA 142 K 4.6 BUN 17 CREAT 1.06 UA: Normal HCG:N/A ABO/ABO Confirmed: Yes Blood ordered: No SA Swab: Yes - results: Pending Last Dose of Anticoagulation: not on A/C d/t GIB history. Last dose of OTC/Vit on 08/07/18 Op Note: No Pacemaker Check: N/A Implants: no Consults: None DM: No Cardiac Surgical prep: N/A SIGNATURE: Belia Gardner APRN.CNP CHECKED BY: DATE of SERVICE: 08/11/2018 TIME of SERVICE: 5:09 PM Ascending aortic aneurysm 2017 Dilated aortic root 08/15/2018 documented as of this encounter (statuses as of 12/27/2022) [facility] History of Past illness Narrative* Problem Noted Date Resolved Date Volume overload 08/15/2018 08/20/2018 Overview: History: Post-op problem. Weight up as much as 7.2 kg Assessment: (+) 3.2 kg. On IV lasix. Plan: Replace electrolytes prn. Montior labs, I/O. Monitor daily weight. Continue fluid restriction. Mobilize. Atelectasis 08/15/2018 08/19/2018 Overview: History: Post-op problem. Assessment: CXR 08/15 with sm effusions/bibasilar atelectasis. Plan: Mobilize now that on tele. Encourage PEP, cough and deep breathing. Pain control. Large RT penumothorax. 08/13/2018 8 Overview: History: Post-op problem. Developed near complete right pneumothorax 08/13 Assessment: CXR with resolved pneumo. On RA. Right pigtail removed 08.18.2018 without incident. Plan: Post-pull repeat CXR ipending. Continue COOK CHEF for pain related to catheter. Acute post-operative pain 08/12/20182017 Overview: History: post OHS Assessment: pain is well controlled with current regimen. Pt. requests COOK CHEF continue. Does have itching when takes Oxycodone, but states all pain meds causes this for him (no rash noted) Plan: Continue current regimen with lidoderm patches, Tylenol, Oxycodone/Tramadol, and COOK CHEF. Add Benadryl. Bowel regimen in place. Cardiac insufficiency 08/12/2018 08/14/2018 Overview: Normal biventricular function pre/post. On epinephrine from OR. Weaned to off. Mentating well. UO marginal (fluids administered) CVP wnl. ScvO2 71 LA wnl Postoperative hypotension 08/12/20182017 Overview: A/P: MAP 74 mmHg with goal 65-75 mmHg. On levophed. Wean able Stress hyperglycemia 08/12/2018 08/15/2018 Overview: SSI On mechanically assisted ventilation 08/12/2018 08/13/2018 Overview: A/P Intubated and sedate from OR. WTE. Secondary thrombocytopenia 08/12/201808/19 Overview: History: post-op problem. Plt count trended as low as 68k 08/14. Assessment: Improving to 77k. Plan: Continue ASA, SQ Heparin as tolerating with no further decline in plt count. Preop testing 08/11/2018 08/15/2018 Overview: [facility] Surgeon: Onel Briggs M.D. Informed Consent Completed: Yes STS Score: N/A CAD: No Is intended procedure a CABG: No - is a beta xiao ordered? N/A H & P completed: Yes PA/LAT: N/A CTA: Completed MRI: N/A LE US: N/A Cath: Yes - reviewed: Yes Echo:Completed EKG: Completed EF %: 55 PI's: N/A Carotid: N/A Mapping: N/A Dental: Completed- document to be scanned PFT's: N/A 06/26/18 WBC 4.57 HB 13.3 HCT 41.9 PLT 143 PTT 30.5 PT 11.1 INR 1.1 NA 142 K 4.6 BUN 17 CREAT 1.06 UA: Normal HCG:N/A ABO/ABO Confirmed: Yes Blood ordered: No SA Swab: Yes - results: Pending Last Dose of Anticoagulation: not on A/C d/t GIB history. Last dose of OTC/Vit on 08/07/18 Op Note: No Pacemaker Check: N/A Implants: no Consults: None DM: No Cardiac Surgical prep: N/A SIGNATURE: Belia Gardner APRN.INSTRUMENT TECHNICIAN HELPER CHECKED BY: DATE of SERVICE: 08/11/2018 TIME of SERVICE: 5:09 PM Ascending aortic aneurysm 2017 Dilated aortic root 08/15/2018 documented as of this encounter (statuses as of 01/01/2023) [facility] History of Past illness Narrative* Problem Noted Date Resolved Date Volume overload 08/15/2018 08/20/2018 Overview: History: Post-op problem. Weight up as much as 7.2 kg Assessment: (+) 3.2 kg. On IV lasix. Plan: Replace electrolytes prn. Montior labs, I/O. Monitor daily weight. Continue fluid restriction. Mobilize. Atelectasis 08/15/2018 08/19/2018 Overview: History: Post-op problem. Assessment: CXR 08/15 with sm effusions/bibasilar atelectasis. Plan: Mobilize now that on tele. Encourage PEP, cough and deep breathing. Pain control. Large RT penumothorax. 08/13/201808/20/ 8 Overview: History: Post-op problem. Developed near complete right pneumothorax 08/13 Assessment: CXR with resolved pneumo. On RA. Right pigtail removed 08.18.2018 without incident. Plan: Post-pull repeat CXR ipending. Continue COOK CHEF for pain related to catheter. Acute post-operative pain 08/12/20182017 Overview: History: post OHS Assessment: pain is well controlled with current regimen. Pt. requests COOK CHEF continue. Does have itching when takes Oxycodone, but states all pain meds causes this for him (no rash noted) Plan: Continue current regimen with lidoderm patches, Tylenol, Oxycodone/Tramadol, and COOK CHEF. Add Benadryl. Bowel regimen in place. Cardiac insufficiency 08/12/2018 08/14/2018 Overview: Normal biventricular function pre/post. On epinephrine from OR. Weaned to off. Mentating well. UO marginal (fluids administered) CVP wnl. ScvO2 71 LA wnl Postoperative hypotension 08/12/20182017 Overview: A/P: MAP 74 mmHg with goal 65-75 mmHg. On levophed. Wean able Stress hyperglycemia 08/12/2018 08/15/2018 Overview: SSI On mechanically assisted ventilation 08/12/2018 08/13/2018 Overview: A/P Intubated and sedate from OR. WTE. Secondary thrombocytopenia 08/12/201808/19 Overview: History: post-op problem. Plt count trended as low as 68k 08/14. Assessment: Improving to 77k. Plan: Continue ASA, SQ Heparin as tolerating with no further decline in plt count. Preop testing 08/11/2018 08/15/2018 Overview: [facility] Surgeon: Onel Briggs M.D. Informed Consent Completed: Yes STS Score: N/A CAD: No Is intended procedure a CABG: No - is a beta xiao ordered? N/A H & P completed: Yes PA/LAT: N/A CTA: Completed MRI: N/A LE US: N/A Cath: Yes - reviewed: Yes Echo:Completed EKG: Completed EF %: 55 PI's: N/A Carotid: N/A Mapping: N/A Dental: Completed- document to be scanned PFT's: N/A 06/26/18 WBC 4.57 HB 13.3 HCT 41.9 PLT 143 PTT 30.5 PT 11.1 INR 1.1 NA 142 K 4.6 BUN 17 CREAT 1.06 UA: Normal HCG:N/A ABO/ABO Confirmed: Yes Blood ordered: No SA Swab: Yes - results: Pending Last Dose of Anticoagulation: not on A/C d/t GIB history. Last dose of OTC/Vit on 08/07/18 Op Note: No Pacemaker Check: N/A Implants: no Consults: None DM: No Cardiac Surgical prep: N/A SIGNATURE: Belia Gardner APRN.INSTRUMENT TECHNICIAN HELPER CHECKED BY: DATE of SERVICE: 08/11/2018 TIME of SERVICE: 5:09 PM Ascending aortic aneurysm 2017 Dilated aortic root 08/15/2018 documented as of this encounter (statuses as of 01/09/2023) [facility]09-21-2018 History of Past illness Narrative* Problem Noted Date Resolved Date Volume overload 08/15/2018 08/20/2018 Overview: History: Post-op problem. Weight up as much as 7.2 kg Assessment: (+) 3.2 kg. On IV lasix. Plan: Replace electrolytes prn. Montior labs, I/O. Monitor daily weight. Continue fluid restriction. Mobilize. Atelectasis 08/15/2018 08/19/2018 Overview: History: Post-op problem. Assessment: CXR 08/15 with sm effusions/bibasilar atelectasis. Plan: Mobilize now that on tele. Encourage PEP, cough and deep breathing. Pain control. Large RT penumothorax. 08/13/2018 8 Overview: History: Post-op problem. Developed near complete right pneumothorax 08/13 Assessment: CXR with resolved pneumo. On RA. Right pigtail removed 08.18.2018 without incident. Plan: Post-pull repeat CXR ipending. Continue COOK CHEF for pain related to catheter. Acute post-operative pain 08/12/20182017 Overview: History: post OHS Assessment: pain is well controlled with current regimen. Pt. requests COOK CHEF continue. Does have itching when takes Oxycodone, but states all pain meds causes this for him (no rash noted) Plan: Continue current regimen with lidoderm patches, Tylenol, Oxycodone/Tramadol, and COOK CHEF. Add Benadryl. Bowel regimen in place. Cardiac insufficiency 08/12/2018 08/14/2018 Overview: Normal biventricular function pre/post. On epinephrine from OR. Weaned to off. Mentating well. UO marginal (fluids administered) CVP wnl. ScvO2 71 LA wnl Postoperative hypotension 08/12/20182017 Overview: A/P: MAP 74 mmHg with goal 65-75 mmHg. On levophed. Wean able Stress hyperglycemia 08/12/2018 08/15/2018 Overview: SSI On mechanically assisted ventilation 08/12/2018 08/13/2018 Overview: A/P Intubated and sedate from OR. WTE. Secondary thrombocytopenia 08/12/201808/19 Overview: History: post-op problem. Plt count trended as low as 68k 08/14. Assessment: Improving to 77k. Plan: Continue ASA, SQ Heparin as tolerating with no further decline in plt count. Preop testing 08/11/2018 08/15/2018 Overview[facility] Surgeon: Onel Briggs M.D. Informed Consent Completed: Yes STS Score: N/A CAD: No Is intended procedure a CABG: No - is a beta xiao ordered? N/A H & P completed: Yes PA/LAT: N/A CTA: Completed MRI: N/A LE US: N/A Cath: Yes - reviewed: Yes Echo:Completed EKG: Completed EF %: 55 PI's: N/A Carotid: N/A Mapping: N/A Dental: Completed- document to be scanned PFT's: N/A 06/26/18 WBC 4.57 HB 13.3 HCT 41.9 PLT 143 PTT 30.5 PT 11.1 INR 1.1 NA 142 K 4.6 BUN 17 CREAT 1.06 UA: Normal HCG:N/A ABO/ABO Confirmed: Yes Blood ordered: No SA Swab: Yes - results: Pending Last Dose of Anticoagulation: not on A/C d/t GIB history. Last dose of OTC/Vit on 08/07/18 Op Note: No Pacemaker Check: N/A Implants: no Consults: None DM: No Cardiac Surgical prep: N/A SIGNATURE: Belia Gardner APRN.INSTRUMENT TECHNICIAN HELPER CHECKED BY: DATE of SERVICE: 08/11/2018 TIME of SERVICE: 5:09 PM Ascending aortic aneurysm 2017 Dilated aortic root 08/15/2018 documented as of this encounter (statuses as of 01/12/2023) [facility]09-21-2018 History of Past illness Narrative* Problem Noted Date Resolved Date Volume overload 08/15/2018 08/20/2018 Overview: History: Post-op problem. Weight up as much as 7.2 kg Assessment: (+) 3.2 kg. On IV lasix. Plan: Replace electrolytes prn. Montior labs, I/O. Monitor daily weight. Continue fluid restriction. Mobilize. Atelectasis 08/15/2018 08/19/2018 Overview: History: Post-op problem. Assessment: CXR 08/15 with sm effusions/bibasilar atelectasis. Plan: Mobilize now that on tele. Encourage PEP, cough and deep breathing. Pain control. Large RT penumothorax. 08/13/2018 8 Overview: History: Post-op problem. Developed near complete right pneumothorax 08/13 Assessment: CXR with resolved pneumo. On RA. Right pigtail removed 08.18.2018 without incident. Plan: Post-pull repeat CXR ipending. Continue COOK CHEF for pain related to catheter. Acute post-operative pain 08/12/20182017 Overview: History: post OHS Assessment: pain is well controlled with current regimen. Pt. requests COOK CHEF continue. Does have itching when takes Oxycodone, but states all pain meds causes this for him (no rash noted) Plan: Continue current regimen with lidoderm patches, Tylenol, Oxycodone/Tramadol, and COOK CHEF. Add Benadryl. Bowel regimen in place. Cardiac insufficiency 08/12/2018 08/14/2018 Overview: Normal biventricular function pre/post. On epinephrine from OR. Weaned to off. Mentating well. UO marginal (fluids administered) CVP wnl. ScvO2 71 LA wnl Postoperative hypotension 08/12/20182017 Overview: A/P: MAP 74 mmHg with goal 65-75 mmHg. On levophed. Wean able Stress hyperglycemia 08/12/2018 08/15/2018 Overview: SSI On mechanically assisted ventilation 08/12/2018 08/13/2018 Overview: A/P Intubated and sedate from OR. WTE. Secondary thrombocytopenia 08/12/201808/19 Overview: History: post-op problem. Plt count trended as low as 68k 08/14. Assessment: Improving to 77k. Plan: Continue ASA, SQ Heparin as tolerating with no further decline in plt count. Preop testing 08/11/2018 08/15/2018 Overview: [facility] Surgeon: Onel Briggs M.D. Informed Consent Completed: Yes STS Score: N/A CAD: No Is intended procedure a CABG: No - is a beta xiao ordered? N/A H & P completed: Yes PA/LAT: N/A CTA: Completed MRI: N/A LE US: N/A Cath: Yes - reviewed: Yes Echo:Completed EKG: Completed EF %: 55 PI's: N/A Carotid: N/A Mapping: N/A Dental: Completed- document to be scanned PFT's: N/A 06/26/18 WBC 4.57 HB 13.3 HCT 41.9 PLT 143 PTT 30.5 PT 11.1 INR 1.1 NA 142 K 4.6 BUN 17 CREAT 1.06 UA: Normal HCG:N/A ABO/ABO Confirmed: Yes Blood ordered: No SA Swab: Yes - results: Pending Last Dose of Anticoagulation: not on A/C d/t GIB history. Last dose of OTC/Vit on 08/07/18 Op Note: No Pacemaker Check: N/A Implants: no Consults: None DM: No Cardiac Surgical prep: N/A SIGNATURE: Belia Gardner APRN.INSTRUMENT TECHNICIAN HELPER CHECKED BY: DATE of SERVICE: 08/11/2018 TIME of SERVICE: 5:09 PM Ascending aortic aneurysm 2017 Dilated aortic root 08/15/2018 documented as of this encounter (statuses as of 01/12/2023) [facility]09-21-2018 History of Past illness Narrative* Problem Noted Date Resolved Date Volume overload 08/15/2018 08/20/2018 Overview: History: Post-op problem. Weight up as much as 7.2 kg Assessment: (+) 3.2 kg. On IV lasix. Plan: Replace electrolytes prn. Montior labs, I/O. Monitor daily weight. Continue fluid restriction. Mobilize. Atelectasis 08/15/2018 08/19/2018 Overview: History: Post-op problem. Assessment: CXR 08/15 with sm effusions/bibasilar atelectasis. Plan: Mobilize now that on tele. Encourage PEP, cough and deep breathing. Pain control. Large RT penumothorax. 08/13/2018 8 Overview: History: Post-op problem. Developed near complete right pneumothorax 08/13 Assessment: CXR with resolved pneumo. On RA. Right pigtail removed 08.18.2018 without incident. Plan: Post-pull repeat CXR ipending. Continue COOK CHEF for pain related to catheter. Acute post-operative pain 08/12/20182017 Overview: History: post OHS Assessment: pain is well controlled with current regimen. Pt. requests COOK CHEF continue. Does have itching when takes Oxycodone, but states all pain meds causes this for him (no rash noted) Plan: Continue current regimen with lidoderm patches, Tylenol, Oxycodone/Tramadol, and COOK CHEF. Add Benadryl. Bowel regimen in place. Cardiac insufficiency 08/12/2018 08/14/2018 Overview: Normal biventricular function pre/post. On epinephrine from OR. Weaned to off. Mentating well. UO marginal (fluids administered) CVP wnl. ScvO2 71 LA wnl Postoperative hypotension 08/12/20182017 Overview: A/P: MAP 74 mmHg with goal 65-75 mmHg. On levophed. Wean able Stress hyperglycemia 08/12/2018 08/15/2018 Overview: SSI On mechanically assisted ventilation 08/12/2018 08/13/2018 Overview: A/P Intubated and sedate from OR. WTE. Secondary thrombocytopenia 08/12/201808/19 Overview: History: post-op problem. Plt count trended as low as 68k 08/14. Assessment: Improving to 77k. Plan: Continue ASA, SQ Heparin as tolerating with no further decline in plt count. Preop testing 08/11/2018 08/15/2018 Overview: [facility] Surgeon: Onel Briggs M.D. Informed Consent Completed: Yes STS Score: N/A CAD: No Is intended procedure a CABG: No - is a beta xiao ordered? N/A H & P completed: Yes PA/LAT: N/A CTA: Completed MRI: N/A LE US: N/A Cath: Yes - reviewed: Yes Echo:Completed EKG: Completed EF %: 55 PI's: N/A Carotid: N/A Mapping: N/A Dental: Completed- document to be scanned PFT's: N/A 06/26/18 WBC 4.57 HB 13.3 HCT 41.9 PLT 143 PTT 30.5 PT 11.1 INR 1.1 NA 142 K 4.6 BUN 17 CREAT 1.06 UA: Normal HCG:N/A ABO/ABO Confirmed: Yes Blood ordered: No SA Swab: Yes - results: Pending Last Dose of Anticoagulation: not on A/C d/t GIB history. Last dose of OTC/Vit on 08/07/18 Op Note: No Pacemaker Check: N/A Implants: no Consults: None DM: No Cardiac Surgical prep: N/A SIGNATURE: Belia Gardner APRN.CNP CHECKED BY: DATE of SERVICE: 08/11/2018 TIME of SERVICE: 5:09 PM Ascending aortic aneurysm 2017 Dilated aortic root 08/15/2018 documented as of this encounter (statuses as of 02/06/2023) [facility]09-21-2018 History of Past illness Narrative* Problem Noted Date Resolved Date Volume overload 08/15/2018 08/20/2018 Overview: History: Post-op problem. Weight up as much as 7.2 kg Assessment: (+) 3.2 kg. On IV lasix. Plan: Replace electrolytes prn. Montior labs, I/O. Monitor daily weight. Continue fluid restriction. Mobilize. Atelectasis 08/15/2018 08/19/2018 Overview: History: Post-op problem. Assessment: CXR 08/15 with sm effusions/bibasilar atelectasis. Plan: Mobilize now that on tele. Encourage PEP, cough and deep breathing. Pain control. Large RT penumothorax. 08/13/2018 8 Overview: History: Post-op problem. Developed near complete right pneumothorax 08/13 Assessment: CXR with resolved pneumo. On RA. Right pigtail removed 08.18.2018 without incident. Plan: Post-pull repeat CXR ipending. Continue COOK CHEF for pain related to catheter. Acute post-operative pain 08/12/20182017 Overview: History: post OHS Assessment: pain is well controlled with current regimen. Pt. requests COOK CHEF continue. Does have itching when takes Oxycodone, but states all pain meds causes this for him (no rash noted) Plan: Continue current regimen with lidoderm patches, Tylenol, Oxycodone/Tramadol, and COOK CHEF. Add Benadryl. Bowel regimen in place. Cardiac insufficiency 08/12/2018 08/14/2018 Overview: Normal biventricular function pre/post. On epinephrine from OR. Weaned to off. Mentating well. UO marginal (fluids administered) CVP wnl. ScvO2 71 LA wnl Postoperative hypotension 08/12/20182017 Overview: A/P: MAP 74 mmHg with goal 65-75 mmHg. On levophed. Wean able Stress hyperglycemia 08/12/2018 08/15/2018 Overview: SSI On mechanically assisted ventilation 08/12/2018 08/13/2018 Overview: A/P Intubated and sedate from OR. WTE. Secondary thrombocytopenia 08/12/201808/19 Overview: History: post-op problem. Plt count trended as low as 68k 08/14. Assessment: Improving to 77k. Plan: Continue ASA, SQ Heparin as tolerating with no further decline in plt count. Preop testing 08/11/2018 08/15/2018 Overview: [facility] Surgeon: Onel Briggs M.D. Informed Consent Completed: Yes STS Score: N/A CAD: No Is intended procedure a CABG: No - is a beta xiao ordered? N/A H & P completed: Yes PA/LAT: N/A CTA: Completed MRI: N/A LE US: N/A Cath: Yes - reviewed: Yes Echo:Completed EKG: Completed EF %: 55 PI's: N/A Carotid: N/A Mapping: N/A Dental: Completed- document to be scanned PFT's: N/A 06/26/18 WBC 4.57 HB 13.3 HCT 41.9 PLT 143 PTT 30.5 PT 11.1 INR 1.1 NA 142 K 4.6 BUN 17 CREAT 1.06 UA: Normal HCG:N/A ABO/ABO Confirmed: Yes Blood ordered: No SA Swab: Yes - results: Pending Last Dose of Anticoagulation: not on A/C d/t GIB history. Last dose of OTC/Vit on 08/07/18 Op Note: No Pacemaker Check: N/A Implants: no Consults: None DM: No Cardiac Surgical prep: N/A SIGNATURE: Belia Gardner APRN.INSTRUMENT TECHNICIAN HELPER CHECKED BY: DATE of SERVICE: 08/11/2018 TIME of SERVICE: 5:09 PM Ascending aortic aneurysm 2017 Dilated aortic root 08/15/2018 documented as of this encounter (statuses as of 02/07/2023) [facility]09-21-2018 History of Past illness Narrative* Problem Noted Date Resolved Date Volume overload 08/15/2018 08/20/2018 Overview: History: Post-op problem. Weight up as much as 7.2 kg Assessment: (+) 3.2 kg. On IV lasix. Plan: Replace electrolytes prn. Montior labs, I/O. Monitor daily weight. Continue fluid restriction. Mobilize. Atelectasis 08/15/2018 08/19/2018 Overview: History: Post-op problem. Assessment: CXR 08/15 with sm effusions/bibasilar atelectasis. Plan: Mobilize now that on tele. Encourage PEP, cough and deep breathing. Pain control. Large RT penumothorax. 08/13/2018 8 Overview: History: Post-op problem. Developed near complete right pneumothorax 08/13 Assessment: CXR with resolved pneumo. On RA. Right pigtail removed 08.18.2018 without incident. Plan: Post-pull repeat CXR ipending. Continue COOK CHEF for pain related to catheter. Acute post-operative pain 08/12/20182017 Overview: History: post OHS Assessment: pain is well controlled with current regimen. Pt. requests COOK CHEF continue. Does have itching when takes Oxycodone, but states all pain meds causes this for him (no rash noted) Plan: Continue current regimen with lidoderm patches, Tylenol, Oxycodone/Tramadol, and COOK CHEF. Add Benadryl. Bowel regimen in place. Cardiac insufficiency 08/12/2018 08/14/2018 Overview: Normal biventricular function pre/post. On epinephrine from OR. Weaned to off. Mentating well. UO marginal (fluids administered) CVP wnl. ScvO2 71 LA wnl Postoperative hypotension 08/12/20182017 Overview: A/P: MAP 74 mmHg with goal 65-75 mmHg. On levophed. Wean able Stress hyperglycemia 08/12/2018 08/15/2018 Overview: SSI On mechanically assisted ventilation 08/12/2018 08/13/2018 Overview: A/P Intubated and sedate from OR. WTE. Secondary thrombocytopenia 08/12/201808/19 Overview: History: post-op problem. Plt count trended as low as 68k 08/14. Assessment: Improving to 77k. Plan: Continue ASA, SQ Heparin as tolerating with no further decline in plt count. Preop testing 08/11/2018 08/15/2018 Overview: [facility] Surgeon: Onel Briggs M.D. Informed Consent Completed: Yes STS Score: N/A CAD: No Is intended procedure a CABG: No - is a beta xiao ordered? N/A H & P completed: Yes PA/LAT: N/A CTA: Completed MRI: N/A LE US: N/A Cath: Yes - reviewed: Yes Echo:Completed EKG: Completed EF %: 55 PI's: N/A Carotid: N/A Mapping: N/A Dental: Completed- document to be scanned PFT's: N/A 06/26/18 WBC 4.57 HB 13.3 HCT 41.9 PLT 143 PTT 30.5 PT 11.1 INR 1.1 NA 142 K 4.6 BUN 17 CREAT 1.06 UA: Normal HCG:N/A ABO/ABO Confirmed: Yes Blood ordered: No SA Swab: Yes - results: Pending Last Dose of Anticoagulation: not on A/C d/t GIB history. Last dose of OTC/Vit on 08/07/18 Op Note: No Pacemaker Check: N/A Implants: no Consults: None DM: No Cardiac Surgical prep: N/A SIGNATURE: Belia Gardner APRN.INSTRUMENT TECHNICIAN HELPER CHECKED BY: DATE of SERVICE: 08/11/2018 TIME of SERVICE: 5:09 PM Ascending aortic aneurysm 2017 Dilated aortic root 08/15/2018 documented as of this encounter (statuses as of 02/12/2023) [facility]09-21-2018 History of Past illness Narrative* Problem Noted Date Resolved Date Volume overload 08/15/2018 08/20/2018 Overview: History: Post-op problem. Weight up as much as 7.2 kg Assessment: (+) 3.2 kg. On IV lasix. Plan: Replace electrolytes prn. Montior labs, I/O. Monitor daily weight. Continue fluid restriction. Mobilize. Atelectasis 08/15/2018 08/19/2018 Overview: History: Post-op problem. Assessment: CXR 08/15 with sm effusions/bibasilar atelectasis. Plan: Mobilize now that on tele. Encourage PEP, cough and deep breathing. Pain control. Large RT penumothorax. 08/13/2018 8 Overview: History: Post-op problem. Developed near complete right pneumothorax 08/13 Assessment: CXR with resolved pneumo. On RA. Right pigtail removed 08.18.2018 without incident. Plan: Post-pull repeat CXR ipending. Continue COOK CHEF for pain related to catheter. Acute post-operative pain 08/12/20182017 Overview: History: post OHS Assessment: pain is well controlled with current regimen. Pt. requests COOK CHEF continue. Does have itching when takes Oxycodone, but states all pain meds causes this for him (no rash noted) Plan: Continue current regimen with lidoderm patches, Tylenol, Oxycodone/Tramadol, and COOK CHEF. Add Benadryl. Bowel regimen in place. Cardiac insufficiency 08/12/2018 08/14/2018 Overview: Normal biventricular function pre/post. On epinephrine from OR. Weaned to off. Mentating well. UO marginal (fluids administered) CVP wnl. ScvO2 71 LA wnl Postoperative hypotension 08/12/20182017 Overview: A/P: MAP 74 mmHg with goal 65-75 mmHg. On levophed. Wean able Stress hyperglycemia 08/12/2018 08/15/2018 Overview: SSI On mechanically assisted ventilation 08/12/2018 08/13/2018 Overview: A/P Intubated and sedate from OR. WTE. Secondary thrombocytopenia 08/12/201808/19 Overview: History: post-op problem. Plt count trended as low as 68k 08/14. Assessment: Improving to 77k. Plan: Continue ASA, SQ Heparin as tolerating with no further decline in plt count. Preop testing 08/11/2018 08/15/2018 Overview: [facility] Surgeon: Onel Briggs M.D. Informed Consent Completed: Yes STS Score: N/A CAD: No Is intended procedure a CABG: No - is a beta xiao ordered? N/A H & P completed: Yes PA/LAT: N/A CTA: Completed MRI: N/A LE US: N/A Cath: Yes - reviewed: Yes Echo:Completed EKG: Completed EF %: 55 PI's: N/A Carotid: N/A Mapping: N/A Dental: Completed- document to be scanned PFT's: N/A 06/26/18 WBC 4.57 HB 13.3 HCT 41.9 PLT 143 PTT 30.5 PT 11.1 INR 1.1 NA 142 K 4.6 BUN 17 CREAT 1.06 UA: Normal HCG:N/A ABO/ABO Confirmed: Yes Blood ordered: No SA Swab: Yes - results: Pending Last Dose of Anticoagulation: not on A/C d/t GIB history. Last dose of OTC/Vit on 08/07/18 Op Note: No Pacemaker Check: N/A Implants: no Consults: None DM: No Cardiac Surgical prep: N/A SIGNATURE: Belia Gardner APRN.INSTRUMENT TECHNICIAN HELPER CHECKED BY: DATE of SERVICE: 08/11/2018 TIME of SERVICE: 5:09 PM Ascending aortic aneurysm 2017 Dilated aortic root 08/15/2018 documented as of this encounter (statuses as of 03/13/2023) [facility]09-[facility]-2018 History of Past illness Narrative* Problem Noted Date Diagnosed Date Resolved Date Volume overload 08/15/2018 08/20/2018 Overview: History: Post-op problem. Weight up as much as 7.2 kg Assessment: (+) 3.2 kg. On IV lasix. Plan: Replace electrolytes prn. Montior labs, I/O. Monitor daily weight. Continue fluid restriction. Mobilize. Atelectasis 08/15/2018 08/19/2018 Overview: History: Post-op problem. Assessment: CXR 08/15 with sm effusions/bibasilar atelectasis. Plan: Mobilize now that on tele. Encourage PEP, cough and deep breathing. Pain control. Large RT penumothorax. 08/13/201808/20 Overview: History: Post-op problem. Developed near complete right pneumothorax 08/13 Assessment: CXR with resolved pneumo. On RA. Right pigtail removed 08.18.2018 without incident. Plan: Post-pull repeat CXR ipending. Continue COOK CHEF for pain related to catheter. Acute post-operative pain 08/12/2018 Overview: History: post OHS Assessment: pain is well controlled with current regimen. Pt. requests COOK CHEF continue. Does have itching when takes Oxycodone, but states all pain meds causes this for him (no rash noted) Plan: Continue current regimen with lidoderm patches, Tylenol, Oxycodone/Tramadol, and COOK CHEF. Add Benadryl. Bowel regimen in place. Cardiac insufficiency 08/12/20182017 Overview: Normal biventricular function pre/post. On epinephrine from OR. Weaned to off. Mentating well. UO marginal (fluids administered) CVP wnl. ScvO2 71 LA wnl Postoperative hypotension 08/12/2018 Overview: A/P: MAP 74 mmHg with goal 65-75 mmHg. On levophed. Wean able Stress hyperglycemia 08/12/2018 018 Overview: SSI On mechanically assisted ventilation 08/12/2018 08/13/2018 Overview: A/P Intubated and sedate from OR. WTE. 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 Plt count trended as low as 68k 08/14. Assessment: Improving to 77k. Plan: Continue ASA, SQ Heparin as tolerating with no further decline in plt count. Preop testing 08/11/2018 08/15/2018 Overview: [facility] Surgeon: Onel Briggs M.D. Informed Consent Completed: Yes STS Score: N/A CAD: No Is intended procedure a CABG: No - is a beta xiao ordered? N/A H & P completed: Yes PA/LAT: N/A CTA: Completed MRI: N/A LE US: N/A Cath: Yes - reviewed: Yes Echo:Completed EKG: Completed EF %: 55 PI's: N/A Carotid: N/A Mapping: N/A Dental: Completed- document to be scanned PFT's: N/A 06/26/18 WBC 4.57 HB 13.3 HCT 41.9 PLT 143 PTT 30.5 PT 11.1 INR 1.1 NA 142 K 4.6 BUN 17 CREAT 1.06 UA: Normal HCG:N/A ABO/ABO Confirmed: Yes Blood ordered: No SA Swab: Yes - results: Pending Last Dose of Anticoagulation: not on A/C d/t GIB history. Last dose of OTC/Vit on 08/07/18 Op Note: No Pacemaker Check: N/A Implants: no Consults: None DM: No Cardiac Surgical prep: N/A SIGNATURE: Belia Gardner APRN.INSTRUMENT TECHNICIAN HELPER CHECKED BY: DATE of SERVICE: 08/11/2018 TIME of SERVICE: 5:09 PM Ascending aortic aneurysm Dilated aortic root 08/15/20 18 documented as of this encounter (statuses as of 06/05/2023) [facility]09[facility]2018 History of Past illness Narrative* Problem Noted Date Diagnosed Date Resolved Date Volume overload 08/15/2018 08/20/2018 Overview: History: Post-op problem. Weight up as much as 7.2 kg Assessment: (+) 3.2 kg. On IV lasix. Plan: Replace electrolytes prn. Montior labs, I/O. Monitor daily weight. Continue fluid restriction. Mobilize. Atelectasis 08/15/2018 08/19/2018 Overview: History: Post-op problem. Assessment: CXR 08/15 with sm effusions/bibasilar atelectasis. Plan: Mobilize now that on tele. Encourage PEP, cough and deep breathing. Pain control. Large RT penumothorax. 08/13/201808/20 Overview: History: Post-op problem. Developed near complete right pneumothorax 08/13 Assessment: CXR with resolved pneumo. On RA. Right pigtail removed 08.18.2018 without incident. Plan: Post-pull repeat CXR ipending. Continue COOK CHEF for pain related to catheter. Acute post-operative pain 08/12/2018 Overview: History: post OHS Assessment: pain is well controlled with current regimen. Pt. requests COOK CHEF continue. Does have itching when takes Oxycodone, but states all pain meds causes this for him (no rash noted) Plan: Continue current regimen with lidoderm patches, Tylenol, Oxycodone/Tramadol, and COOK CHEF. Add Benadryl. Bowel regimen in place. Cardiac insufficiency 08/12/20182017 Overview: Normal biventricular function pre/post. On epinephrine from OR. Weaned to off. Mentating well. UO marginal (fluids administered) CVP wnl. ScvO2 71 LA wnl Postoperative hypotension 08/12/2018 Overview: A/P: MAP 74 mmHg with goal 65-75 mmHg. On levophed. Wean able Stress hyperglycemia 08/12/2018 018 Overview: SSI On mechanically assisted ventilation 08/12/2018 08/13/2018 Overview: A/P Intubated and sedate from OR. WTE. 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 Plt count trended as low as 68k 08/14. Assessment: Improving to 77k. Plan: Continue ASA, SQ Heparin as tolerating with no further decline in plt count. Preop testing 08/11/2018 08/15/2018 Overview: [facility] Surgeon: Onel Briggs M.D. Informed Consent Completed: Yes STS Score: N/A CAD: No Is intended procedure a CABG: No - is a beta xiao ordered? N/A H & P completed: Yes PA/LAT: N/A CTA: Completed MRI: N/A LE US: N/A Cath: Yes - reviewed: Yes Echo:Completed EKG: Completed EF %: 55 PI's: N/A Carotid: N/A Mapping: N/A Dental: Completed- document to be scanned PFT's: N/A 06/26/18 WBC 4.57 HB 13.3 HCT 41.9 PLT 143 PTT 30.5 PT 11.1 INR 1.1 NA 142 K 4.6 BUN 17 CREAT 1.06 UA: Normal HCG:N/A ABO/ABO Confirmed: Yes Blood ordered: No SA Swab: Yes - results: Pending Last Dose of Anticoagulation: not on A/C d/t GIB history. Last dose of OTC/Vit on 08/07/18 Op Note: No Pacemaker Check: N/A Implants: no Consults: None DM: No Cardiac Surgical prep: N/A SIGNATURE: Belia Gardner APRN.INSTRUMENT TECHNICIAN HELPER CHECKED BY: DATE of SERVICE: 08/11/2018 TIME of SERVICE: 5:09 PM Ascending aortic aneurysm Dilated aortic root 08/15/20 18 documented as of this encounter (statuses as of 07/08/2023) [facility]09[facility]2018 History of Past illness Narrative* Problem Noted Date Diagnosed Date Resolved Date Volume overload 08/15/2018 08/20/2018 Overview: History: Post-op problem. Weight up as much as 7.2 kg Assessment: (+) 3.2 kg. On IV lasix. Plan: Replace electrolytes prn. Montior labs, I/O. Monitor daily weight. Continue fluid restriction. Mobilize. Atelectasis 08/15/2018 08/19/2018 Overview: History: Post-op problem. Assessment: CXR 08/15 with sm effusions/bibasilar atelectasis. Plan: Mobilize now that on tele. Encourage PEP, cough and deep breathing. Pain control. Large RT penumothorax. 08/13/201808/20 Overview: History: Post-op problem. Developed near complete right pneumothorax 08/13 Assessment: CXR with resolved pneumo. On RA. Right pigtail removed 08.18.2018 without incident. Plan: Post-pull repeat CXR ipending. Continue COOK CHEF for pain related to catheter. Acute post-operative pain 08/12/2018 Overview: History: post OHS Assessment: pain is well controlled with current regimen. Pt. requests COOK CHEF continue. Does have itching when takes Oxycodone, but states all pain meds causes this for him (no rash noted) Plan: Continue current regimen with lidoderm patches, Tylenol, Oxycodone/Tramadol, and COOK CHEF. Add Benadryl. Bowel regimen in place. Cardiac insufficiency 08/12/20182017 Overview: Normal biventricular function pre/post. On epinephrine from OR. Weaned to off. Mentating well. UO marginal (fluids administered) CVP wnl. ScvO2 71 LA wnl Postoperative hypotension 08/12/2018 Overview: A/P: MAP 74 mmHg with goal 65-75 mmHg. On levophed. Wean able Stress hyperglycemia 08/12/2018 018 Overview: SSI On mechanically assisted ventilation 08/12/2018 08/13/2018 Overview: A/P Intubated and sedate from OR. WTE. 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 Plt count trended as low as 68k 08/14. Assessment: Improving to 77k. Plan: Continue ASA, SQ Heparin as tolerating with no further decline in plt count. Preop testing 08/11/2018 08/15/2018 Overview[facility] Surgeon: Onel Briggs M.D. Informed Consent Completed: Yes STS Score: N/A CAD: No Is intended procedure a CABG: No - is a beta xiao ordered? N/A H & P completed: Yes PA/LAT: N/A CTA: Completed MRI: N/A LE US: N/A Cath: Yes - reviewed: Yes Echo:Completed EKG: Completed EF %: 55 PI's: N/A Carotid: N/A Mapping: N/A Dental: Completed- document to be scanned PFT's: N/A 06/26/18 WBC 4.57 HB 13.3 HCT 41.9 PLT 143 PTT 30.5 PT 11.1 INR 1.1 NA 142 K 4.6 BUN 17 CREAT 1.06 UA: Normal HCG:N/A ABO/ABO Confirmed: Yes Blood ordered: No SA Swab: Yes - results: Pending Last Dose of Anticoagulation: not on A/C d/t GIB history. Last dose of OTC/Vit on 08/07/18 Op Note: No Pacemaker Check: N/A Implants: no Consults: None DM: No Cardiac Surgical prep: N/A SIGNATURE: Belia Gardner APRN.CNP CHECKED BY: DATE of SERVICE: 08/11/2018 TIME of SERVICE: 5:09 PM Ascending aortic aneurysm Dilated aortic root 08/15/20 18 documented as of this encounter (statuses as of 07/15/2023) [facility] History of Past illness Narrative* Problem Noted Date Diagnosed Date Resolved Date Volume overload 08/15/2018 08/20/2018 Overview: History: Post-op problem. Weight up as much as 7.2 kg Assessment: (+) 3.2 kg. On IV lasix. Plan: Replace electrolytes prn. Montior labs, I/O. Monitor daily weight. Continue fluid restriction. Mobilize. Atelectasis 08/15/2018 08/19/2018 Overview: History: Post-op problem. Assessment: CXR 08/15 with sm effusions/bibasilar atelectasis. Plan: Mobilize now that on tele. Encourage PEP, cough and deep breathing. Pain control. Large RT penumothorax. 08/13/201808/20 Overview: History: Post-op problem. Developed near complete right pneumothorax 08/13 Assessment: CXR with resolved pneumo. On RA. Right pigtail removed 08.18.2018 without incident. Plan: Post-pull repeat CXR ipending. Continue COOK CHEF for pain related to catheter. Acute post-operative pain 08/12/2018 Overview: History: post OHS Assessment: pain is well controlled with current regimen. Pt. requests COOK CHEF continue. Does have itching when takes Oxycodone, but states all pain meds causes this for him (no rash noted) Plan: Continue current regimen with lidoderm patches, Tylenol, Oxycodone/Tramadol, and COOK CHEF. Add Benadryl. Bowel regimen in place. Cardiac insufficiency 08/12/20182017 Overview: Normal biventricular function pre/post. On epinephrine from OR. Weaned to off. Mentating well. UO marginal (fluids administered) CVP wnl. ScvO2 71 LA wnl Postoperative hypotension 08/12/2018 Overview: A/P: MAP 74 mmHg with goal 65-75 mmHg. On levophed. Wean able Stress hyperglycemia 08/12/2018 018 Overview: SSI On mechanically assisted ventilation 08/12/2018 08/13/2018 Overview: A/P Intubated and sedate from OR. WTE. 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 Plt count trended as low as 68k 08/14. Assessment: Improving to 77k. Plan: Continue ASA, SQ Heparin as tolerating with no further decline in plt count. Preop testing 08/11/2018 08/15/2018 Overview: [facility] Surgeon: Onel Briggs M.D. Informed Consent Completed: Yes STS Score: N/A CAD: No Is intended procedure a CABG: No - is a beta xiao ordered? N/A H & P completed: Yes PA/LAT: N/A CTA: Completed MRI: N/A LE US: N/A Cath: Yes - reviewed: Yes Echo:Completed EKG: Completed EF %: 55 PI's: N/A Carotid: N/A Mapping: N/A Dental: Completed- document to be scanned PFT's: N/A 06/26/18 WBC 4.57 HB 13.3 HCT 41.9 PLT 143 PTT 30.5 PT 11.1 INR 1.1 NA 142 K 4.6 BUN 17 CREAT 1.06 UA: Normal HCG:N/A ABO/ABO Confirmed: Yes Blood ordered: No SA Swab: Yes - results: Pending Last Dose of Anticoagulation: not on A/C d/t GIB history. Last dose of OTC/Vit on 08/07/18 Op Note: No Pacemaker Check: N/A Implants: no Consults: None DM: No Cardiac Surgical prep: N/A SIGNATURE: Belia Gardner APRN.INSTRUMENT TECHNICIAN HELPER CHECKED BY: DATE of SERVICE: 08/11/2018 TIME of SERVICE: 5:09 PM Ascending aortic aneurysm Dilated aortic root 08/15/20 18 documented as of this encounter (statuses as of 08/13/2023) [facility] History of Past illness Narrative* Problem Noted Date Diagnosed Date Resolved Date Volume overload 08/15/2018 08/20/2018 Overview: History: Post-op problem. Weight up as much as 7.2 kg Assessment: (+) 3.2 kg. On IV lasix. Plan: Replace electrolytes prn. Montior labs, I/O. Monitor daily weight. Continue fluid restriction. Mobilize. Atelectasis 08/15/2018 08/19/2018 Overview: History: Post-op problem. Assessment: CXR 08/15 with sm effusions/bibasilar atelectasis. Plan: Mobilize now that on tele. Encourage PEP, cough and deep breathing. Pain control. Large RT penumothorax. 08/13/201808/20 Overview: History: Post-op problem. Developed near complete right pneumothorax 08/13 Assessment: CXR with resolved pneumo. On RA. Right pigtail removed 08.18.2018 without incident. Plan: Post-pull repeat CXR ipending. Continue COOK CHEF for pain related to catheter. Acute post-operative pain 08/12/2018 Overview: History: post OHS Assessment: pain is well controlled with current regimen. Pt. requests COOK CHEF continue. Does have itching when takes Oxycodone, but states all pain meds causes this for him (no rash noted) Plan: Continue current regimen with lidoderm patches, Tylenol, Oxycodone/Tramadol, and COOK CHEF. Add Benadryl. Bowel regimen in place. Cardiac insufficiency 08/12/20182017 Overview: Normal biventricular function pre/post. On epinephrine from OR. Weaned to off. Mentating well. UO marginal (fluids administered) CVP wnl. ScvO2 71 LA wnl Postoperative hypotension 08/12/2018 Overview: A/P: MAP 74 mmHg with goal 65-75 mmHg. On levophed. Wean able Stress hyperglycemia 08/12/2018 018 Overview: SSI On mechanically assisted ventilation 08/12/2018 08/13/2018 Overview: A/P Intubated and sedate from OR. WTE. 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 Plt count trended as low as 68k 08/14. Assessment: Improving to 77k. Plan: Continue ASA, SQ Heparin as tolerating with no further decline in plt count. Preop testing 08/11/2018 08/15/2018 Overview: [facility] Surgeon: Onel Briggs M.D. Informed Consent Completed: Yes STS Score: N/A CAD: No Is intended procedure a CABG: No - is a beta xiao ordered? N/A H & P completed: Yes PA/LAT: N/A CTA: Completed MRI: N/A LE US: N/A Cath: Yes - reviewed: Yes Echo:Completed EKG: Completed EF %: 55 PI's: N/A Carotid: N/A Mapping: N/A Dental: Completed- document to be scanned PFT's: N/A 06/26/18 WBC 4.57 HB 13.3 HCT 41.9 PLT 143 PTT 30.5 PT 11.1 INR 1.1 NA 142 K 4.6 BUN 17 CREAT 1.06 UA: Normal HCG:N/A ABO/ABO Confirmed: Yes Blood ordered: No SA Swab: Yes - results: Pending Last Dose of Anticoagulation: not on A/C d/t GIB history. Last dose of OTC/Vit on 08/07/18 Op Note: No Pacemaker Check: N/A Implants: no Consults: None DM: No Cardiac Surgical prep: N/A SIGNATURE: Belia Gardner APRN.CNP CHECKED BY: DATE of SERVICE: 08/11/2018 TIME of SERVICE: 5:09 PM Ascending aortic aneurysm Dilated aortic root 08/15/20 18 documented as of this encounter (statuses as of 08/19/2023) [facility] History of Past illness Narrative* Problem Noted Date Diagnosed Date Resolved Date Volume overload 08/15/2018 08/20/2018 Overview: History: Post-op problem. Weight up as much as 7.2 kg Assessment: (+) 3.2 kg. On IV lasix. Plan: Replace electrolytes prn. Montior labs, I/O. Monitor daily weight. Continue fluid restriction. Mobilize. Atelectasis 08/15/2018 08/19/2018 Overview: History: Post-op problem. Assessment: CXR 08/15 with sm effusions/bibasilar atelectasis. Plan: Mobilize now that on tele. Encourage PEP, cough and deep breathing. Pain control. Large RT penumothorax. 08/13/201808/20 Overview: History: Post-op problem. Developed near complete right pneumothorax 08/13 Assessment: CXR with resolved pneumo. On RA. Right pigtail removed 08.18.2018 without incident. Plan: Post-pull repeat CXR ipending. Continue COOK CHEF for pain related to catheter. Acute post-operative pain 08/12/2018 Overview: History: post OHS Assessment: pain is well controlled with current regimen. Pt. requests COOK CHEF continue. Does have itching when takes Oxycodone, but states all pain meds causes this for him (no rash noted) Plan: Continue current regimen with lidoderm patches, Tylenol, Oxycodone/Tramadol, and COOK CHEF. Add Benadryl. Bowel regimen in place. Cardiac insufficiency 08/12/20182017 Overview: Normal biventricular function pre/post. On epinephrine from OR. Weaned to off. Mentating well. UO marginal (fluids administered) CVP wnl. ScvO2 71 LA wnl Postoperative hypotension 08/12/2018 Overview: A/P: MAP 74 mmHg with goal 65-75 mmHg. On levophed. Wean able Stress hyperglycemia 08/12/2018 018 Overview: SSI On mechanically assisted ventilation 08/12/2018 08/13/2018 Overview: A/P Intubated and sedate from OR. WTE. 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 Plt count trended as low as 68k 08/14. Assessment: Improving to 77k. Plan: Continue ASA, SQ Heparin as tolerating with no further decline in plt count. Preop testing 08/11/2018 08/15/2018 Overview: [facility] Surgeon: Onel Briggs M.D. Informed Consent Completed: Yes STS Score: N/A CAD: No Is intended procedure a CABG: No - is a beta xiao ordered? N/A H & P completed: Yes PA/LAT: N/A CTA: Completed MRI: N/A LE US: N/A Cath: Yes - reviewed: Yes Echo:Completed EKG: Completed EF %: 55 PI's: N/A Carotid: N/A Mapping: N/A Dental: Completed- document to be scanned PFT's: N/A 06/26/18 WBC 4.57 HB 13.3 HCT 41.9 PLT 143 PTT 30.5 PT 11.1 INR 1.1 NA 142 K 4.6 BUN 17 CREAT 1.06 UA: Normal HCG:N/A ABO/ABO Confirmed: Yes Blood ordered: No SA Swab: Yes - results: Pending Last Dose of Anticoagulation: not on A/C d/t GIB history. Last dose of OTC/Vit on 08/07/18 Op Note: No Pacemaker Check: N/A Implants: no Consults: None DM: No Cardiac Surgical prep: N/A SIGNATURE: Belia Gardner APRN.CNP CHECKED BY: DATE of SERVICE: 08/11/2018 TIME of SERVICE: 5:09 PM Ascending aortic aneurysm Dilated aortic root 08/15/20 18 documented as of this encounter (statuses as of 11/13/2023) [facility] History of Past illness Narrative* Problem Noted Date Diagnosed Date Resolved Date Volume overload 08/15/2018 08/20/2018 Overview: History: Post-op problem. Weight up as much as 7.2 kg Assessment: (+) 3.2 kg. On IV lasix. Plan: Replace electrolytes prn. Montior labs, I/O. Monitor daily weight. Continue fluid restriction. Mobilize. Atelectasis 08/15/2018 08/19/2018 Overview: History: Post-op problem. Assessment: CXR 08/15 with sm effusions/bibasilar atelectasis. Plan: Mobilize now that on tele. Encourage PEP, cough and deep breathing. Pain control. Large RT penumothorax. 08/13/201808/20 Overview: History: Post-op problem. Developed near complete right pneumothorax 08/13 Assessment: CXR with resolved pneumo. On RA. Right pigtail removed 08.18.2018 without incident. Plan: Post-pull repeat CXR ipending. Continue COOK CHEF for pain related to catheter. Acute post-operative pain 08/12/2018 Overview: History: post OHS Assessment: pain is well controlled with current regimen. Pt. requests COOK CHEF continue. Does have itching when takes Oxycodone, but states all pain meds causes this for him (no rash noted) Plan: Continue current regimen with lidoderm patches, Tylenol, Oxycodone/Tramadol, and COOK CHEF. Add Benadryl. Bowel regimen in place. Cardiac insufficiency 08/12/20182017 Overview: Normal biventricular function pre/post. On epinephrine from OR. Weaned to off. Mentating well. UO marginal (fluids administered) CVP wnl. ScvO2 71 LA wnl Postoperative hypotension 08/12/2018 Overview: A/P: MAP 74 mmHg with goal 65-75 mmHg. On levophed. Wean able Stress hyperglycemia 08/12/2018 018 Overview: SSI On mechanically assisted ventilation 08/12/2018 08/13/2018 Overview: A/P Intubated and sedate from OR. WTE. 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 Plt count trended as low as 68k 08/14. Assessment: Improving to 77k. Plan: Continue ASA, SQ Heparin as tolerating with no further decline in plt count. Preop testing 08/11/2018 08/15/2018 Overview: [facility] Surgeon: Onel Briggs M.D. Informed Consent Completed: Yes STS Score: N/A CAD: No Is intended procedure a CABG: No - is a beta xiao ordered? N/A H & P completed: Yes PA/LAT: N/A CTA: Completed MRI: N/A LE US: N/A Cath: Yes - reviewed: Yes Echo:Completed EKG: Completed EF %: 55 PI's: N/A Carotid: N/A Mapping: N/A Dental: Completed- document to be scanned PFT's: N/A 06/26/18 WBC 4.57 HB 13.3 HCT 41.9 PLT 143 PTT 30.5 PT 11.1 INR 1.1 NA 142 K 4.6 BUN 17 CREAT 1.06 UA: Normal HCG:N/A ABO/ABO Confirmed: Yes Blood ordered: No SA Swab: Yes - results: Pending Last Dose of Anticoagulation: not on A/C d/t GIB history. Last dose of OTC/Vit on 08/07/18 Op Note: No Pacemaker Check: N/A Implants: no Consults: None DM: No Cardiac Surgical prep: N/A SIGNATURE: Belia Gardner APRN.CNP CHECKED BY: DATE of SERVICE: 08/11/2018 TIME of SERVICE: 5:09 PM Ascending aortic aneurysm Dilated aortic root 08/15/20 18 documented as of this encounter (statuses as of 02/11/2024) [facility] No data available for this section [facility] + Plan note Future Appointments Appointment Date:03/29/2023 08:30:00 AM Scheduled Provider: Location:[place]ICAL [place] Appointment Type:PT [place] [facility] (FT) Appointment Date:04/02/2023 02:15:00 PM Scheduled Provider: Location:[facility] Appointment Type:PT [place] [facility] (FT) Appointment Date:04/05/2023 11:30:00 AM Scheduled Provider: Location:[place] Appointment Type:PT [place] [facility] (FT) Appointment Date:04/09/2023 11:30:00 AM Scheduled Provider: Location:[facility] Appointment Type:PT [place] [facility] (FT) Appointment Date:04/12/2023 08:30:00 AM Scheduled Provider: Location:[facility] Appointment Type:PT Re-[facility] 30 (FT) [facility] note* Diagnosis Precordial pain- Primary [facility]* Diagnosis Precordial pain documented [facility]* Diagnosis S/P AVR- Primary Heart valve replaced by other means Essential (primary) hypertension Unspecified essential hypertension documented in [facility]* Diagnosis Essential hypertension Unspecified essential hypertension documented in [facility]* Diagnosis Essential hypertension Unspecified essential hypertension [facility] this encounter [facility]* Diagnosis Chest pain, unspecified type- Primary documented in this [facility]* Diagnosis S/P AVR- Primary Heart valve replaced by other means Essential hypertension Unspecified essential hypertension Chest discomfort Other chest pain documented in this [facility]* Diagnosis Physical deconditioning- Primary Debility, unspecified Elevated serum creatinine Other nonspecific findings on examination of blood S/P AVR Heart valve replaced by other means [facility] Diagnosis Elevated serum creatinine- Primary Other nonspecific findings on examination of blood S/P AVR- Primary Heart valve replaced by other means Exercise counseling Chest discomfort Other chest pain ELLIS (dyspnea on exertion) Other dyspnea and respiratory abnormality Essential (primary) hypertension Unspecified essential hypertension Hyperlipidemia, unspecified hyperlipidemia type Paroxysmal atrial fibrillation (HCC) Atrial fibrillation S/P ascending aortic replacement Blood vessel replaced by other means Lightheadedness Dizziness and giddiness documented in this encounter [facility]* Diagnosis S/P AVR- Primary Heart valve replaced by other means Exercise counseling Chest discomfort Other chest pain ELLIS (dyspnea on exertion) Other dyspnea and respiratory abnormality Essential (primary) hypertension Unspecified essential hypertension Hyperlipidemia, unspecified hyperlipidemia type Paroxysmal atrial fibrillation (HCC) Atrial fibrillation S/P ascending aortic replacement Blood vessel replaced by other means Lightheadedness Dizziness and giddiness Physical deconditioning Debility, unspecified Need for home exercise program Difficulty managing exercise regime Cardiac risk counseling Other specified counseling [facility] this encounter [facility]* Diagnosis Hyperlipidemia, unspecified hyperlipidemia type- Primary S/P ascending aortic replacement Blood vessel replaced by other means Nonrheumatic aortic valve insufficiency Aortic valve disorders [facility] Diagnosis S/P right rotator cuff repair- Primary Traumatic complete tear of right rotator cuff, initial encounter [facility]* Diagnosis Essential hypertension Unspecified essential hypertension [facility] Diagnosis Hyperlipidemia, unspecified hyperlipidemia type- Primary Essential hypertension Unspecified essential hypertension S/P AVR Heart valve replaced by other means documented in this encounter [facility]* Diagnosis Essential hypertension Unspecified essential hypertension [facility] Diagnosis Hyperlipidemia, unspecified hyperlipidemia type- Primary Essential hypertension Unspecified essential hypertension S/P AVR Heart valve replaced by other means documented in this encounter [facility] Discharge instructions No data available for this section [facility] available for this [facility] Diagnostic Procedure Only (Routine) - Pending Review Specialty Diagnoses / Procedures Referred By Contac t Referred To Contact [facility] Diagnoses Precordial pain Procedures NM CARDIAC PERF STRESS/EXERCISE MYOCARDIAL SPECT MULTIPLE STUDIES Todd Nunn MD [address] [id number] [facility] [address] [place] [address] Referral ID Status Reason Start Date Expiration Date Visits Requested Visits Authorized [id number] Pending Review Auto-Generat ed Referral 04/11/2022 04/26/2023 1 1 [facility] for referral (narrative)* Diagnostic Procedure Only (Routine) - Closed Specialty Diagnoses / Procedures Referred By Darnell t Referred To Contact [facility] Diagnoses Precordial pain Procedures NM CARDIAC PERF STRESS/EXERCISE MYOCARDIAL SPECT MULTIPLE STUDIES Todd Nunn MD [address] [place] [address] Molecular [facility] Functional Imaging [address] [place] [address] Referral ID Status Reason Start Date Expiration Date V isits Requested Visits Authorized [id number] Closed Auto-Generate d Referral 04/11/2022 04/26/2023 1 1 T [facility] for referral (narrative)* Outpatient Procedure (Routine) - Authorized Specialty Diagnoses / Procedures Referred By Sashaac t Referred To Contact [facility] Diagnoses S/P AVR Procedures ECHO ECHO TTHRC R-T 2D W/WOM-MODE COMPL SPEC&COLR D Juan F Portillo MD [address] [id number] [facility] [place] [address] [place] [id number] Referral ID Status Reason Start Date Expiration Date Visits Requested Visits Authorized [id number] Authorized Auto-Generat ed Referral 08/15/2022 08/15/2023 1 1 T [facility] for referral (narrative)* Diagnostic Procedure Only (Routine) - Authorized Specialty Diagnoses / Procedures Referred By Contac t Referred To Contact [facility] Diagnoses Chest pain, unspecified type Procedures NM CARDIAC PERF STRESS/PHARM MYOCARDIAL SPECT MULTIPLE STUDIES Todd Nunn MD [address] [place] [address] Molecular [facility] [address] [id number] Referral ID Status Reason Start Date Expiration Date Visits Requested Visits Authorized [id number] Authorized Auto-Generat ed Referral 01/08/2023 02/06/[address] [facility] for referral (narrative)* Outpatient Procedure (Routine) - Authorized Specialty Diagnoses / Procedures [facility] To Contact [facility] Diagnoses Chest pain, unspecified type Procedures ECG COMPLETE ECG ROUTINE ECG W/LEAST 12 LDS W/I&R Juan F Portillo MD [address] [place] [address] [address] Referral ID Status Reason Start Date Expiration Date Visits Requested Visits Authorized [id number] Authorized Auto-Generat ed Referral 01/08/2023 01/08/[address] [facility] for referral (narrative)* Outpatient Procedure (Routine) - Pending Review Specialty Diagnoses / Procedures [facility] Referred To Contact [facility] Diagnoses S/P ascending aortic replacement Nonrheumatic aortic valve insufficiency Procedures ECHO ECHO [facility] R-T 2D W/WOM-MODE COMPL SPEC&COLR D Clarisse Gee, ISIDRO.INSTRUMENT TECHNICIAN HELPER [address] [place] [address] [address] Referral ID Status Reason Start Date Expiration Date Visits Requested Visits Authorized [id number] Pending Review Auto-Generat ed Referral 03/13/2023 03/12/2024 1 1 [facility] Advance Directives No Advanced Directives Records FoundDocuments on File Type Date Recorded 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 Print Press 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 Expl 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 Advance Directive(s) 08/11/2018 5:53 PM Advance Directive(s) 08/11/2018 5:51 PM Advance Directive(s) 06/02/2018 6:58 AM Documents on File Type Date Recorded Patient Print Press Operator Expl anation Advance Directive(s) 08/11/2018 5:53 PM Advance Directive(s) 08/11/2018 5:51 PM Advance Directive(s) 06/02/2018 6:58 AM Documents on File Type Date Recorded Patient Print Press Operator Expl anation Advance Directive(s) 08/11/2018 5:51 PM Documents on File Type Date Recorded Patient Print Press Operator Expl anation Advance Directive(s) 08/11/2018 5:51 PM Reason for Referral Specialty Diagnoses / Procedures Referred By Contac t Referred To Contact [facility] Procedures CARDIOVASCULAR MEDICINE OP FOLLOW UP APPT ORDER Abeba Keen APRN.CNP [address] [place] [address] [address] Referral ID Status Reason Start Date Expiration Date Visits Requested Visits Authorized [id number] Ref Not Required PCP Requested Referral 08/13/2024 02/10/2025 1 1 Specialty Diagnoses / Procedures Referred By Contac t Referred To Contact [facility] Diagnoses S/P right rotator cuff repair Traumatic complete tear of right rotator cuff, initial encounter Procedures CONSULT TO PHYSICAL THERAPY PHYSICAL THERAPY EVALUATION HIGH COMPLEX 45 MINS Reji Weems MD [address] [place] [address] [facility] [address] [address] Referral ID Status Reason Start Date Expiration Date Visits Requested Visits Authorized [id number] Authorized PCP Requested Referral Auto-Generate d Referral 07/08/2023 07/07/2024 99 99 Specialty Diagnoses / Procedures Referred By Contac t Referred To Contact Diagnoses Physical deconditioning Procedures CARD PREV EXERCISE PRESCRIPTION OFFICE/OUTPATIENT NEW HIGH MDM 60-74 MINUTES Juan F Portillo MD [address] [place] [address] Referral ID Status Reason Start Date Expiration Date Visits Requested Visits Authorized [id number] Authorized PCP Requested Referral 02/06/2023 02/06/2024 1 1 Summary Purpose Family History No Family History Records FoundNo Family History Records Found Medications Administered Section Inactive Administered Medications - up to 3 most recent administrations Medication Order MAR Action Action Date Dose Rate Site lidocaine (PF) 10 mg/mL (1 %) 8 mL injection (XYLOCAINE) 8 mL, Injection - FOR ORTHO USE ONLY, ONE TIME INJECTION, 1 dose, Starting on Sat07/08/23 at 1102, Until Sat07/08/23 at 1102 Given 07/08/2023 11:02 AM EDT 8 mL Shoulder, Right triamcinolone acetonide 80 mg injection (KeNALog 40) 80 mg, Injection - FOR ORTHO USE ONLY, ONE TIME INJECTION, 1 dose, Starting on Sat07/08/23 at 1102, Until Sat07/08/23 at 1102 Given 07/08/2023 11:02 AM EDT 80 mg Shoulder, Right Additional Source Comments Source Comments (unrecognize d section and content) In the event this informatio n is protected by the Federal Confidentiality of Alcohol and Drug Abuse Patient Records regulations: The Federal rules restrict any use of the information to criminally investigate or prosecute any alcohol or drug abuse patient.[facility] the event this information is protected by the Federal Confidentiality of Alcohol and Drug Abuse Patient Records regulations: The Federal rules restrict any use of the information to criminally investigate or prosecute any alcohol or drug abuse patient.[facility] the event this information is protected by the Federal Confidentiality of Alcohol and Drug Abuse Patient Records regulations: The Federal rules restrict any use of the information to criminally investigate or prosecute any alcohol or drug abuse patient.[facility] the event this information is protected by the Federal Confidentiality of Alcohol and Drug Abuse Patient Records regulations: The Federal rules restrict any use of the information to criminally investigate or prosecute any alcohol or drug abuse patient.[facility] the event this information is protected by the Federal Confidentiality of Alcohol and Drug Abuse Patient Records regulations: The Federal rules restrict any use of the information to criminally investigate or prosecute any alcohol or drug abuse patient.[facility] the event this information is protected by the Federal Confidentiality of Alcohol and Drug Abuse Patient Records regulations: The Federal rules restrict any use of the information to criminally investigate or prosecute any alcohol or drug abuse patient.[facility] the event this information is protected by the Federal Confidentiality of Alcohol and Drug Abuse Patient Records regulations: The Federal rules restrict any use of the information to criminally investigate or prosecute any alcohol or drug abuse patient.[facility] the event this information is protected by the Federal Confidentiality of Alcohol and Drug Abuse Patient Records regulations: The Federal rules restrict any use of the information to criminally investigate or prosecute any alcohol or drug abuse patient.[facility] the event this information is protected by the Federal Confidentiality of Alcohol and Drug Abuse Patient Records regulations: The Federal rules restrict any use of the information to criminally investigate or prosecute any alcohol or drug abuse patient.[facility] the event this information is protected by the Federal Confidentiality of Alcohol and Drug Abuse Patient Records regulations: The Federal rules restrict any use of the information to criminally investigate or prosecute any alcohol or drug abuse patient.[facility] the event this information is protected by the Federal Confidentiality of Alcohol and Drug Abuse Patient Records regulations: The Federal rules restrict any use of the information to criminally investigate or prosecute any alcohol or drug abuse patient.[facility] the event this information is protected by the Federal Confidentiality of Alcohol and Drug Abuse Patient Records regulations: The Federal rules restrict any use of the information to criminally investigate or prosecute any alcohol or drug abuse patient.[facility] the event this information is protected by the Federal Confidentiality of Alcohol and Drug Abuse Patient Records regulations: The Federal rules restrict any use of the information to criminally investigate or prosecute any alcohol or drug abuse patient.[facility] the event this information is protected by the Federal Confidentiality of Alcohol and Drug Abuse Patient Records regulations: The Federal rules restrict any use of the information to criminally investigate or prosecute any alcohol or drug abuse patient.[facility] the event this information is protected by the Federal Confidentiality of Alcohol and Drug Abuse Patient Records regulations: The Federal rules restrict any use of the information to criminally investigate or prosecute any alcohol or drug abuse patient.[facility] the event this information is protected by the Federal Confidentiality of Alcohol and Drug Abuse Patient Records regulations: The Federal rules restrict any use of the information to criminally investigate or prosecute any alcohol or drug abuse patient.[facility] the event this information is protected by the Federal Confidentiality of Alcohol and Drug Abuse Patient Records regulations: The Federal rules restrict any use of the information to criminally investigate or prosecute any alcohol or drug abuse patient.[facility] the event this information is protected by the Federal Confidentiality of Alcohol and Drug Abuse Patient Records regulations: The Federal rules restrict any use of the information to criminally investigate or prosecute any alcohol or drug abuse patient.[facility] Hospital[facility] the event this information is protected by the Federal Confidentiality of Alcohol and Drug Abuse Patient Records regulations: The Federal rules restrict any use of the information to criminally investigate or prosecute any alcohol or drug abuse patient.[facility] the event this information is protected by the Federal Confidentiality of Alcohol and Drug Abuse Patient Records regulations: The Federal rules restrict any use of the information to criminally investigate or prosecute any alcohol or drug abuse patient.[facility] the event this information is protected by the Federal Confidentiality of Alcohol and Drug Abuse Patient Records regulations: The Federal rules restrict any use of the information to criminally investigate or prosecute any alcohol or drug abuse patient.[facility] Hospital[facility] the event this information is protected by the Federal Confidentiality of Alcohol and Drug Abuse Patient Records regulations: The Federal rules restrict any use of the information to criminally investigate or prosecute any alcohol or drug abuse patient.[facility] Hospital[facility] the event this information is protected by the Federal Confidentiality of Alcohol and Drug Abuse Patient Records regulations: The Federal rules restrict any use of the information to criminally investigate or prosecute any alcohol or drug abuse patient.[facility] Hospital[facility] the event this information is protected by the Federal Confidentiality of Alcohol and Drug Abuse Patient Records regulations: The Federal rules restrict any use of the information to criminally investigate or prosecute any alcohol or drug abuse patient.[facility] Hospital[facility] the event this information is protected by the Federal Confidentiality of Alcohol and Drug Abuse Patient Records regulations: The Federal rules restrict any use of the information to criminally investigate or prosecute any alcohol or drug abuse patient.[facility] Reason for Visit (unrecogniz ed section and content) Reason Onset Date Comments Refill Request 03/20/2022 Reason Comments Radiology NM Specialty Diagnoses / Procedures Referred By Contac t Referred To Contact [facility] Diagnoses Precordial pain Procedures NM CARDIAC PERF STRESS/EXERCISE MYOCARDIAL SPECT MULTIPLE STUDIES Todd Nunn MD [address] [place] [id number] [facility] [address] [place] [address] Referral ID Status Reason Start Date Expiration Date V isits Requested Visits Authorized [id number] Closed Auto-Generate d Referral 04/11/2022 04/26/2023 1 1 Reason Comments Lab Orders Get labs done? Reason Comments Follow Up 6 mths f/u Reason Comments Refill Request Reason Onset Date Comments Refill Request 11/12/2022 Reason Comments Appointment Reason Comments Consult Self referring Received Outside Medical Records Reason Comments Chest Pain Reason Comments Radiology NM Specialty Diagnoses / Procedures Referred By Contac t Referred To Contact [facility] Diagnoses Chest pain, unspecified type Procedures NM CARDIAC PERF STRESS/PHARM MYOCARDIAL SPECT MULTIPLE STUDIES Todd Nunn MD [address] [place] [address] [facility] [address] [place] [address] Referral ID Status Reason Start Date Expiration Date V isits Requested Visits Authorized [id number] Closed Auto-Generate d Referral 01/08/2023 02/06/2024 1 1 Reason Comments Follow Up Reason Comments Exercise Prescription Specialty Diagnoses / Procedures Referred By Contac t Referred To Contact Diagnoses Physical deconditioning Procedures CARD PREV EXERCISE PRESCRIPTION OFFICE/OUTPATIENT [facility] MDM 60-74 MINUTES Juan F Portillo MD [address] [place] [address] Referral ID Status Reason Start Date Expiration Date V isits Requested Visits Authorized [id number] Closed PCP Requested Referral 02/06/2023 02/06/2024 1 1 Reason Comments Patient Question Any additional testi ng? Reason Comments Medication Question Reason Comments New Pain Numbness Reason Onset Date Comments Refill Request 07/15/2023 Reason Comments Hyperlipidemia Reason Onset Date Comments Refill Request 11/11/2023 Reason Comments Hyperlipidemia Reason Comments Patient Question Care Teams (unrecognized sec tion and content) Trailer Rental Clerk Relationship Specialty Start Date End Date Onel Isaacs MD [address] [place] [address] PCP - General 03/07/01 Kenyatta Dumont Referring Cardiology 05/29/18 Juan F Portillo MD Primary Staff Physician Cardiology 05/10/20 Trailer Rental Clerk Relationship Specialty Start Date End Date Onel Isaacs MD [address] [place] [address] PCP - General 03/07/01 Kenyatta Dumont Referring Cardiology 05/29/18 Juan F Portillo MD Primary Staff Physician Cardiology 05/10/20 Trailer Rental Clerk Relationship Specialty Start Date End Date Onel Isaacs MD [address] [place] [address] PCP - General 03/07/01 Kenyatta Dumont Referring Cardiology 05/29/18 Juan F Portillo MD Primary Staff Physician Cardiology 05/10/20 Trailer Rental Clerk Relationship Specialty Start Date End Date Onel Isaacs MD [address] [place] [address] PCP - General 03/07/01 Kenyatta Dumont Referring Cardiology 05/29/18 Juan F Portillo MD Primary Staff Physician Cardiology 05/10/20 Trailer Rental Clerk Relationship Specialty Start Date End Date Onel Isaacs MD [address] [place] [address] PCP - General 03/07/[address] [facility] Referring Cardiology 05/29/18 Juan F Portillo MD Primary Staff Physician Cardiology 05/10/20 Trailer Rental Clerk Relationship Specialty Start Date End Date Onel Isaacs MD [address] [facility] [place] [address] PCP - General 03/07/01 Rayray Dumontam [address] [place] [address] Referring Cardiology 05/29/18 Juan F Portillo MD [address] [place] [address] Primary Staff Physician Cardiology 05/10/20 Trailer Rental Clerk Relationship Specialty Start Date End Date Onel Isaacs MD [address] [place] [address] PCP - General 03/07/01 [facility] [address] [place] [address] Referring Cardiology 05/29/18 Juan F Portillo MD [address] [place] [address] Primary Staff Physician Cardiology 05/10/20 Trailer Rental Clerk Relationship Specialty Start Date End Date Onel Isaacs MD [address] [facility] [place] [address] PCP - General 03/07/01 Rayray Dumontam [address] [facility] [address] Referring Cardiology 05/29/18 Juan F Portillo MD [address] [facility] [address] Primary Staff Physician Cardiology 05/10/20 Trailer Rental Clerk Relationship Specialty Start Date End Date Onel Isaacs MD [address] [facility] [address] PCP - General 03/07/01 Tim Rayrayyaniam [address] [facility] [address] Referring Cardiology 05/29/18 Juan F Portillo MD [address] [facility] [place] [address] Primary Staff Physician Cardiology 05/10/20 Trailer Rental Clerk Relationship Specialty Start Date End Date Onel Isaacs MD [address] [facility] [place] [address] PCP - General 03/07/01 Tim Rayrayam [address] [facility] [address] Referring Cardiology 05/29/18 Juan F Portillo MD [address] [facility] [place] [address] Primary Staff Physician Cardiology 05/10/20 Onel Isaacs MD [address] [facility] [address] Referring Family Medicine 01/08/23 Trailer Rental Clerk Relationship Specialty Start Date End Date Onel Isaacs MD [address] [facility] [address] PCP - General 03/07/01 [facility] [address] [place] [address] Referring Cardiology 05/29/18 Juan F Portillo MD [address] [facility] [place] [address] Primary Staff Physician Cardiology 05/10/20 Onel Isaacs MD [address] [facility] [address] Referring Family Medicine 01/08/23 Trailer Rental Clerk Relationship Specialty Start Date End Date Onel Isaacs MD [address] [facility] [address] PCP - General 03/07/[address] [facility] [address] [facility] [place] [address] Referring Cardiology 05/29/18 Juan F Portillo MD [address] [facility] [address] Primary Staff Physician Cardiology 05/10/20 Onel Isaacs MD [address] [facility] [address] Referring Family Medicine 01/08/23 Trailer Rental Clerk Relationship Specialty Start Date End Date Onel Isaacs MD [address] [facility] [place] [address] PCP - General 03/07/01 [facility] [address] [facility] [place] [address] Referring Cardiology 05/29/18 Juan F Portillo MD [address] [facility] [place] [address] Primary Staff Physician Cardiology 05/10/20 Onel Isaacs MD [address] [facility] [place] [address] Referring Family Medicine 01/08/23 Trailer Rental Clerk Relationship Specialty Start Date End Date Onel Isaacs MD [address] [facility] [place] [address] PCP - General 03/07/01 Kenyatta Dumont [address] [facility] [place] [address] Referring Cardiology 05/29/18 Juan F Portillo MD [address] [facility] [place] [place] [address] Primary Staff Physician Cardiology 05/10/20 Onel Isaacs MD [address] [facility] [place] [address] Referring Family Medicine 01/08/23 Trailer Rental Clerk Relationship Specialty Start Date End Date Onel Isaacs MD [address] [facility] [place] [place] [address] PCP - General 03/07/01 Kenyatta Dumont [address] [facility] [place] [address] Referring Cardiology 05/29/18 Juan F Portillo MD [address] [facility] [place] [address] Primary Staff Physician Cardiology 05/10/20 Onel Isaacs MD [address] [facility] [place] [address] Referring Family Medicine 01/08/23 Trailer Rental Clerk Relationship Specialty Start Date End Date Onel Isaacs MD [address] [facility] [place] [address] PCP - General 03/07/01 Kenyatta Dumont [address] [facility] [place] [place] [address] Referring Cardiology 05/29/18 Juan F Portillo MD [address] [facility] [place] [place] [address] Primary Staff Physician Cardiology 05/10/20 Onel Isaacs MD [address] [facility] [place] [address] Referring Family Medicine 01/08/23 Trailer Rental Clerk Relationship Specialty Start Date End Date Onel Isaacs MD [address] [facility] [place] [place] [address] PCP - General 03/07/01 Kenyatta Dumont [address] [facility] [place] [address] Referring Cardiology 05/29/18 Juan F Portillo MD [address] [facility] [place] [address] Primary Staff Physician Cardiology 05/10/20 Onel Isaacs MD [address] [facility] [place] [address] Referring Family Medicine 01/08/23 Trailer Rental Clerk Relationship Specialty Start Date End Date Onel Isaacs MD [address] [facility] [place] [address] PCP - General 03/07/01 Kenyatta Dumont [address] [facility] [place] [address] Referring Cardiology 05/29/18 Juan F Portillo MD [address] [facility] [place] [address] Primary Staff Physician Cardiology 05/10/20 Onel Isaacs MD [address] [facility] [place] [address] Referring Family Medicine 01/08/23 Onel Isaacs MD [address] [facility] [place] [address] Referring Family Medicine 06/19/23 Trailer Rental Clerk Relationship Specialty Start Date End Date Onel Isaacs MD [address] [facility] [place] [address] PCP - General 03/07/01 Kenyatta Dumont [address] [facility] [place] [address] Referring Cardiology 05/29/18 Juan F Portillo MD [address] [facility] [place] [address] Primary Staff Physician Cardiology 05/10/20 Onel Isaacs MD [address] [facility] [place] [address] Referring Family Medicine 01/08/23 Onel Isaacs MD [address] [facility] [place] [address] Referring Family Medicine 06/19/23 Trailer Rental Clerk Relationship Specialty Start Date End Date Onel Isaacs MD [address] [facility] [place] [address] PCP - General 03/07/01 Kenyatta Dumont [address] [facility] [place] [address] Referring Cardiology 05/29/18 Juan F Portillo MD [address] [facility] [place] [address] Primary Staff Physician Cardiology 05/10/20 Onel Isaacs MD [address] [facility] [place] [address] Referring Family Medicine 01/08/23 Onel Isaacs MD [address] [facility] [place] [address] Referring Family Medicine 06/19/23 Trailer Rental Clerk Relationship Specialty Start Date End Date Onel Isaacs MD [address] [facility] [place] [address] PCP - General 03/07/01 Kenyatta Dumont [address] [facility] [place] [address] Referring Cardiology 05/29/18 Juan F Portillo MD [address] [facility] [place] [address] Primary Staff Physician Cardiology 05/10/20 Onel Isaacs MD [address] [facility] [place] [address] Referring Family Medicine 01/08/23 Onel Isaacs MD [address] [facility] [place] [address] Referring Family Medicine 06/19/23 Trailer Rental Clerk Relationship Specialty Start Date End Date Onel Isaacs MD [address] [facility] [place] [address] PCP - General 03/07/01 Kenyatta Dumont [address] [facility] [place] [address] Referring Cardiology 05/29/18 Juan F Portillo MD [address] [facility] [place] [address] Primary Staff Physician Cardiology 05/10/20 Onel Isaacs MD [address] [facility] [place] [address] Referring Family Medicine 01/08/23 Onel Isaacs MD [address] [facility] [place] [address] Referring Family Medicine 06/19/23 Trailer Rental Clerk Relationship Specialty Start Date End Date Onel Isaacs MD [address] [place] [address] PCP - General 03/07/01 Kenyatta Dumont [address] [place] [address] Referring Cardiology 05/29/18 Juan F Portillo MD [address] [place] [address] Primary Staff Physician Cardiology 05/10/20 Onel Isaacs MD [address] [place] [address] Referring Family Medicine 01/08/23 Onel Isaacs MD [address] [place] [address] Referring Family Medicine 06/19/23 Trailer Rental Clerk Relationship Specialty Start Date End Date Onel Isaacs MD [address] [place] [address] PCP - General 03/07/01 Kenyatta Dumont [address] [place] [address] Referring Cardiology 05/29/18 Juan F Portillo MD [address] [place] [address] Primary Staff Physician Cardiology 05/10/20 Onel Isaacs MD [address] [place] [address] Referring Family Medicine 01/08/23 Onel Isaacs MD [address] [facility] [address] Referring Family Medicine 06/19/23 (unrecognized sect ion and content) No Status Records FoundNo Status Records Found INFORMATION SOURCE (unrecogn ized section and content) DATE CREATED AUTHOR 06/01/2023 [facility] DATE CREATED AUTHOR AUTHOR'S ORGANIZ ATION 05/28/2024 [facility] FOR RECORDS PERTAINING TO PATIENTS WHO ARE OR HAVE BEEN ENROLLED IN A CHEMICAL DEPENDENCY/SUBSTANCEABUSE PROGRAM, SOME INFORMATION MAY BE OMITTED. This clinical summary was aggregated from multiple sources. Caution should be exercised in using it in the provision of clinical care. This summary normalizes information from multiple sources, and as a consequence, information in this document may materially change the coding, format and clinical context of patient data. In addition, data may be omitted in some cases. CLINICAL DECISIONS SHOULD BE BASED ON THE PRIMARY CLINICAL RECORDS. [facility] [employer] [facility]. provides no warranty or guarantee of the accuracy or completeness of information in this document.
== END 2024-08-04 08:57 | disposition home or self-care (01) ==
LOC: CT 08:56
PROVIDERS: PCP Family Medicine; Visit Provider Family Medicine
DX: Z01.818 Encounter for other preprocedural examination (principal); K43.9 Ventral hernia without obstruction or gangrene; K57.90 Diverticulosis of intestine, part unspecified, without perforation or abscess without bleeding
CPT/HCPCS: 36415; 74177; 82565; Q9967

== ENCOUNTER 2024-09-11 15:38 | Outpatient (OUT) | payer MEDICARE, OTHER, SELFPAY ==
--- OUTSIDE RECORDS SUMMARY | 2024-09-11 15:58 | XMS_ITS | CCD ---
Author Organization [facility] Care Team Providers Care Plate Stacker Hand Name Role Phone Onel Isaacs Primary Care Physician Carmella Liao Unavailable Unavailable Laura Gates Unavailable Unavailable Katie Villatoro Unavailable Unavailable Onel Isaacs MD Primary Care Provider AhmedRayraytham Unavailable Juan F Portillo MD Unavailable Onel Isaacs MD Primary Care Provider AhmedRayraytham Unavailable Juan F Portillo MD Unavailable Onel Isaacs MD Primary Care Provider AhmedRayraytham Unavailable Onel Isaacs MD Primary Care Provider AhmedRayraytham Unavailable Juan F Portillo MD Unavailable Onel Isaacs MD Unavailable Onel Isaacs MD Primary Care Provider Ahmed Haitham Unavailable Juan F Portillo MD Unavailable Onel Isaacs MD Unavailable Onel Isaacs MD Unavailable Juan F Portillo MD Unavailable Juan F Portillo MD Unavailable Onel Isaacs MD Unavailable Onel Isaacs MD Primary Care Provider REJI WEEMS Attending Unavailable HOY, ONEL M Primary Care Unavailable ABEBA KEEN Attending Unavailable LAFLATA, LUKE Referring Unavailable HOY, ONEL M Primary Care Unavailable OSMANI, ABEBA Referring Unavailable EDWIN ISAACSLAS M Primary Care Unavailable OSMANI ABEBA Attending Unavailable LAFLATA, LUKE Referring Unavailable HOMartinez, ONEL M Primary Care Unavailable ENTMARIBELL KONGD Referring Unavailable EDWIN ISAACSLAS M Primary Care Unavailable Per SNIDER Attending Unavailable Edwin Isaacslas Referring Unavailable Allergies Allergy Classification Reported Allergen(s) Allergy Type Date of Onset Reaction(s) Facility (6 sources) Acetaminophen / HYDROcodone; Translations: [acetaminophen-hy drocodone] Drug Allergy Unknown (qualifier value) [facility] (6 sources) Codeine; Translations: [codeine] Drug Allergy itching [facility] (20 sources) Lisinopril; Translations: [lisinopril] Drug Allergy 7 Cough [facility] (5 sources) Amoxicillin; Translations: [amoxicillin] Drug Allergy Diarrhea (finding) [facility] (1 source) Acetaminophen / oxyCODONE; Translations: [Percocet 5/325] Drug Allergy [facility] Repository Medications Current Medications Medication Drug Class(es) [...] mg by mouth once weekly Aspir 81 (5 sources) Start: 8 take 81 mg by [...] tablet by myesha th once daily. Take one tablet 60 minutes [...] 2 capsule by mouth twice per day. carisoprodol 350 mg oral tablet (1 source) Muscle Relaxant Start: 08-10-20 take 1 tablet by mouth twice daily carisoprodol 350 mg Tab 350 mg = 1 tab(s), Oral, BID, Refills(s) 0 Start Date: 08/10/24 Status: Ordered cholecalciferol 0.05 mg oral capsule (20 sources) [...] on above: Take 1 capsule by [facility] once daily. Take 1,000 Units by mouth twice daily. Co-Q10 (5 sources) Start: 2017 take 100 mg by [...] Dose unde r the tongue once daily. furosemide 20 mg oral tablet (1 source) Loop Diuretic Start: 2023 take 1 tablet by mouth once daily Lasix 20 mg Tab 20 mg = 1 tab(s), Oral, Daily, Refills(s) 0 Start Date: 08/10/24 Status: Ordered hydroCHLOROthiazide 25 mg oral tablet (20 sources) [...] take 1 tablet by mouth once daily irbesartan 300 mg Tab 300 mg = 1 tab(s), Oral, Daily, Refills(s) 0 Start Date: 03/01/23 Status: Ordered Start: 10-18-2021 End: 10-11-2022 take 1 tablet [...] oral tablet (20 sources) beta-Adrenergic Xiao Start: End: 2 take 1 tablet by mouth [...] 1 tablet by myesha th every evening Multivitamin preparation (1 source) Start: 4 take 1 tablet by mouth once daily multivitamin 1 tab(s), Oral, Daily, Refill(s) 0 Start Date: 08/10/24 Status: Ordered multivitamin tablet (20 sources) Start: 1 take 1 tablet by mouth once daily multivitamin tablet Take 1 tablet by mouth once daily. 0 04/12/2021 Active Comment on above: Take 1 tablet by myesha th once daily. cq-ig-E-theanine-herb no.310 (AIRBORNE EVERYDAY STRESS AWAY) 1,000 mg-200 mg-360 mg pwpk (13 sources) Start: 8 mn-ce-F-theanine-herb no.310 (AIRBORNE EVERYDAY STRESS AWAY) 1,000 mg-200 [...] the nose. tiZANidine 4 mg oral tablet (5 sources) Central alpha-2 Adrenergic Agonist Start: 05-19-2019 take 2 tablets by mouth at bedtime as needed for pain tiZANidine 4 mg Tab 8 mg = 2 tab(s), Oral, Bedtime, PRN Spasm, Refills(s) 0, Muscle pain Start Date: 05/19/19 Status: Ordered Start: 05-19-2019 take 1 tablet by myesha th every eight hours as needed for pain [...] on above: Take 1 capsule by [facility] once daily. Vitamin B-12 5000 mcg sublingual tablet (1 source) Start: 4 take 1 tablet under the tongue once daily Vitamin B-12 5000 mcg sublingual tablet 5,000 mcg = 1 tab(s), SubLingual, Daily, Refills(s) 0 Start Date: 08/10/24 Status: Ordered Vitamin D2 2000 intl units oral capsule (1 source) Start: 4 take 1 capsule by mouth once daily Vitamin D2 2000 intl units oral capsule 50 mcg = 1 cap(s), Oral, Daily, cap(s), Refills(s) 0 Start Date: 08/10/24 Status: Ordered Vitamin D3 (4 sources) Start: 9 take [...] Comment on above: [facility] Take 81 mg by mouth once daily. Calcium Citrate (5 sources) Start: take 2 tablets by mouth [...] Amide Local Anesthetic Start: 07-08-20 End: 07-08-20 lidocaine (PF) 10 mg/mL (1 %) 8 mL injection (XYLOCAINE) sf-xd-mxcN-asbNa-Glu- Juli-hc124 (AIRBORNE, ASCORBATE SODIUM,) 334-1.7 mg chew (4 sources) take 1 tablet by mouth once daily iy-bk-ywnV-asbNa-Glu -Juli-hc124 (AIRBORNE, ASCORBATE SODIUM,) 334-1.7 mg chew Take 1 tablet by mouth once daily. 0 Active Comment on above: Take 1 tablet by myesha th once daily. un-xq-moxM-asbNa-Glu- Juli-hc124 334-1.7 mg chew (17 sources) End: 08-13-20 take 1 tablet by mouth once daily fs-kb-livU-asbNa-Glu -Juli-hc124 334-1.7 mg chew Take 1 tablet by mouth once daily. 0 08/13/2023 Discontinued (Duplicate Entry) take 1 tablet by myesha th once daily vl-rm-phzS-vybDe-Kmm-Cpo-hc124 334-1.7 m g chew Take 1 tablet by mouth once daily. 0 Active Comment on above: Take 1 tablet by myesha th once daily. omega 1-ott-pqd-fish oil (FISH OIL) 900-1,400 mg cpDR (20 sources) Start: 04-12-2021 End: 02-11-2024 omega 7-tyl-gkp-fish oil (FISH OIL) 900-1,400 mg cpDR Take [...] Classification Problem Date Documented Da te Episodic/Chronic Abdominal hernia (2 sources) Incisional hernia; Translations: [Incisional hernia without obstruction or gangrene] Onset: Episodic Anxiety disorders (1 source) Generalized anxiety disorder 08-10-2024 Chronic Cardiac dysrhythmias (20 sources) Ventricular premature beats; Translations: [Paroxysmal atrial fibrillation] Onset: 8 08-25-2015 Chronic Comment on above: occasionally Chronic obstructive pulmonary disease and bronchiectasis (1 source) Chronic obstructive lung disease 08-10-2024 Chronic Conditions associated with dizziness or vertigo (1 source) Lightheadedness; Translations: [Dizziness and giddiness] Episodic Deficiency and other anemia (1 source) Iron deficiency anemia 08-10-2024 Episodic Disorders of lipid metabolism (20 sources) Hyperlipidemia; Translations: [Hyperlipidemia, unspecified] Onset: 8 08-19-2018 Chronic Diverticulosis and diverticulitis (4 sources) Diverticular disease 03-09-2022 Chronic Essential hypertension (20 sources) Hypertensive disorder; Translations: [Essential hypertension] Onset: 6 07-04-2010 Chronic Heart valve disorders (20 sources) Aortic incompetence, non-rheumatic ; Translations: [Nonrheumatic aortic (valve) insufficiency] Onset: 8 05-26-2018 Chronic Hemorrhoids (4 sources) Hemorrhoids 03-09-2022 Episodic Malaise and fatigue (2 sources) Physical deconditioning; Translations: [Other malaise] Episodic Nonspecific chest pain (6 sources) Precordial pain; Translations: [Precordial pain] Episodic Other and unspecified benign neoplasm (4 sources) Polyp of colon; Translations: [Polyp of colon] Onset: Episodic Other and unspecified benign neoplasm (5 sources) History of polyp of colon 02-07-2022 Episodic Other and unspecified benign neoplasm (1 source) Benign neoplasm of major salivary gland 08-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 Episodic Other circulatory disease (2 sources) History of replacement of ascending aorta; Translations: [Presence of other vascular implants and grafts] Chronic Other connective tissue disease (5 sources) Rotator cuff syndrome 02-05-2014 Episodic Other gastrointestinal disorders (20 sources) History of gastrointestinal bleed; Translations: [Personal history of other diseases of the digestive system] 08-11-2018 Episodic Other gastrointestinal disorders (4 sources) Loose stool 03-09-2022 Episodic Other lower respiratory disease (1 source) Dyspnea on exertion; Translations: [Other forms of dyspnea] Episodic Other nutritional; endocrine; and metabolic disorders (1 source) Overweight 08-10-2024 Episodic Other screening for suspected conditions (not mental disorders or infectious disease) (2 sources) Serum creatinine raised; Translations: [Other specified abnormal findings of blood chemistry] Episodic Other skin disorders (4 sources) Mass of parotid gland 11-01-2014 Episodic Comment on above: RIGHT Residual codes; unclassified (5 sources) FH: Hypertension 07-15-2014 Episodic Residual codes; unclassified (1 source) Procedure needed; Translations: [Other specified health status] Episodic Residual codes; unclassified (1 source) Difficulty managing exercise regime; Translations: [Other specified health status] Episodic Spondylosis; intervertebral disc disorders; other back problems (5 sources) Low back pain 02-05-2014 Episodic Unclassified (5 sources) Bleeding ulcer (morphologic abnormality) 11-01-2014 Comment on above: HX IN JUNE 2014 Unclassified (20 sources) Transition of care; Translations: [Transition of care performed with sharing of clinical summary] Onset: 08-20-2018 Past or Other Problems Problem Classification Problem Date Documented Da te Episodic/Chronic Administrative/social admission (20 sources) Discharge status; Translations: [Encounter for administrative examinations, unspecified] Onset: 08-11-2018 08-20-2018 Episodic Aortic; peripheral; and visceral artery aneurysms (20 sources) Thoracic aortic aneurysm without rupture; Translations: [Thoracic aortic aneurysm, without rupture] Onset: 05-26-2018 Resolved: 08-10-2024 08-19-2018 Chronic Cardiac dysrhythmias (20 sources) Palpitations; Translations: [Palpitations] Onset: 10-29-2016 10-29-2016 Episodic Coagulation and hemorrhagic disorders (2 sources) Secondary thrombocytopenia; Translations: [Other secondary thrombocytopenia] Onset: 08-12-2018 Resolved: 08-10-2024 08-19-2018 Episodic Complications of surgical procedures or medical care (2 sources) Hypotension following procedure; Translations: [Postprocedural hypotension] Onset: 08-12-2018 Resolved: 08-20-2018 08-13-2018 Episodic Congestive heart failure; nonhypertensive (2 sources) Heart failure; Translations: [Heart failure, unspecified] Onset: 08-12-2018 Resolved: 08-10-2024 08-14-2018 Chronic Diabetes mellitus without complication (1 [...] Test Name Value Interpretation Reference Range Facility Ambulatory Visit Summaryon 0 08-14-2024 Ambulatory Visit Summary Ambulatory Visit Summary WALLY BARROW :1945 Visit Date:08/14/2024 Ambulatory Visit Instructions Your Care Team Attending Physician - AGATHA SOLIZ, Per Chatman Primary Care Physician - Onel Isaacs MD Referring Physician - Onel Isaacs MD This Is Your Medications List Contact prescribing physician if questions or concerns aspirin (Aspir 81) calcium citrate carisoprodol (carisoprodol 350 mg Tab) cyanocobalamin (Vitamin B-12 5000 mcg sublingual tablet) ergocalciferol (Vitamin D2 2000 intl units oral capsule) furosemide (Lasix 20 mg Tab) irbesartan (irbesartan 300 mg Tab) multivitamin tizanidine (tiZANidine 4 mg Tab) ubiquinone (Co-Q10) Procedures Performed Colonoscopy (02/19/2022), EGD - esophagogastroduodenoscopy (02/2018), Colonoscopy (2014), EGD - esophagogastroduodenoscopy (09/2014), EGD - esophagogastroduodenoscopy (07/2014), EGD - esophagogastroduodenoscopy (06/2014), thumb arthritis, right (2005), Tonsillectomy (1958), Aortic valve, Cataract extraction and insertion of intraocular lens, cholecystecomy/umbilical hernia surgery, left rotator cuff repair 1-2-14, Parotidectomy, right knee surgery, right rotator cuff repair, sinus surgery. Discharge Vitals Heart Rate (Peripheral) 76 Respiratory Rate 16 Blood Pressure 151/85 Height 177.8 cm Height 70 in Weight 83.6 kg Weight 183.92 lb BMI 26.44 Medications What How Much When Instructions Unchanged aspirin (Aspir 81) 81 Milligram By Mouth Every day Contact prescribing physician if questions or concerns Unchanged calcium citrate 250 Milligram By Mouth 2 times a day takes 2 tabs Contact prescribing physician if questions or concerns Unchanged carisoprodol (carisoprodol 350 mg Tab) 1 Tablets By Mouth 2 times a day Contact prescribing physician if questions or concerns Unchanged cyanocobalamin (Vitamin B-12 5000 mcg sublingual tablet) 1 Tablets Sublingual Every day Contact prescribing physician if questions or concerns Unchanged ergocalciferol (Vitamin D2 2000 intl units oral capsule) 1 Capsules By Mouth Every day Contact prescribing physician if questions or concerns Unchanged furosemide (Lasix 20 mg Tab) 1 Tablets By Mouth Every day Contact prescribing physician if questions or concerns Unchanged irbesartan (irbesartan 300 mg Tab) 1 Tablets By Mouth Every day Contact prescribing physician if questions or concerns Unchanged multivitamin 1 Tablets By Mouth Every day Contact prescribing physician if questions or concerns Unchanged tizanidine (tiZANidine 4 mg Tab) 2 Tablets By Mouth At bedtime as needed for Spasm Contact prescribing physician if questions or concerns Unchanged ubiquinone (Co-Q10) 100 Milligram By Mouth Every day Contact prescribing physician if questions or concerns Allergies amoxicillin (Diarrhea) Vicodin (Unknown) codeine (itching) lisinopril (Cough) Problems Ongoing - Any problem that you are currently receiving treatment for. Atrial fibrillation Benign neoplasm of major salivary gland Bleeding ulcer Chronic obstructive pulmonary disease Diverticulosis Generalized anxiety disorder Hemorrhoids History of colon polyps HTN - Hypertension HTN - Hypertension Hyperlipidemia Iron deficiency anemia Loose stools Overweight Premature ventricular beats Historical - Any problem that you are no longer receiving treatment for. FH: Hypertension Heart failure Low back pain Rotator cuff tear Secondary thrombocytopenia Thoracic aortic aneurysm without rupture Patient Survey You may receive a survey via text or e-mail asking about your office visit. Please share your experience with us by completing your survey. We appreciate your feedback and thank you for choosing us for your care. [facility] C[facility]N Telephone (CARD P) WALLY BARROW ([id number]) 1945 M Date Time Provider Department 05/22/24 ABEBA KEEN CARD P During your visit today, we recorded the following information about you: Indira Gonzalez 05/22/2024 3:55 PM Signed Pt calling to speak with Abeba, he asks that she please return his call when she gets in on Saturday. Cb#:[phone] Abeba Keen APRN.CNP 05/26/2024 5:48 PM Signed Pt phoned regarding his . Spoke with Pt and documented in her chart. Abeba Keen APRN.TRACEY Allergies As of Date: 05/22/2024 Noted Allergy Reaction LISINOPRIL 04/26/2017 3 - Cough Date Reviewed: 07/08/2023 Reviewed by: Tonya Crouch OCCA - Fully Assessed Reason for Visit: Patient Question [2587] Prescriptions as of 05/26/2024 - irbesartan (AVAPRO) 300 mg tablet Take 1 tablet by mouth daily at bedtime. - hydroCHLOROthiazide 25 mg tablet Take 1 tablet by mouth once daily. - metoprolol succinate ER (TOPROL XL) 25 mg 24 hr tablet take 1 tablet by mouth every evening - iron bislaura,ps-FA-B-C#12-succ 65 mg-65 mg -1,000 mcg (24) tab Take 65 mg by mouth once weekly - aspirin, enteric coated (ASPIRIN, ENTERIC COATED) 81 mg EC tablet Take 81 mg by mouth once daily. - OTC PRODUCT once daily. OTC Force Factor take 3 tablet once per day - jz-qu-M-theanine-herb no.310 (AIRBORNE EVERYDAY STRESS AWAY) 1,000 mg-200 [...] Encounter Status:Closed by ABEBA KEEN on 05/26/24 [facility] CNOVon 02-11-2024 CNOV Office Visit (CARD P ) WALLY BARROW ([id number]) 1945 M Date Time Provider Department 02/11/24 9:00 AM ABEBA KEEN During your visit today, we recorded the following information about you: Pulse Blood pressure Weight 60/minute 128/80 89.5 kg Abeba Keen, [employer].POTTER [employer] CERAMIC ARTIST 02/25/2024 12:19 PM Addendum [facility] Department of Cardiovascular Medicine SECTION [...] Factor take 3 tablet once per day ca-vi-R-theanine-herb no.310 (AIRBORNE EVERYDAY STRESS AWAY) 1,000 mg-200 [...] well ap (more content not included)... Normal [facility] ALT SerPl-cCncon 02-05-2024 ALT [Catalytic activity/Vol] 22 U/L Normal 10-54 [facility] Comment on above: Order Comment: Speci men Type: BLOOD SPECIMEN Ordering Facility: [facility] Address: [address] [place] [address] Performed By: #### 1 742-6, 34341-0 #### [facility] CLIA [id number] [address] [place] [address] [place] #### 14514-8 #### [facility] CLIA [id number] [address] [place] [address] [place] [facility] CLIA [id number] [address] [place] [address] [place] Basic metabolic 2000 panelon 02-05-2024 Anion gap [Moles/Vol] 12 mmol/L Normal 9-18 [facility] Comment on above: Order Comment: Speci men Type: BLOOD SPECIMEN Ordering Facility: [facility] Address: [address] [place] [address] Performed By: #### 1 742-6, 49325-6 #### [facility] CLIA [id number] [address] [place] [address] [place] #### 22513-9 #### [facility] CLIA [id number] [address] [place] [address] [place] [facility] CLIA [id number] [address] [place] [address] [place] Calcium [Mass/Vol] 10.2 mg/dL Normal 8.5-10.2 [facility] Comment on above: Order Comment: Speci men Type: BLOOD SPECIMEN Ordering Facility: [facility] Address: [address] [place] [address] Performed By: #### 1 742-6, 45043-4 #### [facility] CLIA [id number] [address] [address] [place] #### 90610-8 #### [facility] CLIA [id number] [address] [facility] [address] [address] [place] [facility] CLIA [id number] [address] [place] [address] [place] Chloride [Moles/Vol] 105 mmol/L Normal 97-105 [facility] Comment on above: Order Comment: Speci men Type: BLOOD SPECIMEN Ordering Facility: [facility] Address: [address] [place] [address] Performed By: #### 1 742-6, 36343-0 #### [facility] CLIA [id number] 95[address] [facility] [address] [address] [place] #### 29764-3 #### [facility] CLIA [id number] [address] [address] [place] [facility] CLIA [id number] [address] [place] [address] [place] CO2 [Moles/Vol] 26 mmol/L Normal 22-30 [facility] Comment on above: Order Comment: Speci men Type: BLOOD SPECIMEN Ordering Facility: [facility] Address: [address] [place] [address] Performed By: #### 1 742-6, 90340-4 #### [facility] CLIA [id number] 95[address] [facility] [address] [address] [place] #### 51441-5 #### [facility] CLIA [id number] [address] [place] [address] [place] [facility] CLIA [id number] [address] STATES [facility] Creatinine [Mass/Vol] 1.18 mg/dL Normal 0.73-1.22 [facility] Comment on above: Order Comment: Speci men Type: BLOOD SPECIMEN Ordering Facility: [facility] Address: [address] [place] [address] Performed By: #### 1 742-6, 24326-3 #### [facility] CLIA [id number] [address] [place] [address] [place] #### 79250-6 #### [facility] CLIA [id number] [address] [place] [address] STATES [facility] CLIA [id number] [address] [place] [address] [place] [facility] Creatinine and Glomerular filtration rate.predicted panel (S/P/Bld) 64 mL/min/1.73m??? Normal >=60 [facility] Comment on above: Order Comment: Speci men Type: BLOOD SPECIMEN Ordering Facility: [facility] Address: [address] [place] [address] Result Comment: Debbie mated Glomerular Filtration Rate [...] actual GFR. Performed By: #### 1 742-6, 87307-5 #### [facility] CLIA [id number] [address] [place] [address] [place] #### 99145-1 #### [facility] CLIA [id number] [address] [place] [address] [place] [facility] CLIA [id number] [address] [place] [address] [place] Glucose [Mass/Vol] 96 mg/dL Normal 74-99 [facility] Comment on above: Order Comment: Chitra mcgowan Type: BLOOD SPECIMEN Ordering Facility: [facility] Address: [address] [place], [place] [id number] Result Comment: The [place] [employer] Association (ADA) provides guidance for cutoff [...] Standards of Medical Care in Diabetes 2016, [place] [employer]. Diabetes Care. 2016.39(Suppl 1). Performed By: #### 1 742-6, 40541-4 #### [facility] CLIA [id number] [address] [place] [address] [place] #### 47488-6 #### [facility] CLIA [id number] [facility] [address] [address] [place] [facility] CLIA [id number] [address] [place] [address] [place] Potassium [Moles/Vol] 3.7 mmol/L Normal 3.7-5.1 [facility] Comment on above: Order Comment: Speci men Type: BLOOD SPECIMEN Ordering Facility: [facility] Address: [address] [place] [address] Performed By: #### 1 742-6, 68905-0 #### [facility] CLIA [id number] [facility] [place] [address] [place] #### 49722-4 #### [facility] CLIA [id number] [address] [place] [id number] [place] [facility] CLIA [id number] [address] [place] [address] [place] Sodium [Moles/Vol] 143 mmol/L Normal 136-144 [facility] Comment on above: Order Comment: Speci men Type: BLOOD SPECIMEN Ordering Facility: [facility] Address: [address] [place] [address] Performed By: #### 1 742-6, 18638-8 #### [facility] CLIA [id number] [address] [place] [address] [place] #### 24871-3 #### [facility] CLIA [id number] [address] [place] [address] [place] [facility] CLIA [id number] [address] [place] [address] [place] Urea nitrogen [Mass/Vol] 16 mg/dL Normal 9-24 [facility] Comment on above: Order Comment: Speci men Type: BLOOD SPECIMEN Ordering Facility: [facility] Address: [address] [place] [address] Performed By: #### 1 742-6, 23333-4 #### [facility] CLIA [id number] [address] [place] [address] [place] #### 57137-9 #### [facility] CLIA [id number] [address] [place], [place] [id number] [place] [facility] CLIA [id number] [address] [place], [place] [id number] [place] Lipid 1996 panelon 4 Cholesterol [Mass/Vol] 156 mg/dL Normal <200 [facility] Comment on above: Order Comment: Speci men Type: BLOOD SPECIMEN Ordering Facility: [facility] Address: [address] [place] [address] Result Comment: <200 mg/dL, Desirable 200-239 mg/dL, Borderline high >239 mg/dL, High Performed By: #### 1 742-6, 40127-9 #### [facility] CLIA [id number] [facility] [place] [address] [place] #### 18375-7 #### [facility] CLIA [id number] [facility] [place] [address] [place] [facility] CLIA [id number] [address] [place] Cholesterol in HDL [Mass/Vol] 37 mg/dL Low >39 [facility] Comment on above: Order Comment: Speci men Type: BLOOD SPECIMEN Ordering Facility: [facility] Address: [address] [place] [address] Result Comment: 40-5 9 mg/dL, Acceptable >59 mg/dL, High: Negative risk factor for coronary heart disease <40 mg/dL, Low: Positive risk factor for coronary heart disease Performed By: #### 1 742-6, 48953-8 #### [facility] CLIA [id number] [address] [place] [address] [place] #### 30336-7 #### [facility] CLIA [id number] [address] [place] [address] [place] [facility] CLIA [id number] [facility] [place] [address] [place] Cholesterol in LDL [Mass/Vol] 79 mg/dL Normal <100 [facility] Comment on above: Order Comment: Speci men Type: BLOOD SPECIMEN Ordering Facility: [facility] Address: [address] [place] [address] Result Comment: <100 mg/dL, Optimal 100-129 mg/dL, Near optimal/above optimal 130-159 mg/dL, Borderline high 160-189 mg/dL, High >189 mg/dL, Very high Secondary prevention optimal LDL Cholesterol levels are recommended to be < 70 mg/dL Performed By: #### 1 742-6, 19967-7 #### [facility] CLIA [id number] [facility] [place] [address] [place] #### 35524-7 #### [facility] CLIA [id number] [facility] [place] [address] [place] [facility] CLIA [id number] [facility] [place] [address] [place] Cholesterol in LDL/Cholesterol in HDL [Mass ratio] 2.14 {ratio} Normal <2.54 [facility] Comment on above: Order Comment: Speci men Type: BLOOD SPECIMEN Ordering Facility: [facility] Address: [address] [place] [address] Result Comment: Refe melquiadesce: 1. National Cholesterol Education Program ATP III Guideline At-A-Glance Quick Desk Reference: National Heart, Lung, and Blood Patterson. National Institutes of Health. 2001: NIH Publication No. 01-3305. 2. An International Atherosclerosis Society position paper: global recommendations for the management of dyslipidemia: executive summary, Atherosclerosis. 2014: 232(2):410-413. Performed By: #### 1 742-6, 75994-0 #### [facility] CLIA [id number] [address] [place] [address] [place] #### 99391-7 #### [facility] CLIA [id number] [address] [place] [address] [place] [facility] CLIA [id number] [address] [place], [place] [address] [place] Cholesterol in VLDL [Mass/Vol] 40 mg/dL High <30 [facility] Comment on above: Order Comment: Speci men Type: BLOOD SPECIMEN Ordering Facility: [facility] Address: [address] [place] [address] Performed By: #### 1 742-6, 02039-3 #### [facility] CLIA [id number] [address] [place] [id number] [place] #### 32668-8 #### [facility] CLIA [id number] [address] [place] [id number] [place] [facility] CLIA [id number] [address] [place] [address] [place] Cholesterol non HDL [Mass/Vol] 119 mg/dL Normal <130 [facility] Comment on above: Order Comment: Speci men Type: BLOOD SPECIMEN Ordering Facility: [facility] Address: [address] [place] [address] Result Comment: <130 mg/dL, Optimal 130-159 mg/dL, Near optimal/above optimal 160-189 mg/dL, Borderline high 190-219 mg/dL, High >219 mg/dL, Very high Secondary prevention optimal non HDL Cholesterol levels are recommended to be <100 mg/dL Performed By: #### 1 742-6, 05580-9 #### [facility] CLIA [id number] [address] [place] [address] [place] #### 51000-7 #### [facility] CLIA [id number] [address] [place] [address] [place] [facility] CLIA [id number] [facility] [place] [address] [place] Cholesterol.total/C holesterol in HDL [Mass ratio] 4.22 {ratio} Normal <5.10 [facility] Comment on above: Order Comment: Speci men Type: BLOOD SPECIMEN Ordering Facility: [facility] Address: [address] [place] [id number] Performed By: #### 1 742-6, 85095-0 #### [facility] CLIA [id number] [address] [place] [address] [place] #### 38559-1 #### [facility] CLIA [id number] [address] [place] [address] [place] [facility] CLIA [id number] [address] [place] [address] [place] FASTING TIME 12 hrs Normal [facility] Comment on above: Order Comment: Speci men Type: BLOOD SPECIMEN Ordering Facility: [facility] Address: [address] [place] [address] Performed By: #### 1 742-6, 52190-9 #### [facility] CLIA [id number] [address] [place] [address] [place] #### 85935-9 #### [facility] CLIA [id number] [address] [place] [address] [place] [facility] CLIA [id number] [address] [place] [address] [place] Triglyceride [Mass/Vol] 199 mg/dL High <150 [facility] Comment on above: Order Comment: Speci men Type: BLOOD SPECIMEN Ordering Facility: [facility] Address: [address] [place] [address] Result Comment: <150 mg/dL, Normal 150-199 mg/dL, Borderline high 200-499 mg/dL, High >499 mg/dL, Very high Performed By: #### 1 742-6, 95113-9 #### [facility] CLIA [id number] [address] [place] [address] [place] #### 54101-6 #### [facility] CLIA [id number] [address] [place] [address] [place] [facility] CLIA [id number] [address] [place] [address] [place] CNOVon 08-13-2023 CNOV Office Visit (CARD P ) PUSHPAWALLY CARCAMO ([id number]) 1945 M Date Time Provider Department 08/13/23 11:00 AM ABEBA KEEN CARD P During your visit today, we recorded the following information about you: Pulse Blood pressure Weight 60/minute 132/85 84.9 kg Abeba Keen APRN.POTTER OR CERAMIC ARTIST 08/23/2023 4:31 PM [facility] Beni Bynum Department of Cardiovascular Medicine SECTION OF PREVENTIVE CARDIOLOGY 08/13/2023 Wally Barrow CURRENT MEDS: Current Outpatient Medications Medication Sig iron geo,ps-FA-B-C#12-succ 65 mg-65 mg -1,000 mcg (24) tab Take 65 mg by mouth once weekly irbesartan (AVAPRO) 300 mg tablet Take 1 tablet by mouth daily at bedtime. aspirin, enteric coated (ASPIRIN, ENTERIC COATED) 81 mg EC tablet Take 81 mg by mouth once daily. OTC PRODUCT once daily. OTC Force Factor take 3 tablet once per day sd-ta-P-theanine-herb no.310 (AIRBORNE EVERYDAY STRESS AWAY) 1,000 mg-200 [...] tablet 60 minutes prior to procedure. omega 3-ifn-cfl-fish oil (FISH OIL) 900-1,400 mg cpDR Take [...] Cigarettes Alcohol (more content not included)... Normal [facility] CNTHERAPYon 07-24-2023 CNTHERAPY OT/PT/Speech Visit ( GINGER) WALLY BARROW ([id number]) 1945 M Date Time Provider Department 07/24/23 12:15 PM LUCY HUTTON During your visit today, we recorded the following information about you: Pulse 75/minute Lucy Hutton, PT 07/24/2023 2:49 PM Signed Episode Visit [...] of daily living without right shoulder pain. Bland in home exercise program. Patient Goals: decrease shoulder pain Planned Interventions, Frequency, and Duration: Current Frequency: 1x/month Duration: 8 weeks Total Number of Visits Planned: 2 Planned Treatment Interventions: Therapeutic exercise (56456), Manual therapy (89192), Neuromuscular re-education (52197), Therapeutic activities (88400), Self-skilled nursing management (45624), Patient/Family/Caregiver Education, Body Mechanics Training PLAN FOR [...] Education Learni (more content not included)... Normal [facility] CNOVon 07-08-2023 CNOV Office Visit (ORTHMN ) WALLY BARROW ([id number]) 1945 M Date Time Provider Department 07/08/23 10:00 AM REJI WEEMS ORTHDARIUSZ During your visit today, we recorded the following information about you: Weight Height 82.1 kg 1.778 m Reji Weems MD 07/08/2023 11:39 AM Signed Reji Weems M.D. M.M.Sc. [employer] [facility] at [place] [id number] Office: [phone] Consult requested for an opinion regarding the evaluation and treatment of the above patient. My final impression and recommendations will be communicated back to the requesting physician by way of the shared medical record or letter via [place] mail. Patient info: Wally Barrow ([id number]) Service date: 07/08/2023 Referred by: No referring [...] physical therapy as well as topical and hiil-hng-kvpwsrs medications. Wally reports a current pain level [...] Cigarettes Quit (more content not included)... Normal [facility] Ashley 06-04-2023 [facility] Telephone (CARD P) WALLY BARROW ([id number]) 1945 M Date Time Provider Department 06/04/23 JUAN F PORTILLO CARD P During your visit today, we recorded the following information about you: Bekah Albarran 06/04/2023 12:33 PM Signed June 04, 2023 Patient Contact Number: [phone] Patient last seen within the last year: [...] Date Reviewed: 02/08/2023 Reviewed by: Per Simeon, Petrol Tanker Driver - Fully Assessed Reason for Visit: Medication Question [9058] Prescriptions as of 06/04/2023 - OTC PRODUCT once daily. OTC Force Factor take 3 tablet once per day - lw-oy-F-theanine-herb no.310 (AIRBORNE EVERYDAY STRESS AWAY) 1,000 mg-200 [...] 60 minutes prior to procedure. - omega 9-vtx-sau-fish oil (FISH OIL) 900-1,400 mg cpDR Take 1,400 mg by mouth once daily. - multivitamin tablet Take 1 tablet by mouth once daily. - olopatadine (PATADAY TWICE DAILY RELIEF) 0.1 % ophthalmic solution Use 1 Drop in both eyes twice daily. - iron bisgly,ps-FA-B-C#12-succ 65 mg-65 mg -1,000 mcg (24) tab Take 65 mg by mouth once daily. - calcium citrate/vitamin D3 (CALCIUM CITRATE + ORAL) Take by mouth twice daily. Pt takes 2 chewables by mouth twice per day. - docosahexaenoic acid/epa (FISH OIL ORAL) (Discontinued) Take 1,400 mg by mouth twice daily. - sh-dt-qgjQ-wthJs-Jep-Upp-hc12 4 334-1.7 mg chew Take 1 tablet by [...] Encounter Status:Closed by BEKAH ALBARRAN on 06/04/23 Normal [facility] EXERCISE STRESS ECG (WITHOUT IMAGING)on 02-08-2023 [facility] Basic metabolic 2000 panelon 02-06-2023 Anion gap [Moles/Vol] 11 mmol/L 9 - 18 mmol/L [facility] Calcium [Mass/Vol] 9.8 mg/dL 8.5 - 10. 2 mg/dL [facility] Chloride [Moles/Vol] 107 mmol/L High 97 - 105 mmol/L [facility] CO2 [Moles/Vol] 25 mmol/L 22 - 30 mmol/L [facility] Creatinine [Mass/Vol] 1.43 mg/dL High 0.73 - 1.22 mg/dL [facility] Estimated Glomerular Filtration Rate 51 mL/min/1.73m Low >=60 mL/min/1.73 m [facility] Glucose [Mass/Vol] 93 mg/dL 74 - 99 mg/dL [facility] Potassium [Moles/Vol] 3.7 mmol/L 3.7 - 5.1 mmol/L [facility] Sodium [Moles/Vol] 143 mmol/L 136 - 144 mmol/L [facility] Urea nitrogen [Mass/Vol] 20 mg/dL 9 - 24 mg/dL [facility] CBC panel Auto (Bld)on 02-06 Erythrocyte distribution width (RBC) [Ratio] 14.1 % 11.5 - 15.0 % [facility] Hematocrit (Bld) [Volume fraction] 46.7 % 39.0 - 51.0 % [facility] Hemoglobin (Bld) [Mass/Vol] 15.2 g/dL 13.0 - 17.0 g/dL [facility] MCH (RBC) [Entitic mass] 29.0 pg 26.0 - 34.0 pg [facility] MCHC (RBC) [Mass/Vol] 32.5 g/dL 30.5 - 36.0 g/dL [facility] MCV (RBC) [Entitic vol] 89.1 fL 80.0 - 100.0 fL [facility] Nucleated RBC (Bld) [#/Vol] <0.01 k/uL [facility] Platelet mean volume (Bld) [Entitic vol] 11.0 fL 9.0 - 12.7 fL [facility] Platelets (Bld) [#/Vol] 152 10*3/uL 150 - 400 k/uL [facility] RBC (Bld) [#/Vol] 5.24 10*6/uL 4.20 - 6.0 0 m/uL [facility] WBC (Bld) [#/Vol] 7.89 10*3/uL 3.70 - 11.00 k/uL [facility] NM CARDIAC PERF STRESS/PHARM on 01-11-2023 [facility] CHEMISTRYOrdered By: SYSTEM SYSTEM on 01-07-2023 Creatinine [Mass/Vol] 1.2 mg/dL Normal 0.5 - 1.3 mg/dL [facility] [place] Remisol GFR/1.73 sq M.predicted among blacks MDRD (S/P/Bld) [Vol rate/Area] mL/min/1.73 m2 Normal >=59mL/min/ 1.73 m2 [facility] [place] Chem S GFR/1.73 sq M.predicted among non-blacks MDRD (S/P/Bld) [Vol rate/Area] 59 mL/min/1.73 m2 Normal >=59mL/min/ 1.73 m2 [facility] [place] Chem S CHEMISTRYOrdered By: SYSTEM SYSTEM on 05-18-2022 Creatinine [Mass/Vol] 1.2 mg/dL Normal 0.5 - 1.3 mg/dL [facility] [place] Remisol GFR/1.73 sq M.predicted among blacks MDRD (S/P/Bld) [Vol rate/Area] mL/min/1.73 m2 Normal >=59mL/min/ 1.73 m2 [facility] [place] Chem S GFR/1.73 sq M.predicted among non-blacks MDRD (S/P/Bld) [Vol rate/Area] 59 mL/min/1.73 m2 Normal >=59mL/min/ 1.73 m2 [facility] [place] Chem S NM CARDIAC PERF STRESS/EXERC ISEon 04-11-2022 [facility] Large Joint Arthro/Inj: R zach boogie joint [facility] Vital Signs Date Time Vital Sign Value Performing Clinician Facility 08-14-2024 14:11-0400 Blood Pressure Location Per GAONAL [facility] 08-14-2024 14:11-0400 Diastolic blood pressure 85 mm[Hg] Per NILL [facility] [place] 08-14-2024 14:11-0400 Heart rate 76 /min Per NILL [facility] [place] 08-14-2024 14:11-0400 Respiratory rate 16 /min Per NILL [facility] 08-14-2024 14:11-0400 Systolic blood pressure 151 mm[Hg] Per NILL [facility] [place] 02-11-2024 09:35-0400 Body weight 89.5 kg Abeba Keen APRN.POTTER OR CERAMIC ARTIST Work Phone: [facility] 02-11-2024 09:35-0400 Diastolic blood pressure 80 mm[Hg] Abeba Keen APRN.POTTER OR CERAMIC ARTIST Work Phone: [facility] 02-11-2024 09:35-0400 Heart rate 60 /min Abeba [place] [employer].POTTER OR CERAMIC ARTIST Work Phone: [facility] 02-11-2024 09:35-0400 Systolic blood pressure 128 mm[Hg] Abeba Osmani [employer]ARY [employer].POTTER OR CERAMIC ARTIST Work Phone: [facility] 08-13-2023 11:50-0400 Diastolic blood pressure 85 mm[Hg] Abeba [place] [employer].POTTER OR CERAMIC ARTIST Work Phone: [facility] 08-13-2023 11:50-0400 Systolic blood pressure 132 mm[Hg] Abeba [place] [employer].POTTER OR CERAMIC ARTIST Work Phone: [facility] 08-13-2023 11:39-0400 Body weight 84.87 kg Abeba Osmani [employer]ARY [employer].POTTER OR CERAMIC ARTIST Work Phone: [facility] 08-13-2023 11:39-0400 Heart rate 60 /min Abeba Osmani [employer].POTTER OR CERAMIC ARTIST Work Phone: [facility] 07-08-2023 10:21-0400 Body height 177.8 cm Reji Weems MD Work Phone: [facility] 07-08-2023 10:21-0400 Body weight 82.1 kg Reji Weems MD Work Phone: [facility] 02-08-2023 10:54-0400 Body height 177.8 cm [facility] Work Phone: [facility] 02-08-2023 10:54-0400 Body weight 83.46 kg [facility] Work Phone: [facility] 02-08-2023 10:54-0400 Diastolic blood pressure 84 mm[Hg] [facility] Work Phone: [facility] 02-08-2023 10:54-0400 Heart rate 66 /min [facility] Work Phone: [facility] 02-08-2023 10:54-0400 Systolic blood pressure 132 mm[Hg] [facility] Work Phone: [facility] 02-06-2023 16:08-0400 Body height 177.8 cm Juan F Portillo MD Work Phone: [facility] 02-06-2023 16:08-0400 Body weight 83.46 kg Juan F Portillo MD Work Phone: [facility] 02-06-2023 16:08-0400 Diastolic blood pressure 84 mm[Hg] Juan F Portillo MD Work Phone: [facility] 02-06-2023 16:08-0400 Heart rate 70 /min Juan F Portillo MD Work Phone: [facility] 02-06-2023 16:08-0400 Systolic blood pressure 123 mm[Hg] Juan F Portillo MD Work Phone: [facility] 01-11-2023 13:33-0500 Diastolic blood pressure 64 mm[Hg] Abeba [place] [employer].POTTER OR CERAMIC ARTIST Work Phone: [facility] 01-11-2023 13:33-0500 Systolic blood pressure 110 mm[Hg] Abeba Osmani [employer].POTTER OR CERAMIC ARTIST Work Phone: [facility] 01-11-2023 13:23-0500 Body weight 84.01 kg Abeba [place] [employer]ARY [employer].POTTER OR CERAMIC ARTIST Work Phone: [facility] 01-11-2023 13:23-0500 Heart rate 78 /min Abeba [place] [employer]ARY [employer].POTTER OR CERAMIC ARTIST Work Phone: [facility] 08-15-2022 11:02-0400 Body height 177.8 cm Juan F Portillo MD Work Phone: [facility] 08-15-2022 11:02-0400 Body weight 82.56 kg Juan F Portillo MD Work Phone: [facility] 08-15-2022 11:02-0400 Diastolic blood pressure 72 mm[Hg] Juan F Portillo MD Work Phone: [facility] 08-15-2022 11:02-0400 Heart rate 65 /min Juan F Portillo MD Work Phone: [facility] 08-15-2022 11:02-0400 Systolic blood pressure 114 mm[Hg] Juan F Portillo MD Work Phone: [facility] 02-19-2022 11:25-0400 Diastolic blood pressure 92 mm[Hg] Tyler SALAM [facility] 02-19-2022 11:25-0400 Heart rate 47 /min Tyler SALAM [facility] 02-19-2022 11:25-0400 Respiratory rate 18 /min Tyler SALAM [facility] 02-19-2022 11:25-0400 SaO2% (BldA) [Mass fraction] 99 % Tyler SALAM [facility] 02-19-2022 11:25-0400 Systolic blood pressure 128 mm[Hg] Tyler SALAM [facility] 02-19-2022 11:15-0400 Diastolic blood pressure 92 mm[Hg] Tyler SALAM [facility] 02-19-2022 11:15-0400 Heart rate 46 /min Tyler SALAM [facility] 02-19-2022 11:15-0400 Respiratory rate 15 /min Tyler SALAM [facility] 02-19-2022 11:15-0400 SaO2% (BldA) [Mass fraction] 98 % Tyler SALAM [facility] 02-19-2022 11:15-0400 Systolic blood pressure 128 mm[Hg] Tyler SALAM [facility] 02-19-2022 11:00-0400 Diastolic blood pressure 78 mm[Hg] Tyler SALAM [facility] 02-19-2022 11:00-0400 Heart rate 51 /min Tyler MarvinAM [facility] 02-19-2022 11:00-0400 Respiratory rate 20 /min Tyler [employer] [facility] 02-19-2022 11:00-0400 SaO2% (BldA) [Mass fraction] 97 % Tyler MarvinAM [facility] 02-19-2022 11:00-0400 Systolic blood pressure 122 mm[Hg] Tyler [employer] [facility] 02-19-2022 10:46-0400 Body temperature 97.16 [degF] [facility] [employer] [facility] 02-19-2022 10:14-0400 Blood Pressure Location Tyler [employer] [facility] 02-19-2022 10:14-0400 Body temperature 98.06 [degF] [facility] Encounters Encounter Date Encounter Type Care Provider Facility Start: 08-14-2024 End: 08-14-2024 ambulatory Per SNIDER Facility:[facility] Start: 08-14-2024 End: 08-14-2024 Patient encounter procedure Per SNIDER [facility] Start: 08-07-2024 ambulatory Per SNIDER Facility:[facility] Start: 05-22-2024 Telephone encounter Abeba reynolds APRN.POTTER OR CERAMIC ARTIST Work Phone: [facility] Comment on above: Patient Question Start: 02-11-2024 End: 02-11-2024 ambulatory ABEBA KEEN Facility:[facility] Start: 02-11-2024 End: 02-11-2024 Patient encounter procedure Abeba Osmani [employer].POTTER OR CERAMIC ARTIST Work Phone: [facility] Comment on above: Hyperlipidemia, unsp ecified hyperlipidemia type (Primary Dx); Essential hypertension; S/P AVR Start: 02-05-2024 End: 02-05-2024 ambulatory [facility] Facility:[facility] Start: 11-11-2023 Refill Juan F Portillo MD Work Phone: [facility] Comment on above: Refill Request Start: 08-19-2023 Refill Juan F Portillo MD Work Phone: [facility] Comment on above: Refill Request Start: 08-13-2023 End: 08-13-2023 [facility] Facility:[facility] Start: 08-13-2023 End: 08-13-2023 Patient encounter procedure Abeba Stoutns SECRETARY BOARD OF COMMISSIONERS.POTTER OR CERAMIC ARTIST Work Phone: Preventive Cardiology Comment on above: Hyperlipidemia, unsp ecified hyperlipidemia type (Primary Dx); Essential hypertension; S/P AVR Start: 07-24-2023 End: 07-24-2023 ambulatory 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, initial encounter Start: 06-04-2023 Telephone encounter Juan F emerson MD Work Phone: Preventive Cardiology Comment on above: Medication Question Start: 03-28-2023 End: 03-28-2023 Patient encounter procedure Onel Isaacs [facility] Start: 03-12-2023 Telephone encounter Juan F emerson MD Work Phone: Preventive Cardiology Comment on above: Patient Question (An y additional testing?) Start: 02-08-2023 End: 02-08-2023 Patient encounter procedure Hannah Taylor APRN.POTTER OR CERAMIC ARTIST Work Phone: Preventive Cardiology Comment on above: [...] End: 01-11-2023 Patient encounter procedure Abeba Keen APRN.POTTER OR CERAMIC ARTIST Work Phone: Preventive Cardiology Comment on above: S/P AVR (Primary Dx) ; Essential hypertension; Chest discomfort Start: 01-11-2023 End: 01-11-2023 Subsequent hospital visit by physician Card Injection Molecular Imaging Comment on above: Chest pain, unspecif ied type [R07.9] Start: 01-08-2023 Orders Only Juan F Portillo MD Work Phone: Cardiology Comment on above: Chest pain, unspecif ied type (Primary Dx) Start: 01-07-2023 Orders Only Todd Donald i, MD Work Phone: Preventive Cardiology Comment on above: Chest pain, unspecif ied type (Primary Dx) Start: 01-07-2023 End: 01-07-2023 Patient encounter procedure Onel Dae [facility] Start: 12-28-2022 Telephone encounter Hvi Thorac ic Surg Consult [facility] Comment on above: Consult (Self referr ing); Received Outside Medical Records Start: 12-27-2022 Telephone encounter Onel Isaacs MD Work Phone: NOC Comment on above: Appointment Start: 11-12-2022 Refill Juan F Portillo MD Work Phone: Preventive Cardiology Comment on above: Refill Request Start: 10-11-2022 Refill Clarisse Gee APRN .POTTER OR CERAMIC ARTIST Work Phone: Preventive Cardiology Comment on above: Refill Request Start: 08-15-2022 End: 08-15-2022 Patient encounter procedure Juan F Portillo MD Work Phone: Preventive Cardiology Comment on above: S/P AVR (Primary Dx) ; Essential (primary) hypertension Start: 08-10-2022 Telephone encounter Juan F emerson MD Work Phone: Preventive Cardiology Comment on above: Lab Orders (Get labs done?) Start: 05-18-2022 End: 05-18-2022 Patient encounter procedure Onel Isaacs [facility] Start: 04-11-2022 End: 04-11-2022 Subsequent hospital visit by physician Card Injection Molecular Imaging Comment on above: Precordial pain [R07 .2] Start: 03-27-2022 Orders Only Todd Donald i, MD Work Phone: Cardiology Comment on above: Precordial pain (Christin iban Dx) Start: 03-20-2022 Refill Hannah obrien [employer].POTTER OR CERAMIC ARTIST Work Phone: Preventive Cardiology Comment on above: Refill Request Start: 02-19-2022 End: 02-19-2022 Patient encounter procedure Jayson ADDISON [facility] Start: 08-11-2018 End: 08-15-2018 Patient encounter status Abeba Keen SECR[employer]ARY [employer].POTTER OR CERAMIC ARTIST Work Phone: [facility] Work Phone: Procedures Date Procedure Procedure Detail Performing Clinician Start: 07-08-2023 History of repair of musculotendinous cuff of shoulder S/P right rotator cuff repair Reji Weems MD Work Phone: Start: 07-08-2023 Arthrocentesis aspir&/inj major jt/bursa w/o us Reji Weems MD Work Phone: Start: 02-08-2023 Cv strs tst xers&/or rx cont ecg trcg only Hannah Taylor APRN.POTTER OR CERAMIC ARTIST Work Phone: Start: 01-11-2023 Myocardial spect multiple studies Todd Nunn MD Work Phone: Start: 04-11-2022 Myocardial spect multiple studies Todd Nunn MD Work Phone: Start: 02-19-2022 Colonoscopy Tyler CATALINASILKE Comment on above: 2 colon polyps, diverticulosis t/o colon , moderate IH Start: 02-23-2018 Esophagogastroduodenoscopy Per CANDELARIAL Start: 01-09-2017 Adult depression screening assessment Hannah Taylor APRN.POTTER OR CERAMIC ARTIST Work Phone: Start: 11-25-2014 Colonoscopy Jayson ADDISON Start: 09-25-2014 Esophagogastroduodenoscopy Per CANDELARIAL Start: 07-26-2014 Esophagogastroduodenoscopy Per NILL Start: 06-25-2014 Esophagogastroduodenoscopy Per NILL Start: 11-25-2004 thumb arthritis, right Jayson ADDISON Start: 11-25-1957 Tonsillectomy Jayson ADDISON Aortic valve structu re (body structure) Onel Isaacs Cataract extraction and insertion of intraocular lens Jayson ARNOLDAM Comment on above: BILATERAL cholecystecomy/umbil ical hernia surgery 3 Jayson ARNOLDAM Comment on above: 2005 left rotator cuff repair -14 Tyler SALAM Parotidectomy Per SNIDER right hand/wrist surgery Zach carcamo SALAM right knee surgery Tyler CATALINA AM right rotator cuff repair Owen duncan SALAM sinus surgery Tyler SALAM Plan of Treatment Date Care Activity Detail Author Start: 08-12-2030 Urine microalbumin profile [facility] Start: 08-10-2027 LIPID SCREEN LIPID SCREEN [facility] Start: 02-04-2027 [facility] Start: 05-24-2026 LIPID SCREEN LIPID SCREEN [facility] Start: 04-05-2026 DIABETES SCREEN DIABETES SCREEN [facility] Start: 04-05-2026 [facility] Start: 02-06-2026 DIABETES SCREEN DIABETES SCREEN [facility] Start: 08-10-2025 DIABETES SCREEN DIABETES SCREEN [facility] Start: 08-19-2024 End: 08-19-2024 Patient encounter procedure 08/19/2024 11:00 AM EDT Office Visit Preventive Cardiology [address] [place] [address] Abeba Keen, SECRETARY [employer].POTTER OR CERAMIC ARTIST [address] [place] [address] 6 month f/u per pt Preventive Cardiology Comment on above: 6 month f/u per pt Start: 07-26-2024 Influenza vaccination Influenza Vacc ine (#1) [facility] Start: 05-24-2024 DIABETES SCREEN DIABETES SCREEN [facility] Start: 01-24-2024 End: 03-25-2024 Alanine aminotransferase [Enzymatic activity/volume] in Serum or Plasma ALT/SGPT Lab Routine Hyperlipidemia, unspecified hyperlipidemia type Essential hypertension Expected: 01/24/2024, Expires: 03/25/2024 [facility] Work Phone: Comment on above: Expected: 01/24/2024 , Expires: 03/25/2024 Start: 01-24-2024 End: 03-25-2024 Basic metabolic 2000 panel - Serum or Plasma BASIC METABOLIC PNL Lab Routine Hyperlipidemia, unspecified hyperlipidemia type Essential hypertension Expected: 01/24/2024, Expires: 03/25/2024 [facility] Work Phone: Comment on above: Expected: 01/24/2024 , Expires: 03/25/2024 Start: 01-24-2024 End: 03-25-2024 Lipid 1996 panel - Serum or Plasma LIPID PANEL BASIC Lab Routine Hyperlipidemia, unspecified hyperlipidemia type Essential hypertension Expected: 01/24/2024, Expires: 03/25/2024 [facility] Work Phone: Comment on above: Expected: 01/24/2024 , Expires: 03/25/2024 Start: 01-11-2024 BP CONTROLLED (<130/80) BP CONTROLLE D (<130/80) [facility] Start: 01-04-2024 Covid-19 Vaccine () Covid-19 Vaccine () [facility] Start: 11-25-2023 Advance Directive Discussion Advance Directive Discussion [facility] Start: 11-25-2023 Behavioral Health Screening Behavioral Health Screening [facility] Start: 11-25-2023 Depression Assessment Depression Ass essment [facility] Start: 08-15-2023 BP CONTROLLED (<130/80) BP CONTROLLE D (<130/80) [facility] Start: 07-26-2023 Covid-19 Vaccine () Covid-19 Vaccine () [facility] Start: 07-26-2023 Influenza vaccination C [facility] Start: 03-13-2023 End: 05-13-2023 Comprehensive metabolic 2000 panel - Serum or Plasma COMP METABOLIC PANEL Lab Routine Hyperlipidemia, unspecified hyperlipidemia type Expected: 03/13/2023, Expires: 05/13/2023 [facility] Work Phone: Comment on above: Expected: 03/13/2023 , Expires: 05/13/2023 Start: 03-13-2023 End: 05-13-2023 Lipid 1996 panel - Serum or Plasma LIPID PANEL BASIC Lab Routine Hyperlipidemia, unspecified hyperlipidemia type Expected: 03/13/2023, Expires: 05/13/2023 [facility] Work Phone: Comment on above: Expected: 03/13/2023 , Expires: 05/13/2023 Start: 02-21-2023 End: 04-23-2023 Basic metabolic 2000 panel - Serum or Plasma BASIC METABOLIC PNL Lab Routine Elevated serum creatinine Expected: 02/21/2023, Expires: 04/23/2023 [facility] Work Phone: Comment on above: Expected: 02/21/2023 , Expires: 04/23/2023 Start: 02-12-2023 End: 04-14-2023 Comprehensive metabolic 2000 panel - Serum or Plasma COMP METABOLIC PANEL Lab Routine S/P AVR Expected: 02/12/2023, Expires: 04/14/2023 [facility] Work Phone: Comment on above: Expected: 02/12/2023 , Expires: 04/14/2023 Start: 02-12-2023 End: 04-14-2023 Lipid 1996 panel - Serum or Plasma LIPID PANEL BASIC Lab Routine S/P AVR Essential (primary) hypertension Expected: 02/12/2023, Expires: 04/14/2023 [facility] Work Phone: Comment on above: Expected: 02/12/2023 , Expires: 04/14/2023 Start: 02-05-2023 BP CONTROLLED (<130/80) BP CONTROLLE D (<130/80) [facility] Start: 11-25-2022 ADVANCE DIRECTIVE DISCUSSION ADVANCE DIRECTIVE DISCUSSION [facility] Start: 11-25-2022 DEPRESSION ASSESSMENT DEPRESSION ASS ESSMENT [facility] Start: 07-26-2022 Influenza vaccination INFLUENZA (#1) [facility] Start: 05-03-2022 COVID-19 VACCINE (5 - Booster for Pfizer series) COVID-19 VACCINE (5 - Booster for Pfizer series) [facility] Start: 04-11-2022 End: 04-26-2023 NM CARDIAC PERF STRESS/EXERCISE NM CARDIAC PERF STRESS/EXERCISE Radiology Routine Precordial pain Expected: 04/11/2022, Expires: 04/26/2023 [facility] Work Phone: Comment on above: Expected: 04/11/2022 , Expires: 04/26/2023 Start: 11-25-2021 ADVANCE DIRECTIVE DISCUSSION ADVANCE DIRECTIVE DISCUSSION [facility] Start: 11-25-2021 DEPRESSION ASSESSMENT DEPRESSION ASS ESSMENT [facility] Start: 09-16-2020 SHINGRIX VACCINE (2 of 2) ROD GRIX VACCINE (2 of 2) [facility] Start: 06-10-2018 Pneumococcal Vaccine : 65+ (2 - PPSV23 or PCV20) Pneumococcal Vaccine: 65+ (2 - PPSV23 or PCV20) [facility] Start: 06-10-2018 PNEUMOCOCCAL: 65+ (2 - PPSV23 if available, else PCV20) PNEUMOCOCCAL: 65+ (2 - PPSV23 if available, else PCV20) [facility] Start: 06-10-2018 PNEUMOCOCCAL: 65+ (2 - PPSV23 or PCV20) PNEUMOCOCCAL: 65+ (2 - PPSV23 or PCV20) [facility] Start: 01-09-2018 Adult depression scr eening assessment DEPRESSION SCREENING [facility] Start: 2011 PNEUMOVAX AGE 65 AND OVER WITH 5YR LOOKBACK (#1) PNEUMOVAX AGE 65 AND OVER WITH 5YR LOOKBACK (#1) [facility] Start: 1991 COLOGUARD (FIT-DNA) COLOGUARD (FIT-D NA) [facility] Start: 1991 Colonoscopy COLONOSCOPY [facility] Start: 1991 COLORECTAL CANCER SCREENING COLORECTAL CANCER SCREENING [facility] Start: [address] COLONOGRAPHY [facility] Start: 1991 FECAL OCCULT BLOOD FECAL OCCULT BLOO D [facility] Start: 1991 SIG[facility]OS[facility] Start: 1964 ANNUAL PCP TEAM PHARMACEUTICAL ANALYST WILBERT DISEASE VISIT ANNUAL PCP TEAM CHRONIC DISEASE VISIT [facility] Start: 1964 BP CONTROLLED (<130/80) BP CONTROLLE D (<130/80) [facility] Start: 1964 HEPATITIS C SCREENING HEPATITIS C [facility] Start: 1964 Hepatitis C screening Hepatitis C [facility] End: 01-08-2024 ECG COMPLETE ECG COMPLETE ECG Routine Chest pain, unspecified type 1 Occurrences starting 01/08/2023 until 01/08/2024 [facility] Work Phone: Comment on above: 1 Occurrences starti ng 01/08/2023 until 01/08/2024 End: 08-15-2023 Echocardiography ECHO Cardiology Routine S/P AVR 1 Occurrences starting 08/15/2022 until 08/15/2023 [facility] Work Phone: Comment on above: 1 Occurrences starti ng 08/15/2022 until 08/15/2023 End: 03-13-2024 Echocardiography ECHO Cardiology Routine S/P ascending aortic replacement Nonrheumatic aortic valve insufficiency 1 Occurrences starting 03/13/2023 until 03/13/2024 [facility] Work Phone: Comment on above: 1 Occurrences starti ng 03/13/2023 until 03/13/2024 NM CARDIAC PERF STRESS/PHARM NM CARDIAC PERF STRESS/PHARM Radiology Routine Chest pain, unspecified type Ordered: 01/08/2023 [facility] Work Phone: Comment on above: Ordered: 01/08/2023 [facility] Immunizations Immunization Date Immunization Notes Care Provider Fa cili 08-15-2023 influenza virus vacc ine, unspecified formulation Abeba Keen APRN.CNP Work Phone: [facility] 09-11-2022 influenza virus vacc ine, unspecified formulation Onel Isaacs [facility] 09-11-2022 SARS-CoV-2 (COVID-19 ) [id number] Onel Isaacs [facility] 03-08-2022 SARS-CoV-2 (COVID-19 ) mRNA-1273 vaccine Onel Hoy [facility] 10-13-2021 SARS-CoV-2 (COVID-19 ) mRNA-1273 vaccine Onel Hoy [facility] 09-28-2021 influenza virus vacc ine, unspecified formulation Onel Hoy [facility] 08-25-2021 influenza virus vacc ine, unspecified formulation Tyler SALAM [facility] 02-10-2021 SARS-CoV-2 (COVID-19 ) mRNA BNT-162b2 vax Onel Hoy [facility] 01-20-2021 SARS-CoV-2 (COVID-19 ) mRNA BNT-162b2 vax Onel Hoy [facility] Comment on above: Result Comment: 2022: [id number] 09-24-2020 pneumococcal polysaccharide vaccine, 23 valent Onel Hoy [facility] 09-21-2020 zoster vaccine recombinant Onel Hoy [facility] 08-12-2020 tetanus toxoid, redu richar diphtheria toxoid, and acellular pertussis vaccine, adsorbed Onel Hoy [facility] 08-03-2020 influenza virus vacc ine, unspecified formulation Onel Hoy [facility] 07-22-2020 zoster vaccine recombinant Onel Hoy [facility] 09-15-2019 influenza virus vacc ine, unspecified formulation Onel Hoy [facility] 07-22-2018 influenza virus vacc ine, unspecified formulation Onel Hoy [facility] 07-22-2018 influenza, high dose seasonal, preservative-free Hannah Taylor [employer] Work Phone: [facility] Work Phone: 10-11-2017 influenza virus vacc ine, unspecified formulation Onel Isaacs [facility] 10-11-2017 Seasonal trivalent influenza vaccine, adjuvanted, preservative free Hannah Taylor [employer].[facility] Work Phone: [facility] Work Phone: 06-10-2017 pneumococcal conjuga te vaccine, 13 valent Hannah Taylor [employer].[facility] Work Phone: [facility] Work Phone: 12-05-2015 influenza virus vacc ine, unspecified formulation Onel Isaacs [facility] 12-05-2015 influenza, seasonal, injectable, preservative free Hannah Taylor [employer].[facility] Work Phone: [facility] Work Phone: 10-05-2014 influenza virus vacc ine, unspecified formulation Onel Isaacs [facility] 10-05-2014 influenza, injectabl e, quadrivalent, contains preservative Hannah Taylor [employer].[facility] Work Phone: [facility] Work Phone: 08-28-2005 tetanus toxoid, adsorbed Chr istina Taylor [employer].[facility] Work Phone: [facility] Work Phone: Payers Date Payer Category Payer Private Health Insurance HU[employer]NA HUMANA MEDICARE SUPPLEMENT [id number] 2015-Present [id number] [place] [id number] Indemnity [id number] 2015 Private Health Insurance HUMANA HUMANA MEDICARE SUPPLEMENT [id number] 2015-Present [phone] [address] [address] [place] [address] Indemnity [id number] 2015 Medicare [id number] 2013 Medicare MEDICARE MEDICAR E A AND B [id number] 2013-Present [phone] [address] [address] [place] [address] Medicare [id number] 2013 Medicare MEDICARE MEDICAR E A AND B [id number] 2013-Present [phone] [place] [address] Medicare [id number] 2013 Medicare [id number] 2013 Unknown [facility] OCCUPATIONAL HE[employer] LINK [id number] 07/26/2013-Present [phone] [place] [address] [address] [place] [address] [facility] [id number] 1945 Unknown [id number] Social History Date Type Detail Facility Start: 02-07-2022 End: 08-14-2024 Tobacco smoking status Ex-smoker (finding) [facility] Start: 02-08-2023 End: 07-08-2023 Sex Assigned At Male [facility] End: 08-11-1990 History of tobacco use Current smoker [facility] End: 08-11-1990 History of tobacco use Cigarette Smoker [facility] Start: 10-29-2016 End: 07-08-2023 Cigarettes smoked current (pack per day) - Reported 1.5 [facility] Start: 10-29-2016 End: 08-15-2022 Tobacco use and exposure Smokeless tobacco non-user [facility] Start: 02-09-2022 End: 02-11-2024 Alcohol intake Current drinker of alcohol (finding) [facility] Start: 10-29-2016 History SDOH Alcohol Comment social [facility] Start: 1945 Sex Assigned At Male C [facility] Start: 04-01-2022 End: 08-15-2022 Exposure to SARS-CoV-2 (event) Not sure [facility] Tobacco smoking status Never [facility] Start: 08-15-2022 Tobacco Comment Quit over 30 yrs ago [facility] Start: 07-07-2019 Gender identity Identifies as male gender (finding) [facility] Start: 07-07-2019 Sexual orientation Heterosexual (lata kaplan) [facility] Medical Equipment Procedure Code Equipment Code Equipment Original Text Equipment Identifier Dates Graft Gelweave V alsalva 30mm 15cm Cardiovascular Woven Aortic Root - [id number] Start: 08-12-2018 Junction Thk1.65mm P tfe 4x.5in Cardiovascular Sterile - [id number] Start: 08-12-2018 Valve Aort 27mm Crp-Ed Thfx - [id number] Start: 08-12-2018 Goals Date Patient Goal Desired Activity /State Personal health goal Functional Status Date Assessment Result Facility 08-14-2024 Functional Status N/A [facility] General Surgery [place] Clinical Notes 08-15-2018 to 08-14-2024 Telephone Encounter - Abeba Keen APRN.POTTER OR CERAMIC ARTIST - 05/26/2024 5:47 PM EDTTelephone Encounter - Abeba Keen APRN.POTTER OR CERAMIC ARTIST - 05/26/2024 5:47 PM Abeba Mahan APRN.POTTER OR CERAMIC ARTIST - 02/11/2024 9:18 AM EDTLaboratory Note Date & Type Note Facility 08-14-2024 Note General Surgery Offi ce/Clinic Note Chief Complaint consultation for hernia HPI Staff 78 year old male presents on consultation from Dr. Isaacs for supraumbilical hernia. Reports noting bulge several years ago. Denies change in size since first noted. Reports bulge is reducible but does not stay reduced. Denies bulge being red. Denies discomfort at site of bulge but notes pain to the left of bulge when bulge is reduced. Denies nausea, vomiting or bowel changes. CT abdomen/pelvis completed 08/04 with small, fat containing supraumbilical hernia. History of Present Illness 78 yo male with h/o htn, hyperlipidemia, COPD, AVR, atrial fibrillation, ZBIGNIEW, referred for epigastric hernia; abdominal operations significant for cholecystectomy and umbilical hernia repair; on baby asa daily, no NSAID use; patient reports long h/o bulge in epigastrium at subxiphoid port site; no change in size, some soreness to left of midline when hernia reduced; no skin changes, no N/V; recent abd/pelvic ct scan with small epigastric hernia containing fat, fascial defect 1.3 cm, no inflammation. no tobacco use; on baby asa, no NSAID use. Review of Systems PHQ Score Initial Depression Screen Score: 0 SCORE ROS - Provider Constitutional: no fever, no sweats, no weight loss. Eyes: no glasses, no blurred vision, no visual loss. ENMT: no dentures, no hoarseness, no swallowing difficulties, no hearing loss, no ear infection(s), no nose bleeds. Cardiovascular: normal blood pressure, no chest pain, regular heartbeat, no heart murmur. Respiratory: no shortness of breath, no cough, no asthma, no wheezing. Gastrointestinal: no nausea, no vomiting, no diarrhea, no constipation, no blood in stool, no change in bowel habits, no abdominal pain, no hepatitis. Genitourinary: no kidney stones, no urine infection, no dysuria. Musculoskeletal: no pain, no weakness. Skin: no changing moles, no rash, no skin lumps. Neurologic: no seizures, no epilepsy, no headache. Psychiatric: no emotional or psychiatric problem. Heme/Lymph: no bleeding problems, no anemia, no blood clots, no transfusions. Allergy/Immunologic: no swollen lymph nodes/glands, no IV drug abuse. Other: Additional ROS info: Except as noted in the above Review of Systems and in the History of Present Illness, all other systems have been reviewed and are negative or noncontributory. Physical Exam Vitals & Measurements HR: 76(Peripheral) RR: 16 BP: 151/85 HT: 70 in HT: 177.8 cm WT: 83.6 kg WT: 183.92 lb BMI: 26.44 HEENT: normal conjunctiva, sclera clear, no scleral icterus, EOM intact, PERRLA, oral mucosa moist without lesions. Neck: trachea midline, no mass, symmetric, no thyromegaly or nodules, no adenopathy Respiratory: lungs CTA, respirations non labored. Cardiovascular: regular rate and rhythm, no murmur, no pedal edema or varicosities. Gastrointestinal: soft, non distended, no tenderness, no masses, small reducible epigastric port site hernia, nontender, no skin changes, diastasis recti yes, no hepatosplenomegaly; normal bs Lymphatic: no cervical adenopathy, no supraclavicular adenopathy. Musculoskeletal: normal gait, digits and nails without infection, nodes, cyanosis, clubbing. Skin: no rashes, no lesions, no ulcers, no subcutaneous nodules, induration. Psychiatric/Neuro: oriented to time, place, person, judgement normal, affect appropriate for age, insight intact, no focal deficits. Tests: , x-rays reviewed, review of old records completed , Assessment/Plan 1. 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 Follow-up No qualifying data available Problem List/Past Medical History Ongoing Atrial fibrillation Benign neoplasm of major salivary gland Bleeding ulcer Chronic obstructive pulmonary disease Diverticulosis Generalized anxiety disorder Hemorrhoids History of colon polyps HTN - Hypertension HTN - Hypertension Hyperlipidemia Incisional hernia Iron deficiency anemia Loose stools Overweight Premature ventricular beats Historical FH: Hypertension Heart failure Low back pain Rotator cuff tear Secondary thrombocytopenia Thoracic aortic aneurysm without rupture Procedure/Surgical History Colonoscopy (02/19/2022), EGD - esophagogastroduodenoscopy (02/2018), Colonoscopy (2014), EGD - esophagogastroduodenoscopy (09/2014), EGD - esophagogastroduodenoscopy (07/2014), EGD - esophagogastroduodenoscopy (06/2014), thumb arthritis, right (2004), Tonsillectomy (1958), Aortic valve, Cataract extraction and insertion of intraocular lens, cholecystecomy/umbilical hernia surgery, left rotator cuff repa (more content not included)... [facility] Comment on above: Result Comment: Elec tronically Signed By: Per SNIDER MD\Date and Time Signed: 08/14/24 16:26 EDT 05-26-2024 Telephone encounter Note Pt phoned regarding his . Spoke with Pt and documented in her chart. Abeba Keen APRN.CNP [facility] 05-26-2024 Miscellaneous Notes Pt phoned regarding his . Spoke with Pt and documented in her chart. Abeba Keen APRN.CNP Pt calling to speak with Abeba, he asks that she please return his call when she gets in on Saturday. Cb#:[phone] documented in this encounter [facility] 05-22-2024 Telephone encounter Note Pt calling to speak with Abeba, he asks that she please return his call when she gets in on Saturday. Cb#:[phone] [facility] 02-11-2024 Note HNO ID: [id number] Author: ABEBA KEEN APRN.CNP Service: ? Author Type: Nurse Practitioner Type: Progress Notes Filed: 02/25/2024 12:19 Note Text: [facility] Department of Cardiovascular Medicine SECTION OF PREVENTIVE CARDIOLOGY 02/11/2024 Frankiedominique Pak Pushpa CURRENT MEDS: Current Outpatient Medications Medication Sig [...] Factor take 3 tablet once per day or-cz-P-theanine-herb no.310 (AIRBORNE EVERYDAY STRESS AWAY) 1,000 mg-200 [...] without murmur, nor (more content not included)... [facility] 02-11-2024 History of Present illness Narrative Images from the original note were not included. [facility] Department of Cardiovascular Medicine SECTION [...] Factor take 3 tablet once per day gq-ob-H-theanine-herb no.310 (AIRBORNE EVERYDAY STRESS AWAY) 1,000 mg-200 [...] 74 - 99 mg/dL Final Comment: The [place] Diabetes Association (ADA) provides guidance for cutoff [...] Standards of Medical Care in Diabetes 2016, [place] Diabetes Association. Diabetes Care. 2016.39(Suppl 1). TSH [...] for Disease Control and Prevention and the [place] Heart Association. Circulation 2003;107:499-511. Creatinine Date Value [...] lightheadedness and decreased motivation to start daily boom storage. Will discuss timing of repeat echo with [...] please let us know. Last visit with [facility] physician: Faye 02/06/23 AMBULATORY PATIENT EDUCATION Topic: Education on risk factors and medications. Instruction Provided To: Patient Cognitive Ability: Alert/Oriented Barriers: None Motivation to Learn: Interested Methods of Instruction: Verbal instruction and/or handouts. Patient Leans Best By: Multiple Methods Patient Verbalized: Understanding I personally spent 32 minutes in total time involved in the management and care of this patient. Abeba Keen APRN.POTTER OR CERAMIC ARTIST documented in this encounter [facility] 11-11-2023 Miscellaneous Notes Call from patient requesting refill. Requested Prescriptions Pending Prescriptions Disp Refills hydroCHLOROthiazide 25 mg tablet 90 tablet 3 Sig: Take 1 tablet by mouth once daily. Patient last seen 08/17 Indira Lieberman Pss documented in this encounter [facility] 08-13-2023 Note HNO ID: [id number] Author: Abeba Keen APRN.CNP Service: ? Author Type: Nurse Practitioner Type: Progress Notes Filed: 08/23/2023 4:31 PM Note Text: [facility] Department of Cardiovascular Medicine SECTION [...] Factor take 3 tablet once per day kx-nn-H-theanine-herb no.310 (AIRBORNE EVERYDAY STRESS AWAY) 1,000 mg-200 [...] tablet 60 minutes prior to procedure. omega 4-rlq-twq-fish oil (FISH OIL) 900-1,400 mg cpDR Take [...] kg/m? BMI 26 (more content not included)... [facility] 08-13-2023 History of Present illness Narrative Images from the original note were not included. [facility] Department of Cardiovascular Medicine SECTION [...] Factor take 3 tablet once per day pa-ze-Z-rola-herb no.310 (AIRBORNE EVERYDAY STRESS AWAY) 1,000 mg-200 [...] tablet 60 minutes prior to procedure. omega 9-vmp-xck-fish oil (FISH OIL) 900-1,400 mg cpDR Take [...] LEFT AXIS DEVIATION ABNORMAL ECG Confirmed by LEEANNE SOLIZ, [facility] ([id number]) on 01/14/2023 10:15:12 AM Ejection Fraction: Ejection [...] 74 - 99 mg/dL Final Comment: The [place] Diabetes Association (ADA) provides guidance for cutoff [...] Standards of Medical Care in Diabetes 2016, [place] Diabetes [employer]. Diabetes Care. 2016.39(Suppl 1). TSH Date Value Ref Range Status 01/09/2017 1.830 0.400 - 5.500 uU/mL Final UltraSens C-Reactive Protein Date Value Ref Range Status 02/27/2017 0.3 <3.1 mg/L Final Comment: (NOTE) hsCRP < 1.0 mg/L, relative risk is low hsCRP 1.0-3.0 mg/L, relative risk is average hsCRP > 3.0 mg/L, relative risk is high Reference: Whit Franco GA, Kj RW, et al. Markers of Inflammation and Cardiovascular Disease. Application to Clinical and Public Health Practice. A Statement for Healthcare Professionals From the Centers for Disease Control and Prevention and the [place] Heart Association. Circulation 2003;107:499-511. Creatinine Date Value [...] and care of this patient. Abeba Keen APRN.POTTER OR CERAMIC ARTIST documented in this encounter [facility] 07-24-2023 Note HNO ID: [id number] Author: Lucy Hutton PT Service: ? Author [...] of daily living without right shoulder pain. Bland in home exercise program. Patient Goals: decrease shoulder pain Planned Interventions, Frequency, and Duration: Current Frequency: 1x/month Duration: 8 weeks Total Number of Visits Planned: 2 Planned Treatment Interventions: Therapeutic exercise (76539), Manual therapy (73409), Neuromuscular re-education (33069), Therapeutic activities (44724), Self-skilled nursing management (66659), Patient/Family/Caregiver Education, Body Mechanics Training PLAN FOR [...] treatment interventions for (more content not included)... [facility] 07-08-2023 Note HNO ID: [id number] Author: Reji Weems MD Service: ? Author Type: Physician Type: Progress Notes Filed: 07/08/2023 11:39 AM Note Text: Reji Weems M.D. M.M.Sc. Rail [facility]her of Orthopaedic Surgery at [place] [address] Office: [phone] Consult requested for an opinion regarding the evaluation and treatment of the above patient. My final impression and recommendations will be communicated back to the requesting physician by way of the shared medical record or letter via [place] mail. Patient info: Wally Barrow ([id number]) Service date: 07/08/2023 Referred by: No referring [...] physical therapy as well as topical and xgwd-nal-dsxhlfr medications. Wally reports a current pain level [...] Alcohol/week: 6.0 stand (more content not included)... [facility] 07-08-2023 History of Present illness Narrative Associated Order(s): Large Joint Arthro/Inj: R shoulder joint Post-Procedure Diagnose(s): S/P right rotator cuff repair; Traumatic complete tear of right rotator cuff, initial encounter Images from the original note were not included. Reji RiveraM.Sc. Rail Washer of Orthopaedic Surgery at [place] [address] Office: [phone] Consult requested for an opinion regarding the evaluation and treatment of the above patient. My final impression and recommendations will be communicated back to the requesting physician by way of the shared medical record or letter via US mail. Patient info: Wally Barrow ([id number]) Service date: 07/08/2023 Referred by: No referring [...] physical therapy as well as topical and zamn-wza-thbogwt medications. Wally reports a current pain level [...] each date are displayed. Orthopaedic Injection History 8/14/23 Location shoulder Shoulder Site R shoulder joint [...] 2 capsule by mouth twice per day. qv-xb-rybH-rrfIs-Tnu-Rpe-hc124 334-1.7 mg chew Take 1 tablet by [...] Factor take 3 tablet once per day wy-zn-O-rola-herb no.310 (AIRBORNE EVERYDAY STRESS AWAY) 1,000 mg-200 [...] tablet 60 minutes prior to procedure. omega 4-qoe-ohv-fish oil (FISH OIL) 900-1,400 mg cpDR Take [...] shoulder joint Informed Consent Consent Obtained: Verbal [place] Protocol A moment to CARE was completed. [...] Shoulder and Elbow Surgeon Orthopaedic Surgery Department [place], [place] [address] Tell: [phone] Appt:[phone] 07/08/2023 10:14 AM CC: documented in this encounter [facility] 06-04-2023 Miscellaneous Notes June 04, 2023 Patient Contact Number: [phone] Patient last seen within the last year: [...] Yes Bekah Albarran documented in this encounter [facility] 03-13-2023 Miscellaneous Notes I called spoke with patient, and informed orders for labs and echo are now in chart so can schedule to have done. Roselyn Orders for labs and echo placed Clarisse Gee APRN.CNP March 12, 2023 Patient Contact Number: [phone] Patient last seen within the last year: [...] Yes Roselyn Aden documented in this encounter [facility] 02-08-2023 Instructions Jamarcus Watts, Petrol Tanker Driver - 02/08/2023 2:15 PM EDT Images from [...] outside the ones listed below): *Smart Watch (Sellbrite, CityLive, [employer], etc); *POLAR chest strap (model: H10 with any POLAR wrist watch, such as the POLAR UNITE); *Garmin chest strap (model: HRM-Pro Plus with any Garmin watch, such as the LLUSTRE 5); *PenPatho 5 or 7 sport watch *Commercial heart [...] 6-20 scale) Frequency per week: -Daily Weeks 25-28: Total minutes per day (not including warm-up [...] improves orthostatic tolerance in healthy subjects. Circulation. 2002;106(22):3831-1988). Do not gulp or chug water. Slowly [...] listed above. *Commercial brands include for example: *ReferBright Watch (Sellbrite, CityLive, [employer], etc); *POLAR chest strap (model: H10 with any POLAR wrist watch, such as the POLAR UNITE); *Garmin chest strap (model: HRM-Pro Plus with any Garmin watch, such as the VIVOSMART 5); *Mango [employer] 5 or 7 sport watch *Commercial heart rate monitors are not medical devices and the information acquired from these devices should not be used to make medical diagnostic decisions. *Do NOT monitor your HR while performing activities of daily living or other types of quick physical movements throughout your day. *If necessary/needed, keep a brief exercise log for self-management (free apps such as Spling my Walk or [employer] Pal or on paper). *Set a hard (upper) time limitation on how much time you will spend on each exercise session so that fitting/dedicating time for exercise does not become stressful and a burden. Evidence Based Guidelines: Cody H, Jen H, Silverio A, et al. Personalized exercise prescription in the prevention and treatment of arterial hypertension: a Consensus Document from the Association of Preventive Cardiology (EAPC) and the ESC [place] on Hypertension. Eur J Prev Cardiol. 2021;29(1):205-215. [...] Physical Activity Guidelines for Americans. CARLOS ENRIQUE. 2018;320(19):7643-3326. General Weight Management Recommendations: *I recommend aiming to lose approximately 0.5 lb per week for the next 3 months in order to achieve a body weight of 178 lbs. *Mediterranean style diet is recommended. Take our quiz to see how compliant you are with the Mediterranean style diet: [email or web address] -ybl-euoscf-h-mediterranean-diet/ *When eating carbohydrates, look for low glycemic [...] exercise prescription. *As needed, Virtual Visit (Visit [email or web address]. Questions? Contact technical support at [phone]) in 6-8 months for follow up discussions regarding progress made with your exercise plan. *If you would like more information on cardiac rehabilitation, please visit our dedicated [facility] web-page aimed at providing evidence-based information on heart health at the following, [email or web address]. Thank you for your visit with us today in Preventive Cardiology and Rehabilitation. Jamarcus Watts, PhD Director, Cardiac Rehabilitation Staff, Section of Preventive Cardiology & Rehabilitation [facility] [address] [place] [address] Office: [phone] Appointment Desk: [phone] option #3 documented in this encounter [facility] 02-08-2023 History of Present illness Narrative Images from the original note were not included. [facility] Department of Cardiovascular Medicine SECTION [...] Factor take 3 tablet once per day xk-om-Q-theanine-herb no.310 (AIRBORNE EVERYDAY STRESS AWAY) 1,000 mg-200 [...] tablet 60 minutes prior to procedure. omega 3-enz-qdf-fish oil (FISH OIL) 900-1,400 mg cpDR Take [...] 2 chewables by mouth twice per day. jp-va-sycA-zhjFo-Yqc-Lbl-hc124 334-1.7 mg chew Take 1 tablet by [...] daily[place] [address] [place]. Readiness for change:Preparation (intent to change [...] 74 - 99 mg/dL Final Comment: The [place] Diabetes Association (ADA) provides guidance for cutoff [...] Standards of Medical Care in Diabetes 2016, [place] Diabetes Association. Diabetes Care. 2016.39(Suppl 1). TSH [...] outside the ones listed below): *Smart Watch (Sellbrite, CityLive, [employer], etc); *POLAR chest strap (model: H10 with any POLAR wrist watch, such as the POLAR UNITE); *[employer] chest strap (model: HRM-Pro Plus with any Garmin watch, such as the LLUSTRE 5); *PenPatho 5 or 7 sport watch *Commercial heart [...] 6-20 scale) Frequency per week: -Daily Weeks -: Total minutes per day (not including warm-up [...] improves orthostatic tolerance in healthy subjects. Circulation. 2002;106(22):5108-9229). Do not gulp or chug water. Slowly [...] *Commercial brands include for example: *Smart Watch (Sellbrite, CityLive, [employer], etc); *POLAR chest strap (model: H10 with any POLAR wrist watch, such as the POLAR UNITE); *Garmin chest strap (model: HRM-Pro Plus with any Garmin watch, such as the VIVOSMART 5); *Suunto 5 or 7 sport watch *Commercial heart rate monitors are not medical devices and the information acquired from these devices should not be used to make medical diagnostic decisions. *Do NOT monitor your HR while performing activities of daily living or other types of quick physical movements throughout your day. *If necessary/needed, keep a brief exercise log for self-management (free apps such as Spling my Walk or [employer] Pal or on paper). *Set a hard (upper) time limitation on how much time you will spend on each exercise session so that fitting/dedicating time for exercise does not become stressful and a burden. Evidence Based Guidelines: Hanssen H, [place] H, Silverio A, et al. Personalized exercise prescription in the prevention and treatment of arterial hypertension: a Consensus Document from the Association of Preventive Cardiology (EAPC) and the ESC [place] on Hypertension. Eur J Prev Cardiol. 2021;29(1):205-215. [...] Physical Activity Guidelines for Americans. CARLOS ENRIQUE. 2018;320(19):7966-8844. General Weight Management Recommendations: *I recommend aiming to lose approximately 0.5 lb per week for the next 3 months in order to achieve a body weight of 178 lbs. *Mediterranean style diet is recommended. Take our quiz to see how compliant you are with the Mediterranean style diet: [email or web address]/are -ddg-rsahuj-m-mediterranean-diet/ *When eating carbohydrates, look for low glycemic [...] exercise prescription. *As needed, Virtual Visit (Visit [email or web address]. Questions? Contact technical support at [phone]) in 6-8 months for follow up discussions regarding progress made with your exercise plan. *If you would like more information on cardiac rehabilitation, please visit our dedicated [facility] web-page aimed at providing evidence-based information on heart health at the following, [email or web address]. Thank you for your visit with us [...] Exercise and lifestyle guidance as above per informaticist. I have reviewed the documentation obtained and [...] instruction and/or handouts. documented in this encounter [facility] 02-06-2023 History of Present illness Narrative Images from the original note were not included. Heart, Vascular, and Thoracic [facility] Department of Cardiovascular Medicine SECTION [...] Factor take 3 tablet once per day ap-og-Q-theanine-herb no.310 (AIRBORNE EVERYDAY STRESS AWAY) 1,000 mg-200 [...] tablet 60 minutes prior to procedure. omega 6-rvy-auw-fish oil (FISH OIL) 900-1,400 mg cpDR Take [...] in the CT contrast administration guidelines link. lm-at-ofbT-hczOx-Tgz-Juu-hc124 334-1.7 mg chew Take 1 tablet by [...] Factor take 3 tablet once per day zu-hi-A-theanine-herb no.310 (AIRBORNE EVERYDAY STRESS AWAY) 1,000 mg-200 [...] tablet 60 minutes prior to procedure. omega 6-jhz-ics-fish oil (FISH OIL) 900-1,400 mg cpDR Take [...] in the CT contrast administration guidelines link. yb-hd-rgaY-edrPf-Lxb-Osm-hc124 334-1.7 mg chew Take 1 tablet by [...] my office phone number, office fax number, [employer] instructions, and my work email address. Wally Barrow was strongly encouraged to use [employer] for communication if possible, but my email address was provided if needed. Juan F Portillo MD AMBULATORY PATIENT EDUCATION Topic: Hyperlipidemia and Hypertension Instruction Provided To: Patient Barriers: None Motivation to Learn: Interested Methods of Instruction: Verbal instruction and/or handouts. Patient Leans Best By: Multiple Methods Patient Verbalized: Understanding documented in this encounter [facility] 01-11-2023 History of Present illness Narrative Images from the original note were not included. [facility] Department of Cardiovascular Medicine SECTION OF PREVENTIVE CARDIOLOGY 01/11/2023 Wally Barrow CURRENT MEDS: Current Outpatient Medications Medication Sig cr-gr-M-theanine-herb no.310 (AIRBORNE EVERYDAY STRESS AWAY) 1,000 mg-200 [...] tablet 60 minutes prior to procedure. omega 4-ghq-znx-fish oil (FISH OIL) 900-1,400 mg cpDR Take [...] in the CT contrast administration guidelines link. kk-qm-emuJ-eoxQq-Ylp-Qcj-hc124 334-1.7 mg chew Take 1 tablet by [...] 74 - 99 mg/dL Final Comment: The [place] Diabetes Association (ADA) provides guidance for cutoff [...] Standards of Medical Care in Diabetes 2016, [place] Diabetes Association. Diabetes Care. 2016.39(Suppl 1). TSH [...] for Disease Control and Prevention and the [place] Heart Association. Circulation 2003;107:499-511. Creatinine Date Value [...] know. Last visit with [facility] physician: Faye 07/2022 AMBULATORY PATIENT EDUCATION Topic: Education on risk factors and medications. Instruction Provided To: Patient Cognitive Ability: Alert/Oriented Barriers: None Motivation to Learn: Interested Methods of Instruction: Verbal instruction and/or handouts. Patient Leans Best By: Multiple Methods Patient Verbalized: Understanding I personally spent 35 minutes in total time involved in the management and care of this patient. Abeba Keen APRN.POTTER OR CERAMIC ARTIST documented in this encounter [facility] 01-11-2023 History of Present illness Narrative RADIOLOGY SERVICE PROGRESS NOTE SERVICE DATE: 01/11/2023 SERVICE TIME: 10:18 AM PATIENT IDENTITY VERIFICATION COMPLETED USING TWO (2) STANDARD IDENTIFIERS: Name and Date of confirmed by patient verbally and Name and Date of confirmed by identification band PATIENT GENDER DATA: male ALLERGIES: Reviewed and unchanged MEDICATIONS REVIEWED BY: Petrol Tanker Driver PROCEDURE TYPE: NM STRESS: 0.4 mg of [...] safety can be found using this link: [email or web address] [email or web address] SIGNATURE: Jo Wynne RN PATIENT NAME: Wally Barrow DATE: January 11, 2023 TIME: 10:18 AM PAGER/CONTACT #: [id number] documented in this encounter [facility] 01-01-2023 Miscellaneous Notes Images from the original [...] anticoagulate, which is in line with Mr. Pushpa's wishes. FOLLOW UP: We recommend a 6 [...] us if needed Maryann Torres RN Received [employer] Staff Message from external referring denise/ JOCY rao (Aicha) Wally Pak Pushpa is being referred to Unspecified Thoracic Surgeon [...] office for scheduling. Please call pt at [phone]. Patient was informed consultation could be at [place] or [place]: No Patient Registration: Registration complete/updated: yes Insurance card(s) scanned in [facility] with in the past year: No Pt's [employer] is active. Ok to communicate to pt via [employer] yes Medical Records: Records in [facility] (internal [facility] records): No Imaging in [facility] (internal [facility] records): No Care Everywhere - queried yes, downloaded Yes Linked Outside Organizations (list): Isaac Marquez [facility] Records Requested: yes Date: 12-28-2022 Outside Hospital(s) requested records from: PCP Dr. Isaacs Received: no Uploaded: No. Waiting on additional records: Yes. Missing (list): Office Notes Radiology Report(s) [facility] Pathology Slides Requested: no Date: N/A Outside [...] No Laurence Christie documented in this encounter [facility] [place] 12-27-2022 Miscellaneous Notes Reason for call: Mr Barrow called and he would like to schedule an appointment with a thoracic surgeon as soon as possible Home and cell number [phone] Diagnosis right side muscle pain Kind Regards Rosa documented in this encounter [facility] [place] 11-12-2022 Miscellaneous Notes Call from patient requesting refill. Requested Prescriptions Pending Prescriptions Disp Refills hydroCHLOROthiazide (HYDRODIURIL, ESIDRIX) 25 mg tablet 90 tablet 3 Sig: Take 1 tablet by mouth once daily. Patient last seen 08/16 Indira Zavala documented in this encounter [facility] [place] 10-15-2022 Miscellaneous Notes The following approved medication [...] 07/2022 Bekah Albarran documented in this encounter [facility] [place] 08-15-2022 History of Present illness Narrative Images from the original note were not included. Heart, Vascular, and Thoracic [facility]i Bynum Department of Cardiovascular Medicine SECTION [...] 10/13 visit he did fine. Saw Clarisse Manuelmelissa in clinic about 2 months ago for sharp R sided chest pain. Had CT with PCP that did not reveal any bony abnormality. Not associated with exertion, atypical. TGs were elevated on last blood work, repeat pending today. His is having a TAVR here in 2 weeks. After 09/2020 visit saw Ezekiel Taylor NOTE KEEPER in follow-up in 02/13. Notes daily mild [...] 1 tablet by mouth once daily. omega 2-epr-dwq-fish oil (FISH OIL) 900-1,400 mg cpDR Take [...] in the CT contrast administration guidelines link. [id number] 334-1.7 mg chew Take 1 tablet by [...] of CAD: Negative Active this summer in Has treadmill using daily 1 hour Avg. [...] of CAD: Negative Active this summer in Has treadmill using daily 1 hour Avg. [...] 1 tablet by mouth once daily. omega 2-pqp-kci-fish oil (FISH OIL) 900-1,400 mg cpDR Take [...] in the CT contrast administration guidelines link. [id number]-[id number]-[id number]-[id number] 334-1.7 mg chew Take 1 tablet by [...] 1) status post AVR Status post AVR (Yanely Bolton, #27 CE valve) and aortic root and [...] follow-up with Abeba Keen (sees his ) The medical decision making for this patient encounter was of moderatecomplexity I provided Wally Barrow with my contact information at this visit (or a prior visit.) This information includes my office phone number, office fax number, [employer] instructions, and my work email address. Wally Barrow was strongly encouraged to use [employer] for communication if possible, but my email address was provided if needed. Juan F Portillo MD AMBULATORY PATIENT EDUCATION Topic: Hyperlipidemia and Hypertension Instruction Provided To: Patient Barriers: None Motivation to Learn: Interested Methods of Instruction: Verbal instruction and/or handouts. Patient Leans Best By: Multiple Methods Patient Verbalized: Understanding documented in this encounter [facility] [place] 08-10-2022 Miscellaneous Notes August 10, 2022 Patient Contact Number: [phone] Patient last seen within the last year: [...] Yes Roselyn Aden documented in this encounter [facility] [place] 04-11-2022 History of Present illness Narrative RADIOLOGY [...] STATUS: Discontinued PROCEDURE TYPE: NM Stress: 13.0mCi Nt30u-Lxkoxut was administered IV for Rest Imaging at 0905. 32 mCi Ca75c-Zbtljqv was administered IV for Stress Imaging at 1018 by RT Luz Marina(R) . PATIENT DISCHARGED TO: Ambulatory patient, left [place] department area. A Diagnostic radioactive procedure has taken place, with no further precautions necessary other than routine body substance precautions. More information regarding radiation safety can be found using this link: [email or web address] [email or web address]% 20-%20Diagnostic%20Nuclear%20Medicine% 20Procedures.pdf SIGNATURE: RT Althea(R) PATIENT NAME: Wally Barrow DATE: April 11, 2022 TIME: 9:10 AM PAGER/CONTACT #: documented in this encounter [facility] [place] 03-20-2022 Miscellaneous Notes Call from patient requesting refill. Patient is scheduled for dental work on 03/28/22. Pending Prescriptions Disp Refills AZITHROMYCIN 500 MG TABLET 1 tablet 0 Sig: Take 1 tablet by mouth once daily. Take one tablet 60 minutes prior to procedure. DU: No Patient last seen January 2022 Navya Zavala documented in this encounter [facility] [place] 03-09-2022 Evaluation + Plan note Future Scheduled TestsFecal WBC Lactoferrin 03/09/22Giardia lamblia, Direct Detection EIA 03/09/22O & P Exam, Routine 03/09/22Clostridium difficile by PCR 03/09/22Enteric Panel by PCR 03/09/22 [facility] 02-19-2022 Hospital Discharge instructions Patient Education [...] 08/07/2005 Document Revised: 02/26/2019 Document Reviewed: 02/26/2019 [employer] Patient Education 2020 mii. 02/19/2022 11:09:09 Diverticulosis MAGR (CUSTOM) Diverticulosis Many [...] unsweetened, w/added ascorbic acid 1 cup 0.5 [place] 1 cup 0.7 Vegetables Cooked Green beans 1 cup 4.0 Carrots 1/2 cup sliced 2.3 Peas 1 cup 8.8 Potato (baked, with skin) 1 medium potato 3.8 Raw Amanda (with peel) 1 cucumber 1.5 Lettuce 1 [...] 8.7 Peanuts 1/2 cup 7.9 Chart from [facility] 2013. SEEK IMMEDIATE MEDICAL CARE [...] of Agriculture (USDA) National Nutrient Database at: http://www.nal.usda.gov/fnic/foodcomp/ search/ Created using data from the USDA National Nutrient Database for Standard Reference. Available at http://www.[employer].usda.gov/fnic/foodcomp/ search/. Information adapted from: [facility] Patient Information 2009 [employer]. [employer] 2012 [email or web address]://[email or web address]/contents/diver iliushb-ofvzzdr-xsdxvw-the-basics Follow Up Care 02/07/2022 10:39:23 With:Jayson ADDISON Address: [address] [place] [address]. [address] [place] [address] Business (1) When: Unknown Comments:office will call for follow up [facility] 08-15-2018 History of Past i llness [...] incident. Plan: Post-pull repeat CXR ipending. Continue TERRAZZO TILE SETTER for pain related to catheter. Acute post-operative pain 08/12/20182017 Overview: History: post OHS Assessment: pain is well controlled with current regimen. Pt. requests TERRAZZO TILE SETTER continue. Does have itching when takes Oxycodone, but states all pain meds causes this for him (no rash noted) Plan: Continue current regimen with lidoderm patches, Tylenol, Oxycodone/Tramadol, and TERRAZZO TILE SETTER. Add Benadryl. Bowel regimen in place. Cardiac [...] Cardiac Surgical prep: N/A SIGNATURE: Belia Gardner APRN.POTTER OR CERAMIC ARTIST CHECKED BY: DATE of SERVICE: 08/11/2018 TIME of SERVICE: 5:09 PM Ascending aortic aneurysm 2017 Dilated aortic root 08/15/2018 documented as of this encounter (statuses as of 03/23/2022) [facility] [place] History of Past illness Narrative* Problem Noted [...] incident. Plan: Post-pull repeat CXR ipending. Continue TERRAZZO TILE SETTER for pain related to catheter. Acute post-operative pain 08/12/20182017 Overview: History: post OHS Assessment: pain is well controlled with current regimen. Pt. requests TERRAZZO TILE SETTER continue. Does have itching when takes Oxycodone, but states all pain meds causes this for him (no rash noted) Plan: Continue current regimen with lidoderm patches, Tylenol, Oxycodone/Tramadol, and TERRAZZO TILE SETTER. Add Benadryl. Bowel regimen in place. Cardiac [...] Cardiac Surgical prep: N/A SIGNATURE: Belia Gardner APRN.POTTER OR CERAMIC ARTIST CHECKED BY: DATE of SERVICE: 08/11/2018 TIME of SERVICE: 5:09 PM Ascending aortic aneurysm 2017 Dilated aortic root 08/15/2018 documented as of this encounter (statuses as of 03/28/2022) [facility] [place] History of Past illness Narrative* Problem Noted [...] incident. Plan: Post-pull repeat CXR ipending. Continue TERRAZZO TILE SETTER for pain related to catheter. Acute post-operative pain 08/12/20182017 Overview: History: post OHS Assessment: pain is well controlled with current regimen. Pt. requests TERRAZZO TILE SETTER continue. Does have itching when takes Oxycodone, but states all pain meds causes this for him (no rash noted) Plan: Continue current regimen with lidoderm patches, Tylenol, Oxycodone/Tramadol, and TERRAZZO TILE SETTER. Add Benadryl. Bowel regimen in place. Cardiac [...] Completed- document to be scanned PFT's: N/A 8/2/18 WBC 4.57 HB 13.3 HCT 41.9 PLT [...] Cardiac Surgical prep: N/A SIGNATURE: Belia Gardner APRN.POTTER OR CERAMIC ARTIST CHECKED BY: DATE of SERVICE: 08/11/2018 TIME of SERVICE: 5:09 PM Ascending aortic aneurysm 2017 Dilated aortic root 08/15/2018 documented as of this encounter (statuses as of 04/12/2022) [facility] [place] History of Past illness Narrative* Problem Noted [...] incident. Plan: Post-pull repeat CXR ipending. Continue TERRAZZO TILE SETTER for pain related to catheter. Acute post-operative pain 08/12/20182017 Overview: History: post OHS Assessment: pain is well controlled with current regimen. Pt. requests TERRAZZO TILE SETTER continue. Does have itching when takes Oxycodone, but states all pain meds causes this for him (no rash noted) Plan: Continue current regimen with lidoderm patches, Tylenol, Oxycodone/Tramadol, and TERRAZZO TILE SETTER. Add Benadryl. Bowel regimen in place. Cardiac [...] Cardiac Surgical prep: N/A SIGNATURE: Belia Gardner APRN.POTTER OR CERAMIC ARTIST CHECKED BY: DATE of SERVICE: 08/11/2018 TIME of SERVICE: 5:09 PM Ascending aortic aneurysm 2017 Dilated aortic root 08/15/2018 documented as of this encounter (statuses as of 08/10/2022) [facility] [place] History of Past illness Narrative* Problem Noted [...] incident. Plan: Post-pull repeat CXR ipending. Continue TERRAZZO TILE SETTER for pain related to catheter. Acute post-operative pain 08/12/20182017 Overview: History: post OHS Assessment: pain is well controlled with current regimen. Pt. requests TERRAZZO TILE SETTER continue. Does have itching when takes Oxycodone, but states all pain meds causes this for him (no rash noted) Plan: Continue current regimen with lidoderm patches, Tylenol, Oxycodone/Tramadol, and TERRAZZO TILE SETTER. Add Benadryl. Bowel regimen in place. Cardiac [...] of this encounter (statuses as of 08/15/2022) [facility] [place] History of Past illness Narrative* Problem Noted [...] incident. Plan: Post-pull repeat CXR ipending. Continue TERRAZZO TILE SETTER for pain related to catheter. Acute post-operative pain 08/12/20182017 Overview: History: post OHS Assessment: pain is well controlled with current regimen. Pt. requests TERRAZZO TILE SETTER continue. Does have itching when takes Oxycodone, but states all pain meds causes this for him (no rash noted) Plan: Continue current regimen with lidoderm patches, Tylenol, Oxycodone/Tramadol, and TERRAZZO TILE SETTER. Add Benadryl. Bowel regimen in place. Cardiac [...] of this encounter (statuses as of 10/15/2022) [facility] [place] History of Past illness Narrative* Problem Noted [...] incident. Plan: Post-pull repeat CXR ipending. Continue TERRAZZO TILE SETTER for pain related to catheter. Acute post-operative pain 08/12/20182017 Overview: History: post OHS Assessment: pain is well controlled with current regimen. Pt. requests TERRAZZO TILE SETTER continue. Does have itching when takes Oxycodone, but states all pain meds causes this for him (no rash noted) Plan: Continue current regimen with lidoderm patches, Tylenol, Oxycodone/Tramadol, and TERRAZZO TILE SETTER. Add Benadryl. Bowel regimen in place. Cardiac [...] of this encounter (statuses as of 11/12/2022) [facility] [place] History of Past illness Narrative* Problem Noted [...] incident. Plan: Post-pull repeat CXR ipending. Continue TERRAZZO TILE SETTER for pain related to catheter. Acute post-operative pain 08/12/20182017 Overview: History: post OHS Assessment: pain is well controlled with current regimen. Pt. requests TERRAZZO TILE SETTER continue. Does have itching when takes Oxycodone, but states all pain meds causes this for him (no rash noted) Plan: Continue current regimen with lidoderm patches, Tylenol, Oxycodone/Tramadol, and TERRAZZO TILE SETTER. Add Benadryl. Bowel regimen in place. Cardiac [...] of this encounter (statuses as of 12/27/2022) [facility] [place] History of Past illness Narrative* Problem Noted [...] incident. Plan: Post-pull repeat CXR ipending. Continue TERRAZZO TILE SETTER for pain related to catheter. Acute post-operative pain 08/12/20182017 Overview: History: post OHS Assessment: pain is well controlled with current regimen. Pt. requests TERRAZZO TILE SETTER continue. Does have itching when takes Oxycodone, but states all pain meds causes this for him (no rash noted) Plan: Continue current regimen with lidoderm patches, Tylenol, Oxycodone/Tramadol, and TERRAZZO TILE SETTER. Add Benadryl. Bowel regimen in place. Cardiac [...] Cardiac Surgical prep: N/A SIGNATURE: Belia Gardner APRN.POTTER OR CERAMIC ARTIST CHECKED BY: DATE of SERVICE: 08/11/2018 TIME of SERVICE: 5:09 PM Ascending aortic aneurysm 2017 Dilated aortic root 08/15/2018 documented as of this encounter (statuses as of 01/01/2023) [facility] [place] History of Past illness Narrative* Problem Noted [...] incident. Plan: Post-pull repeat CXR ipending. Continue TERRAZZO TILE SETTER for pain related to catheter. Acute post-operative pain 08/12/20182017 Overview: History: post OHS Assessment: pain is well controlled with current regimen. Pt. requests TERRAZZO TILE SETTER continue. Does have itching when takes Oxycodone, but states all pain meds causes this for him (no rash noted) Plan: Continue current regimen with lidoderm patches, Tylenol, Oxycodone/Tramadol, and TERRAZZO TILE SETTER. Add Benadryl. Bowel regimen in place. Cardiac [...] of this encounter (statuses as of 01/09/2023) [facility] History of Past illness Narrative* Problem Noted [...] incident. Plan: Post-pull repeat CXR ipending. Continue TERRAZZO TILE SETTER for pain related to catheter. Acute post-operative pain 08/12/20182017 Overview: History: post OHS Assessment: pain is well controlled with current regimen. Pt. requests TERRAZZO TILE SETTER continue. Does have itching when takes Oxycodone, but states all pain meds causes this for him (no rash noted) Plan: Continue current regimen with lidoderm patches, Tylenol, Oxycodone/Tramadol, and TERRAZZO TILE SETTER. Add Benadryl. Bowel regimen in place. Cardiac [...] Cardiac Surgical prep: N/A SIGNATURE: Belia Gardner APRN.POTTER OR CERAMIC ARTIST CHECKED BY: DATE of SERVICE: 08/11/2018 TIME of SERVICE: 5:09 PM Ascending aortic aneurysm 2017 Dilated aortic root 08/15/2018 documented as of this encounter (statuses as of 01/12/2023) [facility] [place] History of Past illness Narrative* Problem Noted [...] incident. Plan: Post-pull repeat CXR ipending. Continue TERRAZZO TILE SETTER for pain related to catheter. Acute post-operative pain 08/12/20182017 Overview: History: post OHS Assessment: pain is well controlled with current regimen. Pt. requests TERRAZZO TILE SETTER continue. Does have itching when takes Oxycodone, but states all pain meds causes this for him (no rash noted) Plan: Continue current regimen with lidoderm patches, Tylenol, Oxycodone/Tramadol, and TERRAZZO TILE SETTER. Add Benadryl. Bowel regimen in place. Cardiac [...] of this encounter (statuses as of 01/12/2023) [facility] [place] History of Past illness Narrative* Problem Noted [...] incident. Plan: Post-pull repeat CXR ipending. Continue TERRAZZO TILE SETTER for pain related to catheter. Acute post-operative pain 08/12/20182017 Overview: History: post OHS Assessment: pain is well controlled with current regimen. Pt. requests TERRAZZO TILE SETTER continue. Does have itching when takes Oxycodone, but states all pain meds causes this for him (no rash noted) Plan: Continue current regimen with lidoderm patches, Tylenol, Oxycodone/Tramadol, and TERRAZZO TILE SETTER. Add Benadryl. Bowel regimen in place. Cardiac [...] Cardiac Surgical prep: N/A SIGNATURE: Belia Gardner APRN.POTTER OR CERAMIC ARTIST CHECKED BY: DATE of SERVICE: 08/11/2018 TIME of SERVICE: 5:09 PM Ascending aortic aneurysm 2017 Dilated aortic root 08/15/2018 documented as of this encounter (statuses as of 02/06/2023) [facility] [place] History of Past illness Narrative* Problem Noted [...] incident. Plan: Post-pull repeat CXR ipending. Continue TERRAZZO TILE SETTER for pain related to catheter. Acute post-operative pain 08/12/20182017 Overview: History: post OHS Assessment: pain is well controlled with current regimen. Pt. requests TERRAZZO TILE SETTER continue. Does have itching when takes Oxycodone, but states all pain meds causes this for him (no rash noted) Plan: Continue current regimen with lidoderm patches, Tylenol, Oxycodone/Tramadol, and TERRAZZO TILE SETTER. Add Benadryl. Bowel regimen in place. Cardiac [...] Cardiac Surgical prep: N/A SIGNATURE: Belia Gardner APRN.POTTER OR CERAMIC ARTIST CHECKED BY: DATE of SERVICE: 08/11/2018 TIME of SERVICE: 5:09 PM Ascending aortic aneurysm 2017 Dilated aortic root 08/15/2018 documented as of this encounter (statuses as of 02/07/2023) [facility] [place] History of Past illness Narrative* Problem Noted [...] incident. Plan: Post-pull repeat CXR ipending. Continue TERRAZZO TILE SETTER for pain related to catheter. Acute post-operative pain 08/12/20182017 Overview: History: post OHS Assessment: pain is well controlled with current regimen. Pt. requests TERRAZZO TILE SETTER continue. Does have itching when takes Oxycodone, but states all pain meds causes this for him (no rash noted) Plan: Continue current regimen with lidoderm patches, Tylenol, Oxycodone/Tramadol, and TERRAZZO TILE SETTER. Add Benadryl. Bowel regimen in place. Cardiac [...] of this encounter (statuses as of 02/12/2023) [facility] History of Past illness Narrative* Problem Noted [...] incident. Plan: Post-pull repeat CXR ipending. Continue TERRAZZO TILE SETTER for pain related to catheter. Acute post-operative pain 08/12/20182017 Overview: History: post OHS Assessment: pain is well controlled with current regimen. Pt. requests TERRAZZO TILE SETTER continue. Does have itching when takes Oxycodone, but states all pain meds causes this for him (no rash noted) Plan: Continue current regimen with lidoderm patches, Tylenol, Oxycodone/Tramadol, and TERRAZZO TILE SETTER. Add Benadryl. Bowel regimen in place. Cardiac [...] Cardiac Surgical prep: N/A SIGNATURE: Belia Gardner APRN.POTTER OR CERAMIC ARTIST CHECKED BY: DATE of SERVICE: 08/11/2018 TIME of SERVICE: 5:09 PM Ascending aortic aneurysm 2017 Dilated aortic root 08/15/2018 documented as of this encounter (statuses as of 03/13/2023) [facility] [place] History of Past illness Narrative* Problem Noted [...] incident. Plan: Post-pull repeat CXR ipending. Continue TERRAZZO TILE SETTER for pain related to catheter. Acute post-operative pain 08/12/2018 Overview: History: post OHS Assessment: pain is well controlled with current regimen. Pt. requests TERRAZZO TILE SETTER continue. Does have itching when takes Oxycodone, but states all pain meds causes this for him (no rash noted) Plan: Continue current regimen with lidoderm patches, Tylenol, Oxycodone/Tramadol, and TERRAZZO TILE SETTER. Add Benadryl. Bowel regimen in place. Cardiac [...] Cardiac Surgical prep: N/A SIGNATURE: Belia Gardner APRN.POTTER OR CERAMIC ARTIST CHECKED BY: DATE of SERVICE: 08/11/2018 TIME of SERVICE: 5:09 PM Ascending aortic aneurysm Dilated aortic root 08/15/20 18 documented as of this encounter (statuses as of 06/05/2023) [facility] [place] History of Past illness Narrative* Problem Noted [...] incident. Plan: Post-pull repeat CXR ipending. Continue TERRAZZO TILE SETTER for pain related to catheter. Acute post-operative pain 08/12/2018 Overview: History: post OHS Assessment: pain is well controlled with current regimen. Pt. requests TERRAZZO TILE SETTER continue. Does have itching when takes Oxycodone, but states all pain meds causes this for him (no rash noted) Plan: Continue current regimen with lidoderm patches, Tylenol, Oxycodone/Tramadol, and TERRAZZO TILE SETTER. Add Benadryl. Bowel regimen in place. Cardiac [...] Cardiac Surgical prep: N/A SIGNATURE: Belia Gardner APRN.POTTER OR CERAMIC ARTIST CHECKED BY: DATE of SERVICE: 08/11/2018 TIME of SERVICE: 5:09 PM Ascending aortic aneurysm Dilated aortic root 08/15/20 18 documented as of this encounter (statuses as of 07/08/2023) [facility] History of Past illness Narrative* Problem Noted [...] incident. Plan: Post-pull repeat CXR ipending. Continue TERRAZZO TILE SETTER for pain related to catheter. Acute post-operative pain 08/12/2018 Overview: History: post OHS Assessment: pain is well controlled with current regimen. Pt. requests TERRAZZO TILE SETTER continue. Does have itching when takes Oxycodone, but states all pain meds causes this for him (no rash noted) Plan: Continue current regimen with lidoderm patches, Tylenol, Oxycodone/Tramadol, and TERRAZZO TILE SETTER. Add Benadryl. Bowel regimen in place. Cardiac [...] Cardiac Surgical prep: N/A SIGNATURE: Belia Gardner APRN.POTTER OR CERAMIC ARTIST CHECKED BY: DATE of SERVICE: 08/11/2018 TIME of SERVICE: 5:09 PM Ascending aortic aneurysm Dilated aortic root 08/15/20 18 documented as of this encounter (statuses as of 07/15/2023) [facility] History of Past illness Narrative* Problem Noted [...] incident. Plan: Post-pull repeat CXR ipending. Continue TERRAZZO TILE SETTER for pain related to catheter. Acute post-operative pain 08/12/2018 Overview: History: post OHS Assessment: pain is well controlled with current regimen. Pt. requests TERRAZZO TILE SETTER continue. Does have itching when takes Oxycodone, but states all pain meds causes this for him (no rash noted) Plan: Continue current regimen with lidoderm patches, Tylenol, Oxycodone/Tramadol, and TERRAZZO TILE SETTER. Add Benadryl. Bowel regimen in place. Cardiac [...] Cardiac Surgical prep: N/A SIGNATURE: Belia Gardner APRN.POTTER OR CERAMIC ARTIST CHECKED BY: DATE of SERVICE: 08/11/2018 TIME of SERVICE: 5:09 PM Ascending aortic aneurysm Dilated aortic root 08/15/20 18 documented as of this encounter (statuses as of 08/13/2023) [facility] History of Past illness Narrative* Problem Noted [...] incident. Plan: Post-pull repeat CXR ipending. Continue TERRAZZO TILE SETTER for pain related to catheter. Acute post-operative pain 08/12/2018 Overview: History: post OHS Assessment: pain is well controlled with current regimen. Pt. requests TERRAZZO TILE SETTER continue. Does have itching when takes Oxycodone, but states all pain meds causes this for him (no rash noted) Plan: Continue current regimen with lidoderm patches, Tylenol, Oxycodone/Tramadol, and TERRAZZO TILE SETTER. Add Benadryl. Bowel regimen in place. Cardiac [...] of this encounter (statuses as of 08/19/2023) [facility]09[facility]2018 History of Past illness Narrative* Problem Noted [...] incident. Plan: Post-pull repeat CXR ipending. Continue TERRAZZO TILE SETTER for pain related to catheter. Acute post-operative pain 08/12/2018 Overview: History: post OHS Assessment: pain is well controlled with current regimen. Pt. requests TERRAZZO TILE SETTER continue. Does have itching when takes Oxycodone, but states all pain meds causes this for him (no rash noted) Plan: Continue current regimen with lidoderm patches, Tylenol, Oxycodone/Tramadol, and TERRAZZO TILE SETTER. Add Benadryl. Bowel regimen in place. Cardiac [...] of this encounter (statuses as of 11/13/2023) [facility]2018 History of Past illness Narrative* Problem Noted [...] incident. Plan: Post-pull repeat CXR ipending. Continue TERRAZZO TILE SETTER for pain related to catheter. Acute post-operative pain 08/12/2018 Overview: History: post OHS Assessment: pain is well controlled with current regimen. Pt. requests TERRAZZO TILE SETTER continue. Does have itching when takes Oxycodone, but states all pain meds causes this for him (no rash noted) Plan: Continue current regimen with lidoderm patches, Tylenol, Oxycodone/Tramadol, and TERRAZZO TILE SETTER. Add Benadryl. Bowel regimen in place. Cardiac [...] Cardiac Surgical prep: N/A SIGNATURE: Belia Gardner APRN.POTTER OR CERAMIC ARTIST CHECKED BY: DATE of SERVICE: 08/11/2018 TIME of SERVICE: 5:09 PM Ascending aortic aneurysm Dilated aortic root 08/15/20 18 documented as of this encounter (statuses as of 02/11/2024) [facility] No data available for this section [facility] Future Appointments Appointment Date:03/29/2023 08:30:00 AM Scheduled Provider: Location:[place]ICAL [place] Appointment Type:PT [place] 45 (FT) Appointment Date:04/02/2023 02:15:00 PM Scheduled Provider: Location:[place] Appointment Type:PT [place] 45 (FT) Appointment Date:04/05/2023 11:30:00 AM Scheduled Provider: Location:.[place]ICAL [place] Appointment Type:PT [place] 45 (FT) Appointment Date:04/09/2023 11:30:00 AM Scheduled Provider: Location:[place] Appointment Type:PT [place] 45 (FT) Appointment Date:04/12/2023 08:30:00 AM Scheduled Provider: Location:.[place] Appointment Type:PT Re-Eval 30 ([facility]) [facility] Diagnosis Precordial pain- Primary [facility] Precordial pain [facility]* Diagnosis S/P AVR- Primary Heart valve replaced by other means Essential (primary) hypertension Unspecified essential hypertension documented in this encounter [facility]* Diagnosis Essential hypertension Unspecified essential hypertension documented in this encounter [facility]* Diagnosis Essential hypertension Unspecified essential hypertension documented in this encounter [facility]* Diagnosis Chest pain, unspecified type- Primary documented in this encounter [facility]* Diagnosis S/P AVR- Primary Heart valve replaced by other means Essential hypertension Unspecified essential hypertension Chest discomfort Other chest pain documented in this encounter [facility]* Diagnosis Physical deconditioning- Primary Debility, unspecified Elevated serum creatinine Other nonspecific findings on examination of blood S/P AVR Heart valve replaced by other means documented in this encounter [facility]* Diagnosis Elevated serum creatinine- Primary Other [...] Dizziness and giddiness documented in this encounter [facility]* Diagnosis S/P AVR- Primary Heart valve [...] Other specified counseling documented in this encounter [facility]* Diagnosis Hyperlipidemia, unspecified hyperlipidemia type- Primary S/P ascending aortic replacement Blood vessel replaced by other means Nonrheumatic aortic valve insufficiency Aortic valve disorders documented in this encounter [facility]* Diagnosis S/P right rotator cuff repair- Primary Traumatic complete tear of right rotator cuff, initial encounter documented in this encounter [facility]* Diagnosis Essential hypertension Unspecified essential hypertension documented in this encounter [facility]* Diagnosis Hyperlipidemia, unspecified hyperlipidemia type- Primary Essential hypertension Unspecified essential hypertension S/P AVR Heart valve replaced by other means documented in this encounter [facility]* Diagnosis Essential hypertension Unspecified essential hypertension [facility] Diagnosis Hyperlipidemia, unspecified hyperlipidemia type- Primary Essential hypertension Unspecified essential hypertension S/P AVR Heart valve replaced by other means documented in this encounter [facility] Discharge instructions No data available for this section [facility] No data available for this section [facility] ([facility]ative)* Diagnostic Procedure Only (Routine) - Pending Review Specialty Diagnoses / Procedures Referred By Sashaac t Referred To Contact [facility] Diagnoses Precordial pain Procedures NM CARDIAC PERF STRESS/EXERCISE MYOCARDIAL SPECT MULTIPLE STUDIES Todd Nunn MD [address] [place] [address] Molecular & Functional Imaging [address] [place] [address] Referral ID Status Reason Start Date Expiration Date Visits Requested Visits Authorized [id number] Pending Review Auto-Generat ed Referral 04/11/2022 04/26/2023 1 1 [facility] for referral (narrative)* Diagnostic Procedure Only (Routine) - Closed Specialty Diagnoses / Procedures Referred By Darnell collins Referred To Contact [facility] Diagnoses Precordial pain Procedures NM CARDIAC PERF STRESS/EXERCISE MYOCARDIAL SPECT MULTIPLE STUDIES Todd Nunn MD [address] [place] [address] Molecular [facility] Functional Imaging [address] [place] [address] Referral ID Status Reason Start Date Expiration Date V isits Requested Visits Authorized [id number] Closed Auto-Generate d Referral 04/11/2022 04/26/2023 1 1 [facility] for referral (narrative)* Outpatient Procedure (Routine) - Authorized Specialty Diagnoses / Procedures Referred By Contac t Referred To Contact [facility] Diagnoses S/P AVR Procedures ECHO ECHO TTHRC R-T 2D W/WOM-MODE COMPL SPEC&COLR D Juan F Portillo MD [address] [place] [address] [address] Referral ID Status Reason Start Date Expiration Date Visits Requested Visits Authorized [id number] Authorized Auto-Generat ed Referral 08/15/2022 08/15/2023 1 1 [facility] for referral (narrative)* Diagnostic Procedure Only (Routine) - Authorized Specialty Diagnoses / Procedures Referred By Darnell t Referred To Contact [facility] Diagnoses Chest pain, unspecified type Procedures NM CARDIAC PERF STRESS/PHARM MYOCARDIAL [place] [address] [place] [address] Molecular & Functional Imaging [address] [place] [id number] Referral ID Status Reason Start Date Expiration Date Visits Requested Visits Authorized [id number] Authorized Auto-Generat ed Referral 01/08/2023 02/06/2024 1 1 [facility] for referral (narrative)* Outpatient Procedure (Routine) - Authorized Specialty Diagnoses / Procedures [facility] To Contact [facility] Diagnoses Chest pain, unspecified type Procedures ECG COMPLETE ECG ROUTINE ECG W/LEAST 12 LDS W/I&R Juan F Portillo MD [address] [place] [address] [address] Referral ID Status Reason Start Date Expiration Date Visits Requested Visits Authorized [id number] Authorized Auto-Generat ed Referral 01/08/2023 01/08/2024 1 1 [facility] ([facility])* Outpatient Procedure (Routine) - Pending Review Specialty Diagnoses / Procedures Referred By Contac t Referred To Contact [facility] [place] Diagnoses S/P ascending aortic replacement Nonrheumatic aortic valve insufficiency Procedures ECHO ECHO TTHRC R-T 2D W/WOM-MODE COMPL SPEC&COLR D Clarises Gee APRN.CNP [address] [place] [address] [facility] [address] [place] [address] Referral ID Status Reason Start Date Expiration Date Visits Requested Visits Authorized [id number] Pending Review Auto-Generat ed Referral 03/13/2023 03/12/2024 1 1 [facility] Advance Directives No Advanced Directives Records FoundDocuments on File Type Date Recorded Patient Habilitation Assistant Expl anation Advance Directive(s) 08/11/2018 5:53 PM Advance Directive(s) 08/11/2018 5:51 PM Advance Directive(s) 06/02/2018 6:58 AM Documents on File Type Date Recorded Patient Habilitation Assistant Expl anation Advance Directive(s) 08/11/2018 5:53 PM Advance Directive(s) 08/11/2018 5:51 PM Advance Directive(s) 06/02/2018 6:58 AM Documents on File Type Date Recorded Patient Habilitation Assistant Expl anation Advance Directive(s) 08/11/2018 5:51 PM Documents on File Type Date Recorded Patient Habilitation Assistant Expl anation Advance Directive(s) 08/11/2018 5:51 PM Reason for Referral Specialty Diagnoses / Procedures Referred By Contac t Referred To Contact [facility] [address] [place] Procedures CARDIOVASCULAR MEDICINE OP FOLLOW UP APPT Abeba Harrell APRN.POTTER OR CERAMIC ARTIST [address] [place] [address] [facility] [address] [place] [address] Referral ID Status Reason Start Date Expiration Date Visits Requested Visits Authorized [id number] Ref Not Required PCP Requested Referral 08/13/2024 02/10/2025 1 1 Specialty Diagnoses / Procedures Referred By Contac t Referred To Contact [facility] Diagnoses S/P right rotator cuff repair Traumatic complete tear of right rotator cuff, initial encounter Procedures CONSULT TO PHYSICAL THERAPY PHYSICAL THERAPY EVALUATION HIGH COMPLEX 45 MINS Reji Weems MD [address] [place] [address] [facility] [address] [place] [id number] Referral ID Status Reason Start Date Expiration Date Visits Requested Visits Authorized [id number] Authorized PCP Requested Referral Auto-Generate d Referral 07/08/2023 07/07/2024 99 99 Specialty Diagnoses / Procedures Referred By Contac t Referred To Contact Diagnoses Physical deconditioning Procedures CARD PREV EXERCISE PRESCRIPTION OFFICE/OUTPATIENT [facility] MDM 60-74 MINUTES Juan F Portillo MD [address] [place] [address] Referral ID Status Reason Start Date Expiration Date Visits Requested Visits Authorized [id number] Authorized PCP Requested Referral 02/06/2023 02/06/2024 1 1 Medications Administered Section Inactive Administered Medications - [...] 11:02 AM EDT 80 mg Shoulder, Right Summary Purpose Family History No Family History Records Found No data available for this section No Family History Records Found Additional Source Comments Source Comments (unrecognize d section and content) In the event this informatio n is protected by the Federal Confidentiality of Alcohol and Drug Abuse Patient Records regulations: The Federal rules restrict any use of the information to criminally investigate or prosecute any alcohol or drug abuse patient.[facility] the event this information is protected by the Federal Confidentiality of Alcohol and Drug Abuse Patient Records regulations: The Federal rules restrict any use of the information to criminally investigate or prosecute any alcohol or drug abuse patient.[facility] the event this information is protected by the Federal Confidentiality of Alcohol and Drug Abuse Patient Records regulations: The Federal rules restrict any use of the information to criminally investigate or prosecute any alcohol or drug abuse patient.[facility] the event this information is protected by the Federal Confidentiality of Alcohol and Drug Abuse Patient Records regulations: The Federal rules restrict any use of the information to criminally investigate or prosecute any alcohol or drug abuse patient.[facility] the event this information is protected by the Federal Confidentiality of Alcohol and Drug Abuse Patient Records regulations: The Federal rules restrict any use of the information to criminally investigate or prosecute any alcohol or drug abuse patient.[facility] the event this information is protected by the Federal Confidentiality of Alcohol and Drug Abuse Patient Records regulations: The Federal rules restrict any use of the information to criminally investigate or prosecute any alcohol or drug abuse patient.[facility] the event this information is protected by the Federal Confidentiality of Alcohol and Drug Abuse Patient Records regulations: The Federal rules restrict any use of the information to criminally investigate or prosecute any alcohol or drug abuse patient.[facility] the event this information is protected by the Federal Confidentiality of Alcohol and Drug Abuse Patient Records regulations: The Federal rules restrict any use of the information to criminally investigate or prosecute any alcohol or drug abuse patient.[facility] the event this information is protected by the Federal Confidentiality of Alcohol and Drug Abuse Patient Records regulations: The Federal rules restrict any use of the information to criminally investigate or prosecute any alcohol or drug abuse patient.[facility] the event this information is protected by the Federal Confidentiality of Alcohol and Drug Abuse Patient Records regulations: The Federal rules restrict any use of the information to criminally investigate or prosecute any alcohol or drug abuse patient.[facility] the event this information is protected by the Federal Confidentiality of Alcohol and Drug Abuse Patient Records regulations: The Federal rules restrict any use of the information to criminally investigate or prosecute any alcohol or drug abuse patient.[facility] the event this information is protected by the Federal Confidentiality of Alcohol and Drug Abuse Patient Records regulations: The Federal rules restrict any use of the information to criminally investigate or prosecute any alcohol or drug abuse patient.[facility] the event this information is protected by the Federal Confidentiality of Alcohol and Drug Abuse Patient Records regulations: The Federal rules restrict any use of the information to criminally investigate or prosecute any alcohol or drug abuse patient.[facility] [place] the event this information is protected by the Federal Confidentiality of Alcohol and Drug Abuse Patient Records regulations: The Federal rules restrict any use of the information to criminally investigate or prosecute any alcohol or drug abuse patient.[facility] the event this information is protected by the Federal Confidentiality of Alcohol and Drug Abuse Patient Records regulations: The Federal rules restrict any use of the information to criminally investigate or prosecute any alcohol or drug abuse patient.[facility] the event this information is protected by the Federal Confidentiality of Alcohol and Drug Abuse Patient Records regulations: The Federal rules restrict any use of the information to criminally investigate or prosecute any alcohol or drug abuse patient.[facility] the event this information is protected by the Federal Confidentiality of Alcohol and Drug Abuse Patient Records regulations: The Federal rules restrict any use of the information to criminally investigate or prosecute any alcohol or drug abuse patient.[facility] [place] the event this information is protected by the Federal Confidentiality of Alcohol and Drug Abuse Patient Records regulations: The Federal rules restrict any use of the information to criminally investigate or prosecute any alcohol or drug abuse patient.[facility] the event this information is protected by the Federal Confidentiality of Alcohol and Drug Abuse Patient Records regulations: The Federal rules restrict any use of the information to criminally investigate or prosecute any alcohol or drug abuse patient.[facility] the event this information is protected by the Federal Confidentiality of Alcohol and Drug Abuse Patient Records regulations: The Federal rules restrict any use of the information to criminally investigate or prosecute any alcohol or drug abuse patient.[facility] [place] the event this information is protected by the Federal Confidentiality of Alcohol and Drug Abuse Patient Records regulations: The Federal rules restrict any use of the information to criminally investigate or prosecute any alcohol or drug abuse patient.[facility] [place] the event this information is protected by the Federal Confidentiality of Alcohol and Drug Abuse Patient Records regulations: The Federal rules restrict any use of the information to criminally investigate or prosecute any alcohol or drug abuse patient.[facility] [place] the event this information is protected by the Federal Confidentiality of Alcohol and Drug Abuse Patient Records regulations: The Federal rules restrict any use of the information to criminally investigate or prosecute any alcohol or drug abuse patient.[facility] [place] the event this information is protected by the Federal Confidentiality of Alcohol and Drug Abuse Patient Records regulations: The Federal rules restrict any use of the information to criminally investigate or prosecute any alcohol or drug abuse patient.[facility] [place] the event this information is protected by the Federal Confidentiality of Alcohol and Drug Abuse Patient Records regulations: The Federal rules restrict any use of the information to criminally investigate or prosecute any alcohol or drug abuse patient.[facility] Reason for Visit (unrecogniz ed section and content) Reason Onset Date Comments Refill Request 03/20/2022 Reason Comments Radiology NM Specialty Diagnoses / Procedures Referred By Contac t Referred To Contact [facility]LECULAR [facility] FUNCTIONAL IMAGING Diagnoses Precordial pain Procedures NM CARDIAC PERF STRESS/EXERCISE MYOCARDIAL SPECT MULTIPLE STUDIES Todd Nunn MD [address] [place] [address] Molecular & Functional Imaging [address] [place] [address] Referral ID Status Reason Start Date Expiration Date V isits Requested Visits Authorized [id number] Closed Auto-Generate d Referral 04/11/2022 04/26/2023 1 [...] MYOCARDIAL SPECT MULTIPLE STUDIES Todd Nunn MD [address] [place] [address] Molecular [facility] Functional Imaging [address] [place] [address] Referral ID Status Reason Start Date Expiration Date V isits Requested Visits Authorized [id number] Closed Auto-Generate d Referral 01/08/2023 02/06/2024 1 1 Reason Comments Follow Up Reason Comments Exercise Prescription Specialty Diagnoses / Procedures Referred By Contac t Referred To Contact Diagnoses Physical deconditioning Procedures CARD PREV EXERCISE PRESCRIPTION OFFICE/OUTPATIENT NEW HIGH MDM 60-74 MINUTES Juan F Portillo MD [address] [place] [address] Referral ID Status Reason Start Date Expiration Date V isits Requested Visits Authorized [id number] Closed PCP Requested Referral 02/06/2023 02/06/2024 1 1 Reason Comments Patient Question Any additional testi ng? Reason Comments Medication Question Reason Comments New Pain Numbness Reason Onset Date Comments Refill Request 07/15/2023 Reason Comments Hyperlipidemia Reason Onset Date Comments Refill Request 11/11/2023 Reason Comments Hyperlipidemia Reason Comments Patient Question Care Teams (unrecognized sec tion and content) Plate Stacker Hand Relationship Specialty Start Date End Date Onel Isaacs MD [address] [place] [address] PCP - General 03/07/01 Kenyatta Dumont Referring Cardiology 05/29/18 Juan F Portillo MD Primary Staff Physician Cardiology 05/10/20 Plate Stacker Hand Relationship Specialty Start Date End Date Onel Isaacs MD [address] [place] [address] PCP - General 03/07/01 Kenyatta Dumont Referring Cardiology 05/29/18 Juan F Portillo MD Primary Staff Physician Cardiology 05/10/20 Plate Stacker Hand Relationship Specialty Start Date End Date Onel Isaacs MD [address] [facility] [place] [address] PCP - General 03/07/01 Kenyatta Dumont Referring Cardiology 05/29/18 Juan F Portillo MD Primary Staff Physician Cardiology 05/10/20 Plate Stacker Hand Relationship Specialty Start Date End Date Onel Isaacs MD [address] [facility] [place] [address] PCP - General 03/07/01 Kenyatta Dumont Referring Cardiology 05/29/18 Juan F Portillo MD Primary Staff Physician Cardiology 05/10/20 Plate Stacker Hand Relationship Specialty Start Date End Date Onel Isaacs MD [address] [facility] [place] [address] PCP - General 03/07/01 Kenyatta Dumont Referring Cardiology 05/29/18 Juan F Portillo MD Primary Staff Physician Cardiology 05/10/20 Plate Stacker Hand Relationship Specialty Start Date End Date Onel Isaacs MD [address] [facility] [place] [address] PCP - General 03/07/01 Kenyatta Dumont [address] [facility] [place] [address] Referring Cardiology 05/29/18 Juan F Portillo MD [address] [facility] [place] [address] Primary Staff Physician Cardiology 05/10/20 Plate Stacker Hand Relationship Specialty Start Date End Date Onel Isaacs MD [address] [place] [place] [address] PCP - General 03/07/01 Rayray Dumonttham [address] [place] [address] Referring Cardiology 05/29/18 Juan F Portillo MD [address] [place] [address] Primary Staff Physician Cardiology 05/10/20 Plate Stacker Hand Relationship Specialty Start Date End Date Onel Isaacs MD [address] [facility] [place] [address] PCP - General 03/07/01 Rayray Dumontam [address] [place] [address] Referring Cardiology 05/29/18 Juan F Portillo MD [address] [place] [address] Primary Staff Physician Cardiology 05/10/20 Plate Stacker Hand Relationship Specialty Start Date End Date Onel Isaacs MD [address] [place] [address] PCP - General 03/07/01 Rayray Dumonttham [address] [place] [address] Referring Cardiology 05/29/18 Juan F Portillo MD [address] [place] [address] Primary Staff Physician Cardiology 05/10/20 Plate Stacker Hand Relationship Specialty Start Date End Date Onel Isaacs MD [address] [place] [address] PCP - General 03/07/01 Garciagilma Rayraytham [address] [place] [address] Referring Cardiology 05/29/18 Juan F Portillo MD [address] [place] [address] Primary Staff Physician Cardiology 05/10/20 Onel Isaacs MD [address] [place] [address] Referring Family Medicine 01/08/23 Plate Stacker Hand Relationship Specialty Start Date End Date Onel Isaacs MD [address] [place] [address] PCP - General 03/07/01 Jenna Dumontam [address] [place] [address] Referring Cardiology 05/29/18 Juan F Portillo MD [address] [place] [address] Primary Staff Physician Cardiology 05/10/20 Onel Isaacs MD [address] [place] [address] Referring Family Medicine 01/08/23 Plate Stacker Hand Relationship Specialty Start Date End Date Onel Isaacs MD [address] [place] [address] PCP - General 03/07/01 Tim Rayraytham [address] [place] [address] Referring Cardiology 05/29/18 Juan F Portillo MD [address] [place] [address] Primary Staff Physician Cardiology 05/10/20 Onel Isaacs MD [address] [facility] [place] [address] Referring Family Medicine 01/08/23 Plate Stacker Hand Relationship Specialty Start Date End Date Onel Isaacs MD [address] [facility] [place] [address] PCP - General 03/07/01 Jenna Dumontam [address] [facility] [place] [address] Referring Cardiology 05/29/18 Juan F Portillo MD [address] [facility] [place] [address] Primary Staff Physician Cardiology 05/10/20 Onel Isaacs MD [address] [facility] [place] [address] Referring Family Medicine 01/08/23 Plate Stacker Hand Relationship Specialty Start Date End Date Onel Isaacs MD [address] [facility] [place] [address] PCP - General 03/07/01 Tim Rayraymatt [address] [facility] [place] [address] Referring Cardiology 05/29/18 Juan F Portillo MD [address] [facility] [place] [address] Primary Staff Physician Cardiology 05/10/20 Onel Isaacs MD [address] [facility] [place] [address] Referring Family Medicine 01/08/23 Plate Stacker Hand Relationship Specialty Start Date End Date Onel Isaacs MD [address] [facility] [place] [address] PCP - General 03/07/01 Kenyatta Dumont [address] [facility] [place] [address] Referring Cardiology 05/29/18 Juan F Portillo MD [address] [facility] [place] [address] Primary Staff Physician Cardiology 05/10/20 Onel Isaacs MD [address] [facility] [place] [address] Referring Family Medicine 01/08/23 Plate Stacker Hand Relationship Specialty Start Date End Date Onel Isaacs MD [address] [facility] [place] [address] PCP - General 03/07/01 Kenyatta Dumont [address] [facility] [place] [address] Referring Cardiology 05/29/18 Juan F Portillo MD [address] [facility] [place] [address] Primary Staff Physician Cardiology 05/10/20 Onel Isaacs MD [address] [facility] [place] [address] Referring Family Medicine 01/08/23 Plate Stacker Hand Relationship Specialty Start Date End Date Onel Isaacs MD [address] [facility] [place] [address] PCP - General 03/07/01 Kenyatta Dumont [address] [place] [address] Referring Cardiology 05/29/18 Juan F Portillo MD [address] [facility] [place] [address] Primary Staff Physician Cardiology 05/10/20 Onel Isaacs MD [address] [place] [address] Referring Family Medicine 01/08/23 Plate Stacker Hand Relationship Specialty Start Date End Date Onel Isaacs MD [address] [facility] [place] [address] PCP - General 03/07/01 Kenyatta Dumont [address] [facility] [place] [address] Referring Cardiology 05/29/18 Juan F Portillo MD [address] [facility] [place] [address] Primary Staff Physician Cardiology 05/10/20 Onel Isaacs MD [address] [facility] [place] [address] Referring Family Medicine 01/08/23 Onel Isaacs MD [address] [place] [address] Referring Family Medicine 06/19/23 Plate Stacker Hand Relationship Specialty Start Date End Date Onel Isaacs MD [address] [place] [address] PCP - General 03/07/01 Kenyatta Dumont [address] [place] [address] Referring Cardiology 05/29/18 Juan F Portillo MD [address] [place] [address] Primary Staff Physician Cardiology 05/10/20 Onel Isaacs MD [address] [facility] [place] [address] Referring Family Medicine 01/08/23 Onel Isaacs MD [address] [facility] [place] [address] Referring Family Medicine 06/19/23 Plate Stacker Hand Relationship Specialty Start Date End Date Onel Isaacs MD [address] [facility] [place] [address] PCP - General 03/07/01 Kenyatta Dumont [address] [place] [address] Referring Cardiology 05/29/18 Juan F Portillo MD [address] [place] [address] Primary Staff Physician Cardiology 05/10/20 Onel Isaacs MD [address] [place] [facility] [place] [address] Referring Family Medicine 01/08/23 Onel Isaacs MD [address] [place] [facility] [place] [address] Referring Family Medicine 06/19/23 Plate Stacker Hand Relationship Specialty Start Date End Date Onel Isaacs MD [address] [place] [facility] [place] [address] PCP - General 03/07/01 Kenyatta Dumont [address] [place] [facility] [place] [address] Referring Cardiology 05/29/18 Juan F Portillo MD [address] [place] [facility] [place] [address] Primary Staff Physician Cardiology 05/10/20 Onel Isaacs MD [address] [place] [facility] [place] [address] Referring Family Medicine 01/08/23 Onel Isaacs MD [address] [place] [facility] [place] [address] Referring Family Medicine 06/19/23 Plate Stacker Hand Relationship Specialty Start Date End Date Onel Isaacs MD [address] [place] [facility] [place] [address] PCP - General 03/07/01 Kenyatta Dumont [address] [place] [facility] [place] [address] Referring Cardiology 05/29/18 Juan F Portillo MD [address] [facility] [place] [address] Primary Staff Physician Cardiology 05/10/20 Onel Isaacs MD [address] [facility] [place] [address] Referring Family Medicine 01/08/23 Onel Isaacs MD [address] [facility] [place] [address] Referring Family Medicine 06/19/23 Plate Stacker Hand Relationship Specialty Start Date End Date Onel Isaacs MD [address] [facility] [place] [address] PCP - General 03/07/01 Kenyatta Dumont [address] [facility] [place] [address] Referring Cardiology 05/29/18 Juan F Portillo MD [address] [facility] [place] [address] Primary Staff Physician Cardiology 05/10/20 Onel Isaacs MD [address] [place] [address] Referring Family Medicine 01/08/23 Onel Isaacs MD [address] [place] [address] Referring Family Medicine 06/19/23 Plate Stacker Hand Relationship Specialty Start Date End Date Onel Isaacs MD [address] [facility] [place] [address] PCP - General 03/07/01 Kenyatta Dumont [address] [facility] [place] [address] Referring Cardiology 05/29/18 Juan F Portillo MD [address] [facility] [place] [address] Primary Staff Physician Cardiology 05/10/20 Onel Isaacs MD [address] [facility] [place] [address] Referring Family Medicine 01/08/23 Onel Isaacs MD [facility] [facility] [place] [address] Referring Family Medicine 06/19/23 (unrecognized sect ion and content) No Status Records FoundNo Status Records Found INFORMATION SOURCE (unrecogn ized section and content) DATE CREATED AUTHOR 05/28/2024 [facility] DATE CREATED AUTHOR AUTHOR'S ORGANIZ ATION 08/16/2024 [facility] FOR RECORDS PERTAINING TO PATIENTS WHO [...] BE BASED ON THE PRIMARY CLINICAL RECORDS. [employer] provides no warranty or guarantee of the accuracy or completeness of information in this document.
[2024-09-11 16:09] LABS: Basophils Percent Auto 0.2 % (0.2-2.0); Eosinophils Absolute Auto 0.1 10^3/uL (0.0-0.7); Hematocrit 40.1 % (42.0-54.0); Hemoglobin 12.4 g/dL (14.0-18.0); Immature Granulocytes Abs Auto 0.01 10^3/uL (0.00-0.03); Immature Granulocytes Pct Auto 0.2 % (0.0-0.5); Lymphocytes Absolute Auto 2.2 10^3/uL (1.2-3.8); Lymphocytes Percent Auto 43.1 % (20.5-60.0); Mean Corpuscular HGB Conc 30.9 g/dL (29.9-35.2); Mean Corpuscular Hemoglobin 25.7 pg (25.9-34.0); Mean Platelet Volume 10.4 fL (9.5-13.5); Monocytes Absolute Auto 0.4 10^3/uL (0.3-0.8); Monocytes Percent Auto 7.8 % (1.7-12.0); Neutrophils Absolute Auto 2.4 10^3/uL (1.4-6.5); Neutrophils Percent Auto 47.7 % (43.0-75.0); Platelet Count 158 10^3/uL (150-450); Red Blood Count 4.83 10^6/uL (4.70-6.10); Red Cell Distribution Width 14.7 % (11.0-15.0)
[2024-09-11 16:16] LABS: Estimated Average Glucose 108 mg/dL; Glycohemoglobin A1C 5.4 % (4.5-6.2)
[2024-09-11 16:38] LABS: Alanine Aminotransferase 21 U/L (16-63); Albumin Globulin Ratio 1.2; Albumin Level 3.8 g/dL (3.4-5.0); Alkaline Phosphatase 93 U/L (46-116); Anion Gap 12.8; Aspartate Amino Transferase 18 U/L (15-37); BUN Creatinine Ratio 9.7; Bilirubin Total 0.4 mg/dL (0.2-1.0); Calcium 9.3 mg/dL (8.5-10.1); Carbon Dioxide 26.7 mmol/L (21.0-32.0); Chloride 109 mmol/L (98-107); Chol HDL Ratio 3.5; Cholesterol 140 mg/dL (<=200); Estimated GFR (African America >60 (>=60 mL/min/1.73m^2); Estimated GFR (Non-African Ame 57 (>=60 mL/min/1.73m^2); Free T3 2.72 pg/mL (2.18-3.98); Globulin 3.2 g/dL; Glucose 91 mg/dL (74-106); HDL Cholesterol 40 mg/dL (40-60); LDL Cholesterol Calculated 75.6 mg/dL; Potassium 3.5 mmol/L (3.5-5.1); Sodium 145 mmol/L (136-145); Thyroid Stimulating Hormone 1.397 uIU/mL (0.358-3.740); Triglycerides 122 mg/dL (<=150); VLDL CHOLESTEROL 24.4 mg/dL
[2024-09-11 16:45] LABS: Prostate Specific Antigen Scrn 3.46 ng/mL (<=4.00)
== END 2024-09-11 15:39 | disposition home or self-care (01) ==
LOC: LAB 15:43
PROVIDERS: PCP Family Medicine; Visit Provider Family Medicine
DX: R07.9 Chest pain, unspecified (principal); R06.00 Dyspnea, unspecified; E78.5 Hyperlipidemia, unspecified; D64.9 Anemia, unspecified; R73.09 Other abnormal glucose; Z12.11 Encounter for screening for malignant neoplasm of colon; R53.83 Other fatigue; E03.9 Hypothyroidism, unspecified; Z12.5 Encounter for screening for malignant neoplasm of prostate; I50.30 Unspecified diastolic (congestive) heart failure; I11.0 Hypertensive heart disease with heart failure
CPT/HCPCS: 36415; 80053; 80061; 82728; 83036; 83540; 83880; 84436; 84443; 84481; 85025; G0103

== ENCOUNTER 2024-10-01 12:14 | Outpatient (OUT) | payer MEDICARE, OTHER, SELFPAY ==
--- OUTSIDE RECORDS SUMMARY | 2024-10-01 12:32 | XMS_ITS | CCD ---
Author Organization [facility] Care Team Providers Care Accountant Budget Name Role Phone Onel Isaacs Primary Care [...] Portillo MD Unavailable Onel Isaacs MD Unavailable Onle Isaacs MD Primary Care Provider Ahmed Haitham [...] [acetaminophen-hy drocodone] Drug Allergy Unknown (qualifier value) [facility] (6 sources) Codeine; Translations: [codeine] Drug Allergy itching [facility] (20 sources) Lisinopril; Translations: [lisinopril] Drug Allergy 7 Cough [facility] (5 sources) Amoxicillin; Translations: [amoxicillin] Drug Allergy Diarrhea (finding) [facility] (1 source) Acetaminophen / oxyCODONE; Translations: [Percocet 5/325] Drug Allergy [facility] Repository Medications Current Medications Medication Drug [...] Comment on above: Take 1 capsule by [facility] once daily. Take 1,000 Units by mouth [...] 1 tablet by myesha th once daily. jq-lo-O-theanine-herb no.310 (AIRBORNE EVERYDAY STRESS AWAY) 1,000 mg-200 mg-360 mg pwpk (13 sources) Start: 8 zg-kf-H-theanine-herb no.310 (AIRBORNE EVERYDAY STRESS AWAY) 1,000 mg-200 [...] on above: Take 1 capsule by mo [facility] once daily. Vitamin B-12 5000 mcg [...] Comment on above: [facility] Take 81 mg by [...] mg/mL (1 %) 8 mL injection (XYLOCAINE) wr-mf-sluV-asbNa-Glu- Juli-hc124 (AIRBORNE, ASCORBATE SODIUM,) 334-1.7 mg chew (4 sources) take 1 tablet by mouth once daily di-dg-jzuG-asbNa-Glu -Juli-hc124 (AIRBORNE, ASCORBATE SODIUM,) 334-1.7 mg chew Take 1 tablet by mouth once daily. 0 Active Comment on above: Take 1 tablet by myesha th once daily. wz-pq-ykuA-asbNa-Glu- Juli-hc124 334-1.7 mg chew (17 sources) End: 08-13-20 take 1 tablet by mouth once daily bb-pv-rbwI-asbNa-Glu -Juli-hc124 334-1.7 mg chew Take 1 tablet by mouth once daily. 0 08/13/2023 Discontinued (Duplicate Entry) take 1 tablet by myesha th once daily ox-og-kmrO-klhJo-Nxu-Xhv-hc124 334-1.7 m g chew Take 1 tablet by mouth once daily. 0 Active Comment on above: Take 1 tablet by myesha th once daily. omega 1-pkc-tac-fish oil (FISH OIL) 900-1,400 mg cpDR (20 sources) Start: 04-12-2021 End: 02-11-2024 omega 4-jod-fey-fish oil (FISH OIL) 900-1,400 mg cpDR Take [...] you [facility]. [facility]CARD P) WALLY BARROW ([id number]) 1945 M Date Time Provider Department 05/22/24 ABEBA KEEN CARD P During your visit today, we recorded the following information about you: Indira Gonzalez 05/22/2024 3:55 PM Signed Pt calling to speak with Abeba, he asks that she please return his call when she gets in on Saturday. Cb#:[phone] Abeba Keen APRN.CNP 05/26/2024 5:48 PM Signed Pt phoned regarding his . Spoke with Pt and documented in her chart. Abeba Keen APRN.TRACEY Allergies As of Date: 05/22/2024 Noted Allergy Reaction LISINOPRIL 04/26/2017 3 - Cough Date Reviewed: 07/08/2023 Reviewed by: Tonya Crouch OCCA - Fully Assessed Reason for Visit: Patient Question [0287] Prescriptions as of 05/26/2024 - irbesartan (AVAPRO) [...] take 3 tablet once per day - dc-ne-P-theanine-herb no.310 (AIRBORNE EVERYDAY STRESS AWAY) 1,000 mg-200 [...] Encounter Status:Closed by ABEBA KEEN on 05/26/24 [facility] CNOVon 02-11-2024 CNOV Office Visit (CARD P ) WALLY BARROW ([id number]) 1945 M Date Time Provider Department 02/11/24 9:00 AM ABEBA KEEN During your visit today, we recorded the following information about you: Pulse Blood pressure Weight 60/minute 128/80 89.5 kg Abeba Keen, CROTCH [employer]IECE BASTER.MANIFEST CLERK 02/25/2024 12:19 PM Addendum Heart and Vascular Wink Beni Bynum Department of Cardiovascular Medicine SECTION [...] Factor take 3 tablet once per day oc-wm-C-theanine-herb no.310 (AIRBORNE EVERYDAY STRESS AWAY) 1,000 mg-200 [...] well ap (more content not included)... Normal [facility] ALT SerPl-cCncon 02-05-2024 ALT [Catalytic activity/Vol] 22 U/L Normal 10-54 [facility] Comment on above: Order Comment: Speci men Type: BLOOD SPECIMEN Ordering Facility: [facility] Address: [address] [place] [address] Performed By: #### 1 742-6, 16830-8 #### [facility] CLIA [id number] [address] [place] [address] [place] #### 44781-4 #### [facility] CLIA [id number] [address] [place] [address] [place] [facility] CLIA [id number] [address] [place] [address] [place] Basic metabolic 2000 panelon 02-05-2024 Anion gap [Moles/Vol] 12 mmol/L Normal 9-18 [facility] Comment on above: Order Comment: Speci men Type: BLOOD SPECIMEN Ordering Facility: [facility] Address: [address] [place] [address] Performed By: #### 1 742-6, 77443-3 #### [facility] CLIA [id number] [address] [place] [address] [place] #### 50879-5 #### [facility] CLIA [id number] [address] [place] [address] [place] [facility] CLIA [id number] [address] [place] [address] [place] Calcium [Mass/Vol] 10.2 mg/dL Normal 8.5-10.2 [facility] Comment on above: Order Comment: Speci men Type: BLOOD SPECIMEN Ordering Facility: [facility] Address: [address] [place] [address] Performed By: #### 1 742-6, 65872-0 #### [facility] CLIA [id number] [address] [address] [place] #### 15410-1 #### [facility] CLIA [id number] [address] [facility] [address] [address] [place] [facility] CLIA [id number] [address] [place] [address] [place] Chloride [Moles/Vol] 105 mmol/L Normal 97-105 [facility] Comment on above: Order Comment: Speci men Type: BLOOD SPECIMEN Ordering Facility: [facility] Address: [address] [place] [address] Performed By: #### 1 742-6, 13976-0 #### [facility] CLIA [id number] [address] [facility] [place] [address] [address] [place] #### 66871-1 #### [facility] CLIA [id number] [address] [address] [place] [facility] CLIA [id number] [address] [place] [address] [place] CO2 [Moles/Vol] 26 mmol/L Normal 22-30 [facility] Comment on above: Order Comment: Speci men Type: BLOOD SPECIMEN Ordering Facility: [facility] Address: [address] [place] [address] Performed By: #### 1 742-6, 59457-7 #### [facility] CLIA [id number] [address] [facility] [address] [address] [place] #### 73871-8 #### [facility] CLIA [id number] [address] [place] [address] [place] [facility] CLIA [id number] [address] STATES [facility] Creatinine [Mass/Vol] 1.18 mg/dL Normal 0.73-1.22 [facility] Comment on above: Order Comment: Speci men Type: BLOOD SPECIMEN Ordering Facility: [facility] Address: [address] [place] [address] Performed By: #### 1 742-6, 70134-2 #### [facility] CLIA [id number] [address] [place] [address] [place] #### 55329-2 #### [facility] CLIA [id number] [address] [place] [address] [place] [facility] CLIA [id number] [address] [place] [address] STATES [facility] Creatinine and Glomerular filtration rate.predicted panel (S/P/Bld) 64 mL/min/1.73m??? Normal >=60 [facility] Comment on above: Order Comment: Speci men Type: BLOOD SPECIMEN Ordering Facility: [facility] Address: [address] [place] [address] Result Comment: Debbie mated Glomerular Filtration Rate [...] actual GFR. Performed By: #### 1 742-6, 62691-0 #### [facility] CLIA [id number] [address] [place] [address] [place] #### 95787-0 #### [facility] CLIA [id number] [address] [place] [address] [place] [facility] CLIA [id number] [address] [place] [address] [place] Glucose [Mass/Vol] 96 mg/dL Normal 74-99 [facility] Comment on above: Order Comment: Chitra mcgowan Type: BLOOD SPECIMEN Ordering Facility: [facility] Address: [address] [place], [place] [address] Result Comment: The [place] Diabetes Association (ADA) provides guidance for cutoff [...] Standards of Medical Care in Diabetes 2016, [place] Diabetes Association. Diabetes Care. 2016.39(Suppl 1). Performed By: #### 1 742-6, 53350-1 #### [facility] CLIA [id number] [address] [place] [address] [place] #### 52190-3 #### [facility] CLIA [id number] [facility] [address] [address] [place] [facility] CLIA [id number] [address] [place] [address] [place] Potassium [Moles/Vol] 3.7 mmol/L Normal 3.7-5.1 [facility] Comment on above: Order Comment: Speci men Type: BLOOD SPECIMEN Ordering Facility: [facility] Address: [address] [place] [address] Performed By: #### 1 742-6, 75267-1 #### [facility] CLIA [id number] [facility] [place] [address] [place] #### 17526-1 #### [facility] CLIA [id number] [address] [place] [id number] [place] [facility] CLIA [id number] [address] [place] [address] [place] Sodium [Moles/Vol] 143 mmol/L Normal 136-144 [facility] Comment on above: Order Comment: Speci men Type: BLOOD SPECIMEN Ordering Facility: [facility] Address: [address] [place] [address] Performed By: #### 1 742-6, 96426-5 #### [facility] CLIA [id number] [address] [place] [address] [place] #### 08865-9 #### [facility] CLIA [id number] [address] [place] [address] [place] [facility] CLIA [id number] [address] [place] [address] [place] Urea nitrogen [Mass/Vol] 16 mg/dL Normal 9-24 [facility] Comment on above: Order Comment: Speci men Type: BLOOD SPECIMEN Ordering Facility: [facility] Address: [address] [place] [address] Performed By: #### 1 742-6, 61094-0 #### [facility] CLIA [id number] [address] [place] [address] [place] #### 26795-6 #### [facility] CLIA [id number] [address] [place], [place] [address] [place] [facility] CLIA [id number] [address] [place] [address] [place] Lipid 1996 panelon 4 Cholesterol [Mass/Vol] 156 mg/dL Normal <200 [facility] Comment on above: Order Comment: Speci men Type: BLOOD SPECIMEN Ordering Facility: [facility] Address: [address] [place] [address] Result Comment: <200 mg/dL, Desirable 200-239 mg/dL, Borderline high >239 mg/dL, High Performed By: #### 1 742-6, 33526-3 #### [facility] CLIA [id number] [facility] [place] [address] [place] #### 75210-2 #### [facility] CLIA [id number] [facility] [place] [address] [place] [facility] CLIA [id number] [address] [place] Cholesterol in HDL [Mass/Vol] 37 mg/dL Low >39 [facility] Comment on above: Order Comment: Speci men Type: BLOOD SPECIMEN Ordering Facility: [facility] Address: [address] [place] [address] Result Comment: 40-5 9 mg/dL, Acceptable >59 mg/dL, High: Negative risk factor for coronary heart disease <40 mg/dL, Low: Positive risk factor for coronary heart disease Performed By: #### 1 742-6, 36092-7 #### [facility] CLIA [id number] [address] [place] [address] [place] #### 35476-7 #### [facility] CLIA [id number] [address] [place] [address] [place] [facility] CLIA [id number] [facility] [place] [address] [place] Cholesterol in LDL [Mass/Vol] 79 mg/dL Normal <100 [facility] Comment on above: Order Comment: Speci men Type: BLOOD SPECIMEN Ordering Facility: [facility] Address: [address] [place] [address] Result Comment: <100 mg/dL, Optimal 100-129 mg/dL, Near optimal/above optimal 130-159 mg/dL, Borderline high 160-189 mg/dL, High >189 mg/dL, Very high Secondary prevention optimal LDL Cholesterol levels are recommended to be < 70 mg/dL Performed By: #### 1 742-6, 78213-0 #### [facility] CLIA [id number] [facility] [place] [address] [place] #### 95060-0 #### [facility] CLIA [id number] [facility] [place] [address] [place] [facility] CLIA [id number] [facility] [place] [address] [place] Cholesterol in LDL/Cholesterol in HDL [Mass ratio] 2.14 {ratio} Normal <2.54 [facility] Comment on above: Order Comment: Speci men Type: BLOOD SPECIMEN Ordering Facility: [facility] Address: [address] [place] [address] Result Comment: Refe melquiadesce: 1. National Cholesterol Education Program ATP III Guideline At-A-Glance Quick Desk Reference: National Heart, Lung, and Blood Wink. National Institutes of Health. 2001: NIH Publication No. 01-3305. 2. An International Atherosclerosis Society position paper: global recommendations for the management of dyslipidemia: executive summary, Atherosclerosis. 2014: 232(2):410-413. Performed By: #### 1 742-6, 31143-2 #### [facility] CLIA [id number] [address] [place] [address] [place] #### 58821-2 #### [facility] CLIA [id number] [address] [place] [address] [place] [facility] CLIA [id number] [address] [place], [place] [address] [place] Cholesterol in VLDL [Mass/Vol] 40 mg/dL High <30 [facility] Comment on above: Order Comment: Speci men Type: BLOOD SPECIMEN Ordering Facility: [facility] Address: [address] [place] [address] Performed By: #### 1 742-6, 99184-9 #### [facility] CLIA [id number] [address] [place] [id number] [place] #### 19391-8 #### [facility] CLIA [id number] [address] [place] [id number] [place] [facility] CLIA [id number] [address] [place] [address] [place] Cholesterol non HDL [Mass/Vol] 119 mg/dL Normal <130 [facility] Comment on above: Order Comment: Speci men Type: BLOOD SPECIMEN Ordering Facility: [facility] Address: [address] [place] [address] Result Comment: <130 mg/dL, Optimal 130-159 mg/dL, Near optimal/above optimal 160-189 mg/dL, Borderline high 190-219 mg/dL, High >219 mg/dL, Very high Secondary prevention optimal non HDL Cholesterol levels are recommended to be <100 mg/dL Performed By: #### 1 742-6, 44754-1 #### [facility] CLIA [id number] [address] [place] [address] [place] #### 41684-2 #### [facility] CLIA [id number] [address] [place] [address] [place] [facility] CLIA [id number] [facility] [place] [address] [place] Cholesterol.total/C holesterol in HDL [Mass ratio] 4.22 {ratio} Normal <5.10 [facility] Comment on above: Order Comment: Speci men Type: BLOOD SPECIMEN Ordering Facility: [facility] Address: [address] [place] [id number] Performed By: #### 1 742-6, 75296-1 #### [facility] CLIA [id number] [address] [place] [address] [place] #### 35294-2 #### [facility] CLIA [id number] [address] [place] [address] [place] [facility] CLIA [id number] [address] [place] [address] [place] FASTING TIME 12 hrs Normal [facility] Comment on above: Order Comment: Speci men Type: BLOOD SPECIMEN Ordering Facility: [facility] Address: [address] [place] [address] Performed By: #### 1 742-6, 62757-0 #### [facility] CLIA [id number] [address] [place] [address] [place] #### 06283-3 #### [facility] CLIA [id number] [address] [place] [address] [place] [facility] CLIA [id number] [address] [place] [address] [place] Triglyceride [Mass/Vol] 199 mg/dL High <150 [facility] Comment on above: Order Comment: Speci men Type: BLOOD SPECIMEN Ordering Facility: [facility] Address: [address] [place] [address] Result Comment: <150 mg/dL, Normal 150-199 mg/dL, Borderline high 200-499 mg/dL, High >499 mg/dL, Very high Performed By: #### 1 742-6, 51962-7 #### [facility] CLIA [id number] [address] [place] [address] [place] #### 72039-3 #### [facility] CLIA [id number] [address] [place] [address] [place] [facility] CLIA [id number] [address] [place] [address] [place] CNOVon 08-13-2023 CNOV Office Visit (CARD P ) PUSHPAWALLY CARCAMO ([id number]) 1945 M Date Time Provider Department 08/13/23 11:00 AM ABEBA KEEN CARD P During your visit today, we recorded the following information about you: Pulse Blood pressure Weight 60/minute 132/85 84.9 kg Abeba Keen APRN.MANIFEST CLERK 08/23/2023 4:31 PM Addendum Heart and Vascular Wink Beni Bynum Department of Cardiovascular Medicine SECTION [...] Factor take 3 tablet once per day iy-ha-B-theanine-herb no.310 (AIRBORNE EVERYDAY STRESS AWAY) 1,000 mg-200 [...] tablet 60 minutes prior to procedure. omega 2-jlo-sxg-fish oil (FISH OIL) 900-1,400 mg cpDR Take [...] Cigarettes Alcohol (more content not included)... Normal [facility] CNTHERAPYon 07-24-2023 CNTHERAPY OT/PT/Speech Visit ( GINGER) WALLY BARROW ([id number]) 1945 M Date Time Provider Department 07/24/23 [...] of daily living without right shoulder pain. [place] in home exercise program. Patient Goals: decrease shoulder pain Planned Interventions, Frequency, and Duration: Current Frequency: 1x/month Duration: 8 weeks Total Number of Visits Planned: 2 Planned Treatment Interventions: Therapeutic exercise (58493), Manual therapy (29122), Neuromuscular re-education (68624), Therapeutic activities (03555), Self-halfway management (96625), Patient/Family/Caregiver Education, Body Mechanics Training PLAN FOR [...] Education Learni (more content not included)... Normal [facility] CNOVon 07-08-2023 CNOV Office Visit (ORTHMN ) WALLY BARROW ([id number]) 1945 M Date Time Provider Department 07/08/23 10:00 AM REJI WEEMS ORTHDARIUSZ During your visit today, we recorded the following information about you: Weight Height 82.1 kg 1.778 m Reji Weems MD 07/08/2023 11:39 AM Signed Reji Weems M.D. M.M.Sc. Regulatory Compliance Officer of Orthopaedic Surgery at [place] [id number] Office: [phone] Consult requested for an opinion regarding the evaluation and treatment of the above patient. My final impression and recommendations will be communicated back to the requesting physician by way of the shared medical record or letter via [place] mail. Patient info: Wally Barrow ([id number]) Service date: 07/08/2023 Referred by: No referring [...] physical therapy as well as topical and csxg-nrf-pvoskko medications. Wally reports a current pain level [...] Cigarettes Quit (more content not included)... Normal [facility] Ashley 06-04-2023 [facility] Telephone (CARD P) WALLY BARROW ([id number]) 1945 M Date Time Provider Department 06/04/23 JUAN F PORTILLO CARD P During your visit today, we recorded the following information about you: Bekah Albarran 06/04/2023 12:33 PM Signed June 04, 2023 Patient Contact Number: [phone] Patient last seen within the last year: [...] Date Reviewed: 02/08/2023 Reviewed by: Per Simeon, Oak Tanner - Fully Assessed Reason for Visit: Medication Question [5538] Prescriptions as of 06/04/2023 - OTC PRODUCT once daily. OTC Force Factor take 3 tablet once per day - cp-jj-I-theanine-herb no.310 (AIRBORNE EVERYDAY STRESS AWAY) 1,000 mg-200 [...] 60 minutes prior to procedure. - omega 1-qvm-gxa-fish oil (FISH OIL) 900-1,400 mg cpDR Take [...] 1,400 mg by mouth twice daily. - nw-bu-rxnY-zcpRu-Wrl-Qdb-hc12 4 334-1.7 mg chew Take 1 tablet [...] Status:Closed by BEKAH ALBARRAN on 06/04/23 Normal [facility] EXERCISE STRESS ECG (WITHOUT IMAGING)on 02-08-2023 [facility] Basic metabolic 2000 panelon 02-06-2023 Anion gap [Moles/Vol] 11 mmol/L 9 - 18 mmol/L [facility] Calcium [Mass/Vol] 9.8 mg/dL 8.5 - 10. 2 mg/dL [facility] Chloride [Moles/Vol] 107 mmol/L High 97 - 105 mmol/L [facility] CO2 [Moles/Vol] 25 mmol/L 22 - 30 mmol/L [facility] Creatinine [Mass/Vol] 1.43 mg/dL High 0.73 - 1.22 mg/dL [facility] Estimated Glomerular Filtration Rate 51 mL/min/1.73m Low >=60 mL/min/1.73 m [facility] Glucose [Mass/Vol] 93 mg/dL 74 - 99 mg/dL [facility] Potassium [Moles/Vol] 3.7 mmol/L 3.7 - 5.1 mmol/L [facility] Sodium [Moles/Vol] 143 mmol/L 136 - 144 mmol/L [facility] Urea nitrogen [Mass/Vol] 20 mg/dL 9 - 24 mg/dL [facility] CBC panel Auto (Bld)on 02-06 Erythrocyte distribution width (RBC) [Ratio] 14.1 % 11.5 - 15.0 % [facility] Hematocrit (Bld) [Volume fraction] 46.7 % 39.0 - 51.0 % [facility] Hemoglobin (Bld) [Mass/Vol] 15.2 g/dL 13.0 - 17.0 g/dL [facility] MCH (RBC) [Entitic mass] 29.0 pg 26.0 - 34.0 pg [facility] MCHC (RBC) [Mass/Vol] 32.5 g/dL 30.5 - 36.0 g/dL [facility] MCV (RBC) [Entitic vol] 89.1 fL 80.0 - 100.0 fL [facility] Nucleated RBC (Bld) [#/Vol] <0.01 k/uL [facility] Platelet mean volume (Bld) [Entitic vol] 11.0 fL 9.0 - 12.7 fL [facility] Platelets (Bld) [#/Vol] 152 10*3/uL 150 - 400 k/uL [facility] RBC (Bld) [#/Vol] 5.24 10*6/uL 4.20 - 6.0 0 m/uL [facility] WBC (Bld) [#/Vol] 7.89 10*3/uL 3.70 - 11.00 k/uL [facility] NM CARDIAC PERF STRESS/PHARM on 01-11-2023 [facility] CHEMISTRYOrdered By: SYSTEM SYSTEM on 01-07-2023 Creatinine [Mass/Vol] 1.2 mg/dL Normal 0.5 - 1.3 mg/dL [facility] Remisol GFR/1.73 sq M.predicted among blacks MDRD (S/P/Bld) [Vol rate/Area] mL/min/1.73 m2 Normal >=59mL/min/ 1.73 m2 [facility] Chem S GFR/1.73 sq M.predicted among non-blacks MDRD (S/P/Bld) [Vol rate/Area] 59 mL/min/1.73 m2 Normal >=59mL/min/ 1.73 m2 [facility] Chem S CHEMISTRYOrdered By: SYSTEM SYSTEM on 05-18-2022 Creatinine [Mass/Vol] 1.2 mg/dL Normal 0.5 - 1.3 mg/dL [facility] Remisol GFR/1.73 sq M.predicted among blacks MDRD (S/P/Bld) [Vol rate/Area] mL/min/1.73 m2 Normal >=59mL/min/ 1.73 m2 [facility] [facility] [place] Chem S GFR/1.73 sq M.predicted among non-blacks MDRD (S/P/Bld) [Vol rate/Area] 59 mL/min/1.73 m2 Normal >=59mL/min/ 1.73 m2 [facility] [place] Chem S NM CARDIAC PERF STRESS/EXERC ISEon 04-11-2022 [facility] Large Joint Arthro/Inj: R zach boogie joint [facility] Vital Signs Date Time Vital Sign Value Performing Clinician Facility 08-14-2024 14:11-0400 Blood Pressure Location Per GAONAL [facility] [place] 08-14-2024 14:11-0400 Diastolic blood pressure 85 mm[Hg] Per NILL [facility] [place] 08-14-2024 14:11-0400 Heart rate 76 /min Per NILL [facility] [place] 08-14-2024 14:11-0400 Respiratory rate 16 /min Per NILL [facility] [place] 08-14-2024 14:11-0400 Systolic blood pressure 151 mm[Hg] Per NILL [facility] [place] 02-11-2024 09:35-0400 Body weight 89.5 kg Abeba eKen APRN.MANIFEST CLERK Work Phone: [facility] 02-11-2024 09:35-0400 Diastolic blood pressure 80 mm[Hg] Abeba Keen APRN.MANIFEST CLERK Work Phone: [facility] 02-11-2024 09:35-0400 Heart rate 60 /min Abeba [place] [employer] B[employer]ER.MANIFEST CLERK Work Phone: [facility] 02-11-2024 09:35-0400 Systolic blood pressure 128 mm[Hg] Abeba Osmani [employer] B[employer]ER.MANIFEST CLERK Work Phone: [facility] 08-13-2023 11:50-0400 Diastolic blood pressure 85 mm[Hg] Abeba [place] [employer] BASTER.MANIFEST CLERK Work Phone: [facility] 08-13-2023 11:50-0400 Systolic blood pressure 132 mm[Hg] Abeba [place] [employer] BASTER.MANIFEST CLERK Work Phone: [facility] 08-13-2023 11:39-0400 Body weight 84.87 kg Abeba Osmani [employer] B[employer]ER.MANIFEST CLERK Work Phone: [facility] 08-13-2023 11:39-0400 Heart rate 60 /min Abeba Osmani [employer] B[employer]ER.MANIFEST CLERK Work Phone: [facility] 07-08-2023 10:21-0400 Body height 177.8 cm Reji Weems MD Work Phone: [facility] 07-08-2023 10:21-0400 Body weight 82.1 kg Reji Weems MD Work Phone: [facility] 02-08-2023 10:54-0400 Body height 177.8 cm [facility] Work Phone: [facility] 02-08-2023 10:54-0400 Body weight 83.46 kg [facility] Work Phone: [facility] 02-08-2023 10:54-0400 Diastolic blood pressure 84 mm[Hg] [facility] Work Phone: [facility] 02-08-2023 10:54-0400 Heart rate 66 /min [facility] Work Phone: [facility] 02-08-2023 10:54-0400 Systolic blood pressure 132 mm[Hg] [facility] Work Phone: [facility] 02-06-2023 16:08-0400 Body height 177.8 cm Juan F Portillo MD Work Phone: [facility] 02-06-2023 16:08-0400 Body weight 83.46 kg Juan F Portillo MD Work Phone: [facility] 02-06-2023 16:08-0400 Diastolic blood pressure 84 mm[Hg] Juan F Portillo MD Work Phone: [facility] 02-06-2023 16:08-0400 Heart rate 70 /min Juan F Portillo MD Work Phone: [facility] 02-06-2023 16:08-0400 Systolic blood pressure 123 mm[Hg] Juan F Portillo MD Work Phone: [facility] 01-11-2023 13:33-0500 Diastolic blood pressure 64 mm[Hg] Abeba [place] [employer] BASTER.MANIFEST CLERK Work Phone: [facility] 01-11-2023 13:33-0500 Systolic blood pressure 110 mm[Hg] Abeba Osmani [employer] B[employer]ER.MANIFEST CLERK Work Phone: [facility] 01-11-2023 13:23-0500 Body weight 84.01 kg Abeba [place] [employer] B[employer]ER.MANIFEST CLERK Work Phone: [facility] 01-11-2023 13:23-0500 Heart rate 78 /min Abeba [place] [employer] BASTER.MANIFEST CLERK Work Phone: [facility] 08-15-2022 11:02-0400 Body height 177.8 cm Juan F Portillo MD Work Phone: [facility] 08-15-2022 11:02-0400 Body weight 82.56 kg Juan F Portillo MD Work Phone: [facility] 08-15-2022 11:02-0400 Diastolic blood pressure 72 mm[Hg] Juan F Portillo MD Work Phone: [facility] 08-15-2022 11:02-0400 Heart rate 65 /min Juan F Portillo MD Work Phone: [facility] 08-15-2022 11:02-0400 Systolic blood pressure 114 mm[Hg] Juan F Portillo MD Work Phone: [facility] 02-19-2022 11:25-0400 Diastolic blood pressure 92 mm[Hg] Tyler SALAM [facility] 02-19-2022 11:25-0400 Heart rate 47 /min Tyler SALAM [facility] 02-19-2022 11:25-0400 Respiratory rate 18 /min Tyler SALAM [facility] 02-19-2022 11:25-0400 SaO2% (BldA) [Mass fraction] 99 % Tyler SALAM [facility] 02-19-2022 11:25-0400 Systolic blood pressure 128 mm[Hg] Tyler SALAM [facility] 02-19-2022 11:15-0400 Diastolic blood pressure 92 mm[Hg] Tyler SALAM [facility] 02-19-2022 11:15-0400 Heart rate 46 /min Tyler SALAM [facility] 02-19-2022 11:15-0400 Respiratory rate 15 /min Tyler SALAM [facility] 02-19-2022 11:15-0400 SaO2% (BldA) [Mass fraction] 98 % Tyler SALAM [facility] 02-19-2022 11:15-0400 Systolic blood pressure 128 mm[Hg] Tyler SALAM [facility] 02-19-2022 11:00-0400 Diastolic blood pressure 78 mm[Hg] Tyler SALAM [facility] 02-19-2022 11:00-0400 Heart rate 51 /min Tyler [employer] [facility] 02-19-2022 11:00-0400 Respiratory rate 20 /min Tyler [employer] [facility] 02-19-2022 11:00-0400 SaO2% (BldA) [Mass fraction] 97 % Tyler [employer] [facility] 02-19-2022 11:00-0400 Systolic blood pressure 122 mm[Hg] Tyler [employer] [facility] 02-19-2022 10:46-0400 Body temperature 97.16 [degF] [facility] [employer] [facility] 02-19-2022 10:14-0400 Blood Pressure Location Tyler [employer] [facility] 02-19-2022 10:14-0400 Body temperature 98.06 [degF] [facility] Encounters Encounter Date Encounter Type Care Provider Facility Start: 08-14-2024 End: 08-14-2024 ambulatory Per SNIDER Facility:[facility] Start: 08-14-2024 End: 08-14-2024 Patient encounter procedure Per SNIDER [facility] [place] Start: 08-07-2024 ambulatory Per SNIDER Facility:[facility] Start: 05-22-2024 Telephone encounter Abeba reynolds APRN.MANIFEST CLERK Work Phone: [facility] Comment on above: Patient Question Start: 02-11-2024 End: 02-11-2024 ambulatory ABEBA KEEN Facility:[facility] Start: 02-11-2024 End: 02-11-2024 Patient encounter procedure Abeba Osmani [employer].MANIFEST CLERK Work Phone: [facility] Comment on above: Hyperlipidemia, unsp ecified hyperlipidemia type (Primary Dx); Essential hypertension; S/P AVR Start: 02-05-2024 End: 02-05-2024 ambulatory [employer] Facility:[facility] Start: 11-11-2023 Refill Juan F Portillo MD Work Phone: [facility] Comment on above: Refill Request Start: 08-19-2023 Refill Juan F Portillo MD Work Phone: [facility] Comment on above: Refill Request Start: 08-13-2023 End: 08-13-2023 [facility] Facility:[facility] Start: 08-13-2023 End: 08-13-2023 Patient encounter procedure Abeba Stoutns [employer]ER.MANIFEST CLERK Work Phone: [facility] Comment on above: Hyperlipidemia, unsp ecified hyperlipidemia type (Primary Dx); Essential hypertension; S/P AVR Start: 07-24-2023 End: 07-24-2023 ambulatory [facility] Facility:[facility] Start: 07-15-2023 Refill Joyce apple [employer] BASTER.MANIFEST CLERK Work Phone: [facility] Comment on above: Refill Request Start: 07-08-2023 End: 07-08-2023 [facility] Facility:[facility] Start: 07-08-2023 End: 07-08-2023 Patient encounter procedure Reji Weems MD Work Phone: Orthopaedics Comment on above: S/P right rotator cu ff repair (Primary Dx); Traumatic complete tear of right rotator cuff, initial encounter Start: 06-04-2023 Telephone encounter Juan F emerson MD Work Phone: [facility] Comment on above: Medication Question Start: 03-28-2023 End: 03-28-2023 Patient encounter procedure Onel Isaacs [facility] Start: 03-12-2023 Telephone encounter Juan F emerson MD Work Phone: [facility] Comment on above: Patient Question (An y additional testing?) Start: 02-08-2023 End: 02-08-2023 Patient encounter procedure Hannah Taylor APRN.MANIFEST CLERK Work Phone: [facility] Comment on above: [...] End: 01-11-2023 Patient encounter procedure Abeba Keen APRN.MANIFEST CLERK Work Phone: [facility] Comment on above: [...] End: 01-07-2023 Patient encounter procedure Onel Dae [facility] Start: 12-28-2022 Telephone encounter Hvi Thorac ic Surg Consult [facility] Comment on above: Consult (Self referr ing); Received Outside Medical Records Start: 12-27-2022 Telephone encounter Onel Isaacs MD Work Phone: NOC Comment on above: Appointment Start: 11-12-2022 Refill Juan F Portillo MD Work Phone: [facility] Comment on above: Refill Request Start: 10-11-2022 Refill Clarisse Gee APRN .MANIFEST CLERK Work Phone: [facility] Comment on above: [...] End: 05-18-2022 Patient encounter procedure Onel Isaacs [facility] Start: 04-11-2022 End: 04-11-2022 Subsequent hospital visit by physician Card Injection Molecular Imaging Comment on above: Precordial pain [R07 .2] Start: 03-27-2022 Orders Only Todd Donald i, MD Work Phone: Cardiology Comment on above: Precordial pain (Christin iban Dx) Start: 03-20-2022 Refill Hannah obrien [employer].MANIFEST CLERK Work Phone: [facility] Comment on above: Refill Request Start: 02-19-2022 End: 02-19-2022 Patient encounter procedure Jayson ADDISON [facility] Start: 08-11-2018 End: 08-15-2018 Patient encounter status Abeba Keen [employer] B[employer]ER.MANIFEST CLERK Work Phone: [facility] Work Phone: Procedures Date Procedure Procedure Detail Performing Clinician Start: 07-08-2023 History of repair of musculotendinous cuff of shoulder S/P right rotator cuff repair Reji Weems MD Work Phone: Start: 07-08-2023 Arthrocentesis aspir&/inj major jt/bursa w/o us Reji Weems MD Work Phone: Start: 02-08-2023 Cv strs tst xers&/or rx cont ecg trcg only Hannah Taylor APRN.MANIFEST CLERK Work Phone: Start: 01-11-2023 Myocardial spect multiple studies Todd Nunn MD Work Phone: Start: 04-11-2022 Myocardial spect multiple studies Todd Nunn MD Work Phone: Start: 02-19-2022 Colonoscopy [facility] Comment on above: 2 colon polyps, diverticulosis t/o colon , moderate IH Start: 02-23-2018 Esophagogastroduodenoscopy Per [facility] Start: 01-09-2017 Adult depression screening assessment Hannah Taylor APRN.MANIFEST CLERK Work Phone: Start: 11-25-2014 Colonoscopy Jayson ADDISON [...] Detail Author Start: 08-12-2030 Urine microalbumin profile [facility] Start: 08-10-2027 LIPID SCREEN LIPID SCREEN [facility] Start: 02-04-2027 [facility] Start: 05-24-2026 LIPID SCREEN LIPID SCREEN [facility] Start: 04-05-2026 DIABETES SCREEN DIABETES SCREEN [facility] Start: 04-05-2026 [facility] Start: 02-06-2026 DIABETES SCREEN DIABETES SCREEN [facility] Start: 08-10-2025 DIABETES SCREEN DIABETES SCREEN [facility] Start: 08-19-2024 End: 08-19-2024 Patient encounter procedure 08/19/2024 11:00 AM EDT Office Visit [facility] [address] [place] [address] Abeba Keen, [employer]ER.MANIFEST CLERK [address] [place] [address] 6 month f/u per pt [facility] Comment on above: 6 month f/u per pt Start: 07-26-2024 Influenza vaccination Influenza Vacc ine (#1) [facility] Start: 05-24-2024 DIABETES SCREEN DIABETES SCREEN [facility] Start: 01-24-2024 End: 03-25-2024 Alanine aminotransferase [Enzymatic activity/volume] in Serum or Plasma ALT/SGPT Lab Routine Hyperlipidemia, unspecified hyperlipidemia type Essential hypertension Expected: 01/24/2024, Expires: 03/25/2024 [facility] Work Phone: Comment on above: Expected: 01/24/2024 , Expires: 03/25/2024 Start: 01-24-2024 End: 03-25-2024 Basic metabolic 2000 panel - Serum or Plasma BASIC METABOLIC PNL Lab Routine Hyperlipidemia, unspecified hyperlipidemia type Essential hypertension Expected: 01/24/2024, Expires: 03/25/2024 [facility] Work Phone: Comment on above: Expected: 01/24/2024 , Expires: 03/25/2024 Start: 01-24-2024 End: 03-25-2024 Lipid 1996 panel - Serum or Plasma LIPID PANEL BASIC Lab Routine Hyperlipidemia, unspecified hyperlipidemia type Essential hypertension Expected: 01/24/2024, Expires: 03/25/2024 [facility] Work Phone: Comment on above: Expected: 01/24/2024 , Expires: 03/25/2024 Start: 01-11-2024 BP CONTROLLED (<130/80) BP CONTROLLE D (<130/80) [facility] Start: 01-04-2024 Covid-19 Vaccine () Covid-19 Vaccine () [facility] Start: 11-25-2023 Advance Directive Discussion Advance Directive Discussion [facility] Start: 11-25-2023 Behavioral Health Screening Behavioral Health Screening [facility] Start: 11-25-2023 Depression Assessment Depression Ass essment [facility] Start: 08-15-2023 BP CONTROLLED (<130/80) BP CONTROLLE D (<130/80) [facility] Start: 07-26-2023 Covid-19 Vaccine () Covid-19 Vaccine () [facility] Start: 07-26-2023 Influenza vaccination [facility] Start: 03-13-2023 End: 05-13-2023 Comprehensive metabolic 2000 panel - Serum or Plasma COMP METABOLIC PANEL Lab Routine Hyperlipidemia, unspecified hyperlipidemia type Expected: 03/13/2023, Expires: 05/13/2023 [facility] Work Phone: Comment on above: Expected: 03/13/2023 , Expires: 05/13/2023 Start: 03-13-2023 End: 05-13-2023 Lipid 1996 panel - Serum or Plasma LIPID PANEL BASIC Lab Routine Hyperlipidemia, unspecified hyperlipidemia type Expected: 03/13/2023, Expires: 05/13/2023 [facility] Work Phone: Comment on above: Expected: 03/13/2023 , Expires: 05/13/2023 Start: 02-21-2023 End: 04-23-2023 Basic metabolic 2000 panel - Serum or Plasma BASIC METABOLIC PNL Lab Routine Elevated serum creatinine Expected: 02/21/2023, Expires: 04/23/2023 [facility] Work Phone: Comment on above: Expected: 02/21/2023 , Expires: 04/23/2023 Start: 02-12-2023 End: 04-14-2023 Comprehensive metabolic 2000 panel - Serum or Plasma COMP METABOLIC PANEL Lab Routine S/P AVR Expected: 02/12/2023, Expires: 04/14/2023 [facility] Work Phone: Comment on above: Expected: 02/12/2023 , Expires: 04/14/2023 Start: 02-12-2023 End: 04-14-2023 Lipid 1996 panel - Serum or Plasma LIPID PANEL BASIC Lab Routine S/P AVR Essential (primary) hypertension Expected: 02/12/2023, Expires: 04/14/2023 [facility] Work Phone: Comment on above: Expected: 02/12/2023 , Expires: 04/14/2023 Start: 02-05-2023 BP CONTROLLED (<130/80) BP CONTROLLE D (<130/80) [facility] Start: 11-25-2022 ADVANCE DIRECTIVE DISCUSSION ADVANCE DIRECTIVE DISCUSSION [facility] Start: 11-25-2022 DEPRESSION ASSESSMENT DEPRESSION ASS ESSMENT [facility] Start: 07-26-2022 Influenza vaccination INFLUENZA (#1) [facility] Start: 05-03-2022 COVID-19 VACCINE (5 - Booster for Pfizer series) COVID-19 VACCINE (5 - Booster for Pfizer series) [facility] Start: 04-11-2022 End: 04-26-2023 NM CARDIAC PERF STRESS/EXERCISE NM CARDIAC PERF STRESS/EXERCISE Radiology Routine Precordial pain Expected: 04/11/2022, Expires: 04/26/2023 [facility] Work Phone: Comment on above: Expected: 04/11/2022 , Expires: 04/26/2023 Start: 11-25-2021 ADVANCE DIRECTIVE DISCUSSION ADVANCE DIRECTIVE DISCUSSION [facility] Start: 11-25-2021 DEPRESSION ASSESSMENT DEPRESSION ASS ESSMENT [facility] Start: 09-16-2020 SHINGRIX VACCINE (2 of 2) ROD GRIX VACCINE (2 of 2) [facility] Start: 06-10-2018 Pneumococcal Vaccine : 65+ (2 - PPSV23 or PCV20) Pneumococcal Vaccine: 65+ (2 - PPSV23 or PCV20) [facility] Start: 06-10-2018 PNEUMOCOCCAL: 65+ (2 - PPSV23 if available, else PCV20) PNEUMOCOCCAL: 65+ (2 - PPSV23 if available, else PCV20) [facility] Start: 06-10-2018 PNEUMOCOCCAL: 65+ (2 - PPSV23 or PCV20) PNEUMOCOCCAL: 65+ (2 - PPSV23 or PCV20) [facility] Start: 01-09-2018 Adult depression scr eening assessment DEPRESSION SCREENING [facility] Start: 2011 PNEUMOVAX AGE 65 AND OVER WITH 5YR LOOKBACK (#1) PNEUMOVAX AGE 65 AND OVER WITH 5YR LOOKBACK (#1) [facility] Start: 1991 COLOGUARD (FIT-DNA) COLOGUARD (FIT-D NA) [facility] Start: 1991 Colonoscopy COLONOSCOPY [facility] Start: 1991 COLORECTAL CANCER SCREENING COLORECTAL CANCER SCREENING [facility] Start: [address] COLONOGRAPHY [facility] Start: 1991 FECAL OCCULT BLOOD FECAL OCCULT BLOO D [facility] Start: 1991 [facility] Start: 1964 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 DISEASE VISIT ANNUAL PCP TEAM CHRONIC DISEASE VISIT [facility] Start: 1964 BP CONTROLLED (<130/80) BP CONTROLLE D (<130/80) [facility] Start: 1964 HEPATITIS C SCREENING HEPATITIS C [facility] Start: 1964 Hepatitis C screening Hepatitis C [facility] End: 01-08-2024 ECG COMPLETE ECG COMPLETE ECG Routine Chest pain, unspecified type 1 Occurrences starting 01/08/2023 until 01/08/2024 [facility] Work Phone: Comment on above: 1 Occurrences starti ng 01/08/2023 until 01/08/2024 End: 08-15-2023 Echocardiography ECHO Cardiology Routine S/P AVR 1 Occurrences starting 08/15/2022 until 08/15/2023 [facility] Work Phone: Comment on above: 1 Occurrences starti ng 08/15/2022 until 08/15/2023 End: 03-13-2024 Echocardiography ECHO Cardiology Routine S/P ascending aortic replacement Nonrheumatic aortic valve insufficiency 1 Occurrences starting 03/13/2023 until 03/13/2024 [facility] Work Phone: Comment on above: 1 Occurrences starti ng 03/13/2023 until 03/13/2024 NM CARDIAC PERF STRESS/PHARM NM CARDIAC PERF STRESS/PHARM Radiology Routine Chest pain, unspecified type Ordered: 01/08/2023 [facility] Work Phone: Comment on above: Ordered: 01/08/2023 [facility] Immunizations Immunization Date Immunization Notes Care Provider Fa cili 08-15-2023 influenza virus vacc ine, unspecified formulation Abeba Keen APRN.CNP Work Phone: [facility] 09-11-2022 influenza virus vacc ine, unspecified formulation Onel Isaacs [facility] 09-11-2022 SARS-CoV-2 (COVID-19 ) [id number] Onel Isaacs [facility] 03-08-2022 SARS-CoV-2 (COVID-19 ) mRNA-1273 vaccine Onel Hoy [facility] 10-13-2021 SARS-CoV-2 (COVID-19 ) mRNA-1273 vaccine Onel Hoy [facility] 09-28-2021 influenza virus vacc ine, unspecified formulation Onel Hoy [facility] 08-25-2021 influenza virus vacc ine, unspecified formulation Tyler SALAM [facility] 02-10-2021 SARS-CoV-2 (COVID-19 ) mRNA BNT-162b2 vax Onel Hoy [facility] 01-20-2021 SARS-CoV-2 (COVID-19 ) mRNA BNT-162b2 vax Onel Hoy [facility] Comment on above: Result Comment: 2022: [id number] 09-24-2020 pneumococcal polysaccharide vaccine, 23 valent Onel Hoy [facility] 09-21-2020 zoster vaccine recombinant Onel Hoy [facility] 08-12-2020 tetanus toxoid, redu richar diphtheria toxoid, and acellular pertussis vaccine, adsorbed Onel Hoy [facility] 08-03-2020 influenza virus vacc ine, unspecified formulation Onel Hoy [facility] 07-22-2020 zoster vaccine recombinant Onel Hoy [facility] 09-15-2019 influenza virus vacc ine, unspecified formulation Onel Hoy [facility] 07-22-2018 influenza virus vacc ine, unspecified formulation Onel Hoy [facility] 07-22-2018 influenza, high dose seasonal, preservative-free Hannah Taylor [employer].[facility] Work Phone: [facility] Work Phone: 10-11-2017 influenza virus vacc ine, unspecified formulation Onel Isaacs [facility] 10-11-2017 Seasonal trivalent influenza vaccine, adjuvanted, preservative free Hannah Taylor [employer].[facility] Work Phone: [facility] Work Phone: 06-10-2017 pneumococcal conjuga te vaccine, 13 valent Hannah Taylor [employer].[facility] Work Phone: [facility] Work Phone: 12-05-2015 influenza virus vacc ine, unspecified formulation Onel Isaacs [facility] 12-05-2015 influenza, seasonal, injectable, preservative free Hannah Taylor [employer].[facility] Work Phone: [facility] Work Phone: 10-05-2014 influenza virus vacc ine, unspecified formulation Onel Isaacs [facility] 10-05-2014 influenza, injectabl e, quadrivalent, contains preservative Hannah Taylor [employer].[facility] Work Phone: [facility] Work Phone: 08-28-2005 tetanus toxoid, adsorbed Chr istina Taylor [employer].[facility] Work Phone: [facility] Work Phone: Payers Date Payer Category Payer Private Health Insurance HU[employer]NA HUMANA MEDICARE SUPPLEMENT [id number] 2015-Present [id number] [place] [id number] Indemnity [id number] 2015 Private Health Insurance [employer]NA HUMANA MEDICARE SUPPLEMENT [id number] 2015-Present [phone] [address] [address] [place] [address] Indemnity [id number] 2015 Medicare [id number] 2013 Medicare MEDICARE MEDICAR E A AND B [id number] 2013-Present [phone] [address] [address] [place] [address] Medicare [id number] 2013 Medicare MEDICARE MEDICAR E A AND B [id number] 2013-Present [phone] [place] [address] Medicare [id number] 2013 Medicare [id number] 2013 Unknown [facility] [id number] 07/26/2013-Present [phone] [place] [address] [address] [place] [address] [facility] [id number] 1945 Unknown [id number] Social History Date Type Detail Facility Start: 02-07-2022 End: 08-14-2024 Tobacco smoking status Ex-smoker (finding) [facility] Start: 02-08-2023 End: 07-08-2023 Sex Assigned At Male [facility] End: 08-11-1990 History of tobacco use Current smoker [facility] End: 08-11-1990 History of tobacco use Cigarette Smoker [facility] Start: 10-29-2016 End: 07-08-2023 Cigarettes smoked current (pack per day) - Reported 1.5 [facility] Start: 10-29-2016 End: 08-15-2022 Tobacco use and exposure Smokeless tobacco non-user [facility] Start: 02-09-2022 End: 02-11-2024 Alcohol intake Current drinker of alcohol (finding) [facility] Start: 10-29-2016 History SDOH Alcohol Comment social [facility] Start: 1945 Sex Assigned At Male [facility] Start: 04-01-2022 End: 08-15-2022 Exposure to SARS-CoV-2 (event) Not sure [facility] Tobacco smoking status Never [facility] Start: 08-15-2022 Tobacco Comment Quit over 30 yrs ago [facility] Start: 07-07-2019 Gender identity Identifies as male gender (finding) [facility] Start: 07-07-2019 Sexual orientation Heterosexual (lata kaplan) [facility] Medical Equipment Procedure Code Equipment Code Equipment Original Text Equipment Identifier Dates Graft Gelweave V alsalva 30mm 15cm Cardiovascular Woven Aortic Root - [id number] Start: 08-12-2018 [place] Thk1.65mm P tfe 4x.5in Cardiovascular Sterile - [id number] Start: 08-12-2018 Valve Aort 27mm Crp-Ed Thfx - [id number] Start: 08-12-2018 Goals Date Patient Goal Desired Activity /State Personal health goal Functional Status Date Assessment Result Facility 08-14-2024 Functional Status N/A [facility] [place] Clinical Notes 08-15-2018 to 08-14-2024 Telephone Encounter - Abeba Keen APRN.MANIFEST CLERK - 05/26/2024 5:47 PM EDTTelephone Encounter - Abeba Keen APRN.MANIFEST CLERK - 05/26/2024 5:47 PM Abeba Mahan APRN.MANIFEST CLERK - 02/11/2024 9:18 AM EDTLaboratory Note Date [...] involvement in that location; 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 [facility] Comment on above: Result Comment: Elec tronically Signed By: Per SNIDER MD\Date and Time Signed: 08/14/24 16:26 EDT 05-26-2024 Telephone encounter Note Pt phoned regarding his . Spoke with Pt and documented in her chart. Abeba Keen APRN.CNP [facility] 05-26-2024 Miscellaneous Notes Pt phoned regarding his . Spoke with Pt and documented in her chart. Abeba Keen APRN.CNP Pt calling to speak with Abeba, he asks that she please return his call when she gets in on Saturday. Cb#:[phone] documented in this encounter [facility] 05-22-2024 Telephone encounter Note Pt calling to speak with Abeba, he asks that she please return his call when she gets in on Saturday. Cb#:[phone] [facility] 02-11-2024 Note HNO ID: [id number] Author: ABEBA KEEN APRN.CNP Service: ? Author Type: Nurse Practitioner Type: Progress Notes Filed: 02/25/2024 12:19 Note Text: Heart and Vascular [facility] Department of Cardiovascular Medicine SECTION [...] Factor take 3 tablet once per day ul-mc-E-theanine-herb no.310 (AIRBORNE EVERYDAY STRESS AWAY) 1,000 mg-200 [...] without murmur, nor (more content not included)... [facility] 02-11-2024 History of Present illness Narrative Images from the original note were not included. [facility] V[facility] Department of Cardiovascular Medicine SECTION [...] Factor take 3 tablet once per day ad-or-H-theanine-herb no.310 (AIRBORNE EVERYDAY STRESS AWAY) 1,000 mg-200 [...] 74 - 99 mg/dL Final Comment: The [place] Diabetes Association (ADA) provides guidance for cutoff [...] Standards of Medical Care in Diabetes 2016, [place] Diabetes Association. Diabetes Care. 2016.39(Suppl 1). TSH [...] for Disease Control and Prevention and the [place] Heart Association. Circulation 2003;107:499-511. Creatinine Date Value [...] lightheadedness and decreased motivation to start daily forepart laster. Will discuss timing of repeat echo with [...] and care of this patient. Abeba Keen APRN.MANIFEST CLERK documented in this encounter [facility] 11-11-2023 Miscellaneous Notes Call from patient requesting refill. Requested Prescriptions Pending Prescriptions Disp Refills hydroCHLOROthiazide 25 mg tablet 90 tablet 3 Sig: Take 1 tablet by mouth once daily. Patient last seen 08/17 Indira Lieberman Pss documented in this encounter [facility] 08-13-2023 Note HNO ID: [id number] Author: Abeba Keen APRN.CNP Service: ? Author Type: Nurse Practitioner Type: Progress Notes Filed: 08/23/2023 4:31 PM Note Text: Heart [facility] V[facility] Department of Cardiovascular Medicine SECTION [...] Factor take 3 tablet once per day ht-pe-T-theanine-herb no.310 (AIRBORNE EVERYDAY STRESS AWAY) 1,000 mg-200 [...] tablet 60 minutes prior to procedure. omega 3-gfh-avz-fish oil (FISH OIL) 900-1,400 mg cpDR Take [...] kg/m? BMI 26 (more content not included)... [facility] 08-13-2023 History of Present illness Narrative Images from the original note were not included. [facility] V[facility] Department of Cardiovascular Medicine SECTION [...] Factor take 3 tablet once per day dy-oy-H-rola-herb no.310 (AIRBORNE EVERYDAY STRESS AWAY) 1,000 mg-200 [...] tablet 60 minutes prior to procedure. omega 2-oth-qfe-fish oil (FISH OIL) 900-1,400 mg cpDR Take [...] DEVIATION ABNORMAL ECG Confirmed by LEEANNE SOLIZ, [facility] ([id number]) on 01/14/2023 10:15:12 AM Ejection Fraction: Ejection [...] 74 - 99 mg/dL Final Comment: The [place] Diabetes Association (ADA) provides guidance for cutoff [...] Standards of Medical Care in Diabetes 2016, [place] Diabetes Association. Diabetes Care. 2016.39(Suppl 1). TSH [...] for Disease Control and Prevention and the [place] Heart Association. Circulation 2003;107:499-511. Creatinine Date Value [...] and care of this patient. Abeba Keen APRN.MANIFEST CLERK documented in this encounter [facility] 07-24-2023 Note HNO ID: [id number] Author: Lucy Hutton PT Service: ? Author [...] of daily living without right shoulder pain. [place] in home exercise program. Patient Goals: decrease shoulder pain Planned Interventions, Frequency, and Duration: Current Frequency: 1x/month Duration: 8 weeks Total Number of Visits Planned: 2 Planned Treatment Interventions: Therapeutic exercise (52038), Manual therapy (85844), Neuromuscular re-education (70130), Therapeutic activities (88704), Self-halfway management (12896), Patient/Family/Caregiver Education, Body Mechanics Training PLAN FOR [...] treatment interventions for (more content not included)... [facility] 07-08-2023 Note HNO ID: [id number] Author: Reji Weems MD Service: ? Author Type: Physician Type: Progress Notes Filed: 07/08/2023 11:39 AM Note Text: Reji Weems M.D. M.M.Sc. Regulatory Compliance Officer of Orthopaedic Surgery at [place] [address] Office: [phone] Consult requested for an opinion regarding the evaluation and treatment of the above patient. My final impression and recommendations will be communicated back to the requesting physician by way of the shared medical record or letter via US mail. Patient info: Wally Barrow ([id number]) Service date: 07/08/2023 Referred by: No referring [...] physical therapy as well as topical and rofq-zli-pjbssap medications. Wally reports a current pain level [...] Alcohol/week: 6.0 stand (more content not included)... [facility] 07-08-2023 History of Present illness Narrative Associated Order(s): Large Joint Arthro/Inj: R shoulder joint Post-Procedure Diagnose(s): S/P right rotator cuff repair; Traumatic complete tear of right rotator cuff, initial encounter Images from the original note were not included. Reji RiveraM.Sc. Regulatory Compliance Officer of Orthopaedic Surgery at [place] [address] Office: [phone] Consult requested for an opinion regarding the evaluation and treatment of the above patient. My final impression and recommendations will be communicated back to the requesting physician by way of the shared medical record or letter via US mail. Patient info: Wally Barrow ([id number]) Service date: 07/08/2023 Referred by: No referring [...] physical therapy as well as topical and pvgj-aus-tvpbznb medications. Walyl reports a current pain level of 4 [...] 2 capsule by mouth twice per day. oy-lf-hnyC-sfvBa-Ztn-Omb-hc124 334-1.7 mg chew Take 1 tablet by [...] Factor take 3 tablet once per day sl-qy-L-rola-herb no.310 (AIRBORNE EVERYDAY STRESS AWAY) 1,000 mg-200 [...] tablet 60 minutes prior to procedure. omega 6-qre-oma-fish oil (FISH OIL) 900-1,400 mg cpDR Take [...] shoulder joint Informed Consent Consent Obtained: Verbal Walker Protocol A moment to CARE was completed. [...] Shoulder and Elbow Surgeon Orthopaedic Surgery Department [place], [place] [address] Tell: [phone] Appt:[phone] 07/08/2023 10:14 AM CC: documented in this encounter [facility] 06-04-2023 Miscellaneous Notes June 04, 2023 Patient Contact Number: [phone] Patient last seen within the last year: [...] Yes Bekah Albarran documented in this encounter [facility] 03-13-2023 Miscellaneous Notes I called spoke with patient, and informed orders for labs and echo are now in chart so can schedule to have done. Roselyn Orders for labs and echo placed Clarisse Gee APRN.CNP March 12, 2023 Patient Contact Number: [phone] Patient last seen within the last year: [...] Yes Roselyn Aden documented in this encounter [facility] 02-08-2023 Instructions Jamarcus Watts, Oak Tanner - 02/08/2023 2:15 PM EDT Images from [...] outside the ones listed below): *Smart Watch (enavu, Syncapse, R&M Engineering, etc); *POLAR chest strap (model: H10 with any POLAR wrist watch, such as the POLAR UNITE); *Garmin chest strap (model: HRM-Pro Plus with any Garmin watch, such as the Ichiba 5); *MSTo 5 or 7 sport watch *Commercial heart [...] improves orthostatic tolerance in healthy subjects. Circulation. 2002;106(22):9671-9307). Do not gulp or chug water. Slowly [...] listed above. *Commercial brands include for example: *Neptune Mobile Devices Watch (enavu, Syncapse, R&M Engineering, etc); *POLAR chest strap (model: H10 with any POLAR wrist watch, such as the POLAR UNITE); *Garmin chest strap (model: HRM-Pro Plus with any Garmin watch, such as the VIVOSMART 5); *Xelor Software 5 or 7 sport watch *Commercial heart rate monitors are not medical devices and the information acquired from these devices should not be used to make medical diagnostic decisions. *Do NOT monitor your HR while performing activities of daily living or other types of quick physical movements throughout your day. *If necessary/needed, keep a brief exercise log for self-management (free apps such as [employer] Mack my Walk or [employer] Pal or on paper). *Set a hard [...] of Preventive Cardiology (EAPC) and the ESC [place] on Hypertension. Eur J Prev Cardiol. 2021;29(1):205-215. [...] Physical Activity Guidelines for Americans. CARLOS ENRIQUE. 2018;320(19):0615-4910. General Weight Management Recommendations: *I recommend aiming to lose approximately 0.5 lb per week for the next 3 months in order to achieve a body weight of 178 lbs. *Mediterranean style diet is recommended. Take our quiz to see how compliant you are with the Mediterranean style diet: [email or web address]/are -afp-wxpzar-k-mediterranean-diet/ *When eating carbohydrates, look for low glycemic [...] exercise prescription. *As needed, Virtual Visit (Visit [email or web address]. Questions? Contact technical support at [phone]) in 6-8 months for follow up discussions regarding progress made with your exercise plan. *If you would like more information on cardiac rehabilitation, please visit our dedicated [facility] web-page aimed at providing evidence-based information on heart health at the following, [email or web address]. Thank you for your visit with us today in Preventive Cardiology and Rehabilitation. Jamarcus Watts, PhD Director, Cardiac Rehabilitation Staff, Section of Preventive Cardiology & Rehabilitation Heart and Vascular [facility] [address] [place] [address] Office: [phone] Appointment Desk: [phone] option #3 documented in this encounter [facility] 02-08-2023 History of Present illness Narrative Images from the original note were not included. Heart and Vascular [facility] Department of Cardiovascular Medicine SECTION [...] Factor take 3 tablet once per day tl-mu-N-theanine-herb no.310 (AIRBORNE EVERYDAY STRESS AWAY) 1,000 mg-200 [...] tablet 60 minutes prior to procedure. omega 8-vdn-hms-fish oil (FISH OIL) 900-1,400 mg cpDR Take [...] 2 chewables by mouth twice per day. fa-pn-uwpP-ygwKn-Epr-Txd-hc124 334-1.7 mg chew Take 1 tablet by [...] daily[place] [address] [place]. Readiness for change:Preparation (intent to change [...] 74 - 99 mg/dL Final Comment: The [place] Diabetes Association (ADA) provides guidance for cutoff [...] Standards of Medical Care in Diabetes 2016, [place] Diabetes Association. Diabetes Care. 2016.39(Suppl 1). TSH [...] outside the ones listed below): *Smart Watch (enavu, Syncapse, R&M Engineering, etc); *POLAR chest strap (model: H10 with any POLAR wrist watch, such as the POLAR UNITE); *FairShare chest strap (model: HRM-Pro Plus with any Garmin watch, such as the Ichiba 5); *MSTo 5 or 7 sport watch *Commercial heart [...] improves orthostatic tolerance in healthy subjects. Circulation. 2002;106(22):1023-6480). Do not gulp or chug water. Slowly [...] *Commercial brands include for example: *Smart Watch (enavu, Syncapse, R&M Engineering, etc); *POLAR chest strap (model: H10 with [...] log for self-management (free apps such as CH Mack my Walk or [employer] Pal or on paper). *Set a hard (upper) time limitation on how much time you will spend on each exercise session so that fitting/dedicating time for exercise does not become stressful and a burden. Evidence Based Guidelines: Hanssen H, Colon H, Silverio A, et al. Personalized exercise prescription in the prevention and treatment of arterial hypertension: a Consensus Document from the Association of Preventive Cardiology (EAPC) and the ESC [place] on Hypertension. Eur J Prev Cardiol. 2021;29(1):205-215. [...] Physical Activity Guidelines for Americans. CARLOS ENRIQUE. 2018;320(19):4225-1898. General Weight Management Recommendations: *I recommend aiming to lose approximately 0.5 lb per week for the next 3 months in order to achieve a body weight of 178 lbs. *Mediterranean style diet is recommended. Take our quiz to see how compliant you are with the Mediterranean style diet: [email or web address]://health.[email or web address]/are -imi-nslhbm-h-mediterranean-diet/ *When eating carbohydrates, look for low glycemic [...] exercise prescription. *As needed, Virtual Visit (Visit [email or web address]. Questions? Contact technical support at [phone]) in 6-8 months for follow up discussions regarding progress made with your exercise plan. *If you would like more information on cardiac rehabilitation, please visit our dedicated [facility] web-page aimed at providing evidence-based information on heart health at the following, [email or web address]. Thank you for your visit with us [...] Exercise and lifestyle guidance as above per biometry teacher. I have reviewed the documentation obtained and [...] instruction and/or handouts. documented in this encounter [facility] 02-06-2023 History of Present illness Narrative Images from the original note were not included. Heart, Vascular, and Thoracic [facility] Department of Cardiovascular Medicine SECTION [...] Factor take 3 tablet once per day wb-ln-Z-theanine-herb no.310 (AIRBORNE EVERYDAY STRESS AWAY) 1,000 mg-200 [...] tablet 60 minutes prior to procedure. omega 6-ohs-dys-fish oil (FISH OIL) 900-1,400 mg cpDR Take [...] in the CT contrast administration guidelines link. df-du-kvfK-svuRl-Zay-Eko-hc124 334-1.7 mg chew Take 1 tablet by [...] Factor take 3 tablet once per day do-nh-L-theanine-herb no.310 (AIRBORNE EVERYDAY STRESS AWAY) 1,000 mg-200 [...] tablet 60 minutes prior to procedure. omega 6-kag-ehe-fish oil (FISH OIL) 900-1,400 mg cpDR Take [...] in the CT contrast administration guidelines link. vz-ks-uomP-ugxRm-Cga-Gje-hc124 334-1.7 mg chew Take 1 tablet by [...] my office phone number, office fax number, [employer] instructions, and my work email address. Wally Barrow was strongly encouraged to use [employer] for communication if possible, but my email address was provided if needed. Juan F Portillo MD AMBULATORY PATIENT EDUCATION Topic: Hyperlipidemia and Hypertension Instruction Provided To: Patient Barriers: None Motivation to Learn: Interested Methods of Instruction: Verbal instruction and/or handouts. Patient Leans Best By: Multiple Methods Patient Verbalized: Understanding documented in this encounter [facility] 01-11-2023 History of Present illness Narrative Images from the original note were not included. Heart [facility] V[facility] Department of Cardiovascular Medicine SECTION OF PREVENTIVE CARDIOLOGY 01/11/2023 Wally Barrow CURRENT MEDS: Current Outpatient Medications Medication Sig fg-bo-U-theanine-herb no.310 (AIRBORNE EVERYDAY STRESS AWAY) 1,000 mg-200 [...] tablet 60 minutes prior to procedure. omega 2-uze-dqc-fish oil (FISH OIL) 900-1,400 mg cpDR Take [...] in the CT contrast administration guidelines link. bn-rk-pkhP-hckKu-Tqm-Bmv-hc124 334-1.7 mg chew Take 1 tablet by [...] 74 - 99 mg/dL Final Comment: The [place] Diabetes Association (ADA) provides guidance for cutoff [...] Standards of Medical Care in Diabetes 2016, [place] Diabetes Association. Diabetes Care. 2016.39(Suppl 1). TSH [...] for Disease Control and Prevention and the [place] Heart Association. Circulation 2003;107:499-511. Creatinine Date Value [...] and care of this patient. Abeba Keen APRN.MANIFEST CLERK documented in this encounter [facility] 01-11-2023 History of Present illness Narrative RADIOLOGY SERVICE PROGRESS NOTE SERVICE DATE: 01/11/2023 SERVICE TIME: 10:18 AM PATIENT IDENTITY VERIFICATION COMPLETED USING TWO (2) STANDARD IDENTIFIERS: Name and Date of confirmed by patient verbally and Name and Date of confirmed by identification band PATIENT GENDER DATA: male ALLERGIES: Reviewed and unchanged MEDICATIONS REVIEWED BY: Oak Tanner PROCEDURE TYPE: NM STRESS: 0.4 mg of [...] 11, 2023 TIME: 10:18 AM PAGER/CONTACT #: [phone] documented in this encounter [facility] 01-01-2023 Miscellaneous Notes Images from the [...] us if needed Maryann Torres RN Received Noquo Staff Message from external referring denise/ JOCY [...] office for scheduling. Please call pt at [phone]. Patient was informed consultation could be at [facility] or [facility]: No Patient Registration: Registration complete/updated: yes Insurance card(s) scanned in [facility] with in the past year: No Pt's [employer] is active. Ok to communicate to pt via [employer] yes Medical Records: Records in [facility] (internal [facility] records): No Imaging in [facility] (internal [facility] records): No Care Everywhere [...] No Laurence Christie documented in this encounter [facility] 12-27-2022 Miscellaneous Notes Reason for call: Mr Barrow called and he would like to schedule an appointment with a thoracic surgeon as soon as possible Home and cell number [phone] Diagnosis right side muscle pain Kind Regards Rosa documented in this encounter [facility] 11-12-2022 Miscellaneous Notes Call from patient requesting refill. Requested Prescriptions Pending Prescriptions Disp Refills hydroCHLOROthiazide (HYDRODIURIL, ESIDRIX) 25 mg tablet 90 tablet 3 Sig: Take 1 tablet by mouth once daily. Patient last seen 08/16 Indira Zavala documented in this encounter [facility] 10-15-2022 Miscellaneous Notes The following approved [...] 07/2022 Bekah Albarran documented in this encounter [facility] 08-15-2022 History of Present illness Narrative Images from the original note were not included. Heart, Vascular, and Thoracic [facility] Department of Cardiovascular Medicine SECTION [...] weeks. After 09/2020 visit saw Ezekiel Taylor PLANT HR MANAGER in follow-up in 02/13. Notes daily mild [...] 1 tablet by mouth once daily. omega 1-ivw-fhh-fish oil (FISH OIL) 900-1,400 mg cpDR Take [...] in the CT contrast administration guidelines link. bv-qk-asgH-nzbLq-Bya-Uzh-hc124 334-1.7 mg chew Take 1 tablet by [...] 1 tablet by mouth once daily. omega 5-nju-gmo-fish oil (FISH OIL) 900-1,400 mg cpDR Take [...] in the CT contrast administration guidelines link. jq-ls-ovsE-oynZn-Zmj-Dgj-hc124 334-1.7 mg chew Take 1 tablet by [...] my office phone number, office fax number, [employer] instructions, and my work email address. Wally Barrow was strongly encouraged to use [employer] for communication if possible, but my email address was provided if needed. Juan F Portillo MD AMBULATORY PATIENT EDUCATION Topic: Hyperlipidemia and Hypertension Instruction Provided To: Patient Barriers: None Motivation to Learn: Interested Methods of Instruction: Verbal instruction and/or handouts. Patient Leans Best By: Multiple Methods Patient Verbalized: Understanding documented in this encounter [facility] 08-10-2022 Miscellaneous Notes August 10, 2022 Patient Contact Number: [phone] Patient last seen within the last year: [...] Yes Roselyn Aden documented in this encounter [facility] 04-11-2022 History of Present illness Narrative [...] STATUS: Discontinued PROCEDURE TYPE: NM Stress: 13.0mCi Zn90q-Zosrzzj was administered IV for Rest Imaging at 0905. 32 mCi Ji96r-Pahowmz was administered IV for Stress Imaging at 1018 by RT Luz Marina(R) . PATIENT DISCHARGED TO: Ambulatory patient, left NM department area. A Diagnostic radioactive procedure has taken place, with no further precautions necessary other than routine body substance precautions. More information regarding radiation safety can be found using this link: [email or web address] [email or web address]/files/Rad%20Protection% 20-%20Diagnostic%20Nuclear%20Medicine% 20Procedures.pdf SIGNATURE: RT Althea(R) PATIENT NAME: Wally Barrow DATE: April 11, 2022 TIME: 9:10 AM PAGER/CONTACT #: documented in this encounter [facility] 03-20-2022 Miscellaneous Notes Call from patient requesting refill. Patient is scheduled for dental work on 03/28/22. Pending Prescriptions Disp Refills AZITHROMYCIN 500 MG TABLET 1 tablet 0 Sig: Take 1 tablet by mouth once daily. Take one tablet 60 minutes prior to procedure. DU: No Patient last seen January 2022 Navya Zavala documented in this encounter [facility] 03-09-2022 Evaluation + Plan note Future Scheduled TestsFecal WBC Lactoferrin 03/09/22Giardia lamblia, Direct Detection EIA 03/09/22O & P Exam, Routine 03/09/22Clostridium difficile by PCR 03/09/22Enteric Panel by PCR 03/09/22 [facility] 02-19-2022 Hospital Discharge instructions Patient Education [...] 08/07/2005 Document Revised: 02/26/2019 Document Reviewed: 02/26/2019 English Helper Patient Education 2020 Glance App. 02/19/2022 11:09:09 Diverticulosis MAGR (CUSTOM) Diverticulosis Many [...] unsweetened, w/added ascorbic acid 1 cup 0.5 [place] 1 cup 0.7 Vegetables Cooked Green beans 1 cup 4.0 Carrots 1/2 cup sliced 2.3 Peas 1 cup 8.8 Potato (baked, with skin) 1 medium potato 3.8 Raw [place] (with peel) 1 cucumber 1.5 Lettuce 1 [...] 8.7 Peanuts 1/2 cup 7.9 Chart from [facility] 2013. SEEK IMMEDIATE MEDICAL CARE IF: [...] Nutrient Database for Standard Reference. Available at http://www.Ubiquigent.usda.gov/fnic/foodcomp/ search/. Information adapted from: [facility] Patient Information 2009 [employer]. [employer] 2012 [email or web address] [email or web address]-ioianlo-qjleso-the-[email or web address] Follow Up Care 02/07/2022 10:39:23 With:Jayson ADDISON Address: [address] [place] [address]. [address] [place] [address] Business (1) When: Unknown Comments:office will call for follow up [facility] 08-15-2018 History of Past i llness [...] incident. Plan: Post-pull repeat CXR ipending. Continue VETERINARY MEDICAL OFFICER for pain related to catheter. Acute post-operative pain 08/12/20182017 Overview: History: post OHS Assessment: pain is well controlled with current regimen. Pt. requests VETERINARY MEDICAL OFFICER continue. Does have itching when takes Oxycodone, but states all pain meds causes this for him (no rash noted) Plan: Continue current regimen with lidoderm patches, Tylenol, Oxycodone/Tramadol, and VETERINARY MEDICAL OFFICER. Add Benadryl. Bowel regimen in place. Cardiac [...] Cardiac Surgical prep: N/A SIGNATURE: Belia Gardner APRN.MANIFEST CLERK CHECKED BY: DATE of SERVICE: 08/11/2018 TIME of SERVICE: 5:09 PM Ascending aortic aneurysm 2017 Dilated aortic root 08/15/2018 documented as of this encounter (statuses as of 03/23/2022) [facility] History of Past illness Narrative* Problem [...] incident. Plan: Post-pull repeat CXR ipending. Continue VETERINARY MEDICAL OFFICER for pain related to catheter. Acute post-operative pain 08/12/20182017 Overview: History: post OHS Assessment: pain is well controlled with current regimen. Pt. requests VETERINARY MEDICAL OFFICER continue. Does have itching when takes Oxycodone, but states all pain meds causes this for him (no rash noted) Plan: Continue current regimen with lidoderm patches, Tylenol, Oxycodone/Tramadol, and VETERINARY MEDICAL OFFICER. Add Benadryl. Bowel regimen in place. Cardiac [...] Cardiac Surgical prep: N/A SIGNATURE: Belia Gardner APRN.MANIFEST CLERK CHECKED BY: DATE of SERVICE: 08/11/2018 TIME of SERVICE: 5:09 PM Ascending aortic aneurysm 2017 Dilated aortic root 08/15/2018 documented as of this encounter (statuses as of 03/28/2022) [facility] History of Past illness Narrative* Problem [...] incident. Plan: Post-pull repeat CXR ipending. Continue [employer] for pain related to catheter. Acute post-operative pain 08/12/20182017 Overview: History: post OHS Assessment: pain is well controlled with current regimen. Pt. requests [employer] continue. Does have itching when takes Oxycodone, but states all pain meds causes this for him (no rash noted) Plan: Continue current regimen with lidoderm patches, Tylenol, Oxycodone/Tramadol, and [employer]ER. Add Benadryl. Bowel regimen in place. Cardiac [...] Cardiac Surgical prep: N/A SIGNATURE: Belia Gardner APRN.MANIFEST CLERK CHECKED BY: DATE of SERVICE: 08/11/2018 TIME of SERVICE: 5:09 PM Ascending aortic aneurysm 2017 Dilated aortic root 08/15/2018 documented as of this encounter (statuses as of 04/12/2022) [facility] History of Past illness Narrative* Problem [...] incident. Plan: Post-pull repeat CXR ipending. Continue [employer]ER for pain related to catheter. Acute post-operative pain 08/12/20182017 Overview: History: post OHS Assessment: pain is well controlled with current regimen. Pt. requests [employer] continue. Does have itching when takes Oxycodone, but states all pain meds causes this for him (no rash noted) Plan: Continue current regimen with lidoderm patches, Tylenol, Oxycodone/Tramadol, and [employer]ER. Add Benadryl. Bowel regimen in place. Cardiac [...] Cardiac Surgical prep: N/A SIGNATURE: Belia Gardner APRN.MANIFEST CLERK CHECKED BY: DATE of SERVICE: 08/11/2018 TIME of SERVICE: 5:09 PM Ascending aortic aneurysm 2017 Dilated aortic root 08/15/2018 documented as of this encounter (statuses as of 08/10/2022) [facility] History of Past illness Narrative* Problem [...] incident. Plan: Post-pull repeat CXR ipending. Continue [employer]ER for pain related to catheter. Acute post-operative pain 08/12/20182017 Overview: History: post OHS Assessment: pain is well controlled with current regimen. Pt. requests [employer] continue. Does have itching when takes Oxycodone, but states all pain meds causes this for him (no rash noted) Plan: Continue current regimen with lidoderm patches, Tylenol, Oxycodone/Tramadol, and [employer]ER. Add Benadryl. Bowel regimen in place. Cardiac [...] of this encounter (statuses as of 08/15/2022) [facility] History of Past illness Narrative* Problem [...] incident. Plan: Post-pull repeat CXR ipending. Continue [employer]ER for pain related to catheter. Acute post-operative pain 08/12/20182017 Overview: History: post OHS Assessment: pain is well controlled with current regimen. Pt. requests [employer] continue. Does have itching when takes Oxycodone, but states all pain meds causes this for him (no rash noted) Plan: Continue current regimen with lidoderm patches, Tylenol, Oxycodone/Tramadol, and [employer]ER. Add Benadryl. Bowel regimen in place. Cardiac [...] of this encounter (statuses as of 10/15/2022) [facility] History of Past illness Narrative* Problem [...] incident. Plan: Post-pull repeat CXR ipending. Continue [employer]ER for pain related to catheter. Acute post-operative pain 08/12/20182017 Overview: History: post OHS Assessment: pain is well controlled with current regimen. Pt. requests [employer] continue. Does have itching when takes Oxycodone, but states all pain meds causes this for him (no rash noted) Plan: Continue current regimen with lidoderm patches, Tylenol, Oxycodone/Tramadol, and [employer]ER. Add Benadryl. Bowel regimen in place. Cardiac [...] No Cardiac Surgical prep: N/A SIGNATURE: Belia Gardnre APRN.CNP CHECKED BY: DATE of SERVICE: 08/11/2018 TIME of SERVICE: 5:09 PM Ascending aortic aneurysm 2017 Dilated aortic root 08/15/2018 documented as of this encounter (statuses as of 11/12/2022) [facility] History of Past illness Narrative* Problem [...] incident. Plan: Post-pull repeat CXR ipending. Continue [employer]ER for pain related to catheter. Acute post-operative pain 08/12/20182017 Overview: History: post OHS Assessment: pain is well controlled with current regimen. Pt. requests [employer] continue. Does have itching when takes Oxycodone, but states all pain meds causes this for him (no rash noted) Plan: Continue current regimen with lidoderm patches, Tylenol, Oxycodone/Tramadol, and [employer]ER. Add Benadryl. Bowel regimen in place. Cardiac [...] of this encounter (statuses as of 12/27/2022) [facility] History of Past illness Narrative* Problem [...] incident. Plan: Post-pull repeat CXR ipending. Continue [employer] OFF[employer]ER for pain related to catheter. Acute post-operative pain 08/12/20182017 Overview: History: post OHS Assessment: pain is well controlled with current regimen. Pt. requests [employer] continue. Does have itching when takes Oxycodone, but states all pain meds causes this for him (no rash noted) Plan: Continue current regimen with lidoderm patches, Tylenol, Oxycodone/Tramadol, and [employer]ER. Add Benadryl. Bowel regimen in place. Cardiac [...] Cardiac Surgical prep: N/A SIGNATURE: Belia Gardner APRN.MANIFEST CLERK CHECKED BY: DATE of SERVICE: 08/11/2018 TIME of SERVICE: 5:09 PM Ascending aortic aneurysm 2017 Dilated aortic root 08/15/2018 documented as of this encounter (statuses as of 01/01/2023) [facility] History of Past illness Narrative* Problem [...] incident. Plan: Post-pull repeat CXR ipending. Continue [employer]ER for pain related to catheter. Acute post-operative pain 08/12/20182017 Overview: History: post OHS Assessment: pain is well controlled with current regimen. Pt. requests [employer]ER continue. Does have itching when takes Oxycodone, but states all pain meds causes this for him (no rash noted) Plan: Continue current regimen with lidoderm patches, Tylenol, Oxycodone/Tramadol, and [employer]ER. Add Benadryl. Bowel regimen in place. Cardiac [...] of this encounter (statuses as of 01/09/2023) [facility] History of Past illness Narrative* Problem [...] incident. Plan: Post-pull repeat CXR ipending. Continue [employer] OFF[employer]ER for pain related to catheter. Acute post-operative pain 08/12/20182017 Overview: History: post OHS Assessment: pain is well controlled with current regimen. Pt. requests [employer]ER continue. Does have itching when takes Oxycodone, but states all pain meds causes this for him (no rash noted) Plan: Continue current regimen with lidoderm patches, Tylenol, Oxycodone/Tramadol, and [employer] OFFICER. Add Benadryl. Bowel regimen in place. Cardiac [...] Cardiac Surgical prep: N/A SIGNATURE: Belia Gardner APRN.MANIFEST CLERK CHECKED BY: DATE of SERVICE: 08/11/2018 TIME of SERVICE: 5:09 PM Ascending aortic aneurysm 2017 Dilated aortic root 08/15/2018 documented as of this encounter (statuses as of 01/12/2023) [facility] History of Past illness Narrative* Problem [...] incident. Plan: Post-pull repeat CXR ipending. Continue [employer] OFFICER for pain related to catheter. Acute post-operative pain 08/12/20182017 Overview: History: post OHS Assessment: pain is well controlled with current regimen. Pt. requests [employer]ICAL OFF[employer]ER continue. Does have itching when takes Oxycodone, but states all pain meds causes this for him (no rash noted) Plan: Continue current regimen with lidoderm patches, Tylenol, Oxycodone/Tramadol, and V[employer] MEDICAL OFFICER. Add Benadryl. Bowel regimen in place. Cardiac [...] of this encounter (statuses as of 01/12/2023) [facility] History of Past illness Narrative* Problem [...] incident. Plan: Post-pull repeat CXR ipending. Continue V[employer]ICAL OFFICER for pain related to catheter. Acute post-operative pain 08/12/20182017 Overview: History: post OHS Assessment: pain is well controlled with current regimen. Pt. requests V[employer]ICAL OFFICER continue. Does have itching when takes Oxycodone, but states all pain meds causes this for him (no rash noted) Plan: Continue current regimen with lidoderm patches, Tylenol, Oxycodone/Tramadol, and V[employer] MEDICAL OFFICER. Add Benadryl. Bowel regimen in place. Cardiac [...] Cardiac Surgical prep: N/A SIGNATURE: Belia Gardner APRN.MANIFEST CLERK CHECKED BY: DATE of SERVICE: 08/11/2018 TIME of SERVICE: 5:09 PM Ascending aortic aneurysm 2017 Dilated aortic root 08/15/2018 documented as of this encounter (statuses as of 02/06/2023) [facility] History of Past illness Narrative* Problem [...] incident. Plan: Post-pull repeat CXR ipending. Continue V[employer]ICAL OFFICER for pain related to catheter. Acute post-operative pain 08/12/20182017 Overview: History: post OHS Assessment: pain is well controlled with current regimen. Pt. requests V[employer]ICAL OFFICER continue. Does have itching when takes Oxycodone, but states all pain meds causes this for him (no rash noted) Plan: Continue current regimen with lidoderm patches, Tylenol, Oxycodone/Tramadol, and V[employer]ARY MEDICAL OFFICER. Add Benadryl. Bowel regimen in place. Cardiac [...] Cardiac Surgical prep: N/A SIGNATURE: Belia Gardner APRN.MANIFEST CLERK CHECKED BY: DATE of SERVICE: 08/11/2018 TIME of SERVICE: 5:09 PM Ascending aortic aneurysm 2017 Dilated aortic root 08/15/2018 documented as of this encounter (statuses as of 02/07/2023) [facility] History of Past illness Narrative* Problem [...] incident. Plan: Post-pull repeat CXR ipending. Continue V[employer]ICAL OFFICER for pain related to catheter. Acute post-operative pain 08/12/20182017 Overview: History: post OHS Assessment: pain is well controlled with current regimen. Pt. requests V[employer]ICAL OFFICER continue. Does have itching when takes Oxycodone, but states all pain meds causes this for him (no rash noted) Plan: Continue current regimen with lidoderm patches, Tylenol, Oxycodone/Tramadol, and V[employer] MEDICAL OFFICER. Add Benadryl. Bowel regimen in place. Cardiac [...] of this encounter (statuses as of 02/12/2023) [facility] History of Past illness Narrative* Problem [...] incident. Plan: Post-pull repeat CXR ipending. Continue V[employer] MEDICAL OFFICER for pain related to catheter. Acute post-operative pain 08/12/20182017 Overview: History: post OHS Assessment: pain is well controlled with current regimen. Pt. requests V[employer] MEDICAL OFFICER continue. Does have itching when takes Oxycodone, but states all pain meds causes this for him (no rash noted) Plan: Continue current regimen with lidoderm patches, Tylenol, Oxycodone/Tramadol, and V[employer]ARY MEDICAL OFFICER. Add Benadryl. Bowel regimen in place. Cardiac [...] Cardiac Surgical prep: N/A SIGNATURE: Belia Gardner APRN.MANIFEST CLERK CHECKED BY: DATE of SERVICE: 08/11/2018 TIME of SERVICE: 5:09 PM Ascending aortic aneurysm 2017 Dilated aortic root 08/15/2018 documented as of this encounter (statuses as of 03/13/2023) [facility] History of Past illness Narrative* Problem [...] incident. Plan: Post-pull repeat CXR ipending. Continue V[employer] MEDICAL OFFICER for pain related to catheter. Acute post-operative pain 08/12/2018 Overview: History: post OHS Assessment: pain is well controlled with current regimen. Pt. requests V[employer] MEDICAL OFFICER continue. Does have itching when takes Oxycodone, but states all pain meds causes this for him (no rash noted) Plan: Continue current regimen with lidoderm patches, Tylenol, Oxycodone/Tramadol, and V[employer]ER[employer]ARY MEDICAL OFFICER. Add Benadryl. Bowel regimen in place. Cardiac [...] Cardiac Surgical prep: N/A SIGNATURE: Belia Gardner APRN.MANIFEST CLERK CHECKED BY: DATE of SERVICE: 08/11/2018 TIME of SERVICE: 5:09 PM Ascending aortic aneurysm Dilated aortic root 08/15/20 18 documented as of this encounter (statuses as of 06/05/2023) [facility] History of Past illness Narrative* Problem [...] incident. Plan: Post-pull repeat CXR ipending. Continue V[employer]IN[employer] MEDICAL OFFICER for pain related to catheter. Acute post-operative pain 08/12/2018 Overview: History: post OHS Assessment: pain is well controlled with current regimen. Pt. requests V[employer] MEDICAL OFFICER continue. Does have itching when takes Oxycodone, but states all pain meds causes this for him (no rash noted) Plan: Continue current regimen with lidoderm patches, Tylenol, Oxycodone/Tramadol, and V[employer]ARY MEDICAL OFFICER. Add Benadryl. Bowel regimen in place. Cardiac [...] Cardiac Surgical prep: N/A SIGNATURE: Belia Gardner APRN.MANIFEST CLERK CHECKED BY: DATE of SERVICE: 08/11/2018 TIME of SERVICE: 5:09 PM Ascending aortic aneurysm Dilated aortic root 08/15/20 18 documented as of this encounter (statuses as of 07/08/2023) [facility] History of Past illness Narrative* Problem [...] incident. Plan: Post-pull repeat CXR ipending. Continue V[employer] MEDICAL OFFICER for pain related to catheter. Acute post-operative pain 08/12/2018 Overview: History: post OHS Assessment: pain is well controlled with current regimen. Pt. requests V[employer] MEDICAL OFFICER continue. Does have itching when takes Oxycodone, but states all pain meds causes this for him (no rash noted) Plan: Continue current regimen with lidoderm patches, Tylenol, Oxycodone/Tramadol, and V[employer]ARY MEDICAL OFFICER. Add Benadryl. Bowel regimen in place. Cardiac [...] Cardiac Surgical prep: N/A SIGNATURE: Belia Gardner APRN.MANIFEST CLERK CHECKED BY: DATE of SERVICE: 08/11/2018 TIME of SERVICE: 5:09 PM Ascending aortic aneurysm Dilated aortic root 08/15/20 18 documented as of this encounter (statuses as of 07/15/2023) [facility] History of Past illness Narrative* Problem [...] incident. Plan: Post-pull repeat CXR ipending. Continue V[employer] MEDICAL OFFICER for pain related to catheter. Acute post-operative pain 08/12/2018 Overview: History: post OHS Assessment: pain is well controlled with current regimen. Pt. requests V[employer] MEDICAL OFFICER continue. Does have itching when takes Oxycodone, but states all pain meds causes this for him (no rash noted) Plan: Continue current regimen with lidoderm patches, Tylenol, Oxycodone/Tramadol, and VET[employer]INARY MEDICAL OFFICER. Add Benadryl. Bowel regimen in place. Cardiac [...] Cardiac Surgical prep: N/A SIGNATURE: Belia Gardner APRN.MANIFEST CLERK CHECKED BY: DATE of SERVICE: 08/11/2018 TIME of SERVICE: 5:09 PM Ascending aortic aneurysm Dilated aortic root 08/15/20 18 documented as of this encounter (statuses as of 08/13/2023) [facility] History of Past illness Narrative* Problem [...] incident. Plan: Post-pull repeat CXR ipending. Continue V[employer]IN[employer] MEDICAL OFFICER for pain related to catheter. Acute post-operative pain 08/12/2018 Overview: History: post OHS Assessment: pain is well controlled with current regimen. Pt. requests V[employer] MEDICAL OFFICER continue. Does have itching when takes Oxycodone, but states all pain meds causes this for him (no rash noted) Plan: Continue current regimen with lidoderm patches, Tylenol, Oxycodone/Tramadol, and V[employer]ARY MEDICAL OFFICER. Add Benadryl. Bowel regimen in place. Cardiac [...] of this encounter (statuses as of 08/19/2023) [facility] History of Past illness Narrative* Problem [...] incident. Plan: Post-pull repeat CXR ipending. Continue V[employer]IN[employer] MEDICAL OFFICER for pain related to catheter. Acute post-operative pain 08/12/2018 Overview: History: post OHS Assessment: pain is well controlled with current regimen. Pt. requests V[employer] MEDICAL OFFICER continue. Does have itching when takes Oxycodone, but states all pain meds causes this for him (no rash noted) Plan: Continue current regimen with lidoderm patches, Tylenol, Oxycodone/Tramadol, and V[employer]INARY MEDICAL OFFICER. Add Benadryl. Bowel regimen in place. Cardiac [...] of this encounter (statuses as of 11/13/2023) [facility] History of Past illness Narrative* Problem [...] incident. Plan: Post-pull repeat CXR ipending. Continue VETERINARY MEDICAL OFFICER for pain related to catheter. Acute post-operative pain 08/12/2018 Overview: History: post OHS Assessment: pain is well controlled with current regimen. Pt. requests V[employer] MEDICAL OFFICER continue. Does have itching when takes Oxycodone, but states all pain meds causes this for him (no rash noted) Plan: Continue current regimen with lidoderm patches, Tylenol, Oxycodone/Tramadol, and VETERINARY MEDICAL OFFICER. Add Benadryl. Bowel regimen in place. Cardiac [...] Cardiac Surgical prep: N/A SIGNATURE: Belia Gardner APRN.MANIFEST CLERK CHECKED BY: DATE of SERVICE: 08/11/2018 TIME of SERVICE: 5:09 PM Ascending aortic aneurysm Dilated aortic root 08/15/20 18 documented as of this encounter (statuses as of 02/11/2024) [facility] No data available for this section [facility] Future Appointments Appointment Date:03/29/2023 [...] Location:.[place]ICAL [place] Appointment Type:PT Re-Eval 30 (FT) [facility]ial [facility]- Primary [facility] Diagnosis S/P AVR- Primary Heart valve replaced by other means Essential (primary) hypertension Unspecified essential hypertension [facility] Diagnosis Essential hypertension Unspecified essential hypertension [facility] Diagnosis Essential hypertension Unspecified essential hypertension [facility] Diagnosis Chest pain, unspecified type- Primary [facility] Diagnosis S/P AVR- Primary Heart valve replaced by other means Essential hypertension Unspecified essential hypertension Chest discomfort Other chest pain [facility] Diagnosis Physical deconditioning- Primary Debility, unspecified Elevated serum creatinine Other nonspecific findings on examination of blood S/P AVR Heart valve replaced by other means [facility] Diagnosis Elevated serum creatinine- Primary Other [...] Dizziness and giddiness [facility] Diagnosis S/P AVR- Primary Heart valve [...] Other specified counseling [facility] Diagnosis Hyperlipidemia, unspecified hyperlipidemia type- Primary S/P ascending aortic replacement Blood vessel replaced by other means Nonrheumatic aortic valve insufficiency Aortic valve disorders [facility] Diagnosis S/P right rotator cuff repair- Primary Traumatic complete tear of right rotator cuff, initial encounter [facility]* Diagnosis Essential hypertension Unspecified essential hypertension [facility] Diagnosis Hyperlipidemia, unspecified hyperlipidemia type- Primary Essential hypertension Unspecified essential hypertension S/P AVR Heart valve replaced by other means [facility] Diagnosis Essential hypertension Unspecified essential hypertension [facility] Hyperlipidemia, unspecified hyperlipidemia type- Primary Essential hypertension Unspecified essential hypertension S/P AVR Heart valve replaced by other means documented in this encounter [facility] Discharge instructions No data available for this section [facility] No data available for this section [facility] Diagnostic Procedure Only (Routine) - Pending Review Specialty Diagnoses / Procedures Referred By Sashaac t Referred To Contact [facility] Diagnoses Precordial pain Procedures NM CARDIAC PERF STRESS/EXERCISE MYOCARDIAL SPECT MULTIPLE STUDIES Todd Nunn MD [address] [place] [address] [facility] Functional [facility] [address] [place] [address] Referral ID Status Reason Start Date Expiration Date Visits Requested Visits Authorized [id number] Pending Review Auto-Generat ed Referral 04/11/2022 04/26/2023 1 1 [facility] for referral (narrative)* Diagnostic Procedure Only (Routine) - Closed Specialty Diagnoses / Procedures Referred By Darnell collins Referred To Contact [facility]AGING Diagnoses Precordial pain Procedures NM CARDIAC PERF STRESS/EXERCISE MYOCARDIAL SPECT MULTIPLE STUDIES Todd Nunn MD [address] [place] [address] Molecular [facility] Functional Imaging [address] [place] [address] Referral ID Status Reason Start Date Expiration Date V isits Requested Visits Authorized [id number] Closed Auto-Generate d Referral 04/11/2022 04/26/2023 1 1 [facility] for referral (narrative)* Outpatient Procedure (Routine) - Authorized Specialty Diagnoses / Procedures Referred By Contac t Referred To Contact [facility] Diagnoses S/P AVR Procedures ECHO ECHO TTHRC R-T 2D W/WOM-MODE COMPL SPEC&COLR D Juan F Portillo MD [address] [place] [address] [address] Referral ID Status Reason Start Date Expiration Date Visits Requested Visits Authorized [id number] Authorized Auto-Generat ed Referral 08/15/2022 08/15/2023 1 1 [facility] for referral (narrative)* Diagnostic Procedure Only (Routine) - Authorized Specialty Diagnoses / Procedures Referred By Darnell t Referred To Contact [facility] FUNCTION[facility]AG[facility] Diagnoses Chest pain, unspecified type Procedures NM CARDIAC PERF STRESS/PHARM MYOCARDIAL [place] [address] [place] [address] Molecular & Functional Imaging [address] [place] [address] Referral ID Status Reason Start Date Expiration Date Visits Requested Visits Authorized [id number] Authorized Auto-Generat ed Referral 01/08/2023 02/06/2024 1 1 [facility] for referral (narrative)* Outpatient Procedure (Routine) - Authorized Specialty Diagnoses / Procedures [facility] Diagnoses Chest pain, unspecified type Procedures ECG COMPLETE ECG ROUTINE ECG W/LEAST 12 LDS W/I&R Juan F Portillo MD [address] [place] [address] [address] Referral ID Status Reason Start Date Expiration Date Visits Requested Visits Authorized [id number] Authorized Auto-Generat ed Referral 01/08/2023 01/08/2024 1 1 [facility] Outpatient Procedure (Routine) - Pending Review Specialty Diagnoses / Procedures Referred By Contac t Referred To Contact [facility] Diagnoses S/P ascending aortic replacement Nonrheumatic aortic valve insufficiency Procedures ECHO ECHO TTHRC R-T 2D W/WOM-MODE COMPL SPEC&COLR D Clarisse Gee APRN.CNP [address] [place] [address] [facility] [address] [place] [address] Referral ID Status Reason Start Date Expiration Date Visits Requested Visits Authorized [id number] Pending Review Auto-Generat ed Referral 03/13/2023 03/12/2024 1 1 [facility] Advance Directives No Advanced Directives Records FoundDocuments on File Type Date Recorded Patient Manager Generation Expl anation Advance Directive(s) 08/11/2018 5:53 PM Advance Directive(s) 08/11/2018 5:51 PM Advance Directive(s) 06/02/2018 6:58 AM Documents on File Type Date Recorded Patient Manager Generation Expl anation Advance Directive(s) 08/11/2018 5:53 PM Advance Directive(s) 08/11/2018 5:51 PM Advance Directive(s) 06/02/2018 6:58 AM Documents on File Type Date Recorded Patient Manager Generation Expl anation Advance Directive(s) 08/11/2018 5:51 PM Documents on File Type Date Recorded Patient Manager Generation Expl anation Advance Directive(s) 08/11/2018 5:51 PM Reason for Referral Specialty Diagnoses / Procedures Referred By Contac t Referred To Contact [facility] [place] Procedures CARDIOVASCULAR MEDICINE OP FOLLOW UP APPT Abeba Harrell APRN.MANIFEST CLERK [address] [place] [address] [facility] [address] [place] [address] Referral ID Status Reason Start Date Expiration Date Visits Requested Visits Authorized [id number] Ref Not Required PCP Requested Referral 08/13/2024 02/10/2025 1 1 Specialty Diagnoses / Procedures Referred By Contac t Referred To Contact [facility] Diagnoses S/P right rotator cuff repair Traumatic complete tear of right rotator cuff, initial encounter Procedures CONSULT TO PHYSICAL THERAPY PHYSICAL THERAPY EVALUATION HIGH COMPLEX 45 MINS Reji Weems MD [address] [place] [address] [facility] [address] [place] [address] Referral ID Status Reason Start Date Expiration Date Visits Requested Visits Authorized [id number] Authorized PCP Requested Referral Auto-Generate d Referral 07/08/2023 07/07/2024 99 99 Specialty Diagnoses / Procedures Referred By Contac t Referred To Contact Diagnoses Physical deconditioning Procedures CARD PREV EXERCISE PRESCRIPTION OFFICE/OUTPATIENT [facility] MDM 60-74 MINUTES Juan F Portillo MD [address] [place] [address] Referral ID Status Reason Start Date Expiration Date Visits Requested Visits Authorized [id number] Authorized PCP Requested Referral 02/06/2023 02/06/2024 1 [...] or prosecute any alcohol or drug abuse patient.[facility] the event this information is protected by the Federal Confidentiality of Alcohol and Drug Abuse Patient Records regulations: The Federal rules restrict any use of the information to criminally investigate or prosecute any alcohol or drug abuse patient.[facility] HospitalIn the event this information is protected by the Federal Confidentiality of Alcohol and Drug Abuse Patient Records regulations: The Federal rules restrict any use of the information to criminally investigate or prosecute any alcohol or drug abuse patient.[facility] HospitalIn the event this information is protected by the Federal Confidentiality of Alcohol and Drug Abuse Patient Records regulations: The Federal rules restrict any use of the information to criminally investigate or prosecute any alcohol or drug abuse patient.[facility] HospitalIn the event this information is protected by the Federal Confidentiality of Alcohol and Drug Abuse Patient Records regulations: The Federal rules restrict any use of the information to criminally investigate or prosecute any alcohol or drug abuse patient.[facility] HospitalIn the event this information is protected by the Federal Confidentiality of Alcohol and Drug Abuse Patient Records regulations: The Federal rules restrict any use of the information to criminally investigate or prosecute any alcohol or drug abuse patient.[facility] HospitalIn the event this information is protected by the Federal Confidentiality of Alcohol and Drug Abuse Patient Records regulations: The Federal rules restrict any use of the information to criminally investigate or prosecute any alcohol or drug abuse patient.[facility] HospitalIn the event this information is protected by the Federal Confidentiality of Alcohol and Drug Abuse Patient Records regulations: The Federal rules restrict any use of the information to criminally investigate or prosecute any alcohol or drug abuse patient.[facility] HospitalIn the event this information is protected by the Federal Confidentiality of Alcohol and Drug Abuse Patient Records regulations: The Federal rules restrict any use of the information to criminally investigate or prosecute any alcohol or drug abuse patient.[facility] HospitalIn the event this information is protected by the Federal Confidentiality of Alcohol and Drug Abuse Patient Records regulations: The Federal rules restrict any use of the information to criminally investigate or prosecute any alcohol or drug abuse patient.[facility] HospitalIn the event this information is protected by the Federal Confidentiality of Alcohol and Drug Abuse Patient Records regulations: The Federal rules restrict any use of the information to criminally investigate or prosecute any alcohol or drug abuse patient.[facility] HospitalIn the event this information is protected by the Federal Confidentiality of Alcohol and Drug Abuse Patient Records regulations: The Federal rules restrict any use of the information to criminally investigate or prosecute any alcohol or drug abuse patient.[facility] HospitalIn the event this information is protected by the Federal Confidentiality of Alcohol and Drug Abuse Patient Records regulations: The Federal rules restrict any use of the information to criminally investigate or prosecute any alcohol or drug abuse patient.[facility] HospitalIn the event this information is protected by the Federal Confidentiality of Alcohol and Drug Abuse Patient Records regulations: The Federal rules restrict any use of the information to criminally investigate or prosecute any alcohol or drug abuse patient.[facility] HospitalIn the event this information is protected by the Federal Confidentiality of Alcohol and Drug Abuse Patient Records regulations: The Federal rules restrict any use of the information to criminally investigate or prosecute any alcohol or drug abuse patient.[facility] HospitalIn the event this information is protected by the Federal Confidentiality of Alcohol and Drug Abuse Patient Records regulations: The Federal rules restrict any use of the information to criminally investigate or prosecute any alcohol or drug abuse patient.[facility] HospitalIn the event this information is protected by the Federal Confidentiality of Alcohol and Drug Abuse Patient Records regulations: The Federal rules restrict any use of the information to criminally investigate or prosecute any alcohol or drug abuse patient.[facility] HospitalIn the event this information is protected by the Federal Confidentiality of Alcohol and Drug Abuse Patient Records regulations: The Federal rules restrict any use of the information to criminally investigate or prosecute any alcohol or drug abuse patient.[facility] HospitalIn the event this information is protected by the Federal Confidentiality of Alcohol and Drug Abuse Patient Records regulations: The Federal rules restrict any use of the information to criminally investigate or prosecute any alcohol or drug abuse patient.[facility] HospitalIn the event this information is protected by the Federal Confidentiality of Alcohol and Drug Abuse Patient Records regulations: The Federal rules restrict any use of the information to criminally investigate or prosecute any alcohol or drug abuse patient.[facility] HospitalIn the event this information is protected by the Federal Confidentiality of Alcohol and Drug Abuse Patient Records regulations: The Federal rules restrict any use of the information to criminally investigate or prosecute any alcohol or drug abuse patient.[facility] HospitalIn the event this information is protected by the Federal Confidentiality of Alcohol and Drug Abuse Patient Records regulations: The Federal rules restrict any use of the information to criminally investigate or prosecute any alcohol or drug abuse patient.[facility] HospitalIn the event this information is protected by the Federal Confidentiality of Alcohol and Drug Abuse Patient Records regulations: The Federal rules restrict any use of the information to criminally investigate or prosecute any alcohol or drug abuse patient.[facility] HospitalIn the event this information is protected by the Federal Confidentiality of Alcohol and Drug Abuse Patient Records regulations: The Federal rules restrict any use of the information to criminally investigate or prosecute any alcohol or drug abuse patient.[facility] HospitalIn the event this information is protected by the Federal Confidentiality of Alcohol and Drug Abuse Patient Records regulations: The Federal rules restrict any use of the information to criminally investigate or prosecute any alcohol or drug abuse patient.[facility] Reason for Visit (unrecogniz ed section and content) Reason Onset Date Comments Refill Request 03/20/2022 Reason Comments Radiology NM Specialty Diagnoses / Procedures Referred By Contac t Referred To Contact [facility] Diagnoses Precordial pain Procedures NM CARDIAC PERF STRESS/EXERCISE MYOCARDIAL SPECT MULTIPLE STUDIES Todd Nunn MD [address] [place] [address] [facility] [address] [place] [address] Referral ID Status Reason Start Date Expiration Date V isits Requested Visits Authorized [id number] Closed Auto-Generate d Referral 04/11/2022 04/26/2023 1 [...] MYOCARDIAL SPECT MULTIPLE STUDIES Todd Nunn MD [address] [place] [address] [facility] [address] [place] [address] Referral ID Status Reason Start Date Expiration Date V isits Requested Visits Authorized [id number] Closed Auto-Generate d Referral 01/08/2023 02/06/2024 1 1 Reason Comments Follow Up Reason Comments Exercise Prescription Specialty Diagnoses / Procedures Referred By Contac t Referred To Contact Diagnoses Physical deconditioning Procedures CARD PREV EXERCISE PRESCRIPTION OFFICE/OUTPATIENT NEW HIGH MDM 60-74 MINUTES Juan F Portillo MD [address] [place] [address] Referral ID Status Reason Start Date Expiration Date V isits Requested Visits Authorized [id number] Closed PCP Requested Referral 02/06/2023 02/06/2024 1 1 Reason Comments Patient Question Any additional testi ng? Reason Comments Medication Question Reason Comments New Pain Numbness Reason Onset Date Comments Refill Request 07/15/2023 Reason Comments Hyperlipidemia Reason Onset Date Comments Refill Request 11/11/2023 Reason Comments Hyperlipidemia Reason Comments Patient Question Care Teams (unrecognized sec tion and content) Accountant Budget Relationship Specialty Start Date End Date Onel Isaacs MD [address] [place] [address] PCP - General 03/07/01 Kenyatta Dumont Referring Cardiology 05/29/18 Juan F Portillo MD Primary Staff Physician Cardiology 05/10/20 Accountant Budget Relationship Specialty Start Date End Date Onel Isaacs MD [address] [place] [address] PCP - General 03/07/01 Kenyatta Dumont Referring Cardiology 05/29/18 Juan F Portillo MD Primary Staff Physician Cardiology 05/10/20 Accountant Budget Relationship Specialty Start Date End Date Onel Isaacs MD [address] [place] [facility] [place] [address] PCP - General 03/07/01 Kenyatta Dumont Referring Cardiology 05/29/18 Juan F Portillo MD Primary Staff Physician Cardiology 05/10/20 Accountant Budget Relationship Specialty Start Date End Date Onel Isaacs MD [address] [place] [facility] [place] [address] PCP - General 03/07/01 Kenyatta Dumont Referring Cardiology 05/29/18 Juan F Portillo MD Primary Staff Physician Cardiology 05/10/20 Accountant Budget Relationship Specialty Start Date End Date Onel Isaacs MD [address] [place] [facility] [place] [address] PCP - General 03/07/01 Kenyatta Dumont Referring Cardiology 05/29/18 Juan F Portillo MD Primary Staff Physician Cardiology 05/10/20 Accountant Budget Relationship Specialty Start Date End Date Onel Isaacs MD [address] [place] [facility] [place] [address] PCP - General 03/07/01 Kenyatta Dumont [address] [place] [facility] [place] [address] Referring Cardiology 05/29/18 Juan F Portillo MD [address] [place] [facility] [place] [address] Primary Staff Physician Cardiology 05/10/20 Accountant Budget Relationship Specialty Start Date End Date Onel Isaacs MD [address] [place] [address] PCP - General 03/07/01 Rayray Dumonttham [address] [place] [address] Referring Cardiology 05/29/18 Juan F Portillo MD [address] [place] [address] Primary Staff Physician Cardiology 05/10/20 Accountant Budget Relationship Specialty Start Date End Date Onel Isaacs MD [address] [facility] [address] PCP - General 03/07/01 Rayray Dumontam [address] [place] [address] Referring Cardiology 05/29/18 Juan F Portillo MD [address] [place] [address] Primary Staff Physician Cardiology 05/10/20 Accountant Budget Relationship Specialty Start Date End Date Onel Isaacs MD [address] [place] [address] PCP - General 03/07/01 Rayray Dumonttham [address] [place] [address] Referring Cardiology 05/29/18 Juan F Portillo MD [address] [place] [address] Primary Staff Physician Cardiology 05/10/20 Accountant Budget Relationship Specialty Start Date End Date Onel Isaacs MD [address] [place] [address] PCP - General 03/07/01 Garciagilma Rayraytham [address] [place] [address] Referring Cardiology 05/29/18 Juan F Portillo MD [address] [place] [address] Primary Staff Physician Cardiology 05/10/20 Onel Isaacs MD [address] [place] [address] Referring Family Medicine 01/08/23 Accountant Budget Relationship Specialty Start Date End Date Onel Isaacs MD [address] [place] [address] PCP - General 03/07/01 Jenna Dumontam [address] [place] [address] Referring Cardiology 05/29/18 Juan F Portillo MD [address] [place] [address] Primary Staff Physician Cardiology 05/10/20 Onel Isaacs MD [address] [place] [address] Referring Family Medicine 01/08/23 Accountant Budget Relationship Specialty Start Date End Date Onel Isaacs MD [address] [place] [address] PCP - General 03/07/01 Tim Rayraytham [address] [place] [address] Referring Cardiology 05/29/18 Juan F Portillo MD [address] [place] [address] Primary Staff Physician Cardiology 05/10/20 Onel Isaacs MD [address] [place] [address] Referring Family Medicine 01/08/23 Accountant Budget Relationship Specialty Start Date End Date Onel Isaacs MD [address] [place] [address] PCP - General 03/07/01 Jenna Dumontam [address] [place] [address] Referring Cardiology 05/29/18 Juan F Portillo MD [address] [place] [address] Primary Staff Physician Cardiology 05/10/20 Onel Isaacs MD [address] [place] [address] Referring Family Medicine 01/08/23 Accountant Budget Relationship Specialty Start Date End Date Onel Isaacs MD [address] [place] [address] PCP - General 03/07/01 Tim Rayraymatt [address] [place] [address] Referring Cardiology 05/29/18 Juan F Portillo MD [address] [facility] [place] [address] Primary Staff Physician Cardiology 05/10/20 Onel Isaacs MD [address] [place] [address] Referring Family Medicine 01/08/23 Accountant Budget Relationship Specialty Start Date End Date Onel Isaacs MD [address] [place] [address] PCP - General 03/07/01 Kenyatta Dumont [address] [place] [address] Referring Cardiology 05/29/18 Juan F Portillo MD [address] [place] [address] Primary Staff Physician Cardiology 05/10/20 Onel Isaacs MD [address] [place] [address] Referring Family Medicine 01/08/23 Accountant Budget Relationship Specialty Start Date End Date Onel Isaacs MD [address] [place] [address] PCP - General 03/07/01 Kenyatta Dumont [address] [place] [address] Referring Cardiology 05/29/18 Juan F Portillo MD [address] [place] [address] Primary Staff Physician Cardiology 05/10/20 Onel Isaacs MD [address] [place] [address] Referring Family Medicine 01/08/23 Accountant Budget Relationship Specialty Start Date End Date Onel Isaacs MD [address] [place] [address] PCP - General 03/07/01 Kenyatta Dumont [address] [place] [address] Referring Cardiology 05/29/18 Juan F Portillo MD [address] [facility] [place] [address] Primary Staff Physician Cardiology 05/10/20 Onel Isaacs MD [address] [place] [address] Referring Family Medicine 01/08/23 Accountant Budget Relationship Specialty Start Date End Date Onel Isaacs MD [address] [place] [address] PCP - General 03/07/01 Kenyatta Dumont [address] [place] [address] Referring Cardiology 05/29/18 Juan F Portillo MD [address] [place] [address] Primary Staff Physician Cardiology 05/10/20 Onel Isaacs MD [address] [place] [address] Referring Family Medicine 01/08/23 Onel Isaacs MD [address] [place] [address] Referring Family Medicine 06/19/23 Accountant Budget Relationship Specialty Start Date End Date Onel Isaacs MD [address] [place] [address] PCP - General 03/07/01 Kenyatta Dumont [address] [place] [address] Referring Cardiology 05/29/18 Juan F Portillo MD [address] [place] [address] Primary Staff Physician Cardiology 05/10/20 Onel Isaacs MD [address] [place] [address] Referring Family Medicine 01/08/23 Onel Isaacs MD [address] [place] [address] Referring Family Medicine 06/19/23 Accountant Budget Relationship Specialty Start Date End Date Onel Isaacs MD [address] [place] [address] PCP - General 03/07/01 Kenyatta Dumont [address] [place] [address] Referring Cardiology 05/29/18 Juan F Portillo MD [address] [place] [address] Primary Staff Physician Cardiology 05/10/20 Onel Isaacs MD [address] [facility] [place] [address] Referring Family Medicine 01/08/23 Onel Isaacs MD [address] [facility] [place] [address] Referring Family Medicine 06/19/23 Accountant Budget Relationship Specialty Start Date End Date Onel Isaacs MD [address] [facility] [place] [address] PCP - General 03/07/01 Kenyatta Dumont [address] [facility] [place] [address] Referring Cardiology 05/29/18 Juan F Portillo MD [address] [facility] [place] [address] Primary Staff Physician Cardiology 05/10/20 Onel Isaacs MD [address] [facility] [place] [address] Referring Family Medicine 01/08/23 Onel Isaacs MD [address] [facility] [place] [address] Referring Family Medicine 06/19/23 Accountant Budget Relationship Specialty Start Date End Date Onel Isaacs MD [address] [facility] [place] [address] PCP - General 03/07/01 Kenyatta Dumont [address] [facility] [place] [address] Referring Cardiology 05/29/18 Juan F Portillo MD [address] [facility] [place] [address] Primary Staff Physician Cardiology 05/10/20 Onel Isaacs MD [address] [facility] [place] [address] Referring Family Medicine 01/08/23 Onel Isaacs MD [address] [facility] [place] [address] Referring Family Medicine 06/19/23 Accountant Budget Relationship Specialty Start Date End Date Onel Isaacs MD [address] [facility] [address] PCP - General 03/07/01 Kenyatta Dumont [address] [facility] [address] Referring Cardiology 05/29/18 Juan F Portillo MD [address] [facility] [address] Primary Staff Physician Cardiology 05/10/20 Onel Isaacs MD [address] [place] [address] Referring Family Medicine 01/08/23 Onel Isaacs MD [address] [place] [address] Referring Family Medicine 06/19/23 Accountant Budget Relationship Specialty Start Date End Date Onel Isaacs MD [address] [facility] [place] [address] PCP - General 03/07/01 Kenyatta Dumont [address] [facility] [place] [address] Referring Cardiology 05/29/18 JuanF Portillo MD [address] [place] [facility] [place] [address] Primary Staff Physician Cardiology 05/10/20 Onel Isaacs MD [address] [place] [facility] [place] [address] Referring Family Medicine 01/08/23 Onel Isaacs MD [facility] [place] [facility] [place] [address] Referring Family Medicine 06/19/23 (unrecognized sect ion and content) No Status Records FoundNo Status Records Found INFORMATION SOURCE (unrecogn ized section and content) DATE CREATED AUTHOR 05/28/2024 [facility] DATE CREATED AUTHOR AUTHOR'S ORGANIZ ATION 08/16/2024 [facility] FOR RECORDS PERTAINING TO PATIENTS WHO [...] BE BASED ON THE PRIMARY CLINICAL RECORDS. [employer] provides no warranty or guarantee of the accuracy or completeness of information in this document.
[2024-10-01 12:36] LABS: Basophils Percent Auto 0.5 % (0.2-2.0); Eosinophils Absolute Auto 0.1 10^3/uL (0.0-0.7); Hematocrit 44.4 % (42.0-54.0); Hemoglobin 13.7 g/dL (14.0-18.0); Immature Granulocytes Abs Auto 0.02 10^3/uL (0.00-0.03); Immature Granulocytes Pct Auto 0.3 % (0.0-0.5); Lymphocytes Absolute Auto 2.4 10^3/uL (1.2-3.8); Lymphocytes Percent Auto 38.3 % (20.5-60.0); Mean Corpuscular HGB Conc 30.9 g/dL (29.9-35.2); Mean Corpuscular Volume 84.4 fL (80.0-94.0); Mean Platelet Volume 10.5 fL (9.5-13.5); Monocytes Absolute Auto 0.4 10^3/uL (0.3-0.8); Monocytes Percent Auto 6.1 % (1.7-12.0); Neutrophils Absolute Auto 3.4 10^3/uL (1.4-6.5); Neutrophils Percent Auto 53.8 % (43.0-75.0); Platelet Count 144 10^3/uL (150-450); Red Blood Count 5.26 10^6/uL (4.70-6.10); Red Cell Distribution Width 16.4 % (11.0-15.0); White Blood Count 6.3 10^3/uL (4.0-11.0)
== END 2024-10-01 12:15 | disposition home or self-care (01) ==
LOC: LAB 12:16
PROVIDERS: PCP Family Medicine; Visit Provider Family Medicine
DX: D64.9 Anemia, unspecified (principal); R79.89 Other specified abnormal findings of blood chemistry; R53.83 Other fatigue
CPT/HCPCS: 36415; 82728; 83540; 85025

== ENCOUNTER 2024-11-16 15:29 | Outpatient (OUT) | payer MEDICARE, OTHER, SELFPAY ==
--- NOTE | 2024-11-16 15:34 | XR_ITS ---
The [address] [address] Patient Name: DEBORAH BARROW MRN: [id number] date: 1945 Sex: M Assigned Patient Location: [facility] Current Patient Location: Accession/Order Number: [id number] Exam Date: 11/16/2024 15:45 Report Date: 11/19/2024 11:32 At the request of: ONEL ISAACS Procedure: XR hip RT min 2V PROCEDURE: XR hip RT min 2V HISTORY: Hip Osteoarthritis COMPARISON: None. FINDINGS: BONES:No fracture, acute abnormality, or significant arthropathy. SOFT TISSUES:No visible soft tissue swelling. EFFUSION:None visible. OTHER: Negative. XR/XR hip RT min 2V IMPRESSION: 1. No acute bone abnormality or significant degenerative changes of the right hip. Electronically authenticated by: JACOBO AUGUSTIN Date: 11/19/2024 11:32
== END 2024-11-16 15:30 | disposition home or self-care (01) ==
LOC: RAD 15:30
PROVIDERS: PCP Family Medicine; Visit Provider Family Medicine
DX: M16.9 Osteoarthritis of hip, unspecified (principal)
CPT/HCPCS: 73502

== ENCOUNTER 2024-11-26 10:45 | Outpatient (RCR) | payer MEDICARE, OTHER, SELFPAY | END 2024-11-27 08:13 | disposition home or self-care (01) | LOC: PT 10:45 | PROVIDERS: PCP Family Medicine; Visit Provider Family Medicine | DX: M16.9 Osteoarthritis of hip, unspecified (principal) | CPT/HCPCS: 97110; 97112; 97162 ==

== ENCOUNTER 2024-12-23 17:19 | Outpatient (OUT) | payer MEDICARE, OTHER, SELFPAY ==
--- OUTSIDE RECORDS SUMMARY | 2024-12-23 17:25 | XMS_ITS | CCD ---
Author Organization [facility] Care Team Providers Care Quality Facilitator Name Role Phone Onel Isaacs Primary Care Physician Carmella Liao Unavailable Unavailable Laura Gates Unavailable Unavailable Katie Villatoro Unavailable Unavailable Onel Isaacs MD Primary Care Provider Ahmed, Rayraytham Unavailable Juan F Portillo MD Unavailable Onel [...] Unavailable Onel Isaacs MD Primary Care Provider Sarah SNIDER Attending Unavailable Hoy, Onel Referring Unavailable OSMANI, ABEBA Referring Unavailable HOY, ONEL M Primary Care Unavailable OSMANI, ABEBA Attending Unavailable HOY, ONEL M Primary Care Unavailable JUAN F PORTILLO Referring Unavailable OSMANI, ABEBA Attending Unavailable OSMANI, ABEBA Referring Unavailable HOY, ONEL M Primary Care Unavailable HOY, ONEL M Primary Care Unavailable SARAH HUITRON Attending Unavailable ALEXIS LOTT Referring Unavailable HOY, ONEL M Primary Care Unavailable ANGELES DECKER Attending Unavailable HOY, ONEL M Primary Care Unavailable OSMANI, ABEBA Referring Unavailable Allergies Allergy Classification Reported Allergen(s) Allergy Type Date of Onset Reaction(s) Facility (7 sources) Acetaminophen / HYDROcodone; Translations: [acetaminophen-hy drocodone] Drug Allergy 5 Unknown (qualifier value), Unknown [facility] (6 sources) Codeine; Translations: [codeine] Drug Allergy itching [facility] (20 sources) Lisinopril; Translations: [lisinopril] Drug Allergy 7 Cough [facility] (7 sources) Amoxicillin; Translations: [amoxicillin] Drug Allergy 5 Diarrhea (finding), Diarrhea [facility] (1 source) Acetaminophen / oxyCODONE; Translations: [Percocet 5/325] Drug Allergy [facility] Repository (1 source) Acetaminophen / HYDROcodone; Translations: [HYDROCODONE-ACET AMINOPHEN] Drug Allergy 5 [facility] Repository (2 sources) oxyCODONE; Translations: [OXYCODONE] Drug Allergy 3 Itching [facility] Repository Medications Current Medications Medication Drug Class(es) Dates Sig (Normalized) Sig (Original) acetaminophen 325 mg oral tablet (19 sources) Start: 09-09-2018 acetaminophen (TYLENOL) 325 mg tablet Take 650 mg by mouth as needed for pain. 09/09/2018 Active Start: 09-09-2018 take 650 mg [...] Take 65 mg by mouth once weekly 08/13/2023 Active Start: 08-13-2023 take 1 tablet by myesha th every week iron bisgly,ps-FA-B-C#12-succ 65 mg-65 m g -1,000 [...] oral tablet (20 sources) Macrolide Antimicrobial Start: azithromycin (ZITHROMAX) 500 mg tablet Take 1 tablet by mouth once daily. Take one tablet 60 minutes prior to procedure. 1 tablet 03/23/2022 Active Start: 02-21-2022 End: 03-20-2022 azithromycin (ZITHROMAX) 500 mg tablet Take 1 tablet by mouth once daily. Take one tablet 60 minutes prior to procedure. 1 tablet 0 02/21/2022 03/20/2022 Discontinued Comment on above: Take 1 tablet by [facility] once daily. Take one tablet 60 minutes prior to procedure. benoxinate hydrochloride 4 mg/ml / fluorescein sodium 3 mg/ml ophthalmic solution (1 source) Diagnostic Dye Start: 12-22-2024 End: 12-22-2024 fluorescein-benoxina te 0.3-0.4 % 1 Drop (FLURESS) calcium citrate/vitamin D3 (CALCIUM CITRATE + ORAL) (20 sources) calcium citrate/vitamin D3 (CALCIUM CITRATE + ORAL) Take by mouth twice daily. Pt takes 2 capsule by mouth twice per day. Active calcium citrate/ vitamin D3 (CALCIUM CITRATE [...] Take 1,000 Units by mouth twice daily. Active take 1 capsule by mouth once farhan ly Cholecalciferol, Vitamin D3, (D3-2000) 2,000 unit cap Take 1 capsule by mouth once daily. 0 Active Comment on above: Take 1 capsule by mo uth once daily. Take 1,000 Units by mouth twice daily. Co-Q10 (5 sources) Start: 09-09-2018 take 100 mg by mouth once daily Co-Q10 100 mg, Oral, Daily, Refills(s) 0, Prophylaxis Start Date: 09/09/18 Status: Ordered cyanocobalamin, vitamin B-12, (VITAMIN B-12 SUBLINGUAL) (20 sources) take 1 dose under the tongue once daily cyanocobalamin, vitamin B-12, (VITAMIN B-12 SUBLINGUAL) Dissolve 1 Dose under the tongue once daily. Active take 1 dose under th e tongue once daily cyanocobalamin, vitamin B-12, (VITAMIN B -12 SUBLINGUAL) Dissolve 1 Dose under the tongue once daily. 0 Active Comment on above: Dissolve 1 Dose unde r the tongue once daily. furosemide 20 mg oral tablet (3 sources) Loop Diuretic Start: 4 take 1 tablet by mouth once daily Lasix 20 mg Tab 20 mg = 1 tab(s), Oral, Daily, Refills(s) 0 Start Date: 08/10/24 Status: Ordered irbesartan 300 mg oral tablet (20 sources) Angiotensin 2 Receptor Xiao Start: 2 End: 4 take 1 tablet by mouth once [...] oral tablet (20 sources) beta-Adrenergic Xiao Start: 5 take 1 tablet by mouth once daily in the evening metoprolol succinate ER (TOPROL XL) 25 mg 24 hr tablet Take 1 tablet by mouth every evening. 90 tablet 3 12/08/2024 Active Start: 09-19-2021 End: 08-15-2022 take 1 tablet by mouth once daily metoprolol succinate ER (TOPROL XL) 50 mg 24 hr tablet Indications: Paroxysmal atrial fibrillation (HCC) Take 1 tablet by mouth once daily. 90 tablet 3 09/19/2021 08/15/2022 Discontinued Start: 08-28-2018 End: 12-01-2024 take 1 tablet by mouth once daily in the evening metoprolol succinate ER (TOPROL XL) 25 mg 24 hr tablet take 1 tablet by mouth every evening 90 tablet 3 08/19/2023 12/01/2024 Discontinued (Discontinued by another Health Care Provider) Comment on above: Take 1 tablet by myesha th once daily. Take 1 tablet by myesha th every evening. take 1 tablet by myesha th every evening MULTIVITAMIN ORAL (1 source) MULTIVITAMIN ORA L Take by mouth. Active Multivitamin preparation (1 source) Start: 08-10-2024 take 1 tablet by mouth once daily multivitamin 1 tab(s), Oral, Daily, Refill(s) 0 Start Date: 08/10/24 Status: Ordered multivitamin tablet (20 sources) Start: 04-12-2021 take 1 tablet by mouth once daily multivitamin tablet Take 1 tablet by mouth once daily. 04/12/2021 Active Start: 04-12-2021 take 1 tablet by myesha th once daily multivitamin tablet Take 1 tablet by mouth once daily. 0 04/12/2021 Active Comment on above: Take 1 tablet by myesha th once daily. Perez-her b no.310 (AIRBORNE EVERYDAY STRESS AWAY) 1,000 mg-200 mg-360 mg pwpk (15 sources) Start: 09-09-2018 take 360 mg by mouth once daily Brendanhe rb no.310 (AIRBORNE EVERYDAY STRESS AWAY) 1,000 mg-200 mg-360 mg pwpk Take by mouth. 09/09/2018 Active Start: 09-09-2018 Stan ne-herb no.310 (AIRBORNE EVERYDAY STRESS AWAY) 1,000 mg-200 mg-360 mg pwpk Take by mouth. 0 09/09/2018 Active Comment on above: Take by mouth. olopatadine 7 mg/ml ophthalmic solution (20 sources) Histamine-1 Receptor Inhibitor Start: 02-07-2022 take 1 drop(s) into the eye(s) twice daily olopatadine 0.7% ophthalmic solution 1 drop(s), Eye-Both, BID, Refill(s) 0, Itching Start Date: 02/07/22 Status: Ordered Start: 04-12-2021 olopatadine (P ATADAY TWICE DAILY RELIEF) 0.1 % ophthalmic solution Use 1 Drop in both eyes twice daily. 04/12/2021 Active Comment on above: Use 1 Drop in both e yes twice daily. OTC PRODUCT (20 sources) OTC PRODUCT 0.9% NaCl Sinus Rinse Active OTC PRODUCT once daily. OTC Force Factor take 3 tablet once per day Active OTC PRODUCT once daily. OTC Force Factor [...] NaCl (PF) 0.9% 10 mL injection (DEFINITY) phenylephrine hydrochloride 25 mg/ml ophthalmic solution (1 source) alpha-1 Adrenergic Agonist Start: 12-22-2024 End: 12-22-2024 PHENYLephrine 2.5 % 1 Drop (AK-DILATE, RACHEL-SYNEPHRINE) proparacaine hydrochloride 5 mg/ml ophthalmic solution (1 source) Local Anesthetic Start: 12-22-2024 End: 12-22-2024 proparacaine 0.5 % 1 Drop (ALCAINE) psyllium husk, bulk, 100 % powd (20 sources) psyllium husk, b ulk, 100 % powd 1 teaspoonful twice daily. Active psyllium husk, b ulk, 100 % powd 1 teaspoonful twice daily. 0 Active Comment on above: 1 teaspoonful twice daily. saw palmetto (1 source) Start: 09-09-2018 saw palmetto Oral, Daily, Refill(s) 0, Prophylaxis Start Date: 09/09/18 Status: Ordered Saw palmetto extract (3 sources) Start: 09-09-2018 saw palmetto Oral, Daily, Refill(s) 0, Prophylaxis Start Date: 09/09/18 Status: Ordered simvastatin 20 mg oral tablet (2 sources) HMG-CoA Reductase Inhibitor Start: 07-08-2024 simvastatin (ZOCOR) 20 mg tablet daily at bedtime. 07/08/2024 Active 125 ml sodium chloride 9 mg/ml prefilled [...] (SALINE MIST NASAL) Use in the nose. 08/28/2018 Active Start: 08-28-2018 sodium chlorid e (SALINE MIST [...] Ordered Start: 05-19-2019 [facility] needed for pain tiZANidine 4 mg Tab 4 mg = 1 tab(s), Oral, q8hr, PRN Spasm, Refills(s) 0, Muscle pain Start Date: 05/19/19 Status: Ordered Tolnaftate (20 sources) tolnaftate (FORM MATT 3 TOPICAL) Apply 1 application to affected area once daily. Active tolnaftate (FORM MATT 3 TOPICAL) Apply 1 application to affected area once daily. 0 Active Comment on above: Apply 1 application to affected area once daily. tropicamide 10 mg/ml ophthalmic solution (1 source) Anticholinergic Start: 12-22-19 End: 12-22-19 tropicamide 1 % 1 Drop (MYDRIACYL) ubidecarenone/vitami n E mixed (COQ10 SG 100 ORAL) (20 sources) take 1 capsule by mouth once daily ubidecarenone/vitam in E mixed (COQ10 SG 100 ORAL) Take 1 capsule by mouth once daily. Active take 1 capsule by mouth once farhan ly ubidecarenone/vitamin E mixed (COQ10 SG 100 ORAL) Take 1 capsule by mouth once daily. 0 Active Comment on above: Take 1 capsule by [facility] once daily. Vitamin B-12 5000 mcg sublingual tablet (1 source) Start: 08-10-2024 take 1 tablet under the tongue once daily Vitamin B-12 5000 mcg sublingual tablet 5,000 mcg = 1 tab(s), SubLingual, Daily, Refills(s) 0 Start Date: 08/10/24 Status: Ordered Vitamin D2 2000 intl units oral capsule (1 source) Start: 08-10-2024 take 1 capsule by mouth once daily Vitamin D2 2000 intl units oral capsule 50 mcg = 1 cap(s), Oral, Daily, cap(s), Refills(s) 0 Start Date: 08/10/24 Status: Ordered Vitamin D3 (4 sources) Start: 05-19-2019 take 1000 ug by mouth twice daily [...] Take 81 mg by mouth once daily. Active Comment on above: Take 1 tablet by myesha th once daily. Take 81 mg by mouth once daily. Calcium Citrate (5 sources) Start: 022 take 2 tablets by mouth twice daily [...] tablet (3 sources) Nonsteroidal Anti-inflammatory Drug End: 023 take 75 mg by mouth twice daily [...] 1 teaspoonful b y mouth once daily. hydroCHLOROthiazide 25 mg oral tablet (20 sources) Thiazide Diuretic Start : 11-20 End: 12-01 take 1 tablet by mouth once daily hydroCHLOROthiazide 25 mg tablet Indications: Essential hypertension Take 1 tablet by mouth once daily. 90 tablet 3 11/12/2023 12/01/2024 Discontinued (Discontinued by another Health Care Provider) Comment on above: Take 1 tablet by myesha once daily. iv contrast (will be provided with radiology test) (16 sources) Start : 05-16 End: 02-08 inject 1 dose intravenously once iv contrast [...] mg/mL (1 %) 8 mL injection (XYLOCAINE) ma-qh-ygtP-asbNa-Glu- Juli-hc124 (AIRBORNE, ASCORBATE SODIUM,) 334-1.7 mg chew (4 sources) take 1 tablet by mouth once daily ch-uj-ecyT-asbNa-Glu -Juli-hc124 (AIRBORNE, ASCORBATE SODIUM,) 334-1.7 mg chew Take 1 tablet by mouth once daily. 0 Active Comment on above: Take 1 tablet by myesha th once daily. ii-bx-ifnJ-asbNa-Glu- Juli-hc124 334-1.7 mg chew (17 sources) End: 08-13-20 take 1 tablet by mouth once daily zg-kc-cfsC-asbNa-Glu -Juli-hc124 334-1.7 mg chew Take 1 tablet by mouth once daily. 0 08/13/2023 Discontinued (Duplicate Entry) take 1 tablet by myesha th once daily hc-gb-mxaA-yckBw-Ori-Hub-hc124 334-1.7 m g chew Take 1 tablet by mouth once daily. 0 Active Comment on above: Take 1 tablet by myesha th once daily. omega 6-chr-qhj-fish oil (FISH OIL) 900-1,400 mg cpDR (20 sources) Start: 04-12-2021 End: 02-11-2024 omega 4-xpb-twb-fish oil (FISH OIL) 900-1,400 mg cpDR Take [...] [Incisional hernia without obstruction or gangrene] Onset: 4 Episodic Anxiety disorders (1 source) Generalized anxiety disorder 08-10-2024 Chronic Aortic; peripheral; and visceral artery aneurysms (20 sources) Thoracic aortic aneurysm without rupture; Translations: [Thoracic aortic aneurysm, without rupture] Onset: 8 Resolved: 4 08-19-2018 Chronic Cardiac dysrhythmias (20 sources) Ventricular premature beats; Translations: [Paroxysmal atrial fibrillation] Onset: 8 08-25-2015 Chronic Comment on above: occasionally Cataract (2 sources) Artificial lens present; Translations: [Presence of intraocular lens] Onset: 5 12-22-2024 Chronic Chronic obstructive pulmonary disease and bronchiectasis (1 [...] of colon; Translations: [Polyp of colon] Onset: 2 Episodic Other and unspecified benign neoplasm (5 sources) History of polyp of colon 02-07-2022 Episodic Other and unspecified benign neoplasm (1 source) Benign neoplasm of major salivary gland 08-10-2024 Episodic Other circulatory disease (2 sources) History of replacement of ascending aorta; Translations: [Presence of other vascular implants and grafts] Chronic Other connective tissue disease (5 sources) Rotator cuff syndrome 02-05-2014 Episodic Other eye disorders (1 source) Dry eye syndrome of bilateral lacrimal glands; Translations: [Dry eye syndrome of bilateral lacrimal glands] Onset: 5 Episodic Other eye disorders (1 source) Dry eye syndrome of unspecified lacrimal gland; Translations: [Dry eye] Onset: 5 Episodic Other eye disorders (1 source) Brow ptosis, bilateral; Translations: [Brow ptosis, bilateral] Onset: 5 Episodic Other eye disorders (3 sources) Dermatochalasis of right upper eyelid; Translations: [Dermatochalasis] Onset: 5 12-22-2024 Episodic Other eye disorders (1 source) Dermatochalasis of left upper eyelid; Translations: [Dermatochalasis of both upper eyelids] Onset: 5 Episodic Other eye disorders (2 sources) Dry eyes; Translations: [Dry eye syndrome of unspecified lacrimal gland] Onset: 5 12-22-2024 Episodic Other eye disorders (2 sources) Meibomian gland dysfunction of bilateral eyes; Translations: [Meibomian gland dysfunction right eye, upper and lower eyelids] Onset: 5 12-22-2024 Episodic Other eye disorders (1 source) Disorder of lacrimal gland; Translations: [Dry eye syndrome of bilateral lacrimal glands] Onset: 5 12-22-2024 Episodic Other gastrointestinal disorders (20 sources) History [...] 10-29-2016 10-29-2016 Episodic Coagulation and hemorrhagic disorders (4 sources) Secondary thrombocytopenia; Translations: [Other secondary thrombocytopenia] Onset: 08-12-2018 Resolved: 08-10-2024 08-19-2018 Episodic Complications of surgical procedures or medical care (6 sources) Hypotension following procedure; Translations: [Postprocedural hypotension] Onset: 08-12-2018 Resolved: 08-20-2018 08-13-2018 Episodic Congestive heart failure; nonhypertensive (4 sources) Heart failure; Translations: [Heart failure, unspecified] Onset: 08-12-2018 Resolved: 08-10-2024 08-14-2018 Chronic Diabetes mellitus without complication (3 sources) Metabolic stress hyperglycemia; Translations: [Hyperglycemia, unspecified] Onset: 08-12-2018 Resolved: 08-15-2018 08-15-2018 Episodic Fluid and electrolyte disorders (3 sources) Hypervolemia; Translations: [Fluid overload, unspecified] Onset: 08-15-2018 Resolved: 08-20-2018 08-20-2018 Episodic Other nervous system disorders (3 sources) Acute postoperative pain; Translations: [Other acute postprocedural pain] Onset: 08-12-2018 Resolved: 08-16-2018 08-16-2018 Episodic Pleurisy; pneumothorax; pulmonary collapse (3 sources) Atelectasis; Translations: [Atelectasis] Onset: 08-15-2018 Resolved: 08-19-2018 08-19-2018 Episodic Residual codes; unclassified (20 sources) Other amnesia; Translations: [Memory loss] Onset: 01-09-2017 01-09-2017 Episodic Residual codes; unclassified (20 sources) Age-associated memory impairment; Translations: [Other amnesia] Onset: 01-09-2017 01-09-2017 Episodic Residual codes; unclassified (6 sources) Memory finding; Translations: [Other amnesia] Onset: 01-09-2017 01-09-2017 Episodic Residual codes; unclassified (2 sources) Transition of care; Translations: [Other specified health status] Onset: 08-15-2018 08-20-2018 Episodic Respiratory failure; insufficiency; arrest (adult) (3 sources) Ventilator finding; Translations: [Dependence on respirator [ventilator] status] Onset: 08-12-2018 Resolved: 08-13-2018 08-13-2018 Chronic Sprains and strains (10 sources) Strain of muscle(s) and tendon(s) of the rotator cuff of right shoulder, initial encounter; Translations: [Rotator cuff (capsule) sprain] Onset: 07-08-2023 07-08-2023 Episodic Results Test Name Value Interpretation Reference Range Facility [facility] 12-08-2024 CNOV Office Visit (PLASMN ) WALLY BARROW ([id number]) 1945 M Date Time Provider Department 12/08/24 11:00 AM ANGELES DECKER During your visit today, we recorded the following information about you: Angeles Decker MD 12/08/2024 2:47 PM Signed BLEPHAROPLASTY Patient Evaluation and Operative Planning CC: ....Consult.Bilateral upper and brow lift ......... ? HPI: Wally is a 79 year old male who presents today for evaluation of bilateral upper blepharoplasty and brow lift. Patient was seen by a plastic surgeon in [place] and was approved for surgery but would like a second opinion. Patient has had multiple seborrheic keratosis that was treated by a cast iron drain pipe layer with liquid nitrogen. Patient reports that he has difficulty with vision with left eye being worse than the right d/t the weight of his eyelids. Patient is not concerned about the appearance of his eyes but was told by his eye doctor that since his eyelids are drooping and it is causing issues with his vision and would benefit from a blepharoplasty and brow lift. Occupation: Retired Patient Concerns: Tired appearance: yes [] no [x] Drooping upper eyelids: yes [x] no [] Bags upper eyelids: yes [] no [x] Skin wrinkling lids yes [] no [x] Discoloration lower lids yes [] no [x] Tearing eyes yes [] no [x] Dry eyes yes [x] no [] Other: Pain: Now 0[x] 1[] 2[] 3[] 4[] 5[] 6[] 7[] 8[] 9[] 10 Average 0[x] 1[] 2[] 3[] 4[] 5[] 6[] 7[] 8[] 9[] 10[] Rest 0[x] 1[] 2[] 3[] 4[] 5[] 6[] 7[] 8[] 9[] 10[] Eye movement 0[x] 1[] 2[] 3[] 4[] 5[] 6[] 7[] 8[] 9[] 10[] Eye Drops: yes [x] no [] BID Glasses: yes [x] no [] (need for []far-myopia []near correction) wears only when driving Contacts: yes [] no [x] Objective: PAST SURGICAL HISTORY Procedure Laterality Date CHOLECYSTECTOMY HX with concurrent umbilical hernia repair HAND SURGERY HX Right piece of bone removed and tendon repair for arthritis KNEE ARTHROSCOPY Right fluid removed SHOULDER SURGERY HX Bilateral rotator cuff SHX AORTIC VALVE REPLACEMENT 08/12/2018 SINUS SURGERY HX PAST MEDICAL HISTORY Diagnosis Date Aortic insufficiency Ascending aortic aneurysm (HCC) Dilated aortic root (HCC) History of GI bleed history of bleeding ulcer HLD (hyperlipidemia) Hypertension 11/25/1989 Mitral insufficiency Paroxysmal atrial fibrillation (HCC) 08/15/2018 Tricuspid insufficiency Current Outpatient Medications Medication Sig Dispense Refill irbesartan (AVAPRO) 300 mg tablet Take 1 tablet by mouth daily at bedtime. 90 tablet 3 hydroCHLOROthiazide 25 mg tablet Take 1 tablet by mouth once daily. 90 tablet 3 metoprolol succinate ER (TOPROL XL) 25 mg 24 hr tablet take 1 tablet by mouth every evening 90 tablet 3 iron bisgly,ps-FA-B-C#12-succ 65 mg-65 mg -1,000 mcg (24) tab Take 65 mg by mouth once weekly aspirin, enteric coated (ASPIRIN, ENTERIC COATED) 81 mg EC tablet Take 81 mg by mouth once daily. OTC PRODUCT once daily. OTC Force Factor take 3 tablet once per day xz-dl-M-theanine-herb no.310 (AIRBORNE EVERYDAY STRESS AWAY) 1,000 mg-200 mg-360 mg pwpk Take by mouth. acetaminophen (TYLENOL) 325 mg tablet Take 650 mg by mouth as needed for pain. sodium chloride (SALINE MIST NASAL) Use in the nose. azithromycin (ZITHROMAX) 500 mg tablet Take 1 tablet by mouth once daily. Take one tablet 60 minutes prior to procedure. 1 tablet 0 multivitamin tablet Take 1 tablet by mouth [...] No current facility-administered medications for this visit. There were no vitals taken for this visit. ALLERGIES Allergen Reactions Lisinopril Cough There is no height or weight on file to calculate BMI. Estimated body surface area is 2.1 meters squared as calculated from the following: Height as of 07/08/23: 177.8 cm (5' 10 ). Weight as of 02/11/24: 89.5 kg (197 lb 4.8 oz). No results found for: HBA1C Last 10 Encounter BP Readings: Date: BP: 02/11/2024 128/80 08/13/2023 132/85 02/08/2023 132/84 02/06/2023 123/84 01/11/2023 110/64 08/15/2022 114/72 02/05/2022 108/ (more content not included)... Normal [facility] CNOVon 12-01-2024 CNOV Office Visit (CARD P ) WALLY BARROW ([id number]) 1945 M Date Time Provider Department 12/01/24 9:30 AM ABEBA KEEN During your visit today, we recorded the following information about you: Pulse Blood pressure Weight Height 70/minute 148/95 83.9 kg 1.778 m Abeba Keen APRN.INTERNATIONAL ACCOUNT REPRESENTATIVE 12/08/2024 5:19 PM Addendum [facility] [place] [facility]um Department of Cardiovascular Medicine SECTION OF PREVENTIVE CARDIOLOGY 12/01/2024 Wally Barrow CURRENT MEDS: Current Outpatient Medications Medication Sig simvastatin (ZOCOR) 20 mg tablet daily at bedtime. furosemide (LASIX) 20 mg tablet Take 20 mg by mouth once daily. irbesartan (AVAPRO) 300 mg tablet Take 1 tablet by mouth daily at bedtime. iron bisgly,ps-FA-B-C#12-succ 65 mg-65 mg -1,000 mcg (24) tab Take 65 mg by mouth once weekly aspirin, enteric coated (ASPIRIN, ENTERIC COATED) 81 mg EC tablet Take 81 mg by mouth once daily. OTC PRODUCT once daily. OTC Force Factor take 3 tablet once per day lm-fw-N-theanine-herb no.310 (AIRBORNE EVERYDAY STRESS AWAY) 1,000 mg-200 [...] visit. ALLERGIES: ALLERGIES Allergen Reactions Lisinopril Cough CHIEF COMPLAINT: Wally Barrow is a 79 year old White male seen today. 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 Briggs, and postoperative atrial fibrillation. Patient presents for ongoing management of cardiovascular risk factors. Pt was in a crouched position in the basement. He lost his balance and tipped backwards. No injury. He also slipped in water and fell. No injury. Pt sees his PCP with his every 1-2 months. His recently needed to discontinue beta blockers and HCTZ due to orthostatic hypotension and low HR. Pt became concerned that he may also develop those symptoms so he discontinued both medications. He is in PT for right hip pain. Chest pain: No Claudication: No SOB: No Orthopnea: No PND: No LE: Resolved with furosemide. Wearing compression stockings. Began when sleeping in recliner for 's hospitalization. Lightheadedness/dizziness: occasionally, once per week with position change. Palpitations:No Bleeding/bruising: No CARDIAC RISK FACTORS: History [...] EXAMINATION Vital Signs and General Appearance BP 148/95 (BP Site: Left Arm, BP Position: Sitting, BP Cuff Size: Regular Adult) Pulse 70 Ht 177.8 cm (5' 10 ) Wt 83.9 kg (185 lb) SpO2 95% BMI 26.54 kg/m? BMI 26.54 kg/(m2 (more content not included)... Normal [facility] ECHOon 12-01-2024 CONCLUSIONS: - Exam indication: AVR - The left ventricle is normal in size. Left ventricular systolic function is normal. EF = 67 5% (2D biplane) - The right ventricle is normal in size. Right ventricular systolic function is normal. - The right atrial cavity is dilated. - The visualized aorta is dilated with a maximal dimension of 4.3 cm. - There is 1-2+ MR. - There is moderate (2+) tricuspid valve regurgitation. 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 There is no aorticvalve regurgitation. The peak gradient is 24 mmHg, the mean gradient is 13 mmHg and the dimensionless valve index is 0.46. Prior Pk/Mn gradients of 23/13 mmHg. - Estimated right ventricular systolic pressure is 35 mmHg consistent with mild pulmonary hypertension. Estimated right atrial pressure is 3 mmHg based on IVC assessment. - Exam was compared with the prior CC echocardiographic exam performed on 05/15/2023. Stable aortic prosthesis. TR slightly more prominent / better visualized on the current study. Similar estimated RVSP * * * Final * * * [facility] Echocardiography Report: Transthoracic Echo [facility] J1-5 Date of service: 12/01/2024 3:49:55 PM BREAKER Ordering physician: ABEBA KEEN Indication: AVR Technologist: Georgina Becker RD Fellow: Alessio Laboy MD Interpreting physician: Yosi Lambert MD PATIENT: Name: MR. WALLY BARROW : 1945 Age: 79 years Gender: M History of valvular heart disease. 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 Height: 177.80 cm BSA: 2.04 m Weight: 83.92 kg BMI: 26.5 kg/m Heart rate 69 bpm Blood pressure 146/93 mmHg Color Doppler was utilized to interrogate the cardiac valves assessed and spectral Doppler was utilized to determine the flow velocities and pressure gradients reported in this exam. MEASUREMENTS: Value Indexed Normal Max aortic dimension 4.3 cm Ao < 3.8 Left atrial volume 62 ml (Bradford's) 30 ml/m Anh <= 34 LV ID (diastole) 4.2 cm (2D) 2.06 cm/m LV ID (systole) 2.3 cm (2D) 1.13 cm/m IVS, leaflet tips 1.6 cm (2D) Posterior wall thickness 1.4 cm (2D) Left ventricular mass 250 g (2D) 123 g/m LV stroke volume 75 ml (2D biplane) LV end diastolic volume 112 ml (2D biplane) 55.1 ml/m 34<=EDVi<75 LV end systolic volume 37 ml (2D biplane) 18.1 ml/m Ejection Fraction 67 % (2D biplane) EF > 52 FINDINGS: LEFT VENTRICLE The left ventricle is normal in size. Left ventricular systolic function is normal. Grade I left ventricular diastolic dysfunction. Mitral annular lateral E/e': 10.0. Mitral annular septal E/e': 15.2. Wall Motion: All scored segments are normal. RIGHT VENTRICLE The right ventricle is normal in size. Right ventricular systolic function is normal. RV systolic tissue Doppler velocity is 11.5 cm/s. Tricuspid annular displacement is 1.8 cm. Estimated right ventricular systolic pressure is 35 mmHg consistent with mild pulmonary hypertension. Estimated right atrial pressure is 3 mmHg based on IVC assessment. LEFT ATRIUM The left atrial cavity is normal in size. Pulmonary Veins: The pulmonary venous pattern showed normal systolic flow. RIGHT ATRIUM The right atrial cavity is dilated. Inferior Vena Cava: The inferior vena cava appears normal measuring 0.6 cm. The vessel decreases greater than 50 percent with inspiration. MITRAL VALVE There is mild (1+ - 2+) mitral valve regurgitation. There is mild thickening. The pressure half time is 98 msec. The peak mitral E/A ratio is 0.86. The average mitral E/e' ratio is 12.6. The mitral flow deceleration time is 338 msec. TRICUSPID VALVE There is moderate (2+) tricuspid valve regurgitation. There is no thickening. The hepatic venous pattern showed normal systolic flow. 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 There is no aortic valve regurgitation. The peak gradient is 24 mmHg (peak velocity = 244.0 cm/s). The mean gradient is 13 mmHg. The LVOT mean velocity is 77.0 cm/s. The aortic VTI is 53.7 cm. The mean velocity in the aortic valve is 173.0 cm/s. The dimensionless valve index is 0.46. PULMONIC VALVE The pulmonic valve cusps are structurally normal. There is trace pulmonic valve regurgitation. AORTA The visualized aorta is dilated. Measurements - Mid ascending aorta 4.3 cm. Mid arch 4.1 cm. Distal descending diaphragmatic level 2.0 cm. PULMONARY ARTERIES The pulmonary arteries are normal. INTERATRIAL SEPTUM There is no evidence of intracardiac shunting as detected by Doppler. INTERVENTRICULAR SEPTUM There is abnormal motion of the interventricular septum secondary to prior cardiac surgery. There is no flow through the interventricular septum as detected by Doppler. PERICARDIUM There is no pericardial effusion. [facility] Echocardiography Echocardiography Rep ort: Transthoracic Echo [facility] J1-5 Date of service: 12/01/2024 3:49:55 PM BREAKER Ordering physician: ABEBA KEEN Indication: AVR Technologist: Georgina Becker RDCS Fellow: Alessio Laboy MD Interpreting physician: Yosi Lambert MD PATIENT: Name: MR. WALLY BARROW : 1945 Age: 79 years Gender: M History of valvular heart disease. 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 Height: 177.80 cm BSA: 2.04 m Weight: 83.92 kg BMI: 26.5 kg/m Heart rate 69 bpm Blood pressure 146/93 mmHg Color Doppler was utilized to interrogate the cardiac valves assessed and spectral Doppler was utilized to determine the flow velocities and pressure gradients reported in this exam. MEASUREMENTS: Value Indexed Normal Max aortic dimension 4.3 cm Ao < 3.8 Left atrial volume 62 ml (Bradford's) 30 ml/m Anh <= 34 LV ID (diastole) 4.2 cm (2D) 2.06 cm/m LV ID (systole) 2.3 cm (2D) 1.13 cm/m IVS, leaflet tips 1.6 cm (2D) Posterior wall thickness 1.4 cm (2D) Left ventricular mass 250 g (2D) 123 g/m LV stroke volume 75 ml (2D biplane) LV end diastolic volume 112 ml (2D biplane) 55.1 ml/m 34<=EDVi<75 LV end systolic volume 37 ml (2D biplane) 18.1 ml/m Ejection Fraction 67 % (2D biplane) EF > 52 FINDINGS: LEFT VENTRICLE The left ventricle is normal in size. Left ventricular systolic function is normal. Grade I left ventricular diastolic dysfunction. Mitral annular lateral E/e': 10.0. Mitral annular septal E/e': 15.2. Wall Motion: All scored segments are normal. RIGHT VENTRICLE The right ventricle is normal in size. Right ventricular systolic function is normal. RV systolic tissue Doppler velocity is 11.5 cm/s. Tricuspid annular displacement is 1.8 cm. Estimated right ventricular systolic pressure is 35 mmHg consistent with mild pulmonary hypertension. Estimated right atrial pressure is 3 mmHg based on IVC assessment. LEFT ATRIUM The left atrial cavity is normal in size. Pulmonary Veins: The pulmonary venous pattern showed normal systolic flow. RIGHT ATRIUM The right atrial cavity is dilated. Inferior Vena Cava: The inferior vena cava appears normal measuring 0.6 cm. The vessel decreases greater than 50 percent with inspiration. MITRAL VALVE There is mild (1+ - 2+) mitral valve regurgitation. There is mild thickening. The pressure half time is 98 msec. The peak mitral E/A ratio is 0.86. The average mitral E/e' ratio is 12.6. The mitral flow deceleration time is 338 msec. TRICUSPID VALVE There is moderate (2+) tricuspid valve regurgitation. There is no thickening. The hepatic venous pattern showed normal systolic flow. 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 There is no aortic valve regurgitation. The peak gradient is 24 mmHg (peak velocity = 244.0 cm/s). The mean gradient is 13 mmHg. The LVOT mean velocity is 77.0 cm/s. The aortic VTI is 53.7 cm. The mean velocity in the aortic valve is 173.0 cm/s. The dimensionless valve index is 0.46. PULMONIC VALVE The pulmonic valve cusps are structurally normal. There is trace pulmonic valve regurgitation. AORTA The visualized aorta is dilated. Measurements - Mid ascending aorta 4.3 cm. Mid arch 4.1 cm. Distal descending diaphragmatic level 2.0 cm. PULMONARY ARTERIES The pulmonary arteries are normal. INTERATRIAL SEPTUM There is no evidence of intracardiac shunting as detected by Doppler. INTERVENTRICULAR SEPTUM There is abnormal motion of the interventricular septum secondary to prior cardiac surgery. There is no flow through the interventricular septum as detected by Doppler. PERICARDIUM There is no pericardial effusion. CONCLUSIONS: - Exam indication: AVR - The left ventricle is normal in size. Left ventricular systolic function is normal. EF = 67 5% (2D biplane) - The right ventricle is normal in size. Right ventricular systolic function is normal. - The right atrial cavity is dilated. - The visualized aorta is dilated with a maximal dimension of 4.3 cm. - There is 1-2+ MR. - There is moderate (2+) tricuspid valve regurgitation. 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 There is no aorticvalve regurgitation. The peak gradient is 24 mmHg, the mean gradient is 13 mmHg and the dimensionless valve index is 0.46. Prior Pk/Mn gradients of 23/13 mmHg. - Estimated right ventricular systolic pressure is 35 mmHg consistent with mild pulmonary hypertension. Estimated right atrial pressure is 3 mmHg based on IVC assessment. - Exam was compared with the prior echocardiographic exam performed on 05/15/2023. Stable aortic prosthesis. TR slightly more prominent / better visualized on the current study. Similar estimated RVSP (more content not included)... Normal [facility] Ambulatory Visit Summaryon 0 08-14-2024 Ambulatory Visit Summary Ambulatory Visit Summary WALLY BARROW Pasha :1945 Visit Date:08/14/2024 Ambulatory Visit Instructions Your Care Team Attending Physician - Sarah SNIDER MD Primary Care Physician - Onel Isaacs MD [...] you for choosing us for your care. [facility] 05-22-2024 [place] Telephone (CARD P) WALLY BARROW ([id number]) 1945 M Date Time Provider Department 05/22/24 ABEBA KEEN CARD P During your visit today, we recorded the following information about you: Indira Gonzalez 05/22/2024 3:55 PM Signed Pt calling to speak with Abeba, he asks that she please return his call when she gets in on Saturday. #:[phone] Abeba Keen APRN.TRACEY 05/26/2024 5:48 PM Signed Pt phoned regarding his . Spoke with Pt and documented in her chart. Abeba Keen APRN.TRACEY Allergies As of Date: 05/22/2024 Noted Allergy Reaction LISINOPRIL 04/26/2017 3 - Cough Date Reviewed: 07/08/2023 Reviewed by: Tonya Crouch OCCA - Fully Assessed Reason for Visit: Patient Question [0857] Prescriptions as of 05/26/2024 - irbesartan (AVAPRO) 300 mg tablet Take 1 tablet by mouth daily at bedtime. - hydroCHLOROthiazide 25 mg tablet Take 1 tablet by mouth once daily. - metoprolol succinate ER (TOPROL XL) 25 mg 24 hr tablet take 1 tablet by mouth every evening - addison whyte-FA-B-C#12-succ 65 mg-65 mg -1,000 mcg (24) tab Take 65 mg by mouth once weekly - aspirin, enteric coated (ASPIRIN, ENTERIC COATED) 81 mg EC tablet Take 81 mg by mouth once daily. - OTC PRODUCT once daily. OTC Force Factor take 3 tablet once per day - fe-fb-S-theanine-herb no.310 ([place] EVERYDAY STRESS AWAY) 1,000 mg-200 [...] Encounter Status:Closed by ABEBA KEEN on 05/26/24 Normal [facility] CNOVon 02-11-2024 CNOV Office Visit (CARD P ) WALLY BARROW ([id number]) 1945 M Date Time Provider Department 02/11/24 9:00 AM ABEBA KEEN CARD P During your visit today, we recorded the following information about you: Pulse Blood pressure Weight 60/minute 128/80 89.5 kg Abeba Keen APRN.CNP 02/25/2024 12:19 PM Addendum [facility] [place] Beni Bynum Department of Cardiovascular Medicine SECTION [...] Factor take 3 tablet once per day uw-wg-K-[facility]-herb no.310 ([place] EVERYDAY STRESS AWAY) 1,000 mg-200 [...] well ap (more content not included)... Normal [facility] ALT SerPl-cCncon 02-05-2024 ALT [Catalytic activity/Vol] 22 U/L Normal 10-54 [facility] Comment on above: Order Comment: Speci men Type: BLOOD SPECIMEN Ordering Facility: [facility] Address: [address] [place] [address] Performed By: #### 1 742-6, 57114-6 #### [facility] CLIA [id number] [address] [place] [address] [place] #### 74655-4 #### [facility] CLIA [id number] [address] [place] [address] [place] [facility] CLIA [id number] [address] [place] [address] [place] Basic metabolic 2000 panelon 02-05-2024 Anion gap [Moles/Vol] 12 mmol/L Normal 9-18 [facility] Comment on above: Order Comment: Speci men Type: BLOOD SPECIMEN Ordering Facility: [facility] Address: [address] [place] [address] Performed By: #### 1 742-6, 42322-4 #### [facility] CLIA [id number] [address] [place] [address] [place] #### 68367-9 #### [facility] CLIA [id number] [address] [place] [address] [place] [facility] CLIA [id number] [address] [place] [address] [place] Calcium [Mass/Vol] 10.2 mg/dL Normal 8.5-10.2 [facility] Comment on above: Order Comment: Speci men Type: BLOOD SPECIMEN Ordering Facility: [facility] Address: [address] [place], [place] [id number] Performed By: #### 1 742-6, 78217-8 #### [facility] CLIA [id number] [address] [place] [address] [place] #### 40287-3 #### [facility] CLIA [id number] [address] [place], [place] [id number] [place] [facility] CLIA [id number] [address] [place] [address] [place] Chloride [Moles/Vol] 105 mmol/L Normal 97-105 [facility] Comment on above: Order Comment: Speci men Type: BLOOD SPECIMEN Ordering Facility: [facility] Address: [address] [place], [place] [id number] Performed By: #### 1 742-6, 73793-6 #### [facility] CLIA [id number] [address] [place] [address] [place] #### 25773-6 #### [facility] CLIA [id number] [address] [place], [place] [id number] [place] [facility] CLIA [id number] [address] [place] [address] [place] CO2 [Moles/Vol] 26 mmol/L Normal 22-30 [facility] Comment on above: Order Comment: Speci men Type: BLOOD SPECIMEN Ordering Facility: [facility] Address: [address] [place] [id number] Performed By: #### 1 742-6, 07651-9 #### [facility] CLIA [id number] [address] [place] [facility] #### 37568-5 #### [facility] CLIA [id number] [facility] [place] [id number] [place] [facility] CLIA [id number] [address] [place] [address] [place] Creatinine [Mass/Vol] 1.18 mg/dL Normal 0.73-1.22 [facility] Comment on above: Order Comment: Speci men Type: BLOOD SPECIMEN Ordering Facility: [facility] Address: [address] [place] [address] Performed By: #### 1 742-6, 97742-1 #### [facility] CLIA [id number] [address] [place] [address] #### 21374-1 #### [facility] CLIA [id number] [address] [place] [address] [facility] CLIA [id number] [address] [place] [address] [place] Creatinine and Glomerular filtration rate.predicted panel (S/P/Bld) 64 mL/min/1.73m??? Normal >=60 [facility] Comment on above: Order Comment: Speci men Type: BLOOD SPECIMEN Ordering Facility: [facility] Address: [address] [place] [address] Result Comment: Debbie mated Glomerular Filtration Rate [...] actual GFR. Performed By: #### 1 742-6, 94560-2 #### [facility] CLIA [id number] [address] [place] [address] [place] #### 68820-4 #### [facility] CLIA [id number] [address] [place] [id number] [place] [facility] CLIA [id number] [address] [place] [address] [place] Glucose [Mass/Vol] 96 mg/dL Normal 74-99 [facility] Comment on above: Order Comment: Speci men Type: BLOOD SPECIMEN Ordering Facility: [facility] Address: [address] [place] [address] Result Comment: The [place] Diabetes Association (ADA) provides guidance for cutoff [...] Standards of Medical Care in Diabetes 2016, [place] Diabetes Association. Diabetes Care. 2016.39(Suppl 1). Performed By: #### 1 742-6, 73658-3 #### [facility] CLIA [id number] [address] [place] [address] [place] #### 68513-1 #### [facility] CLIA [id number] [address] [place], [place] [id number] [place] [facility] CLIA [id number] [address] [place] [address] [place] Potassium [Moles/Vol] 3.7 mmol/L Normal 3.7-5.1 [facility] Comment on above: Order Comment: Speci men Type: BLOOD SPECIMEN Ordering Facility: [facility] Address: [address] [place] [address] Performed By: #### 1 742-6, 06861-5 #### [facility] CLIA [id number] [address] [address] [place] #### 09346-6 #### [facility] CLIA [id number] [address] [place] [address] [place] [facility] CLIA [id number] [address] [place] [address] [place] Sodium [Moles/Vol] 143 mmol/L Normal 136-144 [facility] Comment on above: Order Comment: Speci men Type: BLOOD SPECIMEN Ordering Facility: [facility] Address: [address] [place] [id number] Performed By: #### 1 742-6, 78811-3 #### [facility] CLIA [id number] [address] [place] [address] [place] #### 45621-0 #### [facility] CLIA [id number] [address] [place] [address] [place] [facility] CLIA [id number] [address] [place] [address] [place] Urea nitrogen [Mass/Vol] 16 mg/dL Normal 9-24 [facility] Comment on above: Order Comment: Speci men Type: BLOOD SPECIMEN Ordering Facility: [facility] Address: [address] [place] [id number] Performed By: #### 1 742-6, 68564-5 #### [facility] CLIA [id number] [address] [place] [address] [place] #### 56045-0 #### [facility] CLIA [id number] [address] [place] [address] [place] [facility] CLIA [id number] [address] [place] [address] [place] Lipid 1996 panelon 4 Cholesterol [Mass/Vol] 156 mg/dL Normal <200 [facility] Comment on above: Order Comment: Speci men Type: BLOOD SPECIMEN Ordering Facility: [facility] Address: [address] [place] [address] Result Comment: <200 mg/dL, Desirable 200-239 mg/dL, Borderline high >239 mg/dL, High Performed By: #### 1 742-6, 18451-2 #### [facility] CLIA [id number] [address] [place] [address] [place] #### 93681-6 #### [facility] CLIA [id number] [address] [place] [address] [place] [facility] CLIA [id number] [address] [place] Cholesterol in HDL [Mass/Vol] 37 mg/dL Low >39 [facility] Comment on above: Order Comment: Speci men Type: BLOOD SPECIMEN Ordering Facility: [facility] Address: [address] [place] [address] Result Comment: 40-5 9 mg/dL, Acceptable >59 mg/dL, High: Negative risk factor for coronary heart disease <40 mg/dL, Low: Positive risk factor for coronary heart disease Performed By: #### 1 742-6, 29959-8 #### [facility] CLIA [id number] [address] [place] [address] [place] #### 44955-2 #### [facility] CLIA [id number] [address] [place] [address] [place] [facility] CLIA [id number] [address] [place] [address] [place] Cholesterol in LDL [Mass/Vol] 79 mg/dL Normal <100 [facility] Comment on above: Order Comment: Speci men Type: BLOOD SPECIMEN Ordering Facility: [facility] Address: [address] [place] [address] Result Comment: <100 mg/dL, Optimal 100-129 mg/dL, Near optimal/above optimal 130-159 mg/dL, Borderline high 160-189 mg/dL, High >189 mg/dL, Very high Secondary prevention optimal LDL Cholesterol levels are recommended to be < 70 mg/dL Performed By: #### 1 742-6, 24699-9 #### [facility] CLIA [id number] [address] [place] [address] [place] #### 78499-4 #### [facility] CLIA [id number] [address] [place] [address] [place] [facility] CLIA [id number] [address] [place] [address] [place] Cholesterol in LDL/Cholesterol in HDL [Mass ratio] 2.14 {ratio} Normal <2.54 [facility] Comment on above: Order Comment: Speci men Type: BLOOD SPECIMEN Ordering Facility: [facility] Address: [address] [place] [address] Result Comment: Mt you: 1. National Cholesterol Education Program ATP III Guideline At-A-Glance Quick Desk Reference: National Heart, Lung, and Blood [place]. National Institutes of Health. 2001: NIH Publication No. 01-3305. 2. An International Atherosclerosis Society position paper: global recommendations for the management of dyslipidemia: executive summary, Atherosclerosis. 2014: 232(2):410-413. Performed By: #### 1 742-6, 61315-4 #### [facility] CLIA [id number] [address] [place] [address] [place] #### 31274-1 #### [facility] CLIA [id number] [address] [place] [address] [place] [facility] CLIA [id number] [address] [place] [address] [place] Cholesterol in VLDL [Mass/Vol] 40 mg/dL High <30 [facility] Comment on above: Order Comment: Speci men Type: BLOOD SPECIMEN Ordering Facility: [facility] Address: [address] [place] [id number] Performed By: #### 1 742-6, 61887-1 #### [facility] CLIA [id number] [address] [place] [address] [place] #### 28792-3 #### [facility] CLIA [id number] [address] [place] [address] [place] [facility] CLIA [id number] [address] [place] [address] [place] Cholesterol non HDL [Mass/Vol] 119 mg/dL Normal <130 [facility] Comment on above: Order Comment: Speci men Type: BLOOD SPECIMEN Ordering Facility: [facility] Address: [address] [place] [address] Result Comment: <130 mg/dL, Optimal 130-159 mg/dL, Near optimal/above optimal 160-189 mg/dL, Borderline high 190-219 mg/dL, High >219 mg/dL, Very high Secondary prevention optimal non HDL Cholesterol levels are recommended to be <100 mg/dL Performed By: #### 1 742-6, 74887-5 #### [facility] CLIA [id number] [address] [place] [address] [place] #### 00790-4 #### [facility] CLIA [id number] [address] [place] [address] [place] [facility] CLIA [id number] [address] [place] [address] [place] Cholesterol.total/C holesterol in HDL [Mass ratio] 4.22 {ratio} Normal <5.10 [facility] Comment on above: Order Comment: Speci men Type: BLOOD SPECIMEN Ordering Facility: [facility] Address: [address] [place], [place] [id number] Performed By: #### 1 742-6, 81387-8 #### [facility] CLIA [id number] [address] [place] [id number] [place] #### 12814-9 #### [facility] CLIA [id number] [address] [place], [place] [id number] [place] [facility] CLIA [id number] [address] [place] [address] [place] FASTING TIME 12 hrs Normal [facility] Comment on above: Order Comment: Speci men Type: BLOOD SPECIMEN Ordering Facility: [facility] Address: [address] [place], [place] [id number] Performed By: #### 1 742-6, 12755-9 #### [facility] CLIA [id number] [address] [place] [address] [place] #### 51652-1 #### [facility] CLIA [id number] [address] [place], [place] [id number] [place] [facility] [facility] CLIA [id number] [address] [place] [id number] [place] Triglyceride [Mass/Vol] 199 mg/dL High <150 [facility] Comment on above: Order Comment: Speci men Type: BLOOD SPECIMEN Ordering Facility: [facility] Address: [address] [place], [place] [id number] Result Comment: <150 mg/dL, Normal 150-199 mg/dL, Borderline high 200-499 mg/dL, High >499 mg/dL, Very high Performed By: #### 1 [id number], [id number] #### [facility] CLIA [id number] [address] [place] [id number] [place] #### [id number] #### [facility] CLIA [id number] [address] [place], [place] [id number] [place] [facility] CLIA [id number] [address] [place] [address] [place] EXERCISE STRESS ECG (WITHOUT IMAGING)on 02-08-2023 [facility] Basic metabolic 2000 panelon 02-06-2023 Anion gap [Moles/Vol] 11 mmol/L 9 - 18 mmol/L [facility] Calcium [Mass/Vol] 9.8 mg/dL 8.5 - 10. 2 mg/dL [facility] Chloride [Moles/Vol] 107 mmol/L High 97 - 105 mmol/L [facility] CO2 [Moles/Vol] 25 mmol/L 22 - 30 mmol/L [facility] Creatinine [Mass/Vol] 1.43 mg/dL High 0.73 - 1.22 mg/dL [facility] Estimated Glomerular Filtration Rate 51 mL/min/1.73m Low >=60 mL/min/1.73 m [facility] Glucose [Mass/Vol] 93 mg/dL 74 - 99 mg/dL [facility] Potassium [Moles/Vol] 3.7 mmol/L 3.7 - 5.1 mmol/L [facility] Sodium [Moles/Vol] 143 mmol/L 136 - 144 mmol/L [facility] Urea nitrogen [Mass/Vol] 20 mg/dL 9 - 24 mg/dL [facility] CBC panel Auto (Bld)on 02-06 Erythrocyte distribution width (RBC) [Ratio] 14.1 % 11.5 - 15.0 % [facility] Hematocrit (Bld) [Volume fraction] 46.7 % 39.0 - 51.0 % [facility] Hemoglobin (Bld) [Mass/Vol] 15.2 g/dL 13.0 - 17.0 g/dL [facility] MCH (RBC) [Entitic mass] 29.0 pg 26.0 - 34.0 pg [facility] MCHC (RBC) [Mass/Vol] 32.5 g/dL 30.5 - 36.0 g/dL [facility] MCV (RBC) [Entitic vol] 89.1 fL 80.0 - 100.0 fL [facility] Nucleated RBC (Bld) [#/Vol] <0.01 k/uL [facility] Platelet mean volume (Bld) [Entitic vol] 11.0 fL 9.0 - 12.7 fL [facility] Platelets (Bld) [#/Vol] 152 10*3/uL 150 - 400 k/uL [facility] RBC (Bld) [#/Vol] 5.24 10*6/uL 4.20 - 6.0 0 m/uL [facility] WBC (Bld) [#/Vol] 7.89 10*3/uL 3.70 - 11.00 k/uL [facility] NM CARDIAC PERF STRESS/PHARM on 01-11-2023 [facility] CHEMISTRYOrdered By: SYSTEM SYSTEM on 01-07-2023 Creatinine [Mass/Vol] 1.2 mg/dL Normal 0.5 - 1.3 mg/dL [facility] [place] Remisol GFR/1.73 sq M.predicted among blacks MDRD (S/P/Bld) [Vol rate/Area] mL/min/1.73 m2 Normal >=59mL/min/ 1.73 m2 [facility] [place] Chem S GFR/1.73 sq M.predicted among non-blacks MDRD (S/P/Bld) [Vol rate/Area] 59 mL/min/1.73 m2 Normal >=59mL/min/ 1.73 m2 [facility] [place] Chem S CHEMISTRYOrdered By: SYSTEM SYSTEM on 05-18-2022 Creatinine [Mass/Vol] 1.2 mg/dL Normal 0.5 - 1.3 mg/dL [facility] [place] Remisol GFR/1.73 sq M.predicted among blacks MDRD (S/P/Bld) [Vol rate/Area] mL/min/1.73 m2 Normal >=59mL/min/ 1.73 m2 [facility] [place] Chem S GFR/1.73 sq M.predicted among non-blacks MDRD (S/P/Bld) [Vol rate/Area] 59 mL/min/1.73 m2 Normal >=59mL/min/ 1.73 m2 [facility] [place] Chem S NM CARDIAC PERF STRESS/EXERC ISEon 04-11-2022 [facility] Large Joint Arthro/Inj: R sh oulder joint [facility] Vital Signs Date Time Vital Sign Value Performing Clinician Facility 12-01-2024 10:25-0500 Body height 177.8 cm Abeba Keen APRN.CNP Work Phone: [facility] 12-01-2024 10:25-0500 Body mass index (BMI) [Ratio] 26.54 kg/m2 Abeba Keen APRN.CNP Work Phone: [facility] 12-01-2024 10:25-0500 Body weight 83.92 kg Abeba Goodwater EXHAUST WORKER.INTERNATIONAL ACCOUNT REPRESENTATIVE Work Phone: [facility] 12-01-2024 10:25-0500 Diastolic blood pressure 95 mm[Hg] Abeba Goodwater EXHAUST WORKER.INTERNATIONAL ACCOUNT REPRESENTATIVE Work Phone: [facility] 12-01-2024 10:25-0500 Heart rate 70 /min Abeba Goodwater EXHAUST WORKER.INTERNATIONAL ACCOUNT REPRESENTATIVE Work Phone: [facility] 12-01-2024 10:25-0500 SaO2% (BldA) [Mass fraction] 95 % Abeba Osmani EXHAUST WORKER.INTERNATIONAL ACCOUNT REPRESENTATIVE Work Phone: [facility] 12-01-2024 10:25-0500 Systolic blood pressure 148 mm[Hg] Abeba Osmani EXHAUST WORKER.INTERNATIONAL ACCOUNT REPRESENTATIVE Work Phone: [facility] 08-14-2024 14:11-0400 Blood Pressure Location Sarah NILL [facility] [place] 08-14-2024 14:11-0400 Diastolic blood pressure 85 mm[Hg] Sarah NILL [facility] [place] 08-14-2024 14:11-0400 Heart rate 76 /min Sarah NILL [facility] [place] 08-14-2024 14:11-0400 Respiratory rate 16 /min Sarah NILL [facility] [place] 08-14-2024 14:11-0400 Systolic blood pressure 151 mm[Hg] Sarah NILL [facility] [place] 02-11-2024 09:35-0400 Body weight 89.5 kg Abeba Goodwater EXHAUST WORKER.INTERNATIONAL ACCOUNT REPRESENTATIVE Work Phone: [facility] 02-11-2024 09:35-0400 Diastolic blood pressure 80 mm[Hg] Abeba Goodwater EXHAUST WORKER.INTERNATIONAL ACCOUNT REPRESENTATIVE Work Phone: [facility] 02-11-2024 09:35-0400 Heart rate 60 /min Abeba Goodwater EXHAUST WORKER.INTERNATIONAL ACCOUNT REPRESENTATIVE Work Phone: [facility] 02-11-2024 09:35-0400 Systolic blood pressure 128 mm[Hg] Abeba Goodwater EXHAUST WORKER.INTERNATIONAL ACCOUNT REPRESENTATIVE Work Phone: [facility] 08-13-2023 11:50-0400 Diastolic blood pressure 85 mm[Hg] Abeba Osmani EXHAUST WORKER.INTERNATIONAL ACCOUNT REPRESENTATIVE Work Phone: [facility] 08-13-2023 11:50-0400 Systolic blood pressure 132 mm[Hg] Abeba Osmani EXHAUST WORKER.INTERNATIONAL ACCOUNT REPRESENTATIVE Work Phone: [facility] 08-13-2023 11:39-0400 Body weight 84.87 kg Abeba Goodwater EXHAUST WORKER.INTERNATIONAL ACCOUNT REPRESENTATIVE Work Phone: [facility] 08-13-2023 11:39-0400 Heart rate 60 /min Abeba Goodwater EXHAUST WORKER.INTERNATIONAL ACCOUNT REPRESENTATIVE Work Phone: [facility] 07-08-2023 10:21-0400 Body height 177.8 cm Prabhakar Villa MD Work Phone: [facility] 07-08-2023 10:21-0400 Body weight 82.1 kg Prabhakar Villa MD Work Phone: [facility] 02-08-2023 10:54-0400 Body height 177.8 cm [facility] Work Phone: [facility] 02-08-2023 10:54-0400 Body weight 83.46 kg [facility] Work Phone: [facility] 02-08-2023 10:54-0400 Diastolic blood pressure 84 mm[Hg] [facility] Work Phone: [facility] 02-08-2023 10:54-0400 Heart rate 66 /min [facility] Work Phone: [facility] 03-17-2023 10:54-0400 Systolic blood pressure 132 mm[Hg] [facility] Work Phone: [facility] 02-06-2023 16:08-0400 Body height 177.8 cm Juan F Portillo MD Work Phone: [facility] 02-06-2023 16:08-0400 Body weight 83.46 kg Juan F Portillo MD Work Phone: [facility] 02-06-2023 16:08-0400 Diastolic blood pressure 84 mm[Hg] Juan F Portillo MD Work Phone: [facility] 02-06-2023 16:08-0400 Heart rate 70 /min Juan F Portillo MD Work Phone: [facility] 02-06-2023 16:08-0400 Systolic blood pressure 123 mm[Hg] Juan F Portillo MD Work Phone: [facility] 01-11-2023 13:33-0500 Diastolic blood pressure 64 mm[Hg] Abeba Osmani EXHAUST WORKER.INTERNATIONAL ACCOUNT REPRESENTATIVE Work Phone: [facility] 01-11-2023 13:33-0500 Systolic blood pressure 110 mm[Hg] Abeba Osmani EXHAUST WORKER.INTERNATIONAL ACCOUNT REPRESENTATIVE Work Phone: [facility] 01-11-2023 13:23-0500 Body weight 84.01 kg Abeba Osmani EXHAUST WORKER.INTERNATIONAL ACCOUNT REPRESENTATIVE Work Phone: [facility] 01-11-2023 13:23-0500 Heart rate 78 /min Abeba Osmani EXHAUST WORKER.INTERNATIONAL ACCOUNT REPRESENTATIVE Work Phone: [facility] 08-15-2022 11:02-0400 Body height 177.8 cm Juan F Portillo MD Work Phone: [facility] 08-15-2022 11:02-0400 Body weight 82.56 kg Juan F Portillo MD Work Phone: [facility] 08-15-2022 11:02-0400 Diastolic blood pressure 72 mm[Hg] Juan F Portillo MD Work Phone: [facility] 08-15-2022 11:02-0400 Heart rate 65 /min Juan F Portillo MD Work Phone: [facility] 08-15-2022 11:02-0400 Systolic blood pressure 114 mm[Hg] Juan F Portillo MD Work Phone: [facility] 02-19-2022 11:25-0400 Diastolic blood pressure 92 mm[Hg] Tyler SALAM [facility] 02-19-2022 11:25-0400 Heart rate 47 /min Tyler SALAM [facility] 02-19-2022 11:25-0400 Respiratory rate 18 /min Tyler SALAM [facility] 02-19-2022 11:25-0400 SaO2% (BldA) [Mass fraction] 99 % Tyler SALAM [facility] 02-19-2022 11:25-0400 Systolic blood pressure 128 mm[Hg] Tyler SALAM [facility] 02-19-2022 11:15-0400 Diastolic blood pressure 92 mm[Hg] Tyler SALAM [facility] 02-19-2022 11:15-0400 Heart rate 46 /min Tyler SALAM [facility] 02-19-2022 11:15-0400 Respiratory rate 15 /min Tyler SALAM [facility] 02-19-2022 11:15-0400 SaO2% (BldA) [Mass fraction] 98 % Tyler SALAM [facility] 02-19-2022 11:15-0400 Systolic blood pressure 128 mm[Hg] Tyler SALAM [facility] 02-19-2022 11:00-0400 Diastolic blood pressure 78 mm[Hg] Tyleraleksandar ARNOLDAM [facility] 02-19-2022 11:00-0400 Heart rate 51 /min Tyler SALAM [facility] 02-19-2022 11:00-0400 Respiratory rate 20 /min Tyler SALAM [facility] 02-19-2022 11:00-0400 SaO2% (BldA) [Mass fraction] 97 % Tyler SALAM [facility] 02-19-2022 11:00-0400 Systolic blood pressure 122 mm[Hg] Tyler SALAM [facility] 02-19-2022 10:46-0400 Body temperature 97.16 [degF] Tyler SALAM [facility] 02-19-2022 10:14-0400 Blood Pressure Location Tyler SALAM [facility] 02-19-2022 10:14-0400 Body temperature 98.06 [degF] [facility] Encounters Encounter Date Encounter Type Care Provider Facility Start: 12-22-2024 End: 12-22-2024 ambulatory [facility] Facility:[facility] Start: 12-22-2024 End: 12-22-2024 Patient encounter procedure Sarah Huitron OD Work Phone: Ophthalmology Comment on above: Dry eye (Primary Dx) ; Meibomian gland dysfunction (MGD) of upper and lower lids of both eyes; Dermatochalasis of both upper eyelids; Pseudophakia Start: 12-08-2024 End: 12-08-2024 ambulatory [facility] Facility:[facility] Start: 12-01-2024 End: 12-01-2024 [facility] Facility:[facility] Start: 12-01-2024 End: 12-01-2024 ambulatory ABEBAPAM SUTTONOSMANI Facility:[facility] Start: 12-01-2024 End: 12-01-2024 Patient encounter procedure Abeba Keen APRN.INTERNATIONAL ACCOUNT REPRESENTATIVE Work Phone: [facility]iology Comment on above: Essential hypertensi on (Primary Dx); Hyperlipidemia, unspecified hyperlipidemia type; S/P AVR Start: 08-14-2024 End: 08-14-2024 ambulatory Sarah SNIDER Facility:[facility] Start: 08-14-2024 End: 08-14-2024 Patient encounter procedure Sarah SNIDER [facility] [place] Start: 08-07-2024 ambulatory Sarah SNIDER Facility:[facility] Start: 05-22-2024 Telephone encounter Abeba reynolds APRN.INTERNATIONAL ACCOUNT REPRESENTATIVE Work Phone: [facility] Comment on above: Patient Question Start: 02-11-2024 End: 02-11-2024 ambulatory ONEL ISAACS Facility:[facility] Start: 02-11-2024 End: 02-11-2024 Patient encounter procedure Abeba Keen EXHAUST WORKER.INTERNATIONAL ACCOUNT REPRESENTATIVE Work Phone: [facility] Comment on above: Hyperlipidemia, unsp ecified hyperlipidemia type (Primary Dx); Essential hypertension; S/P AVR Start: 02-05-2024 End: 02-05-2024 ambulatory [facility] Facility:[facility] Start: 11-11-2023 Refill Juan F Portillo MD Work Phone: [facility]iology Comment on above: Refill Request Start: 08-19-2023 Refill Juan F Portillo MD Work Phone: [facility] Comment on above: Refill Request Start: 08-13-2023 End: 08-13-2023 Patient encounter procedure Abeba Keen APRN.INTERNATIONAL ACCOUNT REPRESENTATIVE Work Phone: [facility] Comment on above: Hyperlipidemia, unsp ecified hyperlipidemia type (Primary Dx); Essential hypertension; S/P AVR Start: 07-15-2023 Refill Joyce apple APRN.INTERNATIONAL ACCOUNT REPRESENTATIVE Work Phone: [facility] Comment on above: Refill Request Start: 07-08-2023 End: 07-08-2023 Patient encounter procedure Prabhakar Villa MD Work Phone: Orthopaedics Comment on above: S/P right rotator cu ff repair (Primary Dx); Traumatic complete tear of right rotator cuff, initial encounter Start: 06-04-2023 Telephone encounter Juan F emerson MD Work Phone: [facility] Comment on above: Medication Question Start: 03-28-2023 End: 03-28-2023 Patient encounter procedure Onel Isaacs [facility] Start: 03-12-2023 Telephone encounter Juan F emerson MD Work Phone: [facility] Comment on above: Patient Question (An y additional testing?) Start: 02-08-2023 End: 02-08-2023 Patient encounter procedure Hannah Taylor APRN.INTERNATIONAL ACCOUNT REPRESENTATIVE Work Phone: [facility] Comment on above: [...] End: 01-11-2023 Patient encounter procedure Abeba Keen APRN.INTERNATIONAL ACCOUNT REPRESENTATIVE Work Phone: [facility] Comment on above: [...] End: 01-07-2023 Patient encounter procedure Onel Isaacs [facility] Start: 12-28-2022 Telephone encounter Hvi Thorac ic Surg Consult Thoracic Clinic Comment on above: Consult (Self referr ing); Received Outside Medical Records Start: 12-27-2022 Telephone encounter Onel Isaacs MD Work Phone: NOC Comment on above: Appointment Start: 11-12-2022 Refill Juan F Portillo MD Work Phone: [facility] Comment on above: Refill Request Start: 10-11-2022 Refill Clarisse Gee APRN, .CNP Work Phone: [facility] Comment on above: [...] End: 05-18-2022 Patient encounter procedure Onel Isaacs [facility] Start: 04-11-2022 End: 04-11-2022 Subsequent hospital visit by physician Card Injection Molecular Imaging Comment on above: Precordial pain [R07 .2] Start: 03-27-2022 Orders Only Todd Donald i, MD Work Phone: Cardiology Comment on above: Precordial pain (Christin iban Dx) Start: 03-20-2022 Refill Hannah obrien APRN.INTERNATIONAL ACCOUNT REPRESENTATIVE Work Phone: [facility] Comment on above: Refill Request Start: 02-19-2022 End: 02-19-2022 Patient encounter procedure Jayson ADDISON [facility] Start: 08-11-2018 End: 08-15-2018 Patient encounter status Abeba Keen ISIDRO.INTERNATIONAL ACCOUNT REPRESENTATIVE Work Phone: [facility] Work Phone: Procedures Date Procedure Procedure Detail Performing Clinician Start: 07-08-2023 History of repair of musculotendinous cuff of shoulder S/P right rotator cuff repair Prabhakar Villa MD Work Phone: Start: 07-08-2023 Arthrocentesis aspir&/inj major jt/bursa w/o us Prabhakar Villa MD Work Phone: Start: 02-08-2023 Cv strs tst xers&/or rx cont ecg trcg only Hannah Taylor APRN.INTERNATIONAL ACCOUNT REPRESENTATIVE Work Phone: Start: 01-11-2023 Myocardial spect multiple studies Todd Nunn MD Work Phone: Start: 04-11-2022 Myocardial spect multiple studies Todd Nunn MD Work Phone: Start: 02-19-2022 Colonoscopy Tyleraleksandar ADDISON Comment on above: 2 colon polyps, diverticulosis t/o colon , moderate IH Start: 02-23-2018 Esophagogastroduodenoscopy Sarah SNIDER Start: 01-09-2017 Adult depression screening assessment Hannah Taylor APRN.INTERNATIONAL ACCOUNT REPRESENTATIVE Work Phone: Start: 11-25-2014 Colonoscopy Jayson ARNOLDAM Start: 09-25-2014 Esophagogastroduodenoscopy Sarah SNIDER Start: 07-26-2014 Esophagogastroduodenoscopy Sarah SNIDER Start: 06-25-2014 Esophagogastroduodenoscopy Sarah SNIDER Start: 11-25-2004 thumb arthritis, right Tyler SALAM Start: 11-25-1957 Tonsillectomy Tyler SALAM Aortic valve structu re (body structure) Onel Isaacs Cataract extraction and insertion of intraocular lens Tyler SALAM Comment on above: BILATERAL cholecystecomy/umbil ical hernia surgery 3 Tyler SALAM Comment on above: 2005 left rotator cuff repair 1-2-14 Tyler SALAM Parotidectomy Sarah SNIDER right hand/wrist surgery Zach er SALAM right knee surgery Tyler CATALINA AM right rotator cuff repair Owen her SALAM sinus surgery Tyler SALAM Plan of Treatment Date Care Activity Detail Author Start: 08-12-2030 Urine microalbumin profile [facility] Start: 08-10-2027 LIPID SCREEN LIPID SCREEN [facility] Start: 02-04-2027 Diabetes Screening Diabetes Screening [facility] Start: 05-24-2026 LIPID SCREEN LIPID SCREEN [facility] Start: 04-05-2026 DIABETES SCREEN DIABETES SCREEN [facility] Start: 04-05-2026 Diabetes Screening Diabetes Screening [facility] Start: 02-06-2026 DIABETES SCREEN DIABETES SCREEN [facility] Start: 08-10-2025 DIABETES SCREEN DIABETES SCREEN [facility] Start: 03-24-2025 End: 03-24-2025 Patient encounter procedure 03/24/2025 11:00 AM EDT Office Visit [facility] [address] [id number] Abeba Keen APRN.INTERNATIONAL ACCOUNT REPRESENTATIVE [address] [place] [address] 3 month follow up [facility] Comment on above: 3 month follow up Start: 01-17-2025 Subsequent hospital visit by physician 01/17/2025 Hospital Encounter [facility] [address] [address] Angeles Decker MD [address] [place] [address] Brow ptosis, 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], Dermatochalasis of both upper eyelids [H02.831, H02.834] Surgery Center Comment on above: Brow ptosis, 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], Dermat ochalasis of both upper eyelids [H02.831, H02.834] Start: 12-28-2024 End: 12-28-2024 Patient encounter procedure 12/28/2024 11:15 AM EST Office Visit Plastic Surgery [address] [address] Angeles Decker MD [address] [place] [address] discuss surgery Plastic Surgery Comment on above: discuss surgery Start: 12-08-2024 End: 12-08-2024 Patient encounter procedure 12/08/2024 11:00 AM EST Office Visit Plastic Surgery [address] [address] Angeles Decker MD [address] [place] [address] consult for blepharloplasty and eyebrow Plastic Surgery Comment on above: consult for blepharloplasty and eyebrow Start: 12-01-2024 End: 03-02-2025 Alanine aminotransferase [Enzymatic activity/volume] in Serum or Plasma ALANINE AMINOTRANSFERASE / SGPT Lab Routine Essential hypertension Hyperlipidemia, unspecified hyperlipidemia type S/P AVR Expected: 12/01/2024, Expires: 03/02/2025 [facility] Comment on above: Expected: 12/01/2024, Expires: Start: 12-01-2024 End: 03-02-2025 Basic metabolic 2000 panel - Serum or Plasma BASIC METABOLIC PANEL Lab Routine Essential hypertension Hyperlipidemia, unspecified hyperlipidemia type S/P AVR Expected: 12/01/2024, Expires: 03/02/2025 [facility] Comment on above: Expected: 12/01/2024, Expires: Start: 12-01-2024 End: 03-02-2025 Lipid 1996 panel - Serum or Plasma LIPID PANEL BASIC Lab Routine Essential hypertension Hyperlipidemia, unspecified hyperlipidemia type S/P AVR Expected: 12/01/2024, Expires: 03/02/2025 [facility] Work Phone: Comment on above: Expected: 12/01/2024, Expires: Start: 11-25-2024 Advance Directive Discussion Advance Directive Discussion [facility] Start: 08-19-2024 End: 08-19-2024 Patient encounter procedure 08/19/2024 11:00 AM EDT Office Visit [facility] [address] [place] [address] Abeba Keen, ISIDRO.INTERNATIONAL ACCOUNT REPRESENTATIVE [address] [place] [address] 6 month f/u per pt [facility] Comment on above: 6 month f/u per pt Start: 07-26-2024 Influenza vaccination Influenza Vaccine (#1) [facility] Start: 05-24-2024 DIABETES SCREEN DIABETES SCREEN [facility] Start: 01-24-2024 End: 03-25-2024 Alanine aminotransferase [Enzymatic activity/volume] in Serum or Plasma ALT/SGPT Lab Routine Hyperlipidemia, unspecified hyperlipidemia type Essential hypertension Expected: 01/24/2024, Expires: 03/25/2024 [facility] Work Phone: Comment on above: Expected: 01/24/2024, Expires: 4 Start: 01-24-2024 End: 03-25-2024 Basic metabolic 2000 panel - Serum or Plasma BASIC METABOLIC PNL Lab Routine Hyperlipidemia, unspecified hyperlipidemia type Essential hypertension Expected: 01/24/2024, Expires: 03/25/2024 [facility] Work Phone: Comment on above: Expected: 01/24/2024, Expires: 4 Start: 01-24-2024 End: 03-25-2024 Lipid 1996 panel - Serum or Plasma LIPID PANEL BASIC Lab Routine Hyperlipidemia, unspecified hyperlipidemia type Essential hypertension Expected: 01/24/2024, Expires: 03/25/2024 [facility] Work Phone: Comment on above: Expected: 01/24/2024, Expires: Start: 01-11-2024 BP CONTROLLED (<130/80) BP CONTROLLED (<130/80) [facility] Start: 01-04-2024 Covid-19 Vaccine () Covid-19 Vaccine () [facility] Start: 11-25-2023 Advance Directive Discussion Advance Directive Discussion [facility] Start: 11-25-2023 Behavioral Health Screening Behavioral Health Screening [facility] Start: 11-25-2023 Depression Assessment Depression Assessment [facility] Start: 08-15-2023 BP CONTROLLED (<130/80) BP CONTROLLED (<130/80) [facility] Start: 07-26-2023 Covid-19 Vaccine () Covid-19 Vaccine () [facility] Start: 07-26-2023 Influenza vaccination [facility] Start: 03-13-2023 End: 05-13-2023 Comprehensive metabolic 2000 panel - Serum or Plasma COMP METABOLIC PANEL Lab Routine Hyperlipidemia, unspecified hyperlipidemia type Expected: 03/13/2023, Expires: 05/13/2023 [facility] Work Phone: Comment on above: Expected: 03/13/2023, Expires: 3 Start: 03-13-2023 End: 05-13-2023 Lipid 1996 panel - Serum or Plasma LIPID PANEL BASIC Lab Routine Hyperlipidemia, unspecified hyperlipidemia type Expected: 03/13/2023, Expires: 05/13/2023 [facility] Work Phone: Comment on above: Expected: 03/13/2023, Expires: 3 Start: 02-21-2023 End: 04-23-2023 Basic metabolic 2000 panel - Serum or Plasma BASIC METABOLIC PNL Lab Routine Elevated serum creatinine Expected: 02/21/2023, Expires: 04/23/2023 [facility] Work Phone: Comment on above: Expected: 02/21/2023, Expires: 3 Start: 02-12-2023 End: 04-14-2023 Comprehensive metabolic 2000 panel - Serum or Plasma COMP METABOLIC PANEL Lab Routine S/P AVR Expected: 02/12/2023, Expires: 04/14/2023 [facility] Work Phone: Comment on above: Expected: 02/12/2023, Expires: 3 Start: 02-12-2023 End: 04-14-2023 Lipid 1996 panel - Serum or Plasma LIPID PANEL BASIC Lab Routine S/P AVR Essential (primary) hypertension Expected: 02/12/2023, Expires: 04/14/2023 [facility] Work Phone: Comment on above: Expected: 02/12/2023, Expires: 3 Start: 02-05-2023 BP CONTROLLED (<130/80) BP CONTROLLED (<130/80) [facility] in Start: 11-25-2022 ADVANCE DIRECTIVE DISCUSSION ADVANCE DIRECTIVE DISCUSSION [facility] Start: 11-25-2022 DEPRESSION ASSESSMENT DEPRESSION ASSESSMENT [facility] Start: 07-26-2022 Influenza vaccination INFLUENZA (#1) [facility] Start: 05-03-2022 COVID-19 VACCINE (5 - Booster for Pfizer series) COVID-19 VACCINE (5 - Booster for Pfizer series) [facility] Start: 04-11-2022 End: 06-02-2023 NM CARDIAC PERF STRESS/EXERCISE NM CARDIAC PERF STRESS/EXERCISE Radiology Routine Precordial pain Expected: 04/11/2022, Expires: 04/26/2023 [facility] Work Phone: Comment on above: Expected: 04/11/2022, Expires: 3 Start: 11-25-2021 ADVANCE DIRECTIVE DISCUSSION ADVANCE DIRECTIVE DISCUSSION [facility] Start: 11-25-2021 DEPRESSION ASSESSMENT DEPRESSION ASSESSMENT [facility] Start: 09-16-2020 SHINGRIX VACCINE (2 of 2) SHINGRIX VACCINE (2 of 2) [facility] Start: 06-10-2018 Pneumococcal Vaccine: 65+ (2 - PPSV23 or PCV20) Pneumococcal Vaccine: 65+ (2 - PPSV23 or PCV20) [facility] Start: 06-10-2018 PNEUMOCOCCAL: 65+ (2 - PPSV23 if available, else PCV20) PNEUMOCOCCAL: 65+ (2 - PPSV23 if available, else PCV20) [facility] Start: 06-10-2018 PNEUMOCOCCAL: 65+ (2 - PPSV23 or PCV20) PNEUMOCOCCAL: 65+ (2 - PPSV23 or PCV20) [facility] Start: 01-09-2018 Adult depression screening assessment DEPRESSION SCREENING [facility] Start: 2011 PNEUMOVAX AGE 65 AND OVER WITH 5YR LOOKBACK (#1) PNEUMOVAX AGE 65 AND OVER WITH 5YR LOOKBACK (#1) [facility] Start: 1991 COLOGUARD (FIT-DNA) COLOGUARD (FIT-DNA) [facility] Start: 1991 Colonoscopy COLONOSCOPY [facility] Start: 1991 COLORECTAL CANCER SCREENING COLORECTAL CANCER SCREENING [facility] Start: [address] COLONOGRAPHY [facility] Start: 1991 FECAL OCCULT BLOOD FECAL OCCULT BLOOD [facility] Start: 1991 SIGMOIDOSCOPY SIGMOIDOSCOPY [facility] Start: 1964 ANNUAL PCP TEAM CHRONIC DISEASE VISIT ANNUAL PCP TEAM CHRONIC DISEASE VISIT [facility] Start: 1964 Anxiety Screening Anxiety Screening [facility] Start: 1964 BP CONTROLLED (<130/80) BP CONTROLLED (<130/80) [facility] Start: 1964 Depression Screening Depression Screening [facility] Start: 1964 HEPATITIS C SCREENING HEPATITIS C SCREENING [facility] Start: 1964 Hepatitis C screening Hepatitis C Screening [facility] Blepharoplasty upper eyelid BLEPHAROPLASTY UPPER BILATERAL Brow ptosis, bilateral Dermatochalasis of both upper eyelids [facility] A60 End: 01-08-2024 ECG COMPLETE ECG COMPLETE ECG Routine Chest pain, unspecified type 1 Occurrences starting 01/08/2023 until 01/08/2024 [facility] Work Phone: Comment on above: 1 Occurrences starting 01/08/2023 until 01/08/2024 End: 08-15-2023 Echocardiography ECHO Cardiology Routine S/P AVR 1 Occurrences starting 08/15/2022 until 08/15/2023 [facility] Work Phone: Comment on above: 1 Occurrences starting 08/15/2022 until 08/15/2023 End: 03-13-2024 Echocardiography ECHO Cardiology Routine S/P ascending aortic replacement Nonrheumatic aortic valve insufficiency 1 Occurrences starting 03/13/2023 until 03/13/2024 [facility] Work Phone: Comment on above: 1 Occurrences starting 03/13/2023 until 03/13/2024 NM CARDIAC PERF STRESS/PHARM NM CARDIAC PERF STRESS/PHARM Radiology Routine Chest pain, unspecified type Ordered: 01/08/2023 [facility] Work Phone: Comment on above: Ordered: 01/08/2023 Rhytidectomy glabell ar frown lines BROWLIFT Brow ptosis, bilateral Dermatochalasis of both upper eyelids [facility] A60 [facility] Immunizations Immunization Date Immunization Notes Care Provider Jonathon fowler 08-15-2023 influenza virus vacc ine, unspecified formulation Abeba Keen APRN.INTERNATIONAL ACCOUNT REPRESENTATIVE Work Phone: [facility] 09-11-2022 influenza virus vacc ine, unspecified formulation Onel Dae [facility] 09-11-2022 SARS-CoV-2 (COVID-19 ) [id number] Onel Hoy [facility] 03-08-2022 SARS-CoV-2 (COVID-19 ) mRNA-1273 vaccine Onel Hoy [facility] 10-13-2021 SARS-CoV-2 (COVID-19 ) mRNA-1273 vaccine Onel Hoy [facility] 09-28-2021 influenza virus vacc ine, unspecified formulation Onel Hoy [facility] 08-25-2021 influenza virus vacc ine, unspecified formulation Tyler SALAM [facility] 02-10-2021 SARS-CoV-2 (COVID-19 ) mRNA BNT-162b2 vax Onel Hoy [facility] 01-20-2021 SARS-CoV-2 (COVID-19 ) mRNA BNT-162b2 vax Onel Hoy [facility] Comment on above: Result Comment: 2022: [id number] 09-24-2020 pneumococcal polysaccharide vaccine, 23 valent Onel Hoy [facility] 09-21-2020 zoster vaccine recombinant Onel Hoy [facility] 08-12-2020 tetanus toxoid, redu richar diphtheria toxoid, and acellular pertussis vaccine, adsorbed Onel Hoy [facility] 08-03-2020 influenza virus vacc ine, unspecified formulation Onel Hoy [facility] 07-22-2020 zoster vaccine recombinant Onel Hoy [facility] 09-15-2019 influenza virus vacc ine, unspecified formulation Onel Hoy [facility] 07-22-2018 influenza virus vacc ine, unspecified formulation Onel Hoy [facility] 07-22-2018 influenza, high dose seasonal, preservative-free Hannah Taylor EXHAUST WORKER[employer] Work Phone: [facility] Work Phone: 10-11-2017 influenza virus vacc ine, unspecified formulation Onel Hoy [facility] 10-11-2017 Seasonal trivalent influenza vaccine, adjuvanted, preservative free Hannah Taylor EXHAUST WORKER.[facility] Work Phone: [facility] Work Phone: 06-10-2017 pneumococcal conjuga te vaccine, 13 valent Hannah Taylor EXHAUST WORKER.[facility] Work Phone: [facility] Work Phone: 12-05-2015 influenza virus vacc ine, unspecified formulation Onel Hoy [facility] 12-05-2015 influenza, seasonal, injectable, preservative free Hannah Taylor EXHAUST WORKER.[facility] Work Phone: [facility] Work Phone: 10-05-2014 influenza virus vacc ine, unspecified formulation Onel Hoy [facility] 10-05-2014 influenza, injectabl e, quadrivalent, contains preservative Hannah Taylor EXHAUST WORKER.[facility] Work Phone: [facility] Work Phone: 08-28-2005 tetanus toxoid, adsorbed Chr istina Taylor EXHAUST WORKER.[facility] Work Phone: [facility] Work Phone: Payers Date Payer Category Payer Private Health Insurance HUMANA HUMANA MEDICARE SUPPLEMENT [id number] 2015-Present [phone] [address] [address] [place] [address] Indemnity [id number] 2015 Private Health Insurance HUMANA HUMANA MEDICARE SUPPLEMENT [id number] 2015-Present [phone] [address] [address] [place] [address] Indemnity [id number] 2015 Private Health Insurance [id number] 2013 Medicare MEDICARE MEDICAR E A AND B [id number] 2013-Present [phone] [place] [address] Medicare [id number] 2013 Medicare MEDICARE MEDICAR E A AND B [id number] 2013-Present [phone] [place] [address] Medicare [id number] 2013 Medicare [id number] 2013 Unknown [facility] OCCUPATIONAL HEALTH LINK [id number] 07/26/2013-Present [phone] [place] [id number] [facility] [id number] 1945 Unknown [id number] Social History Date Type Detail Facility Start: 02-07-2022 End: 12-01-2024 Tobacco smoking status Ex-smoker (finding) [facility] Start: 02-08-2023 End: 07-08-2023 Sex Assigned At Male [facility] Start: 08-11-1965 End: 08-11-1990 History of tobacco use Current smoker [facility] Start: 08-11-1965 End: 08-11-1990 History of tobacco use Cigarette Smoker [facility] Start: 10-29-2016 End: 07-08-2023 Cigarettes smoked current (pack per day) - Reported 1.5 [facility] Start: 10-29-2016 End: 12-01-2024 Tobacco use and exposure Smokeless tobacco non-user [facility] Start: 02-09-2022 End: 12-22-2024 Alcohol intake Current drinker of alcohol (finding) [facility] Start: 10-29-2016 History SDOH Alcohol Comment social [facility] Start: 1945 Sex Assigned At Male C [facility] Start: 04-01-2022 End: 08-15-2022 Exposure to SARS-CoV-2 (event) Not sure [facility] Tobacco smoking status Never [facility] Start: 08-15-2022 Tobacco Comment Quit over 30 yrs ago [facility] Start: 07-07-2019 Gender identity Identifies as male gender (finding) [facility] Start: 07-07-2019 Sexual orientation Heterosexual (jovan kaplan) [facility] Medical Equipment Procedure Code Equipment Code Equipment Original Text Equipment Identifier Dates Graft Gelweave V alsalva 30mm 15cm Cardiovascular Woven Aortic Root - [id number] Start: 08-12-2018 [place] Thk1.65mm P tfe 4x.5in Cardiovascular Sterile - [id number] Start: 08-12-2018 Valve Aort 27mm Crp-Ed Thfx - [id number] Start: 08-12-2018 Goals Date Patient Goal Desired Activity /State Personal health goal Functional Status Date Assessment Result Facility 08-14-2024 Functional Status N/A [facility] [place] Clinical Notes 08-15-2018 to 12-22-2024 Sarah Huitron OD - 12/22/2024 9:33 AM Abeba Coon APRN.TRACEY - 12/01/2024 10:18 AM ESTTelephone Encounter - Abeba Keen APRN.CNP - 05/26/2024 5:47 PM EDTPatient InstructionsLaboratory Note Date & Type Note Facility 12-22-2024 Note HNO ID: [id number] Author: CHARAN, SARAH, OD Service: ? Author Type: BUILDING CONSTRUCTION INSPECTOR Type: Progress Notes Filed: 12/22/2024 09:40 Note Text: (H04.129) Dry eye (primary encounter diagnosis) Comment: Normal Dash's test result OD 25 mm OS 22 mm Patient has secondary dryness due to reduced tear production Lasik use and evaporation meibomian gland dysfunction Plan: increase lubrication and add gel qhs and treat eyelids with Warm compress and lid scrubs Could consider punctal plug if needed (H02.88A, H02.88B) Meibomian gland dysfunction (MGD) of upper and lower lids of both eyes Comment: mild to moderate OU Plan: treat eyelids with Warm compress and lid scrubs Can consider oral medication in future if needed (H02.831, H02.834) Dermatochalasis of both upper eyelids Comment: OS > OD Plan: follow up for lid procedure (Z96.1) Pseudophakia Comment: excellent result from cataract surgery Plan: monitor I have confirmed and edited as necessary the relevant ophthalmic history, ROS, and the neuro exam findings as obtained by others. I have seen and examined this patient. I have discussed the case and the management of this patient's care with the Resident/Fellow, if applicable. I also have reviewed and agree with the assessment and plan as stated above and agree with all of its relevant components. Sarah Huitron, OD December 22, 2024 9:38 AM [facility] 12-22-2024 History of Present illness Narrative (H04.129) Dry eye (primary encounter diagnosis) Comment: Normal Dash's test result OD 25 mm OS 22 mm Patient has secondary dryness due to reduced tear production Lasik use and evaporation meibomian gland dysfunction Plan: increase lubrication and add gel qhs and treat eyelids with Warm compress and lid scrubs Could consider punctal plug if needed (H02.88A, H02.88B) Meibomian gland dysfunction (MGD) of upper and lower lids of both eyes Comment: mild to moderate OU Plan: treat eyelids with Warm compress and lid scrubs Can consider oral medication in future if needed (H02.831, H02.834) Dermatochalasis of both upper eyelids Comment: OS > OD Plan: follow up for lid procedure (Z96.1) Pseudophakia Comment: excellent result from cataract surgery Plan: monitor I have confirmed and edited as necessary the relevant ophthalmic history, ROS, and the neuro exam findings as obtained by others. I have seen and examined this patient. I have discussed the case and the management of this patient's care with the Resident/Fellow, if applicable. I also have reviewed and agree with the assessment and plan as stated above and agree with all of its relevant components. Sarah Huitron, OD December 22, 2024 9:38 AM documented in this encounter [facility] 12-08-2024 Note HNO ID: [id number] Author: ANGELES DECKER MD Service: ? Author Type: Physician Type: Progress Notes Filed: 12/08/2024 14:47 Note Text: BLEPHAROPLASTY Patient Evaluation and Operative Planning CC: ....Consult.Bilateral upper and brow lift ......... ? HPI: Wally is a 79 year old male who presents today for evaluation of bilateral upper blepharoplasty and brow lift. Patient was seen by a plastic surgeon in [place] and was approved for surgery but would like a second opinion. Patient has had multiple seborrheic keratosis that was treated by a cast iron drain pipe layer with liquid nitrogen. Patient reports that he has difficulty with vision with left eye being worse than the right d/t the weight of his eyelids. Patient is not concerned about the appearance of his eyes but was told by his eye doctor that since his eyelids are drooping and it is causing issues with his vision and would benefit from a blepharoplasty and brow lift. Occupation: Retired Patient Concerns: Tired appearance: yes [] no [x] Drooping upper eyelids: yes [x] no [] Bags upper eyelids: yes [] no [x] Skin wrinkling lids yes [] no [x] Discoloration lower lids yes [] no [x] Tearing eyes yes [] no [x] Dry eyes yes [x] no [] Other: Pain: Now 0[x] 1[] 2[] 3[] 4[] 5[] 6[] 7[] 8[] 9[] 10 Average 0[x] 1[] 2[] 3[] 4[] 5[] 6[] 7[] 8[] 9[] 10[] Rest 0[x] 1[] 2[] 3[] 4[] 5[] 6[] 7[] 8[] 9[] 10[] Eye movement 0[x] 1[] 2[] 3[] 4[] 5[] 6[] 7[] 8[] 9[] 10[] Eye Drops: yes [x] no [] BID Glasses: yes [x] no [] (need for []far-myopia []near correction) wears only when driving Contacts: yes [] no [x] Objective: PAST SURGICAL HISTORY Procedure Laterality Date CHOLECYSTECTOMY HX with concurrent umbilical hernia repair HAND SURGERY HX Right piece of bone removed and tendon repair for arthritis KNEE ARTHROSCOPY Right fluid removed SHOULDER SURGERY HX Bilateral rotator cuff SHX AORTIC VALVE REPLACEMENT 08/12/2018 SINUS SURGERY HX PAST MEDICAL HISTORY Diagnosis Date Aortic insufficiency Ascending aortic aneurysm (HCC) Dilated aortic root (HCC) History of GI bleed history of bleeding ulcer HLD (hyperlipidemia) Hypertension 11/25/1989 Mitral insufficiency Paroxysmal atrial fibrillation (HCC) 08/15/2018 Tricuspid insufficiency Current Outpatient Medications Medication Sig Dispense Refill irbesartan (AVAPRO) 300 mg tablet Take 1 tablet by mouth daily at bedtime. 90 tablet 3 hydroCHLOROthiazide 25 mg tablet Take 1 tablet by mouth once daily. 90 tablet 3 metoprolol succinate ER (TOPROL XL) 25 mg 24 hr tablet take 1 tablet by mouth every evening 90 tablet 3 iron bisgly,ps-FA-B-C#12-succ 65 mg-65 mg -1,000 mcg (24) tab Take 65 mg by mouth once weekly aspirin, enteric coated (ASPIRIN, ENTERIC COATED) 81 mg EC tablet Take 81 mg by mouth once daily. OTC PRODUCT once daily. OTC Force Factor take 3 tablet once per day eb-pa-X-theanine-herb no.310 (AIRBORNE EVERYDAY STRESS AWAY) 1,000 mg-200 mg-360 mg pwpk Take by mouth. acetaminophen (TYLENOL) 325 mg tablet Take 650 mg by mouth as needed for pain. sodium chloride (SALINE MIST NASAL) Use in the nose. azithromycin (ZITHROMAX) 500 mg tablet Take 1 tablet by mouth once daily. Take one tablet 60 minutes prior to procedure. 1 tablet 0 multivitamin tablet Take 1 tablet by mouth [...] No current facility-administered medications for this visit. There were no vitals taken for this visit. ALLERGIES Allergen Reactions Lisinopril Cough There is no height or weight on file to calculate BMI. Estimated body surface area is 2.1 meters squared as calculated from the following: Height as of 07/08/23: 177.8 cm (5' 10 ). Weight as of 02/11/24: 89.5 kg (197 lb 4.8 oz). No results found for: HBA1C Last 10 Encounter BP Readings: Date: BP: 02/11/2024 128/80 08/13/2023 132/85 02/08/2023 132/84 02/06/2023 123/84 01/11/2023 110/64 08/15/2022 114/72 02/05/2022 108/60 04/12/2021 108/76 10/12/2020 124/68 08/17/2020 122/78 Latest Ref Rng AND Units 08/27/2018 09/11/2018 02/06/2023 CBC WBC 3.70 - 11.00 k/uL 10.55 8.68 7.89 RBC 4.20 - 6.00 m/uL 3.63 4.04 5 (more content not included)... [facility] 12-01-2024 Note HNO ID: [id number] Author: ABEBA KEEN APRN.INTERNATIONAL ACCOUNT REPRESENTATIVE Service: ? Author Type: Nurse Practitioner Type: Progress Notes Filed: 12/08/2024 17:19 Note Text: [facility] [place] [facility] Department of Cardiovascular Medicine SECTION OF PREVENTIVE CARDIOLOGY 12/01/2024 Wally Barrow CURRENT MEDS: Current Outpatient Medications Medication Sig simvastatin (ZOCOR) 20 mg tablet daily at bedtime. furosemide (LASIX) 20 mg tablet Take 20 mg by mouth once daily. irbesartan (AVAPRO) 300 mg tablet Take 1 tablet by mouth daily at bedtime. iron bisgly,ps-FA-B-C#12-succ 65 mg-65 mg -1,000 mcg (24) tab Take 65 mg by mouth once weekly aspirin, enteric coated (ASPIRIN, ENTERIC COATED) 81 mg EC tablet Take 81 mg by mouth once daily. OTC PRODUCT once daily. OTC Force Factor take 3 tablet once per day dp-zn-W-theanine-herb no.310 (AIRBORNE EVERYDAY STRESS AWAY) 1,000 mg-200 [...] visit. ALLERGIES: ALLERGIES Allergen Reactions Lisinopril Cough CHIEF COMPLAINT: Wally Barrow is a 79 year old White male seen today. 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 Briggs, and postoperative atrial fibrillation. Patient presents for ongoing management of cardiovascular risk factors. Pt was in a crouched position in the basement. He lost his balance and tipped backwards. No injury. He also slipped in water and fell. No injury. Pt sees his PCP with his every 1-2 months. His recently needed to discontinue beta blockers and HCTZ due to orthostatic hypotension and low HR. Pt became concerned that he may also develop those symptoms so he discontinued both medications. He is in PT for right hip pain. Chest pain: No Claudication: No SOB: No Orthopnea: No PND: No LE: Resolved with furosemide. Wearing compression stockings. Began when sleeping in recliner for 's hospitalization. Lightheadedness/dizziness: occasionally, once per week with position change. Palpitations:No Bleeding/bruising: No CARDIAC RISK FACTORS: History [...] EXAMINATION Vital Signs and General Appearance BP 148/95 (BP Site: Left Arm, BP Position: Sitting, BP Cuff Size: Regular Adult) Pulse 70 Ht 177.8 cm (5' 10 ) Wt 83.9 kg (185 lb) SpO2 95% BMI 26.54 kg/m? BMI 26.54 kg/(m2) PHYSICAL EXAMINATION: General appearance: well appearing, alert, in no acute distress, and well-hydrated, well nourished Carotid Pulses: Left:2+, Right: 2+, Bruit: No Lungs: lungs clear to auscultation no wheezing or rhonchi Heart:S1/ (more content not included)... [facility] 12-01-2024 History of Present illness Narrative Images from the original note were not included. [facility] [place] [facility] Department of Cardiovascular Medicine SECTION OF PREVENTIVE CARDIOLOGY 12/01/2024 Wally Barrow CURRENT MEDS: Current Outpatient Medications Medication Sig simvastatin (ZOCOR) 20 mg tablet daily at bedtime. furosemide (LASIX) 20 mg tablet Take 20 mg by mouth once daily. irbesartan (AVAPRO) 300 mg tablet Take 1 tablet by mouth daily at bedtime. iron bisgly,ps-FA-B-C#12-succ 65 mg-65 mg -1,000 mcg (24) tab Take 65 mg by mouth once weekly aspirin, enteric coated (ASPIRIN, ENTERIC COATED) 81 mg EC tablet Take 81 mg by mouth once daily. OTC PRODUCT once daily. OTC Force Factor take 3 tablet once per day ma-wb-L-theanine-herb no.310 (AIRBORNE EVERYDAY STRESS AWAY) 1,000 mg-200 [...] visit. ALLERGIES: ALLERGIES Allergen Reactions Lisinopril Cough CHIEF COMPLAINT: Wally Barrow is a 79 year old White male seen today. 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 Briggs, and postoperative atrial fibrillation. Patient presents for ongoing management of cardiovascular risk factors. Pt was in a crouched position in the basement. He lost his balance and tipped backwards. No injury. He also slipped in water and fell. No injury. Pt sees his PCP with his every 1-2 months. His recently needed to discontinue beta blockers and HCTZ due to orthostatic hypotension and low HR. Pt became concerned that he may also develop those symptoms so he discontinued both medications. He is in PT for right hip pain. Chest pain: No Claudication: No SOB: No Orthopnea: No PND: No LE: Resolved with furosemide. Wearing compression stockings. Began when sleeping in recliner for 's hospitalization. Lightheadedness/dizziness: occasionally, once per week with position change. Palpitations:No Bleeding/bruising: No CARDIAC RISK FACTORS: History [...] EXAMINATION Vital Signs and General Appearance BP 148/95 (BP Site: Left Arm, BP Position: Sitting, BP Cuff Size: Regular Adult) Pulse 70 Ht 177.8 cm (5' 10 ) Wt 83.9 kg (185 lb) SpO2 95% BMI 26.54 kg/m BMI 26.54 kg/(m^2) PHYSICAL EXAMINATION: General appearance: well appearing, alert, in no acute distress, and well-hydrated, well nourished Carotid Pulses: Left:2+, Right: 2+, Bruit: No Lungs: lungs clear to auscultation no wheezing or rhonchi Heart:S1/S2, RRR, +systolic murmur Lower Extremities Pulses: Right Posterior Tibial: 2+, Left Posterior Tibial: 2+, Edema: Wearing compression stockings, No significant edema Clinical Test Results Last ECHO Result Conclusion ECHO Collected: 12/01/2024 3:49 PM (Final result) Impression: CONCLUSIONS: - Exam indication: AVR - The left ventricle is normal in size. Left ventricular systolic function is normal. EF = 67 5% (2D biplane) - The right ventricle is normal in size. Right ventricular systolic function is normal. - The right atrial cavity is dilated. - The visualized aorta is dilated with a maximal dimension of 4.3 cm. - There is 1-2+ MR. - There is moderate (2+) tricuspid valve regurgitation. 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 There is no aorticvalve regurgitation. The peak gradient is 24 mmHg, the mean gradient is 13 mmHg and the dimensionless valve index is 0.46. Prior Pk/Mn gradients of 23/13 mmHg. - Estimated right ventricular systolic pressure is 35 mmHg consistent with mild pulmonary hypertension. Estimated right atrial pressure is 3 mmHg based on IVC assessment. - Exam was compared with the prior echocardiographic exam performed on 05/15/2023. Stable aortic prosthesis. TR slightly more prominent / better visualized on the current study. Similar estimated RVSP * * * Final * * * Last EKG Result Conclusion ECG COMPLETE Collected: 01/11/2023 11:21 AM (Final result) Impression: NORMAL SINUS RHYTHM LEFT AXIS DEVIATION ABNORMAL ECG Confirmed by LEEANNE SOLIZ, ARASELI ([id number]) on 01/14/2023 10:15:12 AM Ejection Fraction: Ejection [...] 74 - 99 mg/dL Final Comment: The [place] Diabetes Association (ADA) provides guidance for cutoff [...] Standards of Medical Care in Diabetes 2016, [place] Diabetes Association. Diabetes Care. 2016.39(Suppl 1). TSH [...] for Disease Control and Prevention and the [place] Heart Association. Circulation 2003;107:499-511. Creatinine Date Value [...] IMPRESSION: In summary, Mr. Barrow is a 79 year old male who was referred to the Preventive Cardiology and Rehabilitation Program because of , Dyslipidemia and Value disease PLAN: The results of this [...] lightheadedness and decreased motivation to start daily department mgr. Per Dr. Portillo, repeat echo 04/2025. Pt will repeat earlier to coordinate with his . A nuclear stress test 12/2022 showed no ischemia. EF 78%. Hyperlipidemia: LDL goal <100, no CAD on cath. PCP added Simvastatin 20 mg 1-2 months ago for cardiac risk reduction per Pt request. This is tolerated well with no muscle aches or weakness. Recent Labs 02/05/24 1128 04/05/23 1322 01/31/23 1250 08/10/22 1412 CHOL 156 138 173 157 TG 199* 159* 103 126 HDL 37* 35* 38* 39* LDL 79 71 114* 93 PLAN: -Repeat labs. Pt will send results from his PCP. Anti-platelet / Anti-coagulant: On aspirin 81mg daily. Take with food. Hypertension: Normal BP < 130/80. No home readings available. PCP discontinued metoprolol and HCTZ 2-3 months ago due to his 's orthostatic hypotension. Furosemide was added due to LE edema that developed while caring for his in the hospital and sleeping in recliner for several nights. Pt is also on Irbesartan. BP at home is 122/78 Date: BP: 12/01/2024 148/95 02/11/2024 128/80 08/13/2023 132/85 02/08/2023 132/84 02/06/2023 123/84 Plan: -Continue Irbesartan, lasix -Recommend home monitoring. Notify the office if BP averages > 130/80 Exercise/Weight/Nutrition: ExRx 01/2023. Active caring for his but no structured exercise. Weight loss of 12 lb since last visit. Pt is trying to eat smaller portions. He will drink 1 Ensure if not adequate nutrition for the day. PLAN: -Increase regular exercise. Optimal goal is [...] Methods Patient Verbalized: Understanding I personally spent 25 minutes in total time involved in the management and care of this patient. Abeba Keen APRN.INTERNATIONAL ACCOUNT REPRESENTATIVE Addendum December 01, 2024 10:37 PM Echo showed EF of 67%. The aorta is dilated with a maximal dimension of 4.3 cm. 1-2+MR, moderate 2+ TR. No aortic valve regurgitation. Pk 24/Mn 13 mmHg. Compared to prior echo, Stable aortic prosthesis. TR slightly more prominent / better visualized on the current study. Similar estimated RVSP Will discuss with Dr. Portillo. 12/01/24 Echo CONCLUSIONS: - Exam indication: AVR - The left ventricle is normal in size. Left ventricular systolic function is normal. EF = 67 5% (2D biplane) - The right ventricle is normal in size. Right ventricular systolic function is normal. - The right atrial cavity is dilated. - The visualized aorta is dilated with a maximal dimension of 4.3 cm. - There is 1-2+ MR. - There is moderate (2+) tricuspid valve regurgitation. 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 There is no aorticvalve regurgitation. The peak gradient is 24 mmHg, the mean gradient is 13 mmHg and the dimensionless valve index is 0.46. Prior Pk/Mn gradients of 23/13 mmHg. - Estimated right ventricular systolic pressure is 35 mmHg consistent with mild pulmonary hypertension. Estimated right atrial pressure is 3 mmHg based on IVC assessment. - Exam was compared with the prior CC echocardiographic exam performed on 05/15/2023. Stable aortic prosthesis. TR slightly more prominent / better visualized on the current study. 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 [facility] Comment on above: Result Comment: Elec tronically Signed By: Sarah SNIDER MD\Date and Time Signed: 08/14/24 16:26 EDT 05-26-2024 Telephone encounter Note Pt phoned regarding his . Spoke with Pt and documented in her chart. Abeba Keen APRN.CNP [facility] 05-26-2024 Miscellaneous Notes Pt phoned regarding his . Spoke with Pt and documented in her chart. Abeba Keen APRN.CNP Pt calling to speak with Abeba, he asks that she please return his call when she gets in on Saturday. Cb#:[phone] documented in this encounter [facility] 05-22-2024 Telephone encounter Note Pt calling to speak with Abeba, he asks that she please return his call when she gets in on Saturday. #:[phone] [facility] 02-11-2024 Note HNO ID: [id number] Author: ABEBA KEEN APRN.INTERNATIONAL ACCOUNT REPRESENTATIVE Service: ? Author Type: Nurse Practitioner Type: Progress Notes Filed: 02/25/2024 12:19 Note Text: [facility] [place] [facility] Department of Cardiovascular Medicine SECTION [...] Factor take 3 tablet once per day mu-tr-M-theanine-herb no.310 (AIRBORNE EVERYDAY STRESS AWAY) 1,000 mg-200 [...] without murmur, nor (more content not included)... [facility] 02-11-2024 History of Present illness Narrative Images from the original note were not included. [facility] [place] [facility] Department of Cardiovascular Medicine SECTION [...] Factor take 3 tablet once per day fg-th-Q-theanine-herb no.310 (AIRBORNE EVERYDAY STRESS AWAY) 1,000 mg-200 [...] RV appears prominent on some views. - Fayn-Griffiths prosthetic aortic valve (size #27). There is [...] 74 - 99 mg/dL Final Comment: The [place] Diabetes Association (ADA) provides guidance for cutoff [...] Standards of Medical Care in Diabetes 2016, [place] Diabetes Association. Diabetes Care. 2016.39(Suppl 1). TSH [...] for Disease Control and Prevention and the [place] Heart Association. Circulation 2003;107:499-511. Creatinine Date Value [...] lightheadedness and decreased motivation to start daily department mgr. Will discuss timing of repeat echo with [...] Abeba Keen APRN.TRACEY documented in this encounter [facility] 11-11-2023 Miscellaneous Notes Call from patient requesting refill. Requested Prescriptions Pending Prescriptions Disp Refills hydroCHLOROthiazide 25 mg tablet 90 tablet 3 Sig: Take 1 tablet by mouth once daily. Patient last seen 08/17 Indira Zavala documented in this encounter [facility] 08-13-2023 History of Present illness Narrative Images from the original note were not included. [facility] [place] [facility] Department of Cardiovascular Medicine SECTION [...] Factor take 3 tablet once per day sn-dr-O-rola-herb no.310 (AIRBORNE EVERYDAY STRESS AWAY) 1,000 mg-200 [...] tablet 60 minutes prior to procedure. omega 1-pmv-isr-fish oil (FISH OIL) 900-1,400 mg cpDR Take [...] the prior CC echocardiographic exam performed on 08/16/2022. Similar findings. * * * Final * * * Last EKG Result Conclusion ECG COMPLETE Collected: 01/11/2023 11:21 AM (Final result) Impression: NORMAL SINUS RHYTHM LEFT AXIS DEVIATION ABNORMAL ECG Confirmed by LEEANNE SOLIZ, ARASELI ([id number]) on 01/14/2023 10:15:12 AM Ejection Fraction: Ejection [...] 74 - 99 mg/dL Final Comment: The [place] Diabetes Association (ADA) provides guidance for cutoff [...] Standards of Medical Care in Diabetes 2016, [place] Diabetes Association. Diabetes Care. 2016.39(Suppl 1). TSH [...] for Disease Control and Prevention and the [place] Heart Association. Circulation 2003;107:499-511. Creatinine Date Value [...] and care of this patient. Abeba Keen APRN.INTERNATIONAL ACCOUNT REPRESENTATIVE documented in this encounter [facility] 07-08-2023 History of Present illness Narrative Associated Order(s): Large Joint Arthro/Inj: R shoulder joint Post-Procedure Diagnose(s): S/P right rotator cuff repair; Traumatic complete tear of right rotator cuff, initial encounter Images from the original note were not included. Prabhakar RiveraM.Sc. Demand Generator Manager of Orthopaedic Surgery at [place] [address] Office: [phone] Consult requested for an opinion regarding the evaluation and treatment of the above patient. My final impression and recommendations will be communicated back to the requesting physician by way of the shared medical record or letter via US mail. Patient info: Wally Barrow ([id number]) Service date: 07/08/2023 Referred by: No referring [...] physical therapy as well as topical and okes-woh-qlpqhsm medications. Wally reports a current pain level [...] 2 capsule by mouth twice per day. yi-gu-jncP-ukrGi-Pid-Gzx-hc124 334-1.7 mg chew Take 1 tablet by [...] Factor take 3 tablet once per day tr-mr-Q-rola-herb no.310 (AIRBORNE EVERYDAY STRESS AWAY) 1,000 mg-200 [...] tablet 60 minutes prior to procedure. omega 0-fur-yer-fish oil (FISH OIL) 900-1,400 mg cpDR Take [...] shoulder joint Informed Consent Consent Obtained: Verbal [place] Protocol A moment to CARE was completed. [...] equipment, possible retained foreign bodies accounted for. Prabhakar Villa M.D. M.M.Sc. Shoulder and Elbow Surgeon Orthopaedic Surgery Department [place], [place] [address] Tell: [phone] Appt:[phone] 07/08/2023 10:14 AM CC: documented in this encounter [facility] 06-04-2023 Miscellaneous Notes June 04, 2023 Patient Contact Number: [phone] Patient last seen within the last year: Yes Date of last office visit: 02/08/2023 Reason For Call: Medication Issue/Question:Patient calling to ask if it okay to stop Asprin 5 days prior to MRI with injection scheduled for 06/09 Physician: Juan F Portillo MD Patient was informed that non-urgent calls may be returned within the next three business days. Yes Bekah Murphy documented in this encounter [facility] 03-13-2023 Miscellaneous Notes I called spoke with patient, and informed orders for labs and echo are now in chart so can schedule to have done. Roselyn Orders for labs and echo placed Clarisse Gee APRN.INTERNATIONAL ACCOUNT REPRESENTATIVE March 12, 2023 Patient Contact Number: [phone] Patient last seen within the last year: [...] Yes Roselyn Aden documented in this encounter [facility] 02-08-2023 Instructions Jamarcus Watts, Storage Specialist - 02/08/2023 2:15 PM EDT Images from [...] outside the ones listed below): *Smart Watch (Glow, Asanti, eHealth Systems, etc); *POLAR chest strap (model: H10 with any POLAR wrist watch, such as the POLAR UNITE); *Garmin chest strap (model: HRM-Pro Plus with any Garmin watch, such as the Riboxx 5); *Circle Technology 5 or 7 sport watch *Commercial heart [...] your symptoms when standing (evidence-based research: Katherin Burleson, Isidro VE, Yasir LJ, et al. Water drinking acutely improves orthostatic tolerance in healthy subjects. Circulation. 2002;106(22):9055-6449). Do not gulp or chug water. Slowly [...] listed above. *Commercial brands include for example: *Provade Watch (Glow, Asanti, eHealth Systems, etc); *POLAR chest strap (model: H10 with any POLAR wrist watch, such as the POLAR UNITE); *Garmin chest strap (model: HRM-Pro Plus with any Garmin watch, such as the VIVOSMART 5); *Plurchaseo 5 or 7 sport watch *Commercial heart [...] apps such as Map my Walk or QuickGifts Pal or on paper). *Set a hard [...] of Preventive Cardiology (EAPC) and the ESC [place] on Hypertension. Eur J Prev Cardiol. 2021;29(1):205-215. [...] Physical Activity Guidelines for Americans. CARLOS ENRIQUE. 2018;320(19):1303-9595. General Weight Management Recommendations: *I recommend aiming to lose approximately 0.5 lb per week for the next 3 months in order to achieve a body weight of 178 lbs. *Mediterranean style diet is recommended. Take our quiz to see how compliant you are with the Mediterranean style diet: [email or web address]://[email or web address]/are -ftz-kpsvde-e-mediterranean-diet/ *When eating carbohydrates, look for low glycemic [...] exercise prescription. *As needed, Virtual Visit (Visit [email or web address]. Questions? Contact technical support at [phone]) in 6-8 months for follow up discussions regarding progress made with your exercise plan. *If you would like more information on cardiac rehabilitation, please visit our dedicated [facility] web-page aimed at providing evidence-based information on heart health at the following, [email or web address]. Thank you for your visit with us today in Preventive Cardiology and Rehabilitation. Jamarcus Watts, PhD Director, Cardiac Rehabilitation Staff, Section of Preventive Cardiology & Rehabilitation Heart [facility] [place] [facility] [address] [place] [address] Office: [phone] Appointment Desk: [phone] option #3 documented in this encounter [facility] 02-08-2023 History of Present illness Narrative Images from the original note were not included. [facility] [place] [facility] Department of Cardiovascular Medicine SECTION OF [...] Factor take 3 tablet once per day lq-ju-C-theanine-herb no.310 (AIRBORNE EVERYDAY STRESS AWAY) 1,000 mg-200 [...] tablet 60 minutes prior to procedure. omega 0-iwm-zgj-fish oil (FISH OIL) 900-1,400 mg cpDR Take [...] 2 chewables by mouth twice per day. jj-zc-cllO-yhiDr-Voa-Rlg-hc124 334-1.7 mg chew Take 1 tablet by [...] daily[place] [address] [place]. Readiness for change:Preparation (intent to change [...] 74 - 99 mg/dL Final Comment: The [place] Diabetes Association (ADA) provides guidance for cutoff [...] Standards of Medical Care in Diabetes 2016, [place] Diabetes Association. Diabetes Care. 2016.39(Suppl 1). TSH [...] outside the ones listed below): *Smart Watch (Glow, Asanti, eHealth Systems, etc); *POLAR chest strap (model: H10 with [...] improves orthostatic tolerance in healthy subjects. Circulation. 2002;106(22):3856-4132). Do not gulp or chug water. Slowly [...] *Commercial brands include for example: *Smart Watch (Glow, Asanti, eHealth Systems, etc); *POLAR chest strap (model: H10 with [...] log for self-management (free apps such as [employer] my Walk or QuickGifts Pal or on paper). *Set a hard (upper) time limitation on how much time you will spend on each exercise session so that fitting/dedicating time for exercise does not become stressful and a burden. Evidence Based Guidelines: Toñosen H, Jen H, Silverio A, et al. Personalized exercise prescription in the prevention and treatment of arterial hypertension: a Consensus Document from the Association of Preventive Cardiology (EAPC) and the ESC [place] on Hypertension. Eur J Prev Cardiol. 2021;29(1):205-215. [...] Physical Activity Guidelines for Americans. CARLOS ENRIQUE. 2018;320(19):7926-2967. General Weight Management Recommendations: *I recommend aiming to lose approximately 0.5 lb per week for the next 3 months in order to achieve a body weight of 178 lbs. *Mediterranean style diet is recommended. Take our quiz to see how compliant you are with the Mediterranean style diet: https://health.[email or web address]/are -wmf-ybczcu-q-mediterranean-diet/ *When eating carbohydrates, look for low glycemic [...] exercise prescription. *As needed, Virtual Visit (Visit [email or web address]. Questions? Contact technical support at [phone]) in 6-8 months for follow up discussions regarding progress made with your exercise plan. *If you would like more information on cardiac rehabilitation, please visit our dedicated [facility] web-page aimed at providing evidence-based information on heart health at the following, [email or web address]. Thank you for your visit with [...] Exercise and lifestyle guidance as above per professor of exercise science. I have reviewed the documentation obtained and documented by the EP and have reviewed and updated the problem list as appropriate. I have personally performed a face to face assessment of the patient and have personally participated in the cartagena components. I have discussed the case and management of the patient's care. Hannah Taylor APRN.INTERNATIONAL ACCOUNT REPRESENTATIVE AMBULATORY PATIENT EDUCATION Topic: Exercise Instruction Provided To: Patient Discipline: EP Instructed By: Jamarcus Watts, PhD Motivation to Learn: Eager Family/SO Support: High Cognitive Ability: Alert/Oriented Learning Preference: Individual Instructions Barriers: None Diagnosis: Primary Prevention Lifestyle Changes: Exercise Understanding: Verbalize Understanding Follow up: Complete Methods of Instruction: Verbal instruction and/or handouts. documented in this encounter [facility] 02-06-2023 History of Present illness Narrative Images from the original note were not included. Heart, Vascular, and Thoracic [place] [facility] Department of Cardiovascular Medicine SECTION [...] Factor take 3 tablet once per day am-sk-R-theanine-herb no.310 (AIRBORNE EVERYDAY STRESS AWAY) 1,000 mg-200 [...] tablet 60 minutes prior to procedure. omega 6-bxi-wnk-fish oil (FISH OIL) 900-1,400 mg cpDR Take [...] in the CT contrast administration guidelines link. np-hp-iyhY-sprJk-Mma-Ddr-hc124 334-1.7 mg chew Take 1 tablet by [...] Factor take 3 tablet once per day ag-so-R-theanine-herb no.310 (AIRBORNE EVERYDAY STRESS AWAY) 1,000 mg-200 [...] tablet 60 minutes prior to procedure. omega 7-ebv-tpl-fish oil (FISH OIL) 900-1,400 mg cpDR Take [...] in the CT contrast administration guidelines link. oc-uw-ioyZ-heqQc-Uhf-Vef-hc124 334-1.7 mg chew Take 1 tablet by [...] my office phone number, office fax number, [employer] instructions, and my work email address. Wally Barrow was strongly encouraged to use [employer] for communication if possible, but my email address was provided if needed. Juan F Portillo MD AMBULATORY PATIENT EDUCATION Topic: Hyperlipidemia and Hypertension Instruction Provided To: Patient Barriers: None Motivation to Learn: Interested Methods of Instruction: Verbal instruction and/or handouts. Patient Leans Best By: Multiple Methods Patient Verbalized: Understanding documented in this encounter [facility] 01-11-2023 History of Present illness Narrative Images from the original note were not included. [facility] [place] [facility] Department of Cardiovascular Medicine SECTION OF PREVENTIVE CARDIOLOGY 01/11/2023 Wally Barrow CURRENT MEDS: Current Outpatient Medications Medication Sig yp-vv-S-theanine-herb no.310 (AIRBORNE EVERYDAY STRESS AWAY) 1,000 mg-200 [...] tablet 60 minutes prior to procedure. omega 6-hud-yrq-fish oil (FISH OIL) 900-1,400 mg cpDR Take [...] in the CT contrast administration guidelines link. gr-mv-nhkG-jhdWe-Xkm-Blm-hc124 334-1.7 mg chew Take 1 tablet by [...] with the prior echocardiographic exam performed on 05/24/2021. Similar findings. [...] 74 - 99 mg/dL Final Comment: The [place] Diabetes Association (ADA) provides guidance for cutoff [...] Standards of Medical Care in Diabetes 2016, [place] Diabetes Association. Diabetes Care. 2016.39(Suppl 1). TSH Date Value Ref Range Status 01/09/2017 1.830 0.400 - 5.500 uU/mL Final UltraSens C-Reactive Protein Date Value Ref Range Status 02/27/2017 0.3 <3.1 mg/L Final Comment: (NOTE) hsCRP < 1.0 mg/L, relative risk is low hsCRP 1.0-3.0 mg/L, relative risk is average hsCRP > 3.0 mg/L, relative risk is high Reference: Ubchanan TA, Whit GA, Kj RW, et al. Markers of Inflammation and Cardiovascular Disease. Application to Clinical and Public Health Practice. A Statement for Healthcare Professionals From the Centers for Disease Control and Prevention and the [place] Heart Association. Circulation 2003;107:499-511. Creatinine Date Value [...] Abeba Keen APRN.TRACEY documented in this encounter [facility] 01-11-2023 History of Present illness Narrative RADIOLOGY SERVICE PROGRESS NOTE SERVICE DATE: 01/11/2023 SERVICE TIME: 10:18 AM PATIENT IDENTITY VERIFICATION COMPLETED USING TWO (2) STANDARD IDENTIFIERS: Name and Date of confirmed by patient verbally and Name and Date of confirmed by identification band PATIENT GENDER DATA: male ALLERGIES: Reviewed and unchanged MEDICATIONS REVIEWED BY: Storage Specialist PROCEDURE TYPE: NM STRESS: 0.4 mg of [...] safety can be found using this link: [email or web address]% [email or web address] SIGNATURE: oJ Wynne RN PATIENT NAME: Wlaly Barrow DATE: January 11, 2023 TIME: 10:18 AM PAGER/CONTACT #: [phone] documented in this encounter [facility] 01-01-2023 Miscellaneous Notes Images from the original [...] have PCP contact us if needed Maryann Trores RN Received [employer] Staff Message from external referring [place]/ [place] [facility] ([facility]) Wally Pak Eder is being referred to Unspecified Thoracic Surgeon [...] office for scheduling. Please call pt at [phone]. Patient was informed consultation could be at [place] or [facility] [place]: No Patient Registration: Registration complete/updated: yes Insurance card(s) scanned in [facility] with in the past year: No Pt's [employer] is active. Ok to communicate to pt via V[employer] yes Medical Records: Records in [facility] (internal [facility] records): No Imaging in [facility] (internal [facility] records): No Care Everywhere - queried yes, downloaded Yes Linked Outside Organizations (list): Isaac Marquez [facility] Records Requested: yes Date: 12-28-2022 Outside Hospital(s) requested records from: PCP Dr. Isaacs Received: no Uploaded: No. Waiting on additional records: Yes. Missing (list): Office Notes Radiology Report(s) OSH Pathology Slides Requested: no Date: N/A Outside Hospital(s) slides requested from: n/a OSH Radiology Imaging Requested: yes Date: 12-28-2022 Outside [...] team review his imaging/records Enct routed to: Heather Christie documented in this encounter [facility] 12-27-2022 Miscellaneous Notes Reason for call: Mr Barrow called and he would like to schedule an appointment with a thoracic surgeon as soon as possible Home and cell number [phone] Diagnosis right side muscle pain Kind Regards Rosa documented in this encounter [facility] 11-12-2022 Miscellaneous Notes Call from patient requesting refill. Requested Prescriptions Pending Prescriptions Disp Refills hydroCHLOROthiazide (HYDRODIURIL, ESIDRIX) 25 mg tablet 90 tablet 3 Sig: Take 1 tablet by mouth once daily. Patient last seen 08/16 Indira Zavala documented in this encounter [facility] 10-15-2022 Miscellaneous Notes The following approved medication [...] at bedtime. Patient last seen 07/2022 Bekah Murphy documented in this encounter [facility] 08-15-2022 History of Present illness Narrative Images from the original note were not included. Heart, Vascular, and Thoracic [place] [facility] Department of Cardiovascular Medicine SECTION [...] weeks. After 09/2020 visit saw Ezekiel Taylor NP in follow-up in 02/13. Notes [...] 1 tablet by mouth once daily. omega 9-qwg-agt-fish oil (FISH OIL) 900-1,400 mg cpDR Take [...] in the CT contrast administration guidelines link. hn-ic-hglA-laaKn-Rxk-Dbw-hc124 334-1.7 mg chew Take 1 tablet by [...] of CAD: Negative Active this summer in [facility] Has treadmill using daily 1 hour Avg. [...] of CAD: Negative Active this summer in rd Has treadmill using daily 1 hour Avg. [...] 1 tablet by mouth once daily. omega 4-bum-lau-fish oil (FISH OIL) 900-1,400 mg cpDR Take [...] in the CT contrast administration guidelines link. as-[id number] 334-1.7 mg chew Take 1 tablet by [...] my office phone number, office fax number, [employer] instructions, and my work email address. Wally Barrow was strongly encouraged to use [employer] for communication if possible, but my email address was provided if needed. Juan F Portillo MD AMBULATORY PATIENT EDUCATION Topic: Hyperlipidemia and Hypertension Instruction Provided To: Patient Barriers: None Motivation to Learn: Interested Methods of Instruction: Verbal instruction and/or handouts. Patient Leans Best By: Multiple Methods Patient Verbalized: Understanding documented in this encounter [facility] 08-10-2022 Miscellaneous Notes August 10, 2022 Patient Contact Number: [phone] Patient last seen within the last year: [...] Yes Roselyn Aden documented in this encounter [facility] 04-11-2022 History of Present illness Narrative RADIOLOGY [...] POST EXAM PIV STATUS: Discontinued PROCEDURE TYPE: MI Stress: 13.0mCi [id number] was administered IV for Rest Imaging at 0905. 32 mCi [id number] was administered IV for Stress Imaging at 1018 by RT Luz Marina(R) . PATIENT DISCHARGED TO: Ambulatory patient, left MI department area. A Diagnostic radioactive procedure has taken place, with no further precautions necessary other than routine body substance precautions. More information regarding radiation safety can be found using this link: [email or web address] [email or web address]%20Medicine% [email or web address] SIGNATURE: RT Althea(R) PATIENT NAME: Wally Barrow DATE: April 11, 2022 TIME: 9:10 AM PAGER/CONTACT #: documented in this encounter [facility] 03-20-2022 Miscellaneous Notes Call from patient requesting refill. Patient is scheduled for dental work on 03/28/22. Pending Prescriptions Disp Refills AZITHROMYCIN 500 MG TABLET 1 tablet 0 Sig: Take 1 tablet by mouth once daily. Take one tablet 60 minutes prior to procedure. DU: No Patient last seen January 2022 Navya Lentz Pss documented in this encounter [facility] 03-09-2022 Evaluation + Plan note Future Scheduled TestsFecal WBC Lactoferrin 03/09/22Giardia lamblia, Direct Detection EIA 03/09/22O & P Exam, Routine 03/09/22Clostridium difficile by PCR 03/09/22Enteric Panel by PCR 03/09/22 [facility] 02-19-2022 Hospital Discharge instructions Patient Education 02/19/2022 [...] 08/07/2005 Document Revised: 02/26/2019 Document Reviewed: 02/26/2019 [employer] Patient Education 2020 [employer]. 02/19/2022 11:09:09 Diverticulosis MAGR (CUSTOM) Diverticulosis Many [...] unsweetened, w/added ascorbic acid 1 cup 0.5 [place] 1 cup 0.7 Vegetables Cooked Green beans 1 cup 4.0 Carrots 1/2 cup sliced 2.3 Peas 1 cup 8.8 Potato (baked, with skin) 1 medium potato 3.8 Raw [place] (with peel) 1 cucumber 1.5 Lettuce [...] 8.7 Peanuts 1/2 cup 7.9 Chart from [facility] 2013. SEEK IMMEDIATE MEDICAL CARE IF: [...] Nutrient Database for Standard Reference. Available at http://www.[employer].usda.gov/fnic/foodcomp/ search/. Information adapted from: [facility] Patient Information 2009 [employer]. [place] 2012 [email or web address]-tkbdch-the-basics Follow Up Care 02/07/2022 10:39:23 With:Jayson ADDISON Address: [address] [place] [address]. [address] [place] [phone] Business (1) When: Unknown Comments:office will call for follow up [facility] 08-15-2018 History of Past i llness Narrative [...] incident. Plan: Post-pull repeat CXR ipending. Continue [employer] for pain related to catheter. Acute post-operative pain 08/12/20182017 Overview: History: post OHS Assessment: pain is well controlled with current regimen. Pt. requests [employer] continue. Does have itching when takes Oxycodone, but states all pain meds causes this for him (no rash noted) Plan: Continue current regimen with lidoderm patches, Tylenol, Oxycodone/Tramadol, and [employer] W[employer]ER. Add Benadryl. Bowel regimen in place. Cardiac [...] Cardiac Surgical prep: N/A SIGNATURE: Belia Gardner APRN.INTERNATIONAL ACCOUNT REPRESENTATIVE CHECKED BY: DATE of SERVICE: 08/11/2018 TIME of SERVICE: 5:09 PM Ascending aortic aneurysm 2017 Dilated aortic root 08/15/2018 documented as of this encounter (statuses as of 03/23/2022) [facility] History of Past illness Narrative* Problem Noted [...] incident. Plan: Post-pull repeat CXR ipending. Continue [employer] for pain related to catheter. Acute post-operative pain 08/12/20182017 Overview: History: post OHS Assessment: pain is well controlled with current regimen. Pt. requests [employer] continue. Does have itching when takes Oxycodone, but states all pain meds causes this for him (no rash noted) Plan: Continue current regimen with lidoderm patches, Tylenol, Oxycodone/Tramadol, and [employer]. Add Benadryl. Bowel regimen in place. Cardiac [...] Cardiac Surgical prep: N/A SIGNATURE: Belia Gardner APRN.INTERNATIONAL ACCOUNT REPRESENTATIVE CHECKED BY: DATE of SERVICE: 08/11/2018 TIME of SERVICE: 5:09 PM Ascending aortic aneurysm 2017 Dilated aortic root 08/15/2018 documented as of this encounter (statuses as of 03/28/2022) [facility] History of Past illness Narrative* Problem Noted [...] incident. Plan: Post-pull repeat CXR ipending. Continue [employer] for pain related to catheter. Acute post-operative pain 08/12/20182017 Overview: History: post OHS Assessment: pain is well controlled with current regimen. Pt. requests [employer] continue. Does have itching when takes Oxycodone, but states all pain meds causes this for him (no rash noted) Plan: Continue current regimen with lidoderm patches, Tylenol, Oxycodone/Tramadol, and [employer]. Add Benadryl. Bowel regimen in place. Cardiac [...] Cardiac Surgical prep: N/A SIGNATURE: Belia Gardner APRN.INTERNATIONAL ACCOUNT REPRESENTATIVE CHECKED BY: DATE of SERVICE: 08/11/2018 TIME of SERVICE: 5:09 PM Ascending aortic aneurysm 2017 Dilated aortic root 08/15/2018 documented as of this encounter (statuses as of 04/12/2022) [facility] History of Past illness Narrative* Problem Noted [...] incident. Plan: Post-pull repeat CXR ipending. Continue [employer] for pain related to catheter. Acute post-operative pain 08/12/20182017 Overview: History: post OHS Assessment: pain is well controlled with current regimen. Pt. requests [employer] continue. Does have itching when takes Oxycodone, but states all pain meds causes this for him (no rash noted) Plan: Continue current regimen with lidoderm patches, Tylenol, Oxycodone/Tramadol, and [employer] W[employer]ER. Add Benadryl. Bowel regimen in place. Cardiac [...] Cardiac Surgical prep: N/A SIGNATURE: Belia Gardner APRN.INTERNATIONAL ACCOUNT REPRESENTATIVE CHECKED BY: DATE of SERVICE: 08/11/2018 TIME of SERVICE: 5:09 PM Ascending aortic aneurysm 2017 Dilated aortic root 08/15/2018 documented as of this encounter (statuses as of 08/10/2022) [facility] History of Past illness Narrative* Problem Noted [...] incident. Plan: Post-pull repeat CXR ipending. Continue [employer] for pain related to catheter. Acute post-operative pain 08/12/20182017 Overview: History: post OHS Assessment: pain is well controlled with current regimen. Pt. requests [employer] continue. Does have itching when takes Oxycodone, but states all pain meds causes this for him (no rash noted) Plan: Continue current regimen with lidoderm patches, Tylenol, Oxycodone/Tramadol, and [employer]. Add Benadryl. Bowel regimen in place. Cardiac [...] Cardiac Surgical prep: N/A SIGNATURE: Belia Gardner APRN.INTERNATIONAL ACCOUNT REPRESENTATIVE CHECKED BY: DATE of SERVICE: 08/11/2018 TIME of SERVICE: 5:09 PM Ascending aortic aneurysm 2017 Dilated aortic root 08/15/2018 documented as of this encounter (statuses as of 08/15/2022) [facility] History of Past illness Narrative* Problem Noted [...] incident. Plan: Post-pull repeat CXR ipending. Continue [employer]ER for pain related to catheter. Acute post-operative pain 08/12/20182017 Overview: History: post OHS Assessment: pain is well controlled with current regimen. Pt. requests [employer] continue. Does have itching when takes Oxycodone, but states all pain meds causes this for him (no rash noted) Plan: Continue current regimen with lidoderm patches, Tylenol, Oxycodone/Tramadol, and [employer]. Add Benadryl. Bowel regimen in place. Cardiac [...] Cardiac Surgical prep: N/A SIGNATURE: Belia Gardner APRN.INTERNATIONAL ACCOUNT REPRESENTATIVE CHECKED BY: DATE of SERVICE: 08/11/2018 TIME of SERVICE: 5:09 PM Ascending aortic aneurysm 2017 Dilated aortic root 08/15/2018 documented as of this encounter (statuses as of 10/15/2022) [facility] History of Past illness Narrative* Problem Noted [...] incident. Plan: Post-pull repeat CXR ipending. Continue [employer] for pain related to catheter. Acute post-operative pain 08/12/20182017 Overview: History: post OHS Assessment: pain is well controlled with current regimen. Pt. requests [employer] continue. Does have itching when takes Oxycodone, but states all pain meds causes this for him (no rash noted) Plan: Continue current regimen with lidoderm patches, Tylenol, Oxycodone/Tramadol, and [employer]. Add Benadryl. Bowel regimen in place. Cardiac [...] GIB history. Last dose of OTC/Vit on 9/13/18 Op Note: No Pacemaker Check: N/A Implants: no Consults: None DM: No Cardiac Surgical prep: N/A SIGNATURE: Belia Gardner APRN.CNP CHECKED BY: DATE of SERVICE: 08/11/2018 TIME of SERVICE: 5:09 PM Ascending aortic aneurysm 2017 Dilated aortic root 08/15/2018 documented as of this encounter (statuses as of 11/12/2022) [facility] History of Past illness Narrative* Problem Noted [...] incident. Plan: Post-pull repeat CXR ipending. Continue [employer]ER for pain related to catheter. Acute post-operative pain 08/12/20182017 Overview: History: post OHS Assessment: pain is well controlled with current regimen. Pt. requests [employer] continue. Does have itching when takes Oxycodone, but states all pain meds causes this for him (no rash noted) Plan: Continue current regimen with lidoderm patches, Tylenol, Oxycodone/Tramadol, and [employer]. Add Benadryl. Bowel regimen in place. Cardiac [...] Cardiac Surgical prep: N/A SIGNATURE: Belia Gardner APRN.INTERNATIONAL ACCOUNT REPRESENTATIVE CHECKED BY: DATE of SERVICE: 08/11/2018 TIME of SERVICE: 5:09 PM Ascending aortic aneurysm 2017 Dilated aortic root 08/15/2018 documented as of this encounter (statuses as of 12/27/2022) [facility] History of Past illness Narrative* Problem Noted [...] incident. Plan: Post-pull repeat CXR ipending. Continue [employer]ER for pain related to catheter. Acute post-operative pain 08/12/20182017 Overview: History: post OHS Assessment: pain is well controlled with current regimen. Pt. requests [employer] continue. Does have itching when takes Oxycodone, but states all pain meds causes this for him (no rash noted) Plan: Continue current regimen with lidoderm patches, Tylenol, Oxycodone/Tramadol, and [employer]. Add Benadryl. Bowel regimen in place. Cardiac [...] of this encounter (statuses as of 01/01/2023) [facility] History of Past illness Narrative* Problem Noted [...] incident. Plan: Post-pull repeat CXR ipending. Continue [employer]ER for pain related to catheter. Acute post-operative pain 08/12/20182017 Overview: History: post OHS Assessment: pain is well controlled with current regimen. Pt. requests [employer] continue. Does have itching when takes Oxycodone, but states all pain meds causes this for him (no rash noted) Plan: Continue current regimen with lidoderm patches, Tylenol, Oxycodone/Tramadol, and [employer] W[employer]. Add Benadryl. Bowel regimen in place. Cardiac [...] of this encounter (statuses as of 01/09/2023) [facility] History of Past illness Narrative* Problem Noted [...] incident. Plan: Post-pull repeat CXR ipending. Continue [employer] W[employer]ER for pain related to catheter. Acute post-operative pain 08/12/20182017 Overview: History: post OHS Assessment: pain is well controlled with current regimen. Pt. requests [employer] continue. Does have itching when takes Oxycodone, but states all pain meds causes this for him (no rash noted) Plan: Continue current regimen with lidoderm patches, Tylenol, Oxycodone/Tramadol, and [employer] W[employer]ER. Add Benadryl. Bowel regimen in place. Cardiac [...] of this encounter (statuses as of 01/12/2023) [facility] History of Past illness Narrative* Problem Noted [...] incident. Plan: Post-pull repeat CXR ipending. Continue [employer] W[employer]ER for pain related to catheter. Acute post-operative pain 08/12/20182017 Overview: History: post OHS Assessment: pain is well controlled with current regimen. Pt. requests [employer] continue. Does have itching when takes Oxycodone, but states all pain meds causes this for him (no rash noted) Plan: Continue current regimen with lidoderm patches, Tylenol, Oxycodone/Tramadol, and [employer] W[employer]. Add Benadryl. Bowel regimen in place. Cardiac [...] of this encounter (statuses as of 01/12/2023) [facility] History of Past illness Narrative* Problem Noted [...] incident. Plan: Post-pull repeat CXR ipending. Continue [employer] W[employer]ER for pain related to catheter. Acute post-operative pain 08/12/20182017 Overview: History: post OHS Assessment: pain is well controlled with current regimen. Pt. requests [employer] W[employer]ER continue. Does have itching when takes Oxycodone, but states all pain meds causes this for him (no rash noted) Plan: Continue current regimen with lidoderm patches, Tylenol, Oxycodone/Tramadol, and [employer] W[employer]ER. Add Benadryl. Bowel regimen in place. Cardiac [...] Cardiac Surgical prep: N/A SIGNATURE: Belia Gardner APRN.INTERNATIONAL ACCOUNT REPRESENTATIVE CHECKED BY: DATE of SERVICE: 08/11/2018 TIME of SERVICE: 5:09 PM Ascending aortic aneurysm 2017 Dilated aortic root 08/15/2018 documented as of this encounter (statuses as of 02/06/2023) [facility] History of Past illness Narrative* Problem Noted [...] incident. Plan: Post-pull repeat CXR ipending. Continue [employer] W[employer]ER for pain related to catheter. Acute post-operative pain 08/12/20182017 Overview: History: post OHS Assessment: pain is well controlled with current regimen. Pt. requests [employer] W[employer] continue. Does have itching when takes Oxycodone, but states all pain meds causes this for him (no rash noted) Plan: Continue current regimen with lidoderm patches, Tylenol, Oxycodone/Tramadol, and [employer] W[employer]ER. Add Benadryl. Bowel regimen in place. Cardiac [...] Cardiac Surgical prep: N/A SIGNATURE: Belia Gardner APRN.INTERNATIONAL ACCOUNT REPRESENTATIVE CHECKED BY: DATE of SERVICE: 08/11/2018 TIME of SERVICE: 5:09 PM Ascending aortic aneurysm 2017 Dilated aortic root 08/15/2018 documented as of this encounter (statuses as of 02/07/2023) [facility] History of Past illness Narrative* Problem Noted [...] incident. Plan: Post-pull repeat CXR ipending. Continue [employer] W[employer]ER for pain related to catheter. Acute post-operative pain 08/12/20182017 Overview: History: post OHS Assessment: pain is well controlled with current regimen. Pt. requests [employer] continue. Does have itching when takes Oxycodone, but states all pain meds causes this for him (no rash noted) Plan: Continue current regimen with lidoderm patches, Tylenol, Oxycodone/Tramadol, and [employer] W[employer]. Add Benadryl. Bowel regimen in place. Cardiac [...] of this encounter (statuses as of 02/12/2023) [facility] History of Past illness Narrative* Problem Noted [...] incident. Plan: Post-pull repeat CXR ipending. Continue [employer] W[employer]ER for pain related to catheter. Acute post-operative pain 08/12/20182017 Overview: History: post OHS Assessment: pain is well controlled with current regimen. Pt. requests [employer] continue. Does have itching when takes Oxycodone, but states all pain meds causes this for him (no rash noted) Plan: Continue current regimen with lidoderm patches, Tylenol, Oxycodone/Tramadol, and [employer] W[employer]. Add Benadryl. Bowel regimen in place. Cardiac [...] Cardiac Surgical prep: N/A SIGNATURE: Belia Gardner APRN.INTERNATIONAL ACCOUNT REPRESENTATIVE CHECKED BY: DATE of SERVICE: 08/11/2018 TIME of SERVICE: 5:09 PM Ascending aortic aneurysm 2017 Dilated aortic root 08/15/2018 documented as of this encounter (statuses as of 03/13/2023) [facility] History of Past illness Narrative* Problem Noted [...] incident. Plan: Post-pull repeat CXR ipending. Continue [employer] W[employer]ER for pain related to catheter. Acute post-operative pain 08/12/2018 Overview: History: post OHS Assessment: pain is well controlled with current regimen. Pt. requests [employer] continue. Does have itching when takes Oxycodone, but states all pain meds causes this for him (no rash noted) Plan: Continue current regimen with lidoderm patches, Tylenol, Oxycodone/Tramadol, and [employer] W[employer]. Add Benadryl. Bowel regimen in place. Cardiac [...] of this encounter (statuses as of 06/05/2023) [facility] History of Past illness Narrative* Problem Noted [...] incident. Plan: Post-pull repeat CXR ipending. Continue [employer] for pain related to catheter. Acute post-operative pain 08/12/2018 Overview: History: post OHS Assessment: pain is well controlled with current regimen. Pt. requests [employer] continue. Does have itching when takes Oxycodone, but states all pain meds causes this for him (no rash noted) Plan: Continue current regimen with lidoderm patches, Tylenol, Oxycodone/Tramadol, and [employer] W[employer]. Add Benadryl. Bowel regimen in place. Cardiac [...] of this encounter (statuses as of 07/08/2023) [facility] History of Past illness Narrative* Problem Noted [...] incident. Plan: Post-pull repeat CXR ipending. Continue [employer] W[employer]ER for pain related to catheter. Acute post-operative pain 08/12/2018 Overview: History: post OHS Assessment: pain is well controlled with current regimen. Pt. requests [employer] continue. Does have itching when takes Oxycodone, but states all pain meds causes this for him (no rash noted) Plan: Continue current regimen with lidoderm patches, Tylenol, Oxycodone/Tramadol, and [employer] W[employer]ER. Add Benadryl. Bowel regimen in place. Cardiac [...] Cardiac Surgical prep: N/A SIGNATURE: Belia Gardner APRN.INTERNATIONAL ACCOUNT REPRESENTATIVE CHECKED BY: DATE of SERVICE: 08/11/2018 TIME of SERVICE: 5:09 PM Ascending aortic aneurysm Dilated aortic root 08/15/20 18 documented as of this encounter (statuses as of 07/15/2023) [facility] History of Past illness Narrative* Problem Noted [...] incident. Plan: Post-pull repeat CXR ipending. Continue [employer] W[employer]ER for pain related to catheter. Acute post-operative pain 08/12/2018 Overview: History: post OHS Assessment: pain is well controlled with current regimen. Pt. requests [employer] continue. Does have itching when takes Oxycodone, but states all pain meds causes this for him (no rash noted) Plan: Continue current regimen with lidoderm patches, Tylenol, Oxycodone/Tramadol, and [employer] W[employer]ER. Add Benadryl. Bowel regimen in place. Cardiac [...] Cardiac Surgical prep: N/A SIGNATURE: Belia Gardner APRN.INTERNATIONAL ACCOUNT REPRESENTATIVE CHECKED BY: DATE of SERVICE: 08/11/2018 TIME of SERVICE: 5:09 PM Ascending aortic aneurysm Dilated aortic root 08/15/20 18 documented as of this encounter (statuses as of 08/13/2023) [facility] History of Past illness Narrative* Problem Noted [...] incident. Plan: Post-pull repeat CXR ipending. Continue [employer] W[employer]ER for pain related to catheter. Acute post-operative pain 08/12/2018 Overview: History: post OHS Assessment: pain is well controlled with current regimen. Pt. requests [employer] W[employer] continue. Does have itching when takes Oxycodone, but states all pain meds causes this for him (no rash noted) Plan: Continue current regimen with lidoderm patches, Tylenol, Oxycodone/Tramadol, and [employer] W[employer]ER. Add Benadryl. Bowel regimen in place. Cardiac [...] of this encounter (statuses as of 08/19/2023) [facility] History of Past illness Narrative* Problem Noted [...] incident. Plan: Post-pull repeat CXR ipending. Continue [employer] W[employer]ER for pain related to catheter. Acute post-operative pain 08/12/2018 Overview: History: post OHS Assessment: pain is well controlled with current regimen. Pt. requests [employer]URE [employer] W[employer]ER continue. Does have itching when takes Oxycodone, but states all pain meds causes this for him (no rash noted) Plan: Continue current regimen with lidoderm patches, Tylenol, Oxycodone/Tramadol, and [employer] W[employer]ER. Add Benadryl. Bowel regimen in place. Cardiac [...] Cardiac Surgical prep: N/A SIGNATURE: Belia Gardner APRN.INTERNATIONAL ACCOUNT REPRESENTATIVE CHECKED BY: DATE of SERVICE: 08/11/2018 TIME of SERVICE: 5:09 PM Ascending aortic aneurysm Dilated aortic root 08/15/20 18 documented as of this encounter (statuses as of 11/13/2023) [facility] History of Past illness Narrative* Problem Noted [...] incident. Plan: Post-pull repeat CXR ipending. Continue [employer] W[employer]ER for pain related to catheter. Acute post-operative pain 08/12/2018 Overview: History: post OHS Assessment: pain is well controlled with current regimen. Pt. requests [employer] W[employer] continue. Does have itching when takes Oxycodone, but states all pain meds causes this for him (no rash noted) Plan: Continue current regimen with lidoderm patches, Tylenol, Oxycodone/Tramadol, and [employer] W[employer]ER. Add Benadryl. Bowel regimen in place. Cardiac [...] of this encounter (statuses as of 02/11/2024) [facility] No data available for this section [facility] Future Appointments Appointment Date:03/29/2023 08:30:00 AM Scheduled Provider: Location:[place] Appointment Type:PT [place] 45 (FT) Appointment Date:04/02/2023 02:15:00 PM Scheduled Provider: Location:.[place] Appointment Type:PT [place] [facility] (FT) Appointment Date:04/05/2023 11:30:00 AM Scheduled Provider: Location:.[place] Appointment Type:PT [place] 45 (FT) Appointment Date:04/09/2023 11:30:00 AM Scheduled Provider: Location:.[place] Appointment Type:PT [place] 45 (FT) Appointment Date:04/12/2023 08:30:00 AM Scheduled Provider: Location:.[place] Appointment Type:PT Re-Eval 30 ([facility]) [facility] Diagnosis Precordial pain- Primary documented in this encounter [facility] note* Diagnosis Precordial pain [facility] Diagnosis S/P AVR- Primary Heart valve replaced by other means Essential (primary) hypertension Unspecified essential hypertension [facility] Diagnosis Essential hypertension Unspecified essential hypertension [facility] Diagnosis Essential hypertension Unspecified essential hypertension [facility]* Diagnosis Chest pain, unspecified type- Primary documented in this [facility]* Diagnosis S/P AVR- Primary Heart valve replaced by other means Essential hypertension Unspecified essential hypertension Chest discomfort Other chest pain documented [facility]* Diagnosis Physical deconditioning- Primary Debility, unspecified Elevated serum creatinine Other nonspecific findings on examination of blood S/P AVR Heart valve replaced by other means [facility] Diagnosis Elevated serum creatinine- Primary Other [...] Dizziness and giddiness documented [facility] Diagnosis S/P AVR- Primary Heart valve [...] Other specified counseling documented [facility]* Diagnosis Hyperlipidemia, unspecified hyperlipidemia type- Primary S/P ascending aortic replacement Blood vessel replaced by other means Nonrheumatic aortic valve insufficiency Aortic valve disorders documented [facility] this [facility] Diagnosis S/P right rotator cuff repair- Primary Traumatic complete tear of right rotator cuff, initial encounter documented in this [facility]* Diagnosis Essential hypertension Unspecified essential hypertension documented [facility] Diagnosis Hyperlipidemia, unspecified hyperlipidemia type- Primary Essential hypertension Unspecified essential hypertension S/P AVR Heart valve replaced by other means [facility] Diagnosis Essential hypertension Unspecified essential hypertension [facility] Diagnosis Hyperlipidemia, unspecified hyperlipidemia type- Primary Essential hypertension Unspecified essential hypertension S/P AVR Heart valve replaced by other means [facility] Diagnosis Essential hypertension- Primary Unspecified essential hypertension Hyperlipidemia, unspecified hyperlipidemia type S/P AVR Heart valve replaced by other means documented [facility] this [facility]* Diagnosis Dry eye- Primary Tear film insufficiency, unspecified Meibomian gland dysfunction (MGD) of upper and lower lids of both eyes Dermatochalasis of both upper eyelids Pseudophakia Lens replaced by other means documented in this encounter [facility] Discharge instructions No data available for this section [facility] data available for this [facility] Diagnostic Procedure Only (Routine) - Pending Review Specialty Diagnoses / Procedures Referred By Darnell collins Referred To Contact [facility] Diagnoses Precordial pain Procedures NM CARDIAC PERF STRESS/EXERCISE MYOCARDIAL SPECT MULTIPLE STUDIES Todd Nunn MD [address] [place] [address] Molecular & Functional Imaging [address] [place] [address] Referral ID Status Reason Start Date Expiration Date Visits Requested Visits Authorized [id number] Pending Review Auto-Generat ed Referral 04/11/2022 04/26/2023 1 1 [facility] for referral (narrative)* Diagnostic Procedure Only (Routine) - Closed Specialty Diagnoses / Procedures Referred By Darnell collins Referred To Contact [facility] FUNCTIONAL IMAGING Diagnoses Precordial pain Procedures NM CARDIAC PERF STRESS/EXERCISE MYOCARDIAL SPECT MULTIPLE STUDIES Todd Nunn MD [address] [place] [id number] Molecular & Functional Imaging [address] [place], [place] [id number] Referral ID Status Reason Start Date Expiration Date V isits Requested Visits Authorized [id number] Closed Auto-Generate d Referral 04/11/2022 04/26/2023 1 1 [facility] for referral (narrative)* Outpatient Procedure (Routine) - Authorized Specialty Diagnoses / Procedures Referred By Contac t Referred To Contact [facility] Diagnoses S/P AVR Procedures ECHO ECHO TTHRC R-T 2D W/WOM-MODE COMPL SPEC&COLR D Juan F Portillo MD [address] [place] [address] [place] [address] Referral ID Status Reason Start Date Expiration Date Visits Requested Visits Authorized [id number] Authorized Auto-Generat ed Referral 08/15/2022 08/15/2023 1 1 [facility] for referral (narrative)* Diagnostic Procedure Only (Routine) - Authorized Specialty Diagnoses / Procedures Referred By Contac t Referred To Contact [facility]CTIONAL [facility]AGING Diagnoses Chest pain, unspecified type Procedures NM CARDIAC PERF STRESS/PHARM MYOCARDIAL SPECT MULTIPLE STUDIES Todd Nunn MD [address] [place] [address] Molecular & Functional Imaging [address] [place] [address] Referral ID Status Reason Start Date Expiration Date Visits Requested Visits Authorized [id number] Authorized Auto-Generat ed Referral 01/08/2023 02/06/2024 1 1 [facility] for referral (narrative)* Outpatient Procedure (Routine) - Authorized Specialty Diagnoses / Procedures Referred By Contac t Referred To Contact [facility] Diagnoses Chest pain, unspecified type Procedures ECG COMPLETE ECG ROUTINE ECG W/LEAST 12 LDS W/I&R Juan F Portillo MD [address] [place] [address] [facility] [address] [place] [address] Referral ID Status Reason Start Date Expiration Date Visits Requested Visits Authorized [id number] Authorized Auto-Generat ed Referral 01/08/2023 01/08/2024 1 1 [facility] Outpatient Procedure (Routine) - Pending Review Specialty Diagnoses / Procedures Referred By Contac t Referred To Contact [facility] Diagnoses S/P ascending aortic replacement Nonrheumatic aortic valve insufficiency Procedures ECHO ECHO TTHRC R-T 2D W/WOM-MODE COMPL SPEC&COLR D Clarisse Gee APRN.INTERNATIONAL ACCOUNT REPRESENTATIVE [address] [place] [address] [facility] [address] [place] [address] Referral ID Status Reason Start Date Expiration Date Visits Requested Visits Authorized [id number] Pending Review Auto-Generat ed Referral 03/13/2023 03/12/2024 1 1 [facility] Advance Directives Documents on File Type Date Recorded Patient Shirt Folder Expl anation Advance Directive(s) 08/11/2018 5:53 PM Advance Directive(s) 08/11/2018 5:51 PM Advance Directive(s) 06/02/2018 6:58 AM Documents on File Type Date Recorded Patient Shirt Folder Expl anation Advance Directive(s) 08/11/2018 5:53 PM Advance Directive(s) 08/11/2018 5:51 PM Advance Directive(s) 06/02/2018 6:58 AM Documents on File Type Date Recorded Patient Shirt Folder Expl anation Advance Directive(s) 08/11/2018 5:51 PM Documents on File Type Date Recorded Patient Shirt Folder Expl anation Advance Directive(s) 08/11/2018 5:51 PM Reason for Referral Specialty Diagnoses / Procedures Referred By Contgurpreet t Referred To Contact [facility] Procedures CARDIOVASCULAR MEDICINE OP FOLLOW UP APPT Abeba Harrell APRN.INTERNATIONAL ACCOUNT REPRESENTATIVE [address] [place] [address] [facility] [place] [address] [place] [address] Referral ID Status Reason Start Date Expiration Date Visits Requested Visits Authorized [id number] Ref Not Required PCP Requested Referral 08/13/2024 02/10/2025 1 1 Specialty Diagnoses / Procedures Referred By Contac t Referred To Contact [facility] Diagnoses S/P right rotator cuff repair Traumatic complete tear of right rotator cuff, initial encounter Procedures CONSULT TO PHYSICAL THERAPY PHYSICAL THERAPY EVALUATION HIGH COMPLEX 45 MINS Prabhakar Villa MD [address] [place] [address] [facility] [address] [address] Referral ID Status Reason Start Date Expiration Date Visits Requested Visits Authorized [id number] Authorized PCP Requested Referral Auto-Generate d Referral 07/08/2023 07/07/2024 99 99 Specialty Diagnoses / Procedures Referred By Contac t Referred To Contact Diagnoses Physical deconditioning Procedures CARD PREV EXERCISE PRESCRIPTION OFFICE/OUTPATIENT [facility] 60-74 MINUTES Juan F Portillo MD [address] [place] [address] Referral ID Status Reason Start Date Expiration Date Visits Requested Visits Authorized [id number] Authorized PCP Requested Referral 02/06/2023 02/06/2024 1 [...] Family History No Family History Records Found Additional Source Comments Source Comments (unrecognize d section and content) In the event this informatio n is protected by the Federal Confidentiality of Alcohol and Drug Abuse Patient Records regulations: The Federal rules restrict any use of the information to criminally investigate or prosecute any alcohol or drug abuse patient.[facility] event this information is protected by the Federal Confidentiality of Alcohol and Drug Abuse Patient Records regulations: The Federal rules restrict any use of the information to criminally investigate or prosecute any alcohol or drug abuse patient.[facility] the event this information is protected by the Federal Confidentiality of Alcohol and Drug Abuse Patient Records regulations: The Federal rules restrict any use of the information to criminally investigate or prosecute any alcohol or drug abuse patient.[facility] the event this information is protected by the Federal Confidentiality of Alcohol and Drug Abuse Patient Records regulations: The Federal rules restrict any use of the information to criminally investigate or prosecute any alcohol or drug abuse patient.[facility] the event this information is protected by the Federal Confidentiality of Alcohol and Drug Abuse Patient Records regulations: The Federal rules restrict any use of the information to criminally investigate or prosecute any alcohol or drug abuse patient.[facility] the event this information is protected by the Federal Confidentiality of Alcohol and Drug Abuse Patient Records regulations: The Federal rules restrict any use of the information to criminally investigate or prosecute any alcohol or drug abuse patient.[facility] the event this information is protected by the Federal Confidentiality of Alcohol and Drug Abuse Patient Records regulations: The Federal rules restrict any use of the information to criminally investigate or prosecute any alcohol or drug abuse patient.[facility] the event this information is protected by the Federal Confidentiality of Alcohol and Drug Abuse Patient Records regulations: The Federal rules restrict any use of the information to criminally investigate or prosecute any alcohol or drug abuse patient.[facility] the event this information is protected by the Federal Confidentiality of Alcohol and Drug Abuse Patient Records regulations: The Federal rules restrict any use of the information to criminally investigate or prosecute any alcohol or drug abuse patient.[facility] the event this information is protected by the Federal Confidentiality of Alcohol and Drug Abuse Patient Records regulations: The Federal rules restrict any use of the information to criminally investigate or prosecute any alcohol or drug abuse patient.[facility] the event this information is protected by the Federal Confidentiality of Alcohol and Drug Abuse Patient Records regulations: The Federal rules restrict any use of the information to criminally investigate or prosecute any alcohol or drug abuse patient.[facility] the event this information is protected by the Federal Confidentiality of Alcohol and Drug Abuse Patient Records regulations: The Federal rules restrict any use of the information to criminally investigate or prosecute any alcohol or drug abuse patient.[facility] the event this information is protected by the Federal Confidentiality of Alcohol and Drug Abuse Patient Records regulations: The Federal rules restrict any use of the information to criminally investigate or prosecute any alcohol or drug abuse patient.[facility] the event this information is protected by the Federal Confidentiality of Alcohol and Drug Abuse Patient Records regulations: The Federal rules restrict any use of the information to criminally investigate or prosecute any alcohol or drug abuse patient.[facility] the event this information is protected by the Federal Confidentiality of Alcohol and Drug Abuse Patient Records regulations: The Federal rules restrict any use of the information to criminally investigate or prosecute any alcohol or drug abuse patient.[facility] the event this information is protected by the Federal Confidentiality of Alcohol and Drug Abuse Patient Records regulations: The Federal rules restrict any use of the information to criminally investigate or prosecute any alcohol or drug abuse patient.[facility] the event this information is protected by the Federal Confidentiality of Alcohol and Drug Abuse Patient Records regulations: The Federal rules restrict any use of the information to criminally investigate or prosecute any alcohol or drug abuse patient.[facility] the event this information is protected by the Federal Confidentiality of Alcohol and Drug Abuse Patient Records regulations: The Federal rules restrict any use of the information to criminally investigate or prosecute any alcohol or drug abuse patient.[facility] the event this information is protected by the Federal Confidentiality of Alcohol and Drug Abuse Patient Records regulations: The Federal rules restrict any use of the information to criminally investigate or prosecute any alcohol or drug abuse patient.[facility] the event this information is protected by the Federal Confidentiality of Alcohol and Drug Abuse Patient Records regulations: The Federal rules restrict any use of the information to criminally investigate or prosecute any alcohol or drug abuse patient.[facility] the event this information is protected by the Federal Confidentiality of Alcohol and Drug Abuse Patient Records regulations: The Federal rules restrict any use of the information to criminally investigate or prosecute any alcohol or drug abuse patient.[facility] the event this information is protected by the Federal Confidentiality of Alcohol and Drug Abuse Patient Records regulations: The Federal rules restrict any use of the information to criminally investigate or prosecute any alcohol or drug abuse patient.[facility] the event this information is protected by the Federal Confidentiality of Alcohol and Drug Abuse Patient Records regulations: The Federal rules restrict any use of the information to criminally investigate or prosecute any alcohol or drug abuse patient.[facility] the event this information is protected by the Federal Confidentiality of Alcohol and Drug Abuse Patient Records regulations: The Federal rules restrict any use of the information to criminally investigate or prosecute any alcohol or drug abuse patient.[facility] the event this information is protected by the Federal Confidentiality of Alcohol and Drug Abuse Patient Records regulations: The Federal rules restrict any use of the information to criminally investigate or prosecute any alcohol or drug abuse patient.[facility] the event this information is protected by the Federal Confidentiality of Alcohol and Drug Abuse Patient Records regulations: The Federal rules restrict any use of the information to criminally investigate or prosecute any alcohol or drug abuse patient.[facility] the event this information is protected by the Federal Confidentiality of Alcohol and Drug Abuse Patient Records regulations: The Federal rules restrict any use of the information to criminally investigate or prosecute any alcohol or drug abuse patient.[facility] Reason for Visit (unrecogniz ed section and content) Reason Onset Date Comments Refill Request 03/20/2022 Reason Comments Radiology NM Specialty Diagnoses / Procedures Referred By Contac t Referred To Contact MOLECULAR & FUNCTIONAL IMAGING Diagnoses Precordial pain Procedures NM CARDIAC PERF STRESS/EXERCISE MYOCARDIAL SPECT MULTIPLE STUDIES Todd Nunn MD [address] [place] [address] Molecular & Functional Imaging [address] [place] [address] Referral ID Status Reason Start Date Expiration Date V isits Requested Visits Authorized [id number] Closed Auto-Generate d Referral 04/11/2022 04/26/2023 1 [...] MYOCARDIAL SPECT MULTIPLE STUDIES Todd Nunn MD [address] [place] [id number] Molecular & Functional Imaging [address] [place] [address] Referral ID Status Reason Start Date Expiration Date V isits Requested Visits Authorized [id number] Closed Auto-Generate d Referral 01/08/2023 02/06/2024 1 1 Reason Comments Follow Up Reason Comments Exercise Prescription Specialty Diagnoses / Procedures Referred By Contac t Referred To Contact Diagnoses Physical deconditioning Procedures CARD PREV EXERCISE PRESCRIPTION OFFICE/OUTPATIENT NEW HIGH MDM 60-74 MINUTES Juan F Portillo MD [address] [place] [id number] Referral ID Status Reason Start Date Expiration Date V isits Requested Visits Authorized [id number] Closed PCP Requested Referral 02/06/2023 02/06/2024 1 1 Reason Comments Patient Question Any additional testi ng? Reason Comments Medication Question Reason Comments New Pain Numbness Reason Onset Date Comments Refill Request 07/15/2023 Reason Comments Hyperlipidemia Reason Onset Date Comments Refill Request 11/11/2023 Reason Comments Hyperlipidemia Reason Comments Patient Question Reason Comments Follow Up Reason Comments Dry Eye Syndrome Evaluation Specialty Diagnoses / Procedures Referred By Darnell t Referred To Contact [facility] Diagnoses Dry eye Procedures CONSULT TO OPHTHALMOLOGY OFFICE/OUTPATIENT NEW HIGH MDM 60 MINUTES Alexis Lott PA-C [address] [place] [address] [facility] [place] [address] [place] [address] Referral ID Status Reason Start Date Expiration Date V isits Requested Visits Authorized [id number] Closed PCP Requested Referral 12/09/2024 12/09/2025 1 1 Care Teams (unrecognized sec tion and content) Quality Facilitator Relationship Specialty Start Date End Date Onel Isaacs MD [address] [place] [address] PCP - General 03/07/01 Kenyatta Dumont Referring Cardiology 05/29/18 Juan F Portillo MD Primary Staff Physician Cardiology 05/10/20 Quality Facilitator Relationship Specialty Start Date End Date Onel Isaacs MD [address] [place] [address] PCP - General 03/07/01 Kenyatta Dumont Referring Cardiology 05/29/18 Juan F Portillo MD Primary Staff Physician Cardiology 05/10/20 Quality Facilitator Relationship Specialty Start Date End Date Onel Isaacs MD [address] [place] [address] PCP - General 03/07/01 Jenna Dumontam Referring Cardiology 05/29/18 Juan F Portillo MD Primary Staff Physician Cardiology 05/10/20 Quality Facilitator Relationship Specialty Start Date End Date Onel Isaacs MD [address] [facility] [place] [address] PCP - General 03/07/01 [facility] 05/29/18 Juan F Portillo MD Primary Staff Physician Cardiology 05/10/20 Quality Facilitator Relationship Specialty Start Date End Date Onel Isaacs MD [address] [facility] [place] [address] PCP - General 03/07/01 [facility] Referring Cardiology 05/29/18 Juan F Portillo MD Primary Staff Physician Cardiology 05/10/20 Quality Facilitator Relationship Specialty Start Date End Date Onel Isaacs MD [address] [facility] [address] PCP - General 03/07/01 [facility] [address] [place] [address] Referring Cardiology 05/29/18 Juan F Portillo MD [address] [place] [address] Primary Staff Physician Cardiology 05/10/20 Quality Facilitator Relationship Specialty Start Date End Date Onel Isaacs MD [address] [place] [address] PCP - General 03/07/01 Rayray Dumonttham [address] [place] [address] Referring Cardiology 05/29/18 Juan F Portillo MD [address] [place] [address] Primary Staff Physician Cardiology 05/10/20 Quality Facilitator Relationship Specialty Start Date End Date Onel Isaacs MD [address] [place] [address] PCP - General 03/07/01 Jenna Dumontam [address] [place] [address] Referring Cardiology 05/29/18 Juan F Portillo MD [address] [facility] [place] [address] Primary Staff Physician Cardiology 05/10/20 Quality Facilitator Relationship Specialty Start Date End Date Onel Isaacs MD [address] [facility] [place] [address] PCP - General 03/07/01 Jenna Dumontam [address] [place] [address] Referring Cardiology 05/29/18 Juan F Portillo MD [address] [place] [address] Primary Staff Physician Cardiology 05/10/20 Quality Facilitator Relationship Specialty Start Date End Date Onel Isaacs MD [address] [place] [address] PCP - General 03/07/01 Jenna Dumontam [address] [facility] [place] [address] Referring Cardiology 05/29/18 Juan F Portillo MD [address] [facility] [place] [address] Primary Staff Physician Cardiology 05/10/20 Onel Isaacs MD [address] [place] [address] Referring Family Medicine 01/08/23 Quality Facilitator Relationship Specialty Start Date End Date Onel Isaacs MD [address] [facility] [place] [address] PCP - General 03/07/01 Jenna Dumontam [address] [place] [address] Referring Cardiology 05/29/18 Juan F Portillo MD [address] [facility] [place] [address] Primary Staff Physician Cardiology 05/10/20 Onel Isaacs MD [address] [place] [address] Referring Family Medicine 01/08/23 Quality Facilitator Relationship Specialty Start Date End Date Onel Isaacs MD [address] [facility] [place] [address] PCP - General 03/07/01 Rayray Dumonttham [address] [facility] [place] [address] Referring Cardiology 05/29/18 Juan F Portillo MD [address] [facility] [place] [address] Primary Staff Physician Cardiology 05/10/20 Onel Isaacs MD [address] [place] [address] Referring Family Medicine 01/08/23 Quality Facilitator Relationship Specialty Start Date End Date Onel Isaacs MD [address] [facility] [place] [address] PCP - General 03/07/01 [facility] [address] [place] [address] Referring Cardiology 05/29/18 Juan F Portillo MD [address] [place] [address] Primary Staff Physician Cardiology 05/10/20 Onel Isaacs MD [address] [place] [address] Referring Family Medicine 01/08/23 Quality Facilitator Relationship Specialty Start Date End Date Onel Isaacs MD [address] [place] [address] PCP - General 03/07/01 [facility] [address] [place] [address] Referring Cardiology 05/29/18 Juan F Portillo MD [address] [place] [address] Primary Staff Physician Cardiology 05/10/20 Onel Isaacs MD [address] [facility] [place] [address] Referring Family Medicine 01/08/23 Quality Facilitator Relationship Specialty Start Date End Date Onel Isaacs MD [address] [facility] [place] [address] PCP - General 03/07/01 Garciagilma Rayraymatt [address] [place] [address] Referring Cardiology 05/29/18 Juan F Portillo MD [address] [place] [address] Primary Staff Physician Cardiology 05/10/20 Onel Isaacs MD [address] [place] [address] Referring Family Medicine 01/08/23 Quality Facilitator Relationship Specialty Start Date End Date Onel Isaacs MD [address] [place] [address] PCP - General 03/07/01 Tim Rayraymatt [address] [place] [address] Referring Cardiology 05/29/18 Juan F Portillo MD [address] [place] [address] Primary Staff Physician Cardiology 05/10/20 Onel Isaacs MD [address] [place] [facility] [address] Referring Family Medicine 01/08/23 Quality Facilitator Relationship Specialty Start Date End Date Onel Isaacs MD [address] [place] [address] PCP - General 03/07/01 Kenyatta Dumont [address] [place] [address] Referring Cardiology 05/29/18 Juan F Portillo MD [address] [place] [facility] [place] [address] Primary Staff Physician Cardiology 05/10/20 Onel Isaacs MD [address] [place] [facility] [place] [address] Referring Family Medicine 01/08/23 Quality Facilitator Relationship Specialty Start Date End Date Onel Isaacs MD [address] [place] [facility] [place] [address] PCP - General 03/07/01 Kenyatta Dumont [address] [place] [facility] [place] [address] Referring Cardiology 05/29/18 Juan F Portillo MD [address] [place] [facility] [place] [address] Primary Staff Physician Cardiology 05/10/20 Onel Isaacs MD [address] [place] [facility] [place] [address] Referring Family Medicine 01/08/23 Onel Isaacs MD [address] [place] [facility] [place] [address] Referring Family Medicine 06/19/23 Quality Facilitator Relationship Specialty Start Date End Date Onel Isaacs MD [address] [place] [facility] [place] [address] PCP - General 03/07/01 Kenyatta Dumont [address] [place] [address] Referring Cardiology 05/29/18 Juan F Portillo MD [address] [place] [address] Primary Staff Physician Cardiology 05/10/20 Onel Isaacs MD [address] [place] [address] Referring Family Medicine 01/08/23 Onel Isaacs MD [address] [place] [address] Referring Family Medicine 06/19/23 Quality Facilitator Relationship Specialty Start Date End Date Onel Isaacs MD [address] [place] [address] PCP - General 03/07/01 Kenyatta Dumont [address] [place] [address] Referring Cardiology 05/29/18 Juan F Portillo MD [address] [place] [address] Primary Staff Physician Cardiology 05/10/20 Onel Isaacs MD [address] [place] [address] Referring Family Medicine 01/08/23 Onel Isaacs MD [address] [place] [facility] [place] [address] Referring Family Medicine 06/19/23 Quality Facilitator Relationship Specialty Start Date End Date Onel Isaacs MD [address] [place] [facility] [place] [address] PCP - General 03/07/01 Kenyatta Dumont [address] [place] [facility] [place] [address] Referring Cardiology 05/29/18 Juan F Portillo MD [address] [place] [facility] [place] [address] Primary Staff Physician Cardiology 05/10/20 Onel Isaacs MD [address] [place] [facility] [place] [address] Referring Family Medicine 01/08/23 Onel Isaacs MD [address] [place] [facility] [place] [address] Referring Family Medicine 06/19/23 Quality Facilitator Relationship Specialty Start Date End Date Onel Isaacs MD [address] [place] [facility] [place] [address] PCP - General 03/07/01 Kenyatta Dumont [address] [place] [facility] [place] [address] Referring Cardiology 05/29/18 Juan F Portillo MD [address] [place] [facility] [place] [address] Primary Staff Physician Cardiology 05/10/20 Onel Isaacs MD [address] [place] [facility] [place] [address] Referring Family Medicine 01/08/23 Onel Isaacs MD [address] [place] [address] Referring Family Medicine 06/19/23 Quality Facilitator Relationship Specialty Start Date End Date Onel Isaacs MD [address] [place] [address] PCP - General 03/07/01 Kenyatta Dumont [address] [place] [address] Referring Cardiology 05/29/18 Juan F Portillo MD [address] [place] [address] Primary Staff Physician Cardiology 05/10/20 Onel Isaacs MD [address] [place] [address] Referring Family Medicine 01/08/23 Onel Isaacs MD [address] [place] [address] Referring Family Medicine 06/19/23 Quality Facilitator Relationship Specialty Start Date End Date Onel Isaacs MD [address] [place] [address] PCP - General 03/07/01 Kenyatta Dumont [address] [facility] [place] [address] Referring Cardiology 05/29/18 Juan F Portillo MD [address] [facility] [place] [address] Primary Staff Physician Cardiology 05/10/20 Onel Isaacs MD [address] [place] [address] Referring Family Medicine 01/08/23 Onel Isaacs MD [address] [place] [address] Referring Family Medicine 06/19/23 Quality Facilitator Relationship Specialty Start Date End Date Onel Isaacs MD [address] [place] [address] PCP - General 03/07/01 GarciaJenna dillardashely [address] [facility] [place] [address] Referring Cardiology 05/29/18 Juan F Portillo MD [address] [facility] [address] Primary Staff Physician Cardiology 05/10/20 Onel Isaacs MD [address] [facility] [address] Referring Family Medicine 01/08/23 Onel Isaacs MD [address] [facility] [address] Referring Family Medicine 06/19/23 (unrecognized sect ion and content) No Status Records FoundNo Status Records Found INFORMATION SOURCE (unrecogn ized section and content) DATE CREATED AUTHOR 08/16/2024 [facility] DATE CREATED AUTHOR AUTHOR'Darci WOODWARD 12/23/2024 [facility] FOR RECORDS PERTAINING TO PATIENTS WHO [...] BE BASED ON THE PRIMARY CLINICAL RECORDS. [employer] provides no warranty or guarantee of the accuracy or completeness of information in this document.
--- NOTE | 2024-12-23 17:55 | US_ITS ---
The [address] [address] Patient Name: DEBORAH BARROW MRN: [id number] date: 1945 Sex: M Assigned Patient Location: RAD Current Patient Location: RAD Accession/Order Number: [id number] Exam Date: 12/23/2024 18:15 Report Date: 12/23/2024 21:12 At the request of: ONEL ISAACS Procedure: US venous doppler UE LT EXAM: US venous doppler UE LT HISTORY: ARM PAIN M79.603 COMPARISON: None. TECHNIQUE: Grayscale, color Doppler and spectral Doppler waveform analysis was used to evaluate the left upper extremity venous vascular structures. FINDINGS: The internal jugular vein is compressible. The subclavian vein demonstrates normal color flow and waveform analysis. The axillary, brachial, radial, and ulnar veins are compressible. The superficial veins are unremarkable. US/US venous doppler UE LT IMPRESSION: No left upper extremity deep or superficial venous thrombosis. Electronically authenticated by: Renaldo MCNEIL Date: 12/23/2024 21:12
--- NOTE | 2024-12-23 18:52 | XR_ITS ---
[place] [id number] Patient Name: DEBORAH BARROW MRN: [id number] date: 1945 Sex: M Assigned Patient Location: RAD Current Patient Location: Accession/Order Number: [id number] Exam Date: 12/23/2024 18:45 Report Date: 12/25/2024 07:14 At the request of: ONEL ISAACS Procedure: XR wrist LT min 3V PROCEDURE: XR wrist LT min 3V COMPARISON: None. HISTORY: ARM PAIN M79.603 FINDINGS: BONES:No acute fracture or dislocation. Moderate to severe degenerative changes of the medial carpus with joint space narrowing marginal osteophyte formation most significant first carpometacarpal joint SOFT TISSUES:Negative. No visible soft tissue swelling. EFFUSION:None visible. OTHER: Negative. 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
== END 2024-12-23 17:20 | disposition home or self-care (01) ==
PROVIDERS: PCP Family Medicine; Visit Provider Family Medicine
DX: M19.032 Primary osteoarthritis, left wrist (principal); M79.602 Pain in left arm
CPT/HCPCS: 73110; 93971

== ENCOUNTER 2025-03-08 20:40 | Emergency (ER) | payer MEDICARE, OTHER, SELFPAY ==
[2025-03-08 20:49] VITALS: BP 168/92; PULSE 59; TEMP 36.7; O2SAT 99; BMI 26.0
--- OUTSIDE RECORDS SUMMARY | 2025-03-08 20:51 | XMS_ITS | CCD ---
Author Organization [facility] Care Team Providers Care Religious Educator Name Role Phone Onel Isaacs Primary Care [...] Primary Care Provider Sarah SNIDER Attending Unavailable Dae Onel Referring Unavailable Onel Isaacs MD Primary Care Provider [phone] BNEJA DAILEY Attending Unavailable OSMANI, ABEBA Referring Unavailable HOY, ONEL M Primary Care Unavailable OSMANI, ABEBA Attending Unavailable OSMANI, ABEBA Referring Unavailable HOY, ONEL M Primary Care Unavailable ABEBA KEEN Attending Unavailable JUAN F PORTILLO Referring Unavailable HOY, ONEL M Primary Care Unavailable ANGELES DECKER Attending Unavailable HOY, ONEL M Primary Care Unavailable OSMANI, ABEBA Referring Unavailable HOY, ONEL M Primary Care Unavailable SARAH HUITRON Attending Unavailable ALEXIS LOTT Referring Unavailable HOY, ONEL M Primary Care Unavailable ANGELES DECKER Attending Unavailable ONEL ISAACS Primary Care Unavailable Allergies Allergy Classification Reported Allergen(s) Allergy Type Date of Onset Reaction(s) Facility (12 sources) Acetaminophen / HYDROcodone; Translations: [acetaminophen-hy drocodone] Drug Allergy 5 Unknown (qualifier value), Unknown [facility] (7 sources) Codeine; Translations: [codeine] Drug Allergy [address] [facility] (20 sources) Lisinopril; Translations: [lisinopril] Drug Allergy [address] [facility] (12 sources) Amoxicillin; Translations: [amoxicillin] Drug Allergy 5 Diarrhea (finding), Diarrhea [facility] (1 source) Acetaminophen / oxyCODONE; Translations: [Percocet 5/325] Drug Allergy [facility] (8 sources) oxyCODONE; Translations: [OXYCODONE] Drug Allergy 3 Itching [facility] (1 source) Acetaminophen / HYDROcodone; Translations: [HYDROCODONE-ACET AMINOPHEN] Drug Allergy 5 [facility] Medications Current Medications Medication Drug Class(es) Dates Sig (Normalized) Sig (Original) acetaminophen 325 mg oral tablet (20 sources) Start: 09-09-2018 acetaminophen (TYLENOL) 325 mg [...] Comment on above: Take 1 tablet by [facility] once daily. Take one tablet 60 minutes prior to procedure. benoxinate hydrochloride 4 mg/ml / fluorescein sodium 3 mg/ml ophthalmic solution (1 source) Diagnostic Dye Start: 12-22-2024 End: 12-22-2024 fluorescein-benoxinat e 0.3-0.4 % 1 Drop (FLURESS) calcium citrate 600 mg and vitamin D3 (Citrical & Minerals + Vit D) 600-200 MG-UNIT tablet (1 source) calcium citrate 600 mg and vitamin D3 (Citrical & Minerals + Vit D) 600-200 MG-UNIT tablet every 12 (twelve) hours. Active calcium citrate/vitamin D3 (CALCIUM CITRATE + ORAL) [...] tablet (1 source) Muscle Relaxant Start: 08-10-20 24 take 1 tablet by mouth twice daily carisoprodol 350 mg Tab 350 mg = 1 tab(s), Oral, BID, Refills(s) 0 Start Date: 08/10/24 Status: Ordered cholecalciferol 0.05 mg oral capsule (20 sources) Vitamin D take 1 capsule by mouth twice daily Cholecalciferol, Vitamin D3, 50 mcg (2,000 unit) cap Take 1,000 Units by mouth twice daily. Active cholecalciferol (Vitamin D-3) 50 MCG (2000 UT) capsule 1 capsule 1 (one) time each day at the same time. Active Comment on above: Take 1 capsule by [facility] once daily. Take 1,000 Units [...] Dose unde r the tongue once daily. doxycycline hyclate 50 mg oral capsule (1 source) Tetracycline-class Drug Start: 5 End: 5 take 1 capsule by mouth once daily doxycycline (VIBRAMYCIN) 50 mg capsule Take 1 capsule by mouth once daily for 28 days. 28 capsule 12/28/2024 01/25/2025 Active furosemide 20 mg oral tablet (9 sources) Loop Diuretic Start: 4 take 1 tablet by mouth once daily Lasix 20 mg Tab 20 mg = 1 tab(s), Oral, Daily, Refills(s) 0 Start Date: 08/10/24 Status: Ordered irbesartan 300 mg oral tablet (20 sources) Angiotensin 2 Receptor Xiao Start: 2 End: 5 take 1 tablet by mouth once daily at bedtime irbesartan (AVAPRO) 300 mg tablet Indications: Essential hypertension Take 1 tablet by mouth daily at bedtime. 90 tablet 3 01/06/2025 Active Start: 10-18-2021 End: 10-11-2022 take 1 tablet by mouth once daily at bedtime irbesartan (AVAPRO) 300 mg tablet Indications: Essential hypertension Take 1 tablet by mouth daily at bedtime. 90 tablet 3 10/18/2021 10/11/2022 Discontinued Comment on above: Take 1 tablet by myesha th daily at bedtime. iron gluconate (1 source) Start: 03-01-2023 iron gluconate Oral, Daily, Refills(s) 0 Start Date: 03/01/23 Status: Ordered losartan 12.5 mg oral tablet (5 sources) Angiotensin 2 Receptor Xiao Start: 03-17-2018 take 12.5 mg by mouth once daily losartan 12.5 mg, Oral, Daily, Refills(s) 0, High blood pressure Start Date: 03/17/18 Status: Ordered losartan (Cozaar ) 25 MG tablet every 8 (eight) hours. Active 24 hr metoprolol succinate 25 mg extended release oral tablet (20 sources) beta-Adrenergic Xiao Start: 12-08-2024 take 1 tablet by mouth once daily [...] Discontinued (Discontinued by another Health Care Provider) take 1 tablet by myesha th every twenty-four hours metoprolol succinate XL (Toprol-XL) 50 MG 24 hr tablet Take by mouth. Do not crush or chew. Active Comment on above: Take 1 tablet by myesha th once daily. Take 1 tablet by myesha th every evening. take 1 tablet by myesha th every evening Multiple Vitamins-Minerals (Centrum Silver 50+Men) tablet (1 source) Multiple Vitamins-Minerals (Centrum Silver 50+Men) tablet 1 (one) time each day at the same time. Active MULTIVITAMIN ORAL (6 sources) MULTIVITAMIN ORA L Take by mouth. Active [...] 1 tablet by myesha th once daily. Markabelinodivya-her b no.310 (AIRBORNE EVERYDAY STRESS AWAY) 1,000 mg-200 mg-360 mg pwpk (20 sources) Start: 09-09-2018 take 360 mg by mouth once daily gz-la-Kdoris-he rb no.310 (AIRBORNE EVERYDAY STRESS AWAY) 1,000 [...] Drop in both e yes twice daily. omeprazole 40 mg delayed release oral capsule (1 source) Proton Pump Inhibitor omeprazole (PriLOSEC) [address] capsule 1 capsule 1 (one) time each day at the same time. Active ondansetron 4 mg disintegrating oral tablet (1 source) Serotonin-3 Receptor Antagonist ondansetron ODT (Zof ran-ODT) 4 MG disintegrating tablet every 12 (twelve) hours. Active OTC PRODUCT (20 sources) OTC PRODUCT 0.9% [...] proparacaine 0.5 % 1 Drop (ALCAINE) psyllium 6000 mg powder for oral suspension (1 source) psyllium (Metamu cil) 100 % powder 1 (one) time each day at the same time. Active psyllium husk, bulk, 100 % powd (20 sources) psyllium husk, b ulk, 100 % powd 1 teaspoonful twice daily. Active psyllium husk, b ulk, 100 % powd 1 teaspoonful twice daily. 0 Active Comment on above: 1 teaspoonful twice daily. saw palmetto (1 source) Start: 8 saw palmetto Oral, Daily, Refill(s) 0, Prophylaxis Start Date: 09/09/18 Status: Ordered saw palmetto (Serenoa repens) 450 MG capsule (1 source) saw palmetto (Serenoa repens) 450 MG capsule 1 (one) time each day at the same time. Active saw palmetto 80 MG capsule (1 source) take 1 tablet by mouth once daily saw palmetto 80 MG capsule take 1 Tablet by Oral route every day Oral Active Saw palmetto extract (3 sources) Start: 8 saw palmetto Oral, Daily, Refill(s) 0, Prophylaxis Start Date: 09/09/18 Status: Ordered simvastatin 20 mg oral tablet (7 sources) HMG-CoA Reductase Inhibitor Start: 4 simvastatin (ZOCOR) 20 mg tablet daily at bedtime. 07/08/2024 Active 125 ml sodium chloride 9 mg/ml prefilled syringe (20 sources) Start: 3 sodium chloride 0.9% Irr Kathryn 500 mL [...] Ordered Start: 05-19-2019 [facility] hours as needed for pain [...] 12-22-19 tropicamide 1 % 1 Drop (MYDRIACYL) ubidecarenone 30 mg oral capsule (1 source) coenzyme Q-10 30 MG capsule Co Q-10 Active ubidecarenone 100 mg / vitamin e 150 unt oral capsule (1 source) Coenzyme V99-Zzdbggv E (Qunol Ultra CoQ10) 100-150 MG-UNIT capsule Orally Active ubidecarenone/vitamin E mixed (COQ10 SG 100 ORAL) (20 sources) take 1 capsule by mouth once daily ubidecarenone/delphine min E mixed (COQ10 SG 100 ORAL) Take [...] Refills(s) 0 Start Date: 08/10/24 Status: Ordered vitamin b12 0.1 mg oral tablet (1 source) Vitamin B12 take 1 tablet by mouth in the morning cyanocobalamin (Vitamin B-12) 100 MCG tablet Take 100 mcg by mouth in the morning. Active Vitamin D2 2000 intl units oral capsule [...] tablet (3 sources) Muscle Relaxant Start: End: 023 take 1 tablet by mouth every twenty-four [...] twice daily. ELDERBERRY FRUIT (13 sources) End: 023 elderberry fruit (ELDERBERRY ORAL) Take 1 teaspoonful [...] 1 tablet by myesha th once daily. iv contrast (will be provided [...] mg/mL (1 %) 8 mL injection (XYLOCAINE) li-ob-wohQ-asbNa-Glu- Juli-hc124 (AIRBORNE, ASCORBATE SODIUM,) 334-1.7 mg chew (4 sources) take 1 tablet by mouth once daily tz-su-wamA-asbNa-Glu -Juli-hc124 (AIRBORNE, ASCORBATE SODIUM,) 334-1.7 mg chew Take 1 tablet by mouth once daily. 0 Active Comment on above: Take 1 tablet by myesha th once daily. ps-gi-lsgZ-asbNa-Glu- Juli-hc124 334-1.7 mg chew (17 sources) End: 08-13-20 take 1 tablet by mouth once daily bp-eg-mtpS-asbNa-Glu -Juli-hc124 334-1.7 mg chew Take 1 tablet by mouth once daily. 0 08/13/2023 Discontinued (Duplicate Entry) take 1 tablet by myesha th once daily kq-kn-muqI-wrbEc-Ika-Fyh-hc124 334-1.7 m g chew Take 1 tablet by mouth once daily. 0 Active Comment on above: Take 1 tablet by myesha th once daily. omega 3-ebr-gni-fish oil (FISH OIL) 900-1,400 mg cpDR (20 sources) Start: 04-12-2021 End: 02-11-2024 omega 1-ppi-wie-fish oil (FISH OIL) 900-1,400 mg cpDR Take 1,400 mg by mouth once daily. 0 04/12/2021 02/11/2024 Discontinued (Course of therapy completed) Start: 04-12-2021 omega 3-dha-ep a-fish oil (FISH OIL) 900-1,400 mg cpDR Take 1,400 mg by mouth once daily. 0 04/12/2021 Active Comment on above: Take 1,400 mg by myesha th once daily. SAW PALMETTO ORAL (14 sources) End: 03-15-2023 take 1 tablet by mouth once daily [...] 08-25-2015 Chronic Comment on above: occasionally Cataract (7 sources) Artificial lens present; Translations: [Presence of [...] Chronic Hemorrhoids (4 sources) Hemorrhoids 03-09-2022 Episodic Immunizations and screening for infectious disease (3 sources) Patient encounter status; Translations: [Encounter for screening for human immunodeficiency virus [HIV]] Onset: 5 12-28-2024 Episodic Malaise and fatigue (2 sources) Physical deconditioning; Translations: [Other malaise] Episodic Nonspecific chest pain (6 sources) Precordial pain; Translations: [Precordial pain] Episodic Other aftercare (1 source) Encounter for therapeutic drug level monitoring; Translations: [Encounter for therapeutic drug level monitoring] Onset: 5 Episodic Other and unspecified benign neoplasm (4 [...] cuff syndrome 02-05-2014 Episodic Other eye disorders (7 sources) Dry eyes; Translations: [Dry eye syndrome of unspecified lacrimal gland] Onset: 5 12-22-2024 Episodic Other eye disorders (7 sources) Meibomian gland dysfunction of bilateral eyes; Translations: [Meibomian gland dysfunction right eye, upper and lower eyelids] Onset: 5 12-22-2024 Episodic Other eye disorders (8 sources) Dermatochalasis of right upper eyelid; Translations: [Dermatochalasis] Onset: 5 12-22-2024 Episodic Other eye disorders (6 sources) Disorder of lacrimal gland; Translations: [Dry eye syndrome of bilateral lacrimal glands] Onset: 5 12-22-2024 Episodic Other eye disorders (1 source) Ptosis of bilateral eyebrows; Translations: [Brow ptosis, bilateral] 12-28-2024 Episodic Other eye disorders (1 source) Brow ptosis, bilateral; Translations: [Brow ptosis, bilateral] Onset: 5 Episodic Other eye disorders (1 source) Dry eye syndrome of bilateral lacrimal glands; Translations: [Dry eye syndrome of bilateral lacrimal glands] Onset: 5 Episodic Other eye disorders (1 source) Dry eye syndrome of unspecified lacrimal gland; Translations: [Dry eye] Onset: 5 Episodic Other eye disorders (1 source) Dermatochalasis of left upper eyelid; Translations: [Dermatochalasis of both upper eyelids] Onset: 5 Episodic Other gastrointestinal disorders (20 sources) History [...] conditions (not mental disorders or infectious disease) (6 sources) Serum creatinine raised; Translations: [Other specified abnormal findings of blood chemistry] Onset: 5 Episodic Other skin disorders (4 sources) Mass of parotid gland 11-01-2014 Episodic Comment on above: RIGHT Residual codes; unclassified (5 sources) FH: Hypertension 07-15-2014 Episodic Residual codes; unclassified (1 source) Procedure needed; Translations: [Other specified health status] Episodic Residual codes; unclassified (1 source) Difficulty managing exercise regime; Translations: [Other specified health status] Episodic Unclassified (5 sources) Bleeding ulcer (morphologic [...] 10-29-2016 10-29-2016 Episodic Coagulation and hemorrhagic disorders (9 sources) Secondary thrombocytopenia; Translations: [Other secondary thrombocytopenia] Onset: 08-12-2018 Resolved: 08-10-2024 08-19-2018 Episodic Complications of surgical procedures or medical care (16 sources) Hypotension following procedure; Translations: [Postprocedural hypotension] Onset: 08-12-2018 Resolved: 08-20-2018 08-13-2018 Episodic Congestive heart failure; nonhypertensive (9 sources) Heart failure; Translations: [Heart failure, unspecified] Onset: 08-12-2018 Resolved: 08-10-2024 08-14-2018 Chronic Diabetes mellitus without complication (8 sources) Metabolic stress hyperglycemia; Translations: [Hyperglycemia, unspecified] Onset: 08-12-2018 Resolved: 08-15-2018 08-15-2018 Episodic Fluid and electrolyte disorders (8 sources) Hypervolemia; Translations: [Fluid overload, unspecified] Onset: 08-15-2018 Resolved: 08-20-2018 08-20-2018 Episodic Other nervous system disorders (8 sources) Acute postoperative pain; Translations: [Other acute postprocedural pain] Onset: 08-12-2018 Resolved: 08-16-2018 08-16-2018 Episodic Pleurisy; pneumothorax; pulmonary collapse (8 sources) Atelectasis; Translations: [Atelectasis] Onset: 08-15-2018 Resolved: 08-19-2018 08-19-2018 Episodic Residual codes; unclassified (20 sources) Other amnesia; Translations: [Memory loss] Onset: 01-09-2017 01-09-2017 Episodic Residual codes; unclassified (20 sources) Age-associated memory impairment; Translations: [Other amnesia] Onset: 01-09-2017 01-09-2017 Episodic Residual codes; unclassified (11 sources) Memory finding; Translations: [Other amnesia] Onset: 01-09-2017 01-09-2017 Episodic Residual codes; unclassified (7 sources) Transition of care; Translations: [Other specified health status] Onset: 08-15-2018 08-20-2018 Episodic Respiratory failure; insufficiency; arrest (adult) (8 sources) Ventilator finding; Translations: [Dependence on respirator [ventilator] status] Onset: 08-12-2018 Resolved: 08-13-2018 08-13-2018 Chronic Spondylosis; intervertebral disc disorders; other back problems (7 sources) Low back pain; Translations: [Bilateral low back pain] Onset: 06-10-2023 02-05-2014 Episodic Sprains and strains (15 sources) Strain of muscle(s) and tendon(s) of the rotator cuff of right shoulder, initial encounter; Translations: [Rotator cuff (capsule) sprain] Onset: 07-08-2023 07-08-2023 Episodic Results Test Name Value Interpretation Reference Range Facility ACTIVATED PARTIAL THROMBOPLA STIN TIMEon 12-28-2024 aPTT Coag (PPP) [Time] 27.1 s [facility] CBC W Auto Differential pane l (Bld)on 12-28-2024 Basophils (Bld) [#/Vol] [facility] Basophils/100 WBC (Bld) 0.3 % [facility] Differential cell count method Nom (Bld) Auto [facility] Eosinophils (Bld) [#/Vol] 0.06 10*3/uL [facility] Eosinophils/100 WBC (Bld) 0.9 % [facility] Erythrocyte distribution width (RBC) [Ratio] 15.5 % High 11.5 - 15.0 % [facility] Hematocrit (Bld) [Volume fraction] 47.1 % 39.0 - 51.0 % [facility] Hemoglobin (Bld) [Mass/Vol] 15.1 g/dL 13.0 - 17.0 g/dL [facility] Immature granulocytes (Bld) [#/Vol] [facility] Immature granulocytes/100 WBC (Bld) 0.1 % [facility] Interpretation and review of laboratory results Abnormal [facility] Lymphocytes (Bld) [#/Vol] 2.38 10*3/uL [facility] Lymphocytes/100 WBC (Bld) 35.3 % [facility] MCH (RBC) [Entitic mass] 27.9 pg 26.0 - 34.0 pg [facility] MCHC (RBC) [Mass/Vol] 32.1 g/dL 30.5 - 36.0 g/dL [facility] MCV (RBC) [Entitic vol] 87.1 fL 80.0 - 100.0 fL [facility] Monocytes (Bld) [#/Vol] 0.50 10*3/uL [facility] Monocytes/100 WBC (Bld) 7.4 % [facility] Neutrophils (Bld) [#/Vol] 3.77 10*3/uL [facility] Neutrophils/100 WBC (Bld) 56.0 % [facility] Nucleated RBC (Bld) [#/Vol] NINF [facility] Nucleated RBC/100 WBC (Bld) [Ratio] 0.0 % /100 WBC [facility] Platelet mean volume (Bld) [Entitic vol] 11.4 fL 9.0 - 12.7 fL [facility] Platelets (Bld) [#/Vol] 161 10*3/uL [facility] RBC (Bld) [#/Vol] 5.41 10*6/uL 4.20 - 6.0 0 m/uL [facility] WBC (Bld) [#/Vol] 6.74 10*3/uL [facility] Basophils (Bld) [#/Vol] 10*3/uL Normal <0.11 [facility] Comment on above: Order Comment: Speci men Type: BLOOD SPECIMENOrdering Facility: [facility] Address: [address] [place] [address] Performed By: #### 5 7021-8 ####[facility] LABCLIA [id number] [place] [address] [place] Basophils/100 WBC (Bld) 0.3 % Normal [facility] Comment on above: Order Comment: Speci men Type: BLOOD SPECIMENOrdering Facility: [facility] Address: [address] [place] [address] Performed By: #### 5 7021-8 ####[facility] LABCLIA [id number] [place] [address] [place] Differential cell count method Nom (Bld) Auto Normal [facility] Comment on above: Order Comment: Speci men Type: BLOOD SPECIMENOrdering Facility: [facility] Address: [address] [place] [address] Performed By: #### 5 7021-8 ####[facility] LABCLIA [id number] [place] [address] [place] Eosinophils (Bld) [#/Vol] 0.06 10*3/uL Normal <0.46 [facility] Comment on above: Order Comment: Speci men Type: BLOOD SPECIMENOrdering Facility: [facility] Address: [address] [place] [address] Performed By: #### 5 7021-8 ####[facility] LABCLIA [id number] [place] [address] [place] Eosinophils/100 WBC (Bld) 0.9 % Normal [facility] Comment on above: Order Comment: Speci men Type: BLOOD SPECIMENOrdering Facility: [facility] Address: [address] [place] [address] Performed By: #### 5 7021-8 ####[facility] LABIA [id number] [place] [address] [place] Erythrocyte distribution width (RBC) [Ratio] 15.5 % High 11.5-15.0 [facility] Comment on above: Order Comment: Speci men Type: BLOOD SPECIMENOrdering Facility: [facility] Address: [address] [place] [address] Performed By: #### 5 7021-8 ####[facility] LABIA [id number] [place] [address] [place] Hematocrit (Bld) [Volume fraction] 47.1 % Normal 39.0-51.0 [facility] Comment on above: Order Comment: Speci men Type: BLOOD SPECIMENOrdering Facility: [facility] Address: [address] [place] [address] Performed By: #### 5 7021-8 ####[facility] LABIA [id number] [place] [address] [place] Hemoglobin (Bld) [Mass/Vol] 15.1 g/dL Normal 13.0-17.0 [facility] Comment on above: Order Comment: Speci men Type: BLOOD SPECIMENOrdering Facility: [facility] Address: [address] [place] [address] Performed By: #### 5 7021-8 ####[facility] LABCLIA [id number] [place] [address] [place] Immature granulocytes (Bld) [#/Vol] 10*3/uL Normal <0.10 [facility] Comment on above: Order Comment: Speci men Type: BLOOD SPECIMENOrdering Facility: [facility] Address: [address] [place] [address] Performed By: #### 5 7021-8 ####[facility] LABCLIA [id number] [place] [address] [place] Immature granulocytes/100 WBC (Bld) 0.1 % Normal [facility] Comment on above: Order Comment: Speci men Type: BLOOD SPECIMENOrdering Facility: [facility] Address: [address] [place] [address] Performed By: #### 5 7021-8 ####[facility] LABCLIA [id number] [place] [address] [place] Lymphocytes (Bld) [#/Vol] 2.38 10*3/uL Normal 1.00-4.00 [facility] Comment on above: Order Comment: Speci men Type: BLOOD SPECIMENOrdering Facility: [facility] Address: [address] [place] [address] Performed By: #### 5 7021-8 ####[facility] LABCLIA [id number] [place] [address] [place] Lymphocytes/100 WBC (Bld) 35.3 % Normal [facility] Comment on above: Order Comment: Speci men Type: BLOOD SPECIMENOrdering Facility: [facility] Address: [address] [place] [address] Performed By: #### 5 7021-8 ####[facility] LABCLIA [id number] [place] [address] [place] MCH (RBC) [Entitic mass] 27.9 pg Normal 26.0-34.0 [facility] Comment on above: Order Comment: Speci men Type: BLOOD SPECIMENOrdering Facility: [facility] Address: [address] [place] [address] Performed By: #### 5 7021-8 ####[facility] LABIA [id number] [place] [address] [place] MCHC (RBC) [Mass/Vol] 32.1 g/dL Normal 30.5-36.0 [facility] Comment on above: Order Comment: Speci men Type: BLOOD SPECIMENOrdering Facility: [facility] Address: [address] [place] [address] Performed By: #### 5 7021-8 ####[facility] [id number] [place] [address] [place] MCV (RBC) [Entitic vol] 87.1 fL Normal 80.0-100.0 [facility] Comment on above: Order Comment: Speci men Type: BLOOD SPECIMENOrdering Facility: [facility] Address: [address] [place] [address] Performed By: #### 5 7021-8 ####[facility] [id number] [place] [address] [place] Monocytes (Bld) [#/Vol] 0.50 10*3/uL Normal <0.87 [facility] Comment on above: Order Comment: Speci men Type: BLOOD SPECIMENOrdering Facility: [facility] Address: [address] [place] [address] Performed By: #### 5 7021-8 ####[facility] LABIA [id number] [place] [address] [place] Monocytes/100 WBC (Bld) 7.4 % Normal [facility] Comment on above: Order Comment: Speci men Type: BLOOD SPECIMENOrdering Facility: [facility] Address: [address] [place] [address] Performed By: #### 5 7021-8 ####[facility] LABCLIA [id number] [place] [address] [place] Neutrophils (Bld) [#/Vol] 3.77 10*3/uL Normal 1.45-7.50 [facility] Comment on above: Order Comment: Speci men Type: BLOOD SPECIMENOrdering Facility: [facility] Address: [address] [place] [address] Performed By: #### 5 7021-8 ####[facility] LABCLIA [id number] [place] [address] [place] Neutrophils/100 WBC (Bld) 56.0 % Normal [facility] Comment on above: Order Comment: Speci men Type: BLOOD SPECIMENOrdering Facility: [facility] Address: [address] [place] [address] Performed By: #### 5 7021-8 ####[facility] LABCLIA [id number] [place] [address] [place] Nucleated RBC (Bld) [#/Vol] 10*3/uL Normal <0.01 [facility] Comment on above: Order Comment: Speci men Type: BLOOD SPECIMENOrdering Facility: [facility] Address: [address] [place] [address] Performed By: #### 5 7021-8 ####[facility] LABCLIA [id number] [place] [address] [place] Nucleated RBC/100 WBC (Bld) [Ratio] 0.0 /100 WBC Normal [facility] Comment on above: Order Comment: Speci men Type: BLOOD SPECIMENOrdering Facility: [facility] Address: [address] [place] [address] Performed By: #### 5 7021-8 ####[facility] LABCLIA [id number] [place] [address] [place] Platelet mean volume (Bld) [Entitic vol] 11.4 fL Normal 9.0-12.7 [facility] Comment on above: Order Comment: Speci men Type: BLOOD SPECIMENOrdering Facility: [facility] Address: [address] [place] [address] Performed By: #### 5 7021-8 ####[facility] LABIA [id number] [place] [address] [place] Platelets (Bld) [#/Vol] 161 10*3/uL Normal 150-400 [facility] Comment on above: Order Comment: Speci men Type: BLOOD SPECIMENOrdering Facility: [facility] Address: [address] [place] [address] Performed By: #### 5 7021-8 ####[facility] LABIA [id number] [place] [address] [place] RBC (Bld) [#/Vol] 5.41 10*6/uL Normal 4.20-6.00 [facility] Comment on above: Order Comment: Speci men Type: BLOOD SPECIMENOrdering Facility: [facility] Address: [address] [place] [address] Performed By: #### 5 7021-8 ####[facility] LABIA [id number] [place] [address] [place] WBC (Bld) [#/Vol] 6.74 10*3/uL Normal 3.70-11.00 [facility] Comment on above: Order Comment: Speci men Type: BLOOD SPECIMENOrdering Facility: [facility] Address: [address] [place] [address] Performed By: #### 5 7021-8 ####[facility] LABIA [id number] [place] [address] [place] CNOVon 12-28-2024 CNOV Office Visit (PLASMN ) WALLY BARROW ([id number]) 1945 M Date Time Provider Department 12/28/24 11:15 AM ANGELES DECKER During your visit today, we recorded the following information about you: Angeles Decker MD 12/28/2024 1:22 PM Signed BLEPHAROPLASTY Patient Evaluation and Operative Planning CC: ....Consult.Bilateral upper and brow lift ......... ? HPI: Wally is a 79 year old male who presents today for evaluation of bilateral upper blepharoplasty and brow lift. Patient was seen by a plastic surgeon in [place] and was approved for surgery but would like a second opinion. Patient has had multiple seborrheic keratosis that was treated by a semiconductor wafers etcher stripper with liquid nitrogen. Patient reports that he [...] benefit from a blepharoplasty and brow lift. Patient was seen by Optometry on 12/22/24 for a Dash test. -Normal Dash's test result OD 25 mm OS 22 mm Patient was approved for browlift and upper blepharoplasty. He is here today to discuss a surgery date. Occupation: Retired Patient Concerns: Tired appearance: yes [...] Current Outpatient Medications Medication Sig Dispense Refill MULTIVITAMIN ORAL Take by mouth. metoprolol succinate ER (TOPROL XL) 25 mg 24 hr tablet Take 1 tablet by mouth every evening. 90 tablet 3 furosemide (LASIX) 20 mg tablet Take 20 mg by mouth once daily. simvastatin (ZOCOR) 20 mg tablet daily at bedtime. irbesartan (AVAPRO) 300 mg tablet Take 1 tablet by mouth daily at bedtime. 90 tablet 3 iron bisgly,ps-FA-B-C#12-succ 65 mg-65 mg -1,000 mcg (24) tab Take 65 mg by mouth once weekly aspirin, enteric coated (ASPIRIN, ENTERIC COATED) 81 mg EC tablet Take 81 mg by mouth once daily. OTC PRODUCT once daily. OTC Force Factor take 3 tablet once per day zs-wx-R-theanine-herb no.310 (AIRBORNE EVERYDAY STRESS AWAY) 1,000 mg-200 mg-360 mg pwpk Take by mouth. acetaminophen (TYLENOL) 325 mg tablet Take 650 mg by mouth as needed for pain. sodium chloride (SALINE MIST NASAL) Use in the nose. azithromycin (ZITHROMAX) 500 mg tablet Take 1 tablet by mouth once daily. Take one tablet 60 minutes prior to procedure. 1 tablet 0 olopatadine (PATADAY TWICE DAILY RELIEF) 0.1 % [...] taken for this visit. ALLERGIES Allergen Reactions Hydrocodone-Acetami* Unknown Lisinopril Cough Oxycodone Itching Amoxicillin Diarrhea There is no height or weight on file to calculate BMI. Estimated body surface area is 2.04 meters squared as calculated from the following: Height as of 12/01/24: 177.8 cm (5' 10 ). Weight as of 12/01/24: 83.9 kg (185 lb). No results fou (more content not included)... Normal [facility] Ashley 12-28-2024 [place] Telephone (OPHTLAlisia) WALLY BARROW ([id number]) 1945 M Date Time Provider Department 12/28/24 SARAH HUITRON During your visit today, we recorded the following information about you: Radha Garcia 12/28/2024 3:46 PM Signed Saw pt on (12/22/24) at visit pt states prescribed him an antibiotic. Pt would like antibiotic and would like it sent to [facility] in [id number] [place] [address] Sarah Huitron, OD 12/28/2024 5:02 PM Signed Rx sent in for doxy 50 qd x 4 weeks M Tomy Allergies As of Date: 12/28/2024 Noted Allergy Reaction HYDROCODONE-ACETAMINOPHEN 12/08/2024 16 - Unknown LISINOPRIL 04/26/2017 3 - Cough OXYCODONE 06/10/2023 9 - Itching AMOXICILLIN 12/08/2024 6 - Diarrhea Date Reviewed: 12/28/2024 Reviewed by: Angeles Decker MD - Fully Assessed Reason for Visit: Orders [681] Prescriptions as of 12/28/2024 - doxycycline (VIBRAMYCIN) 50 mg capsule Take 1 capsule by mouth once daily for 28 days. - MULTIVITAMIN ORAL Take by mouth. - metoprolol succinate ER (TOPROL XL) 25 mg 24 hr tablet Take 1 tablet by mouth every evening. - furosemide (LASIX) 20 mg tablet Take 20 mg by mouth once daily. - simvastatin (ZOCOR) 20 mg tablet daily at bedtime. - irbesartan (AVAPRO) 300 mg tablet Take 1 tablet by mouth daily at bedtime. - iron bisgly,ps-FA-B-C#12-succ 65 mg-65 mg -1,000 mcg (24) tab Take 65 mg by mouth once weekly - aspirin, enteric coated (ASPIRIN, ENTERIC COATED) 81 mg EC tablet Take 81 mg by mouth once daily. - OTC PRODUCT once daily. OTC Force Factor take 3 tablet once per day - cp-yr-X-theanine-herb no.310 (AIRBORNE EVERYDAY STRESS AWAY) 1,000 mg-200 mg-360 mg pwpk Take by mouth. - acetaminophen (TYLENOL) 325 mg tablet Take 650 mg by mouth as needed for pain. - sodium chloride (SALINE MIST NASAL) Use in the nose. - azithromycin (ZITHROMAX) 500 mg tablet Take 1 tablet by mouth once daily. Take one tablet 60 minutes prior to procedure. - olopatadine (PATADAY TWICE DAILY RELIEF) 0.1 [...] 100 % powd 1 teaspoonful twice daily. Problem List As Of Date 12/28/2024 Noted Resolved Palpitations [R00.2] 10/29/2016 Primary hypertension [...] complete tear of right rotator cuff [*07/08/2023 Dry eye syndrome of bilateral lacrimal glands [*12/22/2024 Dry eye [H04.129] 12/22/2024 Meibomian gland dysfunction (MGD) of upper and *12/22/2024 Dermatochalasis of both upper eyelids [H02.831,*12/22/2024 Pseudophakia [Z96.1] 12/22/2024 Encounter Status:Closed by RADHA GARCIA on 12/28/24 Normal [facility] Comprehensive metabolic 2000 panelon 12-28-2024 Albumin [Mass/Vol] 4.5 g/dL Normal 3.9-4.9 [facility] Comment on above: Order Comment: Speci men Type: BLOOD SPECIMENOrdering Facility: [facility] Address: [address] [place] [address] Performed By: #### 2 4323-8, 99046-2 ####[facility] LABCLIA [id number] [place] [address] [place] ALP [Catalytic activity/Vol] 95 U/L Normal 38-113 [facility] Comment on above: Order Comment: Speci men Type: BLOOD SPECIMENOrdering Facility: [facility] Address: [address] [place] [address] Performed By: #### 2 4323-8, 52565-7 ####[facility] LABCLIA [id number] [place] [address] [place] ALT [Catalytic activity/Vol] 19 U/L Normal 10-54 [facility] Comment on above: Order Comment: Speci men Type: BLOOD SPECIMENOrdering Facility: [facility] Address: [address] [id number] Performed By: #### 2 4323-8, 44410-0 ####[facility] LABCLIA [id number] [place] [id number] [place] Anion gap [Moles/Vol] 11 mmol/L Normal 8-15 [facility] Comment on above: Order Comment: Speci men Type: BLOOD SPECIMENOrdering Facility: [facility] Address: [address] [place], [place] [address] Performed By: #### 2 4323-8, 87509-9 ####[facility] LABCLIA [id number] [place] [address] [place] AST [Catalytic activity/Vol] 25 U/L Normal 14-40 [facility] Comment on above: Order Comment: Speci men Type: BLOOD SPECIMENOrdering Facility: [facility] Address: [address] [place] [address] Performed By: #### 2 4323-8, 81788-8 ####[facility] LABCLIA [id number] [place] [address] [place] Bilirubin [Mass/Vol] 0.5 mg/dL Normal 0.2-1.3 [facility] Comment on above: Order Comment: Speci men Type: BLOOD SPECIMENOrdering Facility: [facility] Address: [address] [id number] Performed By: #### 2 4323-8, 25241-2 ####[facility] LABCLIA [id number] [place] [address] [place] Calcium [Mass/Vol] 9.6 mg/dL Normal 8.5-10.2 [facility] Comment on above: Order Comment: Speci men Type: BLOOD SPECIMENOrdering Facility: [facility] Address: [address] [place], [place] [address] Performed By: #### 2 4323-8, 06447-5 ####[facility] LABCLIA [id number] [place] [address] [place] Chloride [Moles/Vol] 109 mmol/L High 98-107 [facility] Comment on above: Order Comment: Speci men Type: BLOOD SPECIMENOrdering Facility: [facility] Address: [address] [place] [address] Performed By: #### 2 4323-8, 60075-4 ####[facility] LABCLIA [id number] [place] [address] [place] CO2 [Moles/Vol] 23 mmol/L Normal 22-30 [facility] Comment on above: Order Comment: Speci men Type: BLOOD SPECIMENOrdering Facility: [facility] Address: [address] [place] [address] Performed By: #### 2 4323-8, 82859-6 ####[facility] LABCLIA [id number] [place] [address] [place] Creatinine [Mass/Vol] 1.16 mg/dL Normal 0.73-1.22 [facility] Comment on above: Order Comment: Speci men Type: BLOOD SPECIMENOrdering Facility: [facility] Address: [address] [place] [address] Performed By: #### 2 4323-8, 46494-0 ####[facility] LABIA [id number] [place] [address] [place] Creatinine and Glomerular filtration rate.predicted panel (S/P/Bld) 64 mL/min/1.73m??? Normal >=60 [facility] Comment on above: Order Comment: Speci men Type: BLOOD SPECIMENOrdering Facility: [facility] Address: [address] [place] [address] Result Comment: Debbie mated Glomerular Filtration Rate [...] accurately reflect actual GFR. Performed By: #### 2 4323-8, 50511-9 ####[facility] LABCLIA [id number] [address] [address] [place] Glucose [Mass/Vol] 91 mg/dL Normal 74-99 [facility] Comment on above: Order Comment: Speci men Type: BLOOD SPECIMENOrdering Facility: [facility] Address: [address] [place] [address] Result Comment: The [place] Diabetes Association (ADA) provides guidance for cutoff [...] Standards of Medical Care in Diabetes 2016, [place] Diabetes Association. Diabetes Care. 2016.39(Suppl 1). Performed By: #### 2 4323-8, 80102-5 ####[facility] LABCLIA [id number] [place] [id number] [place] Potassium [Moles/Vol] 4.4 mmol/L Normal 3.7-5.1 [facility] Comment on above: Order Comment: Speci men Type: BLOOD SPECIMENOrdering Facility: [facility] Address: [address] [place] [address] Performed By: #### 2 4323-8, 71172-4 ####[facility] LABCLIA [id number] [address] [address] [place] Protein [Mass/Vol] 7.0 g/dL Normal 6.3-8.0 [facility] Comment on above: Order Comment: Speci men Type: BLOOD SPECIMENOrdering Facility: [facility] Address: [address] [place] [address] Performed By: #### 2 4323-8, 67902-7 ####[facility] LABCLIA [id number] [place] [address] [place] Sodium [Moles/Vol] 143 mmol/L Normal 136-144 [facility] Comment on above: Order Comment: Speci men Type: BLOOD SPECIMENOrdering Facility: [facility] Address: [address] [place] [address] Performed By: #### 2 4323-8, 88531-2 ####[facility] LABCLIA [id number] [place] [address] [place] Urea nitrogen [Mass/Vol] 8 mg/dL Low 9-24 [facility] Comment on above: Order Comment: Speci men Type: BLOOD SPECIMENOrdering Facility: [facility] Address: [address] [place] [address] Performed By: #### 2 4323-8, 56794-9 ####[facility] LABCLIA [id number] [place] [address] [place] HAV IgM Ser Qlon 12-28-2024 HAV IgM Ql (S) Negative Normal Negative [facility] Comment on above: Order Comment: Speci men Type: BLOOD SPECIMENOrdering Facility: [facility] Address: [address] [place] [address] Result Comment: No e vidence of recent infection with Hepatitis A virus. Performed By: #### 3 1201-7, 67811-3, 5195-3 ####[facility] LABCLIA [id number] [place] [address] [place] HBV core Ab Ser Qlon 025 HBV core Ab Ql (S) Negative Normal Negative [facility] Comment on above: Order Comment: Speci men Type: BLOOD SPECIMENOrdering Facility: [facility] Address: [address] [place] [address] Result Comment: No e vidence of current or past infection with Hepatitis B virus. Should recent infection be suspected, repeat testing may be considered 3-4 weeks after this draw. Performed By: #### 5 195-3, 81463-3, 57152-1, 19328-4 ####[facility] LABCLIA [id number] [place] [address] [place] HBV core IgM Ser Qlon 2024 HBV core IgM Ql (S) Negative Normal Negative [facility] Comment on above: Order Comment: Chitra mcgowan Type: BLOOD SPECIMENOrdering Facility: [facility] Address: [address] [place] [address] Result Comment: No e vidence of recent infection with Hepatitis B virus. Should recent infection be suspected, repeat testing may be considered 3-4 weeks after this draw. Performed By: #### 5 195-3, 17874-9, 90558-5, 74859-2 ####[facility] LABCLIA [id number] [address] [place] HBV surface Ab Ql (S)on HBV surface Ab Qn (S) <8.00 Normal [facility] Comment on above: Order Comment: Chitra mcgowan Type: BLOOD SPECIMENOrdering Facility: [facility] Address: [address] [place] [address] Result Comment: <8 m IU/mL: No serological evidence of immunity to Hepatitis B Virus. >/= 8 to <12 mIU/mL: No serological evidence of immunity to Hepatitis B Virus. >/= 12 mIU/mL: Consistent with serological evidence of immunity to Hepatitis B Virus. Performed By: #### 5 195-3, 64724-9, 71942-5, 36224-3 ####[facility] LABCLIA [id number] [place] [address] [place] HBV surface Ab Ser Qlon HBV surface Ab Ql (S) Negative Normal [facility] Comment on above: Order Comment: Speci men Type: BLOOD SPECIMENOrdering Facility: [facility] Address: [address] [place] [address] Result Comment: No s erological evidence of immunity to Hepatitis B Virus. Performed By: #### 5 195-3, 77702-2, 70604-1, 02030-9 ####[facility] LABCLIA [id number] [place] [address] [place] HBV surface Ag Ser Qlon HBV surface Ag Ql (S) Negative Normal Negative [facility] Comment on above: Order Comment: Speci men Type: BLOOD SPECIMENOrdering Facility: [facility] Address: [address] [place] [address] Performed By: #### 3 1201-7, 32308-5, 5195-3 ####[facility] LABCLIA [id number] [place] [address] [place] Performed By: #### 5 195-3, 73468-9, 68090-1, 81600-2 ####[facility] LABCLIA [id number] [place] [address] [place] HCV Ab Ser Qlon 12-28-2024 HCV Ab Ql (S) Negative Normal Negative [facility] Comment on above: Order Comment: Speci men Type: BLOOD SPECIMENOrdering Facility: [facility] Address: [address] [place] [address] Result Comment: The result suggests no evidence of active infection with Hepatitis C virus. Should recent infection be suspected, repeat testing may be considered 4-6 weeks after this draw. Performed By: #### 1 6128-1 ####[facility] LABCLIA [id number] [place] [address] [place] HCV RNA DRE+probe Qnon 12-28 HCV RNA DRE+probe Ql Not detected Normal Not detected [facility] Comment on above: Order Comment: Speci men Type: BLOOD SPECIMENOrdering Facility: [facility] Address: [address] [place] [address] Performed By: #### 1 1011-4 ####[facility] LABIA [id number] [place] [address] [place] HIV 1+2 Ab IA Qlon 5 HIV 1 and 2 Ab IA.rapid Nom (S/P/Bld) [facility] Comment on above: Test not indicated. HIV 1+2 Ab+HIV1 p24 Ag IA Ql Non-Reactive Nonreactive [facility] HIV immunoassay testing algorithm interpretation (S/P/Bld) [Interp] [facility] Comment on above: No evidence of HIV-1 or HIV-2 infection. Should recent infection be suspected, repeat testing may be considered 2-3 weeks after this draw. [place] Rev. Code 3701.243(E): This information has been disclosed to you from confidential records protected from disclosure by state law. You shall make no further disclosure of this information without the specific, written, and informed release of the individual to whom it pertains or as otherwise permitted by state law. A general authorization for the release of medical or other information is not sufficient for the purpose of the release of HIV test results or diagnoses. [facility] HIV 1 and 2 Ab IA.rapid Nom (S/P/Bld) Normal [facility] Comment on above: Order Comment: Speci men Type: BLOOD SPECIMENOrdering Facility: [facility] Address: [address] [place] [address] Result Comment: Test not indicated. Performed By: #### 3 1201-7, 83774-2, 5195-3 ####[facility] LABIA [id number] [place] [address] [place] HIV 1+2 Ab+HIV1 p24 Ag IA Ql Non-Reactive Normal Nonreactive [facility] Comment on above: Order Comment: Speci men Type: BLOOD SPECIMENOrdering Facility: [facility] Address: [address] [place] [address] Performed By: #### 3 1201-7, 26117-3, 5195-3 ####[facility] LABIA [id number] [place] [address] [place] HIV immunoassay testing algorithm interpretation (S/P/Bld) [Interp] Normal [facility] Comment on above: Order Comment: Speci men Type: BLOOD SPECIMENOrdering Facility: [facility] Address: [address] [place] [address] Result Comment: No e vidence of HIV-1 or HIV-2 infection. Should recent infection be suspected, repeat testing may be considered 2-3 weeks after this draw. [place] Rev. Code 3701.243(E): This information has been disclosed to you from confidential records protected from disclosure by state law. ???You shall make no further disclosure of this information without the specific, written, and informed release of the individual to whom it pertains or as otherwise permitted by state law. A general authorization for the release of medical or other information is not sufficient for the purpose of the release of HIV test results or diagnoses. Performed By: #### 3 1201-7, 24664-0, 5195-3 ####[facility] LABIA [id number] [place] [address] [place] HbA1c (Bld)on 12-28-2024 Average glucose Estimated from glycated hemoglobin (Bld) [Mass/Vol] 103 mg/dL Normal [facility] Comment on above: Order Comment: Speci men Type: BLOOD SPECIMENOrdering Facility: [facility] Address: [address] [place] [address] Result Comment: eAG: (Estimated average glucose) is a calculated value from HgbA1c and is account manager sales representative of the average blood glucose level in the last 2-3 month period. Performed By: #### 5 5454-3 ####[facility] LABIA [id number] [place] [address] [place] HbA1c (Bld) [Mass fraction] 5.2 % Normal 4.3-5.6 [facility] Comment on above: Order Comment: Speci men Type: BLOOD SPECIMENOrdering Facility: [facility] Address: [address] [place] [address] Result Comment: [place] Diabetes Association guidelines indicate that patients with HgbA1c in the range 5.7-6.4% are at increased risk for development of diabetes, and intervention by lifestyle modification may be beneficial. HgbA1c greater or equal to 6.5% is considered diagnostic of diabetes. Performed By: #### 5 5454-3 ####[facility] LABCLIA [id number] [place] [address] [place] Lipid 1996 panelon 5 Cholesterol [Mass/Vol] 107 mg/dL Normal <200 [facility] Comment on above: Order Comment: Speci men Type: BLOOD SPECIMENOrdering Facility: [facility] Address: [address] [place] [address] Result Comment: <200 mg/dL, Desirable 200-239 mg/dL, Borderline high >239 mg/dL, High Performed By: #### 2 4323-8, 88067-6 ####[facility] LABCLIA [id number] [place] [address] [place] Cholesterol in HDL [Mass/Vol] 37 mg/dL Low >39 [facility] Comment on above: Order Comment: Speci men Type: BLOOD SPECIMENOrdering Facility: [facility] Address: [address] [place] [address] Result Comment: 40-5 9 mg/dL, Acceptable >59 mg/dL, High: Negative risk factor for coronary heart disease <40 mg/dL, Low: Positive risk factor for coronary heart disease Performed By: #### 2 4323-8, 40584-9 ####[facility] LABCLIA [id number] [address] [place] Cholesterol in LDL [Mass/Vol] 45 mg/dL Normal <100 [facility] Comment on above: Order Comment: Speci men Type: BLOOD SPECIMENOrdering Facility: [facility] Address: [address] [place] [address] Result Comment: <100 mg/dL, Optimal 100-129 mg/dL, Near optimal/above optimal 130-159 mg/dL, Borderline high 160-189 mg/dL, High >189 mg/dL, Very high Secondary prevention optimal LDL Cholesterol levels are recommended to be < 70 mg/dL Performed By: #### 2 4323-8, 46110-0 ####[facility] LABCLIA [id number] [place] [address] [place] Cholesterol in LDL/Cholesterol in HDL [Mass ratio] 1.22 {ratio} Normal <2.54 [facility] Comment on above: Order Comment: Speci men Type: BLOOD SPECIMENOrdering Facility: [facility] Address: [address] [place] [address] Result Comment: Refe melquiadesce: 1. National Cholesterol Education Program ATP III Guideline At-A-Glance Quick Desk Reference: National Heart, Lung, and Blood [place]. National Institutes of Health. 2001: NIH Publication No. 01-3305. 2. An International Atherosclerosis Society position paper: global recommendations for the management of dyslipidemia: executive summary, Atherosclerosis. 2014: 232(2):410-413. Performed By: #### 2 4323-8, 88313-6 ####[facility] LABIA [id number] [place] [address] [place] Cholesterol in VLDL [Mass/Vol] 25 mg/dL Normal <30 [facility] Comment on above: Order Comment: Chitra mcgowan Type: BLOOD SPECIMENOrdering Facility: [facility] Address: [address] [place] [address] Performed By: #### 2 4323-8, 82803-6 ####[facility] LABIA [id number] [place] [address] [place] Cholesterol non HDL [Mass/Vol] 70 mg/dL Normal <130 [facility] Comment on above: Order Comment: Chitra men Type: BLOOD SPECIMENOrdering Facility: [facility] Address: [address] [place] [address] Result Comment: <130 mg/dL, Optimal 130-159 mg/dL, Near optimal/above optimal 160-189 mg/dL, Borderline high 190-219 mg/dL, High >219 mg/dL, Very high Secondary prevention optimal non HDL Cholesterol levels are recommended to be <100 mg/dL Performed By: #### 2 4323-8, 58908-1 ####[facility] LABCLIA [id number] [place] [address] [place] Cholesterol.total/ Cholesterol in HDL [Mass ratio] 2.89 {ratio} Normal <5.10 [facility] Comment on above: Order Comment: Speci men Type: BLOOD SPECIMENOrdering Facility: [facility] Address: [address] [place] [address] Performed By: #### 2 4323-8, 87640-2 ####[facility] LABCLIA [id number] [place] [address] [place] FASTING TIME 12 hrs Normal [facility] Comment on above: Order Comment: Speci men Type: BLOOD SPECIMENOrdering Facility: [facility] Address: [address] [place] [address] Performed By: #### 2 4323-8, ####[facility] LABCLIA [id number] [place] [address] [place] Triglyceride [Mass/Vol] 127 mg/dL Normal <150 [facility] Comment on above: Order Comment: Speci men Type: BLOOD SPECIMENOrdering Facility: [facility] Address: [address] [place] [address] Result Comment: <150 mg/dL, Normal 150-199 mg/dL, Borderline high 200-499 mg/dL, High >499 mg/dL, Very high Performed By: #### 2 4323-8, 69380-2 ####[facility] LABCLIA [id number] [place] [address] [place] NICOTINE/COTININEon 12-28-19 25 Cotinine [Mass/Vol] <2 Normal <2 [facility] Comment on above: Order Comment: Speci men Type: BLOOD SPECIMENOrdering Facility: [facility] Address: [address] [place] [address] Result Comment: Acti ve tobacco product user: Nicotine concentration: 30 - 50 ng/mL Cotinine concentration: 200 - 800 ng/mL Passive exposure to tobacco: Nicotine concentration: < 2 ng/mL Cotinine concentration: < 8 ng/mL Unexposed non-tobacco user or abstinent user for > 2 weeks: Nicotine concentration: < 2 ng/mL Cotinine concentration: < 2 ng/mL This test was developed, and its performance characteristics determined by the [facility] Department of Pathology and Laboratory Medicine. It has not been cleared or approved by the FDA. The [facility] Department of Pathology and Laboratory Medicine is regulated under CLIA as qualified to perform high-complexity testing. This test is used for clinical purposes. It should not be regarded as investigational or for research. Performed By: #### N ICOT ####[facility] LABCLIA [id number] [place] [address] [place] Nicotine [Mass/Vol] <2 Normal <2 [facility] Comment on above: Order Comment: Chitra mcgowan Type: BLOOD SPECIMENOrdering Facility: [facility] Address: [address] [place] [address] Performed By: #### N ICOT ####[facility] LABCLIA [id number] [place] [address] [place] No Panel Informationon 12-28 Interpretation and review of laboratory results Normal [facility] PT panel Coag (PPP)on 2024 INR Coag (PPP) [Relative time] 1.1 {INR} 0.9 - 1.3 [facility] Comment on above: Vitamin K Antagonist (VKA) Therapeutic Range: INR 2 to 3 (Target INR of 2.5) Note: For patients treated with VKA drugs, such as warfarin, the [place] [employer] 2012 Guideline recommends a therapeutic INR range of 2 to 3 (target INR of 2.5). This recommendation includes high-risk patients with antiphospholipid syndrome with previous arterial or venous thromboembolism, current-generation mechanical or bioprosthetic aortic heart valve replacement. Note: Patients with mechanical aortic valve replacement and additional risk factors for thromboembolic events (atrial fibrillation, previous thromboembolism, LV dysfunction, hypercoagulable conditions) or an older generation mechanical AVR (i.e., ball in-Cage) or any mechanical MVR should have a INR therapeutic range of 2.5 to 3.5 (target INR of 3). Jamir SINGLETARY et nathan. Chest 2012, 141:7S-47S Anjel PATINO et al. [facility] 2017, 70: 252-289 PT Coag (PPP) [Time] 11.4 s [facility] INR Coag (PPP) [Relative time] 1.1 {INR} Normal 0.9-1.3 [facility] Comment on above: Order Comment: Chitra mcgowan Type: BLOOD SPECIMENOrdering Facility: [facility] Address: [address] [place] [address] Result Comment: Delphine min K Antagonist (VKA) Therapeutic Range: INR 2 to 3 (Target INR of 2.5) Note: For patients treated with VKA drugs, such as warfarin, the [place] [employer] 2012 Guideline recommends a therapeutic INR range of 2 to 3 (target INR of 2.5). This recommendation includes high-risk patients with antiphospholipid syndrome with previous arterial or venous thromboembolism, current-generation mechanical or bioprosthetic aortic heart valve replacement. Note: Patients with mechanical aortic valve replacement and additional risk factors for thromboembolic events (atrial fibrillation, previous thromboembolism, LV dysfunction, hypercoagulable conditions) or an older generation mechanical AVR (i.e., ball in-Cage) or any mechanical MVR should have a INR therapeutic range of 2.5 to 3.5 (target INR of 3). Jamir SINGLETARY et al. Chest 2012, 141:7S-47S Anjel PATINO et al. [facility] 2017, 70: 252-289 Performed By: #### 3 4528-0, 81542-8 ####[facility] LABCLIA [id number] [address] [place] PT Coag (PPP) [Time] 11.4 s Normal 9.7-13.0 [facility] Comment on above: Order Comment: Chitar mcgowan Type: BLOOD SPECIMENOrdering Facility: [facility] Address: [address] [place] [address] Performed By: #### 3 4528-0, 32172-9 ####[facility] LABCLIA [id number] SURYDestinee [address] [address] [place] THC METABOLITE, SERUM,QUANTI TATIVEon 12-28-2024 40-NPC-5-CARBOXY-T HC <5 Normal [facility] Comment on above: Order Comment: Speci men Type: BLOOD SPECIMENOrdering Facility: [facility] Address: [address] [place] [address] Result Comment: INTE RPRETIVE INFORMATION: THC Metabolite, Serum or Plasma, Quantitative Methodology: Quantitative Liquid Chromatography-Tandem Mass Spectrometry. Positive cutoff: 5 ng/mL For medical purposes only; not valid for forensic use. The drug analyte detected in this assay, 9-carboxy THC, is a metabolite of crnfb-4-tmfvusxuxmuezuhpbmcp (THC). Detection of 9-carboxy THC suggests use of, or exposure to, a product containing THC. This test cannot distinguish between prescribed or non-prescribed forms of THC, nor can it distinguish between active or passive use. The plasma half-life for 9-carboxy THC metabolite is estimated to range from 4-12 hours. This test was developed and its performance characteristics determined by [facility]. It has not been cleared or approved by the US Food and Drug Administration. This test was performed in a CLIA certified laboratory and is intended for clinical purposes. Performed By: [facility] [address] [place] [address] Agricultural Aircraft Pilot: Earl Matthew MD, PhD CLIA Number: [id number] Performed By: #### T [facility] ####[facility] [id number] [place] [address] aPTT Coag (PPP) [Time]on Unfractionated Hepar in Therapeutic Ranges: Standard Heparin Nomogram: 53 to 78 seconds (anti-Xa level of 0.3 to 0.7 U/ml) Low Dose/ACS Nomogram: 49 to 67 seconds (anti-Xa level of 0.2 to 0.5 U/ml) Stroke Treatment Nomogram: 49 to 67 seconds (anti-Xa level of 0.2 to 0.5 U/ml) Note: The APTT therapeutic range has been determined for the current lot of laboratory APTT reagent in use throughout the [facility]. [facility] aPTT PPPon 12-28-2024 aPTT Coag (PPP) [Time] 27.1 s Normal 23.0-32.4 [facility] Comment on above: Order Comment: Speci men Type: BLOOD SPECIMENOrdering Facility: [facility] Address: [address] [place] [address] [place] [address] Performed By: #### 3 4528-0, 13693-4 ####[facility] LABCLIA [id number] [facility] [id number] CNOVon 12-08-2024 CNOV Office Visit (PLASMN ) WALLY BARROW ([id number]) 1945 M Date Time Provider Department 12/08/24 [...] was seen by a plastic surgeon in [place] and was approved for surgery but would like a second opinion. Patient has had multiple seborrheic keratosis that was treated by a semiconductor wafers etcher stripper with liquid nitrogen. Patient reports that he [...] Factor take 3 tablet once per day cx-vi-D-rola-herb no.310 (AIRBORNE EVERYDAY STRESS AWAY) 1,000 mg-200 [...] 02/05/2022 108/ (more content not included)... [facility] (PLASMN) WALLY BARROW ([id number]) 1945 M Date Time Provider Department 12/08/24 ANGELES DECKER During your visit today, we recorded the following information about you: Jl Laurent 12/08/2024 4:43 PM Signed Pt calling in and he said he spoke to his eye doctor and they do not do the test Dash test anymore because it is outdated. The recommended first inflammatory test, TBUT, Corneal staining pt would like to know what to do Allergies As of Date: 12/08/2024 Noted Allergy Reaction HYDROCODONE-ACETAMINOPHEN 12/08/2024 16 - Unknown LISINOPRIL 04/26/2017 3 - Cough OXYCODONE 06/10/2023 9 - Itching AMOXICILLIN 12/08/2024 6 - Diarrhea Date Reviewed: 12/08/2024 Reviewed by: Angeles Decker MD - Fully Assessed Reason for Visit: Patient Question [6937] Prescriptions as of 02/02/2025 - irbesartan (AVAPRO) 300 mg tablet Take 1 tablet by mouth daily at bedtime. - MULTIVITAMIN ORAL Take by mouth. - metoprolol succinate ER (TOPROL XL) 25 mg 24 hr tablet Take 1 tablet by mouth every evening. - furosemide (LASIX) 20 mg tablet Take 20 mg by mouth once daily. - simvastatin (ZOCOR) 20 mg tablet daily at bedtime. - iron bisgly,ps-FA-B-C#12-succ 65 mg-65 mg -1,000 mcg (24) tab Take 65 mg by mouth once weekly - aspirin, enteric coated (ASPIRIN, ENTERIC COATED) 81 mg EC tablet Take 81 mg by mouth once daily. - OTC PRODUCT once daily. OTC Force Factor take 3 tablet once per day - md-sd-M-theanine-herb no.310 (AIRBORNE EVERYDAY STRESS AWAY) 1,000 mg-200 mg-360 mg pwpk Take by mouth. - acetaminophen (TYLENOL) 325 mg tablet Take 650 mg by mouth as needed for pain. - sodium chloride (SALINE MIST NASAL) Use in the nose. - azithromycin (ZITHROMAX) 500 mg tablet Take 1 tablet by mouth once daily. Take one tablet 60 minutes prior to procedure. - olopatadine (PATADAY TWICE DAILY RELIEF) 0.1 [...] 100 % powd 1 teaspoonful twice daily. Problem List As Of Date 12/08/2024 Noted Resolved Palpitations [R00.2] 10/29/2016 Primary hypertension [...] right rotator cuff [*07/08/2023 Encounter Status:Closed by JL LAURENT on 02/02/25 [facility] CNOVon 12-01-2024 CNOV Office Visit (CARD P ) WALLY BARROW ([id number]) 1945 M Date Time Provider Department 12/01/24 9:30 AM ABEBA KEEN During your visit today, we recorded the following information about you: Pulse Blood pressure Weight Height 70/minute 148/95 83.9 kg 1.778 m Abeba Keen APRN.CATTLE TESTER 12/08/2024 5:19 PM Addendum [facility] [place] [facility] Bynum Department of Cardiovascular Medicine SECTION [...] Factor take 3 tablet once per day wk-ms-Q-theanine-herb no.310 (AIRBORNE EVERYDAY STRESS AWAY) 1,000 mg-200 [...] 26.54 kg/(m2 (more content not included)... Normal [facility] ECHOon 12-01-2024 CONCLUSIONS: - Exam indication: [...] [facility] Echocardiography Report: Transthoracic Echo [facility] J1-5 Date of service: 12/01/2024 3:49:55 PM PULLER Ordering physician: ABEBA KEEN Indication: AVR Technologist: Georgina Becker RD Fellow: Alessio Laboy MD Interpreting physician: Yosi Lambert MD PATIENT: Name: MR. WALLY BARROW : 1945 Age: 79 years Gender: M History of valvular heart disease. Previous cardiovascular interventions: Aortic valve replacement (2018) Aortic Root Replacement (2017) Ascending ao replacment #28 Gelweave graft (2000) [...] no pericardial effusion. [facility] Echocardiography Echocardiography Rep ort: Transthoracic Echo [facility] J1-5 Date of service: 12/01/2024 3:49:55 PM PULLER Ordering physician: ABEBA KEEN Indication: AVR Technologist: Georgina Kc and Elizabeth Becker [facility] Fellow: Alessio Laboy MD Interpreting physician: Yosi Lambert MD PATIENT: Name: MR. WALLY BARROW : 1945 Age: 79 years Gender: M History of valvular heart disease. Previous cardiovascular interventions: Aortic valve replacement (2018) Aortic Root Replacement (2017) Ascending ao replacment #28 Gelweave graft (2000) [...] estimated RVSP (more content not included)... Normal [facility] Ambulatory Visit Summaryon 0 08-14-2024 Ambulatory [...] you for choosing us for your care. [facility] 05-22-2024 [place] Telephone (CARD P) WALLY BARROW ([id number]) 1945 M Date Time Provider Department 05/22/24 ABEBA KEEN P During your visit today, we recorded the following information about you: Mio Zavala Indira 05/22/2024 3:55 PM Signed Pt calling to speak with Abeba, he asks that she please return his call when she gets in on Saturday. #:[phone] Abeba Keen APRN.CNP 05/26/2024 5:48 PM Signed Pt phoned regarding his . Spoke with Pt and documented in her chart. Abeba Keen APRN.CNP Allergies As of Date: 05/22/2024 Noted Allergy Reaction LISINOPRIL 04/26/2017 3 - Cough Date Reviewed: 07/08/2023 Reviewed by: Tonya Crouch OCCA - Fully Assessed Reason for Visit: Patient Question [6987] Prescriptions as of 05/26/2024 - irbesartan (AVAPRO) 300 mg tablet Take 1 tablet by mouth daily at bedtime. - hydroCHLOROthiazide 25 mg tablet Take 1 tablet by mouth once daily. - metoprolol succinate ER (TOPROL XL) 25 mg 24 hr tablet take 1 tablet by mouth every evening - iron bisgly,ps-FA-B-C#12-succ 65 mg-65 mg -1,000 mcg (24) tab Take 65 mg by mouth once weekly - aspirin, enteric coated (ASPIRIN, ENTERIC COATED) 81 mg EC tablet Take 81 mg by mouth once daily. - OTC PRODUCT once daily. OTC Force Factor take 3 tablet once per day - xc-jd-M-theanine-herb no.310 (AIRBORNE EVERYDAY STRESS AWAY) 1,000 mg-200 [...] Encounter Status:Closed by ABEBA KEEN on 05/26/24 [facility] CNOVon 02-11-2024 CNOV Office Visit (CARD P ) PUSHPAWALLY CARCAMO ([id number]) 1945 M Date Time Provider Department 02/11/24 9:00 AM ABEBA KEEN CARD P During your visit today, we recorded the following information about you: Pulse Blood pressure Weight 60/minute 128/80 89.5 kg Abeba Keen APRN.CATTLE TESTER 02/25/2024 12:19 PM Addendum [facility] [place] Beni Bynum Department of Cardiovascular Medicine SECTION [...] Factor take 3 tablet once per day [facility] (AIRBORNE EVERYDAY STRESS AWAY) [...] well ap (more content not included)... Normal [facility] EXERCISE STRESS ECG (WITHOUT IMAGING)on 02-08-2023 [facility] Basic metabolic 2000 panelon 02-06-2023 Anion gap [Moles/Vol] 11 mmol/L 9 - 18 mmol/L [facility] Calcium [Mass/Vol] 9.8 mg/dL 8.5 - 10. 2 mg/dL [facility] Chloride [Moles/Vol] 107 mmol/L High 97 - 105 mmol/L [facility] CO2 [Moles/Vol] 25 mmol/L 22 - 30 mmol/L [facility] Creatinine [Mass/Vol] 1.43 mg/dL High 0.73 - 1.22 mg/dL [facility] Estimated Glomerular Filtration Rate 51 mL/min/1.73m Low >=60 mL/min/1.73m [facility] Glucose [Mass/Vol] 93 mg/dL 74 - 99 mg/dL [facility] Potassium [Moles/Vol] 3.7 mmol/L 3.7 - 5.1 mmol/L [facility] Sodium [Moles/Vol] 143 mmol/L 136 - 144 mmol/L [facility] Urea nitrogen [Mass/Vol] 20 mg/dL 9 - 24 mg/dL [facility] CBC panel Auto (Bld)on 02-06 Erythrocyte distribution width (RBC) [Ratio] 14.1 % 11.5 - 15.0 % [facility] Hematocrit (Bld) [Volume fraction] 46.7 % 39.0 - 51.0 % [facility] Hemoglobin (Bld) [Mass/Vol] 15.2 g/dL 13.0 - 17.0 g/dL [facility] MCH (RBC) [Entitic mass] 29.0 pg 26.0 - 34.0 pg [facility] MCHC (RBC) [Mass/Vol] 32.5 g/dL 30.5 - 36.0 g/dL [facility] MCV (RBC) [Entitic vol] 89.1 fL 80.0 - 100.0 fL [facility] Nucleated RBC (Bld) [#/Vol] <0.01 k/uL [facility] Platelet mean volume (Bld) [Entitic vol] 11.0 fL 9.0 - 12.7 fL [facility] Platelets (Bld) [#/Vol] 152 10*3/uL 150 - 400 k/uL [facility] RBC (Bld) [#/Vol] 5.24 10*6/uL 4.20 - 6.0 0 m/uL [facility] WBC (Bld) [#/Vol] 7.89 10*3/uL 3.70 - 11. 00 k/uL [facility] NM CARDIAC PERF STRESS/PHARM on 01-11-2023 [facility] CHEMISTRYOrdered By: SYSTEM SYSTEM on 01-07-2023 Creatinine [Mass/Vol] 1.2 mg/dL Normal 0.5 - 1.3 mg/dL [facility] Remisol GFR/1.73 sq M.predicted among blacks MDRD (S/P/Bld) [Vol rate/Area] mL/min/1.73 m2 Normal >=59mL/min/1. 73 m2 [facility] Chem S GFR/1.73 sq M.predicted among non-blacks MDRD (S/P/Bld) [Vol rate/Area] 59 mL/min/1.73 m2 Normal >=59mL/min/1. 73 m2 [facility] Chem S CHEMISTRYOrdered By: SYSTEM SYSTEM on 05-18-2022 Creatinine [Mass/Vol] 1.2 mg/dL Normal 0.5 - 1.3 mg/dL [facility] Remisol GFR/1.73 sq M.predicted among blacks MDRD (S/P/Bld) [Vol rate/Area] mL/min/1.73 m2 Normal >=59mL/min/1. 73 m2 [facility] Chem S GFR/1.73 sq M.predicted among non-blacks MDRD (S/P/Bld) [Vol rate/Area] 59 mL/min/1.73 m2 Normal >=59mL/min/1. 73 m2 [facility] Chem S NM CARDIAC PERF STRESS/EXERC ISEon 04-11-2022 [facility] Large Joint Arthro/Inj: R sh oulder joint [facility] Vital Signs Date Time Vital Sign Value Performing Clinician Facility 12-01-2024 10:25-0500 Body height 177.8 cm Abeba Osmani REVERSE LOGISTICS ANALYST.CATTLE TESTER Work Phone: [facility] 12-01-2024 10:25-0500 Body mass index (BMI) [Ratio] 26.54 kg/m2 Abebaapril Keen REVERSE LOGISTICS ANALYST.CATTLE TESTER Work Phone: [facility] 12-01-2024 10:25-0500 Body weight 83.92 kg Abeba Keen REVERSE LOGISTICS ANALYST.CATTLE TESTER Work Phone: [facility] 12-01-2024 10:25-0500 Diastolic blood pressure 95 mm[Hg] Abeba Keen REVERSE LOGISTICS ANALYST.CATTLE TESTER Work Phone: [facility] 12-01-2024 10:25-0500 Heart rate 70 /min Abebaapril Keen REVERSE LOGISTICS ANALYST.CATTLE TESTER Work Phone: [facility] 12-01-2024 10:25-0500 SaO2% (BldA) [Mass fraction] 95 % Abebaapril Keen REVERSE LOGISTICS ANALYST.CATTLE TESTER Work Phone: [facility] 12-01-2024 10:25-0500 Systolic blood pressure 148 mm[Hg] Abeba Alstonarns REVERSE LOGISTICS ANALYST.CATTLE TESTER Work Phone: [facility] 08-14-2024 14:11-0400 Blood Pressure Location Sarah SNIDER [facility] [place] 08-14-2024 14:11-0400 Diastolic blood pressure 85 mm[Hg] Sarah SNIDER [facility] [place] 08-14-2024 14:11-0400 Heart rate 76 /min Sarah GAONAL [facility] [place] 08-14-2024 14:11-0400 Respiratory rate 16 /min Sarah GAONAL [facility] [place] 08-14-2024 14:11-0400 Systolic blood pressure 151 mm[Hg] Sarah NILL [facility] [place] 02-11-2024 09:35-0400 Body weight 89.5 kg Abeba Osmani REVERSE LOGISTICS ANALYST.CATTLE TESTER Work Phone: [facility] 02-11-2024 09:35-0400 Diastolic blood pressure 80 mm[Hg] Abeba Osmani REVERSE LOGISTICS ANALYST.CATTLE TESTER Work Phone: [facility] 02-11-2024 09:35-0400 Heart rate 60 /min Abeba Osmani REVERSE LOGISTICS ANALYST.CATTLE TESTER Work Phone: [facility] 02-11-2024 09:35-0400 Systolic blood pressure 128 mm[Hg] Abeba [place] REVERSE LOGISTICS ANALYST.CATTLE TESTER Work Phone: [facility] 08-13-2023 11:50-0400 Diastolic blood pressure 85 mm[Hg] Abeba [place] REVERSE LOGISTICS ANALYST.CATTLE TESTER Work Phone: [facility] 08-13-2023 11:50-0400 Systolic blood pressure 132 mm[Hg] Abeba Osmani REVERSE LOGISTICS ANALYST.CATTLE TESTER Work Phone: [facility] 08-13-2023 11:39-0400 Body weight 84.87 kg Abeba [place] REVERSE LOGISTICS ANALYST.CATTLE TESTER Work Phone: [facility] 08-13-2023 11:39-0400 Heart rate 60 /min Abeba [place] REVERSE LOGISTICS ANALYST.CATTLE TESTER Work Phone: [facility] 07-08-2023 10:21-0400 Body height 177.8 cm Prabhakar iVlla MD Work Phone: [facility] 07-08-2023 10:21-0400 Body weight 82.1 kg Prabhakar Villa MD Work Phone: [facility] 02-08-2023 10:54-0400 Body height 177.8 cm [facility] Work Phone: [facility] 02-08-2023 10:54-0400 Body weight 83.46 kg [facility] Work Phone: [facility] 02-08-2023 10:54-0400 Diastolic blood pressure 84 mm[Hg] [facility] Work Phone: [facility] 02-08-2023 10:54-0400 Heart rate 66 /min [facility] Work Phone: [facility] 02-08-2023 10:54-0400 Systolic blood pressure 132 mm[Hg] [facility] Work Phone: [facility] 02-06-2023 16:08-0400 Body height 177.8 cm Juan F Portillo MD Work Phone: [facility] 02-06-2023 16:08-0400 Body weight 83.46 kg Juan F Portillo MD Work Phone: [facility] 02-06-2023 16:08-0400 Diastolic blood pressure 84 mm[Hg] Juan F Portillo MD Work Phone: [facility] 02-06-2023 16:08-0400 Heart rate 70 /min Juan F Portillo MD Work Phone: [facility] 02-06-2023 16:08-0400 Systolic blood pressure 123 mm[Hg] Juan F Portillo MD Work Phone: [facility] 01-11-2023 13:33-0500 Diastolic blood pressure 64 mm[Hg] Abeba Keen APRN.CNP Work Phone: [facility] 01-11-2023 13:33-0500 Systolic blood pressure 110 mm[Hg] Abeba Keen REVERSE LOGISTICS ANALYST.CATTLE TESTER Work Phone: [facility] 01-11-2023 13:23-0500 Body weight 84.01 kg Abeba Stoutns REVERSE LOGISTICS ANALYST.CATTLE TESTER Work Phone: [facility] 01-11-2023 13:23-0500 Heart rate 78 /min Abeba Keen REVERSE LOGISTICS ANALYST.CATTLE TESTER Work Phone: [facility] 08-15-2022 11:02-0400 Body height 177.8 cm Juan F Portillo MD Work Phone: [facility] 08-15-2022 11:02-0400 Body weight 82.56 kg Juan F Portillo MD Work Phone: [facility] 08-15-2022 11:02-0400 Diastolic blood pressure 72 mm[Hg] Juan F Portillo MD Work Phone: [facility] 08-15-2022 11:02-0400 Heart rate 65 /min Juan F Portillo MD Work Phone: [facility] 08-15-2022 11:02-0400 Systolic blood pressure 114 mm[Hg] Juan F Portillo MD Work Phone: [facility] 02-19-2022 11:25-0400 Diastolic blood pressure 92 mm[Hg] Tyler SALAM [facility] 02-19-2022 11:25-0400 Heart rate 47 /min Tyler SALAM [facility] 02-19-2022 11:25-0400 Respiratory rate 18 /min Tyler SALAM [facility] 02-19-2022 11:25-0400 SaO2% (BldA) [Mass fraction] 99 % Tyler SALAM [facility] 02-19-2022 11:25-0400 Systolic blood pressure 128 mm[Hg] Tyler SALAM [facility] 02-19-2022 11:15-0400 Diastolic blood pressure 92 mm[Hg] Tyler SALAM [facility] 02-19-2022 11:15-0400 Heart rate 46 /min Tyler SALAM [facility] 02-19-2022 11:15-0400 Respiratory rate 15 /min Tyler SALAM [facility] 02-19-2022 11:15-0400 SaO2% (BldA) [Mass fraction] 98 % Tyler SALAM [facility] 02-19-2022 11:15-0400 Systolic blood pressure 128 mm[Hg] Tyler SALAM [facility] 02-19-2022 11:00-0400 Diastolic blood pressure 78 mm[Hg] Tyler SALAM [facility] 02-19-2022 11:00-0400 Heart rate 51 /min Tyler SALAM [facility] 02-19-2022 11:00-0400 Respiratory rate 20 /min Tyler SALAM [facility] 02-19-2022 11:00-0400 SaO2% (BldA) [Mass fraction] 97 % Tyler SALAM [facility] 02-19-2022 11:00-0400 Systolic blood pressure 122 mm[Hg] Tyler SALAM [facility] 02-19-2022 10:46-0400 Body temperature 97.16 [degF] Tyler SALAM [facility] 02-19-2022 10:14-0400 Blood Pressure Location Tyler SALAM [facility] 02-19-2022 10:14-0400 Body temperature 98.06 [degF] Jayson ADDISON [facility] Encounters Encounter Date Encounter Type Care Provider Facility Start: 01-25-2025 End: 01-25-2025 ambulatory BENJA DAILEY Not Available Start: 01-25-2025 End: 01-25-2025 Bamboo flowsheet Benja Dailey DPM Work Phone: [facility] Start: 01-25-2025 End: 01-25-2025 Bamboo flowsheet Benja Dailey DPM Work Phone: [facility] Start: 01-05-2025 End: 01-06-2025 Refill Abeba Keen REVERSE LOGISTICS ANALYST.CATTLE TESTER Work Phone: [facility] Comment on above: Refill Request Start: 12-28-2024 End: 12-28-2024 Telephone encounter Sarah Huitron OD Work Phone: Ophthalmology Comment on above: Orders Start: 12-28-2024 End: 12-28-2024 ambulatory ABEBA KEEN Facility:[facility] Start: 12-28-2024 End: 12-28-2024 Patient encounter procedure Angeles Prince MD Work Phone: Plastic Surgery Comment on above: Brow ptosis, bilater al (Primary Dx); Abnormal finding of blood chemistry, unspecified; Encounter for therapeutic drug level monitoring; Abnormal coagulation profile; Encounter for screening for human immunodeficiency virus (HIV) Start: 12-28-2024 End: 12-28-2024 ambulatory ANGELES PRINCE Facility:[facility] Start: 12-22-2024 End: 12-22-2024 ambulatory SARAH HUITRON Facility:[facility] Start: 12-22-2024 End: 12-22-2024 Patient encounter procedure Sarah Huitron OD Work Phone: Ophthalmology Comment on above: Dry eye (Primary Dx) ; Meibomian gland dysfunction (MGD) of upper and lower lids of both eyes; Dermatochalasis of both upper eyelids; Pseudophakia Start: 12-08-2024 End: 12-28-2024 Chart abstracting Angeles Prince MD Work Phone: Plastic Surgery Comment on above: PHOTOS TAKEN Start: 12-08-2024 End: 02-02-2025 Telephone encounter Angeles Prince MD Work Phone: Plastic Surgery Comment on above: Patient Question Start: 12-08-2024 End: 12-08-2024 ambulatory ANGELES PRINCE Facility:[facility] Start: 12-01-2024 End: 12-01-2024 ambulatory ABEBA KEEN Facility:[facility] Start: 12-01-2024 End: 12-01-2024 ambulatory ABEBA OSMANI Facility:[facility] Start: 12-01-2024 End: 12-01-2024 Patient encounter procedure Abeba Keen APRN.CATTLE TESTER Work Phone: Preventive Cardiology Comment on above: Essential hypertensi on (Primary Dx); Hyperlipidemia, unspecified hyperlipidemia type; S/P AVR Start: 08-14-2024 End: 08-14-2024 ambulatory Sarah Chatman AGATHA Facility:[facility] Start: 08-14-2024 End: 08-14-2024 Patient encounter procedure Sarah Lurdes AGATHA [facility] Start: 08-07-2024 ambulatory Sarah GAONAHellen Facility:[facility] Start: 05-22-2024 Telephone encounter Abeba reynolds REVERSE LOGISTICS ANALYST.CATTLE TESTER Work Phone: Preventive Cardiology Comment on above: Patient Question Start: 02-11-2024 End: 02-11-2024 ambulatory ABEBA KEEN Facility:[facility] Start: 02-11-2024 End: 02-11-2024 Patient encounter procedure Abeba Keen REVERSE LOGISTICS ANALYST.CATTLE TESTER Work Phone: Preventive Cardiology Comment on above: Hyperlipidemia, unsp ecified hyperlipidemia type (Primary Dx); Essential hypertension; S/P AVR Start: 11-11-2023 Refill Juan F Portillo MD Work Phone: [facility]iology Comment on above: Refill Request Start: 08-19-2023 Refill Juan F Portillo MD Work Phone: Preventive Cardiology Comment on above: Refill Request Start: 08-13-2023 End: 08-13-2023 Patient encounter procedure Abeba Alstonarns REVERSE LOGISTICS ANALYST.CATTLE TESTER Work Phone: Preventive Cardiology Comment on above: Hyperlipidemia, unsp ecified hyperlipidemia type (Primary Dx); Essential hypertension; S/P AVR Start: 07-15-2023 Refill Joyce apple REVERSE LOGISTICS ANALYST.CATTLE TESTER Work Phone: Preventive Cardiology Comment on above: [...] End: 03-28-2023 Patient encounter procedure Onel Isaacs [facility] Start: 03-12-2023 Telephone encounter Juan F emerson MD Work Phone: Preventive Cardiology Comment on above: Patient Question (An y additional testing?) Start: 02-08-2023 End: 02-08-2023 Patient encounter procedure Hannah Taylor REVERSE LOGISTICS ANALYST.CATTLE TESTER Work Phone: Preventive Cardiology Comment on above: [...] End: 01-11-2023 Patient encounter procedure Abeba Keen APRN.CATTLE TESTER Work Phone: Preventive Cardiology Comment on above: [...] End: 01-07-2023 Patient encounter procedure Onel Isaacs [facility] Start: 12-28-2022 Telephone encounter Hvi Thorac ic Surg Consult Thoracic [facility] Comment on above: Consult (Self referr ing); Received Outside Medical Records Start: 12-27-2022 Telephone encounter Onel Isaacs MD Work Phone: NOC Comment on above: Appointment Start: 11-12-2022 Refill Juan F Portillo MD Work Phone: [facility]iology Comment on above: Refill Request Start: 10-11-2022 Refill Clarisse GarzaCATTLE TESTER Work Phone: Preventive Cardiology Comment on above: [...] End: 05-18-2022 Patient encounter procedure Onel Isaacs [facility] Start: 04-11-2022 End: 04-11-2022 Subsequent hospital visit by physician Card Injection Molecular Imaging Comment on above: Precordial pain [R07 .2] Start: 03-27-2022 Orders Only Todd Donald i, MD Work Phone: Cardiology Comment on above: Precordial pain (Christin iban Dx) Start: 03-20-2022 Refill Hannah obrien APRN.CATTLE TESTER Work Phone: [facility]iology Comment on above: Refill Request Start: 02-19-2022 End: 02-19-2022 Patient encounter procedure Jayson ADDISON [facility] Start: 08-11-2018 End: 08-15-2018 Patient encounter status Abeba Keen APRN.CATTLE TESTER Work Phone: [facility] Work Phone: Procedures Date Procedure Procedure Detail Performing Clinician Start: 07-08-2023 History of repair of musculotendinous cuff of shoulder S/P right rotator cuff repair Prabhakar Villa MD Work Phone: Start: 07-08-2023 Arthrocentesis aspir&/inj major jt/bursa w/o us Prabhakar Villa MD Work Phone: Start: 02-08-2023 Cv strs tst xers&/or rx cont ecg trcg only Hannah Taylor APRN.CATTLE TESTER Work Phone: Start: 01-11-2023 Myocardial spect multiple studies Todd Nunn MD Work Phone: Start: 04-11-2022 Myocardial spect multiple studies Todd Nunn MD Work Phone: Start: 02-19-2022 Colonoscopy Tyler SALAM Comment on above: 2 colon polyps, diverticulosis t/o colon , moderate IH Start: 02-23-2018 Esophagogastroduodenoscopy Sarah NILL Start: 01-09-2017 Adult depression screening assessment Hannah Taylor APRN.CATTLE TESTER Work Phone: Start: 11-25-2014 Colonoscopy Tyler SALAM Start: 09-25-2014 Esophagogastroduodenoscopy Sarah NILL Start: 07-26-2014 Esophagogastroduodenoscopy Sarah NILL Start: 06-25-2014 Esophagogastroduodenoscopy Sarah NILL Start: 11-25-2004 thumb arthritis, right Tyler SALAM Start: 11-25-1957 Tonsillectomy Tyler SALAM Aortic valve structu re (body structure) Onel Hoy Cataract extraction and insertion of intraocular lens Tyler SALAM Comment on above: BILATERAL cholecystecomy/umbil ical hernia surgery 3 Tyler SALAM Comment on above: 2005 left rotator cuff repair 1-2-14 Tyler SALAM Parotidectomy Sarah NILL right hand/wrist surgery Zach er SALAM right knee surgery Tyler CATALINA AM right rotator cuff repair Owen duncan SALAM sinus surgery Tyler SALAM Plan of Treatment Date Care Activity Detail Author Start: 08-12-2030 Urine microalbumin profile [facility] Start: 12-28-2027 Diabetes Screening Diabetes Screening [facility] Start: 08-10-2027 LIPID SCREEN LIPID SCREEN [facility] Start: 02-04-2027 Diabetes Screening Diabetes Screening [facility] Start: 05-24-2026 LIPID SCREEN LIPID SCREEN [facility] Start: 04-05-2026 DIABETES SCREEN DIABETES SCREEN [facility] Start: 04-05-2026 Diabetes Screening Diabetes Screening [facility] Start: 02-06-2026 DIABETES SCREEN DIABETES SCREEN [facility] Start: 08-10-2025 DIABETES SCREEN DIABETES SCREEN [facility] Start: 05-14-2025 Covid-19 Vaccine () Covid-19 Vaccine () [facility] Start: 03-24-2025 End: 03-24-2025 Patient encounter procedure 03/24/2025 11:00 AM EDT Office Visit [facility] Cardiology [address] [place] [address] Abeba Keen, ISIDRO.CATTLE TESTER [address] [place] [address] 3 month follow up [facility] Comment on above: 3 month follow up Start: 01-17-2025 Subsequent hospital visit by physician 01/17/2025 Hospital Encounter [facility] [address] [address] Angeles Decker MD [address] [place] [address] Brow ptosis, 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], Dermatochalasis of both upper eyelids [H02.831, H02.834] [facility] Center Comment on above: Brow ptosis, 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], Dermat ochalasis of both upper eyelids [H02.831, H02.834] Start: 12-28-2024 End: 12-28-2025 Comprehensive metabolic 2000 panel - Serum or Plasma [facility] Work Phone: Comment on above: Expected: 12/28/2024 (Approximate), Expi res: 12/28/2025 Start: 12-28-2024 End: 12-28-2025 Hemoglobin A1c in Blood [facility] Comment on above: Expected: 12/28/2024 (Approximate), Expi res: 12/28/2025 Start: 12-28-2024 End: 12-28-2025 HEP ACUTE PANEL/RNA [facility] Comment on above: Expected: 12/28/2024 (Approximate), Expi res: 12/28/2025 Start: 12-28-2024 End: 12-28-2025 NICOTINE/COTININE [facility] Comment on above: Expected: 12/28/2024 (Approximate), Expi res: 12/28/2025 Start: 12-28-2024 End: 03-29-2025 THC METABOLITE, SERUM,QUANTITATIVE [facility] Comment on above: Expected: 12/28/2024, Expires: Start: 12-28-2024 End: 12-28-2024 Patient encounter procedure 12/28/2024 11:15 AM EST Office Visit Plastic Surgery [address] [id number] Angeles Decker MD [address] [place] [address] discuss surgery Plastic Surgery Comment on above: discuss surgery Start: 12-08-2024 End: 12-08-2024 Patient encounter procedure 12/08/2024 11:00 AM EST Office Visit Plastic Surgery [address] [address] Angeles Decker MD [address] [place] [address] consult for blepharloplasty and eyebrow Plastic Surgery Comment on above: consult for blepharloplasty and eyebrow Start: 12-01-2024 End: 03-02-2025 Alanine aminotransferase [Enzymatic activity/volume] in Serum or Plasma ALANINE AMINOTRANSFERASE / SGPT Lab Routine Essential hypertension Hyperlipidemia, unspecified hyperlipidemia type S/P AVR Expected: 12/01/2024, Expires: 03/02/2025 [facility] Comment on above: Expected: 12/01/2024, Expires: Start: 12-01-2024 End: 03-02-2025 Basic metabolic 2000 panel - Serum or Plasma BASIC METABOLIC PANEL Lab Routine Essential hypertension Hyperlipidemia, unspecified hyperlipidemia type S/P AVR Expected: 12/01/2024, Expires: 03/02/2025 [facility] Comment on above: Expected: 12/01/2024, Expires: Start: 12-01-2024 End: 03-02-2025 Lipid 1996 panel - Serum or Plasma LIPID PANEL BASIC Lab Routine Essential hypertension Hyperlipidemia, unspecified hyperlipidemia type S/P AVR Expected: 12/01/2024, Expires: 03/02/2025 [facility] Work Phone: Comment on above: Expected: 12/01/2024, Expires: Start: 11-25-2024 Advance Directive Discussion Advance Directive Discussion [facility] Start: 08-19-2024 End: 08-19-2024 Patient encounter procedure 08/19/2024 11:00 AM EDT Office Visit [facility]iology [address] [place] [address] Abeba Keen, ISIDRO.CATTLE TESTER [address] [place] [address] 6 month f/u per pt [facility] Comment on above: 6 month f/u per pt Start: 07-26-2024 [facility] Start: 05-24-2024 DIABETES SCREEN DIABETES SCREEN [facility] Start: 01-24-2024 End: 03-25-2024 Alanine aminotransferase [Enzymatic activity/volume] in Serum or Plasma ALT/SGPT Lab Routine Hyperlipidemia, unspecified hyperlipidemia type Essential hypertension Expected: 01/24/2024, Expires: 03/25/2024 [facility] Work Phone: Comment on above: Expected: 01/24/2024, Expires: Start: 01-24-2024 End: 03-25-2024 Basic metabolic 2000 panel - Serum or Plasma BASIC METABOLIC PNL Lab Routine Hyperlipidemia, unspecified hyperlipidemia type Essential hypertension Expected: 01/24/2024, Expires: 03/25/2024 [facility] Work Phone: Comment on above: Expected: 01/24/2024, Expires: Start: 01-24-2024 End: 03-25-2024 Lipid 1996 panel - Serum or Plasma LIPID PANEL BASIC Lab Routine Hyperlipidemia, unspecified hyperlipidemia type Essential hypertension Expected: 01/24/2024, Expires: 03/25/2024 [facility] Work Phone: Comment on above: Expected: 01/24/2024, Expires: Start: 01-11-2024 BP CONTROLLED (<130/80) BP CONTROLLED (<130/80) [facility] Start: 01-04-2024 Covid-19 Vaccine () Covid-19 Vaccine () [facility] Start: 11-25-2023 Advance Directive Discussion Advance Directive Discussion [facility] Start: 11-25-2023 Behavioral Health Screening Behavioral Health Screening [facility] Start: 11-25-2023 Depression Assessment Depression Assessment [facility] Start: 08-15-2023 BP CONTROLLED (<130/80) BP CONTROLLED (<130/80) [facility] Start: 07-26-2023 Covid-19 Vaccine () Covid-19 Vaccine () [facility] Start: 07-26-2023 Influenza vaccination [facility] Start: 03-13-2023 End: 05-13-2023 Comprehensive metabolic 2000 panel - Serum or Plasma COMP METABOLIC PANEL Lab Routine Hyperlipidemia, unspecified hyperlipidemia type Expected: 03/13/2023, Expires: 05/13/2023 [facility] Work Phone: Comment on above: Expected: 03/13/2023, Expires: Start: 03-13-2023 End: 05-13-2023 Lipid 1996 panel - Serum or Plasma LIPID PANEL BASIC Lab Routine Hyperlipidemia, unspecified hyperlipidemia type Expected: 03/13/2023, Expires: 05/13/2023 [facility] Work Phone: Comment on above: Expected: 03/13/2023, Expires: 3 Start: 02-21-2023 End: 04-23-2023 Basic metabolic 2000 panel - Serum or Plasma BASIC METABOLIC PNL Lab Routine Elevated serum creatinine Expected: 02/21/2023, Expires: 04/23/2023 [facility] Work Phone: Comment on above: Expected: 02/21/2023, Expires: 3 Start: 02-12-2023 End: 04-14-2023 Comprehensive metabolic 2000 panel - Serum or Plasma COMP METABOLIC PANEL Lab Routine S/P AVR Expected: 02/12/2023, Expires: 04/14/2023 [facility] Work Phone: Comment on above: Expected: 02/12/2023, Expires: 3 Start: 02-12-2023 End: 04-14-2023 Lipid 1996 panel - Serum or Plasma LIPID PANEL BASIC Lab Routine S/P AVR Essential (primary) hypertension Expected: 02/12/2023, Expires: 04/14/2023 [facility] Work Phone: Comment on above: Expected: 02/12/2023, Expires: 3 Start: 02-05-2023 BP CONTROLLED (<130/80) BP CONTROLLED (<130/80) [facility] Start: 11-25-2022 ADVANCE DIRECTIVE DISCUSSION ADVANCE DIRECTIVE DISCUSSION [facility] Start: 11-25-2022 DEPRESSION ASSESSMENT DEPRESSION ASSESSMENT [facility] Start: 07-26-2022 Influenza vaccination INFLUENZA (#1) [facility] Start: 05-03-2022 COVID-19 VACCINE (5 - Booster for Pfizer series) COVID-19 VACCINE (5 - Booster for Pfizer series) [facility] Start: 04-11-2022 End: 04-26-2023 NM CARDIAC PERF STRESS/EXERCISE NM CARDIAC PERF STRESS/EXERCISE Radiology Routine Precordial pain Expected: 04/11/2022, Expires: 04/26/2023 [facility] Work Phone: Comment on above: Expected: 04/11/2022, Expires: 3 Start: 11-25-2021 ADVANCE DIRECTIVE DISCUSSION ADVANCE DIRECTIVE DISCUSSION [facility] Start: 11-25-2021 DEPRESSION ASSESSMENT DEPRESSION ASSESSMENT [facility] Start: 09-16-2020 SHINGRIX VACCINE (2 of 2) SHINGRIX VACCINE (2 of 2) [facility] Start: 06-10-2018 Pneumococcal Vaccine: 65+ (2 - PPSV23 or PCV20) Pneumococcal Vaccine: 65+ (2 - PPSV23 or PCV20) [facility] Start: 06-10-2018 PNEUMOCOCCAL: 65+ (2 - PPSV23 if available, else PCV20) PNEUMOCOCCAL: 65+ (2 - PPSV23 if available, else PCV20) [facility] Start: 06-10-2018 PNEUMOCOCCAL: 65+ (2 - PPSV23 or PCV20) PNEUMOCOCCAL: 65+ (2 - PPSV23 or PCV20) [facility] Start: 01-09-2018 Adult depression screening assessment DEPRESSION SCREENING [facility] Start: 2011 PNEUMOVAX AGE 65 AND OVER WITH 5YR LOOKBACK (#1) PNEUMOVAX AGE 65 AND OVER WITH 5YR LOOKBACK (#1) [facility] Start: 1991 COLOGUARD (FIT-DNA) COLOGUARD (FIT-DNA) [facility] Start: 1991 Colonoscopy COLONOSCOPY [facility] Start: 1991 COLORECTAL CANCER SCREENING COLORECTAL CANCER SCREENING [facility] Start: [address] COLONOGRAPHY [facility] Start: 1991 FECAL OCCULT BLOOD FECAL OCCULT BLOOD [facility] Start: 1991 SIGMOIDOSCOPY SIGMOIDOSCOPY [facility] Start: 1964 ANNUAL PCP TEAM CHRONIC DISEASE VISIT ANNUAL PCP TEAM CHRONIC DISEASE VISIT [facility] Start: 1964 Anxiety Screening Anxiety Screening [facility] Start: 1964 BP CONTROLLED (<130/80) BP CONTROLLED (<130/80) [facility] Start: 1964 Depression Screening Depression Screening [facility] Start: 1964 HEPATITIS C SCREENING HEPATITIS C SCREENING [facility] Start: 1964 Hepatitis C screening Hepatitis C Screening [facility] Blepharoplasty upper eyelid BLEPHAROPLASTY UPPER BILATERAL Brow ptosis, bilateral Dermatochalasis of both upper eyelids [facility] A60 End: 01-08-2024 ECG COMPLETE ECG COMPLETE ECG Routine Chest pain, unspecified type 1 Occurrences starting 01/08/2023 until 01/08/2024 [facility] Work Phone: Comment on above: 1 Occurrences starting 01/08/2023 until 01/08/2024 End: 08-15-2023 Echocardiography ECHO Cardiology Routine S/P AVR 1 Occurrences starting 08/15/2022 until 08/15/2023 [facility] Work Phone: Comment on above: 1 Occurrences starting 08/15/2022 until 08/15/2023 End: 03-13-2024 Echocardiography ECHO Cardiology Routine S/P ascending aortic replacement Nonrheumatic aortic valve insufficiency 1 Occurrences starting 03/13/2023 until 03/13/2024 [facility] Work Phone: Comment on above: 1 Occurrences starting 03/13/2023 until 03/13/2024 NM CARDIAC PERF STRESS/PHARM NM CARDIAC PERF STRESS/PHARM Radiology Routine Chest pain, unspecified type Ordered: 01/08/2023 [facility] Work Phone: Comment on above: Ordered: 01/08/2023 Rhytidectomy glabell ar frown lines BROWLIFT Brow ptosis, bilateral Dermatochalasis of both upper eyelids PLASTICS A60 [facility] Immunizations Immunization Date Immunization Notes Care Provider Jonathon junior 08-15-2023 influenza virus vacc ine, unspecified formulation Abeba Keen REVERSE LOGISTICS ANALYST.CATTLE TESTER Work Phone: [facility] 09-11-2022 influenza virus vacc ine, unspecified formulation Onel Isaacs [facility] 09-11-2022 SARS-CoV-2 (COVID-19 ) [id number] On[address] Richardsony [facility] 03-08-2022 SARS-CoV-2 (COVID-19 ) mRNA-[address] [facility] 10-13-2021 SARS-CoV-2 (COVID-19 ) mRNA-[address] [facility] 09-28-2021 influenza virus vacc ine, unspecified formulation Onel Hoy [facility] 08-25-2021 influenza virus vacc ine, unspecified formulation Tyler SALAM [facility] 02-10-2021 SARS-CoV-2 (COVID-19 ) mRNA BNT-162b2 vax Onel Hoy [facility] 01-20-2021 SARS-CoV-2 (COVID-19 ) mRNA BNT-162b2 v[address] Onel H[address] [facility] Comment on above: Result Comment: 2022: [id number] 09-24-2020 pneumococcal polysaccharide vaccine, [address] [facility] 09-21-2020 zoster vaccine recombinant Onel Hoy [facility] 08-12-2020 tetanus toxoid, redu richar diphtheria toxoid, and acellular pertussis vaccine, adsorbed Onel Hoy [facility] 08-03-2020 influenza virus vacc ine, unspecified formulation Onel Hoy [facility] 07-22-2020 zoster vaccine recombinant Onel Hoy [facility] 09-15-2019 influenza virus vacc ine, unspecified formulation Onel Hoy [facility] 07-22-2018 influenza virus vacc ine, unspecified formulation Onel Hoy [facility] 07-22-2018 influenza, high dose seasonal, preservative-free Hannah Taylor APRN.CATTLE TESTER Work Phone: [facility] Work Phone: 10-11-2017 influenza virus vacc ine, unspecified formulation Onel Isaacs [facility] 10-11-2017 Seasonal trivalent influenza vaccine, adjuvanted, preservative free Hannah Taylor REVERSE LOGISTICS ANALYST.CATTLE TESTER Work Phone: [facility] [facility] Work Phone: 06-10-2017 pneumococcal conjuga te vaccine, 13 valent Hannah Taylor REVERSE LOGISTICS ANALYST.CATTLE [employer] Work Phone: [facility] Work Phone: 12-05-2015 influenza virus vacc ine, unspecified formulation Onel Isaacs [facility] 12-05-2015 influenza, seasonal, injectable, preservative free Hannah Taylor REVERSE LOGISTICS ANALYST.[facility] Work Phone: [facility] Work Phone: 10-05-2014 influenza virus vacc ine, unspecified formulation Onel Isaacs [facility] 10-05-2014 influenza, injectabl e, quadrivalent, contains preservative Hannah Taylor REVERSE LOGISTICS ANALYST.[facility] Work Phone: [facility] Work Phone: 08-28-2005 tetanus toxoid, adsorbed Chr istina Taylor REVERSE LOGISTICS ANALYST.[facility] Work Phone: [facility] Work Phone: Payers Date Payer Category Payer Private Health Insurance HUMANA HUMANA MEDICARE SUPPLEMENT [id number] 2015-Present [phone] [address] [address] [place] [address] Indemnity [id number] 2015 Private Health Insurance [id number] 2015 Private Health Insurance [id number] 2013 Medicare MEDICARE MEDICAR E A AND B [id number] 2013-Present [phone] [place] [address] Medicare [id number] 2013 Medicare [id number] 2013 Medicare [id number] 2013 Government (not [facility] or Medicaid) OCCUPATIONAL HEALTH LINK [id number] 07-26-2013 Unknown [facility] OCCUPATIONAL HEALTH LINK [id number] 07/26/2013-Present [phone] [place] [address] [address] [place] [address] [facility] [id number] 1945 Unknown [id number] 1945 Unknown [id number] Social History Date Type Detail Facility Start: 02-07-2022 End: 12-01-2024 Tobacco smoking status Ex-smoker (finding) [facility] Start: 02-08-2023 End: 08-14-2023 Sex Assigned At Male [facility] Start: 08-11-1965 End: 08-11-1990 History of tobacco use Current smoker [facility] Start: 08-11-1965 End: 08-11-1990 History of tobacco use Cigarette Smoker [facility] Start: 10-29-2016 End: 07-08-2023 Cigarettes smoked current (pack per day) - Reported 1.5 [facility] Start: 10-29-2016 End: 12-01-2024 Tobacco use and exposure Smokeless tobacco non-user [facility] Start: 02-09-2022 End: 12-08-2024 Alcohol intake Current drinker of alcohol (finding) [facility] Start: 10-29-2016 History SDOH Alcohol Comment social [facility] Start: 1945 Sex Assigned At Male [facility] Start: 04-01-2022 End: 08-15-2022 Exposure to SARS-CoV-2 (event) Not sure [facility] Tobacco smoking status Never [facility] Start: 08-15-2022 Tobacco Comment Quit over 30 yrs ago [facility] Start: 07-07-2019 Gender identity Identifies as male gender (finding) [facility] Start: 07-07-2019 Sexual orientation Heterosexual (finding) [facility] Start: 06-20-2023 Tobacco Comment >10 years since last smoked [facility] Start: 06-20-2023 Alcohol Comment caffeine: 3-4 cups per day coffee [facility] Medical Equipment Procedure Code Equipment Code Equipment Original Text Equipment Identifier Dates Graft Gelweave V alsalva 30mm 15cm Cardiovascular Woven Aortic Root - [id number] Start: 08-12-2018 Atkins Thk1.65mm P tfe 4x.5in Cardiovascular Sterile - [id number] Start: 08-12-2018 Valve Aort 27mm Crp-Ed Thfx - [id number] Start: 08-12-2018 Goals Date Patient Goal Desired Activity /State Personal health goal Functional Status Date Assessment Result Facility 08-14-2024 Functional Status N/A [facility] [place] 08-20-2018 Are you deaf, or do you have serious difficulty hearing No 08/20/2018 11:35 AM Delisa Romano RN No [facility] 08-20-2018 Are you blind, or do you have serious difficulty seeing, even when wearing glasses No 08/20/2018 11:35 AM Delisa Romano RN No [facility] 08-20-2018 Do you have serious difficulty walking or climbing stairs No 08/20/2018 11:35 AM Delisa Romano RN No [facility] 08-20-2018 Do you have difficul ty dressing or bathing No 08/20/2018 11:35 AM Delisa Rmoano RN No [facility] 08-20-2018 Because of a physica l, mental, or emotional condition, do you have difficulty doing errands alone such as visiting a physician's office or shopping No 08/20/2018 11:35 AM Delisa Romano RN No [facility] Mental Status Date Assessment Result Facility 08-20-2018 Because of a physica l, mental, or emotional condition, do you have serious difficulty concentrating, remembering, or making decisions No 08/20/2018 11:35 AM Delisa Romano RN No [facility] Clinical Notes 08-15-2018 to 12-28-2024 Telephone Encounter - Sarah Huitron OD - 12/28/2024 5:01 PM ESTTelephone Encounter - Sarah Huitron OD - 12/28/2024 5:01 PM ESTTelephone Encounter - Radha Garcia - 12/28/2024 3:38 PM EST Note Date & Type Note Facility 12-28-2024 Telephone encounter Note Rx sent in for doxy 50 qd x 4 weeks M Tomy [facility] 12-28-2024 Miscellaneous Notes Rx sent in for doxy 50 qd x 4 weeks M Tomy Saw pt on (12/22/24) at visit pt states prescribed him an antibiotic. Pt would like antibiotic and would like it sent to [id number] [place] [address] documented in this encounter [facility] 12-28-2024 Telephone encounter Note Saw pt on (12/22/24) at visit pt states prescribed him an antibiotic. Pt would like antibiotic and would like [id number] [place] [address] [facility] 12-28-[address] RN - 12/28/2024 12:13 PM EST Pre op checklist and instructions: Adults Surgery date: TBD, please send Dr. Barraza a [employer] message The following is a list of things needed in order to have surgery. If you have any questions about any of the items not being completed prior to the day of surgery, please call our office at [phone]. You will need: - A history and physical within 30 days of the surgery date (done by [facility], the pre-anesthesia team at [facility]) - Labs (you can go directly to the 1st floor) The surgery will take place at: - MAIN CAMPUS: [facility] ([address] [address]) Check in desk is located at [id number]. Most convenient parking garage is P1 ([facility]) located at [address] [address]. [facility] Director will also be available for purchase at the [facility] entrance. The day before surgery our material scheduler will call you with the information regarding the time of your surgery. If you have not received a call from us by 3 pm the day before your scheduled surgery, please call [phone] and let them know you have not gotten your time for surgery. Please refer to our website for further information ([email or web address]). DO NOT EAT OR DRINK ANYTHING AFTER MIDNIGHT THE NIGHT BEFORE YOUR SCHEDULED SURGERY! This includes water, hard candy, and gum. Let your surgeon know if you are on any blood thinners (Ex: aspirin, Coumadin, Plavix, Pradaxa, Apixiban, Xarelto) at least 2 weeks before your surgery. The physician that ordered these medications should confirm that you can stop them and clear you for the surgery. Failure to do so can lead to a cancelled surgery and/or complications during and after surgery Please leave all valuables at home the day of surgery. DO NOT wear any jewelry, makeup, body piercings, nail malay, or hairpins Call the office with any questions about what medications are safe to take before surgery. Do not smoke for 6-8 (ideally 12) weeks prior to surgery. Do not use products containing nicotine such as the patch or gum. Smoking will increase your risk for post-operative complications such as infection If you are having outpatient surgery you WILL NOT be permitted to drive, take a cab, or bus home. If you do not have someone to drive you home, your surgery will be cancelled Do not plan anything for the day of surgery. Plan on being here all day long as there are unpredictable delays occurring every day. FAILURE TO FOLLOW THESE INSTRUCTIONS COULD LEAD TO CANCELLATION OF SCHEDULED SURGERY If you have any questions or are unsure of the above instructions, please do not hesitate to ask. We know how stressful the day of surgery can be without a list of things to follow! We look forward to seeing you documented in this encounter [facility] 12-28-2024 Note HNO ID: [id number] Author: HEMA MENDEZ ST Service: ? Author Type: Podiatric Foot And Ankle Specialist Type: Progress Notes Filed: 12/28/2024 11:30 Note Text: DATE OF PHOTOS: 12/28/2024 Body Part: Eyes Photos taken by ST Kwan December 28, 2024 11:30 AM [facility] 12-28-2024 History of Present illness Narrative DATE OF PHOTOS: 12/28/2024 Body Part: Eyes Photos taken by ST Kwan December 28, 2024 11:30 AM documented in this encounter [facility] 12-28-2024 History of Present illness Narrative Images from the original note were not included. BLEPHAROPLASTY Patient Evaluation and Operative Planning CC: ....Consult.Bilateral upper and brow lift ......... ? HPI: Wally is a 79 year old male who presents today for evaluation of bilateral upper blepharoplasty and brow lift. Patient was seen by a plastic surgeon in [place] and was approved for surgery but would like a second opinion. Patient has had multiple seborrheic keratosis that was treated by a semiconductor wafers etcher stripper with liquid nitrogen. Patient reports that he [...] benefit from a blepharoplasty and brow lift. Patient was seen by Optometry on 12/22/24 for a Dash test. -Normal Dash's test result OD 25 mm OS 22 mm Patient was approved for browlift and upper blepharoplasty. He is here today to discuss a surgery date. Occupation: Retired Patient Concerns: Tired appearance: yes [...] Current Outpatient Medications Medication Sig Dispense Refill MULTIVITAMIN ORAL Take by mouth. metoprolol succinate ER (TOPROL XL) 25 mg 24 hr tablet Take 1 tablet by mouth every evening. 90 tablet 3 furosemide (LASIX) 20 mg tablet Take 20 mg by mouth once daily. simvastatin (ZOCOR) 20 mg tablet daily at bedtime. irbesartan (AVAPRO) 300 mg tablet Take 1 tablet by mouth daily at bedtime. 90 tablet 3 iron bisgly,ps-FA-B-C#12-succ 65 mg-65 mg -1,000 mcg (24) tab Take 65 mg by mouth once weekly aspirin, enteric coated (ASPIRIN, ENTERIC COATED) 81 mg EC tablet Take 81 mg by mouth once daily. OTC PRODUCT once daily. OTC Force Factor take 3 tablet once per day oq-fd-K-theanine-herb no.310 (AIRBORNE EVERYDAY STRESS AWAY) 1,000 mg-200 mg-360 mg pwpk Take by mouth. acetaminophen (TYLENOL) 325 mg tablet Take 650 mg by mouth as needed for pain. sodium chloride (SALINE MIST NASAL) Use in the nose. azithromycin (ZITHROMAX) 500 mg tablet Take 1 tablet by mouth once daily. Take one tablet 60 minutes prior to procedure. 1 tablet 0 olopatadine (PATADAY TWICE DAILY RELIEF) 0.1 % [...] taken for this visit. ALLERGIES Allergen Reactions Hydrocodone-Acetami* Unknown Lisinopril Cough Oxycodone Itching Amoxicillin Diarrhea There is no height or weight on file to calculate BMI. Estimated body surface area is 2.04 meters squared as calculated from the following: Height as of 12/01/24: 177.8 cm (5' 10 ). Weight as of 12/01/24: 83.9 kg (185 lb). No results found for: HBA1C Last 10 Encounter BP Readings: Date: BP: 02/11/2024 128/80 08/13/2023 132/85 02/08/2023 132/84 02/06/2023 123/84 01/11/2023 110/64 08/15/2022 114/72 02/05/2022 108/60 04/12/2021 108/76 10/12/2020 124/68 08/17/2020 122/78 Latest Ref Rng & Units 08/27/2018 09/11/2018 02/06/2023 CBC WBC 3.70 - 11.00 k/uL 10.55 8.68 7.89 RBC 4.20 - 6.00 m/uL 3.63 4.04 5.24 Hemoglobin 13.0 - 17.0 g/dL 10.2 11.1 15.2 Hematocrit 39.0 - 51.0 % 33.2 37.2 46.7 MCV 80.0 - 100.0 fL 91.5 92.1 89.1 MCH 26.0 - 34.0 pg 28.1 27.5 29.0 MCHC 30.5 - 36.0 g/dL 30.7 29.8 32.5 RDW-CV 11.5 - 15.0 % 14.0 14.0 14.1 Platelet Count 150 - 400 k/uL 557 253 152 MPV 9.0 - 12.7 fL 10.3 10.9 11.0 Latest Ref Rng & Units 02/06/2023 04/05/2023 02/05/2024 CMP Sodium 136 - 144 mmol/L 143 141 143 Potassium 3.7 - 5.1 mmol/L 3.7 3.5 3.7 Chloride 97 - 105 mmol/L 107 104 105 CO2 22 - 30 mmol/L 25 27 26 Glucose 74 - 99 mg/dL 93 77 96 BUN 9 - 24 mg/dL 20 15 16 Creatinine 0.73 - 1.22 mg/dL 1.43 1.18 1.18 EGFR >=60 mL/min/1.73m 51 64 64 Protein, Total 6.3 - 8.0 g/dL 7.0 Albumin 3.9 - 4.9 g/dL 4.6 Calcium 8.5 - 10.2 mg/dL 9.8 10.0 10.2 Bilirubin, Total 0.2 - 1.3 mg/dL 0.8 AST 14 - 40 U/L 30 ALT 10 - 54 U/L 21 22 Alkaline Phosphatase 38 - 113 U/L 74 YES NO Smoking, vaping, nicotine, cannabis [] [x] Cigarettes/ day.quit 32 years ago... ? Hormone replacement (contraceptive, post menopause hormone treatment) [] [x] Medication.... Diabetes [] [x] []Type 1? []Type 2 ?Last A1c:..... Systemic inflammatory diseases [] [x] []RA []Gout []Other... Hypertension [x] [] Meds:..Avapro..... Heart disease or pacemaker [x] [] ......Aortic vavle replacement. Had open heart surgery about 6 years ago...... Family history blood clots [] [x] Personal history blood clots [] [x] Anticoagulation (aspirin, coumadin, xarelto,etc) [x] [] What....Aspirin 81mg ....... Reason:........... Immunosuppressants (steroid, biologic meds infusion, etc) [] [x] What........... Reason:........... Pt AGAINST blood transfusion? 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 Telephone number: ....[phone]........ Date of Last Exam: ....03/12/2024......... Findings: ............ (visual field cut off) Exam: Visual Acuity Right / Left Uncorrected +0.75 -2,25 x100...... / .....+0.50 -0.75 x125... Corrected ...20.. / ...20..... Conjunctival/ Tear Production: Irritation/redness yes [] no [x] / yes [] no [x] Dash II yes [] no [] .......mm / yes [] no [] .......mm (normal >15 mm at 5 minutes; less than 4 severe) Other Orbit: PERRLA EOMI Max hypoplasia/Neg vector yes [] no [x] / yes [] no [x] (vertical line from maximal corneal projection to the orbitale (infraorbital rim)) Enophthalmos yes [] no [x] / yes [] no [x] Exopthalmos yes [] no [x] / yes [] no [x] Intermittent diplopia Brow: Frontalis function yes [x] no [] / yes [x] no [] Brow ptosis yes [x] no [] ....5...mm / yes [x] no [] ....2....mm L>R (Brow 1 cm above sup rim for female and at for male) Shape: []straight [x]curved []soft arch []high arch [] S shape []upward Asymmetry: yes [x] no [] Left side lower than right side Compensation: yes [x] no [] Upper Eyelids: Ptosis ...0.... mm / ....0... mm Skin Redundancy .....5.. mm / ....5... mm Skin hangs past lid margin yes [] no [x] / yes [x] no [] Supratarsal fold decrease .....0.. mm / ..0..... mm Pseudoherniated fat (0-4+) 0[x] 1[] 2[] 3[] 4[] / 0[x] 1[] 2[] 3[] 4[]- Prelevator medial yes [] no [] / yes [] no [] Medial yes [x] no [] / yes [x] no [] Prolapse lacrimal gland yes [] no [x] / yes [] no [x] Canthal tilt [x]neutral []lateral up []lateral down / [x]neutral []lateral up []lateral down Levator function yes [x] no [] ...15.... mm / yes [x] no [] ...15.... mm (Downward gaze with brow fixed in up gaze level: Poor 0-5 fair 6-11 Good >11) Palpebral Fissure Height ..11..... mm / ....11... mm (At axis of the globe 9-12 is normal) Marginal Reflex Distance 1 ...4.... mm / ....4... mm (Mid corneal light reflex to upper lid margin; normal is 4-5 mm) MRD 2 R- 5-6mm, 5-6mm [place]'s feet rhytids yes [] no [x] / yes [] no [x] Forehead static lines Lower Eyelids: Skin redundancy estimate ....... mm / ....... mm Orbicularis hypertrophy yes [] no [] / yes [] no [] Pseudoherniated fat (0-4+) 0[] 1[] 2[] 3[] 4[] / 0[] 1[] 2[] 3[] 4[] Medial yes [] no [] / yes [] no [] Lateral yes [] no [] / yes [] no [] Snap test ....... sec / ....... Sec Distraction test ....... mm / ....... mm (6 mm or less of lid distraction can be adequately treated with can- thopexy techniques, whereas those with distraction greater than 6 mm require cantholysis and canthoplasty) Sclerar show ....... mm / ....... mm Marginal Reflex Distance 2 ....... mm / ....... mm (Mid corneal light reflex to lower lid margin; normal is 4-5 mm) Hyperpigmentation yes [] no [] / yes [] no [] Ectropion yes [] no [] / yes [] no [] Entropion yes [] no [] / yes [] no [] Tear Trough Deformity yes [] no [] / yes [] no [] Palpebromalar groove yes [] no [] / yes [] no [] Nasojugal groove yes [] no [] / yes [] no [] Festoon yes [] no [] / yes [] no [] Difference of tear trough and nasojugal groove Tear trough deformities are located between the palpebral and orbital parts of the orbicularis oculi, and the location of the nasojugal groove corresponds to the inferior border of the orbicularis oculi. Blue dashed line, tear trough deformity; red dashed line, nasojugal groove; OF, orbital fat; OS, orbital septum; SOOF, sub orbicularis oculi fat; PO, palpebral part of the orbicularis oculi muscle; LLSAN, levator labii superioris alaeque nasi muscle; MFP, malar fat pad; OOM, orbicularis oculi muscle (Ildefonso, Definitions of groove and hollowness of the infraorbital region and clinical treatment using soft-tissue filler). 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 Brow lift Endoscopic: yes [] no [] / yes [] no [] Open: yes [x] no [] / yes [x] no [] (If not done, pt aware will be unmasked with ptosis repair) 2. Ptosis procedure yes [x] no [] / yes [x] no [] 3. Excise skin yes [x] no [] / yes [x] no [] 4. Excise orbicularis yes [] no [] / yes [] no [] 5. Exc. fat ant. to orbicularis yes [] no [] / yes [] no [] 6. Plication lacrimal gland yes [] no [] / yes [] no [] 7. Lateral canthopexy yes [] no [] / yes [] no [] (Above Whitnall's ligament for neg vector and below for enophthalmos) Surgical Plan for Lowers 1. Excise skin yes [] no [] / yes [] no [] 2. Excise orbicularis yes [] no [] / yes [] no [] 3. Ex fat ant. to orbicularis yes [] no [] / yes [] no [] 4. Transconj Approach yes [] no [] 5. Redrape SOOF yes [] no [] / yes [] no [] 6. Canthopexy yes [] no [] / yes [] no [] 7. Cantholysis and canthoplasty yes [] no [] / yes [] no [] Planned procedure: [x]Bilateral upper []lower lid blepharoplasty [x]brow lift. The patient understands the procedure in detail, the personnel required to perform the procedure, the alternatives to the procedure, and the risks. Will need clearance by rotary drier feeder/diesel plant operator with []Dash Test and formal []Visual Field Cut Offs The patient is seen and examined by Dr. Barraza and the following reflects his/her service. Scribed by Allie Conner RN and Penny Way RN I agree with the Chief Complaint, ROS, and Past Histories independently gathered by the clinical underwriting support specialist/resident and the remaining scribed note accurately describes my personal service to the patient. 25 minutes of the total visit were spent face to face with patient. Greater than 50% of the time was spent for counseling and coordination of care, discussing treatment options and recommendations. Angeles Prince MD December 28, 2024 1:21 PM This note was generated with voice recognition software and may contain errors, including spelling, grammar, syntax and misrecognition of what was dictated, that are not fully corrected. documented in this encounter [facility] 12-28-2024 Note HNO ID: [id number] Author: ANGELES DECKER MD Service: ? Author Type: Physician Type: Progress Notes Filed: 12/28/2024 13:22 Note Text: BLEPHAROPLASTY Patient Evaluation and Operative Planning CC: ....Consult.Bilateral upper and brow lift ......... ? HPI: Wally is a 79 year old male who presents today for evaluation of bilateral upper blepharoplasty and brow lift. Patient was seen by a plastic surgeon in [place] and was approved for surgery but would like a second opinion. Patient has had multiple seborrheic keratosis that was treated by a semiconductor wafers etcher stripper with liquid nitrogen. Patient reports that he [...] benefit from a blepharoplasty and brow lift. Patient was seen by Optometry on 12/22/24 for a Dash test. -Normal Dash's test result OD 25 mm OS 22 mm Patient was approved for browlift and upper blepharoplasty. He is here today to discuss a surgery date. Occupation: Retired Patient Concerns: Tired appearance: yes [...] Current Outpatient Medications Medication Sig Dispense Refill MULTIVITAMIN ORAL Take by mouth. metoprolol succinate ER (TOPROL XL) 25 mg 24 hr tablet Take 1 tablet by mouth every evening. 90 tablet 3 furosemide (LASIX) 20 mg tablet Take 20 mg by mouth once daily. simvastatin (ZOCOR) 20 mg tablet daily at bedtime. irbesartan (AVAPRO) 300 mg tablet Take 1 tablet by mouth daily at bedtime. 90 tablet 3 iron bisgly,ps-FA-B-C#12-succ 65 mg-65 mg -1,000 mcg (24) tab Take 65 mg by mouth once weekly aspirin, enteric coated (ASPIRIN, ENTERIC COATED) 81 mg EC tablet Take 81 mg by mouth once daily. OTC PRODUCT once daily. OTC Force Factor take 3 tablet once per day gs-vm-N-rola-herb no.310 (AIRBORNE EVERYDAY STRESS AWAY) 1,000 mg-200 mg-360 mg pwpk Take by mouth. acetaminophen (TYLENOL) 325 mg tablet Take 650 mg by mouth as needed for pain. sodium chloride (SALINE MIST NASAL) Use in the nose. azithromycin (ZITHROMAX) 500 mg tablet Take 1 tablet by mouth once daily. Take one tablet 60 minutes prior to procedure. 1 tablet 0 olopatadine (PATADAY TWICE DAILY RELIEF) 0.1 % [...] taken for this visit. ALLERGIES Allergen Reactions Hydrocodone-Acetami* Unknown Lisinopril Cough Oxycodone Itching Amoxicillin Diarrhea There is no height or weight on file to calculate BMI. Estimated body surface area is 2.04 meters squared as calculated from the following: Height as of 12/01/24: 177.8 cm (5' 10 ). Weight as of 12/01/24: 83.9 kg (185 lb). No results found for: HBA1C Last 10 Encounter BP Readings: Date: BP: 02/11/2024 128/80 08/13/2023 132/85 02/08/2023 132/84 02/06/2023 123/84 01/11/2023 110/64 08/15/2022 114/72 02/05/2022 108 (more content not included)... [facility] 12-22-2024 Note HNO ID: [id number] Author: SARAH HUITRON, OD Service: ? Author Type: DRILLING FOREMAN Type: Progress Notes Filed: 12/22/2024 09:40 Note [...] Huitron, OD December 22, 2024 9:38 AM [facility] 12-22-2024 History of Present illness Narrative [...] 2024 9:38 AM documented in this encounter [facility] 12-08-2024 Telephone encounter Note Pt calling in and he said he spoke to his eye doctor and they do not do the test Dash test anymore because it is outdated. The recommended first inflammatory test, TBUT, Corneal staining pt would like to know what to do [facility] 12-08-2024 Miscellaneous Notes Pt calling in and he said he spoke to his eye doctor and they do not do the test Dash test anymore because it is outdated. The recommended first inflammatory test, TBUT, Corneal staining pt would like to know what to do documented in this encounter [facility] 12-08-2024 Note HNO ID: [id number] Author: ANGELES DECKER MD Service: ? Author Type: Physician Type: Progress Notes Filed: 12/08/2024 14:47 Note Text: BLEPHAROPLASTY Patient Evaluation and Operative Planning CC: ....Consult.Bilateral upper and brow lift ......... ? HPI: Wally is a 79 year old male who presents today for evaluation of bilateral upper blepharoplasty and brow lift. Patient was seen by a plastic surgeon in [place] and was approved for surgery but would like a second opinion. Patient has had multiple seborrheic keratosis that was treated by a semiconductor wafers etcher stripper with liquid nitrogen. Patient reports that he [...] Factor take 3 tablet once per day yf-ap-E-theanine-herb no.310 (AIRBORNE EVERYDAY STRESS AWAY) 1,000 mg-200 [...] 3.63 4.04 5 (more content not included)... [facility] 12-01-2024 Note HNO ID: [id number] Author: ABEBA KEEN APRN.CATTLE TESTER Service: ? Author Type: Nurse Practitioner Type: Progress Notes Filed: 12/08/2024 17:19 Note Text: [facility] [place] [facility] Department of Cardiovascular Medicine SECTION OF PREVENTIVE CARDIOLOGY 12/01/2024 Frankiedominique Pasha Barrow CURRENT MEDS: Current Outpatient Medications Medication [...] Factor take 3 tablet once per day ib-ms-M-theanine-herb no.310 (AIRBORNE EVERYDAY STRESS AWAY) 1,000 mg-200 [...] or rhonchi Heart:S1/ (more content not included)... [facility] 12-01-2024 History of Present illness Narrative Images from the original note were not included. [facility] [place] [facility] Department of Cardiovascular Medicine SECTION [...] Factor take 3 tablet once per day cw-oz-X-theanine-herb no.310 (AIRBORNE EVERYDAY STRESS AWAY) 1,000 mg-200 [...] ABNORMAL ECG Confirmed by LEEANNE SOLIZ, ARASELI ([id number]) on 01/14/2023 10:15:12 AM Ejection Fraction: Ejection [...] 74 - 99 mg/dL Final Comment: The [place] Diabetes Association (ADA) provides guidance for cutoff [...] Standards of Medical Care in Diabetes 2016, [place] Diabetes Association. Diabetes Care. 2016.39(Suppl 1). TSH [...] for Disease Control and Prevention and the [place] Heart Association. Circulation 2003;107:499-511. Creatinine Date Value [...] (28 gelweave graft) on 08/12/[address] Birggs. Echo 04/2023 showed no significant change. EF 62%. Pt notices stable lightheadedness and decreased motivation to start daily bowstring maker. Per Dr. Portillo, repeat echo 04/2025. Pt [...] and care of this patient. Abeba Keen APRN.CATTLE TESTER Addendum December 01, 2024 10:37 PM Echo [...] on the current study. 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 [facility] Comment on above: Result Comment: Elec tronically Signed By: AGATHA SOLIZ, Sarah Bradford\Date and Time Signed: 08/14/24 16:26 EDT 05-26-2024 Telephone encounter Note Pt phoned regarding his . Spoke with Pt and documented in her chart. Abeba Keen APRN.CNP [facility] 05-26-2024 Miscellaneous Notes Pt phoned regarding his . Spoke with Pt and documented in her chart. Abeba Keen APRN.CNP Pt calling to speak with Abeba, he asks that she please return his call when she gets in on Saturday. Cb#:[phone] documented in this encounter [facility] 05-22-2024 Telephone encounter Note Pt calling to speak with Abeba, he asks that she please return his call when she gets in on Saturday. Cb#:[phone] [facility] 02-11-2024 Note HNO ID: [id number] Author: ABEBA KEEN APRN.CNP Service: ? Author Type: Nurse Practitioner Type: Progress Notes Filed: 02/25/2024 12:19 Note Text: [facility] [place] [facility] Department of Cardiovascular Medicine SECTION [...] Factor take 3 tablet once per day al-op-W-rola-herb no.310 (AIRBORNE EVERYDAY STRESS AWAY) 1,000 mg-200 [...] without murmur, nor (more content not included)... [facility] 02-11-2024 History of Present illness Narrative Images from the original note were not included. [facility] [place] [facility] Department of Cardiovascular Medicine SECTION [...] Factor take 3 tablet once per day yp-ng-N-theanine-herb no.310 (AIRBORNE EVERYDAY STRESS AWAY) 1,000 mg-200 [...] 74 - 99 mg/dL Final Comment: The [place] Diabetes Association (ADA) provides guidance for cutoff [...] Standards of Medical Care in Diabetes 2016, [place] Diabetes Association. Diabetes Care. 2016.39(Suppl 1). TSH [...] for Disease Control and Prevention and the [place] Heart Association. Circulation 2002;107:499-511. Creatinine Date Value Ref Range Status 02/05/2024 [...] lightheadedness and decreased motivation to start daily bowstring maker. Will discuss timing of repeat echo with [...] Abeba Keen APRN.TRACEY documented in this encounter [facility] 11-11-2023 Miscellaneous Notes Call from patient requesting refill. Requested Prescriptions Pending Prescriptions Disp Refills hydroCHLOROthiazide 25 mg tablet 90 tablet 3 Sig: Take 1 tablet by mouth once daily. Patient last seen 08/17 Indira Zavala documented in this encounter [facility] 08-13-2023 History of Present illness Narrative Images from the original note were not included. [facility] [place] [facility] Department of Cardiovascular Medicine SECTION OF [...] Factor take 3 tablet once per day az-pa-P-theanine-herb no.310 (AIRBORNE EVERYDAY STRESS AWAY) 1,000 mg-200 [...] tablet 60 minutes prior to procedure. omega 2-wyy-iyj-fish oil (FISH OIL) 900-1,400 mg cpDR Take [...] ABNORMAL ECG Confirmed by ARASELI FALLON MD ([id number]) on 01/14/2023 10:15:12 AM Ejection Fraction: Ejection [...] 74 - 99 mg/dL Final Comment: The [place] Diabetes Association (ADA) provides guidance for cutoff [...] Standards of Medical Care in Diabetes 2016, [place] Diabetes Association. Diabetes Care. 2016.39(Suppl 1). TSH [...] for Disease Control and Prevention and the [place] Heart Association. Circulation 2003;107:499-511. Creatinine Date Value [...] Abeba Keen APRN.TRACEY documented in this encounter [facility] 07-08-2023 History of Present illness Narrative Associated Order(s): Large Joint Arthro/Inj: R shoulder joint Post-Procedure Diagnose(s): S/P right rotator cuff repair; Traumatic complete tear of right rotator cuff, initial encounter Images from the original note were not included. Prabhakar RiveraMGregSc. Tubular Riveter of Orthopaedic Surgery at [place] [address] Office: [phone] Consult requested for an opinion regarding the evaluation and treatment of the above patient. My final impression and recommendations will be communicated back to the requesting physician by way of the shared medical record or letter via US mail. Patient info: Wally Barrow ([id number]) Service date: 07/08/2023 Referred by: No referring [...] physical therapy as well as topical and megq-aea-tzpvytm medications. Wally reports a current pain level [...] 2 capsule by mouth twice per day. jd-ft-sdsA-mnvCs-Lbl-Zav-hc124 334-1.7 mg chew Take 1 tablet by [...] Factor take 3 tablet once per day we-wd-Q-theanine-herb no.310 (AIRBORNE EVERYDAY STRESS AWAY) 1,000 mg-200 [...] tablet 60 minutes prior to procedure. omega 5-irf-fnv-fish oil (FISH OIL) 900-1,400 mg cpDR Take [...] shoulder joint Informed Consent Consent Obtained: Verbal [place] Protocol A moment to CARE was completed. [...] Shoulder and Elbow Surgeon Orthopaedic Surgery Department [place], [place] [address] Tell: [phone] Appt:[phone] 07/08/2023 10:14 AM CC: documented in this encounter [facility] 06-04-2023 Miscellaneous Notes June 04, 2023 Patient Contact Number: [phone] Patient last seen within the last year: [...] Yes Bekah Murphy documented in this encounter [facility] 03-13-2023 Miscellaneous Notes I called spoke with patient, and informed orders for labs and echo are now in chart so can schedule to have done. Roselyn Orders for labs and echo placed Clarisse Gee APRN.CNP March 12, 2023 Patient Contact Number: [phone] Patient last seen within the last year: Yes Last office visit: 02-08-23 with Mee Taylor Next appt: 08-13-23 with Abeba Alstonarns Reason For Call: Other Issue: testing or orders? Patient called asking about testing needed because only has labs ordered. Thought was supposed to get something in addition. Asking so can schedule Physician: Juan F Portillo MD Patient was informed that non-urgent calls may be returned within the next three business days. Yes Roselyn Aden documented in this encounter [facility] 02-08-2023 Instructions Jamarcus Watts Canoe Builder - 02/08/2023 2:15 PM EDT Images from [...] outside the ones listed below): *Smart Watch (Missionly, Circle Technology, Storie, etc); *POLAR chest strap (model: H10 with any POLAR wrist watch, such as the POLAR UNITE); *Garmin chest strap (model: HRM-Pro Plus with any Garmin watch, such as the VIVOSMART 5); *Caseneto 5 or 7 sport watch *Commercial heart [...] improves orthostatic tolerance in healthy subjects. Circulation. 2002;106(22):9269-6023). Do not gulp or chug water. Slowly [...] listed above. *Commercial brands include for example: *FarmDrop Watch (Missionly, Circle Technology, Storie, etc); *POLAR chest strap (model: H10 with any POLAR wrist watch, such as the POLAR UNITE); *Garmin chest strap (model: HRM-Pro Plus with any Garmin watch, such as the VIVOSMART 5); *SuXcell Medicalo 5 or 7 sport watch *Commercial heart rate monitors are not medical devices and the information acquired from these devices should not be used to make medical diagnostic decisions. *Do NOT monitor your HR while performing activities of daily living or other types of quick physical movements throughout your day. *If necessary/needed, keep a brief exercise log for self-management (free apps such as Lecorpio my Walk or LoveLula Pal or on paper). *Set a hard [...] of Preventive Cardiology (EAPC) and the ESC [place] on Hypertension. Eur J Prev Cardiol. 2021;29(1):205-215. [...] Physical Activity Guidelines for Americans. CARLOS ENRIQUE. 2018;320(19):6187-3670. General Weight Management Recommendations: *I recommend aiming to lose approximately 0.5 lb per week for the next 3 months in order to achieve a body weight of 178 lbs. *Mediterranean style diet is recommended. Take our quiz to see how compliant you are with the Mediterranean style diet: [email or web address]/are -mjd-hgnlwy-t-mediterranean-diet/ *When eating carbohydrates, look for low glycemic [...] exercise prescription. *As needed, Virtual Visit (Visit [email or web address]. Questions? Contact technical support at [phone]) in 6-8 months for follow up discussions regarding progress made with your exercise plan. *If you would like more information on cardiac rehabilitation, please visit our dedicated [facility] web-page aimed at providing evidence-based information on heart health at the following, [email or web address]. Thank you for your visit with us today in Preventive Cardiology and Rehabilitation. Jamarcus Watts, PhD Director, Cardiac Rehabilitation Staff, Section of Preventive Cardiology & Rehabilitation [facility] [place] [facility] [address] [place] [address] Office: [phone] Appointment Desk: [phone] option #3 documented in this encounter [facility] 02-08-2023 History of Present illness Narrative Images from the original note were not included. [facility] [place] [facility] Department of Cardiovascular Medicine SECTION [...] Factor take 3 tablet once per day lv-xh-E-theanine-herb no.310 (AIRBORNE EVERYDAY STRESS AWAY) 1,000 mg-200 [...] tablet 60 minutes prior to procedure. omega 7-klf-ngi-fish oil (FISH OIL) 900-1,400 mg cpDR Take [...] 2 chewables by mouth twice per day. ns-lm-mqxL-dqnGj-Xxi-Unz-hc124 334-1.7 mg chew Take 1 tablet by [...] daily[place] [address] [place]. Readiness for change:Preparation (intent to change [...] 74 - 99 mg/dL Final Comment: The [place] Diabetes Association (ADA) provides guidance for cutoff [...] Standards of Medical Care in Diabetes 2016, [place] Diabetes Association. Diabetes Care. 2016.39(Suppl 1). TSH [...] outside the ones listed below): *Smart Watch (Missionly, Circle Technology, Storie, etc); *POLAR chest strap (model: H10 with any POLAR wrist watch, such as the POLAR UNITE); *Garmin chest strap (model: HRM-Pro Plus with any Garmin watch, such as the Yotta280 5); *Caseneto 5 or 7 sport watch *Commercial heart [...] improves orthostatic tolerance in healthy subjects. Circulation. 2002;106(22):3496-1327). Do not gulp or chug water. Slowly [...] *Commercial brands include for example: *Smart Watch (Missionly, Circle Technology, Storie, etc); *POLAR chest strap (model: H10 with any POLAR wrist watch, such as the POLAR UNITE); *Garmin chest strap (model: HRM-Pro Plus with any Garmin watch, such as the VIVOSMART 5); *[employer] 5 or 7 sport watch *Commercial heart [...] apps such as Map my Walk or LoveLula Pal or on paper). *Set a hard [...] of Preventive Cardiology (EAPC) and the ESC [place] on Hypertension. Eur J Prev Cardiol. 2021;29(1):205-215. [...] Physical Activity Guidelines for Americans. CARLOS ENRIQUE. 2018;320(19):9805-7951. General Weight Management Recommendations: *I recommend aiming to lose approximately 0.5 lb per week for the next 3 months in order to achieve a body weight of 178 lbs. *Mediterranean style diet is recommended. Take our quiz to see how compliant you are with the Mediterranean style diet: [email or web address] -efj-gdicqc-s-mediterranean-diet/ *When eating carbohydrates, look for low glycemic [...] exercise prescription. *As needed, Virtual Visit (Visit [email or web address]. Questions? Contact technical support at [phone]) in 6-8 months for follow up discussions regarding progress made with your exercise plan. *If you would like more information on cardiac rehabilitation, please visit our dedicated [facility] web-page aimed at providing evidence-based information on heart health at the following, [email or web address]. Thank you for your visit with [...] Exercise and lifestyle guidance as above per combination technician. I have reviewed the documentation obtained and documented by the EP and have reviewed and updated the problem list as appropriate. I have personally performed a face to face assessment of the patient and have personally participated in the cartagena components. I have discussed the case and management of the patient's care. Hannah Taylor APRN.CATTLE TESTER AMBULATORY PATIENT EDUCATION Topic: Exercise Instruction Provided To: Patient Discipline: EP Instructed By: Jamarcus Watts, PhD Motivation to Learn: Eager Family/SO Support: High Cognitive Ability: Alert/Oriented Learning Preference: Individual Instructions Barriers: None Diagnosis: Primary Prevention Lifestyle Changes: Exercise Understanding: Verbalize Understanding Follow up: Complete Methods of Instruction: Verbal instruction and/or handouts. documented in this encounter [facility] 02-06-2023 History of Present illness Narrative Images from the original note were not included. Heart, V[facility], [facility] Thor[facility] [place] [facility] Department of Cardiovascular Medicine SECTION [...] weeks. After 09/2020 visit saw Mee Taylor SHIP PROPELLER FINISHER in follow-up in 02/13. Notes daily mild [...] Factor take 3 tablet once per day wy-nc-M-theanine-herb no.310 (AIRBORNE EVERYDAY STRESS AWAY) 1,000 mg-200 [...] tablet 60 minutes prior to procedure. omega 0-hsi-lmj-fish oil (FISH OIL) 900-1,400 mg cpDR Take 1,400 mg by mouth once daily. multivitamin tablet Take 1 tablet by mouth once daily. (Patient taking differently: Take by mouth twice daily. Pt takes 1 capsule by mouth twice per day) olopatadine (PATADAY TWICE DAILY RELIEF) 0.1 % ophthalmic solution Use 1 Drop in both eyes twice daily. iron geo,ps-FA-B-C#12-succ 65 mg-65 mg -1,000 mcg [...] in the CT contrast administration guidelines link. mk-na-rjfZ-oxrEn-Ttt-Dtv-hc124 334-1.7 mg chew Take 1 tablet by [...] Factor take 3 tablet once per day tp-jq-I-theanine-herb no.310 (AIRBORNE EVERYDAY STRESS AWAY) 1,000 mg-200 [...] tablet 60 minutes prior to procedure. omega 5-qem-tzc-fish oil (FISH OIL) 900-1,400 mg cpDR Take [...] in the CT contrast administration guidelines link. db-bk-kprD-dzrOh-Mqi-Opj-hc124 334-1.7 mg chew Take 1 tablet by [...] was of moderate complexity I provided Wally Pak Pushpa with my contact information at this visit (or a prior visit.) This information includes my office phone number, office fax number, Physitrack instructions, and my work email address. Wally Barrow was strongly encouraged to use Physitrack for communication if possible, but my email address was provided if needed. Juan F Portillo MD AMBULATORY PATIENT EDUCATION Topic: Hyperlipidemia and Hypertension Instruction Provided To: Patient Barriers: None Motivation to Learn: Interested Methods of Instruction: Verbal instruction and/or handouts. Patient Leans Best By: Multiple Methods Patient Verbalized: Understanding documented in this encounter [facility] 01-11-2023 History of Present illness Narrative Images from the original note were not included. [facility] [place] [facility] Department of Cardiovascular Medicine SECTION OF PREVENTIVE CARDIOLOGY 01/11/2023 Wally Barrow CURRENT MEDS: Current Outpatient Medications Medication Sig mu-ba-O-theanine-herb no.310 (AIRBORNE EVERYDAY STRESS AWAY) 1,000 mg-200 [...] tablet 60 minutes prior to procedure. omega 9-ooq-brj-fish oil (FISH OIL) 900-1,400 mg cpDR Take [...] in the CT contrast administration guidelines link. gw-yk-diwB-jkuNf-Hkn-Hno-hc124 334-1.7 mg chew Take 1 tablet by [...] 74 - 99 mg/dL Final Comment: The [place] Diabetes Association (ADA) provides guidance for cutoff [...] Standards of Medical Care in Diabetes 2016, [place] Diabetes Association. Diabetes Care. 2016.39(Suppl 1). TSH [...] for Disease Control and Prevention and the [place] Heart Association. Circulation 2003;107:499-511. Creatinine Date Value [...] Abeba Keen APRN.CNP documented in this encounter [facility] 01-11-2023 History of Present illness Narrative RADIOLOGY SERVICE PROGRESS NOTE SERVICE DATE: 01/11/2023 SERVICE TIME: 10:18 AM PATIENT IDENTITY VERIFICATION COMPLETED USING TWO (2) STANDARD IDENTIFIERS: Name and Date of confirmed by patient verbally and Name and Date of confirmed by identification band PATIENT GENDER DATA: male ALLERGIES: Reviewed and unchanged MEDICATIONS REVIEWED BY: Canoe Builder PROCEDURE TYPE: NM STRESS: 0.4 mg of [...] safety can be found using this link: [email or web address] [email or web address] [email or web address]%20Nuclear%20Medicine% [email or web address] SIGNATURE: Jo Wynne RN PATIENT NAME: Wally Barrow DATE: January 11, 2023 TIME: 10:18 AM PAGER/CONTACT #: [id number] documented in this encounter [facility] 01-01-2023 Miscellaneous Notes Images from the [...] distinct coronary calcifications. Office Notes/Consults 08/15/22 Dr Laffin 1) status post AVR Status post AVR [...] us if needed Maryann Torres RN Received [facility] Staff Message from external referring pool/ [facility] sched ([facility]) Wally Barrow is being referred to Unspecified Thoracic Surgeon [...] office for scheduling. Please call pt at [phone]. Patient was informed consultation could be at [place] or [facility] [place]: No Patient Registration: Registration complete/updated: yes Insurance card(s) scanned in [facility] with in the past year: No Pt's Physitrack is active. Ok to communicate to pt via Physitrack yes Medical Records: Records in [facility] (internal CC records): No Imaging in [facility] (internal [facility] records): No Care [...] his imaging/records Enct routed to: No Laurence Colton Adm documented in this encounter [facility] 12-27-2022 Miscellaneous Notes Reason for call: Mr Barrow called and he would like to schedule an appointment with a thoracic surgeon as soon as possible Home and cell number [phone] Diagnosis right side muscle pain Kind Regards Rosa documented in this encounter [facility] 11-12-2022 Miscellaneous Notes Call from patient requesting refill. Requested Prescriptions Pending Prescriptions Disp Refills hydroCHLOROthiazide (HYDRODIURIL, ESIDRIX) 25 mg tablet 90 tablet 3 Sig: Take 1 tablet by mouth once daily. Patient last seen 08/16 Indira Lieberman Pss documented in this encounter [facility] 10-15-2022 Miscellaneous Notes The following approved [...] 07/2022 Bekah Murphy documented in this encounter [facility] 08-15-2022 History of Present illness Narrative Images from the original note were not included. Heart, V[facility], and Thor[facility] [place] [facility] Department of Cardiovascular Medicine SECTION [...] 1 tablet by mouth once daily. omega 5-jhy-jul-fish oil (FISH OIL) 900-1,400 mg cpDR Take [...] in the CT contrast administration guidelines link. wv-tp-zjlO-bfaHv-Gjg-Xur-hc124 334-1.7 mg chew Take 1 tablet by [...] 1 tablet by mouth once daily. omega 6-lxm-gps-fish oil (FISH OIL) 900-1,400 mg cpDR Take [...] in the CT contrast administration guidelines link. uo-vv-xyfD-bxpSk-Ymh-Tla-hc124 334-1.7 mg chew Take 1 tablet by [...] patient encounter was of moderatecomplexity I provided Edward A Pushpa with my contact information at this visit (or a prior visit.) This information includes my office phone number, office fax number, Snocaphart instructions, and my work email address. Wally Pak Pushpa was strongly encouraged to use Physitrack for communication if possible, but my email address was provided if needed. Juan F Portillo MD AMBULATORY PATIENT EDUCATION Topic: Hyperlipidemia and Hypertension Instruction Provided To: Patient Barriers: None Motivation to Learn: Interested Methods of Instruction: Verbal instruction and/or handouts. Patient Leans Best By: Multiple Methods Patient Verbalized: Understanding documented in this encounter [facility] 08-10-2022 Miscellaneous Notes August 10, 2022 Patient Contact Number: [phone] Patient last seen within the last year: [...] Yes Roselyn Aden documented in this encounter [facility] 04-11-2022 History of Present illness Narrative [...] STATUS: Discontinued PROCEDURE TYPE: NM Stress: 13.0mCi Ym23j-Gomxtvh was administered IV for Rest Imaging at 0905. 32 mCi Ne13d-Hdrgvck was administered IV for Stress Imaging at 1018 by RAJAN Raza) . PATIENT DISCHARGED TO: Ambulatory patient, left [place] department area. A Diagnostic radioactive procedure has taken place, with no further precautions necessary other than routine body substance precautions. More information regarding radiation safety can be found using this link: [email or web address] ntal/radiation/files/Rad%20Protection% 20-%20Diagnostic%20Nuclear%20Medicine% 20Procedures.pdf SIGNATURE: RT Althea(R) PATIENT NAME: Wally Barrow DATE: April 11, 2022 TIME: 9:10 AM PAGER/CONTACT #: documented in this encounter [facility] 03-20-2022 Miscellaneous Notes Call from patient requesting refill. Patient is scheduled for dental work on 03/28/22. Pending Prescriptions Disp Refills AZITHROMYCIN 500 MG TABLET 1 tablet 0 Sig: Take 1 tablet by mouth once daily. Take one tablet 60 minutes prior to procedure. DU: No Patient last seen January 2022 Navya Zavala documented in this encounter [facility] 03-09-2022 Evaluation + Plan note Future Scheduled TestsFecal WBC Lactoferrin 03/09/22Giardia lamblia, Direct Detection EIA 03/09/22O & P Exam, Routine 03/09/22Clostridium difficile by PCR 03/09/22Enteric Panel by PCR 03/09/22 [facility] 02-19-2022 Hospital Discharge instructions Patient Education [...] 08/07/2005 Document Revised: 02/26/2019 Document Reviewed: 02/26/2019 [employer] Patient Education 2020 [employer]. 02/19/2022 11:09:09 Diverticulosis MAGR (CUSTOM) Diverticulosis Many [...] unsweetened, w/added ascorbic acid 1 cup 0.5 [place] 1 cup 0.7 Vegetables Cooked Green beans 1 cup 4.0 Carrots 1/2 cup sliced 2.3 Peas 1 cup 8.8 Potato (baked, with skin) 1 medium potato 3.8 Raw [place] (with peel) 1 cucumber 1.5 Lettuce 1 [...] Nutrient Database for Standard Reference. Available at http://www.nal.usda.gov/fnic/foodcomp/ search/. Information adapted from: ExitCare Patient Information 2009 [employer]. [facility] 2012 [email or web address] Follow Up Care 02/07/2022 10:39:23 With:Jayson ADDISON Address: [address] [place] [address] Business (1) When: Unknown Comments:office will call for follow up [facility] 08-15-2018 History of Past i llness [...] incident. Plan: Post-pull repeat CXR ipending. Continue [employer]STRU[employer] for pain related to catheter. Acute post-operative pain 08/12/20182017 Overview: History: post OHS Assessment: pain is well controlled with current regimen. Pt. requests [employer]STRU[employer] continue. Does have itching when takes Oxycodone, but states all pain meds causes this for him (no rash noted) Plan: Continue current regimen with lidoderm patches, Tylenol, Oxycodone/Tramadol, and [employer]. Add Benadryl. Bowel regimen in place. Cardiac [...] Cardiac Surgical prep: N/A SIGNATURE: Belia Gardner APRN.CATTLE TESTER CHECKED BY: DATE of SERVICE: 08/11/2018 TIME of SERVICE: 5:09 PM Ascending aortic aneurysm 2017 Dilated aortic root 08/15/2018 documented as of this encounter (statuses as of 03/23/2022) [facility] History of Past illness Narrative* Problem [...] incident. Plan: Post-pull repeat CXR ipending. Continue [employer] for pain related to catheter. Acute post-operative pain 08/12/20182017 Overview: History: post OHS Assessment: pain is well controlled with current regimen. Pt. requests [employer] continue. Does have itching when takes Oxycodone, but states all pain meds causes this for him (no rash noted) Plan: Continue current regimen with lidoderm patches, Tylenol, Oxycodone/Tramadol, and [employer]. Add Benadryl. Bowel regimen in place. Cardiac [...] Cardiac Surgical prep: N/A SIGNATURE: Belia Gardner APRN.CATTLE TESTER CHECKED BY: DATE of SERVICE: 08/11/2018 TIME of SERVICE: 5:09 PM Ascending aortic aneurysm 2017 Dilated aortic root 08/15/2018 documented as of this encounter (statuses as of 03/28/2022) [facility] History of Past illness Narrative* Problem [...] incident. Plan: Post-pull repeat CXR ipending. Continue [employer] for pain related to catheter. Acute post-operative pain 08/12/20182017 Overview: History: post OHS Assessment: pain is well controlled with current regimen. Pt. requests [employer] continue. Does have itching when takes Oxycodone, but states all pain meds causes this for him (no rash noted) Plan: Continue current regimen with lidoderm patches, Tylenol, Oxycodone/Tramadol, and [employer]. Add Benadryl. Bowel regimen in place. Cardiac [...] of this encounter (statuses as of 04/12/2022) [facility] History of Past illness Narrative* Problem [...] incident. Plan: Post-pull repeat CXR ipending. Continue [employer] for pain related to catheter. Acute post-operative pain 08/12/20182017 Overview: History: post OHS Assessment: pain is well controlled with current regimen. Pt. requests [employer] continue. Does have itching when takes Oxycodone, but states all pain meds causes this for him (no rash noted) Plan: Continue current regimen with lidoderm patches, Tylenol, Oxycodone/Tramadol, and [employer]. Add Benadryl. Bowel regimen in place. Cardiac [...] Cardiac Surgical prep: N/A SIGNATURE: Belia Gardner APRN.CATTLE TESTER CHECKED BY: DATE of SERVICE: 08/11/2018 TIME of SERVICE: 5:09 PM Ascending aortic aneurysm 2017 Dilated aortic root 08/15/2018 documented as of this encounter (statuses as of 08/10/2022) [facility] History of Past illness Narrative* Problem [...] incident. Plan: Post-pull repeat CXR ipending. Continue [employer] for pain related to catheter. Acute post-operative pain 08/12/20182017 Overview: History: post OHS Assessment: pain is well controlled with current regimen. Pt. requests [employer] continue. Does have itching when takes Oxycodone, but states all pain meds causes this for him (no rash noted) Plan: Continue current regimen with lidoderm patches, Tylenol, Oxycodone/Tramadol, and [employer]. Add Benadryl. Bowel regimen in place. Cardiac [...] Cardiac Surgical prep: N/A SIGNATURE: Belia Gardner APRN.CATTLE TESTER CHECKED BY: DATE of SERVICE: 08/11/2018 TIME of SERVICE: 5:09 PM Ascending aortic aneurysm 2017 Dilated aortic root 08/15/2018 documented as of this encounter (statuses as of 08/15/2022) [facility] History of Past illness Narrative* Problem [...] incident. Plan: Post-pull repeat CXR ipending. Continue [employer] for pain related to catheter. Acute post-operative pain 08/12/20182017 Overview: History: post OHS Assessment: pain is well controlled with current regimen. Pt. requests [employer] continue. Does have itching when takes Oxycodone, but states all pain meds causes this for him (no rash noted) Plan: Continue current regimen with lidoderm patches, Tylenol, Oxycodone/Tramadol, and [employer]. Add Benadryl. Bowel regimen in place. Cardiac [...] Cardiac Surgical prep: N/A SIGNATURE: Belia Gardner APRN.CATTLE TESTER CHECKED BY: DATE of SERVICE: 08/11/2018 TIME of SERVICE: 5:09 PM Ascending aortic aneurysm 2017 Dilated aortic root 08/15/2018 documented as of this encounter (statuses as of 10/15/2022) [facility] History of Past illness Narrative* Problem [...] incident. Plan: Post-pull repeat CXR ipending. Continue [employer] for pain related to catheter. Acute post-operative pain 08/12/20182017 Overview: History: post OHS Assessment: pain is well controlled with current regimen. Pt. requests [employer] continue. Does have itching when takes Oxycodone, but states all pain meds causes this for him (no rash noted) Plan: Continue current regimen with lidoderm patches, Tylenol, Oxycodone/Tramadol, and [employer]. Add Benadryl. Bowel regimen in place. Cardiac [...] Cardiac Surgical prep: N/A SIGNATURE: Belia Gardner APRN.CATTLE TESTER CHECKED BY: DATE of SERVICE: 08/11/2018 TIME of SERVICE: 5:09 PM Ascending aortic aneurysm 2017 Dilated aortic root 08/15/2018 documented as of this encounter (statuses as of 11/12/2022) [facility] History of Past illness Narrative* Problem [...] incident. Plan: Post-pull repeat CXR ipending. Continue [employer] for pain related to catheter. Acute post-operative pain 08/12/20182017 Overview: History: post OHS Assessment: pain is well controlled with current regimen. Pt. requests [employer] continue. Does have itching when takes Oxycodone, but states all pain meds causes this for him (no rash noted) Plan: Continue current regimen with lidoderm patches, Tylenol, Oxycodone/Tramadol, and [employer]. Add Benadryl. Bowel regimen in place. Cardiac [...] of this encounter (statuses as of 12/27/2022) [facility] History of Past illness Narrative* Problem [...] incident. Plan: Post-pull repeat CXR ipending. Continue [employer] for pain related to catheter. Acute post-operative pain 08/12/20182017 Overview: History: post OHS Assessment: pain is well controlled with current regimen. Pt. requests [employer] continue. Does have itching when takes Oxycodone, but states all pain meds causes this for him (no rash noted) Plan: Continue current regimen with lidoderm patches, Tylenol, Oxycodone/Tramadol, and [employer]. Add Benadryl. Bowel regimen in place. Cardiac [...] Cardiac Surgical prep: N/A SIGNATURE: Belia Gardner APRN.CATTLE TESTER CHECKED BY: DATE of SERVICE: 08/11/2018 TIME of SERVICE: 5:09 PM Ascending aortic aneurysm 2017 Dilated aortic root 08/15/2018 documented as of this encounter (statuses as of 01/01/2023) [facility] History of Past illness Narrative* Problem [...] incident. Plan: Post-pull repeat CXR ipending. Continue [employer] for pain related to catheter. Acute post-operative pain 08/12/20182017 Overview: History: post OHS Assessment: pain is well controlled with current regimen. Pt. requests [employer]STRU[employer] continue. Does have itching when takes Oxycodone, but states all pain meds causes this for him (no rash noted) Plan: Continue current regimen with lidoderm patches, Tylenol, Oxycodone/Tramadol, and [employer]STRU[employer]. Add Benadryl. Bowel regimen in place. Cardiac [...] Cardiac Surgical prep: N/A SIGNATURE: Belia Gardner APRN.CATTLE TESTER CHECKED BY: DATE of SERVICE: 08/11/2018 TIME of SERVICE: 5:09 PM Ascending aortic aneurysm 2017 Dilated aortic root 08/15/2018 documented as of this encounter (statuses as of 01/09/2023) [facility] History of Past illness Narrative* Problem [...] incident. Plan: Post-pull repeat CXR ipending. Continue [employer] for pain related to catheter. Acute post-operative pain 08/12/20182017 Overview: History: post OHS Assessment: pain is well controlled with current regimen. Pt. requests [employer]STRU[employer] continue. Does have itching when takes Oxycodone, but states all pain meds causes this for him (no rash noted) Plan: Continue current regimen with lidoderm patches, Tylenol, Oxycodone/Tramadol, and [employer]. Add Benadryl. Bowel regimen in place. Cardiac [...] Cardiac Surgical prep: N/A SIGNATURE: Belia Gardner APRN.CATTLE TESTER CHECKED BY: DATE of SERVICE: 08/11/2018 TIME of SERVICE: 5:09 PM Ascending aortic aneurysm 2017 Dilated aortic root 08/15/2018 documented as of this encounter (statuses as of 01/12/2023) [facility] History of Past illness Narrative* Problem [...] incident. Plan: Post-pull repeat CXR ipending. Continue [employer] for pain related to catheter. Acute post-operative pain 08/12/20182017 Overview: History: post OHS Assessment: pain is well controlled with current regimen. Pt. requests [employer] continue. Does have itching when takes Oxycodone, but states all pain meds causes this for him (no rash noted) Plan: Continue current regimen with lidoderm patches, Tylenol, Oxycodone/Tramadol, and [employer]STRU[employer]. Add Benadryl. Bowel regimen in place. Cardiac [...] Cardiac Surgical prep: N/A SIGNATURE: Belia Gardner APRN.CATTLE TESTER CHECKED BY: DATE of SERVICE: 08/11/2018 TIME of SERVICE: 5:09 PM Ascending aortic aneurysm 2017 Dilated aortic root 08/15/2018 documented as of this encounter (statuses as of 01/12/2023) [facility] History of Past illness Narrative* Problem [...] incident. Plan: Post-pull repeat CXR ipending. Continue [employer] for pain related to catheter. Acute post-operative pain 08/12/20182017 Overview: History: post OHS Assessment: pain is well controlled with current regimen. Pt. requests [employer] continue. Does have itching when takes Oxycodone, but states all pain meds causes this for him (no rash noted) Plan: Continue current regimen with lidoderm patches, Tylenol, Oxycodone/Tramadol, and [employer]STRUCTION [employer]. Add Benadryl. Bowel regimen in place. Cardiac [...] Cardiac Surgical prep: N/A SIGNATURE: Belia Gardner APRN.CATTLE TESTER CHECKED BY: DATE of SERVICE: 08/11/2018 TIME of SERVICE: 5:09 PM Ascending aortic aneurysm 2017 Dilated aortic root 08/15/2018 documented as of this encounter (statuses as of 02/06/2023) [facility] History of Past illness Narrative* Problem [...] incident. Plan: Post-pull repeat CXR ipending. Continue [employer] for pain related to catheter. Acute post-operative pain 08/12/20182017 Overview: History: post OHS Assessment: pain is well controlled with current regimen. Pt. requests [employer] continue. Does have itching when takes Oxycodone, but states all pain meds causes this for him (no rash noted) Plan: Continue current regimen with lidoderm patches, Tylenol, Oxycodone/Tramadol, and [employer]. Add Benadryl. Bowel regimen in place. Cardiac [...] of this encounter (statuses as of 02/07/2023) [facility] History of Past illness Narrative* Problem [...] incident. Plan: Post-pull repeat CXR ipending. Continue [employer] for pain related to catheter. Acute post-operative pain 08/12/20182017 Overview: History: post OHS Assessment: pain is well controlled with current regimen. Pt. requests [employer] continue. Does have itching when takes Oxycodone, but states all pain meds causes this for him (no rash noted) Plan: Continue current regimen with lidoderm patches, Tylenol, Oxycodone/Tramadol, and [employer]. Add Benadryl. Bowel regimen in place. Cardiac [...] of this encounter (statuses as of 02/12/2023) [facility] History of Past illness Narrative* Problem [...] incident. Plan: Post-pull repeat CXR ipending. Continue [employer] for pain related to catheter. Acute post-operative pain 08/12/20182017 Overview: History: post OHS Assessment: pain is well controlled with current regimen. Pt. requests [employer] continue. Does have itching when takes Oxycodone, but states all pain meds causes this for him (no rash noted) Plan: Continue current regimen with lidoderm patches, Tylenol, Oxycodone/Tramadol, and [employer]. Add Benadryl. Bowel regimen in place. Cardiac [...] of this encounter (statuses as of 03/13/2023) [facility] History of Past illness Narrative* Problem [...] incident. Plan: Post-pull repeat CXR ipending. Continue [employer] for pain related to catheter. Acute post-operative pain 08/12/2018 Overview: History: post OHS Assessment: pain is well controlled with current regimen. Pt. requests [employer] continue. Does have itching when takes Oxycodone, but states all pain meds causes this for him (no rash noted) Plan: Continue current regimen with lidoderm patches, Tylenol, Oxycodone/Tramadol, and [employer]. Add Benadryl. Bowel regimen in place. Cardiac [...] of this encounter (statuses as of 06/05/2023) [facility] History of Past illness Narrative* Problem [...] incident. Plan: Post-pull repeat CXR ipending. Continue [employer] for pain related to catheter. Acute post-operative pain 08/12/2018 Overview: History: post OHS Assessment: pain is well controlled with current regimen. Pt. requests [employer] continue. Does have itching when takes Oxycodone, but states all pain meds causes this for him (no rash noted) Plan: Continue current regimen with lidoderm patches, Tylenol, Oxycodone/Tramadol, and [employer]. Add Benadryl. Bowel regimen in place. Cardiac [...] Cardiac Surgical prep: N/A SIGNATURE: Belia Gardner APRN.CATTLE TESTER CHECKED BY: DATE of SERVICE: 08/11/2018 TIME of SERVICE: 5:09 PM Ascending aortic aneurysm Dilated aortic root 08/15/20 18 documented as of this encounter (statuses as of 07/08/2023) [facility] History of Past illness Narrative* Problem [...] incident. Plan: Post-pull repeat CXR ipending. Continue [employer] for pain related to catheter. Acute post-operative pain 08/12/2018 Overview: History: post OHS Assessment: pain is well controlled with current regimen. Pt. requests [employer] continue. Does have itching when takes Oxycodone, but states all pain meds causes this for him (no rash noted) Plan: Continue current regimen with lidoderm patches, Tylenol, Oxycodone/Tramadol, and [employer]. Add Benadryl. Bowel regimen in place. Cardiac [...] of this encounter (statuses as of 07/15/2023) [facility] History of Past illness Narrative* Problem [...] incident. Plan: Post-pull repeat CXR ipending. Continue [employer] for pain related to catheter. Acute post-operative pain 08/12/2018 Overview: History: post OHS Assessment: pain is well controlled with current regimen. Pt. requests [employer] continue. Does have itching when takes Oxycodone, but states all pain meds causes this for him (no rash noted) Plan: Continue current regimen with lidoderm patches, Tylenol, Oxycodone/Tramadol, and [employer]. Add Benadryl. Bowel regimen in place. Cardiac [...] of this encounter (statuses as of 08/13/2023) [facility] History of Past illness Narrative* Problem [...] incident. Plan: Post-pull repeat CXR ipending. Continue [employer] for pain related to catheter. Acute post-operative pain 08/12/2018 Overview: History: post OHS Assessment: pain is well controlled with current regimen. Pt. requests [employer] continue. Does have itching when takes Oxycodone, but states all pain meds causes this for him (no rash noted) Plan: Continue current regimen with lidoderm patches, Tylenol, Oxycodone/Tramadol, and [employer]. Add Benadryl. Bowel regimen in place. Cardiac [...] of this encounter (statuses as of 08/19/2023) [facility] History of Past illness Narrative* Problem [...] incident. Plan: Post-pull repeat CXR ipending. Continue [employer] for pain related to catheter. Acute post-operative pain 08/12/2018 Overview: History: post OHS Assessment: pain is well controlled with current regimen. Pt. requests [employer] continue. Does have itching when takes Oxycodone, but states all pain meds causes this for him (no rash noted) Plan: Continue current regimen with lidoderm patches, Tylenol, Oxycodone/Tramadol, and [employer]. Add Benadryl. Bowel regimen in place. Cardiac [...] of this encounter (statuses as of 11/13/2023) [facility] History of Past illness Narrative* Problem [...] incident. Plan: Post-pull repeat CXR ipending. Continue [employer] for pain related to catheter. Acute post-operative pain 08/12/2018 Overview: History: post OHS Assessment: pain is well controlled with current regimen. Pt. requests [employer] continue. Does have itching when takes Oxycodone, but states all pain meds causes this for him (no rash noted) Plan: Continue current regimen with lidoderm patches, Tylenol, Oxycodone/Tramadol, and [employer]. Add Benadryl. Bowel regimen in place. Cardiac [...] of this encounter (statuses as of 02/11/2024) [facility] No data [facility] Future [facility]ments Appointment Date:03/29/2023 [...] Location:FT.PHYSICAL [place] Appointment Type:PT Re-Eval 30 (FT) [facility] note* Diagnosis Precordial pain- Primary [facility] Diagnosis Precordial pain documented in this encounter [facility] note* Diagnosis S/P AVR- Primary Heart valve replaced by other means Essential (primary) hypertension Unspecified essential hypertension documented in this encounter [facility] note* Diagnosis Essential hypertension Unspecified essential hypertension documented in [facility] Diagnosis Essential hypertension Unspecified essential hypertension documented [facility]* Diagnosis Chest pain, unspecified type- Primary documented in this encounter [facility] Diagnosis S/P AVR- Primary Heart valve replaced by other means Essential hypertension Unspecified essential hypertension Chest discomfort Other chest pain documented in this encounter [facility]* Diagnosis Physical deconditioning- Primary Debility, unspecified Elevated serum creatinine Other nonspecific findings on examination of blood S/P AVR Heart valve replaced by other means documented [facility] this encounter [facility] Diagnosis Elevated serum creatinine- Primary [...] Dizziness and giddiness documented in this encounter [facility] Diagnosis S/P AVR- Primary Heart [...] Other specified counseling documented in this encounter [facility]* Diagnosis Hyperlipidemia, unspecified hyperlipidemia type- Primary S/P ascending aortic replacement Blood vessel replaced by other means Nonrheumatic aortic valve insufficiency Aortic valve disorders [facility] Diagnosis S/P right rotator cuff repair- Primary Traumatic complete tear of right rotator cuff, initial encounter [facility] Diagnosis Essential hypertension Unspecified essential hypertension documented in this encounter [facility] Diagnosis Hyperlipidemia, unspecified hyperlipidemia type- Primary Essential hypertension Unspecified essential hypertension S/P AVR Heart valve replaced by other means [facility] Diagnosis Essential hypertension Unspecified essential hypertension [facility] Diagnosis Hyperlipidemia, unspecified hyperlipidemia type- Primary Essential hypertension Unspecified essential hypertension S/P AVR Heart valve replaced by other means [facility] Diagnosis Essential hypertension- Primary Unspecified essential hypertension Hyperlipidemia, unspecified hyperlipidemia type S/P AVR Heart valve replaced by other means documented in [facility] Diagnosis Dry eye- Primary Tear film insufficiency, unspecified Meibomian gland dysfunction (MGD) of upper and lower lids of both eyes Dermatochalasis of both upper eyelids Pseudophakia Lens replaced by other means documented in this encounter [facility]* Diagnosis Brow ptosis, bilateral- Primary Abnormal finding of blood chemistry, unspecified Encounter for therapeutic drug level monitoring Encounter for therapeutic drug monitoring Abnormal coagulation profile Encounter for screening for human immunodeficiency virus (HIV) Special screening examination for other specified viral diseases documented in this encounter [facility] Discharge instructions No data available for this section [facility] No data available for this section [facility] Diagnostic Procedure Only (Routine) - Pending Review Specialty Diagnoses / Procedures Referred By Darnell t Referred To Contact [facility]AG[facility] Diagnoses Precordial pain Procedures NM CARDIAC PERF STRESS/EXERCISE MYOCARDIAL SPECT MULTIPLE STUDIES Todd Nunn MD [address] [place] [address] Molecular [facility] Functional Imaging [address] [place] [address] Referral ID Status Reason Start Date Expiration Date Visits Requested Visits Authorized [id number] Pending Review Auto-Generat ed Referral 04/11/2022 04/26/2023 1 1 [facility] for referral (narrative)* Diagnostic Procedure Only (Routine) - Closed Specialty Diagnoses / Procedures Referred By Darnell collins Referred To Contact MOLECULAR & FUNCTIONAL IMAGING Diagnoses Precordial pain Procedures NM CARDIAC PERF STRESS/EXERCISE MYOCARDIAL SPECT MULTIPLE STUDIES Todd Nunn MD [address] [place] [address] Molecular [facility] Functional Imaging [address] [place], [place] [id number] Referral ID Status Reason Start Date Expiration Date V isits Requested Visits Authorized [id number] Closed Auto-Generate d Referral 04/11/2022 04/26/2023 1 1 [facility] for referral (narrative)* Outpatient Procedure (Routine) - Authorized Specialty Diagnoses / Procedures Referred By Darnell collins Referred To Contact [facility] Diagnoses S/P AVR Procedures ECHO ECHO TTHRC R-T 2D W/WOM-MODE COMPL SPEC&COLR D Juan F Portillo MD [address] [place] [address] [facility] [place] [address] [place] [id number] Referral ID Status Reason Start Date Expiration Date Visits Requested Visits Authorized [id number] Authorized Auto-Generat ed Referral 08/15/2022 08/15/2023 1 1 [facility] for referral (narrative)* Diagnostic Procedure Only (Routine) - Authorized Specialty Diagnoses / Procedures Referred By Contac t Referred To Contact [facility]AG[facility] Diagnoses Chest pain, unspecified type Procedures NM CARDIAC PERF STRESS/PHARM MYOCARDIAL SPECT MULTIPLE STUDIES Todd Nunn MD [address] [place] [address] Molecular [facility] Functional Imaging [address] [place] [address] Referral ID Status Reason Start Date Expiration Date Visits Requested Visits Authorized [id number] Authorized Auto-Generat ed Referral 01/08/2023 02/06/2024 1 1 [facility] for referral (narrative)* Outpatient Procedure (Routine) - Authorized Specialty Diagnoses / Procedures [facility] Referred To Contact [facility] [place] Diagnoses Chest pain, unspecified type Procedures ECG COMPLETE ECG ROUTINE ECG W/LEAST 12 LDS W/I&R Juan F Portillo MD [address] [place] [address] [address] Referral ID Status Reason Start Date Expiration Date Visits Requested Visits Authorized [id number] Authorized Auto-Generat ed Referral 01/08/2023 01/08/2024 1 1 [facility] for referral (narrative)* Outpatient Procedure (Routine) - Pending Review Specialty Diagnoses / Procedures [facility] Referred To Contact [facility] [place] Diagnoses S/P ascending aortic replacement Nonrheumatic aortic valve insufficiency Procedures ECHO ECHO TTHRC R-T 2D W/WOM-MODE COMPL SPEC&COLR D Clarisse Gee, REVERSE LOGISTICS ANALYST.CATTLE TESTER [address] [place] [address] [address] Referral ID Status Reason Start Date Expiration Date Visits Requested Visits Authorized [id number] Pending Review Auto-Generat ed Referral 03/13/2023 03/12/2024 1 1 [facility] Advance Directives No Advanced Directives Records FoundDocuments on File Type Date Recorded 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 Advance Directive(s) 08/11/2018 5:53 PM Advance Directive(s) 08/11/2018 5:51 PM Advance Directive(s) 06/02/2018 6:58 AM Documents on File Type Date Recorded 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 Advance Directive(s) 08/11/2018 5:53 PM Advance Directive(s) 08/11/2018 5:51 PM Advance Directive(s) 06/02/2018 6:58 AM Documents on File Type Date Recorded 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 Advance Directive(s) 08/11/2018 5:51 PM Documents on File Type Date Recorded 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 Advance Directive(s) 08/11/2018 5:51 PM Reason for Referral Specialty Diagnoses / Procedures Referred By Contac t Referred To Contact Diagnoses Brow ptosis, bilateral Procedures REFER TO [facility] - PREOPERATIVE OPTIMIZATION OFFICE/OUTPATIENT [facility] 60 MINUTES Angeles Decker MD [address] [place] [address] Referral ID Status Reason Start Date Expiration Date V isits Requested Visits Authorized [id number] Authorized 12/28/2024 03/28/2025 1 1 Specialty Diagnoses / Procedures Referred By Contac t Referred To Contact [facility] Procedures CARDIOVASCULAR MEDICINE OP FOLLOW UP APPT ORDER Abeba Keen APRN.CNP [address] [place] [address] [facility] [place] [address] [place] [address] Referral ID Status Reason Start Date Expiration Date Visits Requested Visits Authorized [id number] Ref Not Required PCP Requested Referral 08/13/2024 02/10/2025 1 1 Specialty Diagnoses / Procedures Referred By Contac t Referred To Contact [facility] Diagnoses S/P right rotator cuff repair Traumatic complete tear of right rotator cuff, initial encounter Procedures CONSULT TO PHYSICAL THERAPY PHYSICAL THERAPY EVALUATION HIGH COMPLEX 45 MINS Prabhakar Villa MD [address] [place] [address] [facility] [place] [address] [place] [address] Referral ID Status Reason Start Date Expiration Date Visits Requested Visits Authorized [id number] Authorized PCP Requested Referral Auto-Generate d Referral 07/08/2023 07/07/2024 99 99 Specialty Diagnoses / Procedures Referred By Contac t Referred To Contact Diagnoses Physical deconditioning Procedures CARD PREV EXERCISE PRESCRIPTION OFFICE/OUTPATIENT [facility] MDM 60-74 MINUTES Juan F Portillo MD [address] [place] [address] Referral ID Status Reason Start Date Expiration Date Visits Requested Visits Authorized [id number] Authorized PCP Requested Referral 02/06/2023 02/06/2024 1 [...] or prosecute any alcohol or drug abuse patient.[facility] Hospital[facility] the event this information is protected by the Federal Confidentiality of Alcohol and Drug Abuse Patient Records regulations: The Federal rules restrict any use of the information to criminally investigate or prosecute any alcohol or drug abuse patient.[facility] HospitalIn the event this information is protected by the Federal Confidentiality of Alcohol and Drug Abuse Patient Records regulations: The Federal rules restrict any use of the information to criminally investigate or prosecute any alcohol or drug abuse patient.[facility] HospitalIn the event this information is protected by the Federal Confidentiality of Alcohol and Drug Abuse Patient Records regulations: The Federal rules restrict any use of the information to criminally investigate or prosecute any alcohol or drug abuse patient.[facility] HospitalIn the event this information is protected by the Federal Confidentiality of Alcohol and Drug Abuse Patient Records regulations: The Federal rules restrict any use of the information to criminally investigate or prosecute any alcohol or drug abuse patient.[facility] HospitalIn the event this information is protected by the Federal Confidentiality of Alcohol and Drug Abuse Patient Records regulations: The Federal rules restrict any use of the information to criminally investigate or prosecute any alcohol or drug abuse patient.[facility] HospitalIn the event this information is protected by the Federal Confidentiality of Alcohol and Drug Abuse Patient Records regulations: The Federal rules restrict any use of the information to criminally investigate or prosecute any alcohol or drug abuse patient.[facility] HospitalIn the event this information is protected by the Federal Confidentiality of Alcohol and Drug Abuse Patient Records regulations: The Federal rules restrict any use of the information to criminally investigate or prosecute any alcohol or drug abuse patient.[facility] HospitalIn the event this information is protected by the Federal Confidentiality of Alcohol and Drug Abuse Patient Records regulations: The Federal rules restrict any use of the information to criminally investigate or prosecute any alcohol or drug abuse patient.[facility] HospitalIn the event this information is protected by the Federal Confidentiality of Alcohol and Drug Abuse Patient Records regulations: The Federal rules restrict any use of the information to criminally investigate or prosecute any alcohol or drug abuse patient.[facility] HospitalIn the event this information is protected by the Federal Confidentiality of Alcohol and Drug Abuse Patient Records regulations: The Federal rules restrict any use of the information to criminally investigate or prosecute any alcohol or drug abuse patient.[facility] HospitalIn the event this information is protected by the Federal Confidentiality of Alcohol and Drug Abuse Patient Records regulations: The Federal rules restrict any use of the information to criminally investigate or prosecute any alcohol or drug abuse patient.[facility] HospitalIn the event this information is protected by the Federal Confidentiality of Alcohol and Drug Abuse Patient Records regulations: The Federal rules restrict any use of the information to criminally investigate or prosecute any alcohol or drug abuse patient.[facility] HospitalIn the event this information is protected by the Federal Confidentiality of Alcohol and Drug Abuse Patient Records regulations: The Federal rules restrict any use of the information to criminally investigate or prosecute any alcohol or drug abuse patient.[facility] HospitalIn the event this information is protected by the Federal Confidentiality of Alcohol and Drug Abuse Patient Records regulations: The Federal rules restrict any use of the information to criminally investigate or prosecute any alcohol or drug abuse patient.[facility] HospitalIn the event this information is protected by the Federal Confidentiality of Alcohol and Drug Abuse Patient Records regulations: The Federal rules restrict any use of the information to criminally investigate or prosecute any alcohol or drug abuse patient.[facility] HospitalIn the event this information is protected by the Federal Confidentiality of Alcohol and Drug Abuse Patient Records regulations: The Federal rules restrict any use of the information to criminally investigate or prosecute any alcohol or drug abuse patient.[facility] HospitalIn the event this information is protected by the Federal Confidentiality of Alcohol and Drug Abuse Patient Records regulations: The Federal rules restrict any use of the information to criminally investigate or prosecute any alcohol or drug abuse patient.[facility] HospitalIn the event this information is protected by the Federal Confidentiality of Alcohol and Drug Abuse Patient Records regulations: The Federal rules restrict any use of the information to criminally investigate or prosecute any alcohol or drug abuse patient.[facility] HospitalIn the event this information is protected by the Federal Confidentiality of Alcohol and Drug Abuse Patient Records regulations: The Federal rules restrict any use of the information to criminally investigate or prosecute any alcohol or drug abuse patient.[facility] HospitalIn the event this information is protected by the Federal Confidentiality of Alcohol and Drug Abuse Patient Records regulations: The Federal rules restrict any use of the information to criminally investigate or prosecute any alcohol or drug abuse patient.[facility] HospitalIn the event this information is protected by the Federal Confidentiality of Alcohol and Drug Abuse Patient Records regulations: The Federal rules restrict any use of the information to criminally investigate or prosecute any alcohol or drug abuse patient.[facility] HospitalIn the event this information is protected by the Federal Confidentiality of Alcohol and Drug Abuse Patient Records regulations: The Federal rules restrict any use of the information to criminally investigate or prosecute any alcohol or drug abuse patient.[facility] HospitalIn the event this information is protected by the Federal Confidentiality of Alcohol and Drug Abuse Patient Records regulations: The Federal rules restrict any use of the information to criminally investigate or prosecute any alcohol or drug abuse patient.[facility] HospitalIn the event this information is protected by the Federal Confidentiality of Alcohol and Drug Abuse Patient Records regulations: The Federal rules restrict any use of the information to criminally investigate or prosecute any alcohol or drug abuse patient.[facility] HospitalIn the event this information is protected by the Federal Confidentiality of Alcohol and Drug Abuse Patient Records regulations: The Federal rules restrict any use of the information to criminally investigate or prosecute any alcohol or drug abuse patient.[facility] HospitalIn the event this information is protected by the Federal Confidentiality of Alcohol and Drug Abuse Patient Records regulations: The Federal rules restrict any use of the information to criminally investigate or prosecute any alcohol or drug abuse patient.[facility] HospitalIn the event this information is protected by the Federal Confidentiality of Alcohol and Drug Abuse Patient Records regulations: The Federal rules restrict any use of the information to criminally investigate or prosecute any alcohol or drug abuse patient.[facility] HospitalIn the event this information is protected by the Federal Confidentiality of Alcohol and Drug Abuse Patient Records regulations: The Federal rules restrict any use of the information to criminally investigate or prosecute any alcohol or drug abuse patient.[facility] HospitalIn the event this information is protected by the Federal Confidentiality of Alcohol and Drug Abuse Patient Records regulations: The Federal rules restrict any use of the information to criminally investigate or prosecute any alcohol or drug abuse patient.[facility] HospitalIn the event this information is protected by the Federal Confidentiality of Alcohol and Drug Abuse Patient Records regulations: The Federal rules restrict any use of the information to criminally investigate or prosecute any alcohol or drug abuse patient.[facility] HospitalIn the event this information is protected by the Federal Confidentiality of Alcohol and Drug Abuse Patient Records regulations: The Federal rules restrict any use of the information to criminally investigate or prosecute any alcohol or drug abuse patient.[facility] Reason for Visit (unrecogniz ed section and content) Reason Onset Date Comments Refill Request 03/20/2022 Reason Comments Radiology NM Specialty Diagnoses / Procedures Referred By Contac t Referred To Contact [facility]LECULAR [facility] FUNCTIONAL IMAGING Diagnoses Precordial pain Procedures NM CARDIAC PERF STRESS/EXERCISE MYOCARDIAL SPECT MULTIPLE STUDIES Todd Nunn MD [address] [place] [address] Molecular [facility] Functional Imaging [address] [place] [address] Referral ID Status Reason Start Date Expiration Date V isits Requested Visits Authorized [id number] Closed Auto-Generate d Referral 04/11/2022 04/26/2023 1 [...] MYOCARDIAL SPECT MULTIPLE STUDIES Todd Nunn MD [address] [place] [id number] Molecular [facility] Imaging [address] [place] [address] Referral ID Status Reason Start Date Expiration Date V isits Requested Visits Authorized [id number] Closed Auto-Generate d Referral 01/08/2023 02/06/2024 1 1 Reason Comments Follow Up Reason Comments Exercise Prescription Specialty Diagnoses / Procedures Referred By Contac t Referred To Contact Diagnoses Physical deconditioning Procedures CARD PREV EXERCISE PRESCRIPTION OFFICE/OUTPATIENT NEW [facility]IGH MDM 60-74 MINUTES Juan F Portillo MD [address] [place] [id number] Referral ID Status Reason Start Date Expiration Date V isits Requested Visits Authorized [id number] Closed PCP Requested Referral 02/06/2023 02/06/2024 1 [...] Referred By Darnell collins Referred To Contact [facility] Diagnoses Dry eye Procedures CONSULT TO OPHTHALMOLOGY OFFICE/OUTPATIENT [facility] MDM 60 MINUTES Alexis Lott PA-C [address] [place] [address] [facility] [place] [address] [place] [address] Referral ID Status Reason Start Date Expiration Date V isits Requested Visits Authorized [id number] Closed PCP Requested Referral 12/09/2024 12/09/2025 1 1 Reason Comments PHOTOS TAKEN Reason Comments Orders Reason Onset Date Comments Refill Request 01/05/2025 Care Teams (unrecognized sec tion and content) Religious Educator Relationship Specialty Start Date End Date Onel Isaacs MD [address] [place] [id number] PCP - General 03/07/01 Kenyatta Dumont Referring Cardiology 05/29/18 Juan F Portillo MD Primary Staff Physician Cardiology 05/10/20 Religious Educator Relationship Specialty Start Date End Date Onel Isaacs MD [address] [place] [address] PCP - General 03/07/01 Kenyatta Dumont Referring Cardiology 05/29/18 Juan F Portillo MD Primary Staff Physician Cardiology 05/10/20 Religious Educator Relationship Specialty Start Date End Date Onel Isaacs MD [address] [place] [address] PCP - General 03/07/01 [facility] Referring Cardiology 05/29/18 Juan F Portillo MD Primary Staff Physician Cardiology 05/10/20 Religious Educator Relationship Specialty Start Date End Date Onel Isaacs MD [address] [place] [address] PCP - General 03/07/01 Tim [facility] Referring Cardiology 05/29/18 Juan F Portillo MD Primary Staff Physician Cardiology 05/10/20 Religious Educator Relationship Specialty Start Date End Date Onel Isaacs MD [address] [place] [address] PCP - General 03/07/01 Tim [facility] Referring Cardiology 05/29/18 Juan F Portillo MD Primary Staff Physician Cardiology 05/10/20 Religious Educator Relationship Specialty Start Date End Date Onel Isaacs MD [address] [place] [address] PCP - General 03/07/01 [facility] [address] [place] [address] Referring Cardiology 05/29/18 Juan F Portillo MD [address] [place] [address] Primary Staff Physician Cardiology 05/10/20 Religious Educator Relationship Specialty Start Date End Date Onel Isaacs MD [address] [place] [address] PCP - General 03/07/01 GarciaRayray dillardam [address] [place] [address] Referring Cardiology 05/29/18 Juan F Portillo MD [address] [place] [address] Primary Staff Physician Cardiology 05/10/20 Religious Educator Relationship Specialty Start Date End Date Onel Isaacs MD [address] [facility] [place] [address] PCP - General 03/07/01 GarciaRayray dillardam [address] [place] [address] Referring Cardiology 05/29/18 Juan F Portillo MD [address] [place] [address] Primary Staff Physician Cardiology 05/10/20 Religious Educator Relationship Specialty Start Date End Date Onel Isaacs MD [address] [facility] [place] [address] PCP - General 03/07/01 GarciaRayray dillardtham [address] [place] [address] Referring Cardiology 05/29/18 Jaun F Portillo MD [address] [place] [address] Primary Staff Physician Cardiology 05/10/20 Religious Educator Relationship Specialty Start Date End Date Onel Isaacs MD [address] [facility] [place] [address] PCP - General 03/07/01 GarciaRayray dillardmatt [address] [place] [address] Referring Cardiology 05/29/18 Juan F Portillo MD [address] [facility] [place] [address] Primary Staff Physician Cardiology 05/10/20 Onel Isaacs MD [address] [facility] [place] [address] Referring Family Medicine 01/08/23 Religious Educator Relationship Specialty Start Date End Date Onel Isaacs MD [address] [facility] [place] [address] PCP - General 03/07/01 Kenyatta Dumont [address] [place] [address] Referring Cardiology 05/29/18 Juan F Portillo MD [address] [facility] [place] [address] Primary Staff Physician Cardiology 05/10/20 Onel Isaacs MD [address] [facility] [place] [address] Referring Family Medicine 01/08/23 Religious Educator Relationship Specialty Start Date End Date Onel Isaacs MD [address] [place] [address] PCP - General 03/07/01 Kenyatta Dumont [address] [place] [address] Referring Cardiology 05/29/18 Juan F Portillo MD [address] [facility] [address] Primary Staff Physician Cardiology 05/10/20 Onel Isaacs MD [address] [facility] [place] [address] Referring Family Medicine 01/08/23 Religious Educator Relationship Specialty Start Date End Date Onel Isaacs MD [address] [facility] [place] [address] PCP - General 03/07/01 Kenyatta Dumont [address] [facility] [place] [address] Referring Cardiology 05/29/18 Juan F Portillo MD [address] [facility] [place] [address] Primary Staff Physician Cardiology 05/10/20 Onel Isaacs MD [address] [facility] [place] [address] Referring Family Medicine 01/08/23 Religious Educator Relationship Specialty Start Date End Date Onel Isaacs MD [address] [facility] [place] [address] PCP - General 03/07/01 Kenyatta Dumont [address] [place] [address] Referring Cardiology 05/29/18 Juan F Portillo MD [address] [facility] [place] [address] Primary Staff Physician Cardiology 05/10/20 Onel Isaacs MD [address] [place] [address] Referring Family Medicine 01/08/23 Religious Educator Relationship Specialty Start Date End Date Onel Isaacs MD [address] [facility] [place] [address] PCP - General 03/07/01 Tim [facility] [address] [facility] [place] [address] Referring Cardiology 05/29/18 Juan F Portillo MD [address] [facility] [place] [address] Primary Staff Physician Cardiology 05/10/20 Onel Isaacs MD [address] [place] [address] Referring Family Medicine 01/08/23 Religious Educator Relationship Specialty Start Date End Date Onel Isaacs MD [address] [place] [address] PCP - General 03/07/01 [facility] [address] [place] [address] Referring Cardiology 05/29/18 Juan F Portillo MD [address] [place] [address] Primary Staff Physician Cardiology 05/10/20 Onel Isaacs MD [address] [facility] [place] [address] Referring Family Medicine 01/08/23 Religious Educator Relationship Specialty Start Date End Date Onel Isaacs MD [address] [place] [address] PCP - General 03/07/01 Kenyatta Dumont [address] [facility] [address] Referring Cardiology 05/29/18 Juan F Portillo MD [address] [facility] [address] Primary Staff Physician Cardiology 05/10/20 Onel Isaacs MD [address] [facility] [address] Referring Family Medicine 01/08/23 Religious Educator Relationship Specialty Start Date End Date Onel Isaacs MD [address] [place] [address] PCP - General 03/07/01 Kenyatta Dumont [address] [facility] [address] Referring Cardiology 05/29/18 Juan F Portillo MD [address] [facility] [address] Primary Staff Physician Cardiology 05/10/20 Onel Isaacs MD [address] [facility] [place] [address] Referring Family Medicine 01/08/23 Onel Isaacs MD [address] [place] [address] Referring Family Medicine 06/19/23 Religious Educator Relationship Specialty Start Date End Date Onel Isaacs MD [address] [place] [address] PCP - General 03/07/01 Kenyatta Dumont [address] [place] [address] Referring Cardiology 05/29/18 Juan F Portillo MD [address] [place] [address] Primary Staff Physician Cardiology 05/10/20 Onel Isaacs MD [address] [place] [address] Referring Family Medicine 01/08/23 Onel Isaacs MD [address] [place] [address] Referring Family Medicine 06/19/23 Religious Educator Relationship Specialty Start Date End Date Onel Isaacs MD [address] [place] [address] PCP - General 03/07/01 Kenyatta Dumont [address] [place] [address] Referring Cardiology 05/29/18 Juan F Portillo MD [address] [place] [address] Primary Staff Physician Cardiology 05/10/20 Onel Isaacs MD [address] [place] [address] Referring Family Medicine 01/08/23 Onel Isaacs MD [address] [place] [address] Referring Family Medicine 06/19/23 Religious Educator Relationship Specialty Start Date End Date Onel Isaacs MD [address] [place] [address] PCP - General 03/07/01 Kenyatta Dumont [address] [place] [address] Referring Cardiology 05/29/18 Juan F Portillo MD [address] [place] [address] Primary Staff Physician Cardiology 05/10/20 Onel Isaacs MD [address] [place] [address] Referring Family Medicine 01/08/23 Onel Isaacs MD [address] [place] [address] Referring Family Medicine 06/19/23 Religious Educator Relationship Specialty Start Date End Date Onel Isaacs MD [address] [place] [address] PCP - General 03/07/01 Kenyatta Dumont [address] [place] [address] Referring Cardiology 05/29/18 Juan F Portillo MD [address] [place] [address] Primary Staff Physician Cardiology 05/10/20 Onel Isaacs MD [address] [place] [address] Referring Family Medicine 01/08/23 Onel Isaacs MD [address] [place] [address] Referring Family Medicine 06/19/23 Religious Educator Relationship Specialty Start Date End Date Onel Isaacs MD [address] [place] [address] PCP - General 03/07/01 Kenyatta Dumont [address] [place] [address] Referring Cardiology 05/29/18 Juan F Portillo MD [address] [place] [address] Primary Staff Physician Cardiology 05/10/20 Onel Isaacs MD [address] [place] [address] Referring Family Medicine 01/08/23 Onel Isaacs MD [address] [place] [address] Referring Family Medicine 06/19/23 Religious Educator Relationship Specialty Start Date End Date Onel Isaacs MD [address] [place] [address] PCP - General 03/07/01 Kenyatta Dumont [address] [place] [address] Referring Cardiology 05/29/18 Juan F Portillo MD [address] [place] [address] Primary Staff Physician Cardiology 05/10/20 Onel Isaacs MD [address] [place] [address] Referring Family Medicine 01/08/23 Onel Isaacs MD [address] [place] [address] Referring Family Medicine 06/19/23 Religious Educator Relationship Specialty Start Date End Date Onel Isaacs MD [address] [place] [address] PCP - General 03/07/01 Kenyatta Dumont [address] [place] [address] Referring Cardiology 05/29/18 Juan F Portillo MD [address] [place] [address] Primary Staff Physician Cardiology 05/10/20 Onel Isaacs MD [address] [place] [address] Referring Family Medicine 01/08/23 Onel Isaacs MD [address] [place] [address] Referring Family Medicine 06/19/23 Religious Educator Relationship Specialty Start Date End Date Onel Isaacs MD [address] [place] [address] PCP - General 03/07/01 Kenyatta Dumont [address] [place] [address] Referring Cardiology 05/29/18 Juan F Portillo MD [address] [place] [address] Primary Staff Physician Cardiology 05/10/20 Onel Isaacs MD [address] [place] [address] Referring Family Medicine 01/08/23 Onel Isaacs MD [address] [place] [address] Referring Family Medicine 06/19/23 Religious Educator Relationship Specialty Start Date End Date Onel Isaacs MD [address] [place] [address] PCP - General 03/07/01 Kenyatta Dumont [address] [place] [address] Referring Cardiology 05/29/18 Juan F Portillo MD [address] [place] [address] Primary Staff Physician Cardiology 05/10/20 Onel Isaacs MD [address] [place] [address] Referring Family Medicine 01/08/23 Onel Isaacs MD [address] [place] [address] Referring Family Medicine 06/19/23 Religious Educator Relationship Specialty Start Date End Date Onel Isaacs MD [address] [place] [address] PCP - General 03/07/01 Kenyatta Dumont [address] [place] [address] Referring Cardiology 05/29/18 Juan F Portillo MD [address] [place] [address] Primary Staff Physician Cardiology 05/10/20 Onel Isaacs MD [address] [place] [address] Referring Family Medicine 01/08/23 Onel Isaacs MD [address] [place] [address] Referring Family Medicine 06/19/23 Religious Educator Relationship Specialty Start Date End Date Onel Isaacs MD [address] [facility] [place] [address] PCP - General Family Medicine 06/20/23 Religious Educator Relationship Specialty Start Date End Date Onel Isaacs MD [address] [place] [address] PCP - General 03/07/01 Tim Rayraymatt [address] [place] [address] Referring Cardiology 05/29/18 Juan F Portillo MD [address] [place] [address] Primary Staff Physician Cardiology 05/10/20 Onel Isaacs MD [address] [place] [address] Referring Family Medicine 01/08/23 Onel Isaacs MD [address] [place] [address] Referring Family Medicine 06/19/23 (unrecognized sect ion and content) No Status Records FoundNo Status Records FoundNo Status Records Found INFORMATION SOURCE (unrecogn ized section and content) DATE CREATED AUTHOR 08/16/2024 [facility] DATE CREATED AUTHOR AUTHOR'S ORGANIZ ATION 01/26/2025 [facility] DATE CREATED AUTHOR AUTHOR'S ORGANIZ ATION 02/05/2025 [facility] FOR RECORDS PERTAINING TO PATIENTS WHO [...] BE BASED ON THE PRIMARY CLINICAL RECORDS. [employer] [facility] provides no warranty or guarantee of the accuracy or completeness of information in this document.
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
[2025-03-08] MEDS: ADACEL DIPH,PERTUSS(ACELL),TET VAC/PF 0.5 ML ADULT SYRINGE IM (22:03)
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
[2025-03-08] MEDS: LIDOCAINE HCL 1% 100 MG/10 ML MDV INJ (22:32)
[2025-03-09 01:05] VITALS: BP 145/74; PULSE 75; O2SAT 99
== END 2025-03-09 01:08 | disposition home or self-care (01) ==
PROVIDERS: Emergency Provider Internal Medicine; PCP Family Medicine
DX: S81.812A Laceration without foreign body, left lower leg, initial encounter (principal); S80.12XA Contusion of left lower leg, initial encounter; S80.211A Abrasion, right knee, initial encounter; V18.0XXA Pedal cycle driver injured in noncollision transport accident in nontraffic accident, initial encounter; Z23 Encounter for immunization
CPT/HCPCS: 12001; 73590; 90471; 90715; 99284

== ENCOUNTER 2025-03-19 15:10 | Outpatient (OUT) | payer MEDICARE, OTHER, SELFPAY ==
--- NOTE | 2025-03-19 15:13 | CT_ITS ---
The [address] [address] Patient Name: DEBORAH BARROW MRN: [id number] date: 1945 Sex: M Assigned Patient Location: CT Current Patient Location: Accession/Order Number: [id number] Exam Date: 03/22/2025 12:30 Report Date: 03/22/2025 12:33 At the request of: ONEL ISAACS MD Procedure: CT lower leg LT wo con CT left lower leg WITHOUT CONTRAST : CLINICAL HISTORY: ABRASION T14.8XXA COMPARISON: None TECHNIQUE: Spiral axial unenhanced images were obtained through the left lower leg. Sagittal, coronal reconstructions were also reviewed. This CT exam was performed using one or more following dose reduction techniques: Automated exposure control, adjustment of the mA and/or kV according to patient size, or use of iterative reconstruction technique. FINDINGS: Distal soft tissue swelling/thickening is noted. No measurable fluid collection is seen. No soft tissue gas. No radiopaque foreign body. No fracture. Knee joint and ankle mortise demonstrate degenerative change. Musculature appears unremarkable. Arterial vasculature demonstrates calcification. CT/CT lower leg LT wo con IMPRESSION: DISTAL SOFT TISSUE SWELLING/THICKENING WITHOUT ACUTE BONY PROCESS. Impression dictated by: Michael Hale Jr., D.O. 03/22/2025 12:33 PM Dictation Location: [place] [address] Electronically authenticated by: [id number] Y Date: 03/22/2025 12:33
== END 2025-03-19 15:11 | disposition home or self-care (01) ==
LOC: CT 15:11
PROVIDERS: PCP Family Medicine; Visit Provider Family Medicine
DX: T14.8XXA Other injury of unspecified body region, initial encounter (principal); R60.0 Localized edema
CPT/HCPCS: 73700

== ENCOUNTER 2025-06-04 15:33 | Outpatient (OUT) | payer MEDICARE, OTHER, SELFPAY ==
--- OUTSIDE RECORDS SUMMARY | 2025-04-26 07:07 | XMS_ITS ---
Author Organization The [facility] [place] [facility] [place] Address [address] [place] [place] [address] Care Team Providers Care Manager [employer]mer [employer]eral Director Name Role Phone Edwin Pearl Primary Care Provider REASON FOR VISIT ortho notes Encounters Encounter Location Date Provider Diagnosis [facility] [address] [place] [address] 04/26/2025 Edwin Pearl Plan Of Treatment No Information Progress Notes * Wally WOODALL ADOB:1945 (79 yo M)Acc No.[id number]:04/26/2025 Patient: Wally ZAVALETA :1945 A ge:79 Y S ex:Male [address] [place] [address] * true * Date: Generated for Jeffrey tracey/Juan F/eTransmitting on: 0 06/04/2025 03:39 PM EDT
--- OUTSIDE RECORDS SUMMARY | 2025-06-03 06:15 | XMS_ITS ---
Author Organization [facility] in [place] Address [address] [place] [address] Care Team Providers Care Mobile Marketing Manager Name Role Phone Edwin Pearl Primary Care Provider Allergies Allergen (clinical drug ingredient) Drug/Non Drug Allergy documented on EMR Reaction Allergy Type Onset Date Status dust (uncoded) Unknown Allergy Activ e Pollen pollens (uncoded) Unknown Allergy Ac tive lisinopril Lisinopril Unknown Drug Allergy Activ e REASON FOR VISIT PT at [facility]- made him sore just all over- made worse- so stopped it, Eyelid surgery on hold d/t transportation, Dizziness comes and goes- little worse now- little lightheaded- feels unsteady at times Medications Medication SIG (Take, Route, Frequency, Duration) Notes Start Date End Date Status Ferrous Sulfate 325 (65 Fe) MG 1 tablet Orally BID 10/01/2024 Active Irbesartan 300 MG 1 tablet Orally Once a day Active calcium citrate 2 capsules orally BID Active CoQ10 Active Lasix 20 MG 1 tablet Orally Once a day for 90 days 06/08/2024 Active Vitamin D3 50 MCG (1999 UT) 1 capsule Orally Once a day Active Aspirin 81 81 MG 1 tablet Orally Once a day Active Soma 350 MG 1 tablet as needed Orally bid for 30 days 01/06/2024 Active B12 Fast Dissolve 5000 MCG 1 tablet Orally Daily Active tiZANidine HCl 4 MG 2 tablets Orally at bedtime for 15 01/07/2024 Active Prostate Support Act keo Simvastatin 20 MG 1 tablet in the evening Orally Once a day for 90 days 10/01/2024 Active M-Vit Multiple Vitamins with Minerals 1 tablet DAILY Active Metoprolol Succinate 50 MG 1 capsule Orally Once a day [facility] added Active Social History Tobacco Use: Social History Observation Description Date Details (start date - stop date) Former Smoker 11/25/1964 - 11/25/1990 Tobacco Use/Smoking Question Answer Notes Patient is a former smoker When did you start smoking? 11/25/1964 When did you stop smoking? 11/25/1990 How long has it been since you last smoked? > 10 years Vital Signs Blood pressure systolic 138 mm Hg 06/03/20 25 Blood pressure diastolic 90 mm Hg 025 Height 70 in 06/03/2025 Weight 186.4 lbs 06/03/2025 BMI 26.74 kg/m2 06/03/2025 Encounters Encounter Location Date Provider Diagnosis [id number] [place] [address] 06/03/2025 Edwin Pearl Hypertension I10 Assessments Encounter Date Diagnosis (ICD Code) Assessment Notes Treatment Notes Treatment Clinical Notes Section Notes 06/03/2025 Hypertension (ICD-10 - I10) Plan Of Treatment No Information Progress Notes * Wally WOODALL ADOB:1945 (79 yo M)Acc No.[id number]:06/03/2025 UNLOCKED PROGRESS NOTE Progress Note Patient: Wally ZAVALETA Provider: Destinee Pearl ([facility])MD :1945 A ge:79 Y S ex:Male Date:06/03/2025 Address:[address] [place], [place] [id number] Check In:10:21 AM ESTCheck O ut:11:30 AM EST Subjective: * Chief Complaints: * 1 . PT at [facility]- made him sore just all over- made worse- so stopped it. 2. Eyelid surgery on hold d/t transportation. 3. Dizziness comes and goes- little worse now- little lightheaded- feels unsteady at times. * HPI: G eneral: dizzines - more lightheaded - not tunnel vision - no syncope. * ROS: E ENT: hearing changes d enies. v isual changes d enies.?non-healing mouth sores d enies. s wollen glands or neck lumps d enies. h oarseness d enies. s ore throat d enies. d ifficulty swallowing d enies. n ose bleeds d enies. n poly congestion d enies. e ar ache d enies. e ar discharge?denies. r inging in ears d enies. l ight sensitivity d enies. e ye pain d enies. b lurring d enies. e ye irritation d enies. d ouble vision d enies.?vision loss d enies. G eneral/Constitutional: Sweats: D enies. F atigue d enies. S leep problems d enies. A norexia d enies. M alaise d enies. W eight loss d enies.?Fatigue or Weakness d enies. F ever or Chills d enies. C ardiovascular: Shortness of Breath w/lying flat d enies. L ightheadedness/dizziness d enies. C hest tightness/ heavy pressure d enies. S welling of legs, ankles, or feet d enies. W aking up with shortness of breath d enies. C hest pain denies. P alpitations d enies. W eight gain d enies. R espiratory: Chronic or frequent cough d enies. C oughing up blood?denies. D ifficulty breathing d enies. P roductive cough d enies. S noring?denies. S hortness of breath that awakens from sleep (PND) d enies. C hest pain d enies. S putum production d enies. W heezing d enies. M usculoskeletal: Joint pain d enies. J oint Fluid d enies. B ack pain d enies. K nee pain d enies. N hubert pain d enies. J oint Stiffness d enies. M uscle cramps d enies. W eakness of muscles d enies. A rthritis d enies. M uscle aches d enies. P ain in shoulder(s) d enies. S wollen joints d enies. * Medical History: H istory of generalized anxiety disorder, History of arthritis, Chest wall pain, Chest pain, Diverticulosis, Diplopia, Chronic obstructive pulmonary disease with (acute) exacerbation, Incisional hernia, Aortic valve replaced, AF (paroxysmal atrial fibrillation), Gastric ulcer, Headache, Other iron deficiency anemia, Internal hemorrhoids, Colon polyps, Warthin tumor, Palpitations, Knee pain, Dyspnea, Disc disease, degenerative, cervical, Eczema, Hypertension, Ganglion cyst, Seborrheic keratosis, Umbilical hernia, Plantar fasciitis, Osteoarthritis. * Surgical History: H istory of cholecystectomy , History of hernia repair Umbilical , History of sinus surgery , Right Knee Surgery , Left & Right rotator Cuff , Open Heart Surgery- Aortic Valve Replacement 07/2018. * Hospitalization/Major Diagno stic Procedure: S ee above . * Family History: F ather: , CVA, diagnosed with Other malignant neoplasm of unspecified site. M other: , Alzheimers, diagnosed with Unspecified essential hypertension. S ister(s): , alzheimer's dementia, ALS. M igrated Family History:: Father in poor health Prostate Cancer CVA;Chronic disabling diseases ALS Sister;. 3 sister(s) . . dad- prostate cancer, CVA mother, sister- Alzheimers. * Social History: T obacco Use: T obacco Use/Smoking P atient is a f ormer smoker W hen did you start smoking? 0 11/25/1964 W hen did you stop smoking? 0 11/25/1990 H ow long has it been since you last smoked??> 10 years * Medications: T aking Aspirin 81(Aspirin) 81 MG Tablet Chewable 1 tablet Orally Once a day , Taking B12 Fast Dissolve(Cyanocobalamin) 5000 MCG Tablet Disintegrating 1 tablet Orally Daily , Taking calcium citrate 2 capsules orally BID , Taking CoQ10 , Taking Ferrous Sulfate 325 (65 Fe) MG Tablet 1 tablet Orally BID , Taking Irbesartan 300 MG Tablet 1 tablet Orally Once a day , Taking Lasix(Furosemide) 20 MG Tablet 1 tablet Orally Once a day , Taking M-Vit Multiple Vitamins with Minerals tablet 1 tablet DAILY , Taking Metoprolol Succinate 50 MG Capsule ER 24 Hour Sprinkle 1 capsule Orally Once a day , Notes to Pharmacist: [facility] added, Taking Prostate Support , Taking Simvastatin 20 MG Tablet 1 tablet in the evening Orally Once a day , Taking Soma(Carisoprodol) 350 MG Tablet 1 tablet as needed Orally bid , Taking tiZANidine HCl 4 MG Tablet 2 tablets Orally at bedtime , Taking Vitamin D3 50 MCG (1999) Capsule 1 capsule Orally Once a day , Medication List reviewed and reconciled with the patient * Allergies: d ust: Allergy, pollens: Allergy, Lisinopril - Criticality High. Objective: * Vitals: W t:186.4lbs, Ht: 70 in, BP:138/90mm Hg, BMI:26.74Index, Ht-cm: 177.8 cm, Wt-k.55 kg. * Examination: P hysical Exam: GENERAL: w ell developed, well nourished, in no acute distress. HEAD: n ormocephalic/atraumatic. EYES: p upils equal, round and reactive to light, conjunctivae and sclerae normal. EARS: n o deformity or lesion of external ear, canals and TM appear normal bilaterally, TM's intact, not inflamed with normal light reflex, hearing grossly normal to conversational speech. NOSE: n o deformity, discharge, inflammation, or lesions.? MOUTH: m ucous membranes moist, normal oropharynx and posterior pharynx without lesions or exudates, tongue normal, dentition normal. NECK: n hubert supple, no masses or palpable cervical nodes, trachea midline, thyroid without nodules, masses, tenderness, or enlargement. CHEST: n o chest wall deformity, no chest wall tenderness.? LUNGS: n ormal respiratory effort and clear to auscultation, no wheezes, rales, or rhonchi, good air exchange. CARDIO: r egular rate and rhythm, normal S1 and S2, nor murmur, rub, or gallop. PULSES: n ormal capillary refill. ABDOMEN: s oft, non-distended, non-tender, no masses. MUSCULOSKELETAL: n o deformity or scoliosis noted, normal range of motion, joints normal, no erythema, edema, effusion, or ecchymosis. EXTREMITY: n o clubbing, cyanosis, edema, or deformity with normal ROM in both upper and lower bilateral extremities. NEUROLOGIC: g rossly normal. SKIN: n o rashes, ulcerations, or suspicious lesions. LYMPH NODES: n o cervical adenopathy, nodes normal. MENTAL STATUS: a lert and oriented x3, normal mood and affect. Assessment: * Assessment: 1. H ypertension - I10 (Primary) Plan: * Treatment: * Preventive Medicine: Screenings/Counseling: B KS ACTION PLAN Above Normal BMI Follow-up D ietary management education, guidance, and counseling * * Electronic signature of Edwin Pearl MD, [phone] on 06/04/2025 at 03:38 PM EDT Sign off status: Pending Visit Status: C HK (Check Out) * Provider: Destinee Pearl ([facility])MD Date: 06/03/2025 Generated for Printi ng/Faxing/eTransmitting on: 06/04/2025 03:38 PM EDT History and Physical Notes * HPI (History of Present Illness) Category Sub-Category Detail Notes Category Not es General dizzines - more lightheaded - not tunnel vision - no syncope Examination Category Sub-Category Detail Notes Category Not es Physical Exam GENERAL: well developed, well nourished, in no acute distress HEAD: normocephalic/atraum atic EYES: pupils equal, round and reactive to light, conjunctivae and sclerae normal EARS: no deformity or lesi on of external ear, canals and TM appear normal bilaterally, TM's intact, not inflamed with normal light reflex, hearing grossly normal to conversational speech NOSE: no deformity, discha rge, inflammation, or lesions MOUTH: mucous membranes enrique st, normal oropharynx and posterior pharynx without lesions or exudates, tongue normal, dentition normal NECK: neck supple, no mass es or palpable cervical nodes, trachea midline, thyroid without nodules, masses, tenderness, or enlargement CHEST: no chest wall deform ity, no chest wall tenderness LUNGS: normal respiratory e ffort and clear to auscultation, no wheezes, rales, or rhonchi, good air exchange CARDIO: regular rate and rhy thm, normal S1 and S2, nor murmur, rub, or gallop PULSES: normal capillary ref ill ABDOMEN: soft, non-distended, non-tender, no masses RECTAL: MUSCULOSKELETAL: no deformity or scol iosis noted, normal range of motion, joints normal, no erythema, edema, effusion, or ecchymosis EXTREMITY: no clubbing, cyanosi s, edema, or deformity with normal ROM in both upper and lower bilateral extremities NEUROLOGIC: grossly normal SKIN: no rashes, ulceratio ns, or suspicious lesions LYMPH NODES: no cervical adenopat hy, nodes normal MENTAL STATUS: alert and oriented x 3, normal mood and affect
--- OUTSIDE RECORDS SUMMARY | 2025-06-03 07:18 | XMS_ITS ---
Author Organization [facility] in [place] Address [address] [place] [address] Care Team Providers Care Mangle Tender Cloth Name Role Phone DylanEdwin zapata Primary Care Provider [phone] REASON FOR VISIT lab from [facility] Encounters Encounter Location Date Provider Diagnosis [facility] [address] [place] [address] 06/03/2025 Edwin Pearl Screening for prosta te cancer Z12.5 Assessments Encounter Date Diagnosis (ICD Code) Assessment Notes Treatment Notes Treatment Clinical Notes Section Notes 06/03/2025 Screening for prostate cancer (ICD-10 - Z12.5) Plan Of Treatment Pending Test Test Name Order Date PSA, SCREENING 06/03/2025 Progress Notes * JOSE C Wally ADOB:1945 (79 yo M)Acc No.[id number]:06/03/2025 Patient: Wally ZAVALETA :1945 A ge:79 Y S ex:Male Address:[address] [facility] [place] [address] Subjective: * Chief Complaints: * l ab from [facility] * Medical History: * Surgical History: * Hospitalization/Major Diagno stic Procedure: * Medications: Objective: * Vitals: * Physical Examination: Assessment: * Assessment: 1. S creening for prostate cancer - Z12.5 (Primary) Plan: * Treatment: * Procedure Codes: * true * Date: Generated for Printi ng/Faxing/eTransmitting on: 0 06/04/2025 03:39 PM EDT
--- OUTSIDE RECORDS SUMMARY | 2025-06-04 15:38 | XMS_ITS | Encounter Summary ---
Author Organization [facility] Address [address] [place] [address] Care Team Providers Care Pulmonary Care Nurse Name Role Phone Aniceto Pearl MD Primary Care Provider [phone] Kenyatta Dumont Unavailable Juan F Mckinney MD Unavailable Aniceto Pearl MD Unavailable [phone] Aniceto Pearl MD Unavailable [phone] Source Comments In the event this information is protected by the Federal Confidentiality of Alcohol and Drug AbusePatient Records regulations: The Federal rules restrict any use of the information to criminally investigate or prosecute any alcohol or drug abuse patient.[facility] Encounter Details Date Type Department Care Team (Late st Contact Info) Description 08/15/2020 Patient Msg Preventive Cardiology [address] [place], [place] [id number] Provider, [facility]Issing bloodwork Social History Tobacco Use Types Packs/Day Years Used Date Smoking Tobacco: Former Cigarettes 1.5 25 0 08/11/1965 - 08/11/1990 Smokeless Tobacco: Never Alcohol Use Standard Drinks/Week Comments Yes 6 (1 standard drink = 0.6 oz pur e alcohol) social PHQ-2 Answer Date Recorded PHQ2 Score 0 08/15/2018 Sex and Gender Information Value Date Recorded Sex Assigned at Male 07/07/2019 6:25 PM EDT Legal Sex Male 9:23 AM EST Gender Identity Male 07/07/2019 6:25 PM EDT Sexual Orientation Straight 07/07/2019 6: 25 PM EDT Occupation Industry Job Start Date Job End Date retired Not on file Not on file Not on file COVID-19 Exposure Response Date Recorded In the last month, have you been in contact with someone who was confirmed or suspected to have Coronavirus / COVID-19? No / Unsure 08/17/2020 10:16 AM EDT documented as of this encounter Functional Status * Are you deaf or do you have serious difficulty hearing? Answer Date of Assessment Author No 08/20/2018 11:35 AM EDT Delisa Masters RN * Are you blind or do you have serious difficulty seeing, even when wearing glasses? Answer Date of Assessment Author No 08/20/2018 11:35 AM EDT Delisa Masters RN * Do you have serious difficulty walking or climbing stairs? Answer Date of Assessment Author No 08/20/2018 11:35 AM TARYNT Delisa Masters RN * Do you have difficulty dressing or bathing? Answer Date of Assessment Author No 08/20/2018 11:35 AM EDT Delisa Masters RN * Because of a physical, mental, or emotional condition, do you have difficulty doing errands alone such as visiting a doctor's office or shopping? Answer Date of Assessment Author No 08/20/2018 11:35 AM TARYNT Delisa Masters RN documented as of this encounter Mental Status * Because of a physical, mental, or emotional condition, do you have serious difficulty concentrating, remembering, or making decisions? 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], Dermatochalasis of both upper eyelids [H02.831, H02.834] 07/16/2025 11:30 AM EDT - 07/16/2025 2:00 PM EDT Surgery Admitting [address] [place] [address] [place] [address] [place] [address] [place] 07/29/2025 11:00 AM EDT Office Visit Plastic Surgery [address] [address] Savanah Palomares, ISIDRO.[employer] [address] [place] [address] post op 10/13/2025 10:45 AM EST Procedure Cardiology [address] [place] [address] Chest pain, unspecified type [R07.9] 10/13/2025 11:15 AM EST Office Visit [facility] [address] [place] [address] Santiago Gonzalez MD [address] [place] [address] New Consult Scheduled Procedures Name Priority Associated Diagnoses Date/Ti me BROWLIFT Brow ptosis, bilateral Dermatochalasis of both upper eyelids 07/16/2025 11:30 AM EDT BLEPHAROPLASTY UPPER BILATERAL Brow ptosis, bilateral Dermatochalasis of both upper eyelids 07/16/2025 11:30 AM EDT documented as of this encounter Visit Diagnoses Not on filedocumented in this encounter Care Teams Pulmonary Care Nurse Relationship Specialty Start Date End Date Aniceto Pearl MD [address] [facility] [place] [address] PCP - General 03/07/01 Kenyatta Dumont [address] [facility] [place] [address] Referring Cardiology 05/29/18 Juan F Mckinney MD [address] [facility] [place] [address] Primary Staff Physician Cardiology 05/10/20 Aniceto Pearl MD [address] [facility] [place] [address] Referring Family Medicine 01/08/23 Aniceto Pearl MD [address] [facility] [place] [address] Referring Family Medicine 06/19/23 documented as of this encounter
--- OUTSIDE RECORDS SUMMARY | 2025-06-04 15:38 | XMS_ITS | Encounter Summary ---
Author Organization [facility] Address [address] [place] [address] Care Team Providers Care Wardrobe Specialist Name Role Phone Aniceto Pearl MD Primary Care Provider [phone] Kenyatta Dumont Unavailable Juan F Mckinney MD Unavailable Aniceto Pearl MD Unavailable [phone] Aniceto Pearl MD Unavailable [phone] Source Comments In the event this information is protected by the Federal Confidentiality of Alcohol and Drug AbusePatient Records regulations: The Federal rules restrict any use of the information to criminally investigate or prosecute any alcohol or drug abuse patient.[facility] Encounter Details Date Type Department Care Team (Late st Contact Info) Description 08/19/2020 Get Medical Advice Preventive Cardiology [address] [place] [address] Clarisse Gee, CHIEF LIBRARIAN WORK WITH BLIND.RUBBER GASKET INSPECTOR TRIMMER [address] [place] [id number] RE: Medication Question (Not Renewal) Social History Tobacco Use Types Packs/Day Years [...] of Assessment Author No 08/20/2018 11:35 AM Delisa [place] RN * Are you blind or do you have serious difficulty seeing, even when wearing glasses? Answer Date of Assessment Author No 08/20/2018 11:35 AM Delisa [place] RN * Do you have serious difficulty walking or climbing stairs? Answer Date of Assessment Author No 08/20/2018 11:35 AM Delisa [place] RN * Do you have difficulty dressing or bathing? Answer Date of Assessment Author No 08/20/2018 11:35 AM Delisa [place] RN * Because of a physical, mental, or emotional condition, do you have difficulty doing errands alone such as visiting a doctor's office or shopping? 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], Dermatochalasis of both upper eyelids [H02.831, H02.834] 07/16/2025 11:30 AM EDT - 07/16/2025 2:00 PM EDT Surgery Admitting [address] [place] [address] Tisha Lowery MD [address] [place] [address] BROWLIFT 07/29/2025 11:00 AM EDT Office Visit Plastic Surgery [address] [address] Savanah Palomares APRN.RUBBER GASKET INSPECTOR TRIMMER [address] [place] [address] post op 10/13/2025 10:45 AM EST Procedure Cardiology [address] [place] [address] Chest pain, unspecified type [R07.9] 10/13/2025 11:15 AM EST [facility] Visit [facility] [address] [place] [address] Santiago Gonzalez MD [address] [place] [address] New Consult Scheduled Procedures Name Priority Associated Diagnoses Date/Ti me BROWLIFT Brow ptosis, bilateral Dermatochalasis of both upper eyelids 07/16/2025 11:30 AM EDT BLEPHAROPLASTY UPPER BILATERAL Brow ptosis, bilateral Dermatochalasis of both upper eyelids 07/16/2025 11:30 AM EDT documented as of this encounter Visit Diagnoses Not on filedocumented in this encounter Care Teams Wardrobe Specialist Relationship Specialty Start Date End Date Aniceto Pearl MD [address] [place] [address] PCP - General 03/07/01 Kenyatta Dumont [address] [place] [address] Referring Cardiology 05/29/18 Juan F Mckinney MD [address] [place] [address] Primary Staff Physician Cardiology 05/10/20 Aniceto Pearl MD [address] [place] [address] Referring Family Medicine 01/08/23 Aniceto Pearl MD [address] [place] [address] Referring Family Medicine 06/19/23 documented as of this encounter
--- OUTSIDE RECORDS SUMMARY | 2025-06-04 15:39 | XMS_ITS | Encounter Summary ---
Author Organization [facility] Address [address] [place] [address] Care Team Providers Care Test Department Helper Name Role Phone Aniceto Pealr MD Primary Care Provider [phone] Kenyatta Dumont Unavailable Juan F Mckinney MD Unavailable Aniceto Pearl MD Unavailable [phone] Aniceto Pearl MD Unavailable [phone] Source Comments In the event this information is protected by the Federal Confidentiality of Alcohol and Drug AbusePatient Records regulations: The Federal rules restrict any use of the information to criminally investigate or prosecute any alcohol or drug abuse patient.[facility] Encounter Details Date Type Department Care Team (Late st Contact Info) Description 05/26/2021 Patient Msg Preventive Cardiology [address] [place] [address] Joyce Berg APRN.RESIDENTIAL CONCIERGE [address] [place] [address] Labs and echo Social History Tobacco Use Types Packs/Day Years Used Date Smoking Tobacco: Former Cigarettes 1.5 25 0 08/11/1965 - 08/11/1990 Smokeless Tobacco: Never Alcohol Use Standard Drinks/Week Comments Yes 6 (1 standard drink = 0.6 oz pur e alcohol) social PHQ-2 Answer Date Recorded PHQ2 Score 0 08/15/2018 Area Deprivation Index Answer Date Jimmie rded National Score (1-100), lower number is lower ri sk Not on file 10/30/2020 State Score (1-10), lower number is lower risk N ot on file 10/30/2020 Data from: https://www.neighborhoodatlas.medicine.[facility]/. Last address used for calculation Not on file 10/30/2020 Sex and Gender Information Value Date Recorded [...] have Coronavirus / COVID-19? No / Unsure 05/24/2021 1:49 PM EDT documented as of this encounter Functional [...] 08/20/2018 11:35 AM EDT Delisa Masters RN documented as of this encounter Mental Status * Because of a physical, mental, or emotional condition, do you have serious difficulty concentrating, remembering, or making decisions? 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], Dermatochalasis of both upper eyelids [H02.831, H02.834] 07/16/2025 11:30 AM EDT - 07/16/2025 2:00 PM EDT Surgery Admitting [address] [place] [address] Tisha Lowery MD [address] [place] [address] BROWLIFT 07/29/2025 11:00 AM EDT Office Visit Plastic Surgery [address] [address] Savanah Palomares APRN.RESIDENTIAL CONCIERGE [address] [place] [address] post op 10/13/2025 10:45 AM EST Procedure Cardiology [address] [place] [address] Chest pain, unspecified type [R07.9] 10/13/2025 11:15 AM EST [facility] [address] [place] [address] Santiago Gonzalez MD [address] [place] [address] New Consult Scheduled Procedures Name Priority Associated Diagnoses Date/Ti me BROWLIFT Brow ptosis, bilateral Dermatochalasis of both upper eyelids 07/16/2025 11:30 AM EDT BLEPHAROPLASTY UPPER BILATERAL Brow ptosis, bilateral Dermatochalasis of both upper eyelids 07/16/2025 11:30 AM EDT documented as of this encounter Visit Diagnoses Not on filedocumented in this encounter Care Teams Test Department Helper Relationship Specialty Start Date End Date Aniceto Pearl MD [address] [place] [address] PCP - General 03/07/01 Kenyatta Dumont [address] [place] [address] Referring Cardiology 05/29/18 Juan F Mckinney MD [address] [place] [address] Primary Staff Physician Cardiology 05/10/20 Aniceto Pearl MD [address] [place] [address] Referring Family Medicine 01/08/23 Aniceto Pearl MD [address] [place] [address] Referring Family Medicine 06/19/23 documented as of this encounter
--- OUTSIDE RECORDS SUMMARY | 2025-06-04 15:39 | XMS_ITS | Encounter Summary ---
Author Organization [facility] Address [address] [place] [address] Care Team Providers Care Drafting Technician Name Role Phone Aniceto Pearl MD Primary Care Provider [phone] Kenyatta Dumont Unavailable Juan F Mckinney MD Unavailable Aniceto Pearl MD Unavailable [phone] Aniceto Pearl MD Unavailable [phone] Source Comments In the event this information is protected by the Federal Confidentiality of Alcohol and Drug AbusePatient Records regulations: The Federal rules restrict any use of the information to criminally investigate or prosecute any alcohol or drug abuse patient.[facility] Encounter Details Date Type Department Care Team (Late st Contact Info) Description 04/09/2022 [place] [address] Provider, Ccf Questionnaire Submission Social History Tobacco Use Types Packs/Day Years [...] N ot on file 10/30/2020 Data from: https://www.neighborhoodatlas.medicine.[facility]/. Last address used for calculation Not on [...] Exposure Response Date Recorded In the last 10 days, have yo u been in contact with someone who was confirmed or suspected to have Coronavirus/COVID-19? No / Unsure 04/11/2022 8:50 AM EDT documented as of this encounter Functional Status * Are you deaf or do you have serious difficulty hearing? 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], Dermatochalasis of both upper eyelids [H02.831, H02.834] 07/16/2025 11:30 AM EDT - 07/16/2025 2:00 PM EDT Surgery Admitting [address] [place] [address] Tisha Lowery MD [address] [place] [address] BROWLIFT 07/29/2025 11:00 AM EDT Office Visit Plastic Surgery [address] [place] [address] Savanah Palomares APRN.PENCIL SORTER [address] [place] [address] post op 10/13/2025 10:45 AM EST Procedure Cardiology [address] [place] [address] Chest pain, unspecified type [R07.9] 10/13/2025 11:15 AM EST [facility] [address] [place] [address] Santiago Gonzalez MD [address] [place] [address] New Consult Scheduled Procedures Name Priority Associated Diagnoses Date/Ti me BROWLIFT Brow ptosis, bilateral Dermatochalasis of both upper eyelids 07/16/2025 11:30 AM EDT BLEPHAROPLASTY UPPER BILATERAL Brow ptosis, bilateral Dermatochalasis of both upper eyelids 07/16/2025 11:30 AM EDT documented as of this encounter Visit Diagnoses Not on filedocumented in this encounter Care Teams Drafting Technician Relationship Specialty Start Date End Date Aniceto Pearl MD [address] [place] [address] PCP - General 03/07/01 Kenyatta Dumont [address] [place] [address] Referring Cardiology 05/29/18 Juan F Mckinney MD [address] [place] [address] Primary Staff Physician Cardiology 05/10/20 Aniceto Pearl MD [address] [place] [address] Referring Family Medicine 01/08/23 Aniceto Pearl MD [address] [place] [address] Referring Family Medicine 06/19/23 documented as of this encounter
--- OUTSIDE RECORDS SUMMARY | 2025-06-04 15:39 | XMS_ITS | Clinical Summary ---
Author Organization [facility] Address [address] [place] [address] Care Team Providers Care Weed Eradicator Name Role Phone Aniceto Pearl MD Primary Care Provider [phone] Allergies Active Allergy Reactions Criticality Noted Date Comments Codeine Itching 06/10/2023 Oxycodone Itching 06/10/2023 Medications Coenzyme X82-Drgesno E (Qunol Ultra CoQ10) 100-150 MG-UNIT capsule Orally Acti ve furosemide (Lasix) 20 MG tablet 1 (one) time each day at the same time. Active Multiple Vitamins-Minera ls (Centrum Silver 50+Men) tablet 1 (one) time each day at the same time. Active omeprazole (PriLOSEC) [address] capsule 1 capsule 1 (one) time each day at the same time. Active saw palmetto (Serenoa repens) 450 MG capsule 1 (one) time each day at the same time. Active calcium citrate 600 mg and vitamin D3 (Citrical & Minerals + Vit D) 600-200 MG-UNIT tablet every 12 (twelve) hours. Active coenzyme Q-10 30 MG capsule Co Q-10 Active psyllium (Metamucil) 100 % powder 1 (one) time each day at the same time. Active saw palmetto 80 MG capsule take 1 Tablet by Oral route every day Oral Active cholecalciferol (Vitamin D-3) 50 MCG (1999) capsule 1 capsule 1 (one) time each day at the same time. Active irbesartan (Avapro) 300 MG tablet Take 300 mg by mouth at bedtime. Active metoprolol succinate XL (Toprol-XL) 50 MG 24 hr tablet Take by mouth. Do not crush or chew. Active cyanocobalamin (Vitamin B-12) 100 MCG tablet Take 100 mcg by mouth in the morning. Active simvastatin (Zocor) 20 MG tablet TAKE 1 TABLET BY MOUTH DAILY IN THE EVENING Active benzonatate (Tessalon) 200 MG capsule 1 capsule every 8 (eight) hours 01/20/2025 Active doxycycline (Vibramycin) 50 MG capsule Take 50 mg by mouth Daily Active Active Problems Problem Noted Date Diagnosed Date Bilateral low back pain 06/10/2023 Lumbar disc disease with radiculopathy 3 Family History Medical History Relation Name Comments Cancer Father Stroke Father Diabetes Maternal Grandfather Stroke Maternal Grandfather Diabetes Maternal Grandmother Stroke Maternal Grandmother Hypertension Mother Stroke Mother No Known Problems Paternal Grandfather No Known Problems Paternal Grandmother Relation Name Status Comments Father Maternal Grandfather Maternal Grandmother Mother Paternal Grandfather Paternal Grandmother Social History Tobacco Use Types Packs/Day Years Used Date Smoking Tobacco: Former Cigarettes Smokeless Tobacco: Never Comments:>10 years since las t smoked Alcohol Use Standard Drinks/Week Comments Yes 0 (1 standard drink = 0.6 oz pure alcohol) caffeine: 3-4 cups per day coffee Sex and Gender Information Value Date Recorded Sex Assigned at Male 06/20/2023 1:27 PM EDT Legal Sex Male 7:12 PM EDT Gender Identity Male 06/20/2023 1:27 PM EDT Sexual Orientation Not on file Last Filed Vital Signs Vital Sign Reading Time Taken Comments Blood Pressure 129/81 06/20/2023 1:37 PM EDT Pulse 60 06/20/2023 1:37 PM EDT Temperature 36.4 C (97.6 F) 06/20/2023 1:37 PM EDT Respiratory Rate - - Oxygen Saturation - - Inhaled Oxygen Concentration - - Weight 85.3 kg (188 lb) 04/01/2018 12:00 PM EDT Height 179.1 cm (5' 10.5 ) 04/01/2018 12:00 PM E DT Body Mass Index 26.59 04/01/2018 12:00 PM EDT Plan of Treatment Health Maintenance Due Date Last Done Comments Influenza Vaccine (#1) 2025 4, 08/15/2023, 09/11/2022, Additional history exists Pneumococcal Vaccine: 65+ Years Completed 0, 06/10/2017 Insurance MEDICARE [facility] Care Teams Weed Eradicator Relationship Specialty Start Date End Date Aniceto Pearl MD PCP - General Family Medicine 06/20/23
--- OUTSIDE RECORDS SUMMARY | 2025-06-04 15:39 | XMS_ITS | Encounter Summary ---
Author Organization [facility] Address [address] [place] [address] Care Team Providers Care Fast Food Services Manager Name Role Phone Aniceto Pearl MD Primary Care Provider [phone] Encounter Details Date Type Department Care Team (Late st Contact Info) Description 06/10/2023 Abstract [facility] [address] [facility] [address] [place] [address] Miryam Borges MA, GXMO [address] [place] [address] Social History Tobacco Use Types Packs/Day Years Used Date Smoking Tobacco: Never Assessed Sex and Gender Information Value Date Recorded Sex Assigned at Male 06/20/2023 1:27 PM EDT Legal Sex Male 7:12 PM EDT Gender Identity Male 06/20/2023 1:27 PM EDT Sexual Orientation Not on file documented as of this encounter Plan of Treatment Not on file documented as of this encounter Visit Diagnoses Not on filedocumented in this encounter Care Teams Fast Food Services Manager Relationship Specialty Start Date End Date Aniceto Pearl MD PCP - General Family Medicine 06/20/23 documented as of this encounter
--- OUTSIDE RECORDS SUMMARY | 2025-06-04 15:39 | XMS_ITS | Encounter Summary ---
Author Organization [facility] Address [address] [place] [address] Care Team Providers Care Copping Machine Operator Name Role Phone Aniceto Pearl MD Primary Care Provider [phone] Kenyatta Dumont Unavailable Juan F Mckinney MD Unavailable Aniceto Pearl MD Unavailable [phone] Aniceto Pearl MD Unavailable [phone] Source Comments In the event this information is protected by the Federal Confidentiality of Alcohol and Drug AbusePatient Records regulations: The Federal rules restrict any use of the information to criminally investigate or prosecute any alcohol or drug abuse patient.[facility] Encounter Details Date Type Department Care Team (Late st Contact Info) Description 06/01/2017 Patient Msg Medical Records [address] [place] [address] Provider, Ccf Questionnaire Submission Social History Tobacco Use Types Packs/Day Years Used Date Smoking Tobacco: Former Alcohol Use Standard Drinks/Week Comments Yes 0 (1 standard drink = 0.6 oz pur e alcohol) social Sex and Gender Information Value Date Recorded Sex Assigned at Male 07/07/2019 6:25 PM EDT Legal Sex Male 9:23 AM EST Gender Identity Male 07/07/2019 6:25 PM EDT Sexual Orientation Straight 07/07/2019 6: 25 PM EDT Occupation Industry Job Start Date Job End Date retired Not on file Not on file Not on file documented as of this encounter Plan of Treatment Upcoming Encounters Date Type Department Care Team (Latest Contact Info) Description 06/25/2025 9:40 AM EDT PAT Pre Anesthesia [address] [place] [address] 1, Pacc [place] [address] [place] [address] pre op 07/16/2025 11:30 AM EDT Hospital Encounter Admitting [address] [place] [address] Tisha Lowery MD [address] [place] [address] Brow ptosis, 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], Dermatochalasis of both upper eyelids [H02.831, H02.834] 07/16/2025 11:30 AM EDT - 07/16/2025 2:00 PM EDT Surgery Admitting [address] [place] [address] Tisha Lowery MD [address] [place] [address] BROWLIFT 07/29/2025 11:00 AM EDT Office Visit Plastic Surgery [address] [address] Savanah Palomares, ISIDRO.DRUG ENFORCEMENT AGENT [address] [place] [address] post op 10/13/2025 10:45 AM EST Procedure Cardiology [address] [place] [address] Chest pain, unspecified type [R07.9] 10/13/2025 11:15 AM EST [facility] [address] [place] [address] Santaigo Gonzalez MD [address] [place] [address] New Consult Scheduled Procedures Name Priority Associated Diagnoses Date/Ti me BROWLIFT Brow ptosis, bilateral Dermatochalasis of both upper eyelids 07/16/2025 11:30 AM EDT BLEPHAROPLASTY UPPER BILATERAL Brow ptosis, bilateral Dermatochalasis of both upper eyelids 07/16/2025 11:30 AM EDT documented as of this encounter Visit Diagnoses Not on filedocumented in this encounter Care Teams Copping Machine Operator Relationship Specialty Start Date End Date Aniceto Pearl MD [address] [place] [address] PCP - General 03/07/01 Kenyatta Dumont [address] [place] [address] Referring Cardiology 05/29/18 Juan F Mckinney MD [address] [place] [address] Primary Staff Physician Cardiology 05/10/20 Aniceto Pearl MD [address] [place] [address] Referring Family Medicine 01/08/23 Aniceto Pearl MD [address] [place] [address] Referring Family Medicine 06/19/23 documented as of this encounter
--- OUTSIDE RECORDS SUMMARY | 2025-06-04 15:39 | XMS_ITS | Encounter Summary ---
Author Organization [facility] Address [address] [place] [address] Care Team Providers Care Cycle Touring Guide Name Role Phone Aniceto Pearl MD Primary Care Provider [phone] Kenyatta Dumont Unavailable Juan F Mckinney MD Unavailable Aniceto Pearl MD Unavailable [phone] Aniceto Pearl MD Unavailable [phone] Source Comments In the event this information is protected by the Federal Confidentiality of Alcohol and Drug AbusePatient Records regulations: The Federal rules restrict any use of the information to criminally investigate or prosecute any alcohol or drug abuse patient.[facility] Encounter Details Date Type Department Care Team (Late st Contact Info) Description 12/15/2018 Patient Msg Cardiology [address] [place], [place] [id number] Kenyatta Dumont [address] [place] [address] Labs Social History Tobacco Use Types Packs/Day Years Used Date Smoking Tobacco: Former Cigarettes 1.5 25 0 08/11/1965 - 08/11/1990 Smokeless Tobacco: Never Alcohol Use Standard Drinks/Week Comments Yes 0 [...] on file documented as of this encounter Functional Status [...] 9:40 AM EDT PAT Pre Anesthesia [address] [place] [address] 1, Pacc [place] [address] [place] [address] pre op 07/16/2025 11:30 AM EDT Hospital Encounter Admitting [address] [place] [address] Tisha Lowery MD [address] [place] [address] Brow ptosis, 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], Dermatochalasis of both upper eyelids [H02.831, H02.834] 07/16/2025 11:30 AM EDT - 07/16/2025 2:00 PM EDT Surgery Admitting [address] [place] [address] Tisha Lowery MD [address] [place], [place] [address] BROWLIFT 07/29/2025 11:00 AM EDT Office Visit Plastic Surgery [address] [place] [id number] Savanah Palomares, ISIDRO.CINEMA OPERATOR [address] [place] [address] post op 10/13/2025 10:45 AM EST Procedure Cardiology [address] [place] [address] Chest pain, unspecified type [R07.9] 10/13/2025 11:15 AM EST [facility] Visit [facility] [address] [place] [id number] Santiago Gonzalez MD [address] [place] [address] New Consult Scheduled Procedures Name Priority Associated Diagnoses Date/Ti me BROWLIFT Brow ptosis, bilateral Dermatochalasis of both upper eyelids 07/16/2025 11:30 AM EDT BLEPHAROPLASTY UPPER BILATERAL Brow ptosis, bilateral Dermatochalasis of both upper eyelids 07/16/2025 11:30 AM EDT documented as of this encounter Visit Diagnoses Not on filedocumented in this encounter Care Teams Cycle Touring Guide Relationship Specialty Start Date End Date Aniceto Pearl MD [address] [place] [address] PCP - General 03/07/01 Kenyatta Dumont [address] [place] [address] Referring Cardiology 05/29/18 Juan F Mckinney MD [facility] [place] [address] Primary Staff Physician Cardiology 05/10/20 Aniceto Pearl MD [facility] [place] [address] Referring Family Medicine 01/08/23 Aniceto Pearl MD [address] [place] [address] Referring Family Medicine 06/19/23 documented as of this encounter
--- OUTSIDE RECORDS SUMMARY | 2025-06-04 15:40 | XMS_ITS | Patient Health Record ---
Author Organization [facility] in [place] Address [address] [place] [address] Care Team Providers Care Worm Raiser Name Role Phone Edwin Isaacs Primary Care Provider Allergies Allergen (clinical drug ingredient) Drug/Non Drug Allergy documented on EMR Reaction Allergy Type Onset Date Status dust (uncoded) Unknown Allergy Activ e Pollen pollens (uncoded) Unknown Allergy Ac tive lisinopril Lisinopril Unknown Drug Allergy Activ e Results Component Value Reference Range Notes CBC AUTO DIFF Reviewed date:10/01/2024 07:29:37 PM Interpretation: Performing Lab: Notes/Report: [facility] , White Blood Count 6.3 4.0-11.0 10 3/uL Red Blood Count 5.26 4.70-6.10 10 6/uL Hemoglobin 13.7 14.0-18.0 g/dL Hematocrit 44.4 42.0-54.0 % Mean Corpuscular Volume 84.4 80.0-94.0 fL Mean Corpuscular Hemoglobin 26.0 25.9-34.0 pg Mean Corpuscular HGB Conc 30.9 29.9-35.2 g/dL Red Cell Distribution Width 16.4 11.0-15.0 % Platelet Count 144 150-450 10 3/uL Mean Platelet Volume 10.5 9.5-13.5 fL Neutrophils Percent Auto 53.8 43.0-75.0 % Lymphocytes Percent Auto 38.3 20.5-60.0 % Monocytes Percent Auto 6.1 1.7-12.0 % Eosinophils Percent Auto 1.0 0.9-7.0 % Basophils Percent Auto 0.5 0.2-2.0 % Immature Granulocytes Pct Auto 0.3 0.0-0.5 % Neutrophils Absolute Auto 3.4 1.4-6.5 10 3/uL Lymphocytes Absolute Auto 2.4 1.2-3.8 10 3/uL Monocytes Absolute Auto 0.4 0.3-0.8 10 3/uL Eosinophils Absolute Auto 0.1 0.0-0.7 10 3/uL Basophils Absolute Auto 0.0 0.0-0.1 10 3/uL Immature Granulocytes Abs Auto 0.02 0.00-0.03 10 3/uL Performing Lab: see note ML - [facility] LB FERRITIN Reviewed date:10/01/2024 07:29:37 PM Interpretation: Performing Lab: Notes/Report: [facility] , Ferritin 23.0 26.0-388.0 ng/mL Performing Lab: see note - [facility] LB IRON Reviewed date:10/01/2024 07:29:37 PM Interpretation: Performing Lab: Notes/Report: [facility] , Iron 39.0 65.0-175.0 ug/dL Performing Lab: see note ML - [facility] LB US venous doppler LE BI Reviewed date:06/04/2024 05:38:01 PM Interpretation: Performing Lab: Notes/Report: Source Facility: [place] [address] Ultrasound Report Signed Patient: WALLY WOODALL MR#: [id number] : 1945 Acct:[id number] Age/Sex: 78 / M ADM Date: 06/04/24 Loc: US Attending Dr: Onel Isaacs M.D. Ordering Physician: Onel Isaacs M.D. Date of Service: 06/04/24 Procedure(s): US venous doppler LE BI Accession Number(s): [id number] cc: Onel Isaacs M.D. [place] [address] Patient Name: WALLY WOODALL MRN: [id number] date: 1945 Sex: M Assigned Patient Location: US Current Patient Location: US Accession/Order Number: [id number] Exam Date: 06/04/2024 15:00 Report Date: 06/04/2024 16:51 At the request of: ONEL ISAACS Procedure: US venous doppler LE BI EXAM: US venous doppler LE BI HISTORY: Edema R60.9 COMPARISON: None. TECHNIQUE: Grayscale, color and Doppler FINDINGS: Region: Bilateral legs Thrombus: None Flow: Normal Augmentation: Normal Compressibility: Normal Other: Subcutaneous edema noted along the left lower leg US/US venous doppler LE BI IMPRESSION: No deep or superficial vein thrombus identified in the legs Electronically authenticated by: LEONELA PARIKH Date: 06/04/2024 16:51 Dictated By: Leonela Parkih M.D. Signed By: 06/04/241653 DD/ 50 TD/TT: Trade Economist: [place] [address] Ultrasound Report Signed Patient: WALLY WOODALL MR#: [id number] : 1945 Acct:[id number] Age/Sex: 78 / M ADM Date: 06/04/24 Loc: US Attending Dr: Giselle Isaacs M.D. Ordering Physician: Onel Isaacs M.D. Date of Service: 06/04/24 Procedure(s): US nilsa ous doppler LE BI Accession Number(s): [id number] cc: Onel Isaacs M.D. [address] [address] Patient Name: WALLY WOODALL MRN: [id number] date: 1945 Sex: M Assigned Patient Location: Current Patient Location: US Accession/Order Numb er: [id number] Exam Date: 06/04/2024 15:00 Report Date: 06/04/2024 16:51 At the request of: ONEL ISAACS Procedure: US venous doppler LE BI EXAM: US venous dopp ler LE BI HISTORY: Edema R60.9 COMPARISON: None. TECHNIQUE: Grayscale , color and Doppler FINDINGS: Region: Bilateral legs Thrombus: None Flow: Normal Augmentation: Normal Compressibility: Normal Other: Subcutaneous edema noted along the left lower leg US/US venous doppler LE BI IMPRESSION: No deep or superfici al vein thrombus identified in the legs Electronically authenticated by: LEONELA PARIKH Date: 06/04/2024 16:51 Dictated By: Lucio Parikh M.D. Signed By: 06/04/241653 DD/ 50 TD/TT: Trade Economist: CBC AUTO DIFF Reviewed date:09/12/2024 11:06:15 AM Interpretation: Performing Lab: Notes/Report: [facility] , White Blood Count 5.0 4.0-11.0 10 3/uL Red Blood Count 4.83 4.70-6.10 10 6/uL Hemoglobin 12.4 14.0-18.0 g/dL Hematocrit 40.1 42.0-54.0 % Mean Corpuscular Volume 83.0 80.0-94.0 fL Mean Corpuscular Hemoglobin 25.7 25.9-34.0 pg Mean Corpuscular HGB Conc 30.9 29.9-35.2 g/dL Red Cell Distribution Width 14.7 11.0-15.0 % Platelet Count 158 150-450 10 3/uL Mean Platelet Volume 10.4 9.5-13.5 fL Neutrophils Percent Auto 47.7 43.0-75.0 % Lymphocytes Percent Auto 43.1 20.5-60.0 % Monocytes Percent Auto 7.8 1.7-12.0 % Eosinophils Percent Auto 1.0 0.9-7.0 % Basophils Percent Auto 0.2 0.2-2.0 % Immature Granulocytes Pct Auto 0.2 0.0-0.5 % Neutrophils Absolute Auto 2.4 1.4-6.5 10 3/uL Lymphocytes Absolute Auto 2.2 1.2-3.8 10 3/uL Monocytes Absolute Auto 0.4 0.3-0.8 10 3/uL Eosinophils Absolute Auto 0.1 0.0-0.7 10 3/uL Basophils Absolute Auto 0.0 0.0-0.1 10 3/uL Immature Granulocytes Abs Auto 0.01 0.00-0.03 10 3/uL Performing Lab: see note ML - [facility] LB GLYCOHEMOGLOBIN A1C Reviewed date:09/12/2024 11:06:15 AM Interpretation: Performing Lab: Notes/Report: [facility] , Glycohemoglobin A1C 5.4 4.5-6.2 % ACTION SUGGESTED ADA THERAPEUTIC TARGET < 7.0 > 7.0 ADA RECOMMENDED LIMIT 4.0 - 6.0 Estimated Average Glucose 108 Performing Lab: see note ML - [facility] LB US venous doppler UE RT Reviewed date:12/23/2024 09:19:36 PM Interpretation: Performing Lab: Notes/Report: Source Facility: [facility] [place] [address] Ultrasound Report Signed Patient: WALLY WOODALL MR#: [id number] : 1945 Acct:[id number] Age/Sex: 79 / M ADM Date: 12/23/24 Loc: [facility] Attending Dr: Onel Isaacs M.D. Ordering Physician: Onel Isaacs M.D. Date of Service: 12/23/24 Procedure(s): US venous doppler UE LT Accession Number(s): [id number] cc: Onel Isaacs M.D. [place] [address] Patient Name: WALLY WOODALL MRN: [id number] date: 1945 Sex: M Assigned Patient Location: [facility] Current Patient Location: [facility] Accession/Order Number: [id number] Exam Date: 12/23/2024 18:15 Report Date: 12/23/2024 21:12 At the request of: ONEL ISAACS Procedure: US venous doppler UE LT EXAM: US venous doppler UE LT HISTORY: ARM PAIN M79.603 COMPARISON: None. TECHNIQUE: Grayscale, color Doppler and spectral Doppler waveform analysis was used to evaluate the left upper extremity venous vascular structures. FINDINGS: The internal jugular vein is compressible. The subclavian vein demonstrates normal color flow and waveform analysis. The axillary, brachial, radial, and ulnar veins are compressible. The superficial veins are unremarkable. US/US venous doppler UE LT IMPRESSION: No left upper extremity deep or superficial venous thrombosis. Electronically authenticated by: Renaldo JONES Date: 12/23/2024 21:12 Dictated By: Renaldo Jones M.D. Signed By: 12/23/242114 DD/ 11 TD/TT: Trade Economist: [address] [address] Ultrasound Report Signed Patient: WALLY WOODALL MR#: [id number] : 1945 Acct:[id number] Age/Sex: 79 / M ADM Date: 12/23/24 Loc: RAD Attending Dr: Giselle Isaacs M.D. Ordering Physician: Onel Isaacs M.D. Date of Service: 12/23/24 Procedure(s): US nilsa ous doppler UE LT Accession Number(s): [id number] cc: Onel Isaacs M.D. [place] [address] Patient Name: WALLY WOODALL MRN: [facility]:[id number] date: 1945 Sex: M Assigned Patient Location: [facility] Current Patient Location: [facility] Accession/Order Numb er: [id number] Exam Date: 12/23/2024 18:15 Report Date: 12/23/2024 21:12 At the request of: ONEL ISAACS Procedure: US venous doppler UE LT EXAM: US venous dopp ler UE LT HISTORY: ARM PAIN M79.603 COMPARISON: None. TECHNIQUE: Grayscale , color Doppler and spectral Doppler waveform analysis was used to evaluate the left upper extremity venous vascular structures. FINDINGS: The copywriting intern al jugular vein is compressible. The subclavian vein demonstrates normal color flow and waveform analysis. The axillary, brachial, radial, and ulnar ve ins are compressible. The superficial veins are unremarkable. US/US venous doppler UE LT IMPRESSION: No left upper extrem ity deep or superficial venous thrombosis. Electronically authenticated by: Renaldo JONES Date: 12/23/2024 21:12 Dictated By: Renaldo Jones M.D. Signed By: 12/23/242114 DD/ 11 TD/TT: Trade Economist: [facility] Reviewed date:09/12/2024 11:06:16 AM Interpretation: Performing Lab: Notes/Report: [facility] , Thyroid Stimulating Hormone 1.397 0.358-3.740 uIU/mL Performing Lab: see note ML - [facility] LB T4 Reviewed date:09/12/2024 11:06:16 AM Interpretation: Performing Lab: Notes/Report: [facility] , T4 Thyroxine 6.30 4.50-12.10 ug/dL Performing Lab: see note ML - [facility] LB PSA SCREENING Reviewed date:09/12/2024 11:06:16 AM Interpretation: Performing Lab: Notes/Report: [facility] , Prostate Specific Antigen Scrn 3.46 <=4.00 ng/mL Performing Lab: see note ML - [facility] LB PROF 14(COMP METB) Reviewed date:09/12/2024 11:06:16 AM Interpretation: Performing Lab: Notes/Report: [facility] , Sodium 145 136-145 mmol/L Potassium 3.5 3.5-5.1 mmol/L Chloride 109 98-107 mmol/L Carbon Dioxide 26.7 21.0-32.0 mmol/L Anion Gap 12.8 Glucose 91 74-106 mg/dL Blood Urea Nitrogen 12.0 7.0-18.0 mg/dL Creatinine 1.24 0.70-1.30 mg/dL Estimated GFR ( Tigist >60 >=60 mL/min/1.73m 2 Estimated GFR (Non- Tammi 57 >=60 mL/min/1.73m 2 BUN Creatinine Ratio 9.7 Calcium 9.3 8.5-10.1 mg/dL Bilirubin Total 0.4 0.2-1.0 mg/dL Aspartate Amino Transferase 18 15-37 U/L Alanine Aminotransferase 21 16-63 U/L Alkaline Phosphatase 93 46-116 U/L Total Protein 7.0 6.4-8.2 g/dL Albumin Level 3.8 3.4-5.0 g/dL Globulin 3.2 Albumin Globulin Ratio 1.2 Performing Lab: see note ML - [facility] LB LIPID PROFILE Reviewed date:09/12/2024 11:06:15 AM Interpretation: Performing Lab: Notes/Report: [facility] , Triglycerides 122 <=150 mg/dL Cholesterol 140 <=200 mg/dL HDL Cholesterol 40 40-60 mg/dL > or =60 mg/dl - LOW CARDIOVASCULAR RISK <40 mg/dl - HIGH CARDIOVASCULAR RISK LDL Cholesterol Calculated 75.6 160-189 mg/dl HIGH 100-129 mg/dl NEAR OR ABOVE OPTIMAL <100 mg/dl OPTIMAL 130-159 mg/dl BORDERLINE HIGH >190 mg/dl VERY HIGH VLDL CHOLESTEROL 24.4 Chol HDL Ratio 3.5 4.4 - 7.1 AVERAGE RISK >11.0 HIGH RISK 7.1 - 11.0 MODERATE RISK 3.3 - 4.4 LOW RISK Performing Lab: see note ML - [facility] FREE T3 Reviewed date:09/12/2024 11:06:15 AM Interpretation: Performing Lab: Notes/Report: [facility] T3 2.72 2.18-3.98 pg/mL Performing Lab: see note ML - [facility] CT abdomen pelvis w con Reviewed date:08/05/2024 09:35:35 PM Interpretation: Performing Lab: Notes/Report: Source Facility: [place] [address] CT Scan Report Signed Patient: WALLY WOODALL MR#: [id number] : 1945 Acct:[id number] Age/Sex: 78 / M ADM Date: 08/04/24 Loc: CT Attending Dr: Onel Isaacs M.D. Ordering Physician: Onel Isaacs M.D. Date of Service: 08/04/24 Procedure(s): CT abdomen pelvis w con Accession Number(s): [id number] cc: Onel Isaacs M.D. [place] [address] Patient Name: WALLY WOODALL MRN: [id number] date: 1945 Sex: M Assigned Patient Location: CT Current Patient Location: Accession/Order Number: [id number] Exam Date: 08/04/2024 09:55 Report Date: 08/05/2024 06:51 At the request of: ONEL ISAACS Procedure: CT abdomen pelvis w con EXAMINATION: CT abdomen pelvis w con HISTORY: Abdominal Wall Hernia K43.9 COMPARISON: No relevant comparison available. TECHNIQUE: Axial, Coronal, and Sagittal images were obtained without and/or with IV contrast as indicated by examination type. Dose reduction techniques were achieved by using automated exposure control and/or adjustment of mA and/or kV according to patient size and/or use of iterative reconstruction technique. FINDINGS: LUNG BASES: No visible pulmonary or pleural disease. LIVER: No enlargement, atrophy, suspicious density, or significant focal lesion. BILIARY: Cholecystectomy. PANCREAS: No lesion, fluid collection, or abnormal duct dilatation. SPLEEN: No enlargement or focal lesion. ADRENALS: No mass or enlargement. KIDNEYS: Bilateral hypodensities favoring cysts. No appreciable mass, obstruction, or calcification. BOWEL/MESENTERY: Numerous diverticula scattered along the length of colon without acute inflammatory changes. No visible mass, obstruction, or bowel wall thickening. AORTA/VASCULAR: No aneurysm or dissection. RETROPERITONEUM: No mass or adenopathy. LYMPH NODES: No adenopathy. URINARY BLADDER: No visible focal wall thickening, lesion, or calculus. PELVIC ORGANS: No visible mass. Pelvic organs appropriate for patient age. ABDOMINAL WALL: Supra umbilical ventral hernia 3.4 cm in diameter with a 1.3 cm wide neck containing only fat. No strangulation. BONES: No bony lesion or fracture. OTHER: Negative. CT/CT abdomen pelvis w con IMPRESSION: 1. Small fat filled nonstrangulated supraumbilical ventral hernia. 2. Colonic diverticulosis. Electronically authenticated by: WAQAS PAYTON Date: 08/05/2024 06:51 Dictated By: Waqas Payton M.D. Signed By: 08/05/24 0654 DD/ 0651 TD/TT: Trade Economist: [place] [address] CT Scan Report Signed Patient: WALLY WOODALL MR#: [id number] : 1945 Acct:[id number] Age/Sex: 78 / M ADM Date: 08/04/24 Loc: CT Attending Dr: Giselle Isaacs M.D. Ordering Physician: Onel Isaacs M.D. Date of Service: 08/04/24 Procedure(s): CT abdomen pelvis w con Accession Number(s): [id number] cc: Onel Isaacs M.D. [place] [id number] Patient Name: WALLY WOODALL MRN: [id number] date: 1945 Sex: M Assigned Patient Location: CT Current Patient Location: Accession/Order Numb er: [id number] Exam Date: 08/04/2024 09:55 Report Date: 08/05/2024 06:51 At the request of: ONEL ISAACS Procedure: CT abdome n pelvis w con EXAMINATION: CT abdo men pelvis w con HISTORY: Abdominal W all Hernia K43.9 COMPARISON: No relev ant comparison available. TECHNIQUE: Axial, Coronal, and Sagittal images were obtained without and/or with IV contrast as indicated by examination type. Dose reduction techniques were achieved by usi ng automated exposure control and/or adjustment of mA and/or kV according to patient size and/or use of iterative reconstruction technique. FINDINGS: LUNG BASES: No visib le pulmonary or pleural disease. LIVER: No enlargemen t, atrophy, suspicious density, or significant focal lesion. BILIARY: Cholecystectomy. PANCREAS: No lesion, fluid collection, or abnormal duct dilatation. SPLEEN: No enlargeme nt or focal lesion. ADRENALS: No mass or enlargement. KIDNEYS: Bilateral hypodensities favoring cysts. No appreciable mass, obstruction, or calcification. BOWEL/MESENTERY: Numerous diverticula scattered along the length of colon without acute inflammatory changes. No visible mass, obstruction, or bowel wall thickening. AORTA/VASCULAR: No aneurysm or dissection. RETROPERITONEUM: No mass or adenopathy. LYMPH NODES: No adenopathy. URINARY BLADDER: No visible focal wall thickening, lesion, or calculus. PELVIC ORGANS: No visible mass. Pelvic organs appropriate for patient age. ABDOMINAL WALL: Supr a umbilical ventral hernia 3.4 cm in diameter with a 1.3 cm wide neck containing only fat. No strangulation. BONES: No bony lesio n or fracture. OTHER: Negative. CT/CT abdomen pelvis w con IMPRESSION: 1. Small fat filled nonstrangulated supraumbilical ventral hernia. 2. Colonic diverticulosis. Electronically authenticated by: WAQAS PAYTON Date: 08/05/2024 06:51 Dictated By: Waqas Payton M.D. Signed By: 08/05/2454 DD/ TD/TT: Trade Economist: CREATININE Reviewed date:08/04/2024 10:22:35 PM Interpretation: Performing Lab: Notes/Report: [facility] , Creatinine 1.28 0.70-1.30 mg/dL Estimated GFR ( Tigist >60 >=60 Estimated GFR (Non- Tammi 54 >=60 Performing Lab: see note ML - [facility] LB CT lower leg LT wo con Reviewed date:03/22/2025 02:48:59 PM Interpretation: Performing Lab: Notes/Report: Source Facility: [place] [address] CT Scan Report Signed Patient: WALLY WOODALL MR#: [id number] : 1945 Acct:[id number] Age/Sex: 79 / M ADM Date: 03/19/25 Loc: CT Attending Dr: Onel Isaacs M.D. Ordering Physician: Onel Isaacs M.D. Date of Service: 03/19/25 Procedure(s): CT lower leg LT wo con Accession Number(s): [id number] cc: Onel Isaacs M.D. [place] [address] Patient Name: WALLY WOODALL MRN: [facility]:[id number] date: 1945 Sex: M Assigned Patient Location: CT Current Patient Location: Accession/Order Number: [id number] Exam Date: 03/22/2025 12:30 Report Date: 03/22/2025 12:33 At the request of: ONEL ISAACS MD Procedure: CT lower leg LT wo con CT left lower leg WITHOUT CONTRAST : CLINICAL HISTORY: ABRASION T14.8XXA COMPARISON: None TECHNIQUE: Spiral axial unenhanced images were obtained through the left lower leg. Sagittal, coronal reconstructions were also reviewed. This CT exam was performed using one or more following dose reduction techniques: Automated exposure control, adjustment of the mA and/or kV according to patient size, or use of iterative reconstruction technique. FINDINGS: Distal soft tissue swelling/thickening is noted. No measurable fluid collection is seen. No soft tissue gas. No radiopaque foreign body. No fracture. Knee joint and ankle mortise demonstrate degenerative change. Musculature appears unremarkable. Arterial vasculature demonstrates calcification. CT/CT lower leg LT wo con IMPRESSION: DISTAL SOFT TISSUE SWELLING/THICKENING WITHOUT ACUTE BONY PROCESS. Impression dictated by: Michael Hale Jr., D.O. 03/22/2025 12:33 PM Dictation Location: [place] [address] Electronically authenticated by: [id number] Y Date: 03/22/2025 12:33 Dictated By: Michael Hale M.D. Signed By: 03/22/25 1236 DD/ 1233 TD/TT: Trade Economist: [place] [address] CT Scan Report Signed Patient: WALLY WOODALL MR#: [id number] : 1945 Acct:[id number] Age/Sex: 79 / M ADM Date: 03/19/25 Loc: CT Attending Dr: Giselle Isaacs M.D. Ordering Physician: Onel Isaacs M.D. Date of Service: 03/19/25 Procedure(s): CT low er leg LT wo con Accession Number(s): [id number] cc: Onel Isaacs M.D. [address] [address] Patient Name: WALLY WOODALL MRN: [id number] date: 1945 Sex: M Assigned Patient Location: CT Current Patient Location: Accession/Order Numb er: [id number] Exam Date: 03/22/2025 12:30 Report Date: 03/22/2025 12:33 At the request of: ONEL ISAACS MD Procedure: CT lower leg LT wo con CT left lower leg WITHOUT CONTRAST : CLINICAL HISTORY: ABRASION T14.8XXA COMPARISON: None TECHNIQUE: Spiral ax ial unenhanced images were obtained through the left lower leg. Sagittal, coronal reconstructions were also reviewed. This CT exam was performed using one or more following dose reduction techniques: Automated exposure control, adjustment of the mA and/or kV according to patient size, or use of iterative reconstruction technique. FINDINGS: Distal sof t tissue swelling/thickening is noted. No measurable fluid collection is seen. No soft tissue gas. No radiopaque foreign body. No fracture. Knee oren int and ankle mortise demonstrate degenerative change. Musculature appears unremarkable. Arterial vasculature demonstrates calcification. CT/CT lower leg LT wo con IMPRESSION: DISTAL SOFT TISSUE SWELLING/THICKENING WITHOUT ACUTE BONY PROCESS. Impression dictated by: Michael Hale Jr., D.O. 03/22/2025 12:33 PM Dictation Location: [place] [address] Electronically authenticated by: [id number] Y Date: 03/22/2025 12:33 Dictated By: Michael Hale M.D. Signed By: 03/22/25 1236 DD/ 1233 TD/TT: Trade Economist: RITESH-19, Flu A+B IH Reviewed date:03/22/2025 02:48:59 PM Interpretation: Performing Lab: Notes/Report: COVID neg FLU A neg FLU B neg Control pos XR wrist LT min 3V Reviewed date:12/26/2024 04:12:57 PM Interpretation: Performing Lab: Notes/Report: Source Facility: [place] [address] XRay Report Signed Patient: WALLY WOODALL MR#: [id number] : 1945 Acct:[id number] Age/Sex: 79 / M ADM Date: 12/23/24 Loc: RAD Attending Dr: Onel Isaacs M.D. Ordering Physician: Onel Isaacs M.D. Date of Service: 12/23/24 Procedure(s): XR wrist LT min 3V Accession Number(s): [id number] cc: Onel Isaacs M.D. [place] [address] Patient Name: WALLY WOODALL MRN: [id number] date: 1945 Sex: M Assigned Patient Location: RAD Current Patient Location: Accession/Order Number: [id number] Exam Date: 12/23/2024 18:45 Report Date: 12/25/2024 07:14 At the request of: ONEL ISAACS Procedure: XR wrist LT min 3V PROCEDURE: XR wrist LT min 3V COMPARISON: None. HISTORY: ARM PAIN M79.603 FINDINGS: BONES:No acute fracture or dislocation. Moderate to severe degenerative changes of the medial carpus with joint space narrowing marginal osteophyte formation most significant first carpometacarpal joint SOFT TISSUES:Negative. No visible soft tissue swelling. EFFUSION:None visible. OTHER: Negative. XR/XR wrist LT min 3V IMPRESSION: Osteoarthritis with no acute fracture Electronically authenticated by: LEONELA PARIKH Date: 12/25/2024 07:14 Dictated By: Leonela Parikh M.D. Signed By: 12/25/24715 DD/ TD/TT: Trade Economist: [place] [address] XRay Report Signed Patient: WALLY WOODALL MR#: [id number] : 1945 Acct:[id number] Age/Sex: 79 / M ADM Date: 12/23/24 Loc: [facility] Attending Dr: Giselle Isaacs M.D. Ordering Physician: Onel Isaacs M.D. Date of Service: 12/23/24 Procedure(s): XR wri st LT min 3V Accession Number(s): [id number] cc: Onel Isaacs M.D. [address] [id number] Patient Name: WALLY WOODALL MRN: [id number] date: 1945 Sex: M Assigned Patient Location: [facility] Current Patient Location: Accession/Order Numb er: [id number] Exam Date: 12/23/2024 18:45 Report Date: 12/25/2024 07:14 At the request of: ONEL ISAACS Procedure: XR wrist LT min 3V PROCEDURE: XR wrist LT min 3V COMPARISON: None. HISTORY: ARM PAIN M79.603 FINDINGS: BONES:No acute fract ure or dislocation. Moderate to severe degenerative changes of the medial carpus with joint space narrowing marginal osteophyte formation most significant fir st carpometacarpal joint SOFT TISSUES:Negativ e. No visible soft tissue swelling. EFFUSION:None visible. OTHER: Negative. XR/XR wrist LT min 3V IMPRESSION: Osteoarthritis with no acute fracture Electronically authenticated by: LEONELA PARIKH Date: 12/25/2024 07:14 Dictated By: Lucio Parikh M.D. Signed By: 12/25/24715 DD/ 3 TD/TT: Trade Economist: IRON Reviewed date:09/12/2024 11:06:16 AM Interpretation: Performing Lab: Notes/Report: [facility] , Iron 23.0 65.0-175.0 ug/dL Performing Lab: see note ML - [facility] LB FERRITIN Reviewed date:09/12/2024 11:06:16 AM Interpretation: Performing Lab: Notes/Report: [facility] , Ferritin 11.0 26.0-388.0 ng/mL Performing Lab: see note ML - [facility] LB BNP Reviewed date:09/12/2024 11:06:16 AM Interpretation: Performing Lab: Notes/Report: [facility] , NT Pro B Type Natriuretic Pept 232.0 <=1800.0 pg/mL Performing Lab: see note ML - [facility] LB XR hip RT min 2V Reviewed date:11/19/2024 05:52:19 PM Interpretation: Performing Lab: Notes/Report: Source Facility: [facility]-[address] [place] [address] [place] [address] XRay Report Signed Patient: WALLY WOODALL MR#: [id number] : 1945 Acct:[id number] Age/Sex: 79 / M ADM Date: 11/16/24 Loc: RAD Attending Dr: Onel Isaacs M.D. Ordering Physician: Onel Isaacs M.D. Date of Service: 11/16/24 Procedure(s): XR hip RT min 2V Accession Number(s): [id number] cc: Onel Isaacs M.D. [address] [address] Patient Name: WALLY WOODALL MRN: [id number] date: 1945 Sex: M Assigned Patient Location: RAD Current Patient Location: Accession/Order Number: [id number] Exam Date: 11/16/2024 15:45 Report Date: 11/19/2024 11:32 At the request of: ONEL ISAACS Procedure: XR hip RT min 2V PROCEDURE: XR hip RT min 2V HISTORY: Hip Osteoarthritis COMPARISON: None. FINDINGS: BONES:No fracture, acute abnormality, or significant arthropathy. SOFT TISSUES:No visible soft tissue swelling. EFFUSION:None visible. OTHER: Negative. XR/XR hip RT min 2V IMPRESSION: 1. No acute bone abnormality or significant degenerative changes of the right hip. Electronically authenticated by: WAQAS PAYTON Date: 11/19/2024 11:32 Dictated By: Waqas Payton M.D. Signed By: 11/19/24 1134 DD/ 1132 TD/TT: Trade Economist: [place] [address] XRay Report Signed Patient: WALLY WOODALL MR#: [id number] : 1945 Acct:[id number] Age/Sex: 79 / M ADM Date: 11/16/24 Loc: RAD Attending Dr: Giselle Isaacs M.D. Ordering Physician: Onel Isaacs M.D. Date of Service: 11/16/24 Procedure(s): XR hip RT min 2V Accession Number(s): [id number] cc: Onel Isaacs M.D. [address] [address] Patient Name: WALLY WOODALL MRN: [id number] date: 1945 Sex: M Assigned Patient Location: RAD Current Patient Location: Accession/Order Numb er: [id number] Exam Date: 15:45 Report Date: 11/19/2024 11:32 At the request of: ONEL ISAACS Procedure: XR hip RT min 2V PROCEDURE: XR hip RT min 2V HISTORY: Hip Osteoarthritis COMPARISON: None. FINDINGS: BONES:No fracture, acute abnormality, or significant arthropathy. SOFT TISSUES:No visi ble soft tissue swelling. EFFUSION:None visible. OTHER: Negative. XR/XR hip RT min 2V IMPRESSION: 1. No acute bone abnormality or significant degenerative changes of the right hip. Electronically authenticated by: WAQAS PAYTON Date: 11/19/2024 11:32 Dictated By: Waqas Payton M.D. Signed By: 11/19/24 1134 DD/ 1132 TD/TT: Trade Economist: Reason For Referral Diagnosis 1 Abdominal wall herni a (K43.9) Referral Organization [facility] Referring Provider First Name Edwin Referring Provider Last Name benny Ref[facility] ic[facility] Referred Provider Per Bermudez Referred Provider Specialty General Surg bucky Referral Priority Routine Diagnosis 1 Hip osteoarthritis ( M16.9) Referral Organization [facility] Referring Provider First Name Edwin Referring Provider Last Name benny Referring Provider Speciality Family Med icine Referred Provider [facility], Physical Therap y Referred Provider Specialty Physical Med icine and Rehabilitation Referral Priority Routine Diagnosis 1 Arthritis of wrist, 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 Morrell Diagnosis 1 Shoulder pain, right (M25.511) Referral Organization [facility] Referring Provider First Name Edwin Referring Provider Last Name benny Referring Provider Speciality Family Med icine Referred Provider Specialty Orthopedic S urgery Referral Priority Routine Medications Medication SIG (Take, Route, Frequency, Duration) Notes Start Date End Date Status Aspirin 81 81 MG 1 tablet Orally [...] MG 1 capsule Orally Once a day [facility] added Active Lasix 20 MG 1 tablet Orally Once a day for 90 days 06/08/2024 Active Ferrous Sulfate 325 (65 Fe) MG 1 tablet Orally BID 10/01/2024 Active Irbesartan 300 MG 1 tablet Orally Once a day Active calcium citrate 2 capsules orally BID Active Vitamin D3 50 MCG (2000 UT) 1 capsule Orally Once a day Active CoQ10 Active Immunizations Vaccine Route Administration Date Status Comme nts Tdap (Adacel) IM Intramuscular 02/12/2024 Administered Social History Tobacco Use: Social History Observation Description Date Details (start date - stop date) Former Smoker 11/25/1964 - 11/25/1990 Tobacco Use/Smoking Question Answer Notes Patient is a former smoker When did you start smoking? 11/25/1964 When did you stop smoking? 11/25/1990 How long has it been since you last smoked? > 10 years Alcohol Screen (Audit-C) Question Answer Notes Did you have a drink contain ing alcohol in the past year? Yes How often did you have 6 or more drinks on one occasion in the past year? Never (0 point) How many drinks did you have on a typical day when you were drinking in the past year? 1 or 2 drinks (0 point) How often did you have a dri nk containing alcohol in the past year? Weekly (3 points) Points 3 Interpretation Negative AUDIT-C (Standard) Question Answer Notes Did you have a drink containing alcohol in the p ast year? No Points 0 Interpretation Negative Problems Problem Type SNOMED Code ICD Code Onset Dates Problem Status W/U Status Risk Notes Problem Diplopia (42954480) Diplopia (H53.2) Active confirmed Problem Acute exacerbation of chronic obstructive airways disease (380715853) Chronic obstructive pulmonary disease with (acute) exacerbation (J44.1) Active confirmed Problem Palpitations (08300022) Palpitations (R00.2) Active confirmed Problem Headache (14203012) Headache (R51) Active confirmed Problem Chest pain (40982374) Chest pain (R07.9) Active confirmed Problem Hyperlipidemia (60728916) Hyperlipidemia (E78.5) Active confirmed Problem Hypertension (82200057) Hypertension (I10) Active confirmed Problem Osteoarthritis (446958348) Osteoarthritis (M19.90) Active confirmed Problem Atrial fibrillation (87133392) AF (paroxysmal atrial fibrillation) (I48.0) Active confirmed Problem Edema (03790721) Edema (R60.9) Active confirmed Problem Dyspnea (350087773) Dyspnea (R06.00) Active confirmed Problem Eczema (44286006) Eczema (L30.9) Active confirm ed Problem Knee pain (3618743591) Knee pain (M25.569) Active confirmed Problem Pain in limb (47941470) Arm pain (M79.603) Active confirmed Problem Diverticular disease of colon (982671447) Diverticulosis (K57.90) Active confirmed Problem Internal hemorrhoids (46812160) Internal hemorrhoids (K64.8) Active confirmed Problem History of heart valve repair with prosthesis (625614367860790) Aortic valve replaced (Z95.2) Active confirmed Problem Incisional hernia (199997813) Incisional hernia (K43.2) Active confirmed Problem Arthralgia of the pelvic region and thigh (700585327) Right hip pain (M25.551) Active confirmed Problem Cellulitis (697573004) Cellulitis (L03.90) Active confirmed Problem Gastric ulcer (241252333) Gastric ulcer (K25.9) Active confirmed Problem Seborrheic keratosis (68004454) Seborrheic keratosis (L82.1) Active confirmed Problem Shoulder joint pain (329968947) Shoulder pain, right (M25.511) Active confirmed Problem Iron deficiency anemia (49881705) Other iron deficiency anemia (D50.8) Active confirmed Problem Plantar fasciitis (507118189) Plantar fasciitis (M72.2) Active confirmed Problem Chest wall pain (852862979) Chest wall pain (R07.89) Active confirmed Problem Osteoarthritis of hip (385440752) Hip osteoarthritis (M16.9) Active confirmed Problem Umbilical hernia (184328282) Umbilical hernia (K42.9) Active confirmed Problem Polyp of colon (disorder) (93181793) Colon polyps (K63.5) Active confirmed Problem Hernia of anterior abdominal wall (disorder) (152826682) Abdominal wall hernia (K43.9) Active confirmed Problem Cat bite (456773033) Cat bite (W55.01XA) Active confirmed Problem Ganglion cyst (88660126) Ganglion cyst (M67.40) Active confirmed Problem Nevus (0562692295) Nevus (D22.9) Active confirmed Problem 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 Problem Degeneration of cervical intervertebral disc (11054898) Disc disease, degenerative, 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) Active confirmed Problem Disorder of salivary gland (88174612) Parotid discomfort (K11.9) Active confirmed Problem Localized, primary osteoarthritis of the shoulder region (697175034) 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) Active confirmed Problem Spontaneous ecchymosis (713137913) Petechiae or ecchymoses (R23.3) Active confirmed Problem Arthritis of wrist (4647999575002) Arthritis of wrist, 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) Active confirmed Problem Abrasion (2236620) Abrasion (T14.8XXA) Active confirmed Problem Anemia (001571069) Acute anemia (D64.9) Active confirmed Vital Signs Blood pressure diastolic 90 mm Hg 06/03/2025 Height 70 in 06/03/2025 Blood pressure systolic 138 mm Hg 06/03/2025 Weight 186.4 lbs 06/03/2025 BMI 26.74 kg/m2 06/03/2025 Procedures Procedure Date Ordered Date Performed Result Body Sit e Dressing/Splint-performed 03/23/2025 N/A Encounters Encounter Location Date Provider Diagnosis [id number] [place] [address] 04/08/2025 Edwin Hoy Shoulder pain, right M25.511 [facility] [address] [place] [address] 04/26/2025 Edwin Hoy [facility] [address] [place] [address] 06/03/2025 Edwin Hoy Screening for prosta te cancer Z12.5 [facility] [address] [place] [address] 02/12/2025 Edwin Hoy [facility] [address] [place] [address] 02/12/2025 Edwin Hoy Hypertension I10 [facility] [address] [place] [address] 03/02/2025 Edwin Hoy [facility] [address] [place] [address] 03/22/2025 Edwin Hoy [facility] [address] [place] [address] 03/22/2025 Edwin Hoy [facility] [address] [place] [address] 03/24/2025 Edwin Hoy [facility] [address] [place] [address] 10/26/2024 Edwin Hoy Acute anemia D64.9 [facility] [address] [place] [address] 11/16/2024 Edwin Hoy [facility] [address] [place] [address] 11/19/2024 Edwin Hoy Hip osteoarthritis M 16.9 [facility] [address] [place] [address] 11/30/2024 Edwin Hoy [facility] [address] [place] [address] 12/23/2024 Edwin Hoy [facility] [address] [place] [address] 12/26/2024 Edwin Hoy Arthritis of wrist, left M19.032 [facility] [address] [place] [address] 08/05/2024 Edwin Hoy Abdominal wall herni a K43.9 [facility] [address] [place] [address] 09/04/2024 Edwin Hoy [facility] [address] [place] [address] 09/07/2024 Edwin Hoy Edema R60.9 [facility] [address] [place] [address] 09/10/2024 Edwin Hoy [facility] [address] [facility] [address] 09/12/2024 Edwin Hoy [facility] [address] [facility] [address] 10/01/2024 Edwin Hoy [facility] [address] [facility] [place] [address] 06/04/2024 Edwin Hoy [facility] [address] [facility] [place] [address] 06/08/2024 Edwin Hoy Edema R60.9 [facility] [address] [facility] [address] 06/12/2024 Edwin Hoy [facility] [address] [facility] [address] 07/29/2024 Edwin Hoy [facility] [address] [facility] [address] 07/31/2024 Edwin Hoy Encounter for other preprocedural examination Z01.818 [facility] [address] [facility] [address] 07/29/2024 Edwin Hoy Abdominal wall herni a K43.9 [facility] [address] [facility] [address] 03/17/2025 Edwin Hoy Cellulitis L03.90 [facility] [address] [facility] [place] [address] 03/23/2025 Edwin Hoy Cellulitis L03.90 [facility] [address] [facility] [address] 06/04/2024 Edwin Hoy Edema R60.9 [facility] [address] [facility] [address] 06/08/2024 Edwin Hoy Edema R60.9 [facility] [address] [facility] [place] [address] 09/10/2024 Edwin Hoy Chest pain R07.9 ; Hypertension I10 ; Dyspnea R06.00 ; Hyperlipidemia E78.5 and Anemia D64.9 [facility] [address] [facility] [address] 10/01/2024 Edwin Hoy Acute anemia D64.9 [facility] [address] [place] [address] 11/04/2024 Edwin Hoy Nevus D22.9 [facility] [address] [place] [address] 03/19/2025 Edwin Hoy Abrasion T14.8XXA an d Cellulitis L03.90 [facility] [address] [facility] [address] 03/26/2025 Edwin Hoy Cellulitis L03.90 [facility] [address] [facility] [address] 04/01/2025 Edwin Hoy Cellulitis L03.90 [facility] [address] [facility] [place] [address] 04/23/2025 Edwin Hoy Cellulitis L03.90 [facility] [address] [facility] [place] [address] 06/03/2025 Edwin Hoy Hypertension I10 [facility] [address] [facility] [address] 11/16/2024 Edwin Hoy Hip osteoarthritis M 16.9 ; Edema R60.9 ; Parotid discomfort K11.9 and Shoulder pain, right M25.511 [facility] [address] [place] [address] 12/11/2024 Edwin Hoy Right hip pain M25.5 51 [facility] [address] [facility] [address] 12/23/2024 Edwin Hoy Arm pain M79.603 [facility] [address] [facility] [address] 01/20/2025 Edwin Hoy Body aches R52 and A cute bronchitis, unspecified organism J20.9 [facility] [address] [facility] [address] 02/12/2025 Edwin Hoy Hypertension I10 and Right hip pain M25.551 [facility] [address] [place] [address] 03/11/2025 Edwin Hoy Abrasion T14.8XXA [facility] [address] [place] [address] 04/08/2025 Edwin Hoy Cellulitis L03.90 Assessments Encounter Date Diagnosis (ICD Code) Assessment Notes Treatment Notes Treatment Clinical Notes Section Notes 06/04/2024 Edema (ICD-10 - R60.9) 06/08/2024 Edema (ICD-10 - R60.9) 07/29/2024 Abdominal wall hernia (ICD-10 - K43.9) 09/10/2024 Chest pain (ICD-10 - R07.9) 09/10/2024 Hypertension (ICD-10 - I10) 10/01/2024 Acute anemia (ICD-10 - D64.9) 11/04/2024 Nevus (ICD-10 - D22.9) seeing derma nd plastics in next couple weeeks 11/16/2024 Hip osteoarthritis (ICD-10 - M16.9) getting x-rays 11/16/2024 Edema (ICD-10 - R60.9) trace 02/12/2025 Hypertension (ICD-10 - I10) 02/12/2025 Right hip pain (ICD-10 - M25.551) 03/11/2025 Abrasion (ICD-10 - T14.8XXA) 03/17/2025 Cellulitis (ICD-10 - L03.90) 03/19/2025 Abrasion (ICD-10 - T14.8XXA) 03/19/2025 Cellulitis (ICD-10 - L03.90) 03/23/2025 Cellulitis (ICD-10 - L03.90) 03/26/2025 Cellulitis (ICD-10 - L03.90) 04/01/2025 Cellulitis (ICD-10 - L03.90) 04/08/2025 Cellulitis (ICD-10 - L03.90) 04/23/2025 Cellulitis (ICD-10 - L03.90) 06/03/2025 Hypertension (ICD-10 - I10) 06/08/2024 Edema (ICD-10 - R60.9) 07/31/2024 Encounter for other preprocedural examination (ICD-10 - Z01.818) 08/05/2024 Abdominal wall hernia (ICD-10 - K43.9) 09/07/2024 Edema (ICD-10 - R60.9) 10/26/2024 Acute anemia (ICD-10 - D64.9) 11/19/2024 Hip osteoarthritis (ICD-10 - M16.9) 12/26/2024 Arthritis of wrist, left (ICD-10 - M19.032) 02/12/2025 Hypertension (ICD-10 - I10) 04/08/2025 Shoulder pain, right (ICD-10 - M25.511) 06/03/2025 Screening for prostate cancer (ICD-10 - Z12.5) 12/11/2024 Right hip pain (ICD-10 - M25.551) 12/23/2024 Arm pain (ICD-10 - M79.603) 01/20/2025 Body aches (ICD-10 - R52) 01/20/2025 Acute bronchitis, unspecified organism (ICD-10 - J20.9) Rest and drink more liquids, especially water. You may use a humidifier or vaporizer to help keep the drainage moist. Wsos-bjh-arrvxgz Nasal Saline may help the stuffy and runny nose. Use Ibuprofen and or Tylenol as needed for fever, chills, body aches or pain. Children 5 years old should not be given ldvu-ulw-boqkhxk cough and cold medications such as guaifenesin and dextromethorphan. If you're over age 5, you may try luik-vxi-fnvphfz cold medications such as guaifenesin and dextromethorphan, or multi-symptom cold reliever such as Dayquil to help reduce the symptoms. Antibiotics have been prescribed. You should take these until completed and follow the directions. Antibiotics can sometimes cause upset stomach, and in rare cases, serious allergic reactions or serious gastrointestinal problems. If you start having severe abdominal pain, severe vomiting, or bloody diarrhea, you should be reevaluated by your physician or urgent care immediately. Follow up with your Primary Care Provider or return to clinic if symptoms do not improve within 3-5 days. If you develop severe symptoms such as shortness of breath, repeated vomiting, coughing up blood, or chest pain you should go to the emergency room or call 911 11/16/2024 Parotid discomfort (ICD-10 - K11.9) some swelling not getting better 09/10/2024 Dyspnea (ICD-10 - R06.00) 09/10/2024 Hyperlipidemia (ICD-10 - E78.5) 11/16/2024 Shoulder pain, right (ICD-10 - M25.511) failed on PT calling back if want shoulder injection- radiology 09/10/2024 Anemia (ICD-10 - D64.9) Plan Of Treatment Pending Test Test Name Order Date CMP (COMPLETE METABOLIC PANEL) HEMOGLOBIN A1C (GLYCO) 09/10/2024 LIPID PANEL (CHOL/TRIG/HDL/LDL) 09/10/20 CBC WITH DIFF 09/10/2024 Dressing/Splint-performed 03/23/2025 CREATININE 07/31/2024 PSA, TOTAL 09/10/2024 MRI Arthrogram RT Shoulder 03/31/2023 MRI Arthrogram RT Shoulder 05/09/2023 STOOL OCCULT BLOOD 09/10/2024 XR Hip 2-3 Views Right 11/16/2024 BLEEDING TIME 05/15/2024 CBC AUTO DIFF 05/15/2024 Covid-19 PCR ([facility]) 05/18/2024 PROF 14(COMP METB) 05/15/2024 PROTIME 05/15/2024 PTT 05/15/2024 CT ABD and PELV W CON 07/29/2024 MRI SHOULDER RT WO CON 05/31/2023 US NILSA DOP LEG LT 06/04/2024 US NILSA DOP LEG RT 06/04/2024 US VENOUS DOPPLER L ARM 12/23/2024 THYROID PANEL (T4/TSH/FREE T3) XR SHOULDER RT 2V or > 03/28/2023 PSA, SCREENING 06/03/2025 Insurance Providers Payer Name Payer Address Payer Phone Subscriber Number Group Number Insured Name Patient Relationship to Insured Coverage Start Date Coverage End Date [place]IC[place] [address] [place] [place] [address] [id number] Wally Woodall Self - patient is the insured [employer] SU[employer]LEMENT [address] [address] [place], [place] [id number] Wally Woodall Self - patient is the insured Medications Administered Medication Instructions Date of Administration Dosage Notes Ceftriaxone 1 gram 03/17/2025 1 g Ceftriaxone 1 gram 03/19/2025 1 g Lidocaine HCl 03/17/2025 2.1 mL Lidocaine HCl 03/19/2025 2.1 mL Medical (General) History Medical History History ICD Code History of generalized anxiety disorder History of arthritis Chest wall pain R07.89 Chest pain R07.9 Diverticulosis K57.90 Diplopia H53.2 Chronic obstructive pulmonary disease wi th (acute) exacerbation J44.1 Incisional hernia K43.2 Aortic valve replaced Z95.2 AF (paroxysmal atrial fibrillation) I48. 0 Gastric ulcer K25.9 Headache R51 Other iron deficiency anemia D50.8 Internal hemorrhoids K64.8 Colon polyps K63.5 Warthin tumor D11.9 Palpitations R00.2 Knee pain M25.569 Dyspnea R06.00 Disc disease, degenerative, cervical M50 .30 Eczema L30.9 Hypertension I10 Ganglion cyst M67.40 Seborrheic keratosis L82.1 Umbilical hernia K42.9 Plantar fasciitis M72.2 Osteoarthritis M19.90 Surgical History Surgery Date(Month/Year) History of cholecystectomy History of hernia repair Umbilical History of sinus surgery Right Knee Surgery Left & Right rotator Cuff Open Heart Surgery- [facility]ve [facility]2018 Hospitalization History Reason Date(Month/Year) See above
--- OUTSIDE RECORDS SUMMARY | 2025-06-04 15:40 | XMS_ITS | Clinical Summary ---
Author Organization [facility] Address [address] [place] [id number] Care Team Providers Care Dining Car Conductor Name Role Phone Aniceto Pearl MD Primary Care Provider [phone] Kenyatta Dumont Unavailable Juan F Mckinney MD Unavailable Aniceto Pearl MD Unavailable [phone] Aniceto Pearl MD Unavailable [phone] Allergies Active Allergy Reactions Criticality Noted Date Comments Amoxicillin Diarrhea Low 12/08/2024 Hydrocodone-Acetaminophen Unknown 12/08/2024 Lisinopril Cough 04/26/2017 Oxycodone Itching 06/10/2023 Medications Cholecalciferol , Vitamin D3, 50 mcg (2,000 unit) cap Take 1,000 Units by mouth twice daily. Active ubidecarenone/v itamin E mixed (COQ10 SG 100 ORAL) Take 1 capsule by mouth once daily. Active psyllium husk, bulk, 100 % powd 1 teaspoonful twice daily. Active tolnaftate (FORMULA 3 TOPICAL) Apply 1 application to affected area once daily. Active cyanocobalamin, vitamin B-12, (VITAMIN B-12 SUBLINGUAL) Dissolve 1 Dose under the tongue once daily. Active OTC PRODUCT 0.9% NaCl Sinus Rinse Active calcium citrate/vitamin D3 (CALCIUM CITRATE + ORAL) Take by mouth twice daily. Pt takes 2 capsule by mouth twice per day. Active olopatadine (PATADAY TWICE DAILY RELIEF) 0.1 % ophthalmic solution Use 1 Drop in both eyes twice daily. 04/12/20 21 Active azithromycin (ZITHROMAX) 500 mg tablet Take 1 tablet by mouth once daily. Take one tablet 60 minutes prior to procedure. 1 tablet 03/23/20 22 Active ve-ze-Z-theanin e-herb no.310 (AIRBORNE EVERYDAY STRESS AWAY) 1,000 mg-200 mg-360 mg pwpk Take by mouth. 09/09/20 18 Active acetaminophen (TYLENOL) 325 mg tablet Take 650 mg by mouth as needed for pain. 09/09/20 18 Active sodium chloride (SALINE MIST NASAL) Use in the nose. 08/28/20 18 Active OTC PRODUCT once daily. OTC Force Factor take 3 tablet once per day Active aspirin, enteric coated (ASPIRIN, ENTERIC COATED) 81 mg EC tablet Take 81 mg by mouth once daily. Active iron bisgly,ps-FA-B- C#12-succ 65 mg-65 mg -1,000 mcg (24) tab Take 65 mg by mouth once weekly 08/13/20 23 Active furosemide (LASIX) 20 mg tablet Take 20 mg by mouth once daily. Active simvastatin (ZOCOR) 20 mg tablet daily at bedtime. 07/08/20 24 Active MULTIVITAMIN ORAL Take by mouth. Activ e irbesartan (AVAPRO) 300 mg tabletIndicatio ns:Essential hypertension Take 1 tablet by mouth daily at bedtime. 90 tablet 3 04/12/20 25 Active metoprolol succinate ER (TOPROL XL) 50 mg 24 hr tablet Take 50 mg by mouth once daily. Active docosahexaenoic acid/epa (FISH OIL ORAL) Take 1,400 mg by mouth twice daily. 023 Discontinued metoprolol succinate ER (TOPROL XL) 25 mg 24 hr tablet Take 1 tablet by mouth every evening. 90 tablet 3 12/08/19 25 025 Discontinued sulfamethoxazol e-trimethoprim (BACTRIM DS) 800-160 mg per tablet Take 1 tablet by mouth two times a day. 20 tablet 03/24/20 25 025 Discontinued cefdinir (OMNICEF) 300 mg capsule Take 2 capsules by mouth once daily. 20 capsule 03/24/20 25 025 Discontinued Active Problems Patient Care Coordination No te Formatting of this note migh t be different from the original. Indication for Surgery: Aortic regurgitation, ascending aortic aneurysm and aortic root anuerysm Preop LVEF: 55% RVF: Normal EKG: SR CATH: CX, RCA mild luminal irregularity CARDS: Nav Dumont Postop LVEF: Normal RVF: Normal PMH/PSHx: CAD (mild), HTN, HPL, GIB (bleeding ulcer) Preoperative Hospital Course: 72 yo male with aortic insufficiency and ascending aortic aneurysm. Echo from May, identified worsening AI which was confirmed by NOREEN. Increased symptoms of lightheadedness (without syncope) and palpitations which has been bothersome for him. Reports rare occurrences of ELLIS, without limit his ADL's. Leg swelling in the past, but notes this has significantly improved since losing ~ 20 lbs and being on lasix for the past 2 years. Airway Difficulty: Grade I - No special instrumentation Pacing Wires: No Surgeries and Major Events: 08/12/2018: Bio Bentall (Aortic valve replacement with 27 CE valve (bio), root replacement & ascending replacement with 28 gelweave graft) A/P of Major Active Problems: Rt large PtX -complete lung collapse, s/p pigtail placement 08/13. Transferred to floor 08/14 (POD#2) Signout: - R pigtail placed 08/13 for pneumo then kept for drainage. Removed 08.18.2018 without incident. CXR stable, small right apical pneumo. - s/p Bio Bentall: Surg path reviewed. No inpatient imagining needed. - pAF: Developed 08/15 0100 and self converted to NSR without pause 0230. Continue BB. Add po Mg. Currently in SR s/p DCCV on 08.19.2018. On po amio, warfarin. - FVO: start IV lasix. (+) 2.6 kg - BC/urine culture sent 08/14: Pending- NGTD on 08.20.2018. Urine culture was (- ). (sent because pt. felt chilled/sweats with A-fib episode). -Double vision: started after DCCV (immediately). Maybe 2/2 anesthesia- now resolved (no further episodes) - Dispo: Discharge today 08.20.2018. Lives in [place], [place] with (she has early dementia). CM following. No skilled needs anticipated. OPD/cards/CTS f/u with CT scan all requested. Discharge Planning: Anticipated Discharge Date: 08.20.2018. Barriers to Discharge: No Barriers to Discharge Care Management Discharge Needs: Needs Prior to Discharge: To Be Determined Problem Noted Date Diagnosed Date Dry eye syndrome of bilateral lacrimal glands Dry eye 12/22/2024 Meibomian gland dysfunction (MGD) of upper and lower lids of both eyes 12/22/2024 Dermatochalasis of both upper eyelids 12/22/2024 Pseudophakia 12/22/2024 S/P right rotator cuff repair 07/08/2023 Traumatic complete tear of right rotator cuff Transition of care performed with sharing of clinical summary 08/15/2018 Overview (08/20/2018): Indication for Surgery: Aortic regurgitation, ascending aortic aneurysm and aortic root anuerysm Preop LVEF: 55% RVF: Normal EKG: SR CATH: CX, RCA mild luminal irregularity CARDS: Nav Dumont Postop LVEF: Normal RVF: Normal PMH/PSHx: CAD (mild), HTN, HPL, GIB (bleeding ulcer) Preoperative Hospital Course: 72 yo male with aortic insufficiency and ascending aortic aneurysm. Echo from May, identified worsening AI which was confirmed by NOREEN. Increased symptoms of lightheadedness (without syncope) and palpitations which has been bothersome for him. Reports rare occurrences of ELLIS, without limit his ADL's. Leg swelling in the past, but notes this has significantly improved since losing ~ 20 lbs and being on lasix for the past 2 years. Airway Difficulty: Grade I - No special instrumentation Pacing Wires: No Surgeries and Major Events: 08/12/2018: Bio Bentall (Aortic valve replacement with 27 CE valve (bio), root replacement & ascending replacement with 28 gelweave graft) A/P of Major Active Problems: Rt large PtX -complete lung collapse, s/p pigtail placement 08/13. Transferred to floor 08/14 (POD#2) Signout: - R pigtail placed 08/13 for pneumo then kept for drainage. Removed 08.18.2018 without incident. CXR stable, small right apical pneumo. - s/p Bio Bentall: Surg path reviewed. No inpatient imagining needed. - pAF: Developed 08/15 100 and self converted to NSR without pause 0230. Continue BB. Add po Mg. Currently in SR s/p DCCV on 08.19.2018. On po amio, warfarin. - FVO: start IV lasix. (+) 2.6 kg - BC/urine culture sent 08/14: Pending- NGTD on 08.20.2018. Urine culture was (- ). (sent because pt. felt chilled/sweats with A-fib episode). -Double vision: started after DCCV (immediately). Maybe 2/2 anesthesia- now resolved (no further episodes) - Dispo: Discharge today 08.20.2018. Lives in [place], [place] with (she has early dementia). CM following. No skilled needs anticipated. OPD/cards/CTS f/u with CT scan all requested. Discharge Planning: Anticipated Discharge Date: 08.20.2018. Barriers to Discharge: No Barriers to Discharge Care Management Discharge Needs: Needs Prior to Discharge: To Be Determined Paroxysmal atrial fibrillation 08/15/2018 Overview (08/19/2018): History: Post-op problem. Developed 08/15 [id number]. Self-terminated without conversion pause after IV Mg. And then again at 11:00 pm on 08.17.2018. Assessment: Currently SR (s/p DCCV) on 08.19.2018. On po BB, amio. Plan: Continue low dose BB, po amio. Start warfarin today 08.19.2018. Monitor for recurrence. Discharge planning issues 08/11/2018 Overview (08/20/2018): Discharge today 08.20.2018 as rhythm has remained stable. Lives in [place], [place] with . CM following. No skilled needs anticipated. with early stage dementia. OPD/cards/CTS f/u with CT scan all requested. Discharge Planning: Anticipated Discharge Date: 08.20.2018 Barriers to Discharge: No Barriers to Discharge Care Management Discharge Needs: Needs Prior to Discharge: Ready for Discharge Nonrheumatic aortic valve insufficiency 05/26/20 18 Thoracic aortic aneurysm without rupture 018 Overview (08/19/2018): History: pre-op CT scan showing mildly ectatic root (4.6 x 4.3 cm) and mid ascending aorta (4.4 cm). Assessment: 08/12/18: BioBentall (#27 CE valve), #28 Gelweave aortic root/ascending aorta replacement. 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 Assessment: 08/12/2018: Bio Parminderall (Aortic valve replacement with 27 CE valve (bio), root replacement & ascending replacement with 28 gelweave graft). Surg path: Mild fibrosis. Plan: Continue ASA. Hypertension Overview (08/19/2018): History: Pre-op problem. Home meds Losartan Assessment: SBP 100-130's with current treatment. On BB, IV lasix, ARB. Plan: Continue IV Lasix, BB, low dose Cozaar. Up-titrate meds if remains uncontrolled. HLD (hyperlipidemia) Overview (08/19/2018): History: pre-op problem. Home med: Vitamin supplements, CQ10 and saw palmetto at home. NO statin Assessment: Pre-op lipid panel at goal: Total Chol: 121, Tri, HD: 34, LDL 74. LFT's normal post-op Plan: Continue pre op meds at d/c History of GI bleed Overview (08/11/2018): history of bleeding ulcer Resolved Problems Problem Noted Date Diagnosed Date Resolved Date Volume overload 08/15/2018 08/20/2018 Overview (08/19/2018): History: Post-op problem. Weight up as much as 7.2 kg Assessment: (+) 3.2 kg. On IV lasix. Plan: Replace electrolytes prn. Montior labs, I/O. Monitor daily weight. Continue fluid restriction. Mobilize. Atelectasis 08/15/2018 08/19/2018 Overview (08/15/2018): History: Post-op problem. Assessment: CXR 08/15 with sm effusions/bibasilar atelectasis. Plan: Mobilize now that on tele. Encourage PEP, cough and deep breathing. Pain control. Large RT penumothorax. 08/13/201808/20 Overview (08/19/2018): History: Post-op problem. Developed near complete right pneumothorax 08/13 Assessment: CXR with resolved pneumo. On RA. Right pigtail removed 08.18.2018 without incident. Plan: Post-pull repeat CXR ipending. Continue ELECTRON[employer]ARF[employer] TECHNICAL for pain related to catheter. Acute post-operative pain 08/12/2018 Overview (08/15/2018): History: post OHS Assessment: pain is well controlled with current regimen. Pt. requests ELECTRON[employer] WARF[employer] TECHN[employer] continue. Does have itching when takes Oxycodone, but states all pain meds causes this for him (no rash noted) Plan: Continue current regimen with lidoderm patches, Tylenol, Oxycodone/Tramadol, and [employer]NICAL. Add Benadryl. Bowel regimen in place. Cardiac insufficiency 08/12/20182017 Overview (08/13/2018): Normal biventricular function pre/post. On epinephrine from OR. Weaned to off. Mentating well. UO marginal (fluids administered) CVP wnl. ScvO2 71 LA wnl Postoperative hypotension 08/12/2018 Overview (08/12/2018): A/P: MAP 74 mmHg with goal 65-75 mmHg. On levophed. Wean able Stress hyperglycemia 08/12/2018 018 Overview (08/14/2018): SSI On mechanically assisted ventilation 08/12/2018 08/13/2018 Overview (08/12/2018): A/P Intubated and sedate from OR. WTE. Secondary thrombocytopenia 08/12/2018 0 08/19/2018 Overview (08/15/2018): History: post-op problem. Plt count trended as low as 68k 08/14. Assessment: Improving to 77k. Plan: Continue ASA, SQ Heparin as tolerating with no further decline in plt count. Preop testing 08/11/2018 08/15/2018 Overview (08/11/2018): [facility] Surgeon: Aniceto Briggs M.D. Informed Consent Completed: Yes STS [...] aortic aneurysm Dilated aortic root 08/15/20 18 Encounters Date Type Department Care Team Description 05/10/2025 2:15 PM EDT Office Visit Plastic Surgery [address] [place] [address] Tisha Lowery MD Brow ptosis, bilateral (Primary Dx); Dermatochalasis of both upper eyelids 05/08/2025 Travel 04/16/2025 Telephone Plastic Surgery [address] [place] [address] Tisha Lowery MD 04/12/2025 Refill Preventive Cardiology [address] [place] [address] Joyce Berg APRN.JOURNEYMAN POWER PLANT OPERATOR Refill Request 04/05/2025 Patient Msg Orthopaedics [address] [place] [address] Provider, [facility] xray 03/25/2025 Orders Only Orthopaedics [address] [place] [address] Yann Richardson MD Chronic right shoulder pain (Primary Dx) 03/25/2025 Orders Only [facility] [address] [place] [address] Santiago Gonzalez MD Chest pain, unspecified type (Primary Dx) 03/24/2025 11:00 AM EDT Office Visit Preventive Cardiology [address] [place] [address] Ariella Norwood APRN.TRACEY Essential hypertension (Primary Dx); Hyperlipidemia, unspecified hyperlipidemia type; S/P AVR 03/23/2025 Travel from Last 3 Months Immunizations Immunization Administration Dates Next Due influenza (HD-IIV3) vaccine, age 65+ yr, high dose, trivalent, PF (FLUZONE HIGH-DOSE) 07/22/2018 influenza (IIV3) vaccine, tr ivalent, PF (AFLURIA, FLUARIX, FLULAVAL, FLUVIRIN, FLUZONE) 12/05/2015 influenza (IIV4) vaccine, qu adrivalent (AFLURIA, FLULAVAL, FLUZONE) 10/05/2014 influenza (aIIV3) vaccine, a ge 65+ yr, trivalent, PF (FLUAD) 10/11/2017 pneumococcal conjugate (PCV1 3) vaccine, 13 valent (PREVNAR 13) 06/10/2017 tetanus toxoid (TT) vaccine 08/28/2005 Family History Medical History Relation Comments Cancer Father Prostate Stroke Father Alzheimer's Disease Mother Hypertension Mother Alzheimer's Disease Sister 1 Other Sister 2 Jeri Teran's Dis ease Relation Status Comments Father (Age 82) Mother (Age 89) Sister 1 Alive Sister 2 (Age late 60's) Social History Tobacco Use Types Packs/Day Years Used Date Smoking Tobacco: Former Cigarettes 1.5 25 0 08/11/1965 - 08/11/1990 Smokeless Tobacco: Never Comments:Quit over 30 yrs ag o Alcohol Use Standard Drinks/Week Comments Yes 1 (1 standard drink = 0.6 oz pur e alcohol) social PHQ-2 Answer Date Recorded PHQ-2 score 1 02/07/2023 Area Deprivation Index Answer Date Jimmie rded National Score (1-100), lower number is lower ri sk 39 07/08/2023 State Score (1-10), lower number is lower risk 2 07/08/2023 Data from: https://www.neighborhoodatlas.medicine.[facility]/. Last address used for calculation [address] 07/08/2023 Sex and Gender Information Value Date Recorded Sex Assigned at Male 07/07/2019 6:25 PM EDT Legal Sex Male 9:23 AM EST Gender Identity Male 07/07/2019 6:25 PM EDT Sexual Orientation Straight 07/07/2019 6: 25 PM EDT Occupation Industry Job Start Date Job End Date retired Not on file Not on file Not on file Last Filed Vital Signs Vital Sign Reading Time Taken Comments Blood Pressure 103/78 05/10/2025 1:45 PM EDT Pulse 61 05/10/2025 1:45 PM EDT Temperature 37.1 C (98.8 F) 11/07/2018 2:53 PM EST Respiratory Rate 16 08/20/2018 11:17 AM EDT Oxygen Saturation 95% 12/01/2024 10:25 AM EST Inhaled Oxygen Concentration - - Weight 83 kg (183 lb) 05/10/2025 1:45 PM EDT Height 177.8 cm (5' 10 ) 05/10/2025 1:45 PM EDT Body Mass Index 26.26 05/10/2025 1:45 PM EDT Plan of Treatment Upcoming Encounters Date Type Department Care Team (Latest Contact Info) Description 06/25/2025 9:40 AM EDT PAT Pre Anesthesia [address] [place] [address] 1, [facility] [address] [place] [address] pre op 07/16/2025 11:30 AM EDT Hospital Encounter Admitting [address] [place] [address] Tisha Lowery MD [address] [place] [address] Brow ptosis, 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], Dermatochalasis of both upper eyelids [H02.831, H02.834] 07/16/2025 11:30 AM EDT - 07/16/2025 2:00 PM EDT Surgery Admitting [address] [place] [address] Tisha Lowery MD [facility] [place] [address] BROWLIFT 07/29/2025 11:00 AM EDT Office Visit Plastic Surgery [address] [address] Savanah Palomares, IMPLEMENTATION MANAGER.JOURNEYMAN POWER PLANT OPERATOR [address] [place] [address] post op 10/13/2025 10:45 AM EST Procedure Cardiology [address] [place] [address] Chest pain, unspecified type [R07.9] 10/13/2025 11:15 AM EST Office Visit [facility] [address] [place] [address] Santiago Gonzalez MD [address] [place] [address] New Consult Scheduled Procedures Name Priority Associated Diagnoses Date/Ti me BROWLIFT Brow ptosis, bilateral Dermatochalasis of both upper eyelids 07/16/2025 11:30 AM EDT BLEPHAROPLASTY UPPER BILATERAL Brow ptosis, bilateral Dermatochalasis of both upper eyelids 07/16/2025 11:30 AM EDT Health Maintenance Due Date Last Done Comments Annual PCP Team Chronic Dise ase Visit 1963 Anxiety Screening 1963 Depression Screening 1963 Medicare Annual Wellness Visit 08/25/2013 Advance Directive Discussion 11/25/2024 Covid-19 Vaccine (2023-2 5 season) 2025 11/13/2024, 09/03/2023, 04/11/2023, Additional history exists Influenza Vaccine (#1) 2025 , 08/15/2023, 09/11/2022, Additional history exists Diabetes Screening 03/24/2028 03/24/2025, 0 12/28/2024, 12/28/2024, Additional history exists DTaP,Tdap,Td Vaccine (4 - Td or Tdap) 03/08/2035 03/08/2025, 02/12/2024, 08/12/2020, Additional history exists Shingrix Vaccine Completed 09/21/2020, , 07/22/2020 Pneumococcal Vaccine: 50+ Completed 09/24/2020, RSV Vaccine Completed 08/08/2023 Hepatitis C Screening Completed 12/28/2024 , 12/28/2024, 12/28/2024, Additional history exists Goals Goal Patient Goal Type Associated Problems Recent Progress Patient-Stated? Author Blood Pressure < 130/80 Blood Pressure 103/78( 025 1:45 PM EDT) No Ariella Norwood APRN.JOURNEYMAN POWER PLANT OPERATOR Medical Devices Implanted Type Area Spinning Frame Tender Device Identifier Shelf Expiration Date Model / Serial / Lot Graft Gelweave Valsalva 30mm 15cm Cardiovascular Woven Aortic Root - [id number] Implanted:Qty: 1 on 08/12/2018 by Aniceto Briggs MD at [facility] Graft N/A: Artery - Aorta [employer] 04/24/2021 [id number] / [id number] Thk1.65mm Ptfe 4x.5in Cardiovascular Sterile - [id number] Implanted:Qty: 1 on 08/12/2018 by Aniceto Briggs MD at [facility] Implant N/A: Heart BARD [employer] 04/21/2023 [id number] / / [id number] Valve Aort 27mm Crp-Ed Thfx - [id number] Implanted:Qty: 1 on 08/12/2018 by Aniceto Briggs MD at [facility] Valve N/A: Heart [employer] SANDI 02/10/2022 [id number] / [id number] / Procedures Procedure Name Priority Date/Time Associated Diagnosis Comments BASIC METABOLIC PANEL Routine 03/24/2025 12:34 PM EDT Essential hypertension Hyperlipidemia, unspecified hyperlipidemia type HEPATITIS C ANTIBODY IA WITH CONFIRMATION Routine 12/28/2024 1:09 PM EST Brow ptosis, bilateral from Last 3 Months or Most Recently Relevant to Health Maintenance Results * (ABNORMAL) BASIC METABOLIC PANEL (03/24/2025 12:34 PM EDT) Pathologist [facility] Glucose 93 74 - 99 mg/dL 03/24/2025 8:23 PM EDT [facility] Comment: The [place] Diabetes Association (ADA) provides guidance for cutoff [...] Standards of Medical Care in Diabetes 2016, [place] Diabetes Association. Diabetes Care. 2016.39(Suppl 1). BUN 14 9 - 24 mg/dL 03/24/2025 8:23 PM EDT [facility] Creatinine 1.26(H) 0.73 - 1.22 mg/dL 03/24/2025 8:23 PM EDT [facility] Sodium 141 136 - 144 mmol/L 03/24/2025 8:23 PM EDT [facility] Potassium 4.5 3.7 - 5.1 mmol/L 03/24/2025 8:23 PM EDT [facility] Chloride 106 98 - 107 mmol/L 03/24/2025 8:23 PM EDT [facility] CO2 24 22 - 30 mmol/L 03/24/2025 8:23 PM EDT [facility] Anion Gap 11 8 - 15 mmol/L 03/24/2025 8:23 PM EDT [facility] Calcium, Total 9.9 8.5 - 10.2 mg/dL 03/24/2025 8:23 PM EDT [facility] Estimated Glomerular Filtration Rate 58(L) >=60 mL/min/1. 73m 03/24/2025 8:23 PM EDT [facility] Comment:Estimated Glomerular Filtration Rate (eGFR) is calculated using the 2020 CKD-EPI creatinine equation. This equation utilizes serum creatinine, sex, and age as parameters. The creatinine assay has traceable calibration to isotope dilution- mass spectrometry. Refer to KDIGO guidelines for clinical interpretation. In patients with unstable renal function, e.g. those with acute kidney injury, the eGFR may not accurately reflect actual GFR. Blood BLOOD SPECIMEN / Unknown Venipuncture / Unknown 03/24/2025 12:34 PM EDT 03/24/2025 12:34 PM EDT Ariella Norwood APRN.CNP LABORATORY Final Resul t Performing Organization Address [facility]/ZIP Co de Phone Number [facility] [address] * HEPATITIS C ANTIBODY IA WITH CONFIRMATION (12/28/2024 1:09 PM EST) Hep C Antibody IA Negative Negative 12/28/2024 5:11 PM EST [facility] Comment:The result suggests no evidence of active infection with Hepatitis C virus. Should recent infection be suspected, repeat testing may be considered 4-6 weeks after this draw. Blood BLOOD SPECIMEN / Unknown Venipuncture / Unknown 12/28/2024 1:09 PM EST 12/28/2024 1:09 PM EST Tisha Prince MD LABORATORY Final Res ult [facility] [address] [facility] [address] [place] [address], [place] from Last 3 Months or Most Recently Relevant to Health Maintenance Insurance MEDICARE [employer] [facility] Address: [address] [place] [phone] MEDICARE Advance Directives Documents on File Type Date Recorded Patient Decorating Equipment Setter Expl anation Advance Directive(s) 08/11/2018 5:51 PM Care Teams Dining Car Conductor Relationship Specialty Start Date End Date Aniceto Pearl MD [address] [place] [address] PCP - General 03/07/01 Kenyatta Dumont [address] [place] [address] Referring Cardiology 05/29/18 Juan F Mckinney MD [address] [place] [address] Primary Staff Physician Cardiology 05/10/20 Aniceto Pearl MD [address] [place] [address] Referring Family Medicine 01/08/23 Aniceto Pearl MD [address] [place] [address] Referring Family Medicine 06/19/23
--- OUTSIDE RECORDS SUMMARY | 2025-06-04 15:40 | XMS_ITS | Patient Health Record ---
Author Organization [facility] Address [address] [place] [address] Care Team Providers Care Wildlife Veterinarian Name Role Phone Waqas Salmeron Unavailable [phone] Aniceto Pearl Unavailable Unavailable Jannie Savage Unavailable [phone] Allergies Allergen (clinical drug ingredient) Drug/Non Drug Allergy documented on EMR Reaction Allergy Type Onset Date Status lisinopril cough Drug Allergy Active Reason For Referral No Information Medications Medication SIG (Take, Route, Frequency, Duration) Notes Start Date End Date Status irbesartan Active furosemide Active metoprolol Active Social History Tobacco Use: Social History Observation Description Date Details (start date - stop date) Never Smoker NA - NA AUDIT-C (Standard) Question Answer Notes Did you have a drink containing alcohol in the p ast year? No Points 0 Interpretation Negative Tobacco Control (Standard) Question Answer Notes Tobacco use: Nonsmoker Problems Problem Type SNOMED Code ICD Code Onset Dates Problem Status W/U Status Risk Notes Problem Arthritis of carpometacarpal (CMC) joint of left thumb (M18.12) Active confirmed Vital Signs Height 5'10 in 02/01/2025 Weight 180 lbs 02/01/2025 BMI 25.82 02/01/2025 Encounters Encounter Location Date Provider Diagnosis [address] [place] [address] [place] [address] 02/01/2025 Jannie Savage Arthritis of carpometacarpal (CMC) joint of left thumb M18.12 Assessments Encounter Date Diagnosis (ICD Code) Assessment Notes Treatment Notes Treatment Clinical Notes Section Notes 02/01/2025 Arthritis of carpometacarpal (CMC) joint of left thumb (ICD-10 - M18.12) Left thumb CMC osteoarthritis 02/01/2025 Other Today I reviewe d patient's x-rays with him and discussed nonsurgical management for his CMC arthritis. He has had previous bleeding ulcers with NSAID use and is not a good candidate for this. We did discuss corticosteroid injection versus referral to an upper extremity specialist for surgical consideration. We also discussed that his veins are not related to this condition. He declines injection or referral today and would like to call us on as-needed basis. Left thumb CMC osteoarthritis Plan Of Treatment No Information Insurance Providers Payer Name Payer Address Payer Phone Subscriber Number Group Number Insured Name Patient Relationship to Insured Coverage Start Date Coverage End [place] [address] [place] [address] [id number] DEBORAH BARROW Self - patient is the insured [facility] [address] [address] [place] [address] [id number] DEBORAH BARROW Self - patient is the insured Medical (General) History Medical History History ICD Code Heart problems: High Blood Pressure Drug Allergies Surgical History Surgery Date(Month/Year) Open heart, aortic valve replaced Rt thumb Cecilio rotator cuff
--- OUTSIDE RECORDS SUMMARY | 2025-06-04 15:40 | XMS_ITS | Encounter Summary ---
Author Organization [facility] Address [address] [place] [address] Care Team Providers Care Instructor Private Name Role Phone Aniceto Pearl MD Primary Care Provider [phone] Kenyatta Dumont Unavailable Juan F Mckinney MD Unavailable Aniceto Pearl MD Unavailable [phone] Aniceto Pearl MD Unavailable [phone] Source Comments In the event this information is protected by the Federal Confidentiality of Alcohol and Drug AbusePatient Records regulations: The Federal rules restrict any use of the information to criminally investigate or prosecute any alcohol or drug abuse patient.[facility] Encounter Details Date Type Department Care Team (Late st Contact Info) Description 10/19/2019 Patient Msg Preventive Cardiology [address] [place], [place] [id number] Juan F Mckinney MD [address] [place] [address] Blood test results Social History Tobacco Use Types Packs/Day Years [...] 9:40 AM EDT PAT Pre Anesthesia [address] [place] [address] 1, Pacc [place] [address] [place] [address] pre op 07/16/2025 11:30 AM EDT Hospital Encounter Admitting [address] [place] [address] Tisha Lowery MD [address] [place] [address] Brow ptosis, 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], Dermatochalasis of both upper eyelids [H02.831, H02.834] 07/16/2025 11:30 AM EDT - 07/16/2025 2:00 PM EDT Surgery Admitting [address] [place] [address] Tisha Lowery MD [facility] [place] [address] BROWLIFT 07/29/2025 11:00 AM EDT Office Visit Plastic Surgery [address] [address] Savanah Palomares, ISIDRO.WORKERS COMPENSATION ATTORNEY [address] [place] [address] post op 10/13/2025 10:45 AM EST Procedure Cardiology [address] [place] [address] Chest pain, unspecified type [R07.9] 10/13/2025 11:15 AM EST [facility] Visit [facility] [address] [place] [address] Santiago Gonzalez MD [address] [place] [address] New Consult Scheduled Procedures Name Priority Associated Diagnoses Date/Ti me BROWLIFT Brow ptosis, bilateral Dermatochalasis of both upper eyelids 07/16/2025 11:30 AM EDT BLEPHAROPLASTY UPPER BILATERAL Brow ptosis, bilateral Dermatochalasis of both upper eyelids 07/16/2025 11:30 AM EDT documented as of this encounter Visit Diagnoses Not on filedocumented in this encounter Care Teams Instructor Private Relationship Specialty Start Date End Date Aniceto Pearl MD [address] [facility] [place] [address] PCP - General 03/07/01 Kenyatta Dumont [address] [facility] [place] [address] Referring Cardiology 05/29/18 Juan F Mckinney MD [address] [place] [address] Primary Staff Physician Cardiology 05/10/20 Aniceto Pearl MD [facility] [facility] [place] [address] Referring Family Medicine 01/08/23 Aniceto Pearl MD [facility] W [facility] [place] [address] Referring Family Medicine 06/19/23 documented as of this encounter
--- OUTSIDE RECORDS SUMMARY | 2025-06-04 15:40 | XMS_ITS | Encounter Summary ---
Author Organization [facility] Address [address] [place] [address] Care Team Providers Care Naval Aircrewman Avionics Name Role Phone Aniceto Pearl MD Primary Care Provider [phone] Kenyatta Dumont Unavailable Juan F Mckinney MD Unavailable Aniceto Pearl MD Unavailable [phone] Aniceto Pearl MD Unavailable [phone] Source Comments In the event this information is protected by the Federal Confidentiality of Alcohol and Drug AbusePatient Records regulations: The Federal rules restrict any use of the information to criminally investigate or prosecute any alcohol or drug abuse patient.[facility] Encounter Details Date Type Department Care Team (Late st Contact Info) Description 07/16/2023 Patient Msg [facility] Primary Care [address] [facility] [address] [place] [address] Provider, [facility] checking in Social History Tobacco Use Types Packs/Day Years Used Date Smoking Tobacco: Former Cigarettes 1.5 25 0 08/11/1965 - 08/11/1990 Smokeless Tobacco: Never Comments:Quit over 30 yrs ag o Alcohol Use Standard Drinks/Week Comments Yes 6 (1 standard drink = 0.6 oz pur e alcohol) social PHQ-2 Answer Date Recorded PHQ-2 score 1 02/07/2023 Area Deprivation Index Answer Date Jimmie rded National Score (1-100), lower number is lower ri sk 39 07/08/2023 State Score (1-10), lower number is lower risk 2 07/08/2023 Data from: https://www.neighborhoodatlas.medicine.[facility]/. 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], Dermatochalasis of both upper eyelids [H02.831, H02.834] 07/16/2025 11:30 AM EDT - 07/16/2025 2:00 PM EDT Surgery Admitting [address] [place] [address] [place] [address] [place] [address] BROWLIFT 07/29/2025 11:00 AM EDT Office Visit Plastic Surgery [address] [address] Savanah Palomares APRN.DIRECTOR OF ENVIRONMENTAL SERVICES [address] [place] [address] post op 10/13/2025 10:45 AM EST Procedure Cardiology [address] [place] [address] Chest pain, unspecified type [R07.9] 10/13/2025 11:15 AM EST [facility] Visit [facility] [address] [place] [address] Santiago Gonzalez MD [address] [place] [address] New Consult Scheduled Procedures Name Priority Associated Diagnoses Date/Ti me BROWLIFT Brow ptosis, bilateral Dermatochalasis of both upper eyelids 07/16/2025 11:30 AM EDT BLEPHAROPLASTY UPPER BILATERAL Brow ptosis, bilateral Dermatochalasis of both upper eyelids 07/16/2025 11:30 AM EDT documented as of this encounter Visit Diagnoses Not on filedocumented in this encounter Care Teams Naval Aircrewman Avionics Relationship Specialty Start Date End Date Aniceto Pearl MD [address] [place] [address] PCP - General 03/07/01 Kenyatta Dumont [address] [place] [address] Referring Cardiology 05/29/18 Juan F Mckinney MD [address] [place] [address] Primary Staff Physician Cardiology 05/10/20 Aniceto Pearl MD [address] [facility] [place] [address] Referring Family Medicine 01/08/23 Aniceto Pearl MD [address] [facility] [place] [address] Referring Family Medicine 06/19/23 documented as of this encounter
--- OUTSIDE RECORDS SUMMARY | 2025-06-04 15:40 | XMS_ITS | Encounter Summary ---
Author Organization [facility] Address [address] [place] [address] Care Team Providers Care Insolvency Practitioner Name Role Phone Aniceto Pearl MD Primary Care Provider [phone] Kenyatta Dumont Unavailable Juan F Mckinney MD Unavailable Aniceto Pearl MD Unavailable [phone] Aniceto Pearl MD Unavailable [phone] Source Comments In the event this information is protected by the Federal Confidentiality of Alcohol and Drug AbusePatient Records regulations: The Federal rules restrict any use of the information to criminally investigate or prosecute any alcohol or drug abuse patient.[facility] Encounter Details Date Type Department Care Team (Late st Contact Info) Description 12/09/2024 Patient Msg [facility] [place] [address] [place] [place], [place] [id number] Provider, [facility] Dash Test Social History Tobacco Use Types Packs/Day Years [...] is lower risk 2 07/08/2023 Data from: https://www.neighborhoodatlas.medicine.[facility]/. 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], Dermatochalasis of both upper eyelids [H02.831, H02.834] 07/16/2025 11:30 AM EDT - 07/16/2025 2:00 PM EDT Surgery Admitting [address] [place] [address] Tisha Lowery MD [address] [place] [id number] BROWLIFT 07/29/2025 11:00 AM EDT Office Visit Plastic Surgery [address] [address] Savanah Palomares APRN.OPTICAL INSTRUMENT ASSEMBLY SUPERVISOR [address] [place] [address] post op 10/13/2025 10:45 AM EST Procedure Cardiology [address] [place] [address] Chest pain, unspecified type [R07.9] 10/13/2025 11:15 AM EST [facility] Visit [facility] [address] [place] [address] Santiago Gonzalez MD [address] [place] [address] New Consult Scheduled Procedures Name Priority Associated Diagnoses Date/Ti me BROWLIFT Brow ptosis, bilateral Dermatochalasis of both upper eyelids 07/16/2025 11:30 AM EDT BLEPHAROPLASTY UPPER BILATERAL Brow ptosis, bilateral Dermatochalasis of both upper eyelids 07/16/2025 11:30 AM EDT documented as of this encounter Goals Goal Patient Goal Type Associated Problems Recent Progress Patient-Stated? Author Blood Pressure < 130/80 Blood Pressure 103/78( 025 1:45 PM EDT) No Ariella Norwood, SCIENCE INTERPRETER.OPTICAL INSTRUMENT ASSEMBLY SUPERVISOR documented as of this encounter Visit Diagnoses Not on filedocumented in this encounter Care Teams Insolvency Practitioner Relationship Specialty Start Date End Date Aniceto Pearl MD [address] [place] [address] PCP - General 03/07/01 Kenyatta Dumont [address] [place] [address] Referring Cardiology 05/29/18 Juan F Mckinney MD [address] [place] [address] Primary Staff Physician Cardiology 05/10/20 Aniceto Pearl MD [address] [place] [address] Referring Family Medicine 01/08/23 Aniceto Pearl MD [address] [place] [address] Referring Family Medicine 06/19/23 documented as of this encounter
--- OUTSIDE RECORDS SUMMARY | 2025-06-04 15:40 | XMS_ITS | Encounter Summary ---
Author Organization [facility] Address [address] [place] [address] Care Team Providers Care Youth Leader Name Role Phone Aniceto Pearl MD Primary Care Provider [phone] Kenyatta Dumont Unavailable Juan F Mckinney MD Unavailable Aniceto Pearl MD Unavailable [phone] Aniceto Pearl MD Unavailable [phone] Source Comments In the event this information is protected by the Federal Confidentiality of Alcohol and Drug AbusePatient Records regulations: The Federal rules restrict any use of the information to criminally investigate or prosecute any alcohol or drug abuse patient.[facility] Encounter Details Date Type Department Care Team (Late st Contact Info) Description 07/13/2018 Patient Msg Medical Records [address] [place] [address] Provider, [facility] Medical Education Program Social History Tobacco Use Types Packs/Day Years Used Date Smoking Tobacco: Former Smokeless Tobacco: Never Alcohol Use Standard Drinks/Week [...] 9:40 AM EDT PAT Pre Anesthesia [address] [place] [address] 1, Pacc [place] [address] [place] [id number] pre op 07/16/2025 11:30 AM EDT Hospital Encounter Admitting [address] [place] [address] Tisha Lowery MD [address] [place] [address] Brow ptosis, 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], Dermatochalasis of both upper eyelids [H02.831, H02.834] 07/16/2025 11:30 AM EDT - 07/16/2025 2:00 PM EDT Surgery Admitting [address] [place] [address] Tisha Lowery MD [address] [place] [address] BROWLIFT 07/29/2025 11:00 AM EDT Office Visit Plastic Surgery [address] [address] Savanah Palomares, IT HELP DESK ASSOCIATE.BUSINESS MANAGER [address] [place] [address] post op 10/13/2025 10:45 AM EST Procedure Cardiology [address] [place] [address] Chest pain, unspecified type [R07.9] 10/13/2025 11:15 AM EST [facility] Visit [facility] [address] [place] [id number] Santiago Gonzalez MD [address] [place] [id number] New Consult Scheduled Procedures Name Priority Associated Diagnoses Date/Ti me BROWLIFT Brow ptosis, bilateral Dermatochalasis of both upper eyelids 07/16/2025 11:30 AM EDT BLEPHAROPLASTY UPPER BILATERAL Brow ptosis, bilateral Dermatochalasis of both upper eyelids 07/16/2025 11:30 AM EDT documented as of this encounter Visit Diagnoses Not on filedocumented in this encounter Care Teams Youth Leader Relationship Specialty Start Date End Date Aniceto Pearl MD [address] [place] [address] PCP - General 03/07/01 Kenyatta Dumont [address] [place] [address] Referring Cardiology 05/29/18 Juan F Mckinney MD [address] [place] [address] Primary Staff Physician Cardiology 05/10/20 Aniceto Pearl MD [address] [place] [address] Referring Family Medicine 01/08/23 Aniceto Pearl MD [address] [place] [address] Referring Family Medicine 06/19/23 documented as of this encounter
--- OUTSIDE RECORDS SUMMARY | 2025-06-04 15:40 | XMS_ITS | Encounter Summary ---
Author Organization [facility] Address [address] [place] [address] Care Team Providers Care Market Research Interviewer Name Role Phone Aniceto Pearl MD Primary Care Provider [phone] Kenyatta Dumont Unavailable Juan F Mckinney MD Unavailable Aniceto Pearl MD Unavailable [phone] Aniceto Pearl MD Unavailable [phone] Source Comments In the event this information is protected by the Federal Confidentiality of Alcohol and Drug AbusePatient Records regulations: The Federal rules restrict any use of the information to criminally investigate or prosecute any alcohol or drug abuse patient.[facility] Encounter Details Date Type Department Care Team (Late st Contact Info) Description 11/08/2018 Patient Msg Preventive Cardiology [address] [place] [address] Joyce Berg APRN.SKIMMER [address] [place] [address] labwork Social History Tobacco Use Types Packs/Day Years [...] 9:40 AM EDT PAT Pre Anesthesia [address] [place] [address] 1, Pacc Person [address] [facility] [place] [address] pre op 07/16/2025 11:30 AM EDT Hospital Encounter Admitting [address] [place] [address] Tisha Lowery MD [address] [place] [address] Brow ptosis, 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], Dermatochalasis of both upper eyelids [H02.831, H02.834] 07/16/2025 11:30 AM EDT - 07/16/2025 2:00 PM EDT Surgery Admitting [address] [place] [address] Tisha Lowery MD [address] [place] [address] BROWLIFT 07/29/2025 11:00 AM EDT Office Visit Plastic Surgery [address] [address] Savanah Palomares, ISIDRO.SKIMMER [address] [place] [address] post op 10/13/2025 10:45 AM EST Procedure Cardiology [address] [place] [address] Chest pain, unspecified type [R07.9] 10/13/2025 11:15 AM EST [facility] Visit [facility] [address] [place] [address] Santiago Gonzalez MD [address] [place] [address] New Consult Scheduled Procedures Name Priority Associated Diagnoses Date/Ti me BROWLIFT Brow ptosis, bilateral Dermatochalasis of both upper eyelids 07/16/2025 11:30 AM EDT BLEPHAROPLASTY UPPER BILATERAL Brow ptosis, bilateral Dermatochalasis of both upper eyelids 07/16/2025 11:30 AM EDT documented as of this encounter Visit Diagnoses Not on filedocumented in this encounter Care Teams Market Research Interviewer Relationship Specialty Start Date End Date Aniceto Pearl MD [address] [facility] [place] [address] PCP - General 03/07/01 Kenyatta Dumont [address] [facility] [place] [address] Referring Cardiology 05/29/18 Juan F Mckinney MD [address] [facility] [place] [address] Primary Staff Physician Cardiology 05/10/20 Aniceto Pearl MD [address] [facility] [address] Referring Family Medicine 01/08/23 Aniceto Pearl MD [address] [facility] [address] Referring Family Medicine 06/19/23 documented as of this encounter
--- OUTSIDE RECORDS SUMMARY | 2025-06-04 15:40 | XMS_ITS | Encounter Summary ---
Author Organization [facility] Address [address] [place] [address] Care Team Providers Care Machine Molder Squeeze Name Role Phone Aniceto Pearl MD Primary Care Provider [phone] Kenyatta Dumont Unavailable Juan F Mckinney MD Unavailable Aniceto Pearl MD Unavailable [phone] Aniceto Pearl MD Unavailable [phone] Source Comments In the event this information is protected by the Federal Confidentiality of Alcohol and Drug AbusePatient Records regulations: The Federal rules restrict any use of the information to criminally investigate or prosecute any alcohol or drug abuse patient.[facility] Encounter Details Date Type Department Care Team (Late st Contact Info) Description 10/13/2018 Patient Msg Preventive Cardiology [address] [place] [address] Joyce Berg APRN.DISK RECORDIST [address] [place] [address] labs from 11/16 Social History Tobacco Use Types Packs/Day Years [...] 9:40 AM EDT PAT Pre Anesthesia [address] [place] [address] 1, Pacc [place] [address] [place] [address] pre op 07/16/2025 11:30 AM EDT Hospital Encounter Admitting [address] [place] [address] Tisha Lowery MD [address] [place] [address] Brow ptosis, 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], Dermatochalasis of both upper eyelids [H02.831, H02.834] 07/16/2025 11:30 AM EDT - 07/16/2025 2:00 PM EDT Surgery Admitting [address] [place] [address] Tisha Lowery MD [address] [place] [address] BROWLIFT 07/29/2025 11:00 AM EDT Office Visit Plastic Surgery [address] [address] Savanah Palomares, SUPERINTENDENT GEOPHYSICAL LABORATORY.DISK RECORDIST [address] [place] [address] post op 10/13/2025 10:45 AM EST Procedure Cardiology [address] [place] [address] Chest pain, unspecified type [R07.9] 10/13/2025 11:15 AM EST Office Visit [facility] [address] [place] [address] Santiago Gonzalez MD [address] [place] [address] New Consult Scheduled Procedures Name Priority Associated Diagnoses Date/Ti nm BROWLIFT Brow ptosis, bilateral Dermatochalasis of both upper eyelids 07/16/2025 11:30 AM EDT BLEPHAROPLASTY UPPER BILATERAL Brow ptosis, bilateral Dermatochalasis of both upper eyelids 07/16/2025 11:30 AM EDT documented as of this encounter Visit Diagnoses Not on filedocumented in this encounter Care Teams Machine Molder Squeeze Relationship Specialty Start Date End Date Aniceto Pearl MD [address] [facility] [place] [address] PCP - General 03/07/01 Kenyatta Dumont [address] [facility] [place] [address] Referring Cardiology 05/29/18 Juan F Mckinney MD [address] [facility] [place] [address] Primary Staff Physician Cardiology 05/10/20 Aniceto Pearl MD [address] [facility] [place] [address] Referring Family Medicine 01/08/23 Aniceto Pearl MD [address] [facility] [place] [address] Referring Family Medicine 06/19/23 documented as of this encounter
--- OUTSIDE RECORDS SUMMARY | 2025-06-04 15:40 | XMS_ITS | Encounter Summary ---
Author Organization [facility] Address [address] [place] [address] Care Team Providers Care Fish Fryer Name Role Phone Aniceto Pearl MD Primary Care Provider [phone] Kenyatta Dumont Unavailable Juan F Mckinney MD Unavailable Aniceto Pearl MD Unavailable [phone] Aniceto Pearl MD Unavailable [phone] Source Comments In the event this information is protected by the Federal Confidentiality of Alcohol and Drug AbusePatient Records regulations: The Federal rules restrict any use of the information to criminally investigate or prosecute any alcohol or drug abuse patient.[facility] Encounter Details Date Type Department Care Team (Late st Contact Info) Description 05/29/2018 Patient Msg Medical Records [address] [place] [address] Provider, Ccf RE: Patient Registration Completed Social History Tobacco Use Types Packs/Day Years [...] 9:40 AM EDT PAT Pre Anesthesia [address] [place] [address] 1, Pacc [place] [address] [place] [id number] pre op 07/16/2025 11:30 AM EDT Hospital Encounter Admitting [address] [place] [address] Tisha Lowery MD [address] [place] [address] Brow ptosis, 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], Dermatochalasis of both upper eyelids [H02.831, H02.834] 07/16/2025 11:30 AM EDT - 07/16/2025 2:00 PM EDT Surgery Admitting [address] [place] [address] Tisha Lowery MD [address] [place] [address] BROWLIFT 07/29/2025 11:00 AM EDT Office Visit Plastic Surgery [address] [address] Savanah Palomares, ISIDRO.BUCKLE AND BUTTON MAKER [address] [place] [address] post op 10/13/2025 10:45 AM EST Procedure Cardiology [address] [place] [address] Chest pain, unspecified type [R07.9] 10/13/2025 11:15 AM EST [facility] [address] [place] [id number] Santiago Gonzalez MD [address] [place] [id number] New Consult Scheduled Procedures Name Priority Associated Diagnoses Date/Ti me BROWLIFT Brow ptosis, bilateral Dermatochalasis of both upper eyelids 07/16/2025 11:30 AM EDT BLEPHAROPLASTY UPPER BILATERAL Brow ptosis, bilateral Dermatochalasis of both upper eyelids 07/16/2025 11:30 AM EDT documented as of this encounter Visit Diagnoses Not on filedocumented in this encounter Care Teams Fish Fryer Relationship Specialty Start Date End Date Aniceto Pearl MD [address] [place] [address] PCP - General 03/07/01 Kenyatta Dumont [address] [place] [address] Referring Cardiology 05/29/18 Juan F Mckinney MD [address] [place] [address] Primary Staff Physician Cardiology 05/10/20 Aniceto Pearl MD [address] [place] [address] Referring Family Medicine 01/08/23 Aniceto Pearl MD [address] [place] [address] Referring Family Medicine 06/19/23 documented as of this encounter
--- OUTSIDE RECORDS SUMMARY | 2025-06-04 15:40 | XMS_ITS | Encounter Summary ---
Author Organization [facility] Address [address] [place] [address] Care Team Providers Care Business Team Leader Name Role Phone Aniceto Pearl MD Primary Care Provider [phone] Kenyatta Dumont Unavailable Juan F Mckinney MD Unavailable Aniceto Pearl MD Unavailable [phone] Aniceto Pearl MD Unavailable [phone] Source Comments In the event this information is protected by the Federal Confidentiality of Alcohol and Drug AbusePatient Records regulations: The Federal rules restrict any use of the information to criminally investigate or prosecute any alcohol or drug abuse patient.[facility] Encounter Details Date Type Department Care Team (Latest Contact Info) Description 02/08/2023 Patient Msg Preventive Cardiology [address] [place], [place] [id number] Provider, Ccf Exercise recommendations Social History Tobacco Use Types Packs/Day Years [...] ot on file 10/30/2020 Data from: https://www.neighborhoodatlas.medicine.[facility]/. 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], Dermatochalasis of both upper eyelids [H02.831, H02.834] 07/16/2025 11:30 AM EDT - 07/16/2025 2:00 PM EDT Surgery Admitting [address] [place] [address] Tisha Lowery MD [address] [place] [address] BROWLIFT 07/29/2025 11:00 AM EDT Office Visit Plastic Surgery [address] [address] Savanah Palomares APRN.CEMENT WORKER [address] [place] [address] post op 10/13/2025 10:45 AM EST Procedure Cardiology [address] [place] [address] Chest pain, unspecified type [R07.9] 10/13/2025 11:15 AM EST [facility] [address] [place] [address] Santiago Gonzalez MD [address] [place] [address] New Consult Scheduled Procedures Name Priority Associated Diagnoses Date/Ti me BROWLIFT Brow ptosis, bilateral Dermatochalasis of both upper eyelids 07/16/2025 11:30 AM EDT BLEPHAROPLASTY UPPER BILATERAL Brow ptosis, bilateral Dermatochalasis of both upper eyelids 07/16/2025 11:30 AM EDT documented as of this encounter Visit Diagnoses Not on filedocumented in this encounter Care Teams Business Team Leader Relationship Specialty Start Date End Date Aniceto Pearl MD [address] [place] [address] PCP - General 03/07/01 Kenyatta Dumont [address] [place] [address] Referring Cardiology 05/29/18 Juan F Mckinney MD [address] [place] [address] Primary Staff Physician Cardiology 05/10/20 Aniceto Pearl MD [address] [place] [address] Referring Family Medicine 01/08/23 Aniceto Pearl MD [address] [place] [address] Referring Family Medicine 06/19/23 documented as of this encounter
--- OUTSIDE RECORDS SUMMARY | 2025-06-04 15:40 | XMS_ITS | Encounter Summary ---
Author Organization [facility] Address [address] [place] [address] Care Team Providers Care Continuity Coordinator Name Role Phone Aniceto Pearl MD Primary Care Provider [phone] Kenyatta Dumont Unavailable Juan F Mckinney MD Unavailable Aniceto Pearl MD Unavailable [phone] Aniceto Pearl MD Unavailable [phone] Source Comments In the event this information is protected by the Federal Confidentiality of Alcohol and Drug AbusePatient Records regulations: The Federal rules restrict any use of the information to criminally investigate or prosecute any alcohol or drug abuse patient.[facility] Encounter Details Date Type Department Care Team (Late st Contact Info) Description 02/03/2024 Patient Msg Preventive Cardiology [address] [place] [address] Provider, Ccf Appointment reminder and labs Social History Tobacco Use Types Packs/Day Years Used Date Smoking Tobacco: Former Cigarettes 1.5 25 0 08/11/1965 - 08/11/1990 Smokeless Tobacco: Never Comments:Quit over 30 yrs ag o Alcohol Use Standard Drinks/Week Comments Yes 4 (1 standard drink = 0.6 oz pur e alcohol) social PHQ-2 Answer Date Recorded PHQ-2 score 1 02/07/2023 Area Deprivation Index Answer Date Jimmie rded National Score (1-100), lower number is lower ri sk 39 07/08/2023 State Score (1-10), lower number is lower risk 2 07/08/2023 Data from: https://www.neighborhoodatlas.medicine.[facility]/. 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], Dermatochalasis of both upper eyelids [H02.831, H02.834] 07/16/2025 11:30 AM EDT - 07/16/2025 2:00 PM EDT Surgery Admitting [address] [place] [address] Tisha Lowery MD [address] [place] [address] BROWLIFT 07/29/2025 11:00 AM EDT Office Visit Plastic Surgery [address] [address] Savanah Palomares APRN.STORES LABORER [address] [place] [address] post op 10/13/2025 10:45 AM EST Procedure Cardiology [address] [place] [address] Chest pain, unspecified type [R07.9] 10/13/2025 11:15 AM EST [facility] Visit [facility] [address] [place] [address] Santiago Gonzalez MD [address] [place] [address] New Consult Scheduled Procedures Name Priority Associated Diagnoses Date/Ti me BROWLIFT Brow ptosis, bilateral Dermatochalasis of both upper eyelids 07/16/2025 11:30 AM EDT BLEPHAROPLASTY UPPER BILATERAL Brow ptosis, bilateral Dermatochalasis of both upper eyelids 07/16/2025 11:30 AM EDT documented as of this encounter Visit Diagnoses Not on filedocumented in this encounter Care Teams Continuity Coordinator Relationship Specialty Start Date End Date Aniceto Pearl MD [address] [place] [address] PCP - General 03/07/01 Kenyatta Dumont [address] [place] [address] Referring Cardiology 05/29/18 Juan F Mckinney MD [address] [place] [address] Primary Staff Physician Cardiology 05/10/20 Aniceto Pearl MD [address] [facility] [place] [address] Referring Family Medicine 01/08/23 Aniceto Pearl MD [address] [place] [address] Referring Family Medicine 06/19/23 documented as of this encounter
--- OUTSIDE RECORDS SUMMARY | 2025-06-04 15:40 | XMS_ITS | Encounter Summary ---
Author Organization [facility] Address [address] [place] [address] Care Team Providers Care Asbestos Worker Helper Name Role Phone Aniceto Pearl MD Primary Care Provider [phone] Kenyatta Dumont Unavailable Juan F Mckinney MD Unavailable Aniceto Pearl MD Unavailable [phone] Aniceto Pearl MD Unavailable [phone] Source Comments In the event this information is protected by the Federal Confidentiality of Alcohol and Drug AbusePatient Records regulations: The Federal rules restrict any use of the information to criminally investigate or prosecute any alcohol or drug abuse patient.[facility] Encounter Details Date Type Department Care Team (Late st Contact Info) Description 02/07/2023 Patient Msg Preventive Cardiology [address] [place] [address] Provider, Ccf Information for your exercise prescription visit on 02/08/23 Social History Tobacco Use Types Packs/Day Years [...] N ot on file 10/30/2020 Data from: https://www.neighborhoodatlas.medicine.[facility]/. 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], Dermatochalasis of both upper eyelids [H02.831, H02.834] 07/16/2025 11:30 AM EDT - 07/16/2025 2:00 PM EDT Surgery Admitting [address] [place] [id number] Tisha Lowery MD [address] [place] [phone] BROWLIFT 07/29/2025 11:00 AM EDT Office Visit Plastic Surgery [address] [address] Savanah Palomares APRN.MOLD YARN SUPERVISOR [address] [place] [address] post op 10/13/2025 10:45 AM EST Procedure Cardiology [address] [place] [address] Chest pain, unspecified type [R07.9] 10/13/2025 11:15 AM EST [facility] [address] [place] [address] Santiago Gonzalez MD [address] [place] [address] New Consult Scheduled Procedures Name Priority Associated Diagnoses Date/Ti me BROWLIFT Brow ptosis, bilateral Dermatochalasis of both upper eyelids 07/16/2025 11:30 AM EDT BLEPHAROPLASTY UPPER BILATERAL Brow ptosis, bilateral Dermatochalasis of both upper eyelids 07/16/2025 11:30 AM EDT documented as of this encounter Visit Diagnoses Not on filedocumented in this encounter Care Teams Asbestos Worker Helper Relationship Specialty Start Date End Date Aniceto Pearl MD [address] [facility] [address] PCP - General 03/07/01 Kenyatta Dumont [address] [facility] [address] Referring Cardiology 05/29/18 Juan F Mckinney MD [address] [facility] [address] Primary Staff Physician Cardiology 05/10/20 Aniceto Pearl MD [address] [facility] [address] Referring Family Medicine 01/08/23 Aniceto Pearl MD [address] [place] [address] Referring Family Medicine 06/19/23 documented as of this encounter
--- OUTSIDE RECORDS SUMMARY | 2025-06-04 15:40 | XMS_ITS | Encounter Summary ---
Author Organization [facility] Address [address] [place] [address] Care Team Providers Care Twister Hand Name Role Phone Aniceto Pearl MD Primary Care Provider [phone] Kenyatta Dumont Unavailable Juan F Mckinney MD Unavailable Aniceto Pearl MD Unavailable [phone] Aniceto Pearl MD Unavailable [phone] Source Comments In the event this information is protected by the Federal Confidentiality of Alcohol and Drug AbusePatient Records regulations: The Federal rules restrict any use of the information to criminally investigate or prosecute any alcohol or drug abuse patient.[facility] Encounter Details Date Type Department Care Team (Late st Contact Info) Description 11/26/2018 Patient Msg Preventive Cardiology [address] [place], [place] [id number] Kenyatta Dumont [address] [place] [address] Labs Social History Tobacco Use Types Packs/Day [...] 9:40 AM EDT PAT Pre Anesthesia [address] [place] [address] 1, Pacc [place] [address] [place] [address] pre op 07/16/2025 11:30 AM EDT Hospital Encounter Admitting [address] [place] [address] Tisha Lowery MD [address] [place] [address] Brow ptosis, 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], Dermatochalasis of both upper eyelids [H02.831, H02.834] 07/16/2025 11:30 AM EDT - 07/16/2025 2:00 PM EDT Surgery Admitting [address] [place] [address] Tisha Lowery MD [address] [place] [address] BROWLIFT 07/29/2025 11:00 AM EDT Office Visit Plastic Surgery [address] [address] Savanah Palomares APRN.[place] HISTORY PROFESSOR [address] [place] [address] post op 10/13/2025 10:45 AM EST Procedure Cardiology [address] [place] [address] Chest pain, unspecified type [R07.9] 10/13/2025 11:15 AM EST [facility] [address] [place] [address] Santiago Gonzalez MD [address] [place] [address] New Consult Scheduled Procedures Name Priority Associated Diagnoses Date/Ti me BROWLIFT Brow ptosis, bilateral Dermatochalasis of both upper eyelids 07/16/2025 11:30 AM EDT BLEPHAROPLASTY UPPER BILATERAL Brow ptosis, bilateral Dermatochalasis of both upper eyelids 07/16/2025 11:30 AM EDT documented as of this encounter Visit Diagnoses Not on filedocumented in this encounter Care Teams Twister Hand Relationship Specialty Start Date End Date Aniceto Pearl MD [address] [place] [place] [address] PCP - General 03/07/01 Kenyatta Dumont [address] [place] [address] Referring Cardiology 05/29/18 Juan F Mckinney MD [address] [place] [address] Primary Staff Physician Cardiology 05/10/20 Aniceto Pearl MD [address] [place] [address] Referring Family Medicine 01/08/23 Aniceto Pearl MD [facility] [place] [facility] [address] Referring Family Medicine 06/19/23 documented as of this encounter
--- OUTSIDE RECORDS SUMMARY | 2025-06-04 15:40 | XMS_ITS | Encounter Summary ---
Author Organization [facility] Address [address] [place] [address] Care Team Providers Care Customer Experience Strategist Name Role Phone Aniceto Pearl MD Primary Care Provider [phone] Kenyatta Dumont Unavailable Juan F Mckinney MD Unavailable Aniceto Pearl MD Unavailable [phone] Aniceto Pearl MD Unavailable [phone] Source Comments In the event this information is protected by the Federal Confidentiality of Alcohol and Drug AbusePatient Records regulations: The Federal rules restrict any use of the information to criminally investigate or prosecute any alcohol or drug abuse patient.[facility] Encounter Details Date Type Department Care Team (Late st Contact Info) Description 01/16/2023 Patient Msg Preventive Cardiology [address] [place] [address] Ariella Norwood APRN.BIODIESEL PLANT OPERATIONS ENGINEER [address] [place] [address] Appointment follow up Social History Tobacco Use Types Packs/Day Years [...] N ot on file 10/30/2020 Data from: https://www.neighborhoodatlas.medicine.[facility]/. 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], Dermatochalasis of both upper eyelids [H02.831, H02.834] 07/16/2025 11:30 AM EDT - 07/16/2025 2:00 PM EDT Surgery Admitting [address] [place] [address] Tisha Lowery MD [address] [place] [address] BROWLIFT 07/29/2025 11:00 AM EDT Office Visit Plastic Surgery [address] [address] Savanah Palomares APRN.BIODIESEL PLANT OPERATIONS ENGINEER [address] [place] [address] post op 10/13/2025 10:45 AM EST Procedure Cardiology [address] [place] [address] Chest pain, unspecified type [R07.9] 10/13/2025 11:15 AM EST [facility] [address] [place] [address] Santiago Gonzalez MD [address] [place] [address] New Consult Scheduled Procedures Name Priority Associated Diagnoses Date/Ti me BROWLIFT Brow ptosis, bilateral Dermatochalasis of both upper eyelids 07/16/2025 11:30 AM EDT BLEPHAROPLASTY UPPER BILATERAL Brow ptosis, bilateral Dermatochalasis of both upper eyelids 07/16/2025 11:30 AM EDT documented as of this encounter Visit Diagnoses Not on filedocumented in this encounter Care Teams Customer Experience Strategist Relationship Specialty Start Date End Date Aniceto Pearl MD [address] [place] [address] PCP - General 03/07/01 Kenyatta Dumont [address] [place] [address] Referring Cardiology 05/29/18 Juan F Mckinney MD [address] [place] [address] Primary Staff Physician Cardiology 05/10/20 Aniceto Pearl MD [address] [place] [address] Referring Family Medicine 01/08/23 Aniceto Pearl MD [address] [place] [address] Referring Family Medicine 06/19/23 documented as of this encounter
--- OUTSIDE RECORDS SUMMARY | 2025-06-04 15:40 | XMS_ITS | Encounter Summary ---
Author Organization [facility] Address [facility] [place] [address] Care Team Providers Care Presentation Team Member Name Role Phone Aniceto Pearl MD Primary Care Provider [phone] Kenyatta Dumont Unavailable Juan F Mckinney MD Unavailable Aniceto Pearl MD Unavailable [phone] Aniceto Pearl MD Unavailable [phone] Source Comments In the event this information is protected by the Federal Confidentiality of Alcohol and Drug AbusePatient Records regulations: The Federal rules restrict any use of the information to criminally investigate or prosecute any alcohol or drug abuse patient.[facility] Encounter Details Date Type Department Care Team (Late st Contact Info) Description 08/12/2023 Patient Msg Cardiology [address] [place] [address] Provider, Ccf 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/. 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], Dermatochalasis of both upper eyelids [H02.831, H02.834] 07/16/2025 11:30 AM EDT - 07/16/2025 2:00 PM EDT Surgery Admitting [address] [place] [address] Tisha Lowery MD [address] [place] [phone] BROWLIFT 07/29/2025 11:00 AM EDT Office Visit Plastic Surgery [address] [address] Savanah Palomares APRN.COMMUNICATIONS LEAD [address] [place] [address] post op 10/13/2025 10:45 AM EST Procedure Cardiology [address] [place] [address] Chest pain, unspecified type [R07.9] 10/13/2025 11:15 AM EST [facility] [address] [place] [address] Santiago Gonzalez MD [address] [place] [address] New Consult Scheduled Procedures Name Priority Associated Diagnoses Date/Ti me BROWLIFT Brow ptosis, bilateral Dermatochalasis of both upper eyelids 07/16/2025 11:30 AM EDT BLEPHAROPLASTY UPPER BILATERAL Brow ptosis, bilateral Dermatochalasis of both upper eyelids 07/16/2025 11:30 AM EDT documented as of this encounter Visit Diagnoses Not on filedocumented in this encounter Care Teams Presentation Team Member Relationship Specialty Start Date End Date Aniceto Pearl MD [address] [place] [address] PCP - General 03/07/01 Kenyatta Dumont [address] [place] [address] Referring Cardiology 05/29/18 Juan F Mckinney MD [address] [place] [address] Primary Staff Physician Cardiology 05/10/20 Aniceto Pearl MD [address] [place] [address] Referring Family Medicine 01/08/23 nAiceto Pearl MD [address] [place] [address] Referring Family Medicine 06/19/23 documented as of this encounter
== END 2025-06-04 15:34 | disposition home or self-care (01) ==
LOC: LAB 15:37
PROVIDERS: PCP Family Medicine; Visit Provider Family Medicine
DX: Z12.5 Encounter for screening for malignant neoplasm of prostate (principal)
CPT/HCPCS: 36415; G0103

== ENCOUNTER 2025-07-01 09:36 | Outpatient (OUT) | payer MEDICARE, OTHER, SELFPAY ==
--- NOTE | 2025-07-01 09:45 | MR_ITS ---
[address] [address] Patient Name: DEBORAH BARROW MRN: [id number] date: 1945 Sex: M Assigned Patient Location: MRI Current Patient Location: MRI Accession/Order Number: [id number] Exam Date: 07/01/2025 16:44 Report Date: 07/01/2025 16:57 At the request of: ONEL ISAACS MD Procedure: MR head/brain wo con EXAMINATION: MRI OF THE BRAIN WITHOUT CONTRAST CLINICAL HISTORY: Frontal Headache COMPARISON: None TECHNIQUE: Multiecho, multiplanar imaging of the brain was performed without contrast. Findings: No restricted diffusion. Mild generalized involutional changes of brain parenchyma identified with prominence of ventricles and sulci. No shift of midline structures. Basal cisterns are patent. Moderate periventricular and subcortical T2 prolongation suggestive of chronic small vessel ischemic disease. Remote right frontal lobe appears strokes subcortical region and along the articular white matter. No shift midline structure. Basal cisterns are patent. Major intracranial intravascular flow was preserved. No abnormal GRE signal. Mild paranasal sinus mucoperiosteal thickening. Cataract surgery. MR/MR head/brain wo con IMPRESSION: Moderate chronic small vessel ischemic disease. Negative acute intracranial process by MRI. Impression dictated by: Porfirio Guido M.D. 07/01/2025 4:57 PM Dictation Location: [place] [address] Electronically authenticated by: [id number] Y Date: 07/01/2025 16:57
== END 2025-07-01 09:37 | disposition home or self-care (01) ==
LOC: MRI 09:36
PROVIDERS: PCP Family Medicine; Visit Provider Family Medicine
DX: R51.9 Headache, unspecified (principal)
CPT/HCPCS: 70551

== ENCOUNTER 2025-10-01 08:24 | Outpatient (OUT) | payer MEDICARE, OTHER, SELFPAY ==
--- NOTE | 2025-10-01 07:45 | NM_ITS ---
Patient Name: DEBORAH BARROW MR#: [id number] : 1945 Exam Date: 10/01/2025 Ordering Doctor: DR ONEL ISAACS . RADIOLOGY REPORT PROCEDURE: NM LIZZIE PERF SPECT REST STR COMPARISON: None. INDICATIONS: CHEST PAIN TECHNIQUE: Exam Description: Stress/Rest one day protocol gated SPECT Rest Imagin.6 mCi Tc-99m Cardiolite IV on 10/01/2025 Stress Imaging 30.1 mCi Tc-99m Cardiolite IV on 10/01/2025 Exercise Protocol: Anastacio Heart Rate (bpm): Rest: 64 Max: 139 PMHR: 98 Blood Pressure: Rest: 150/96 Max: 178/100 Exercise Time: Minutes: 6 Seconds: 13 Stage Reached: Stage: 3 Mets 7.6 Symptoms: Rest and peak stress ECG findings were pending and the EKG portion of the study was pending per attending physician [facility] . For more details please see separate cardiac stress test report. FINDINGS: QUALITY OF STUDY: Good PERFUSION DEFECT: LOCATION: Inferior SIZE: Small to medium SEVERITY: Mild TYPE: Fixed with adequate contractility and thickening consistent with diaphragmatic attenuation WALL MOTION: Normal LV SIZE: 84 mL. TID / TCD: 0.9 LVEF: Calculated EF 64%. SUMMARY: Normal myocardial perfusion imaging study CONCLUSION: Normal myocardial perfusion stress test without evidence of ischemia or infarction. There is evidence of diaphragmatic attenuation. Normal left ventricle systolic function, ejection fraction 64% No transient ischemic dilatation, TID 0.9 EKG portion of stress test is reported separately Dictated by: Radha Denny MD on 10/01/2025 at 12:17 Approved by: Radha Denny MD on 10/01/2025 at 12:21
--- OUTSIDE RECORDS SUMMARY | 2025-10-01 08:28 | XMS_ITS | CCD ---
Author Organization [facility] Care Team Providers Care Icing And Glaze Maker Name Role Phone Onel Isaacs Primary Care Physician Carmella Liao Unavailable Unavailable Laura Gates Unavailable Unavailable Katie Villatoro Unavailable Unavailable Onel Isaacs MD Primary Care Provider Ahmed, Rayraytham Unavailable Juan F Mckinney MD Unavailable Onel Isaacs MD Primary Care Provider Ahmed, Haitham Unavailable Juan F Mckinney MD Unavailable Onel Isaacs MD Primary Care Provider Ahmed, Rayraytham Unavailable Onel Isaacs MD Primary Care Provider Ahmed, Haitham Unavailable Juan F Mckinney MD Unavailable Onel Isaacs MD Unavailable Onel Isaacs MD Primary Care Provider Ahmed, Haitham Unavailable Juan F Mckinney MD Unavailable Onel Isaacs MD Unavailable Onel Isaacs MD Unavailable Juan F Mckinney MD Unavailable Juan F Mckinney MD Unavailable Onel Isaacs MD Unavailable Onel Isaacs MD Primary Care Provider Sarah SNIDER Attending Unavailable Hobenny, Onel Referring Unavailable Onel Isaacs MD Primary Care Provider [phone] NUNU DAILEY Attending Unavailable Onel Isaacs MD Primary Care Provider [phone] Joo Morrell DO Attending Provider [phone] SELF Referring Unavailable OSMANI, ABEBA Attending Unavailable HOY, ONEL M Primary Care Unavailable HOY, ONEL M Primary Care Unavailable OSMANI, ABEBA Referring Unavailable BASSIRI GHARB, BAHAR Attending Unavailable HOY, ONEL M Primary Care Unavailable HOY, ONEL M Primary Care Unavailable OSMANI, ABEBA Attending Unavailable OSMANI, ABEBA Referring Unavailable HOY, ONEL M Primary Care Unavailable OSMANI, ABEBA Referring Unavailable BASSIRI GHARB, BAHAR Attending Unavailable HOY, ONEL M Primary Care Unavailable SARAH HUITRON Attending Unavailable ALEXIS LOTT Referring Unavailable HOY, ONEL M Primary Care Unavailable OSMANI, ABEBA Referring Unavailable HOY, ONEL M Primary Care Unavailable BASSIRI GHARB, BAHAR Attending Unavailable HOY, ONEL M Primary Care Unavailable Onel Isaacs MD Primary Care Provider [phone] Joo Morrell DO Attending Provider Joo Morrell Attending Unavailable Joo Morrell Admitting Unavailable Hoy, Onel M Primary Care Unavailable Joo Morrell Admitting Unavailable Hoy, Onel M Primary Care Unavailable Joo Morrell Attending Unavailable Joo Morrell Admitting Unavailable Hoy, Onel M Primary Care Unavailable Joo Morrell Attending Unavailable Allergies Allergy ClassificationReported Allergen(s)Allergy TypeDate of OnsetReaction(s) Facility (17 sources)Acetaminophen / HYDROcodone; Translations: [acetaminophen-hydrocodone]Drug Ikqrvau45-76-3287Rbqkmjs (qualifier value), [facility] (7 sources)Codeine; Translations: [codeine]Drug Fekumox09-83-8032DelxwwhLrjritMer[facility] (20 sources)Lisinopril; Translations: [lisinopril]Drug Vozrcim99-77-1771LblfsMer[facility] (17 sources)Amoxicillin; Translations: [amoxicillin]Drug Lnmgpgs52-29-5209 Diarrhea (finding), [facility] ([facility])Acetaminophen / oxyCODONE; Translations: [Percocet 5/325]Drug Allergy [facility] (13 sources)oxyCODONE; Translations: [OXYCODONE]Drug Jgsfiuq58-67-6788Xupflyz [facility] (1 source)Acetaminophen / HYDROcodone; Translations: [HYDROCODONE-ACETAMINOPHEN] Drug Ouwdhee56-37-5321LeiumequtProMedica [facility] (1 source)LisinoprilDrug Zotmlsw17-43-4990AktzirzniPremier Health [facility] Medications Current Medications MedicationDrug Class(es)DatesSig (Normalized)Sig (Original)acetaminophen 325 mg oral tablet (20 sources)Start: 91-12-2317wfwpgkgqbzqvi (TYLENOL) 325 mg tablet Take 650 mg by mouth as needed for pain. 09/09/2018 ActiveStart: 57-07-6324kpcw 650 mg by mouth four times daily as needed for painTylenol 650 mg, Oral, QID, PRN as needed for pain, Refills(s) 0 Start Date: 09/09/18 Status: OrderedComment on above:Take 650 mg by mouth.Take 650 mg by mouth as needed for pain.Airborne Everyday (4 sources)Start: 07-12-8588vkzm 1 tablet by mouth once dailyAirborne Everyday 1 tab, Oral, Daily, Refill(s) 0, Prophylaxis Start Date: 09/09/18 Status: Ordered amoxicillin 500 mg oral tablet (4 sources)Penicillin-class AntibacterialStart: 40-55-4791rihx 500 mg by mouth onceamoxicillin 500 mg, Oral, Once, Refills(s) 0, Infection or prophylaxis for antibiotics Start Date: 02/19/22 Status: Orderedascorbic acid / biotin / ferrous bisglycinate / folic acid / formic acid / iron-dextran complex / niacin / pantothenate / pyridoxine / riboflavin / thiamine / vitamin B12 (20 sources)Nicotinic Acid, Vitamin B12, Vitamin CStart: 99-78-5762lqqi 1 tablet by mouth every weekiron geo,ps-FA-B-C#12-succ 65 mg-65 mg -1,000 mcg (24) tab Take 65 mg by mouth once weekly 08/13/2023 ActiveStart: 60-92-2430tbmy 1 tablet by mouth every weekiron prasanthgly,ps-FA-B-C#12-succ 65 mg-65 mg -1,000 mcg (24) tab Take 65 mg by mouth once weekly 0 08/13/2023 ActiveStart: 08-11-2020 End: 87-47-8174iueo 1 tablet by mouth once dailyiron bisgly,ps-FA-B-C#12-succ 65 mg-65 mg -1,000 mcg (24) tab Take 65 mg by mouth once daily. 0 08/11/2020 08/13/2023 DiscontinuedStart: 78-79-6761pwxz 1 tablet by mouth once dailyiron bisgly,ps-FA-B-C#12-succ 65 mg-65 mg -1,000 mcg (24) tab Take 65 mg by mouth once daily. 0 08/11/2020 ActiveComment on above:Take 65 mg by mouth once daily. Take 65 mg by mouth once weeklyAspir 81 (5 sources)Start: 39-16-4041xgxe 81 mg by mouth once dailyAspir 81 81 mg, Oral, Daily, Refills(s) 0, Prophylaxis Start Date: 08/28/18 Status: Orderedazithromycin 500 mg oral tablet (20 sources)Macrolide AntimicrobialStart: 74-62-9835snnzhjgzwmmq (ZITHROMAX) 500 mg tablet Take 1 tablet by mouth once daily. Take one tablet 60 minutes prior to procedure. 1 tablet 03/23/2022 ActiveStart: 02-21-2022 End: 70-48-5329zimpmivfvfyd (ZITHROMAX) 500 mg tablet Take 1 tablet by mouth once daily. Take one tablet 60 minutes prior to procedure. 1 tablet 0 02/21/2022 03/20/2022 DiscontinuedComment on above:Take 1 tablet by mouth once daily. Take one tablet 60 minutes prior to procedure.benoxinate hydrochloride 4 mg/ml / fluorescein sodium 3 mg/ml ophthalmic solution (1 source)Diagnostic DyeStart: 12-22-2024 End: 27-63-1757bervzplebji-benoxinate 0.3-0.4 % 1 Drop (FLURESS)calcium citrate 600 mg and vitamin D3 (Citrical & Minerals + Vit D) 600-200 MG-UNIT tablet (1 source)calcium citrate 600 mg and vitamin D3 (Citrical & Minerals + Vit D) 600-200 MG-UNIT tablet every 12 (twelve) hours. Activecalcium citrate/vitamin D3 (CALCIUM CITRATE + ORAL) (20 sources)calcium citrate/vitamin D3 (CALCIUM CITRATE + ORAL) Take by mouth twice daily. Pt takes 2 capsule by mouth twice per day. Activecalcium citrate/vitamin D3 (CALCIUM CITRATE + ORAL) Take by mouth twice daily. Pt takes 2 capsule by mouth twice per day. 0 Activecalcium citrate/vitamin D3 (CALCIUM CITRATE + ORAL) Take by mouth twice daily. Pt takes 2 chewablesby mouth twice per day. 0 Activecalcium citrate/vitamin D3 (CALCIUM CITRATE + ORAL) Take by mouth twice daily. Chewable taken twiceper day by mouth. 0 ActiveComment on above:Take by mouth twice daily. Chewable taken twice per day by mouth.Take by mouth twice daily. Pt takes 2 chewables by mouth twice per day.Take by mouth twice daily. Pt takes 2 capsule by mouth twice per day.carisoprodol 350 mg oral tablet (1 source)Muscle RelaxantStart: 34-53-8104azal 1 tablet by mouth twice daily carisoprodol 350 mg Tab 350 mg = 1 tab(s), Oral, BID, Refills(s) 0 Start Date: 08/10/24 Status: Orderedcefdinir 300 mg oral capsule (7 sources)Cephalosporin AntibacterialStart: 20-59-0740Itmil: 03-24-2025 End: 07-66-9945axgm 2 capsules by mouth once dailycefdinir (OMNICEF) 300 mg capsule Take 2 capsules by mouth once daily. 20 capsule 03/24/2025 05/10/2025 Discontinuedcholecalciferol 0.05 mg oral capsule (20 sources)Vitamin Dtake 1 capsule by mouth twice dailyCholecalciferol, Vitamin D3, 50 mcg (2,000 unit) cap Take 1,000 Units by mouth twice daily. Active cholecalciferol (Vitamin D-3) 50 MCG (2000 UT) capsule 1 capsule 1 (one) time each day at the same time. ActiveComment on above:Take 1 capsule by mouth once daily.Take 1,000 Units by mouth twice daily.Co-Q10 (5 sources)Start: 36-57-9000rvwf 100 mg by mouth once dailyCo-Q10 100 mg, Oral, Daily, Refills(s) 0, Prophylaxis Start Date: 09/09/18 Status: Ordered cyanocobalamin, vitamin B-12, (VITAMIN B-12 SUBLINGUAL) (20 sources)take 1 dose under the tongue once dailycyanocobalamin, vitamin B-12, (VITAMIN B-12 SUBLINGUAL) Dissolve 1 Dose under the tongue once daily. Active take 1 dose under the tongue once dailycyanocobalamin, vitamin B-12, (VITAMIN B- 12 SUBLINGUAL) Dissolve 1 Dose under the tongue once daily. 0 ActiveComment on above:Dissolve 1 Dose under the tongue once daily.doxycycline hyclate 50 mg oral capsule (1 source)Tetracycline-class DrugStart: 12-28-2024 End: 97-69-5357poue 1 capsule by mouth once dailydoxycycline (VIBRAMYCIN) 50 mg capsule Take 1 capsule by mouth once daily for 28 days. 28 capsule 12/28/2024 01/25/2025 Activefurosemide 20 mg oral tablet (14 sources)Loop DiureticStart: 68-32-1402kckb 1 tablet by mouth once dailyLasix 20 mg Tab 20 mg = 1 tab(s), Oral, Daily, Refills(s) 0 Start Date: 08/10/24 Status: Orderedirbesartan 300 mg oral tablet (20 sources)Angiotensin 2 Receptor BlockerStart: 10-15-2022 End: 82-23-5229mhhs 1 tablet by mouth once daily at bedtimeirbesartan (AVAPRO) 300 mg tablet Indications: Essential hypertension Take 1 tablet by mouth daily a t bedtime. 90 tablet 3 04/12/2025 ActiveStart: 10-18-2021 End: 90-38-1360bixq 1 tablet by mouth once daily at bedtimeirbesartan (AVAPRO) 300 mg tablet Indications: Essential hypertension Take 1 tablet by mouth daily a t bedtime. 90 tablet 3 10/18/2021 10/11/2022 DiscontinuedComment on above:Take 1 tablet by mouth daily at bedtime.iron gluconate (1 source)Start: 56-43-5027vevu gluconate Oral, Daily, Refills(s) 0 Start Date: 03/01/23 Status: Orderedlosartan 12.5 mg oral tablet (5 sources)Angiotensin 2 Receptor BlockerStart: 33-80-8163jmgr 12.5 mg by mouth once dailylosartan 12.5 mg, Oral, Daily, Refills(s) 0, High blood pressure Start Date: 03/17/18 Status: Orderedlosartan (Cozaar) 25 MG tablet every 8 (eight) hours. ActiveMultiple Vitamins-Minerals (Centrum Silver 50+Men) tablet (1 source)Multiple Vitamins-Minerals (Centrum Silver 50+Men) tablet 1 (one) time each day at the same time. ActiveMULTIVITAMIN ORAL (11 sources)MULTIVITAMIN ORAL Take by mouth. ActiveMultivitamin preparation (1 source)Start: 24-68-2969wozw 1 tablet by mouth once dailymultivitamin 1 tab(s), Oral, Daily, Refill(s) 0 Start Date: 08/10/24 Status: Orderedmultivitamin tablet (20 sources)Start: 76-54-3187qbsi 1 tablet by mouth once dailymultivitamin tablet Take 1 tablet by mouth once daily. 04/12/2021 ActiveStart: 21-13-6853ugph 1 tablet by mouth once dailymultivitamin tablet Take 1 tablet by mouth once daily. 0 04/12/2021 ActiveComment on above:Take 1 tablet by mouth once daily. re-hs-M-theanine-herb no.310 (AIRBORNE EVERYDAY STRESS AWAY) 1,000 mg-200 mg-360 mg pwpk (20 sources)Start: 95-17-6747mddq 360 mg by mouth once daily bk-mw-B-theanine-herb no.310 (AIRBORNE EVERYDAY STRESS AWAY) 1,000 mg-200 mg-360 mg pwpk Take by mouth. 09/09/2018 ActiveStart: 29-92-4969re-ja-P-edejutfh-herb no.310 (AIRBORNE EVERYDAY STRESS AWAY) 1,000 mg-200 mg-360 mg pwpk Take by myesha th. 0 09/09/2018 ActiveComment on above:Take by mouth.olopatadine 7 mg/ml ophthalmic solution (20 sources)Histamine-1 Receptor InhibitorStart: 73-37-8847dvmd 1 drop(s) into the eye(s) twice dailyolopatadine 0.7% ophthalmic solution 1 drop(s), Eye-Both, BID, Refill(s) 0, Itching Start Date: 02/07/22 Status: OrderedStart: 04-12-2021 olopatadine (PATADAY TWICE DAILY RELIEF) 0.1 % ophthalmic solution Use 1 Drop in both eyes twice daily. 04/12/2021 ActiveComment on above:Use 1 Drop in both eyes twice daily.omeprazole 40 mg delayed release oral capsule (1 source)Proton Pump Inhibitoromeprazole (PriLOSEC) [address] capsule 1 capsule 1 (one) time each day at the same time. Activeondansetron 4 mg disintegrating oral tablet (1 source)Serotonin-3 Receptor Antagonistondansetron ODT (Zofran-ODT) 4 MG disintegrating tablet every 12 (twelve) hours. ActiveOTC PRODUCT (20 sources)OTC PRODUCT 0.9% NaCl Sinus Rinse ActiveOTC PRODUCT once daily. OTC Force Factor take 3 tablet once per day ActiveOTC PRODUCT once daily. OTC Force Factor take 3 tablet once per day 0 ActiveOTC PRODUCT 0.9% NaCl Sinus Rinse 0 ActiveComment on above:0.9% NaCl Sinus Rinseonce daily. OTC Force Factor take 3 tablet once per dayperflutren lipid microspheres 1.3 mL in NaCl (PF) 0.9% 10 mL injection (DEFINITY) (20 sources)Start: 03-13-2023 End: 49-69-3952zqobgzqjwi lipid microspheres 1.3 mL in NaCl (PF) 0.9% 10 mL injection (DEFINITY)Start: 08-15-2022 End: 62-33-9456kqyclacxxv lipid microspheres 1.3 mL in NaCl (PF) 0.9% 10 mL injection (DEFINITY)Start: 04-12-2021 End: 09-71-3648gpgkyhqbrb lipid microspheres 1.3 mL in NaCl (PF) 0.9% 10 mL injection (DEFINITY)phenylephrine hydrochloride 25 mg/ml ophthalmic solution (1 source)alpha-1 Adrenergic AgonistStart: 12-22-2024 End: 03-54-6649BVKOYYxdlizqo 2.5 % 1 Drop (AK-DILATE, RACHEL-SYNEPHRINE) proparacaine hydrochloride 5 mg/ml ophthalmic solution (1 source)Local AnestheticStart: 12-22-2024 End: 38-39-7928hoqfewxlbbch 0.5 % 1 Drop (ALCAINE)psyllium 6000 mg powder for oral suspension (1 source)psyllium (Metamucil) 100 % powder 1 (one) time each day at the same time. Activepsyllium husk, bulk, 100 % powd (20 sources)psyllium husk, bulk, 100 % powd 1 teaspoonful twice daily. Active psyllium husk, bulk, 100 % powd 1 teaspoonful twice daily. 0 ActiveComment on above:1 teaspoonful twice daily. saw palmetto (1 source)Start: 17-91-2219vmq palmetto Oral, Daily, Refill(s) 0, Prophylaxis Start Date: 09/09/18 Status: Orderedsaw palmetto (Serenoa repens) 450 MG capsule (1 source)saw palmetto (Serenoa repens) 450 MG capsule 1 (one) time each day at the same time. Activesaw palmetto 80 MG capsule (1 source)take 1 tablet by mouth once dailysaw palmetto 80 MG capsule take 1 Tablet by Oral route every day Oral ActiveSaw palmetto extract (3 sources)Start: 02-48-8807jds palmetto Oral, Daily, Refill(s) 0, Prophylaxis Start Date: 09/09/18 Status: Orderedsimvastatin 20 mg oral tablet (12 sources)HMG-CoA Reductase InhibitorStart: 40-24-2380tuekmostnzr (ZOCOR) 20 mg tablet daily at bedtime. 07/08/2024 Javbpf108 ml sodium chloride 9 mg/ml prefilled syringe (20 sources)Start: 45-89-3319dqfgrw chloride 0.9% Irr Kathryn 500 mL Refill(s) 0 Start Date: 03/01/23 Status: OrderedStart: 08-15-2022 End: 51-37-8957zbfhnl chloride 0.9 % (flush) 10 mL (BD POSIFLUSH)Start: 04-12-2021 End: 53-00-0605kwftrp chloride 0.9 % (flush) 10 mL (BD POSIFLUSH)Start: 17-43-2688Cddxka Mist 0.65% nasal spray 1 spray(s), Nasal, Daily, Refill(s) 0 Start Date: 08/28/18 Status: OrderedStart: 89-89-2230bstqrx chloride (SALINE MIST NASAL) Use in the nose. 08/28/2018 ActiveStart: 18-00-8535fdnhxs chloride (SALINE MIST NASAL) Use in the nose. 0 08/28/2018 ActiveComment on above:Use in the nose.tiZANidine 4 mg oral tablet (5 sources)Central alpha-2 Adrenergic AgonistStart: 12-15-5264mkye 2 tablets by mouth at bedtime as needed for paintiZANidine 4 mg Tab 8 mg = 2 tab(s), Oral, Bedtime, PRN Spasm, Refills(s) 0, Muscle pain Start Date: 05/19/19 Status: OrderedStart: 58-02-5700cmdg 1 tablet by mouth every eight hours as needed for paintiZANidine 4 mg Tab 4 mg = 1 tab(s), Oral, q8hr, PRN Spasm, Refills(s) 0, Muscle pain Start Date: 05/19/19 Status: OrderedTolnaftate (20 sources)tolnaftate (FORMULA 3 TOPICAL) Apply 1 application to affected area once daily. Activetolnaftate (FORMULA 3 TOPICAL) Apply 1 application to affected area once daily. 0 ActiveComment on above:Apply 1 application to affected area once daily.tropicamide 10 mg/ml ophthalmic solution (1 source)AnticholinergicStart: 12-22-2024 End: 19-42-2360vxslkbvibel 1 % 1 Drop (MYDRIACYL)ubidecarenone 30 mg oral capsule (1 source)coenzyme Q-10 30 MG capsule Co Q-10 Activeubidecarenone 100 mg / vitamin e 150 unt oral capsule (1 source)Coenzyme Y60-Zfnllyt E (Qunol Ultra CoQ10) 100-150 MG-UNIT capsule Orally Activeubidecarenone/vitamin E mixed (COQ10 SG 100 ORAL) (20 sources)take 1 capsule by mouth once dailyubidecarenone/vitamin E mixed (COQ10 SG 100 ORAL) Take 1 capsule by mouth once daily. Activetake 1 capsule by mouth once dailyubidecarenone/vitamin E mixed (COQ10 SG 100 ORAL) Take 1 capsule by mouth once daily. 0 ActiveComment on above:Take 1 capsule by mouth once daily.Vitamin B-12 5000 mcg sublingual tablet (1 source)Start: 15-85-3441gscj 1 tablet under the tongue once dailyVitamin B-12 5000 mcg sublingual tablet 5,000 mcg = 1 tab(s), SubLingual, Daily, Refills(s) 0 StartDate: 08/10/24 Status: Orderedvitamin b12 0.1 mg oral tablet (1 source)Vitamin L58jkqr 1 tablet by mouth in the morningcyanocobalamin (Vitamin B-12) 100 MCG tablet Take 100 mcg by mouth in the morning. Active Vitamin D2 2000 intl units oral capsule (1 source)Start: 17-09-0038hssn 1 capsule by mouth once dailyVitamin D2 2000 intl units oral capsule 50 mcg = 1 cap(s), Oral, Daily, cap(s), Refills(s) 0 Start Date: 08/10/24 Status: OrderedVitamin D3 (4 sources)Start: 49-28-9202dnht 1000 ug by mouth twice dailyVitamin D3 1,000 mcg, Oral, BID, Refills(s) 0, Prophylaxis Start Date: 05/19/19 Status: Ordered Completed/Discontinued Medications MedicationDrug Class(es)DatesSig (Normalized)Sig (Original)aspirin 81 mg chewable tablet (20 sources)Platelet Aggregation Inhibitor, Nonsteroidal Anti-inflammatory Drug Start: 09-11-2018 End: 99-28-4767awjv 1 tablet by mouth once dailyaspirin 81 mg chewable tablet Take 1 tablet by mouth once daily. 90 tablet 3 09/11/2018 08/13/2023 D iscontinued (Duplicate Entry)take 1 tablet by mouth once dailyaspirin, enteric coated (ASPIRIN, ENTERIC COATED) 81 mg EC tablet Take 81 mg by mouth once daily. ActiveComment on above:Take 1 tablet by mouth once daily.Take 81 mg by mouth once daily.Calcium Citrate (5 sources)Start: 33-13-5334dpzk 2 tablets by mouth twice dailycalcium citrate 250 mg, Oral, BID, takes 2 tabs, Refills(s) 0, Prophylaxis Start Date: 02/19/22 Status: Orderedcyclobenzaprine hydrochloride 10 mg oral tablet (3 sources)Muscle RelaxantStart: 04-24-2023 End: 89-79-4803srpe 1 tablet by mouth every twenty-four hours as needed cyclobenzaprine (FLEXERIL) 10 mg tablet Take 10 mg by mouth at bedtime as needed. 0 04/24/2023 08/13/2023 Discontinued (Course of therapy completed) Comment on above:Take 10 mg by mouth at bedtime as needed.diclofenac sodium 75 mg extended release oral tablet (3 sources)Nonsteroidal Anti-inflammatory Drug End: 01-18-8805ubfh 75 mg by mouth twice dailyDICLOFENAC SODIUM ORAL Take 75 mg by mouth twice daily. 0 02/08/2023 Discontinued (Discontinued by another Health Care Provider)Comment on above:Take 75 mg by mouth twice daily.ELDERBERRY FRUIT (13 sources) End: 69-12-9446morxczbgff fruit (ELDERBERRY ORAL) Take 1 teaspoonful by mouth once daily. 0 01/11/2023 Discontinued (Course of therapy completed)elderberry fruit (ELDERBERRY ORAL) Take 1 teaspoonful by mouth once daily. 0 ActiveComment on above:Take 1 teaspoonful by mouth once daily.hydroCHLOROthiazide 25 mg oral tablet (20 sources)Thiazide DiureticStart: 11-20-2021 End: 67-78-1536gleh 1 tablet by mouth once dailyhydroCHLOROthiazide 25 mg tablet Indications: Essential hypertension Take 1 tablet by mouth once daily. 90 tablet 3 11/12/2023 12/01/2024 Discontinued (Discontinued by another Health Care Provider)Comment on above:Take 1 tablet by mouth once daily.iv contrast (will be provided with radiology test) (16 sources)Start: 05-16-2020 End: 59-80-2329lbkgpx 1 dose intravenously onceiv contrast (will be provided with radiology test) CT Cardiac - No IV access, insert saline lock prior to the sedation, infusion, injection for imaging exam. Discontinue saline lock post exam. If Pt.has a central line or IVAD, may access for administration according to line specific nursing protocol. Once exam is complete flush line and de- access according to line specific nursing protocol in the CT contrast administration guidelines link. 1 Each 0 05/16/2020 02/08/2023 Discontinued (Other)Start: 33-18-5485ihwrbs 1 dose intravenously onceiv contrast (will be provided with radiology test) CT Cardiac - No IV access, insert saline lock lj or to the sedation, infusion, injection for imaging exam. Discontinue saline lock post exam. If Pt.has a central line or IVAD, may access for administration according to line specific nursing protocol. Once exam is complete flush line and de-access according to line specific nursing protocol in the CT contrast administration guidelines link. 1 Each 0 05/16/2020 ActiveComment on above:CT Cardiac - No IV access, insert saline lock prior to the sedation, infusion, injection for imaging exam. Discontinue saline lock post exam. If Pt. has a central line or IVAD, may access for administration according to line specific nursing protocol. Once exam is complete flush line and de-access according to line specific nursing protocol in the CT contrast administration guidelines link.10 ml lidocaine hydrochloride 10 mg/ml injection (1 source)Antiarrhythmic, Amide Local AnestheticStart: 07-08-2023 End: 54-99-7977odtiiuefh (PF) 10 mg/mL (1 %) 8 mL injection (XYLOCAINE)24 hr metoprolol succinate 25 mg extended release oral tablet (20 sources)beta-Adrenergic BlockerStart: 12-08-2024 End: 84-47-9680ugcj 1 tablet by mouth once daily in the eveningmetoprolol succinate ER (TOPROL XL) 25 mg 24 hr tablet Take 1 tablet by mouth every evening. 90 tablet 3 12/08/2024 05/10/2025 DiscontinuedStart: 09-19-2021 End: 15-77-6371uyeq 1 tablet by mouth once dailymetoprolol succinate ER (TOPROL XL) 50 mg 24 hr tablet Indications: Paroxysmal atrial fibrillation (HCC) Take 1 tablet by mouth once daily. 90 tablet 3 09/19/2021 08/15/2022 DiscontinuedStart: 08-28-2018 End: 03-45-0312zdbq 1 tablet by mouth once daily in the eveningmetoprolol succinate ER (TOPROL XL) 25 mg 24 hr tablet take 1 tablet by mouth every evening 90 tablet 3 08/19/2023 12/01/2024 Discontinued (Discontinued by another Health Care Provider)take 1 tablet by mouth every twenty-four hoursmetoprolol succinate XL (Toprol-XL) 50 MG 24 hr tablet Take by mouth. Do not crush or chew. Active Comment on above:Take 1 tablet by mouth once daily.Take 1 tablet by mouth every evening.take 1 tablet by mouth every lsufhxpyu-lr-uhhD-dzuMs-Zrg-Hew-hc124 (AIRBORNE, ASCORBATE SODIUM,) 334-1.7 mg chew (4 sources)take 1 tablet by mouth once uopfaxa-ov-ywxD-qsuGr-Vyr-Wsr-hc124 (AIRBORNE, ASCORBATE SODIUM,) 334-1.7 mg chew Take 1 tablet by mouthonce daily. 0 ActiveComment on above:Take 1 tablet by mouth once daily. ox-lx-jntQ-wleZm-Aws-Jma-hc124 334-1.7 mg chew (17 sources) End: 55-46-8213vjxg 1 tablet by mouth once lqllvqs-ws-oqnG-cnrFx-Nmp-Lxl-hc124 334-1.7 mg chew Take 1 tablet by mouth once daily. 0 08/13/2023 Discontinued (Duplicate Entry)take 1 tablet by mouth once etwrvxx-le-wihK-efdZm-Lxn-Wvf-hc124 334-1.7 mg chew Take 1 tablet by mouth once daily. 0 ActiveComment on above: Take 1 tablet by mouth once daily.omega 2-rve-nkf-fish oil (FISH OIL) 900-1,400 mg cpDR (20 sources)Start: 04-12-2021 End: 15-18-0769pasdj 3-aam-kwi-fish oil (FISH OIL) 900-1,400 mg cpDR Take 1,400 mg by mouth once daily. 0 04/12/2021 02/11/2024 Discontinued (Course of therapy completed)Start: 47-19-5426jmwrp 7-ljh-szi-fish oil (FISH OIL) 900-1,400 mg cpDR Take 1,400 mg by mouth once daily. 0 04/12/2021 ActiveComment on above:Take 1,400 mg by mouth once daily.SAW PALMETTO ORAL (14 sources) End: 82-03-6958xzcx 1 tablet by mouth once dailySAW PALMETTO ORAL Take 1 tablet by mouth once daily. 0 02/06/2023 Discontinued (Discontinued by Patient)take 1 tablet by mouth once dailySAW PALMETTO ORAL Take 1 tablet by mouth once daily. 0 Activetake 1 tablet by mouth twice dailySAW PALMETTO ORAL Take 1 tablet by mouth twice daily. 0 ActiveComment on above:Take 1 tablet by mouth twice daily. Take 1 tablet by mouth once daily.sulfamethoxazole 800 mg / trimethoprim 160 mg oral tablet (4 sources)Dihydrofolate Reductase Inhibitor Antibacterial, Sulfonamide AntimicrobialStart: 03-24-2025 End: 62-19-0687fnfn 1 tablet by mouth twice dailysulfamethoxazole-trimethoprim (BACTRIM DS) 800-160 mg per tablet Take 1 tablet by mouth two times aday. 20 tablet 03/24/2025 05/10/2025 Discontinued1 ml triamcinolone acetonide 40 mg/ml injection (1 source)CorticosteroidStart: 07-08-2023 End: 39-71-3161tqzgwsstrmpqe acetonide 80 mg injection (KeNALog 40) Problems Active Problems Problem ClassificationProblemDateDocumented DateEpisodic/ChronicAbdominal hernia (2 sources)Incisional hernia; Translations: [Incisional hernia without obstruction or gangrene]Onset: 95-54-9588AtfmhnmvDjlakxn disorders (1 source)Generalized anxiety nyayhjzg96-71-5685XhoylmiMxassr; peripheral; and visceral artery aneurysms (20 sources)Thoracic aortic aneurysm without rupture; Translations: [Thoracic aortic aneurysm, without rupture]Onset: 05-26-2018 Resolved: 629793-94-5104PmhwhxzVibepkz dysrhythmias (20 sources)Ventricular premature beats; Translations: [Paroxysmal atrial fibrillation]Onset: 472576-15-6907WhbacilLerkmra on above:occasionally Cataract (12 sources)Artificial lens present; Translations: [Presence of intraocular lens]Onset: 761545-32-5779SnqavlaUkpadrn obstructive pulmonary disease and bronchiectasis (1 source)Chronic obstructive lung jepjdgf30-82-5107ZlvtlfhBdsffllgqd associated with dizziness or vertigo (1 source)Lightheadedness; Translations: [Dizziness and giddiness]Episodic Deficiency and other anemia (1 source)Iron deficiency xzyynw02-17-8003McfilepfCfupzvxzu of lipid metabolism (20 sources)Hyperlipidemia; Translations: [Hyperlipidemia, unspecified]Onset: 243304-63-8945StlywynCblrylfbvdkgbe and diverticulitis (4 sources)Diverticular munrute49-03-0723DxhovotWukrulcih hypertension (20 sources)Hypertensive disorder; Translations: [Essential hypertension]Onset: 037904-55-6289KynianpAygyu valve disorders (20 sources)Aortic incompetence, non-rheumatic ; Translations: [Nonrheumatic aortic (valve) insufficiency]Onset: 966272-67-3287DlhyhbmZaqeyhcktex (4 sources)Fnrykgdusqa66-10-6697TiozlkofEkmljds and fatigue (2 sources)Physical deconditioning; Translations: [Other malaise]Episodic Nonspecific chest pain (6 sources)Precordial pain; Translations: [Precordial pain]EpisodicOther and unspecified benign neoplasm (4 sources)Polyp of colon; Translations: [Polyp of colon]Onset: 02-19-2022 EpisodicOther and unspecified benign neoplasm (5 sources)History of polyp of agxoo77-45-1159VhyjnwveBqnva and unspecified benign neoplasm (1 source)Benign neoplasm of major salivary emmbn41-82-4567LsdbfzhpRrxij circulatory disease (2 sources)History of replacement of ascending aorta; Translations: [Presence of other vascular implants and grafts]ChronicOther connective tissue disease (5 sources)Rotator cuff fwfxwnpe32-86-6988OkbnipcnFkkhp connective tissue disease (2 sources)Disorder of rotator cuff; Translations: [Unspecified rotator cuff tear or rupture of right shoulder, not specified as traumatic]51-00-8937Dbuenjzm Other connective tissue disease (2 sources)Unspecified rotator cuff tear or rupture of right shoulder, not specified as traumatic; Translations: [Disorders of bursae and tendons in shoulder region, unspecified]75-55-8730VvpcsamjUobgl connective tissue disease (1 source)Right rotator cuff syndrome; Translations: [Unspecified rotator cuff tear or rupture of right shoulder, not specified as traumatic]93-57-0104Izltwvpd Other eye disorders (3 sources)Ptosis of bilateral eyebrows; Translations: [Brow ptosis, bilateral] 42-10-5384AhquztvpCmnen eye disorders (1 source)Brow ptosis, bilateral; Translations: [Brow ptosis, bilateral]Onset: 96-95-6072TmvwnvakIbcpc gastrointestinal disorders (20 sources)History of gastrointestinal bleed; Translations: [Personal history of other diseases of the digestive system]73-07-8139GgxwcxczShtmy gastrointestinal disorders (4 sources)Loose enpyc83-00-9265ItxdsvbfFpsvc lower respiratory disease (1 source)Dyspnea on exertion; Translations: [Other forms of dyspnea]Episodic Other non-traumatic joint disorders (3 sources)Greater trochanteric pain syndrome of right lower limb; Translations: [Pain in right hip]28-62-6975BmknwknaAzmxv non-traumatic joint disorders (2 sources)Shoulder pain; Translations: [Pain in right shoulder]04-16-2025 EpisodicOther non-traumatic joint disorders (2 sources)Pain in right hip; Translations: [Pain in joint, pelvic region and thigh]86-73-6649WkdidquyHykaw non-traumatic joint disorders (2 sources)Pain in right shoulder; Translations: [Bilateral shoulder pain]Onset: 352694-51-6136VtazxppuAymbz nutritional; endocrine; and metabolic disorders (1 source)Ycqzenpqgw18-56-2347LdxenvdcJiaha skin disorders (4 sources)Mass of parotid dceeg69-29-2487TkjhpeidAegtzdj on above:RIGHTResidual codes; unclassified (5 sources)FH: Akroosbsehmc02-71-7415KeawkeqhSssuvrtw codes; unclassified (1 source)Procedure needed; Translations: [Other specified health status] EpisodicResidual codes; unclassified (1 source)Difficulty managing exercise regime; Translations: [Other specified health status]EpisodicUnclassified (5 sources)Bleeding ulcer (morphologic abnormality)06-46-7431Chqummw on above:HX IN JUNE 2014Unclassified (20 sources)Transition of care; Translations: [Transition of care performed with sharing of clinical summary]Onset: 832827-84-2646Tvzncolapnif (1 source)Dermatochalasis of both upper jfsuotv49-06-5442 Past or Other Problems Problem ClassificationProblemDateDocumented DateEpisodic/Chronic Administrative/social admission (20 sources)Discharge status; Translations: [Encounter for administrative examinations, unspecified]Onset: 218530-51-9169WxdkanzxJsewrbt dysrhythmias (20 sources)Palpitations; Translations: [Palpitations]Onset: 10-29-2016 18-39-3041FdoqbfspDqpexntlnet and hemorrhagic disorders (14 sources)Secondary thrombocytopenia; Translations: [Other secondary thrombocytopenia]Onset: 08-12-2018 Resolved: 245883-32-4404QtkovngmLgzhojlkelpir of surgical procedures or medical care (20 sources)Hypotension following procedure; Translations: [Postprocedural hypotension]Onset: 08-12-2018 Resolved: 263270-92-9122UnjnknuxVvxcnaypvc heart failure; nonhypertensive (14 sources)Heart failure; Translations: [Heart failure, unspecified]Onset: 08-12-2018 Resolved: 240412-84-8879QlfxrtxBjdgcwnn mellitus without complication (13 sources)Metabolic stress hyperglycemia; Translations: [Hyperglycemia, unspecified]Onset: 08-12-2018 Resolved: 399799-60-9475NglyyixiOuzpm and electrolyte disorders (13 sources)Hypervolemia; Translations: [Fluid overload, unspecified]Onset: 08-15-2018 Resolved: 775019-37-7246EftylkoaJujqtzfgjkofs and screening for infectious disease (3 sources)Patient encounter status; Translations: [Encounter for screening for human immunodeficiency virus [HIV]]Onset: 331078-25-0097QtyxgydnBlfer aftercare (1 source)Encounter for therapeutic drug level monitoring; Translations: [Encounter for therapeutic drug level monitoring]Onset: 94-12-1140LoaohaaqYilpk eye disorders (12 sources)Dry eyes; Translations: [Dry eye syndrome of unspecified lacrimal gland]Onset: 481924-33-5777GwjryhfzZzaqq eye disorders (12 sources)Meibomian gland dysfunction of bilateral eyes; Translations: [Meibomian gland dysfunction right eye, upper and lower eyelids]Onset: 521833-72-1714VxaibemyLajjc eye disorders (14 sources)Dermatochalasis of right upper eyelid; Translations: [Dermatochalasis]Onset: 290953-40-6966LmnfrdhoVfplx eye disorders (11 sources)Disorder of lacrimal gland; Translations: [Dry eye syndrome of bilateral lacrimal glands]Onset: 864267-74-5900ZpohedvtEmggs eye disorders (1 source)Dermatochalasis of left upper eyelid; Translations: [Dermatochalasis of both upper eyelids]Onset: 48-15-6101QxmhlblrOswhi eye disorders (1 source)Dry eye syndrome of bilateral lacrimal glands; Translations: [Dry eye syndrome of bilateral lacrimal glands]Onset: 38-56-5208ZqcjclsmFbasy eye disorders (1 source)Dry eye syndrome of unspecified lacrimal gland; Translations: [Dry eye]Onset: 58-14-3270CmcdzhjnLdkgf nervous system disorders (13 sources)Acute postoperative pain; Translations: [Other acute postprocedural pain]Onset: 08-12-2018 Resolved: 169402-75-4397NrgrpevpBbysf screening for suspected conditions (not mental disorders or infectious disease) (6 sources)Serum creatinine raised; Translations: [Other specified abnormal findings of blood chemistry]Onset: 37-34-8139SmbiavetDgmjnine; pneumothorax; pulmonary collapse (13 sources)Atelectasis; Translations: [Atelectasis]Onset: 08-15-2018 Resolved: 833788-18-3177HgmwrqgjYhxssxwk codes; unclassified (20 sources)Other amnesia; Translations: [Memory loss]Onset: 01-09-2017 18-40-4934MqmejeqtNdsauoqo codes; unclassified (20 sources)Age-associated memory impairment; Translations: [Other amnesia] Onset: 786431-62-8709AopgzwkaPnbpstcc codes; unclassified (16 sources)Memory finding; Translations: [Other amnesia]Onset: 01-09-2017 31-27-6730ArvalvtiUgcwfjxw codes; unclassified (12 sources)Transition of care; Translations: [Other specified health status] Onset: 804458-47-1579FbteudezExvigxtsohw failure; insufficiency; arrest (adult) (13 sources)Ventilator finding; Translations: [Dependence on respirator [ventilator] status]Onset: 08-12-2018 Resolved: 051094-95-2588HphbqrpRyzogcpufps; intervertebral disc disorders; other back problems (7 sources)Low back pain; Translations: [Bilateral low back pain]Onset: 546433-54-8209CykkvebhHdtwqxt and strains (20 sources)Strain of muscle(s) and tendon(s) of the rotator cuff of right shoulder, initial encounter; Translations: [Rotator cuff (capsule) sprain]Onset: 161022-22-0649Nvmotfzx Results Test NameValueInterpretationReference RangeFacilityCNPNon 79-75-5173MOHZ Telephone (PLASMN) PUSHPAWALLY CARCAMO ([id number]) 1945 M Date Time Provider Department 06/17/25 ANGELES DECKER During your visit today, we recorded the following information about you: Sandrita Pate HUC 06/17/2025 12:58 PM Signed Patient called. Patient was very upset and said he wanted to report an issue with wharf tender head. He stated that he called the wharf tender head a couple times and canceled, never heard back, and today he was receiving calls from [facility] about his upcoming surgery. He was very upset that this was not done and stated he will not come back to the clinic. He took the [facility]'s number and is contacting them. Allergies As of Date: 06/17/2025 Noted Allergy Reaction HYDROCODONE-ACETAMINOPHEN 12/08/2024 16 - Unknown LISINOPRIL 04/26/2017 3 - Cough OXYCODONE 06/10/2023 9 - Itching AMOXICILLIN 12/08/2024 6 - Diarrhea Date Reviewed: 05/10/2025 Reviewed by: Angeles Decker MD - Fully Assessed Prescriptions as of 06/17/2025 - metoprolol succinate ER (TOPROL XL) 50 mg 24 hr tablet Take 50 mg by mouth once daily. - irbesartan (AVAPRO) 300 mg tablet Take 1 tablet by mouth daily at bedtime. - MULTIVITAMIN ORAL Take by mouth. - furosemide (LASIX) 20 mg tablet Take [...] take 3 tablet once per day - kf-em-G-theanine-herb no.310 (AIRBORNE EVERYDAY STRESS AWAY) 1,000 mg-200 [...] twice daily. Problem List As Of Date 06/17/2025 Noted Resolved Palpitations [R00.2] 10/29/2016 Primary hypertension [...] [H02.831,*12/22/2024 Pseudophakia [Z96.1] 12/22/2024 Encounter Status:Closed by SANDRITA PATE on 06/17/25[facility] 06-43-5406YLLFRvkenb Visit (PLASMN) WALLY BARROW ([id number]) 1945 M Date Time Provider Department 05/10/25 2:15 PM ANGELES DECKER During your visit today, we recorded the following information about you: Pulse Blood pressure Weight Height 61/minute 103/78 83 kg 1.778 m Angeles Decker MD 05/10/2025 3:18 PM Signed BLEPHAROPLASTY Patient Evaluation and Operative Planning CC: .....follow up Bilateral upper and brow lift ......... ? HPI: Wally is a 79 year old male who presents today for evaluation of bilateral upper blepharoplasty and brow lift. Patient was seen by a plastic surgeon in [place] and was approved for surgery but would like a second opinion. Patient has had multiple seborrheic keratosis that was treated by a soil sampler with liquid nitrogen. Patient reports that he [...] here today to discuss a surgery date. New symptoms since last visit with licensed marriage and family therapist includes double vision. Occupation: Retired Patient Concerns: Tired appearance: yes [...] Diagnosis Date Aortic insufficiency Ascending aortic aneurysm Dilated aortic root History of GI bleed history of bleeding ulcer HLD (hyperlipidemia) Hypertension 11/25/1989 Mitral insufficiency Paroxysmal atrial fibrillation (HCC) 08/15/2018 Tricuspid insufficiency Current Outpatient Medications Medication Sig Dispense Refill metoprolol succinate ER (TOPROL XL) 50 mg 24 hr tablet Take 50 mg by mouth once daily. irbesartan (AVAPRO) 300 mg tablet Take 1 tablet by mouth daily at bedtime. 90 tablet 3 MULTIVITAMIN ORAL Take by mouth. furosemide (LASIX) 20 mg tablet Take 20 mg by mouth once daily. simvastatin (ZOCOR) 20 mg tablet daily at bedtime. iron bisgly,ps-FA-B-C#12-succ 65 mg-65 mg -1,000 mcg (24) tab Take 65 mg by mouth once weekly aspirin, enteric coated (ASPIRIN, ENTERIC COATED) 81 mg EC tablet Take 81 mg by mouth once daily. OTC PRODUCT once daily. OTC Force Factor take 3 tablet once per day sh-fq-J-theanine-herb no.310 (AIRBORNE EVERYDAY STRESS AWAY) 1,000 mg-200 [...] No current facility-administered medications for this visit. BP 103/78 Pulse 61 Ht 177.8 cm (5' 10 ) Wt 83 kg (183 lb) BMI 26.26 kg/m? ALLERGIES Allergen Reactions Hydrocodone-Acetami* Unknown Lisinopril Cough Oxycodone Itching Amoxicillin Diarrhea Body mass index is 26.26 kg/m?. Estimated body surface area is 2.02 meters squared (more content not included)...NormalMercy Health West HospitalX-ray reportOrdered By: Gopi Lopez on 40-32-7816Hxeao report[facility] [address] [place] [address] XRay Report Signed Patient: Wally Barrow MR#: [id number] : 1945 Acct:[id number] Age/Sex: 79 / M ADM Date: 5 Loc: [facility] [place] Room: Type: [facility] Attending Dr: Joo Morrell DO Copies to: Joo Morrell DO~ Ordering Provider: Joo Morrell DO Date of Service: 04/22/25 XR/XR shoulder RT min 2V*: M25.511 - Pain in right shoulder ([id number]) XR/XR hip RT min 2V(w/wo pelvis)*: PAIN 4 views right shoulder plain film HISTORY: Right shoulder pain for months COMPARISON: None ACUTE FINDINGS: None DEGENERATIVE CHANGE: Mild marginal spurring SOFT TISSUE FINDINGS: Unremarkable JOINT EFFUSION: None POSTOP CHANGES: 4 anchor screws in the humeral head without complication BONY MINERALIZATION: Adequate XR/XR shoulder RT min 2V* IMPRESSION: No hardware complication. Mild degeneration. 2 views right hip a single view pelvis Adequate hip joint spaces. Bony articular surfaces preserved. No AVN. No acute displaced fracture. Adequate SI joints. IMPRESSION: Unremarkable exam Impression dictated by: Gopi Lopez M.D. 04/22/2025 12:54 PM Dictation Location: [place] [address] Transcribed By: [facility] 04/22/25 1254 Dictated By: Gopi Lopez DO 04/22/25 1252 Signed By: 04/22/25 1254 [facility] 2V(w/wo pelvis)*on 76-20-5314EW hip RT min 2V(w/wo pelvis)*[facility] [address] [place] [address] XRay Report Signed Patient: Wally Barrow MR#: [id number] 3 : 1945 Acct:[id number] Age/Sex: 79 / M ADM Date: 04/22/25 Loc: [facility] [place] Room: Type: [facility] Attending Dr: Joo Morrell DO Copies to: Joo Morrell DO Ordering Provider: Joo Morrell DO Date of Service: 04/22/25 XR/XR shoulder RT min 2V*: M25.511 - Pain in right shoulder ([id number]) XR/XR hip RT min 2V(w/wo pelvis)*: PAIN 4 views right shoulder plain film HISTORY: Right shoulder pain for months COMPARISON: None ACUTE FINDINGS: None DEGENERATIVE CHANGE: Mild marginal spurring SOFT TISSUE FINDINGS: Unremarkable JOINT EFFUSION: None POSTOP CHANGES: 4 anchor screws in the humeral head without complication BONY MINERALIZATION: Adequate XR/XR shoulder RT min 2V* IMPRESSION: No hardware complication. Mild degeneration. 2 views right hip a single view pelvis Adequate hip joint spaces. Bony articular surfaces preserved. No AVN. No acute displaced fracture. Adequate SI joints. IMPRESSION: Unremarkable exam Impression dictated by: Gopi Lopez M.D. 04/22/2025 12:54 PM Dictation Location: [facility] Transcribed By: [facility] 04/22/25 1254 Dictated By: Gopi Lopez DO 04/22/25 1252 Signed By: 04/22/25 1254[facility] Physician GroupCNPNon [id number] (PLASMN) WALLY BARROW ([id number]) 1945 M Date Time Provider Department 04/16/25 ANGELES DECKER During your visit today, we recorded the following information about you: Sandrita Pate HUC 04/16/2025 4:22 PM Signed Patient called. Stated that in November he came in to see the doctor for his eyes and was approved for surgery. He was not able to schedule due to taking care of his . Now he stated he is ready to go forward, and has left messages with the wharf tender head. Is there anything he needs to do, or can he be scheduled? Allergies As of Date: 04/16/2025 Noted Allergy Reaction HYDROCODONE-ACETAMINOPHEN 12/08/2024 16 - Unknown LISINOPRIL 04/26/2017 3 - Cough OXYCODONE 06/10/2023 9 - Itching AMOXICILLIN 12/08/2024 6 - Diarrhea Date Reviewed: 03/24/2025 Reviewed by: Miladis Jade MA - Fully Assessed Prescriptions as of 04/16/2025 - irbesartan (AVAPRO) 300 mg tablet Take 1 tablet by mouth daily at bedtime. - sulfamethoxazole-trimethoprim (BACTRIM DS) 800-160 mg per tablet Take 1 tablet by mouth two times a day. - cefdinir (OMNICEF) 300 mg capsule Take 2 capsules by mouth once daily. - MULTIVITAMIN ORAL Take by mouth. - [...] take 3 tablet once per day - cj-cw-S-theanine-herb no.310 (AIRBORNE EVERYDAY STRESS AWAY) 1,000 mg-200 [...] twice daily. Problem List As Of Date 04/16/2025 Noted Resolved Palpitations [R00.2] 10/29/2016 Primary hypertension [...] [H02.831,*12/22/2024 Pseudophakia [Z96.1] 12/22/2024 Encounter Status:Closed by SANDRITA PATE on 04/16/25[facility] metabolic 2000 panelon 66-46-0230Ortfb gap [Moles/Vol]11 mmol/L8 - 15 mmol/LCleveland ClinicCalcium [Mass/Vol]9.9 mg/dL8.5 - 10.2 mg/dLDayton Children'S HospitalChloride [Moles/Vol]106 mmol/L98 - 107 mmol/LCleveland ClinicCO2 [Moles/Vol]24 mmol/L22 - 30 mmol/LCleveland ClinicCreatinine [Mass/Vol]1.26 mg/dLHigh0.73 - 1.22 mg/dLViola ClinicGFR/1.73 sq M.predicted among non- blacks MDRD (S/P/Bld) [Vol rate/Area]58 mL/min/{1.73_m2}Low- PINFClevelSelect Medical Specialty Hospital - Boardman, IncComment on above:Estimated Glomerular Filtration Rate (eGFR) is calculated using the 2020 CKD-EPI creatinine equation. This equation utilizes serum creatinine, sex, and age as parameters. The creatinine assay has traceable calibration to isotope dilution-mass spectrometry. Refer to KDIGO guidelines for clinical interpretation. In patients with unstable renal function, e.g. those with acute kidney injury, the eGFRmay not accurately reflect actual GFR.Glucose [Mass/Vol]93 mg/dL74 - 99 mg/dLDayton Children'S HospitalComment on above:The [place] Diabetes Association (ADA) provides guidance for cutoff values for fasting glucose andrandom glucose. The ADA defines fasting as no [...] Standards of Medical Care in Diabetes 2016, [place] Diabetes Association. Diabetes Care. 2016.39(Suppl 1). Interpretation and review of laboratory resultsAbnormalCleveland ClinicPotassium [Moles/Vol]4.5 mmol/L3.7 - 5.1 mmol/LCleveland ClinicSodium [Moles/Vol]141 mmol/L136 - 144 mmol/LCleveland ClinicUrea nitrogen [Mass/Vol]14 mg/dL9 - 24 mg/dLMagruder Memorial HospitalAnion gap [Moles/Vol]11 mmol/LNormal8-15 [facility] on above:Order Comment: Specimen Type: BLOOD SPECIMENOrdering Facility: [facility] Address:[address] [place], [place] [address]Performed By: #### 12187-8 ####[facility] LABCLIA [id number] [place] [address] [place] AMERICACalcium [Mass/Vol]9.9 mg/dLNormal8.5-10.2CGreene Memorial Hospital Comment on above:Order Comment: Specimen Type: BLOOD SPECIMENOrdering Facility: [facility] Address:[address] [place] [address] Performed By: #### 91136-8 ####[facility] LABCLIA [id number] [place] [address] [place] Chloride [Moles/Vol]106 mmol/VKrvvij06-703AocagduvaUC West [facility] Hospital on above:Order Comment: Specimen Type: BLOOD SPECIMENOrdering Facility: [facility] Address:[address] [place], [place] [address]Performed By: #### 61259-4 ####[facility] LABCLIA [id number] [place] [id number] [place] AMERICACO2 [Moles/Vol]24 mmol/GPquxgf03-58GtoobbsotUC West [facility] Hospital on above:Order Comment: Specimen Type: BLOOD SPECIMENOrdering Facility: [facility] Address:[address] [place], [place] [address]Performed By: #### 10025-2 ####[facility] LABCLIA [id number] [place] [id number] [place] AMERICACreatinine [Mass/Vol]1.26 mg/dL High0.73-1.22[facility] on above:Order Comment: Specimen Type: BLOOD SPECIMENOrdering Facility: [facility] Address:[address] [place], [place] [address]Performed By: #### 66333-0 ####[facility] [id number] [place] [address] [place] [facility] SYSTEMCreatinine and Glomerular filtration rate.predicted panel (S/P/Bld)58 mL/min/1.73m???Low>=60[facility] on above:Order Comment: Specimen Type: BLOOD SPECIMENOrdering Facility: [facility] Address:[address] [place], [place] [address]Result Comment: Estimated Glomerular Filtration Rate (eGFR) is calculated using the 2020 CKD-EPI creatinine equation. This equation utilizes serum creatinine, sex, and age as parameters. The creatinine assay has traceable calibration to isotope dilution- mass spectrometry. Refer to KDIGO guidelines for clinical interpretation. In patients with unstable renal function, e.g. those with acute kidney injury, the eGFR may not accurately reflect actual GFR.Performed By: #### 31280-4 ####[facility] LABGIFFORD MEDICAL CENTER [id number] [place] [address] [place] AMERICAGlucose [Mass/Vol]93 mg/dLNormal 74-99[facility] on above:Order Comment: Specimen Type: BLOOD SPECIMENOrdering Facility: [facility] Address:[address] [place], [place] [address]Result Comment: The [place] Diabetes Association (ADA) provides guidance for cutoff [...] Standards of Medical Care in Diabetes 2016, [place] Diabetes Association. Diabetes Care. 2016.39(Suppl 1).Performed By: #### 88529-0 ####[facility] LABCLIA [id number] [place] [address] [place] AMERICAPotassium [Moles/Vol]4.5 mmol/L Normal3.7-5.1CGreene Memorial HospitalComment on above:Order Comment: Specimen Type: BLOOD SPECIMENOrdering Facility: [facility] Address:[address] [place], [place] [address]Performed By: #### 79542-6 ####[facility] LABIA [id number] [address] STATES OF [facility]ALTH SYSTEMSodium [Moles/Vol]141 mmol/NHbbsra316-770OqagjlxdwMercy Health West HospitalComhenry ford [facility] on above:Order Comment: Specimen Type: BLOOD SPECIMENOrdering Facility: [facility] Address:[address] [place], [place] [address]Performed By: #### 08053-2 ####[facility] [id number] [place] [address] [place] AMERICAUrea nitrogen [Mass/Vol]14 mg/dLNormal9-24[facility] Comment on above:Order Comment: Specimen Type: BLOOD SPECIMENOrdering Facility: [facility] Address:[address] [place] [address] Performed By: #### 24699-0 ####[facility] [id number] [address] STATES OF [place] CNOVon 46-84-9856RJNZPirsym Visit (CARD P) WALLY BARROW ([id number]) 1945 Date Time Provider Department 03/24/25 11:00 AM OSMANI, ABEBA CARD P During your visit today, we recorded the following information about you: Pulse Blood pressure Weight Height 61/minute 103/67 81.7 kg 1.778 m Abeba Keen APRN.CNP 03/30/2025 12:06 AM Signed [facility] [place] [facility] Department of Cardiovascular Medicine SECTION OF PREVENTIVE CARDIOLOGY 03/24/2025 Wally Barrow CURRENT MEDS: Current Outpatient Medications Medication Sig sulfamethoxazole-trimethoprim (BACTRIM DS) 800-160 mg per tablet Take 1 tablet by mouth two times a day. cefdinir (OMNICEF) 300 mg capsule Take 2 capsules by mouth once daily. irbesartan (AVAPRO) 300 mg tablet Take 1 tablet by mouth daily at bedtime. MULTIVITAMIN ORAL Take by mouth. metoprolol succinate ER (TOPROL XL) 25 mg 24 hr tablet Take 1 tablet by mouth every evening. furosemide (LASIX) 20 mg tablet Take 20 mg by mouth once daily. simvastatin (ZOCOR) 20 mg tablet daily at bedtime. iron bisgly,ps-FA-B-C#12-succ 65 mg-65 mg -1,000 mcg (24) tab Take 65 mg by mouth once weekly aspirin, enteric coated (ASPIRIN, ENTERIC COATED) 81 mg EC tablet Take 81 mg by mouth once daily. OTC PRODUCT once daily. OTC Force Factor take 3 tablet once per day ym-ok-[facility]-herb no.310 (AIRBORNE EVERYDAY STRESS AWAY)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 [address] [place] HbA1c (Bld) [Mass fraction]5.2 %Normal4.3-5.6CDelaware County Hospital on above:Order Comment: Specimen Type: BLOOD SPECIMENOrdering Facility: [facility] Address:[address] [place], [place] [address]Result Comment: [place] Diabetes Association guidelines indicate that patients with HgbA1c in the range 5.7-6.4% are at increased risk for development of diabetes, and intervention by lifestyle modification may be beneficial. HgbA1c greater or equal to 6.5% is considered diagnostic of diabetes.Performed By: #### 82766-1 ####[facility] LABIA [id number] [place] [address] [place] AMERICALipid 1996 panelon 12-28-2024 Cholesterol [Mass/Vol]107 mg/dLNormal<200[facility] on above:Order Comment: Specimen Type: BLOOD SPECIMENOrdering Facility: [facility] Address:[address] [place], [place] [address]Result Comment: <200 mg/dL, Desirable 200-239 mg/dL, Borderline high >239 mg/dL, HighPerformed By: #### 31047-5, 92051-3 ####[facility] LABIA [id number] [address] STATES OF AMERICACholesterol in HDL [Mass/Vol]37 mg/dLLow>39[facility] on above:Order Comment: Specimen Type: BLOOD SPECIMENOrdering Facility: [facility] Address:[address] [place], [place] [address]Result Comment: 40-59 mg/dL, Acceptable >59 mg/dL, High: Negative risk factor for coronary heart disease <40 mg/dL, Low: Positive risk factor for coronary heart diseasePerformed By: #### 23343-1, 79453-6 ####[facility] LABCLIA [id number] [place] [address] [place] AMERICACholesterol in LDL [Mass/Vol]45 mg/dLNormal<100[facility] on above:Order Comment: Specimen Type: BLOOD SPECIMENOrdering Facility: [facility] Address:[address] [place], [place] [address]Result Comment: <100 mg/dL, Optimal 100-129 mg/dL, Near optimal/above optimal 130-159 mg/dL, Borderline high 160-189 mg/dL, High >189 mg/dL, Very high Secondary prevention optimal LDL Cholesterol levels are recommended to be < 70 mg/dLPerformed By: #### 19020-6, 82543-2 ####[facility] LABCLIA [id number] [place] [address] [place] AMERICACholesterol in LDL/Cholesterol in HDL [Mass ratio]1.22 {ratio}Normal <2.54[facility] on above:Order Comment: Specimen Type: BLOOD SPECIMENOrdering Facility: [facility] Address:[address] [place], [place] [address]Result Comment: Reference: 1. National Cholesterol Education Program ATP III Guideline At-A-Glance Quick Desk Reference: National Heart, Lung, and Blood [place]. National Institutes of Health. 2001: NIH Publication No. 01-3305. 2. An International Atherosclerosis Society position paper: global recommendations for the management of dyslipidemia: executive summary, Atherosclerosis. 2014: 232(2):410-413.Performed By: #### 94183-8, 42839-0 ####[facility] LABCLIA [id number] [place] [id number] [place] AMERICACholesterol in VLDL [Mass/Vol]25 mg/dLNormal<30[facility] on above:Order Comment: Specimen Type: BLOOD SPECIMENOrdering Facility: [facility] Address:[address] [id number] By: #### 84966-6, 75711-8 ####[facility] LABCLIA [id number] [place] [address] [place] AMERICACholesterol non HDL [Mass/Vol]70 mg/dLNormal<130[facility] on above:Order Comment: Specimen Type: BLOOD SPECIMENOrdering Facility: [facility] Address:[address] [place], [place] [address]Result Comment: <130 mg/dL, Optimal 130-159 mg/dL, Near optimal/above optimal 160-189 mg/dL, Borderline high 190-219 mg/dL, High >219 mg/dL, Very high Secondary prevention optimal non HDL Cholesterol levels are recommended to be <100 mg/dLPerformed By: #### 58440-1, 07212-3 ####[facility] LABCLIA [id number] [address] STATES [facility]CH HOSPITALCholesterol.total/Cholesterol in HDL [Mass ratio]2.89 {ratio}Normal<5.10 [facility] on above:Order Comment: Specimen Type: BLOOD SPECIMENOrdering Facility: [facility] Address:[address] [place], [place] [address]Performed By: #### 98136-4, 39662-0 ####[facility] LABCLIA [id number] [place] [address] [place] AMERICAFASTING TIME12 hrsNormalCDelaware County Hospital on above:Order Comment: Specimen Type: BLOOD SPECIMENOrdering Facility: [facility] Address:[address] [place], [place] [address]Performed By: #### 44679-1, 65970-2 ####[facility] LABCLIA [id number] [place] [id number] [place] AMERICATriglyceride [Mass/Vol]127 mg/dLNormal<150[facility] ClevelandComment on above:Order Comment: Specimen Type: BLOOD SPECIMENOrdering Facility: [facility] Address:[address] [place], [place] [address]Result Comment: <150 mg/dL, Normal 150-199 mg/dL, Borderline high 200-499 mg/dL, High >499 mg/dL, Very highPerformed By: #### 96222-4, 12077-0 ####[facility] LABCLIA [id number] [address] OF AMERICANICOTINE/COTININEon 95-40-7277Vafrajob [Mass/Vol]<2 Normal<2CGreene Memorial HospitalComhenry ford [facility] on above:Order Comment: Specimen Type: BLOOD SPECIMENOrdering Facility: [facility] Address:[address] [place], [place] [address]Result Comment: Active tobacco product user: Nicotine concentration: 30 - 50 ng/mL Cotinine concentration: 200 - 800 ng/mL Passive exposure to tobacco: Nicotine concentration: < 2 ng/mL Cotinine concentration: < 8 ng/mL Unexposed non-tobacco user or abstinent user for > 2 weeks: Nicotine concentration: < 2 ng/mL Cotinine concentration: < 2 ng/mL This test was developed, and its performance characteristics determined by the [facility] Department of Pathology and Laboratory Medicine. It has not been cleared or approved by the FDA. The [facility] Department of Pathology and Laboratory Medicine is regulated under CLIA as qualified to perform high-complexity testing. This test is used for clinical purposes. It should not be regarded as investigational or for research.Performed By: #### NICOT ####[facility] LABCLIA [id number] [place] [id number] [place] AMERICANicotine [Mass/Vol]<2Normal<2 [facility] on above:Order Comment: Specimen Type: BLOOD SPECIMENOrdering Facility: [facility] Address:[address] [place], [place] [address]Performed By: #### NICOT ####[facility] LABCLIA [id number] [place] [id number] [place] AMERICANo Panel Informationon 19-59-9704Fnmywehmlidpda and review of laboratory resultsNormalCParkview HealthPT panel Coag (PPP)on 12-28-2024 INR Coag (PPP) [Relative time]1.1 {INR}0.9 - 1.3CMemorial Health System on above:Vitamin K Antagonist (VKA) Therapeutic Range: INR 2 to 3 (Target INR of 2.5) Note: For patients treated with VKA drugs, such as warfarin, the [place] [employer] 2012 Guideline recommends [...] to 3.5 (target INR of 3). Jamir GH, et al. Chest 2012, 141:7S-47S Anjel RA, et al. [facility] 2017, 70: 252-289 PT Coag (PPP) [Time]11.4 [facility] FoundationINR Coag (PPP) [Relative time]1.1 {INR}Normal0.9-1.3CDelaware County Hospital on above:Order Comment: Specimen Type: BLOOD SPECIMENOrdering Facility: [facility] Address:[address] [place], [place] [address]Result Comment: Vitamin K Antagonist (VKA) Therapeutic Range: INR 2 to 3 (Target INR of 2.5) Note: For patients treated with VKA drugs, such as warfarin, the [place] [employer] 2012 Guideline recommends [...] to 3.5 (target INR of 3). Jamir GH, et al. Chest 2012, 141:7S-47S Anjel RA, et al. [facility] 2017, 70: 252-289Performed By: #### 79279-2, 02310-0 ####[facility] LABCLIA [id number] [place] [id number] [place] OF [facility]EL HEALTH SYSTEMPT Coag (PPP) [Time]11.4 sNormal 9.7-13.0[facility] on above:Order Comment: Specimen Type: BLOOD SPECIMENOrdering Facility: [facility] Address:[address] [place], [place] [address]Performed By: #### 91012-6, 74804-8 ####[facility] LABCLIA [id number] [address] METABOLITE, SERUM,QUANTITATIVEon 12-28-2024 88-TXV-9-CARBOXY-THC<5NormalClevelParkview Health Bryan Hospital on above:Order Comment: Specimen Type: BLOOD SPECIMENOrdering Facility: [facility] Address:[address] [place], [place] [address]Result Comment: INTERPRETIVE INFORMATION: THC Metabolite, Serum or Plasma, Quantitative Methodology: Quantitative Liquid Chromatography-Tandem Mass Spectrometry. Positive cutoff: 5 ng/mL For medical purposes only; not valid for forensic use. The drug analyte detected in this assay, 9-carboxy THC, is a metabolite of gcfcs-5-hvpoxxgnrltchyvkyazx (THC). Detection of 9-carboxy THC suggests use of, or exposure to, a product containing THC. This test cannot distinguish between prescribed or non-prescribed forms of THC, nor can it distinguish between active or passive use. The plasma half-life for 9-carboxy THC metabolite is estimated to range from 4-12 hours. This test was developed and its performance characteristics determined by [facility]. It has not been cleared or approved by the US Food and Drug Administration. This test was performed in a CLIA certified laboratory and is intended for clinical purposes. Performed By: [facility] [address] [place] [address] Divisional Merchandising Manager: Earl Matthew MD, PhD CLIA Number: [id number] By: #### THCMET ####[facility] LABORATORIESCLIA [id number] [place], [place] [address]mOAJ Coag (PPP) [Time]on 62-85-4824Rkalniwgtxwccc Heparin Therapeutic Ranges: Standard Heparin Nomogram: 53 to 78 seconds (anti-Xa level of 0.3 to 0.7 U/ml) Low Dose/ACS Nomogram: 49 to 67 seconds (anti-Xa level of 0.2 to 0.5 U/ml) Stroke Treatment Nomogram: 49 to 67 seconds (anti-Xa level of 0.2 to 0.5 U/ml) Note: The APTT therapeutic range has been determined for the current lot of laboratory APTT reagentin use throughout the [facility]. [place] [facility]'S HospitalaPTT PPPon 62-82-2102zORC Coag (PPP) [Time]27.1 eMpptrk27.0-32.4 [facility] West HospitalComment on above:Order Comment: Specimen Type: BLOOD SPECIMENOrdering Facility: [facility] Address:[address] [place], [place] [address]Performed By: #### 18820-3, 68657-1 ####[facility] LABCLIA [id number] [place] [address] [place] AMERICACNOVon 20-07-0812MIXSJkcknz Visit (PLASMN) WALLY BARROW ([id number]) 1945 M Date Time Provider Department 12/08/24 11:00 AM ANGELES DECKER PLASMAlisia During your visit today, we recorded the following information about you: Angeles Decker MD 12/08/2024 2:47 PM Signed BLEPHAROPLASTY Patient Evaluation and Operative Planning CC: ....Consult.Bilateral upper and brow lift ......... ? HPI: Wally is a 79 year old male who presents today for evaluation of bilateral upper blepharoplasty and brow lift. Patient was seen by a plastic surgeon in [place] and was approved for surgery but would like a second opinion. Patient has had multiple seborrheic keratosis that was treated by a soil sampler with liquid nitrogen. Patient reports that he [...] Factor take 3 tablet once per day yj-ft-S-theanine-herb no.310 (AIRBORNE EVERYDAY STRESS AWAY) 1,000 mg-200 [...] 08/15/2022 114/72 02/05/2022 108/ (more content not included)...NormalMercy Health West Hospital CNPChelsi 71-97-8774SNJXXemqognhr (PLASMN) WALLY BARROW ([id number]) 1945 M Date Time Provider Department 12/08/24 ANGELES DECKER PLASMN During your visit today, we recorded the [...] Visit: Patient Question [1477] Prescriptions as of 02/02/2025 - irbesartan (AVAPRO) [...] take 3 tablet once per day - jp-xd-Z-theanine-herb no.310 (AIRBORNE EVERYDAY STRESS AWAY) 1,000 mg-200 [...] [*07/08/2023 Encounter Status:Closed by JL LAURENT on 02/02/25[facility] 15-61-3631SBUGXdyomb Visit (CARD P) PUSHPAWALLY ([id number]) 1945 M Date Time Provider Department 12/01/24 9:30 AM ABEBA KEEN P During your visit today, we recorded the following information about you: Pulse Blood pressure Weight Height 70/minute 148/95 83.9 kg 1.778 m Abeba Keen APRN.THERAPEUTIC ACTIVITIES SERVICES WORKER 12/08/2024 5:19 PM Addendum [facility] [place] [facility] Department of Cardiovascular Medicine SECTION [...] Factor take 3 tablet once per day wy-vh-N-theanine-herb no.310 (AIRBORNE EVERYDAY STRESS AWAY) 1,000 mg-200 [...] kg/m? BMI 26.54 kg/(m2 (more content not included)...NormalMercy Health West Hospital ECHOon 59-08-8044TLDLDJSZJBU: - Exam indication: AVR - The left [...] RVSP * * * Final * * *[facility] Echocardiography Report: Transthoracic Echo Main [place] J1-5 Date of service: 12/01/2024 3:49:55 PM SAW OPERATOR Ordering physician: ABEBA KEEN Indication: AVR Technologist: Georgina Kc and Elizabeth Becker RDCS Fellow: Alessio Laboy MD Interpreting physician: Yosi Lambert MD PATIENT: Name: MR. WALLY BARROW : 1945 Age: 79 years Gender: M History of valvular heart disease. Previous cardiovascular interventions: Aortic valve replacement (2017) Aortic Root Replacement (2017) Ascending ao replacment [...] is no pericardial effusion. [facility]ART AND VASCULAR INSTITUTEDayton Children'S HospitalEchocardiographyEchocardiography Report: Transthoracic Echo [facility] J1-5 Date of service: 12/01/2024 3:49:55 PM SAW OPERATOR Ordering physician: ABEBA KEEN Indication: AVR Technologist: [...] (size #27). There is no aorticvalve regurgitation. Thepeak gradient is 24 mmHg, the mean gradient is 13 mmHg and the dimensionless valve index is 0.46. Prior Pk/Mn gradients of 23/13 mmHg. - Estimated right ventricular systolic pressure is 35 mmHg consistent with mild pulmonary hypertension. Estimated right atrial pressure is 3 mmHg based on IVC assessment. - Exam was compared with the prior echocardiographic exam performed on 05/15/2023. Stable aorticprosthesis. TR slightly more prominent / better visualized on the current study. Similar estimated RVSP (more content not included)...NormalMercy Health West HospitalAmbulatory Visit Summaryon 31-28-3346Zftqlxhofs Visit SummaryAmbulatory Visit Summary WALLY BARROW :1945 Visit Date:08/14/2024 Ambulatory Visit Instructions Your Care Team Attending Physician - AGATHA SOLIZ, Sarah Chatman Primary Care Physician - Dae SOLIZ, Onel Referring Physician - Onel Isaacs MD This [...] you for choosing us for your care. [facility] HospitalEXERCISE STRESS ECG (WITHOUT IMAGING)on 16-00-8543Ykhhjxxgb ClinicBasic metabolic 2000 panelon 02-06-2023 Anion gap [Moles/Vol]11 mmol/L9 - 18 mmol/LCleveland ClinicCalcium [Mass/Vol]9.8 mg/dL8.5 - 10.2 mg/dLDayton Children'S HospitalChloride [Moles/Vol]107 mmol/LHigh97 - 105 mmol/LCleveland ClinicCO2 [Moles/Vol]25 mmol/L22 - 30 mmol/LCleveland Clinic Creatinine [Mass/Vol]1.43 mg/dLHigh0.73 - 1.22 mg/dLDayton Children'S HospitalEstimated Glomerular Filtration Rate51 mL/min/1.73mLow>=60 mL/min/1.73mCleveland Clinic Glucose [Mass/Vol]93 mg/dL74 - 99 mg/dLDayton Children'S HospitalPotassium [Moles/Vol]3.7 mmol/L3.7 - 5.1 mmol/LCleveland ClinicSodium [Moles/Vol]143 mmol/L136 - 144 mmol/LCleveland ClinicUrea nitrogen [Mass/Vol]20 mg/dL9 - 24 mg/dLSelect Medical TriHealth Rehabilitation HospitalC panel Auto (Bld)on 58-19-5677Cnhdtugzhmj distribution width (RBC) [Ratio]14.1 %11.5 - 15.0 %[place] [facility]'S HospitalHematocrit (Bld) [Volume fraction]46.7 %39.0 - 51.0 %[place] [facility]S HospitalHemoglobin (Bld) [Mass/Vol]15.2 g/dL13.0 - 17.0 g/dLSuburban Community Hospital & Brentwood HospitalH (RBC) [Entitic mass]29.0 pg26.0 - 34.0 pgClevelEssentia HealthHC (RBC) [Mass/Vol]32.5 g/dL30.5 - 36.0 g/dLSuburban Community Hospital & Brentwood HospitalV (RBC) [Entitic vol]89.1 fL80.0 - 100.0 fLCleveland ClinicNucleated RBC (Bld) [#/Vol] <0.01 k/City HospitalPlatelet mean volume (Bld) [Entitic vol]11.0 fL9.0 - 12.7 fLClevelunc health caldwell ClinicPlatelets (Bld) [#/Vol]152 10*3/uL150 - 400 k/City HospitalRBC (Bld) [#/Vol]5.24 10*6/uL4.20 - 6.00 m/City HospitalWBC (Bld) [#/Vol]7.89 10*3/uL3.70 - 11.00 k/[facility] CARDIAC PERF STRESS/PHARM on 62-77-0424Qqszidyur ClinicCHEMISTRYOrdered By: SYSTEM SYSTEM on 01-07-2023 Creatinine [Mass/Vol]1.2 mg/dLNormal0.5 - 1.3 mg/dLNORMAN REGIONAL [facility] RemisolGFR/1.73 sq M.predicted among blacks MDRD (S/P/Bld) [Vol rate/Area]mL/min/1.73 o3Qjekrs >=59mL/min/1.73 m2[facility] Chem SGFR/1.73 sq M.predicted among non-blacks MDRD (S/P/Bld) [Vol rate/Area]59 mL/min/1.73 s2Gzslvw>=59mL/min/1.73 m2[facility] Chem S CHEMISTRYOrdered By: SYSTEM SYSTEM on 76-96-3345Matjkderys [Mass/Vol]1.2 mg/dL Normal0.5 - 1.3 mg/dLNORMAN REGIONAL HOSP[facility] RemisolGFR/1.73 sq M.predicted among blacks MDRD (S/P/Bld) [Vol rate/Area]mL/min/1.73 a2Ynwtqb>=59mL/min/1.73 m2[facility] Chem S GFR/1.73 sq M.predicted among non-blacks MDRD (S/P/Bld) [Vol rate/Area]59 mL/min/1.73 g2Imqqnz>=59mL/min/1.73 m2[facility] Chem SNM CARDIAC PERF STRESS/EXERCISE on 28-83-2949Cxgjqkvvw ClinicLarge Joint Arthro/Inj: R shoulder jointDayton Children'S Hospital Vital Signs Date TimeVital SignValuePerforming ZiuumpmqkWeaybawu71-47-7088 13:45-0400Body jcwzon392.8 cmAngeles Prince MD Work Phone: [facility]06-16-2025 13:45-0400Body mass index (BMI) [Ratio]26.26 kg/w6WddvrAngeles Prince MD Work Phone: [facility]06-16-2025 13:45-0400Body xbhaks48.01 kgAngeles Prince MD Work Phone: [facility]06-16-2025 13:45-0400Diastolic blood aqmtwpao36 mm[Hg]Angeles Prince MD Work Phone: [facility]06-16-2025 13:45-0400Heart rate61 /min Angeles Prince MD Work Phone: [facility]06-16-2025 13:45-0400Systolic blood buqnsgzy371 mm[Hg]Angeles Prince MD Work Phone: [facility]05-29-2025 11:18-0400Body khyvxr024.8 cmOnel Isaacs MD Work Phone: [facility]05-29-2025 11:18-0400 Body mass index (BMI) [Ratio]25.8 kg/c8UdwfdueOnel Isaacs MD Work Phone: [facility]05-29-2025 11:18-0400 Body nxktar73.64 kgOnel Isaacs MD Work Phone: [facility]04-30-2025 12:01-0400 Diastolic blood ckawdkra58 mm[Hg]Abeba [place] CARDIOVASCULAR TECHNICIAN.THERAPEUTIC ACTIVITIES SERVICES WORKER Work Phone: [facility]04-30-2025 12:01-0400Systolic blood tqpxaxzc800 mm[Hg]Abeba Keen CARDIOVASCULAR TECHNICIAN.THERAPEUTIC ACTIVITIES SERVICES WORKER Work Phone: [phone]04-30-2025 10:51-0400Body .8 Ochoa Keen CARDIOVASCULAR TECHNICIAN.THERAPEUTIC ACTIVITIES SERVICES WORKER Work Phone: [facility]04-30-2025 10:51-0400Body mass index (BMI) [Ratio]25.86 kg/m2Abeba Keen CARDIOVASCULAR TECHNICIAN.THERAPEUTIC ACTIVITIES SERVICES WORKER Work Phone: [facility]04-30-2025 10:51-0400Body atqcgw62.74 kgAbeba Keen CARDIOVASCULAR TECHNICIAN.THERAPEUTIC ACTIVITIES SERVICES WORKER Work Phone: [facility]04-30-2025 10:51-0400Heart rate61 /min Abeba Keen CARDIOVASCULAR TECHNICIAN.THERAPEUTIC ACTIVITIES SERVICES WORKER Work Phone: [phone]01-07-2025 10:25-0500Body .8 Kenanrin [place] CARDIOVASCULAR TECHNICIAN.THERAPEUTIC ACTIVITIES SERVICES WORKER Work Phone: [phone]01-07-2025 10:25-0500Body mass index (BMI) [Ratio]26.54 kg/m2Abeba [place] CARDIOVASCULAR TECHNICIAN.THERAPEUTIC ACTIVITIES SERVICES WORKER Work Phone: [phone]01-07-2025 10:25-0500Body olvaac81.92 kgAbeba Keen CARDIOVASCULAR TECHNICIAN.THERAPEUTIC ACTIVITIES SERVICES WORKER Work Phone: [facility]01-07-2025 10:25-0500Diastolic blood gjdkltsy69 mm[Hg]Abebaapril Keen CARDIOVASCULAR TECHNICIAN.THERAPEUTIC ACTIVITIES SERVICES WORKER Work Phone: [facility]01-07-2025 10:25-0500Heart rate70 /min Abebaapril Keen CARDIOVASCULAR TECHNICIAN.THERAPEUTIC ACTIVITIES SERVICES WORKER Work Phone: [facility]01-07-2025 10:25-6890TbP5% (BldA) [Mass fraction]95 %Abebaapril Keen CARDIOVASCULAR TECHNICIAN.THERAPEUTIC ACTIVITIES SERVICES WORKER Work Phone: [facility]01-07-2025 10:25-0500Systolic blood emozscsr355 mm[Hg]Abeba Keen CARDIOVASCULAR TECHNICIAN.THERAPEUTIC ACTIVITIES SERVICES WORKER Work Phone: [facility]09-20-2024 14:11-0400Blood Pressure LocationMichael NILL [phone]-[facility]glldSt. [facility] [place] 08-14-2024 14:11-0400Diastolic blood mm[Hg]Sarah NILL [phone]-IbogcSt. Mary'S [facility] [place] 08-14-2024 14:11-0400Heart rate76 /minMichael NILL [phone]-DlmkfSt. [facility]'S [facility] [place] 08-14-2024 14:11-0400Respiratory rate16 /minMichael NILL [phone]-HjwdnSt. [facility] [place] 08-14-2024 14:11-0400Systolic blood gniqdfwi837 mm[Hg]Sarah NILL [phone]-CabtmOhiohealth [facility] [place] 02-11-2024 09:35-0400Body qrrjzi89.5 kgAbeba Keen CARDIOVASCULAR TECHNICIAN.THERAPEUTIC ACTIVITIES SERVICES WORKER Work Phone: [facility]03-19-2024 09:35-0400Diastolic blood aotdqoen94 mm[Hg]Abeba Osmani CARDIOVASCULAR TECHNICIAN.THERAPEUTIC ACTIVITIES SERVICES WORKER Work Phone: [facility]03-19-2024 09:35-0400Heart rate60 /min Abeba Osmani CARDIOVASCULAR TECHNICIAN.THERAPEUTIC ACTIVITIES SERVICES WORKER Work Phone: [facility]03-19-2024 09:35-0400Systolic blood extnxfdg832 mm[Hg]Abeba Osmani CARDIOVASCULAR TECHNICIAN.THERAPEUTIC ACTIVITIES SERVICES WORKER Work Phone: [phone]09-19-2023 11:50-0400Diastolic blood zdvqbssy23 mm[Hg]Abeba Osmani CARDIOVASCULAR TECHNICIAN.THERAPEUTIC ACTIVITIES SERVICES WORKER Work Phone: [phone]09-19-2023 11:50-0400Systolic blood yuuonulq964 mm[Hg]Abeba [place] CARDIOVASCULAR TECHNICIAN.[facility] Work Phone: [phone]09-19-2023 11:39-0400Body .87 kgErin [place] CARDIOVASCULAR TECHNICIAN.THERAPEUTIC ACTIVITIES SERVICES WORKER Work Phone: [phone]09-19-2023 11:39-0400Heart rate60 /min Abeba [place] CARDIOVASCULAR TECHNICIAN.[facility] Work Phone: [facility]08-14-2023 10:21-0400Body qogheb930.8 Meg Villa MD Work Phone: [facility]08-14-2023 10:21-0400Body zfmuvp56.1 kgPrabhakar Villa MD Work Phone: [facility]03-17-2023 10:54-0400Body palslu093.8 cmCardiac Clinic Work Phone: [facility]03-17-2023 10:54-0400Body khyxfc82.46 kgCardiac Clinic Work Phone: [facility]03-17-2023 10:54-0400Diastolic blood tlcasntp52 mm[Hg]Cardiac Clinic Work Phone: [facility]03-17-2023 10:54-0400Heart rate66 /min [facility] Work Phone: [phone] [address]-17-2023 10:54-0400Systolic blood dgkdlihf951 mm[Hg]Cardiac Clinic Work Phone: [phone] [address]-15-2023 16:08-0400Body hpxylp053.8 Levi Mckinney MD Work Phone: [phone] Health SystemChpazk03-11-5504 16:08-0400Body .46 kgJuan F Mckinney MD Work Phone: [phone] [address]-15-2023 16:08-0400Diastolic blood fnerfhcm64 mm[Hg]Juan F Mckinney MD Work Phone: [phone] [address]-15-2023 16:08-0400Heart rate70 /min Juan F Mckinney MD Work Phone: [phone] Health SystemOlvivz71-94-0972 16:08-0400Systolic blood mdkkwban095 mm[Hg]Juan F Mckinney MD Work Phone: [phone] Health SystemUmucfz57-54-7365 13:33-0500Diastolic blood rquixguf97 mm[Hg]Abeba Osmani CARDIOVASCULAR TECHNICIAN.THERAPEUTIC ACTIVITIES SERVICES WORKER Work Phone: [phone]02-17-2023 13:33-0500Systolic blood vnbnnwyt400 mm[Hg]Abeba [place] CARDIOVASCULAR TECHNICIAN.THERAPEUTIC ACTIVITIES SERVICES WORKER Work Phone: [phone]02-17-2023 13:23-0500Body .01 kgErin Osmani CARDIOVASCULAR TECHNICIAN.THERAPEUTIC ACTIVITIES SERVICES WORKER Work Phone: [phone] [address]-17-2023 13:23-0500Heart rate78 /min Abeba [place] CARDIOVASCULAR TECHNICIAN.THERAPEUTIC ACTIVITIES SERVICES WORKER Work Phone: [phone]09-21-2022 11:02-0400Body orqmit924.8 Levi Mckinney MD Work Phone: [phone] Health SystemVgautn45-23-2201 11:02-0400Body dkoryu93.56 kgJuan F Mckinney MD Work Phone: cAvita Health SystemZnhfkb38-21-5724 11:02-0400Diastolic blood omlsnzrf17 mm[Hg]Juan F Mckinney MD Work Phone: cAvita Health SystemGoiafk17-85-2419 11:02-0400Heart rate65 /min Juan F Mckinney MD Work Phone: cAvita Health SystemCzgurr81-76-0489 11:02-0400Systolic blood atlzgrov640 mm[Hg]Juan F Mckinney MD Work Phone: cAvita Health SystemFmvzsp99-61-1686 11:25-0400Diastolic blood sdodvuvo93 mm[Hg]Tyler SALAM [facility]03-28-2022 11:25-0400Heart rate47 /minMaher SALAM [facility]03-28-2022 11:25-0400 Respiratory rate18 /minMaher SALAM [facility]03-28-2022 11:25-5742ExG7% (BldA) [Mass fraction]99 %Tyler SALAM [facility]03-28-2022 11:25-0400 Systolic blood tfyhcfhp135 mm[Hg]Tyler SALAM [facility]03-28-2022 11:15-0400 Diastolic blood ezbvhuqs67 mm[Hg]Tyler SALAM [facility]03-28-2022 11:15-0400Heart rate46 /minMaher SALAM [facility]03-28-2022 11:15-0400 Respiratory rate15 /minMaher SALAM [facility]03-28-2022 11:15-2464DhZ6% (BldA) [Mass fraction]98 %Tyler SALAM [address] [place], [place] 3156003-28-2022 11:15-0400 Systolic blood dljgvkxu458 mm[Hg]Tyleraleksandar ARNOLDAM [address] [place], [place] 3156003-28-2022 11:00-0400 Diastolic blood xlrphsmo00 mm[Hg]Tyler SALAM [address] [place], [place] 3156003-28-2022 11:00-0400Heart rate51 /minVaher SALAM [address] [place], [place] 3156003-28-2022 11:00-0400 Respiratory rate20 /minMaher SALAM [address] [place], [place] 3156003-28-2022 11:00-3776NpX2% (BldA) [Mass fraction]97 %Tyler SALAM [address] [place], [place] 3156003-28-2022 11:00-0400 Systolic blood gdigkymx915 mm[Hg]Tyler SALAM [address] [place], [place] 3156003-28-2022 10:46-0400Body ultgwcvrwfm97.16 [degF][facility] SALAM [address] [place], [place] 3156003-28-2022 10:14-0400Blood Pressure LocationMaholy cross hospital SALAM [address] [place], [place] 3156003-28-2022 10:14-0400Body bpdiwdzkmxn68.06 [degF][facility] [address] [place] [address] Encounters Encounter DateEncounter TypeCare ProviderFacilityStart: 06-17-2025 End: 58-46-4642Ckkdrsrsl encounterAngeles Prince MD Work Phone: Plastic SurgeryStart: 05-12-2025 End: 44-94-8535juierqwjkfUucwi A BaileyFacility:[facility]tart: 05-12-2025 End: 23-88-1297Bvgtizqjwa Mary Morrell DO-Physical Therapy [place] Start: 05-10-2025 End: 37-14-6794Zkcqnjm encounter procedureAngeles Prince MD Work Phone: Plastic SurgeryComment on above:Brow ptosis, bilateral (Primary Dx); Dermatochalasis of both upper eyelidsStart: 05-10-2025 End: 10-17-1167wnuxutbgaxFJPXSOvidio PRINCEFacility:[facility] Start: 05-06-2025 End: 98-56-7190wvxguxjaxgNqnsp A BaileyFacility:[facility]tart: 04-22-2025 End: 89-54-2259maykjxdwdwEopltmq M Hoy MD Work Phone: [facility] Work Phone: Start: 04-22-2025 End: 32-74-5196Xnyjbtr encounter procedureOnel Isaacs MD Work Phone: [facility] Work Phone: Start: 04-22-2025 End: 00-39-5375Yjjrfgt encounter procedureOnel Isaacs MD Work Phone: [facility] Start: 04-22-2025 End: 00-12-7404kinutqoyusKhiheis M Hoy MD Work Phone: [facility] Work Phone: Start: 04-12-2025 End: 51-39-0376CotexyZmlhgwouq Gambino APRN.CNP Work Phone: Preventive CardiologyComment on above:Refill Request Start: 04-05-2025 End: 50-95-8318hjqpuhwibuSmu ProviderOrthopaedicsComment on above:xrayStart: 04-05-2025 End: 90-17-3805Z-mail encounter from caregiverCcf ProviderOrthopaedicsStart: 03-24-2025 End: 48-57-1677cfusidtkmkWMASOZP M HOYFacility:[facility]tart: 03-24-2025 End: 29-67-6612Qourieu encounter Norah Keen APRN.CNP Work Phone: Preventive CardiologyComment on above:Essential hypertension (Primary Dx); Hyperlipidemia, unspecified hyperlipidemia type; S/P AVRStart: 03-24-2025 End: 48-58-2227yfwfqfarzjTAAHAghenjke:[facility] Hospitaltart: 01-25-2025 End: 97-98-6893tuzkrypfpuTRBBDF R KUBITZNot AvailableStart: 01-25-2025 End: 81-24-9191Olxhsd flowsheetEugene R Kubitz DPM Work Phone: noMS SWS PODIATRYStart: 01-25-2025 End: 26-82-2957Yllwpv flowsheetEugene R Kubitz DPM Work Phone: noms SWS PODIATRYStart: 01-05-2025 End: 07-50-5603AdpgycBkbtDaren Keen APRN.CNP Work Phone: Preventive CardiologyComment on above:Refill Request Start: 12-28-2024 End: 79-84-1963Shvwarpnb encounterSarah Huitron OD Work Phone: OphthalmologyComment on above:OrdersStart: 12-28-2024 End: 05-05-1149xnpzmljpamUYKR KEARNSFacility:[facility]tart: 12-28-2024 End: 55-82-0460Jdewzqh encounter procedureAngeles Prince MD Work Phone: Plastic SurgeryComment on above:Brow ptosis, bilateral (Primary Dx); Abnormal finding of blood chemistry, unspecified; Encounter for therapeutic drug level monitoring; Abnormal coagulation profile; Encounter for screening for human immunodeficiency virus (HIV)Start: 12-28-2024 End: 73-47-6875tzsptyxlbdTSWLHGwen PRINCEFacility:[facility] Start: 12-22-2024 End: 59-60-1676jnvadashosOMYLSWQ R PARKERFacility:[facility] Start: 12-22-2024 End: 90-85-8766Sntmria encounter procedureMichael R Tomy OD Work Phone: OphthalmologyComment on above:Dry eye (Primary Dx); Meibomian gland dysfunction (MGD) of upper and lower lids of both eyes; Dermatochalasis of both upper eyelids; PseudophakiaStart: 12-08-2024 End: 26-74-5653Bztfl abstractingAngeles Prince MD Work Phone: Plastic SurgeryComment on above:PHOTOS TAKENStart: 12-08-2024 End: 11-43-4452Jcptxsqme encounterBacas Prince MD Work Phone: Plastic SurgeryComment on above:Patient QuestionStart: 12-08-2024 End: 72-62-6420dqffhjekfoBVZXB BASSIRI GHARBFacility:[facility] Start: 12-01-2024 End: 77-41-9531gbwwatnqjlFIRZYRC M HOYFacility:[facility]tart: 12-01-2024 End: 83-27-4083cyfzzcwretFZRMAFT M HOYFacility:[facility]tart: 12-01-2024 End: 29-89-2278Cjstbaq encounter Nroah Keen APRN.CNP Work Phone: Preventive CardiologyComment on above:Essential hypertension (Primary Dx); Hyperlipidemia, unspecified hyperlipidemia type; S/P AVRStart: 08-14-2024 End: 18-70-7244djqpnixvreYwbcrjj R NILLFacility: Ronnatart: 08-14-2024 End: 30-60-3991Qpebjmn encounter procedureMichael R NILL [phone]-HvsxzOhiohealth [facility] [place] Start: 20-33-6806pnnqlqeonsHcfdxhz NILLFacility: GladysevueStart: 20-60-1704Oxnzybqbq encounterAbeba Keen APRN.THERAPEUTIC ACTIVITIES SERVICES WORKER Work Phone: Preventive CardiologyComment on above:Patient Question Start: 02-11-2024 End: 98-50-8723Ypmccjf encounter Norah Keen APRN.THERAPEUTIC ACTIVITIES SERVICES WORKER Work Phone: Preventive CardiologyComment on above:Hyperlipidemia, unspecified hyperlipidemia type (Primary Dx); Essential hypertension; S/P AVRStart: 54-51-2228JvdcomVmik Laffin MD Work Phone: Preventive CardiologyComment on above:Refill Request Start: 34-63-7828DjsgiyAieh Laffin MD Work Phone: Preventive CardiologyComment on above:Refill Request Start: 08-13-2023 End: 33-48-2884Tdlvpvb encounter Norah Keen APRN.THERAPEUTIC ACTIVITIES SERVICES WORKER Work Phone: Preventive CardiologyComment on above:Hyperlipidemia, unspecified hyperlipidemia type (Primary Dx); Essential hypertension; S/P AVRStart: 02-04-0949RnfrrpItrebcnap Gambino APRN.THERAPEUTIC ACTIVITIES SERVICES WORKER Work Phone: Preventive CardiologyComment on above:Refill Request Start: 07-08-2023 End: 33-79-7800Elxszil encounter procedurePrabhakar Villa MD Work Phone: OrthopaedicsComment on above:S/P right rotator cuff repair (Primary Dx); Traumatic complete tear of right rotator cuff, initial encounterStart: 32-36-7319Kjiummcfm encounterJuan F Mckinney MD Work Phone: Preventive CardiologyComment on above:Medication QuestionStart: 03-28-2023 End: 45-92-2610Dqsoyks encounter procedureOnel Isaacs [facility] Start: 02-53-7978Rcclwlzis encounterJuan F Mckinney MD Work Phone: Preventive CardiologyComment on above:Patient Question (Any additional testing?)Start: 02-08-2023 End: 02-10-3856Loemjjp encounter procedureHannah Taylor APRN.THERAPEUTIC ACTIVITIES SERVICES WORKER Work Phone: Preventive CardiologyComment on above:S/P AVR (Primary Dx); Exercise counseling; Chest discomfort; ELLIS (dyspnea on exertion); Essential (primary) hypertension ; Hyperlipidemia, unspecified hyperlipidemia type; Paroxysmal atrial fibrillation (HCC); S/P ascending aortic replacement; Lightheadedness; Physical deconditioning; Need for home exercise program; Difficulty managing exercise regime; Cardiac risk counselingStart: 49-67-6730Owvdwt Solomon Mckinney MD Work Phone: Preventive CardiologyComment on above:Elevated serum creatinine (Primary Dx)Start: 02-06-2023 End: 25-41-9433Sorhven encounter Ivone Mckinney MD Work Phone: Preventive CardiologyComment on above:Physical deconditioning (Primary Dx); Elevated serum creatinine; S/P AVRStart: 01-11-2023 End: 69-74-4094Hbmppmo encounter Norah Keen APRN.CNP Work Phone: Preventive CardiologyComment on above:S/P AVR (Primary Dx); Essential hypertension; Chest discomfortStart: 01-11-2023 End: 49-61-0956Etchvbquob hospital visit by physicianCard InjectionMolecular ImagingComment on above:Chest pain, unspecified type [R07.9]Start: 01-08-2023 Orders Solomon Mckinney MD Work Phone: cardiologyComment on above:Chest pain, unspecified type (Primary Dx)Start: 93-96-8722CzquttYin Nunn MD Work Phone: Preventive CardiologyComment on above:Chest pain, unspecified type (Primary Dx)Start: 01-07-2023 End: 48-47-3759Zvskqbl encounter Magdalena Isaacs [facility] Start: 79-31-7585Hbhcslmpr encounterHvi Thoracic Surg ConsultThoracic ClinicComment on above:Consult (Self referring); Received Outside Medical RecordsStart: 74-56-9829Nssbrzyjq encounterOnle Isaacs MD Work Phone: NOCComment on above:AppointmentStart: 77-06-8318Zkkwfb Juan F Mckinney MD Work Phone: Preventive CardiologyComment on above:Refill Request Start: 58-08-8938AljgyxRoiEvelyn Gee APRN.THERAPEUTIC ACTIVITIES SERVICES WORKER Work Phone: Preventive CardiologyComment on above:Refill Request Start: 08-15-2022 End: 34-46-6691Zbpjwth encounter procedureJuan F Mckinney MD Work Phone: Preventive CardiologyComment on above:S/P AVR (Primary Dx); Essential (primary) hypertensionStart: 40-61-7666Krhktssvp encounterJuan F Mckinney MD Work Phone: Preventive CardiologyComment on above:Lab Orders (Get labs done?)Start: 05-18-2022 End: 88-19-1082Yoqmfwj encounter Magdalena Isaacs [facility] Start: 04-11-2022 End: 45-95-6851Kpvenwhpfz hospital visit by physicianCard InjectionMolecular ImagingComment on above:Precordial pain [R07.2]Start: 35-54-6400Wnwbit Only Todd Nunn MD Work Phone: CardiologyComment on above:Precordial pain (Primary Dx)Start: 24-02-0018AyndsgYgnuhofqiAlexia Taylor APRN.THERAPEUTIC ACTIVITIES SERVICES WORKER Work Phone: Preventive CardiologyComment on above:Refill Request Start: 02-19-2022 End: 25-07-4068Vahphsm encounter Maricruz ADDISON [facility] Start: 08-11-2018 End: 87-88-5590Qytfgmu encounter Marco Keen APRN.THERAPEUTIC ACTIVITIES SERVICES WORKER Work Phone: [facility] Work Phone: Procedures DateProcedureProcedure DetailPerforming ClinicianStart: 18-66-6789Krjzx X-ray of right shoulderOnel Isaacs MD Work Phone: Start: 20-00-3447Ggkkh X-ray of right hipDougrhett Isaacs MD Work Phone: Start: 47-94-9993Eiatsdh of repair of musculotendinous cuff of shoulderS/P right rotator cuff repairPrabhakar Villa MD Work Phone: Start: 15-66-7472Daijkpqamdermu aspir&/inj major jt/bursa w/o usVajuhi Villa MD Work Phone: Start: 05-11-1525Gz strs tst xers&/or rx cont ecg trcg onlyChrismarie Taylor APRN.THERAPEUTIC ACTIVITIES SERVICES WORKER Work Phone: Start: 60-07-7452Tgytiwbrep spect multiple studies Todd Nunn MD Work Phone: Start: 63-85-5573Zuzsrxacvs spect multiple studies Todd Nunn MD Work Phone: Start: 05-46-7395MiwfgkhrxtdUbift SALAM Comment on above:2 colon polyps, diverticulosis t/o colon, moderate IHStart: 81-32-6935DijuynjeeeoprxzyzkeabtjxvkOojsljf NILL Start: 48-55-2954Cycnd depression screening assessment Hannah Taylor APRN.THERAPEUTIC ACTIVITIES SERVICES WORKER Work Phone: Start: 80-31-9122PwdyetopcojXjfda SALAM Start: 88-87-2398AcdrjkvinsbzxlesaieibwuyfpXjqhpyt NILL Start: 25-99-3526VcnlnhmirjaltuchwsphrkhssoMlqboou NILL Start: 28-52-2304ZqnwblyqmmljxubaxffgkelyuoRbjqfsq NILL Start: 53-41-1079aafgp arthritis, rightMaher SALAM Start: 56-54-6140EehvjgpthrvkfXidvm SALAM Aortic valve structure (body structure)Onel Hoy Cataract extraction and insertion of intraocular lens Tyler SALAM Comment on above:BILATERALcholecystecomy/umbilical hernia surgery 3Maher SALAM Comment on above:2006left rotator cuff repair 11-26-13 Tyler SALAM ParotidectomyMichael NILL right hand/wrist surgeryMaher SALAM right knee surgeryMaher SALAM right rotator cuff repairMaher SALAM sinus surgeryMaher SALAM Plan of Treatment DateCare ActivityDetailAuthorStart: 16-61-8210Gfpbv microalbumin profile [facility]ert[facility]: 39-81-2959Sbiyw microalbumin profileDayton Children'S Hospital Start: 23-23-6168Kwklnmid ScreeningDiabetes ScreeningOhioHealth Nelsonville Health Centertart: 53-45-2011Hnemoikv ScreeningDiabetes ScreeningOhioHealth Nelsonville Health Centertart: 08-10-2027 LIPID SCREENLIPID SCREENOhioHealth Nelsonville Health Centertart: 05-81-2476Vzzjdqka Screening Diabetes ScreeningOhioHealth Nelsonville Health Centertart: 29-01-0529QIPEX SCREENLIPID SCREEN [facility]art: 24-78-9384VFHOYPBC SCREENDIABETES SCREENDayton Children'S Hospital Start: 48-75-8473Rkmbervn ScreeningDiabetes ScreeningOhioHealth Nelsonville Health Centertart: 90-24-7826CL Controlled (<130/80)BP Controlled (<130/80)[facility]: 20-67-1772TRHUISWK SCREENDIABETES SCREENOhioHealth Nelsonville Health Centertart: 10-13-2025 End: 76-35-4173Cbspnoj encounter /19/2025 11:15 AM EST Office Visit [facility] [address] [place] [address] Santiago Gonzalez MD [address] [place], [place] [id number] New ConsultWomens CardiovascularComment on above:New Consult Start: 10-13-2025 End: 75-84-7193srlqrujpaw45/19/2025 10:45 AM EST Procedure Cardiology [address] [place] [address] Chest pain, unspecified type [R07.9]CardiologyComment on above:Chest pain, unspecified type [R07.9]Start: 33-39-2760PTVUYUFJ SCREENDIABETES SCREENViola ClinicStart: 07-26-2025 Influenza vaccinationInfluenza Vaccine (#1)[facility]: 05-14-2025 Covid-19 Vaccine ( season)Covid-19 Vaccine ( season) [facility]: 37-56-6416Wdqjz X-ray of right shoulderXR shoulder RT min 2V*[facility]: 09-60-3433PV Shoulder - right Views [facility]tart: 23-17-4627Tzefy X-ray of right hipXR hip RT min 2V(w/wo pelvis)*[facility]: 05-48-2362QH Hip - right 2 ViewsOhioHealth Grady Memorial Hospitaltart: 59-73-9707Mlutkjivec hospital visit by gqwnvfuax35/18/2025 Hospital Encounter [facility] [address] [address] Angeles Decker MD [address] [place], [place] [id number] Brow ptosis, 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], Dermatochalasis of both upper eyelids [H02.831, H02.834]Surgery CenterComment on above:Brow ptosis, 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], Dermatochalasis of both upper eyelids [H02.831, H02.834]Start: 04-09-2025 End: 05-61-0480Bkmxsxc encounter pvhgvlekp33/16/2025 9:30 AM EDT Office Visit Orthopaedics [address] [address] Yann Richardson MD [address] [place] [address] Shoulder consultOrthopaedicsComment on above:Shoulder consultStart: 03-24-2025 End: 50-46-1534Xzwqjjb encounter rnfjdfiyg82/30/2025 11:00 AM EDT Office Visit Preventive Cardiology [address] [place] [address] Abeba Keen APRN.THERAPEUTIC ACTIVITIES SERVICES WORKER [address] [place] [address] 3 month follow upPreventive CardiologyComment on above:3 month follow upStart: 20-97-1923Gzxolseseh hospital visit by oxhdanedp62/23/2025 Hospital Encounter [facility] [address] [address] Angeles Decker MD [address] [place] [address] Brow ptosis, 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], Dermatochalasis of both upper eyelids [H02.831, H02.834]Surgery CenterComment on above:Brow ptosis, 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], Dermatochalasis of both upper eyelids [H02.831, H02.834]Start: 12-28-2024 End: 15-98-9501Haonxyqqkrmyq metabolic 2000 panel - Serum or PlasmaC[facility] Work Phone: Comment on above:Expected: 12/28/2024 (Approximate), Expires: 12/28/2025Start: 12-28-2024 End: 21-62-2086Mkwzxrcmvw A1c in BloodDayton Children'S HospitalComment on above:Expected: 12/28/2024 (Approximate), Expires: 12/28/2025Start: 12-28-2024 End: 65-30-2134DYP ACUTE PANEL/RNADayton Children'S HospitalComment on above:Expected: 12/28/2024 (Approximate), Expires: 12/28/2025Start: 12-28-2024 End: 26-67-4222TMVOMBAQ/COTININEDayton Children'S HospitalComment on above:Expected: 12/28/2024 (Approximate), Expires: 12/28/2025Start: 12-28-2024 End: 31-45-4019BNJ METABOLITE, SERUM,QUANTITATIVEDayton Children'S HospitalComment on above:Expected: 12/28/2024, Expires: 03/29/2025Start: 12-28-2024 End: 64-46-3046Mlzmapz encounter eyynbpuup37/03/2025 11:15 AM EST Office Visit Plastic Surgery [address] [address] Angeles Decker MD [address] [place] [address] discuss surgeryPlastic SurgeryComment on above:discuss surgeryStart: 12-08-2024 End: 06-67-6350Dhwbkav encounter /14/2025 11:00 AM EST Office Visit Plastic Surgery [address] [address] Angeles Decker MD [address] [place], [place] [id number] consult for blepharloplasty and eyebrowPlastic SurgeryComment on above:consult for blepharloplasty and eyebrowStart: 12-01-2024 End: 45-53-2081Dyfftmp aminotransferase [Enzymatic activity/volume] in Serum or PlasmaALANINE AMINOTRANSFERASE / SGPT Lab Routine Essential hypertension Hyperlipidemia, unspecified hyperlipidemia type S/P AVR Expected: 12/01/2024, Expires: 03/02/2025[facility] ClinicComment on above:Expected: 12/01/2024, Expires: 03/02/2025Start: 12-01-2024 End: 19-56-5645Qoear metabolic 2000 panel - Serum or PlasmaBASIC METABOLIC PANEL Lab Routine Essential hypertension Hyperlipidemia, unspecified hyperlipidemia type S/P AVR Expected: 12/01/2024, Expires: 03/02/2025[facility] ClinicComment on above:Expected: 12/01/2024, Expires: 03/02/2025Start: 12-01-2024 End: 54-24-1382Xdutm 1996 panel - Serum or PlasmaLIPID PANEL BASIC Lab Routine Essential hypertension Hyperlipidemia, unspecified hyperlipidemia type S/P AVR Expected: 12/01/2024, Expires: 03/02/2025[facility] Work Phone: Comment on above:Expected: 12/01/2024, Expires: 03/02/2025Start: 37-56-8123Wzpdatg Directive DiscussionAdvance Directive DiscussionOhioHealth Nelsonville Health Centertart: 08-19-2024 End: 13-96-0661Qdfznbr encounter maicnyoqf19/25/2024 11:00 AM EDT Office Visit Preventive Cardiology [address] [place] [address] Abeba Keen, CARDIOVASCULAR TECHNICIAN.THERAPEUTIC ACTIVITIES SERVICES WORKER [address] [place] [address] 6 month f/u per ptPreventive CardiologyComment on above:6 month f/u per ptStart: 07-72-5599Tmexaeiqf vaccinationInfluenza Vaccine (#1) [facility]: 17-18-5020TMNJSKCQ SCREENDIABETES SCREENDayton Children'S Hospital Start: 01-24-2024 End: 95-35-1176Hikzvml aminotransferase [Enzymatic activity/volume] in Serum or PlasmaALT/SGPT Lab Routine Hyperlipidemia, unspecified hyperlipidemia type Essential hypertension Expected: 01/24/2024, Expires: 03/25/2024[facility] Work Phone: Comment on above:Expected: 01/24/2024, Expires: 03/25/2024Start: 01-24-2024 End: 96-69-0120Ssbxc metabolic 2000 panel - Serum or PlasmaBASIC METABOLIC PNL Lab Routine Hyperlipidemia, unspecified hyperlipidemia type Essential hypertensi on Expected: 01/24/2024, Expires: 03/25/2024[facility] Work Phone: Comment on above:Expected: 01/24/2024, Expires: 03/25/2024Start: 01-24-2024 End: 03-70-7030Yijba 1996 panel - Serum or PlasmaLIPID PANEL BASIC Lab Routine Hyperlipidemia, unspecified hyperlipidemia type Essential hypertension Expected: 01/24/2024, Expires: 03/25/2024[facility] Work Phone: Comment on above:Expected: 01/24/2024, Expires: 03/25/2024Start: 12-02-2233GV CONTROLLED (<130/80)BP CONTROLLED (<130/80) [facility]: 30-22-9900Zdzmx-19 Vaccine ()Covid-19 Vaccine ()[facility]: 88-12-5005Vjpmfzg Directive DiscussionAdvance Directive DiscussionCleWyandot Memorial Hospitaltart: 11-25-2023 Behavioral Health ScreeningBehavioral Health ScreeningOhioHealth Nelsonville Health Centertart: 74-65-9843Pngoyvvrlj AssessmentDepression AssessmentCleWyandot Memorial Hospitaltart: 49-64-0043XW CONTROLLED (<130/80)BP CONTROLLED (<130/80)[facility]: 93-19-1952Adltd-19 Vaccine ()Covid-19 Vaccine ()[facility]: 05-65-8587Rzaxaheyv vaccinationDayton Children'S Hospital Start: 03-13-2023 End: 46-54-6111Faqmojajqfzwf metabolic 2000 panel - Serum or PlasmaCOMP METABOLIC PANEL Lab Routine Hyperlipidemia, unspecified hyperlipidemia type Expected: 03/13/2023, Expires: 05/13/2023[facility] Work Phone: Comment on above:Expected: 03/13/2023, Expires: 05/13/2023Start: 03-13-2023 End: 93-70-2779Fgiyy 1995 panel - Serum or PlasmaLIPID PANEL BASIC Lab Routine Hyperlipidemia, unspecified hyperlipidemia type Expected: 03/13/2023,Expires: 05/13/2023[facility] Work Phone: Comment on above:Expected: 03/13/2023, Expires: 05/13/2023Start: 02-21-2023 End: 32-68-8931Ynhcy metabolic 1999 panel - Serum or PlasmaBASIC METABOLIC PNL Lab Routine Elevated serum creatinine Expected: 02/21/2023, Expires: 04/23/2023 [facility] Work Phone: comment on above:Expected: 02/21/2023, Expires: 04/23/2023Start: 02-12-2023 End: 77-96-9299Lpfgqsnpdjjsf metabolic 1999 panel - Serum or PlasmaCOMP METABOLIC PANEL Lab Routine S/P AVR Expected: 02/12/2023, Expires: 04/14/2023 [facility] Work Phone: comment on above:Expected: 02/12/2023, Expires: 04/14/2023Start: 02-12-2023 End: 11-91-0677Upyuk 1995 panel - Serum or PlasmaLIPID PANEL BASIC Lab Routine S/P AVR Essential (primary) hypertension Expected: 02/12/2023, Expires: 04/14/2023[facility] Work Phone: comment on above:Expected: 02/12/2023, Expires: 04/14/2023Start: 93-28-2830DE CONTROLLED (<130/80)BP CONTROLLED (<130/80) [facility]: 85-86-0876UNHXTQF DIRECTIVE DISCUSSIONADVANCE DIRECTIVE DISCUSSIONOhioHealth Nelsonville Health Centertart: 93-85-0149KNUQVZFRRL ASSESSMENTDEPRESSION ASSESSMENTOhioHealth Nelsonville Health Centertart: 84-88-0962Iumyoxdim vaccinationINFLUENZA (#1) [facility]: 84-85-5875TLESR-19 VACCINE (5 - Booster for Pfizer series)COVID-19 VACCINE (5 - Booster for Pfizer series)[facility]: 04-11-2022 End: 62-85-9408EU CARDIAC PERF STRESS/EXERCISENM CARDIAC PERF STRESS/EXERCISE Radiology Routine Precordial pain Expected: 04/11/2022, Expires: 04/26/2023 [facility] Work Phone: Comment on above:Expected: 04/11/2022, Expires: 04/26/2023Start: 16-90-9066CMKNRAD DIRECTIVE DISCUSSIONADVANCE DIRECTIVE DISCUSSIONOhioHealth Nelsonville Health Centertart: 67-17-5901YICCIUEYWE ASSESSMENTDEPRESSION ASSESSMENTOhioHealth Nelsonville Health Centertart: 82-98-1922JUQRPMEV VACCINE (2 of 2)SHINGRIX VACCINE (2 of 2)[facility]: 58-44-2502Kbwsubctjmmy Vaccine: 65+ (2 - PPSV23 or PCV20)Pneumococcal Vaccine: 65+ (2 - PPSV23 or PCV20)[facility] Start: 51-85-6977JWFCSSDQASIS: 65+ (2 - PPSV23 if available, else PCV20) PNEUMOCOCCAL: 65+ (2 - PPSV23 if available, else PCV20)[facility]: 70-17-3726CNMAWPHZHYYW: 65+ (2 - PPSV23 or PCV20)PNEUMOCOCCAL: 65+ (2 - PPSV23 or PCV20)[facility]: 89-42-3761Wsfku depression screening assessment DEPRESSION SCREENINGOhioHealth Nelsonville Health Centertart: 10-01-2013Medicare Annual Wellness VisitMedicare Annual Wellness VisitOhioHealth Nelsonville Health Centertart: 95-08-6401JZIWYVWIA AGE 65 AND OVER WITH 5YR LOOKBACK (#1)PNEUMOVAX AGE 65 AND OVER WITH 5YR LOOKBACK (#1)[facility]: 89-97-4082RCTMWMRPV (FIT-DNA)COLOGUARD (FIT-DNA)[facility]: 13-87-1929KwuttjfusqeVDASCIQTDEQRgmovsvii Clinic Start: 89-92-2814XJHAEEGMOV CANCER SCREENINGCOLORECTAL CANCER SCREENINGOhioHealth Nelson[facility] Health Centertart: 27-81-1503JQ COLONOGRAPHYCT COLONOGRAPHYOhioHealth Nelsonville Health Centertart: 78-17-0719UUKGL OCCULT BLOODFECAL OCCULT BLOODOhioHealth Nelsonville Health Centertart: 1990 SIGMOIDOSCOPYSIGMOIDOSCOPYOhioHealth Nelsonville Health Centertart: 36-55-7317VJYKPV PCP TEAM CHRONIC DISEASE VISITANNUAL PCP TEAM CHRONIC DISEASE VISITMary Rutan Hospitalrt: 53-88-7058Bplxwrk ScreeningAnxiety ScreeningMary Rutan Hospitalrt: 49-25-6077PP CONTROLLED (<130/80)BP CONTROLLED (<130/80)[facility] Hospitalrt: 1963 Depression ScreeningDepression ScreeningMary Rutan Hospitalrt: 1963 HEPATITIS C SCREENINGHEPATITIS C SCREENINGOhioHealth Nelsonville Health Centertart: 1963 Hepatitis C screeningHepatitis C ScreeningDayton Children'S HospitalBlepharoplasty upper eyelidBLEPHAROPLASTY UPPER BILATERAL Brow ptosis, bilateral Dermatochalasis of both upper eyelidsMC [facility] P14Qnjztnfhkurjxp upper eyelidBLEPHAROPLASTY UPPER BILATERAL Brow ptosis, bilateral Dermatochalasis of both upper eyelidCleveland Clinic Foundation End: 63-69-1550JBG COMPLETEECG COMPLETE ECG Routine Chest pain, unspecified type 1 Occurrences starting 01/08/[address] [place] [address] Work Phone: comment on above:1 Occurrences starting 01/08/2023 until 01/08/2024 End: 02-27-7621KdfyhdznwhfgkwwjUTVL Cardiology Routine S/P AVR 1 Occurrences starting 08/15/[address] [place] [address] Work Phone: comment on above:1 Occurrences starting 08/15/2022 until 08/15/2023 End: 90-24-9869MloooggbkknpynfzCFFL Cardiology Routine S/P ascending aortic replacement Nonrheumatic aortic valve insufficiency 1 Occurrences starting 03/13/[address] [place] [address] Work Phone: Comment on above:1 Occurrences starting 03/13/2023 until 03/13/2024NM CARDIAC PERF STRESS/PHARMNM CARDIAC PERF STRESS/PHARM Radiology Routine Chest pain, unspecified type Ordered: 01/08/2023[facility] Work Phone: Comment on above:Ordered: 01/08/2023Rhytidectomy glabellar frown linesBROWLIFT Brow ptosis, bilateral Dermatochalasis of both upper eyelidsMC [facility] A87Bevuprzmurmi glabellar frown linesBROWLIFT Brow ptosis, bilateral Dermatochalasis of both upper eyelidCleveland Clinic [facility] Immunizations Immunization DateImmunizationNotesCare LbzcitlyOgbylazq47-77-1439qvusiiybr virus vaccine, unspecified formulationAngeles Prince MD Work Phone: [facility] HospitalZomvgi36-04-2732mldsmhiip virus vaccine, unspecified formulationAbeba Keen APRN.CNP Work Phone: [facility]S HospitalOqnwck87-00-6975bezpsxsda virus vaccine, unspecified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 Informed Consent Consent Obtained: Verbal Trinity Protocol A moment to CARE was completed. [...] Shoulder and Elbow Surgeon Orthopaedic Surgery Department [place], [place] [address] Tell: [phone] Appt:[phone] 07/08/2023 10:14 AM CC: documented in this encounterDayton Children'S Hospital07-11-2023 Miscellaneous Notes* Telephone Encounter - Bekah Murphy - 06/04/2023 12:31 PM EDT June 04, 2023 Patient Contact Number: [phone] Patient last seen within the last year: Yes Date of last office visit: 02/08/2023 Reason For Call: Medication Issue/Question:Patient calling to ask if it okay to stop Asprin 5 days prior to MRI with injection scheduled for 06/09 Physician: Juan F Mckinney MD Patient was informed that non-urgent calls may be returned within the next three business days. Yes Bekah Murphy documented in this encounterDayton Children'S Hospital04-19-2023 Miscellaneous Notes* Telephone Encounter - Roselyn Aden - 03/13/2023 3:36 PM EDT I called spoke with patient, and informed orders for labs and echo are now in chart so can scheduleto have done. Roselyn * Telephone Encounter - Clarisse Gee APRN.CNP - 03/13/2023 1:08 PM EDT Orders for labs and echo placed Clarisse Gee APRN.CNP * Telephone Encounter - Roselyn Aden - 03/12/2023 4:56 PM EDT March 12, 2023 Patient Contact Number: [phone] Patient last seen within the last year: Yes Last office visit: 02-08-23 with Marie Laimendoza Damon appt: 08-13-23 with Abeba Keen Reason For Call: Other Issue: testing or orders? Patient called asking about testing needed because only has labs ordered. Thought was supposed to get something in addition. Asking so can schedule Physician: Juan F Mckinney MD Patient was informed that non-urgent calls may be returned within the next three business days. Yes Roselyn Aden documented in this encounterDayton Children'S Hospital03-17-2023 Instructions* Patient Instructions* Jamarcus Watts, Wire Stripper - 02/08/2023 2:15 PM EDT Images from [...] you will be able to consistently exercise karthikeyan regular basis. Controlling this factor (along with [...] outside the ones listed below): *Smart Watch (OneView Commerce, Voodle - Memories in Motion, Fitwall, etc); *POLAR chest strap (model: H10 with any POLAR wrist watch, such as the POLAR UNITE); *Garmin chest strap (model: HRM-Pro Plus with any Garmin watch, such as the VIVOSMART 5); *[employer]o 5 or 7 sport watch *Commercial heart [...] days in succession (for example, more than 3)in a given week(s), upon resuming your exercise training it would be reasonable to briefly dial back the HR zone intensity and session duration in order to more appropriately re-introduce physical stress to your body. *For example, for 1 week, decrease the HR zone you had been previously working at prior to the timeaway by at least 5 bpm from both the lower and upper end of the zone. Also decrease the duration ofyour training sessions by at least 5 min [...] resistance settings in order to achieve target HRzone, as needed) -Rating of perceived exertion (RPE) [...] days in succession (for example, more than 3)in a given week(s), upon resuming your exercise training it would be reasonable to briefly dial back the HR zone intensity and session duration in order to more appropriately re-introduce physical stress to your body. *For example, for 1 week, decrease the HR zone you had been previously working at prior to the timeaway by at least 5 bpm from both the lower and upper end of the zone. Also decrease the duration ofyour training sessions by at least 5 min or more. TRAINING BLOCK #2: Week 9-16 or longer (this is the minimum number of weeks. If necessary, make this training block aslong as you need): Mode: Stationary upright cycle [...] days in succession (for example, more than 3)in a given week(s), upon resuming your exercise training it would be reasonable to briefly dial back the HR zone intensity and session duration in order to more appropriately re-introduce physical stress to your body. *For example, for 1 week, decrease the HR zone you had been previously working at prior to the timeaway by at least 5 bpm from both the lower and upper end of the zone. Also decrease the duration ofyour training sessions by at least 5 min [...] days in succession (for example, more than 3)in a given week(s), upon resuming your exercise training it would be reasonable to briefly dial back the HR zone intensity and session duration in order to more appropriately re-introduce physical stress to your body. *For example, for 1 week, decrease the HR zone you had been previously working at prior to the timeaway by at least 5 bpm from both the lower and upper end of the zone. Also decrease the duration ofyour training sessions by at least 5 min [...] days in succession (for example, more than 3)in a given week(s), upon resuming your exercise training it would be reasonable to briefly dial back the HR zone intensity and session duration in order to more appropriately re-introduce physical stress to your body. *For example, for 1 week, decrease the HR zone you had been previously working at prior to the timeaway by at least 5 bpm from both the lower and upper end of the zone. Also decrease the duration ofyour training sessions by at least 5 min [...] days in succession (for example, more than 3)in a given week(s), upon resuming your exercise training it would be reasonable to briefly dial back the HR zone intensity and session duration in order to more appropriately re-introduce physical stress to your body. *For example, for 1 week, decrease the HR zone you had been previously working at prior to the timeaway by at least 5 bpm from both the lower and upper end of the zone. Also decrease the duration ofyour training sessions by at least 5 min or more. *Exercise cool-down period for exercise sessions*: DO NOT SKIP THE COOL DOWN PERIOD EVER. *Skipping the cool down will increase the likelihood you will experience an increase and persistence of symptoms following exercise. *Duration: 6-8 min (take longer time to cool-down as needed. This period should feel very easy, RPE= 6 to 8, refer to above 6-20 [...] improves orthostatic tolerance in healthy subjects. Circulation. 2002;106(22):8609-4074). Do not gulp or chug water. Slowly drink 8 ounces of water or sports drink 30 minutes before exercise (for example, low calorieoptions are Powerade zero, G2, propel fitness water, Vitamin Water, Nuun electrolyte tablets, Liquid IV, etc.). *Perform above activity as outlined and tolerated while staying within respective training zones. *Remember to include at least 6-8 minutes to warm up (RPE = 6-8; use above 6-20 scale) *Remember to include at least 6-8 minutes to cool down (RPE = 6-8; use above 6- 20 scale) *Remember to properly hydrate (drink water) [...] *Commercial brands include for example: *Smart Watch (OneView Commerce, Voodle - Memories in Motion, Fitwall, etc); *POLAR chest strap (model: H10 with any POLAR wrist watch, such as the POLAR UNITE); *Garmin chest strap (model: HRM-Pro Plus with any Garmin watch, such as the InStream Media 5); *K[employer]o 5 or 7 sport watch *Commercial heart [...] apps such as Map my Walk or Wishdates Pal or on paper). *Set a hard (upper) time limitation on how much time you will spend on each exercise session so that fitting/dedicating time for exercise does not become stressful and a burden. Evidence Based Guidelines: Hanssen H, Jen H, Dejesse A, et al. Personalized exercise prescription in the prevention andtreatment of arterial hypertension: a Consensus Document from the Association of Preventive Cardiology (EAPC) and the ESC [place]ling on Hypertension. Eur J Prev Cardiol. 2021;29(1):205-215. Fady M, Janet A, Chloe U, et al. Secondary prevention through comprehensive cardiovascular rehabilitation: From knowledge to implementation. 2020 update. A position paper from the Secondary Prevention and Rehabilitation Section of the Association of Preventive Cardiology. Journal of Preventive Cardiology. 2020;28(5):460-495. La POLO, Nito RP, Bernard RM, et al. The Physical Activity Guidelines for Americans. CARLOS ENRIQUE. 2018;320(19):3307-9012. General Weight Management Recommendations: *I recommend aiming to lose approximately 0.5 lb per week for the next 3 months in order to achievea body weight of 178 lbs. *Mediterranean style diet is recommended. Take our quiz to see how compliant you are with the Mediterranean style diet: [email or web address] *When eating carbohydrates, look for low glycemic index foods (<55). *For a detailed and individualized dietary plan, I recommend making a visit with the [facility] Registered Dieticians. FOLLOW UP *Continue routine follow up with your referring provider, Dr. Mckinney, for ongoing/additional discussions regarding other aspects of your heart care plan. *As needed, annual in-office visit to [facility]. This should includeexercise stress testing and updates to the exercise prescription. *As needed, Virtual Visit (Visit [email or web address]. Questions? Contact technical support at [phone]) in 6-8 months for follow up discussions regarding progress made with your exercise plan. *If you would like more information on cardiac rehabilitation, please visit our dedicated [facility] web-page aimed at providing evidence-based information on heart health at the following, [email or web address]. Thank you for your visit with us today in [facility] Cardiology [facility] Rehabilitation. Jamarcus Watts, PhD Director, Cardiac Rehabilitation Staff, Section of Preventive Cardiology & Rehabilitation [facility] [place] [facility] [address] [place] [address] Office: [phone] Appointment Desk: [phone] option #3 documented in this encounterDayton Children'S Hospital03-17-2023 History of Present illness Narrative* Hannah Taylor APRN.THERAPEUTIC ACTIVITIES SERVICES WORKER - 02/08/2023 10:45 AM EDT Images from the original note were not included. [facility] [place] [facility] Department of Cardiovascular Medicine SECTION [...] reaching for something and felt a sharp, rightsided chest pain. It is a needle like pain that comes and goes. Discomfort has since spread. He nowhas superficial point tenderness on his right side [...] Factor take 3 tablet once per day gm-uv-M-theanine-herb no.310 (AIRBORNE EVERYDAY STRESS AWAY) 1,000 mg-200 [...] tablet 60 minutes prior to procedure. omega 8-xuf-een-fish oil (FISH OIL) 900-1,400 mg cpDR Take [...] by mouth twice daily. Pt takes 2 chewablesby mouth twice per day. tn-un-qsgE-nugHs-Shp-Vgu-hc124 334-1.7 mg chew Take 1 tablet by [...] population = 50. Five points is a clinicallymeaningful difference.) 02/07/2023 01/09/2017 Physical T-Score 47.7 54.1 [...] [place] [address] [place]. Readiness for change:Preparation (intent to change [...] 74 - 99 mg/dL Final Comment: The [place] Diabetes Association (ADA) provides guidance for cutoff values for fasting glucose andrandom glucose. The ADA defines fasting as no [...] Standards of Medical Care in Diabetes 2016, [place] Diabetes Association. Diabetes Care. 2016.39(Suppl 1). TSH [...] you will be able to consistently exercise karthikeyan regular basis. Controlling this factor (along with [...] outside the ones listed below): *Smart Watch (OneView Commerce, Voodle - Memories in Motion, Fitwall, etc); *POLAR chest strap (model: H10 with any POLAR wrist watch, such as the POLAR UNITE); *Garmin chest strap (model: HRM-Pro Plus with any Garmin watch, such as the InStream Media 5); *[employer]o 5 or 7 sport watch *Commercial heart [...] days in succession (for example, more than 3)in a given week(s), upon resuming your exercise training it would be reasonable to briefly dial back the HR zone intensity and session duration in order to more appropriately re-introduce physical stress to your body. *For example, for 1 week, decrease the HR zone you had been previously working at prior to the timeaway by at least 5 bpm from both the lower and upper end of the zone. Also decrease the duration ofyour training sessions by at least 5 min [...] resistance settings in order to achieve target HRzone, as needed) -Rating of perceived exertion (RPE) [...] days in succession (for example, more than 3)in a given week(s), upon resuming your exercise training it would be reasonable to briefly dial back the HR zone intensity and session duration in order to more appropriately re-introduce physical stress to your body. *For example, for 1 week, decrease the HR zone you had been previously working at prior to the timeaway by at least 5 bpm from both the lower and upper end of the zone. Also decrease the duration ofyour training sessions by at least 5 min or more. TRAINING BLOCK #2: Week 9-16 or longer (this is the minimum number of weeks. If necessary, make this training block aslong as you need): Mode: Stationary upright cycle [...] days in succession (for example, more than 3)in a given week(s), upon resuming your exercise training it would be reasonable to briefly dial back the HR zone intensity and session duration in order to more appropriately re-introduce physical stress to your body. *For example, for 1 week, decrease the HR zone you had been previously working at prior to the timeaway by at least 5 bpm from both the lower and upper end of the zone. Also decrease the duration ofyour training sessions by at least 5 min [...] days in succession (for example, more than 3)in a given week(s), upon resuming your exercise training it would be reasonable to briefly dial back the HR zone intensity and session duration in order to more appropriately re-introduce physical stress to your body. *For example, for 1 week, decrease the HR zone you had been previously working at prior to the timeaway by at least 5 bpm from both the lower and upper end of the zone. Also decrease the duration ofyour training sessions by at least 5 min [...] days in succession (for example, more than 3)in a given week(s), upon resuming your exercise training it would be reasonable to briefly dial back the HR zone intensity and session duration in order to more appropriately re-introduce physical stress to your body. *For example, for 1 week, decrease the HR zone you had been previously working at prior to the timeaway by at least 5 bpm from both the lower and upper end of the zone. Also decrease the duration ofyour training sessions by at least 5 min [...] days in succession (for example, more than 3)in a given week(s), upon resuming your exercise training it would be reasonable to briefly dial back the HR zone intensity and session duration in order to more appropriately re-introduce physical stress to your body. *For example, for 1 week, decrease the HR zone you had been previously working at prior to the timeaway by at least 5 bpm from both the lower and upper end of the zone. Also decrease the duration ofyour training sessions by at least 5 min or more. *Exercise cool-down period for exercise sessions*: DO NOT SKIP THE COOL DOWN PERIOD EVER. *Skipping the cool down will increase the likelihood you will experience an increase and persistence of symptoms following exercise. *Duration: 6-8 min (take longer time to cool-down as needed. This period should feel very easy, RPE= 6 to 8, refer to above 6-20 [...] improves orthostatic tolerance in healthy subjects. Circulation. 2002;106(22):1894-8120). Do not gulp or chug water. Slowly drink 8 ounces of water or sports drink 30 minutes before exercise (for example, low calorieoptions are Powerade zero, G2, propel fitness water, Vitamin Water, Nuun electrolyte tablets, Liquid IV, etc.). *Perform above activity as outlined and tolerated while staying within respective training zones. *Remember to include at least 6-8 minutes to warm up (RPE = 6-8; use above 6-20 scale) *Remember to include at least 6-8 minutes to cool down (RPE = 6-8; use above 6- 20 scale) *Remember to properly hydrate (drink water) [...] *Commercial brands include for example: *Smart Watch (OneView Commerce, Voodle - Memories in Motion, Fitwall, etc); *POLAR chest strap (model: H10 with any POLAR wrist watch, such as the POLAR UNITE); *[employer] chest strap (model: HRM-Pro Plus with any [...] log for self-management (free apps such as g4interactive my Walk or Wishdates Pal or on paper). *Set a hard (upper) time limitation on how much time you will spend on each exercise session so that fitting/dedicating time for exercise does not become stressful and a burden. Evidence Based Guidelines: Toñosen H, Jen H, Silverio A, et al. Personalized exercise prescription in the prevention andtreatment of arterial hypertension: a Consensus Document from the Association of Preventive Cardiology (EAPC) and the ESC Grayling on Hypertension. Eur J Prev Cardiol. 2021;29(1):205-215. [...] Physical Activity Guidelines for Americans. CARLOS ENRIQUE. 2018;320(19):3421-1702. General Weight Management Recommendations: *I recommend aiming to lose approximately 0.5 lb per week for the next 3 months in order to achievea body weight of 178 lbs. *Mediterranean style diet is recommended. Take our quiz to see how compliant you are with the Mediterranean style diet: [email or web address]-grg-uojfcz-k-fjtijvltqmyee-uvov/ *When eating carbohydrates, look for low glycemic [...] old male who was referred by Dr. Mckinney for exercise counseling due to ELLIS, chest [...] instructed on monitoring his target heart rate rangeand to use the RPE scale to guide intensity/progression of exercise. Above exercise guidelines were developed based on Wally Barrow's graded exercise test results, patient interests and goals, and comorbidities. Wally Barrow agrees to begin the exercise prescriptionas outlined in the chart note. Risks, benefits and alternative options were discussed and a copy ofthe exercise prescription was provided to Wally Barrow. FOLLOW UP *Continue routine follow up with your referring provider, Dr. Mckinney, for ongoing/additional discussions regarding other aspects of your heart care plan. *As needed, annual in-office visit to Preventive Cardiology and Rehabilitation. This should includeexercise stress testing and updates to the exercise prescription. *As needed, Virtual Visit (Visit [email or web address]. Questions? Contact technical support at [phone]) in 6-8 months for follow up discussions regarding progress made with your exercise plan. *If you would like more information on cardiac rehabilitation, please visit our dedicated [facility] web-page aimed at providing evidence-based information on heart health at the following, [email or web address]. Thank you for your visit with us today in Preventive Cardiology and Rehabilitation. Jamarcus Wtats, PhD Chief Complaint: Patient presents with: Exercise Prescription PHYSICAL EXAM: BP 132/84 Pulse 66 Ht 177.8 cm (5' 10 ) Wt 83.5 kg (184 lb) BMI 26.40 kg/m Heart sounds: S1/S2, RRR, no murmurs Lung sounds: CTA bilaterally. Carotids: +2 pulses bilaterally,no bruit. Extremities: No edema, +2 DP pulses ASSESSMENT: ok to proceed with stress test for exercise guidelines PLAN The results of this assessment were discussed with the patient. We have mutually agreed upon the following plans and goals: Exercise and lifestyle guidance as above per administration specialist. I have reviewed the documentation obtained and documented by the EP and have reviewed and updated the problem list as appropriate. I have personally performed a face to face assessment of the patientand have personally participated in the [place]a components. I have discussed the case and management of the patient's care. Hannah Taylor APRN.THERAPEUTIC ACTIVITIES SERVICES WORKER AMBULATORY PATIENT EDUCATION Topic: Exercise Instruction Provided To: Patient Discipline: EP Instructed By: Jamarcus Watts, PhD Motivation to Learn: Eager Family/SO Support: High Cognitive Ability: Alert/Oriented Learning Preference: Individual Instructions Barriers: None Diagnosis: Primary Prevention Lifestyle Changes: Exercise Understanding: Verbalize Understanding Follow up: Complete Methods of Instruction: Verbal instruction and/or handouts. documented in this encounterDayton Children'S Hospital03-15-2023 History of Present illness Narrative* Juan F Mckinney MD - 02/06/2023 4:15 PM EDT Images from the original note were not included. Heart, Vascular, and Thoracic [place] [facility] Department of Cardiovascular Medicine SECTION OF PREVENTIVE CARDIOLOGY Wally Pak Pushpa 02/05/2023 CHIEF COMPLAINT: Patient presents with: Follow [...] and Dr. Javier in EP in 06/12. Mostrecently in Preventive Cardiology in 07/09 by Clarisse Gee. Overall he is doing well. No acute complaints. He has been hesitant to take statins in the past but is amenable to doing so, if I recommend them. Blood pressure is well controlled. After 10/13 visit he did fine. Saw Clarisse Gee in clinic about 2months ago for sharp R sided chest pain. Had CT with PCP that did not reveal any bony abnormality. Not associated with exertion, atypical. TGs were elevated on last blood work, repeat pending today. His is having a TAVR here in 2 weeks. After 09/2020 visit saw Marie Taylor NP in follow-up in 01/24. Notes daily mild light-headedness that is not [...] Factor take 3 tablet once per day dg-bm-K-theanine-herb no.310 (AIRBORNE EVERYDAY STRESS AWAY) 1,000 mg-200 [...] tablet 60 minutes prior to procedure. omega 6-emb-hzr-fish oil (FISH OIL) 900-1,400 mg cpDR Take [...] by mouth twice daily. Pt takes 2 chewablesby mouth twice per day. iv contrast (will be provided with radiology test) CT Cardiac - No IV access, insert saline lock prior to the sedation, infusion, injection for imaging exam. Discontinue saline lock post exam. If Pt.has a central line or IVAD, may access for administration according to line specific nursing protocol. Once exam is complete flush line and de-access according to line specific nursing protocol in the CT contrast administration guidelines link. [id number]-cq-cwcU-eaiZg-Bux-Zhm-hc124 334-1.7 mg chew Take 1 tablet by [...] Factor take 3 tablet once per day sc-tp-R-theanine-herb no.310 (AIRBORNE EVERYDAY STRESS AWAY) 1,000 mg-200 [...] tablet 60 minutes prior to procedure. omega 1-phj-kod-fish oil (FISH OIL) 900-1,400 mg cpDR Take [...] by mouth twice daily. Pt takes 2 chewablesby mouth twice per day. iv contrast (will be provided with radiology test) CT Cardiac - No IV access, insert saline lock prior to the sedation, infusion, injection for imaging exam. Discontinue saline lock post exam. If Pt.has a central line or IVAD, may access for administration according to line specific nursing protocol. Once exam is complete flush line and de-access according to line specific nursing protocol in the CT contrast administration guidelines link. vk-oy-jvdI-qysGd-Joq-Yia-hc124 334-1.7 mg chew Take 1 tablet by [...] were rare (<1.0%), and no VE Triplets werepresent. Ventricular Bigeminy was present. (September 2018) SPECT [...] population = 50. Five points is a clinicallymeaningful difference.) 01/09/2017 Physical T-Score 54.1 Mental T-Score [...] coronary angiogram. Given he is 76 years ofage, limited data about starting a statin for [...] my office phone number, office fax number, [employer] instructions, and my work email address. Wally Barrow was strongly encouraged to use [employer] for communication if possible, but my email address was provided if needed. Juan F Mckinney MD AMBULATORY PATIENT EDUCATION Topic: Hyperlipidemia and Hypertension Instruction Provided To: Patient Barriers: None Motivation to Learn: Interested Methods of Instruction: Verbal instruction and/or handouts. Patient Leans Best By: Multiple Methods Patient Verbalized: Understanding documented in this encounterDayton Children'S Hospital02-17-2023 History of Present illness Narrative* Abeba Keen APRN.THERAPEUTIC ACTIVITIES SERVICES WORKER - 01/11/2023 1:18 PM EST Images from the original note were not included. Heart and Vascular [place] [facility] Department of Cardiovascular Medicine SECTION OF PREVENTIVE CARDIOLOGY 01/11/2023 Wally Barrow CURRENT MEDS: Current Outpatient Medications Medication Sig mt-mf-W-theanine-herb no.310 (AIRBORNE EVERYDAY STRESS AWAY) 1,000 mg-200 [...] tablet 60 minutes prior to procedure. omega 3-zgp-wdo-fish oil (FISH OIL) 900-1,400 mg cpDR Take [...] by mouth twice daily. Pt takes 2 chewablesby mouth twice per day. iv contrast (will be provided with radiology test) CT Cardiac - No IV access, insert saline lock prior to the sedation, infusion, injection for imaging exam. Discontinue saline lock post exam. If Pt.has a central line or IVAD, may access for administration according to line specific nursing protocol. Once exam is complete flush line and de-access according to line specific nursing protocol in the CT contrast administration guidelines link. jz-dj-bznD-myrTf-Nkw-Uue-hc124 334-1.7 mg chew Take 1 tablet by [...] something and felt a sharp, right sided chestpain. It is a needle like pain that [...] frequent. No concern for falling. It happens withsitting or walking. Metoprolol was reduced from 50 [...] appearing, alert, in no acute distress, and well- hydrated, well nourished Carotid Pulses: Left:2+, Right: 2+, [...] 74 - 99 mg/dL Final Comment: The [place] Diabetes Association (ADA) provides guidance for cutoff values for fasting glucose andrandom glucose. The ADA defines fasting as no [...] Standards of Medical Care in Diabetes 2016, [place] Diabetes Association. Diabetes Care. 2016.39(Suppl 1). TSH [...] for Disease Control and Prevention and the [place] Heart Association. Circulation 2003;107:499-511. Creatinine Date Value [...] population = 50. Five points is a clinicallymeaningful difference.) 01/09/2017 Physical T-Score 54.1 Mental T-Score [...] He occasionally has twinges on the left side.Symptoms are non-exertional. Superficial tenderness now occurs more throughout his right upper chest. Pt saw his PCP who ordered CT Chest with Contrast and pharmacologic stress test. Both studies were unremarkable. PLAN: -Will review with Dr. Mckinney. Hyperlipidemia: LDL goal <100, no CAD on cath. Component Latest Ref Rng & Units 05/24/2021 08/10/2022 Cholesterol, Total <200 mg/dL 137 157 Triglyceride <150 mg/dL 65 126 HDL Cholesterol >39 mg/dL 43 39 (L) LDL Cholesterol <100 mg/dL 81 93 PLAN: -Continue diet control. There is limited data in starting a statin for a primary prevention patient>75 years with LDL<100 Anti-platelet / Anti-coagulant: on aspirin 81mg daily Hypertension: Normal BP < 130/80. Well controlled. Metoprolol was decreased at last visit due to dizziness. No significant change in symptoms. Date: BP: 01/11/2023 110/64 08/15/2022 114/72 02/05/2022 108/60 04/12/2021 108/76 Plan: - continue HCTZ, Irbesartan, metoprolol Exercise/Weight/Nutrition: Active with housework, reaching 10,000 steps per day. Diet not discusseddue to time constraints. History of post-op atrial fibrillation: Previously seen by Dr. Concepcion. No recurrence. Not on anticoagulation. Physicians and [...] patient. Abeba Keen APRN.CNP documented in this encounterDayton Children'S Hospital02-17-2023 History of Present illness Narrative* Jo Wynne RN - 01/11/2023 8:30 AM EST RADIOLOGY SERVICE PROGRESS NOTE SERVICE DATE: 01/11/2023 SERVICE TIME: 10:18 AM PATIENT IDENTITY VERIFICATION COMPLETED USING TWO (2) STANDARD IDENTIFIERS: Name and Date of confirmed by patient verbally and Name and Date of confirmed by identification band PATIENT GENDER DATA: male ALLERGIES: Reviewed and unchanged MEDICATIONS REVIEWED BY: Wire Stripper PROCEDURE TYPE: NM STRESS: 0.4 mg of [...] information regarding radiation safety can be found usingthis link: [email or web address] SIGNATURE: Jo Wynne RN PATIENT NAME: Wally Barrow DATE: January 11, 2023 TIME: 10:18 AM PAGER/CONTACT #: [id number] documented in this encounterDayton Children'S Hospital02-07-2023 Miscellaneous Notes* Telephone Encounter - Maryann Torres RN - 01/01/2023 10:37 AM EST Images from the original note were not [...] distinct coronary calcifications. Office Notes/Consults 08/15/22 Dr Mckinney 1) status post AVR Status post AVR [...] coronary angiogram. Given he is 76 years ofage, limited data about starting a statin for [...] under a cabinet back in 2019 and felta pop he states he has this all since intermittent with arm stretching and touching the sore spot. pt to have PCP contact us if needed Maryann Torres, RN * Telephone Encounter - Laurence Segura Adm - 12/28/2022 3:29 PM EST Received PowerFile Staff Message from external referring pool/ [facility] Wally Barrow is being referred to Unspecified [...] office for scheduling. Please call pt at [phone]. Patient was informed consultation could be at [place] or [facility] [place]: No Patient Registration: Registration complete/updated: yes Insurance card(s) scanned in [facility] with in the past year: No Pt's [employer] is active. Ok to communicate to pt via [employer] yes Medical Records: Records in [facility] (internal [facility] records): No Imaging in [facility] (internal [facility] records): No Care Everywhere - [...] to: No Laurence Christie documented in this encounterDayton Children'S Hospital02-02-2023 Miscellaneous Notes* Telephone Encounter - Rosa Martino - 12/27/2022 3:05 PM EST Reason for call: Mr Barrow called and he would like to schedule an appointment with a thoracic surgeon as soon as possible Home and cell number [phone] Diagnosis right side muscle pain Kind Regards Rosa documented in this encounterDayton Children'S Hospital12-19-2022 Miscellaneous Notes* Telephone Encounter - Indira Mio Pss - 11/12/2022 10:27 AM EST Call from patient requesting refill. Requested Prescriptions Pending Prescriptions Disp Refills hydroCHLOROthiazide (HYDRODIURIL, ESIDRIX) 25 mg tablet 90 tablet 3 Sig: Take 1 tablet by mouth once daily. Patient last seen 08/16 Indirawinsome Lieberman Pss documented in this encounterDayton Children'S Hospital11-21-2022 Miscellaneous Notes* Telephone Encounter - Joyce Berg APRN.CNP - 10/15/2022 4:09 PM EST The following approved medication requests have been transmitted electronically. Requested Prescriptions Signed Prescriptions Disp Refills irbesartan (AVAPRO) 300 mg tablet 90 tablet 2 Sig: Take 1 tablet by mouth daily at bedtime. Authorizing Provider: JOYCE BERG APRN.CNP * Telephone Encounter - Bekah Murphy - 10/11/2022 3:48 PM EST Call from patient requesting refill. Requested Prescriptions Pending Prescriptions Disp Refills irbesartan (AVAPRO) 300 mg tablet 90 tablet 3 Sig: Take 1 tablet by mouth daily at bedtime. Patient last seen 07/2022 Bekah Murphy documented in this encounterDayton Children'S Hospital09-21-2022 History of Present illness Narrative* Juan F Mckinney MD - 08/15/2022 11:25 AM EDT Images from the original note were not included. Heart, Vascular, and Thoracic [place] [facility] [facility] Department of Cardiovascular Medicine SECTION [...] and Dr. Javier in EP in 06/12. Mostrecently in Preventive Cardiology in 07/09 by Clarisse Gee. Overall he is doing well. No acute complaints. He has been hesitant to take statins in the past but is amenable to doing so, if I recommend them. Blood pressure is well controlled. After 10/13 visit he did fine. Saw Clarisse Gee in clinic about 2months ago for sharp R sided chest pain. Had CT with PCP that did not reveal any bony abnormality. Not associated with exertion, atypical. TGs were elevated on last blood work, repeat pending today. His is having a TAVR here in 2 weeks. After 09/2020 visit saw Ezekiel Taylor NP in follow-up in 02/13. Notes daily mild light-headedness thatis not positional, does not change with exertion. [...] 1 tablet by mouth once daily. omega 3-xjh-pyp-fish oil (FISH OIL) 900-1,400 mg cpDR Take [...] by mouth twice daily. Pt takes 2 chewablesby mouth twice per day. elderberry fruit (ELDERBERRY ORAL) Take 1 teaspoonful by mouth once daily. iv contrast (will be provided with radiology test) CT Cardiac - No IV access, insert saline lock prior to the sedation, infusion, injection for imaging exam. Discontinue saline lock post exam. If Pt.has a central line or IVAD, may access for administration according to line specific nursing protocol. Once exam is complete flush line and de-access according to line specific nursing protocol in the CT contrast administration guidelines link. by-qt-konZ-uijIu-[id number] 334-1.7 mg chew Take 1 tablet by [...] 1 tablet by mouth once daily. omega 3-hml-qin-fish oil (FISH OIL) 900-1,400 mg cpDR Take [...] by mouth twice daily. Pt takes 2 chewablesby mouth twice per day. elderberry fruit (ELDERBERRY ORAL) Take 1 teaspoonful by mouth once daily. iv contrast (will be provided with radiology test) CT Cardiac - No IV access, insert saline lock prior to the sedation, infusion, injection for imaging exam. Discontinue saline lock post exam. If Pt.has a central line or IVAD, may access for administration according to line specific nursing protocol. Once exam is complete flush line and de-access according to line specific nursing protocol in the CT contrast administration guidelines link. yr-df-vfwZ-ultDf-Gzk-Raa-hc124 334-1.7 mg chew Take 1 tablet by [...] AV delay , iLBBB), (performed on 06/01/19), whichI independently visualized. Most Recent TTE: (CONCLUSIONS: - [...] were rare (<1.0%), and no VE Triplets werepresent. Ventricular Bigeminy was present. (September 2018) LABS: [...] population = 50. Five points is a clinicallymeaningful difference.) 01/09/2017 Physical T-Score 54.1 Mental T-Score [...] coronary angiogram. Given he is 76 years ofage, limited data about starting a statin for [...] my office phone number, office fax number, [employer] instructions, and my work email address. Wally Barrow was strongly encouraged to use [employer] for communication if possible, but my email address was provided if needed. Juan F Mckinney MD AMBULATORY PATIENT EDUCATION Topic: Hyperlipidemia and Hypertension Instruction Provided To: Patient Barriers: None Motivation to Learn: Interested Methods of Instruction: Verbal instruction and/or handouts. Patient Leans Best By: Multiple Methods Patient Verbalized: Understanding documented in this encounterDayton Children'S Hospital09-16-2022 Miscellaneous Notes* Telephone Encounter - Roselyn Keiko - 08/10/2022 1:49 PM EDT August 10, 2022 Patient Contact Number: [phone] Patient last seen within the last year: Yes Date of last office visit: 02-05-22 with Marie Taylor Reason For Call: Other Issue: at local lab right now with . Wants to know if any labs should get done for his upcoming appointment this Saturday on Marie Claudia put in lab order and informed patient. Physician: Juan F Mckinney MD Patient was informed that non-urgent calls may be returned within the next three business days. Yes Roselyn Keiko documented in this encounterDayton Children'S Hospital05-18-2022 History of Present illness Narrative* Dimitrios Biggs, RT(R) - 04/11/2022 9:00 AM EDT RADIOLOGY SERVICE PROGRESS NOTE SERVICE DATE: 04/11/2022 [...] POST EXAM PIV STATUS: Discontinued PROCEDURE TYPE: MD Stress: 13.0mCi Op62b-Kctjmtl was administered IV for Rest Imaging at 0905. 32 mCi Fh99x-Daawfpu was administered IV for Stress Imaging at 1018 by LUZ RazaR) . PATIENT DISCHARGED TO: Ambulatory patient, left [place] department area. A Diagnostic radioactive procedure has taken place, with no further precautions necessary other than routine body substance precautions. More information regarding radiation safety can be found usingthis link: [email or web address]%20Medicine%20Procedures.[email or web address] SIGNATURE: RT Althea(R) PATIENT NAME: Wally Pak Pushpa DATE: April 11, 2022 TIME: 9:10 AM PAGER/CONTACT #: documented in this encounterDayton Children'S Hospital04-26-2022 Miscellaneous Notes* Telephone Encounter - Navya Lentz Pss - 03/20/2022 3:42 PM EDT Call from patient requesting refill. Patient is scheduled for dental work on 03/28/22. Pending Prescriptions Disp Refills AZITHROMYCIN 500 MG TABLET 1 tablet 0 Sig: Take 1 tablet by mouth once daily. Take one tablet 60 minutes prior to procedure. DU: No Patient last seen January 2022 Navya Zavala documented in this encounterDayton Children'S Hospital04-15-2022 Evaluation + Plan note Future Scheduled Tests Laboratory* Fecal WBC Lactoferrin 03/09/22 * Giardia lamblia, Direct Detection EIA 03/09/22 * O & P Exam, Routine 03/09/22 * Clostridium difficile by PCR 03/09/22 * Enteric Panel by PCR 03/09/22 [facility]03-28-2022 Hospital Discharge instructions Patient Education 02/19/2022 11:09:09 Colonoscopy, Care After Surgery [place] (CUSTOM) Colonoscopy Care After Surgery Please read the instructions outlined below and refer to this sheet in the next few weeks. These discharge instructions provide you with general information on [facility] Your [facility] may also give you specific [...] Heavy or fried foods are harder to digestand may make you feel nauseated (sick to [...] 08/07/2005 Document Revised: 02/26/2019 Document Reviewed: 02/26/2019 [employer] Patient Education 2020 [employer]. 02/19/2022 11:09:09 Diverticulosis MAGR (CUSTOM) Diverticulosis Many [...] colon so that bowel contents can move througheasily. You should eat 20 to 35 grams [...] corn, and seeds. This has not been foundto be true. If you find that certain foods create cramping or bloating, avoid that food. Foods high in fiber include: Fresh fruits, fresh vegetables, legumes (beans), whole wheat bread, bran muffins or cereal, and nuts. See the table below for examples of high fiber foods. Remember, your goal is 20- 35 grams per day. Amount of fiber in different foods Food Serving Grams of fiber Fruits Apple (with skin) 1 medium apple 4.4 Banana 1 medium banana 3.1 Oranges 1 orange 3.1 Prunes 1 cup, pitted 12.4 Juices Apple, unsweetened, w/added ascorbic acid 1 cup 0.5 Grapefruit, white, canned, sweetened 1 cup 0.2 Grape, unsweetened, w/added ascorbic acid 1 cup 0.5 Glenn 1 cup 0.7 Vegetables Cooked Green beans 1 cup 4.0 Carrots 1/2 cup sliced 2.3 Peas 1 cup 8.8 Potato (baked, with skin) 1 medium potato 3.8 Raw [place] (with peel) 1 cucumber 1.5 Lettuce 1 [...] 8.7 Peanuts 1/2 cup 7.9 Chart from [facility] 2013. SEEK IMMEDIATE MEDICAL CARE IF: You [...] of Agriculture (USDA) National Nutrient Database at: http://www.nal.usda.gov/fnic/foodcomp/search/ Created using data from the USDA National Nutrient Database for Standard Reference. Available at http://www.nal.usda.gov/fnic/foodcomp/search/. Information adapted from: ExitCare Patient Information 2009 [employer]. [facility] 2012 [email or web address] Follow Up Care 02/07/2022 10:39:23 With:Jayson ADDISON Address: [facility] [address] [place] [address] Business (1) When: Unknown Comments:office will call for follow up [facility]09-21-2018 History of Past illness Narrative* ProblemNoted DateResolved DateVolume wffyiyba73 Overview: History: Post-op problem. Weight up as much as 7.2 kg Assessment: (+) 3.2 kg. On IV lasix. Plan: Replace electrolytes prn. Montior labs, I/O. Monitor daily weight. Continue fluid restriction. Mobilize. Swjyalzcgzt40 Overview: History: Post-op problem. Assessment: CXR 08/15 with sm effusions/bibasilar atelectasis. Plan: Mobilize now that on tele. Encourage PEP, cough and deep breathing. Pain control. Large RT penumothorax. Overview: History: Post-op problem. Developed near complete right pneumothorax 08/13 Assessment: CXR with resolved pneumo. On RA. Right pigtail removed 08.18.2018 without incident. Plan: Post-pull repeat CXR ipending. Continue RADIO OPERATOR GROUND for pain related to catheter. Acute post-operative pain Overview: History: post OHS Assessment: pain is well controlled with current regimen. Pt. requests RADIO OPERATOR GROUND continue. Does have itching when takes Oxycodone, but states all pain meds causes this for him (no rash noted) Plan: Continue current regimen with lidoderm patches, Tylenol, Oxycodone/Tramadol, and RADIO OPERATOR GROUND. Add Benadryl. Bowel regimen in place. Cardiac ycnidekavpwze38 Overview: Normal biventricular function pre/post. On epinephrine from OR. Weaned to off. Mentating well. UO marginal (fluids administered) CVP wnl. ScvO2 71 LA wnl Postoperative kebsijtdnzq30 Overview: A/P: MAP 74 mmHg with goal 65-75 mmHg. On levophed. Wean able Stress xplzgvoikqjxo94 Overview: SSI On mechanically assisted bozxanezgda75 Overview: A/P Intubated and sedate from OR. WTE. Secondary pmzrrhnstbvqyhbp63 Overview: History: post-op problem. Plt count trended as low as 68k 08/14. Assessment: Improving to 77k. Plan: Continue ASA, SQ Heparin as tolerating with no further decline in plt count. Preop hierudi15 Overview: [facility] PRE[facility] [...] TIME of SERVICE: 5:09 PM Ascending aortic slttkbpu49/21/2018Dilated aortic root08/15/2018documented as of this encounter (statuses as of 03/23/2022) [facility]09-21-2018 History of Past illness Narrative* ProblemNoted Date Resolved DateVolume msiesxvw90 Overview: History: Post-op problem. Weight up as much as 7.2 kg Assessment: (+) 3.2 kg. On IV lasix. Plan: Replace electrolytes prn. Montior labs, I/O. Monitor daily weight. Continue fluid restriction. Mobilize. Mhkftubhduq17 Overview: History: Post-op problem. Assessment: CXR 08/15 with sm effusions/bibasilar atelectasis. Plan: Mobilize now that on tele. Encourage PEP, cough and deep breathing. Pain control. Large RT penumothorax. Overview: History: Post-op problem. Developed near complete right pneumothorax 08/13 Assessment: CXR with resolved pneumo. On RA. Right pigtail removed 08.18.2018 without incident. Plan: Post-pull repeat CXR ipending. Continue RADIO OPERATOR GROUND for pain related to catheter. Acute post-operative pain Overview: History: post OHS Assessment: pain is well controlled with current regimen. Pt. requests RADIO OPERATOR GROUND continue. Does have itching when takes Oxycodone, but states all pain meds causes this for him (no rash noted) Plan: Continue current regimen with lidoderm patches, Tylenol, Oxycodone/Tramadol, and RADIO OPERATOR GROUND. Add Benadryl. Bowel regimen in place. Cardiac wbazfukrelehg50 Overview: Normal biventricular function pre/post. On epinephrine from OR. Weaned to off. Mentating well. UO marginal (fluids administered) CVP wnl. ScvO2 71 LA wnl Postoperative tjupudlnbfe13 Overview: A/P: MAP 74 mmHg with goal 65-75 mmHg. On levophed. Wean able Stress cvkdswvbebkbe46 Overview: SSI On mechanically assisted fovxaisxbmk12 Overview: A/P Intubated and sedate from OR. WTE. Secondary dmvvsukfkzvsjcyu03 Overview: History: post-op problem. Plt count trended as low as 68k 08/14. Assessment: Improving to 77k. Plan: Continue ASA, SQ Heparin as tolerating with no further decline in plt count. Preop iaxyzmr37 Overview: [facility] PRE-[facility] CHECK[facility] [...] TIME of SERVICE: 5:09 PM Ascending aortic kdczmcva83/21/2018Dilated aortic root08/15/2018documented as of this encounter (statuses as of 03/28/2022) [facility]09-21-2018 History of Past illness Narrative* ProblemNoted Date Resolved DateVolume wjvzqemx98 Overview: History: Post-op problem. Weight up as much as 7.2 kg Assessment: (+) 3.2 kg. On IV lasix. Plan: Replace electrolytes prn. Montior labs, I/O. Monitor daily weight. Continue fluid restriction. Mobilize. Blfaztjhadv51 Overview: History: Post-op problem. Assessment: CXR 08/15 with sm effusions/bibasilar atelectasis. Plan: Mobilize now that on tele. Encourage PEP, cough and deep breathing. Pain control. Large RT penumothorax. Overview: History: Post-op problem. Developed near complete right pneumothorax 08/13 Assessment: CXR with resolved pneumo. On RA. Right pigtail removed 08.18.2018 without incident. Plan: Post-pull repeat CXR ipending. Continue RADIO OPERATOR GROUND for pain related to catheter. Acute post-operative pain Overview: History: post OHS Assessment: pain is well controlled with current regimen. Pt. requests RADIO OPERATOR GROUND continue. Does have itching when takes Oxycodone, but states all pain meds causes this for him (no rash noted) Plan: Continue current regimen with lidoderm patches, Tylenol, Oxycodone/Tramadol, and RADIO OPERATOR GROUND. Add Benadryl. Bowel regimen in place. Cardiac nskmfqbhiqaon71 Overview: Normal biventricular function pre/post. On epinephrine from OR. Weaned to off. Mentating well. UO marginal (fluids administered) CVP wnl. ScvO2 71 LA wnl Postoperative uvwwxckrkob43 Overview: A/P: MAP 74 mmHg with goal 65-75 mmHg. On levophed. Wean able Stress qiaoqkhpijfxe96 Overview: SSI On mechanically assisted moddrxdrycc31 Overview: A/P Intubated and sedate from OR. WTE. Secondary kiudqwkujncwwcwj48 Overview: History: post-op problem. Plt count trended as low as 68k 08/14. Assessment: Improving to 77k. Plan: Continue ASA, SQ Heparin as tolerating with no further decline in plt count. Preop cczoxhj63 Overview: [facility] PRE-[facility] CHECKLIST [...] Cardiac Surgical prep: N/A SIGNATURE: Belia Gardner APRN.THERAPEUTIC ACTIVITIES SERVICES WORKER CHECKED BY: DATE of SERVICE: 08/11/2018 TIME of SERVICE: 5:09 PM Ascending aortic vwkykcgb90/21/2018Dilated aortic root08/15/2018documented as of this encounter (statuses as of 04/12/2022) [facility]09-21-2018 History of Past illness Narrative* ProblemNoted Date Resolved DateVolume xoxbvklh16 Overview: History: Post-op problem. Weight up as much as 7.2 kg Assessment: (+) 3.2 kg. On IV lasix. Plan: Replace electrolytes prn. Montior labs, I/O. Monitor daily weight. Continue fluid restriction. Mobilize. Engquegnesr20 Overview: History: Post-op problem. Assessment: CXR 08/15 with sm effusions/bibasilar atelectasis. Plan: Mobilize now that on tele. Encourage PEP, cough and deep breathing. Pain control. Large RT penumothorax.08/13/ Overview: History: Post-op problem. Developed near complete right pneumothorax 08/13 Assessment: CXR with resolved pneumo. On RA. Right pigtail removed 08.18.2018 without incident. Plan: Post-pull repeat CXR ipending. Continue RADIO OPERATOR GROUND for pain related to catheter. Acute post-operative pain Overview: History: post OHS Assessment: pain is well controlled with current regimen. Pt. requests RADIO OPERATOR GROUND continue. Does have itching when takes Oxycodone, but states all pain meds causes this for him (no rash noted) Plan: Continue current regimen with lidoderm patches, Tylenol, Oxycodone/Tramadol, and RADIO OPERATOR GROUND. Add Benadryl. Bowel regimen in place. Cardiac xvdvyrujykqsk79 Overview: Normal biventricular function pre/post. On epinephrine from OR. Weaned to off. Mentating well. UO marginal (fluids administered) CVP wnl. ScvO2 71 LA wnl Postoperative evrqkccqkuu36 Overview: A/P: MAP 74 mmHg with goal 65-75 mmHg. On levophed. Wean able Stress teqapheywbura35 Overview: SSI On mechanically assisted dvrdhuyzatv06 Overview: A/P Intubated and sedate from OR. WTE. Secondary bzgdeqglxoriylci11 Overview: History: post-op problem. Plt count trended as low as 68k 08/14. Assessment: Improving to 77k. Plan: Continue ASA, SQ Heparin as tolerating with no further decline in plt count. Preop ltlsdow71 Overview: [facility] PRE-OP CHECKLIST [...] DM: No Cardiac Surgical prep: N/A SIGNATURE: Beila Gardner APRN.THERAPEUTIC ACTIVITIES SERVICES WORKER CHECKED BY: DATE of SERVICE: 08/11/2018 TIME of SERVICE: 5:09 PM Ascending aortic icpugxni07/21/2018Dilated aortic root08/15/2018documented as of this encounter (statuses as of 08/10/2022) [facility]09-21-2018 History of Past illness Narrative* ProblemNoted Date Resolved DateVolume naamnvas83 Overview: History: Post-op problem. Weight up as much as 7.2 kg Assessment: (+) 3.2 kg. On IV lasix. Plan: Replace electrolytes prn. Montior labs, I/O. Monitor daily weight. Continue fluid restriction. Mobilize. Pqoaewmitzi77 Overview: History: Post-op problem. Assessment: CXR 08/15 with sm effusions/bibasilar atelectasis. Plan: Mobilize now that on tele. Encourage PEP, cough and deep breathing. Pain control. Large RT penumothorax. Overview: History: Post-op problem. Developed near complete right pneumothorax 08/13 Assessment: CXR with resolved pneumo. On RA. Right pigtail removed 08.18.2018 without incident. Plan: Post-pull repeat CXR ipending. Continue RADIO OPERATOR GROUND for pain related to catheter. Acute post-operative pain Overview: History: post OHS Assessment: pain is well controlled with current regimen. Pt. requests RADIO OPERATOR GROUND continue. Does have itching when takes Oxycodone, but states all pain meds causes this for him (no rash noted) Plan: Continue current regimen with lidoderm patches, Tylenol, Oxycodone/Tramadol, and RADIO OPERATOR GROUND. Add Benadryl. Bowel regimen in place. Cardiac wihuuxpayvkqi17 Overview: Normal biventricular function pre/post. On epinephrine from OR. Weaned to off. Mentating well. UO marginal (fluids administered) CVP wnl. ScvO2 71 LA wnl Postoperative ugjkchvkrmv76 Overview: A/P: MAP 74 mmHg with goal 65-75 mmHg. On levophed. Wean able Stress qjdvdjjwmpyli95 Overview: SSI On mechanically assisted ryrpkfvsoap58 Overview: A/P Intubated and sedate from OR. WTE. Secondary yfnkrirzacxsjscq63 Overview: History: post-op problem. Plt count trended as low as 68k 08/14. Assessment: Improving to 77k. Plan: Continue ASA, SQ Heparin as tolerating with no further decline in plt count. Preop uodhumj60 Overview: [facility] PRE-OP CHECKLIST [...] TIME of SERVICE: 5:09 PM Ascending aortic zyasdmlg71/21/2018Dilated aortic root08/15/2018documented as of this encounter (statuses as of 08/15/2022) [facility]09-21-2018 History of Past illness Narrative* ProblemNoted Date Resolved DateVolume zmcwboau89 Overview: History: Post-op problem. Weight up as much as 7.2 kg Assessment: (+) 3.2 kg. On IV lasix. Plan: Replace electrolytes prn. Montior labs, I/O. Monitor daily weight. Continue fluid restriction. Mobilize. Unluewnvwkx18 Overview: History: Post-op problem. Assessment: CXR 08/15 with sm effusions/bibasilar atelectasis. Plan: Mobilize now that on tele. Encourage PEP, cough and deep breathing. Pain control. Large RT penumothorax. Overview: History: Post-op problem. Developed near complete right pneumothorax 08/13 Assessment: CXR with resolved pneumo. On RA. Right pigtail removed 08.18.2018 without incident. Plan: Post-pull repeat CXR ipending. Continue RADIO OPERATOR GROUND for pain related to catheter. Acute post-operative pain Overview: History: post OHS Assessment: pain is well controlled with current regimen. Pt. requests RADIO OPERATOR GROUND continue. Does have itching when takes Oxycodone, but states all pain meds causes this for him (no rash noted) Plan: Continue current regimen with lidoderm patches, Tylenol, Oxycodone/Tramadol, and RADIO OPERATOR GROUND. Add Benadryl. Bowel regimen in place. Cardiac vrrieasdhmsbu77 Overview: Normal biventricular function pre/post. On epinephrine from OR. Weaned to off. Mentating well. UO marginal (fluids administered) CVP wnl. ScvO2 71 LA wnl Postoperative ehfcregcqpm04 Overview: A/P: MAP 74 mmHg with goal 65-75 mmHg. On levophed. Wean able Stress muoafjiazvhsr05 Overview: SSI On mechanically assisted qvujbyjjmdg33 Overview: A/P Intubated and sedate from OR. WTE. Secondary Overview: History: post-op problem. Plt count trended as low as 68k 9/20. Assessment: Improving to 77k. Plan: Continue ASA, SQ Heparin as tolerating with no further decline in plt count. Preop ahtkrsv68 Overview: [facility] PRE-OP CHECKLIST [...] TIME of SERVICE: 5:09 PM Ascending aortic /21/2018Dilated aortic root08/15/2018documented as of this encounter (statuses as of 10/15/2022) [facility]09-21-2018 History of Past illness Narrative* ProblemNoted Date Resolved DateVolume cduanzrq74 Overview: History: Post-op problem. Weight up as much as 7.2 kg Assessment: (+) 3.2 kg. On IV lasix. Plan: Replace electrolytes prn. Montior labs, I/O. Monitor daily weight. Continue fluid restriction. Mobilize. Swuzbfblsiv27 Overview: History: Post-op problem. Assessment: CXR 08/15 with sm effusions/bibasilar atelectasis. Plan: Mobilize now that on tele. Encourage PEP, cough and deep breathing. Pain control. Large RT penumothorax. Overview: History: Post-op problem. Developed near complete right pneumothorax 08/13 Assessment: CXR with resolved pneumo. On RA. Right pigtail removed 08.18.2018 without incident. Plan: Post-pull repeat CXR ipending. Continue RADIO OPERATOR GROUND for pain related to catheter. Acute post-operative pain Overview: History: post OHS Assessment: pain is well controlled with current regimen. Pt. requests RADIO OPERATOR GROUND continue. Does have itching when takes Oxycodone, but states all pain meds causes this for him (no rash noted) Plan: Continue current regimen with lidoderm patches, Tylenol, Oxycodone/Tramadol, and RADIO OPERATOR GROUND. Add Benadryl. Bowel regimen in place. Cardiac gcbxnzcjsrqom58 Overview: Normal biventricular function pre/post. On epinephrine from OR. Weaned to off. Mentating well. UO marginal (fluids administered) CVP wnl. ScvO2 71 LA wnl Postoperative Overview: A/P: MAP 74 mmHg with goal 65-75 mmHg. On levophed. Wean able Stress ujhyqbgmxrmev21 Overview: SSI On mechanically assisted Overview: A/P Intubated and sedate from OR. WTE. Secondary xxgqzkxupwnkmhtl96 Overview: History: post-op problem. Plt count trended as low as 68k 08/14. Assessment: Improving to 77k. Plan: Continue ASA, SQ Heparin as tolerating with no further decline in plt count. Preop sqloogu53 Overview: [facility] PRE-OP CHECKLIST [...] Cardiac Surgical prep: N/A SIGNATURE: Belia Gardner APRN.THERAPEUTIC ACTIVITIES SERVICES WORKER CHECKED BY: DATE of SERVICE: 08/11/2018 TIME of SERVICE: 5:09 PM Ascending aortic fosjkvvr11/21/2018Dilated aortic root08/15/2018documented as of this encounter (statuses as of 11/12/2022) [facility]09-[facility]-2018 History of Past illness Narrative* ProblemNoted Date Resolved DateVolume Overview: History: Post-op problem. Weight up as much as 7.2 kg Assessment: (+) 3.2 kg. On IV lasix. Plan: Replace electrolytes prn. Montior labs, I/O. Monitor daily weight. Continue fluid restriction. Mobilize. Dzrxiesijcj19 Overview: History: Post-op problem. Assessment: CXR 08/15 with sm effusions/bibasilar atelectasis. Plan: Mobilize now that on tele. Encourage PEP, cough and deep breathing. Pain control. Large RT penumothorax. Overview: History: Post-op problem. Developed near complete right pneumothorax 08/13 Assessment: CXR with resolved pneumo. On RA. Right pigtail removed 08.18.2018 without incident. Plan: Post-pull repeat CXR ipending. Continue RADIO OPERATOR GROUND for pain related to catheter. Acute post-operative pain Overview: History: post OHS Assessment: pain is well controlled with current regimen. Pt. requests RADIO OPERATOR GROUND continue. Does have itching when takes Oxycodone, but states all pain meds causes this for him (no rash noted) Plan: Continue current regimen with lidoderm patches, Tylenol, Oxycodone/Tramadol, and RADIO OPERATOR GROUND. Add Benadryl. Bowel regimen in place. Cardiac cycqorvvwqryq84 Overview: Normal biventricular function pre/post. On epinephrine from OR. Weaned to off. Mentating well. UO marginal (fluids administered) CVP wnl. ScvO2 71 LA wnl Postoperative lhucliaaaun19 Overview: A/P: MAP 74 mmHg with goal 65-75 mmHg. On levophed. Wean able Stress fyzppwgqqmoxr94 Overview: SSI On mechanically assisted uxucdnnkbns67 Overview: A/P Intubated and sedate from OR. WTE. Secondary pnahqdcfeszphokd00 Overview: History: post-op problem. Plt count trended as low as 68k 08/14. Assessment: Improving to 77k. Plan: Continue ASA, SQ Heparin as tolerating with no further decline in plt count. Preop btdvxev00 Overview: [facility] PRE-OP CHECKLIST [...] Cardiac Surgical prep: N/A SIGNATURE: Belia Gardner APRN.THERAPEUTIC ACTIVITIES SERVICES WORKER CHECKED BY: DATE of SERVICE: 08/11/2018 TIME of SERVICE: 5:09 PM Ascending aortic tsfgcutv50/21/2018Dilated aortic root08/15/2018documented as of this encounter (statuses as of 12/27/2022) [facility]09[facility] History of Past illness Narrative* ProblemNoted Date Resolved DateVolume ajrtpjxb48 Overview: History: Post-op problem. Weight up as much as 7.2 kg Assessment: (+) 3.2 kg. On IV lasix. Plan: Replace electrolytes prn. Montior labs, I/O. Monitor daily weight. Continue fluid restriction. Mobilize. Rpijfzhmbrd12 Overview: History: Post-op problem. Assessment: CXR 08/15 with sm effusions/bibasilar atelectasis. Plan: Mobilize now that on tele. Encourage PEP, cough and deep breathing. Pain control. Large RT penumothorax. Overview: History: Post-op problem. Developed near complete right pneumothorax 08/13 Assessment: CXR with resolved pneumo. On RA. Right pigtail removed 08.18.2018 without incident. Plan: Post-pull repeat CXR ipending. Continue RADIO OPERATOR GROUND for pain related to catheter. Acute post-operative pain Overview: History: post OHS Assessment: pain is well controlled with current regimen. Pt. requests RADIO OPERATOR GROUND continue. Does have itching when takes Oxycodone, but states all pain meds causes this for him (no rash noted) Plan: Continue current regimen with lidoderm patches, Tylenol, Oxycodone/Tramadol, and RADIO OPERATOR GROUND. Add Benadryl. Bowel regimen in place. Cardiac igqhmnazagumx57 Overview: Normal biventricular function pre/post. On epinephrine from OR. Weaned to off. Mentating well. UO marginal (fluids administered) CVP wnl. ScvO2 71 LA wnl Postoperative Overview: A/P: MAP 74 mmHg with goal 65-75 mmHg. On levophed. Wean able Stress bigyesuqxnnhy98 Overview: SSI On mechanically assisted ltqyphpaxvo36 Overview: A/P Intubated and sedate from OR. WTE. Secondary rgsgrpelaejrcwcn37 Overview: History: post-op problem. Plt count trended as low as 68k 08/14. Assessment: Improving to 77k. Plan: Continue ASA, SQ Heparin as tolerating with no further decline in plt count. Preop bpkdoyx33 Overview: [facility] PRE-OP CHECKLIST [...] Cardiac Surgical prep: N/A SIGNATURE: Belia Gardner APRN.THERAPEUTIC ACTIVITIES SERVICES WORKER CHECKED BY: DATE of SERVICE: 08/11/2018 TIME of SERVICE: 5:09 PM Ascending aortic tdyigrsn06/21/2018Dilated aortic root08/15/2018documented as of this encounter (statuses as of 01/01/2023) [facility] History of Past illness Narrative* ProblemNoted Date Resolved DateVolume egdbkasi39 Overview: History: Post-op problem. Weight up as much as 7.2 kg Assessment: (+) 3.2 kg. On IV lasix. Plan: Replace electrolytes prn. Montior labs, I/O. Monitor daily weight. Continue fluid restriction. Mobilize. Ubsifhqvejq27 Overview: History: Post-op problem. Assessment: CXR 08/15 with sm effusions/bibasilar atelectasis. Plan: Mobilize now that on tele. Encourage PEP, cough and deep breathing. Pain control. Large RT penumothorax. Overview: History: Post-op problem. Developed near complete right pneumothorax 08/13 Assessment: CXR with resolved pneumo. On RA. Right pigtail removed 08.18.2018 without incident. Plan: Post-pull repeat CXR ipending. Continue RADIO OPERATOR GROUND for pain related to catheter. Acute post-operative pain Overview: History: post OHS Assessment: pain is well controlled with current regimen. Pt. requests RADIO OPERATOR GROUND continue. Does have itching when takes Oxycodone, but states all pain meds causes this for him (no rash noted) Plan: Continue current regimen with lidoderm patches, Tylenol, Oxycodone/Tramadol, and RADIO OPERATOR GROUND. Add Benadryl. Bowel regimen in place. Cardiac svfqjubbtmjdx91 Overview: Normal biventricular function pre/post. On epinephrine from OR. Weaned to off. Mentating well. UO marginal (fluids administered) CVP wnl. ScvO2 71 LA wnl Postoperative zdbzwkipups20 Overview: A/P: MAP 74 mmHg with goal 65-75 mmHg. On levophed. Wean able Stress bgqrrgmzkzpog81 Overview: SSI On mechanically assisted bqowpbftzyp99 Overview: A/P Intubated and sedate from OR. WTE. Secondary jgokgcweyvpowopc89 Overview: History: post-op problem. Plt count trended as low as 68k 08/14. Assessment: Improving to 77k. Plan: Continue ASA, SQ Heparin as tolerating with no further decline in plt count. Preop lpquptl17 Overview: [facility] PRE-OP CHECKLIST [...] Cardiac Surgical prep: N/A SIGNATURE: Belia Gardner APRN.THERAPEUTIC ACTIVITIES SERVICES WORKER CHECKED BY: DATE of SERVICE: 08/11/2018 TIME of SERVICE: 5:09 PM Ascending aortic pxjwllyd58/21/2018Dilated aortic root08/15/2018documented as of this encounter (statuses as of 01/09/2023) [facility]09-21-2018 History of Past illness Narrative* ProblemNoted Date Resolved DateVolume yyqzmski09 Overview: History: Post-op problem. Weight up as much as 7.2 kg Assessment: (+) 3.2 kg. On IV lasix. Plan: Replace electrolytes prn. Montior labs, I/O. Monitor daily weight. Continue fluid restriction. Mobilize. Uxedmvqbjsw81 Overview: History: Post-op problem. Assessment: CXR 08/15 with sm effusions/bibasilar atelectasis. Plan: Mobilize now that on tele. Encourage PEP, cough and deep breathing. Pain control. Large RT penumothorax. Overview: History: Post-op problem. Developed near complete right pneumothorax 08/13 Assessment: CXR with resolved pneumo. On RA. Right pigtail removed 08.18.2018 without incident. Plan: Post-pull repeat CXR ipending. Continue RADIO OPERATOR GROUND for pain related to catheter. Acute post-operative pain Overview: History: post OHS Assessment: pain is well controlled with current regimen. Pt. requests RADIO OPERATOR GROUND continue. Does have itching when takes Oxycodone, but states all pain meds causes this for him (no rash noted) Plan: Continue current regimen with lidoderm patches, Tylenol, Oxycodone/Tramadol, and RADIO OPERATOR GR[employer]. Add Benadryl. Bowel regimen in place. Cardiac qeztbjlkucjex13 Overview: Normal biventricular function pre/post. On epinephrine from OR. Weaned to off. Mentating well. UO marginal (fluids administered) CVP wnl. ScvO2 71 LA wnl Postoperative zindmicjhzh69 Overview: A/P: MAP 74 mmHg with goal 65-75 mmHg. On levophed. Wean able Stress hzlemsizbclwl16 Overview: SSI On mechanically assisted kcrsejxcgsi85 Overview: A/P Intubated and sedate from OR. WTE. Secondary xdxjckuyepsauzyq18 Overview: History: post-op problem. Plt count trended as low as 68k 08/14. Assessment: Improving to 77k. Plan: Continue ASA, SQ Heparin as tolerating with no further decline in plt count. Preop vexzieb93 Overview: [facility] [...] Cardiac Surgical prep: N/A SIGNATURE: Belia Gardner APRN.[employer]APE[employer]IC [employer]IV[employer]IES SERVICES WORKER CHECKED BY: DATE of SERVICE: 08/11/2018 TIME of SERVICE: 5:09 PM Ascending aortic mbpikiqg95/21/2018Dilated aortic root08/15/2018documented as of this encounter (statuses as of 01/12/2023) [facility]09-21-2018 History of Past illness Narrative* ProblemNoted Date Resolved DateVolume rykpvwgm01 Overview: History: Post-op problem. Weight up as much as 7.2 kg Assessment: (+) 3.2 kg. On IV lasix. Plan: Replace electrolytes prn. Montior labs, I/O. Monitor daily weight. Continue fluid restriction. Mobilize. Donramkkruw42 Overview: History: Post-op problem. Assessment: CXR 08/15 with sm effusions/bibasilar atelectasis. Plan: Mobilize now that on tele. Encourage PEP, cough and deep breathing. Pain control. Large RT penumothorax. Overview: History: Post-op problem. Developed near complete right pneumothorax 08/13 Assessment: CXR with resolved pneumo. On RA. Right pigtail removed 08.18.2018 without incident. Plan: Post-pull repeat CXR ipending. Continue RADIO OPERATOR [employer] for pain related to catheter. Acute post-operative pain Overview: History: post OHS Assessment: pain is well controlled with current regimen. Pt. requests RADIO OPERATOR [employer] continue. Does have itching when takes Oxycodone, but states all pain meds causes this for him (no rash noted) Plan: Continue current regimen with lidoderm patches, Tylenol, Oxycodone/Tramadol, and RADIO OPERATOR [employer]. Add Benadryl. Bowel regimen in place. Cardiac wemecmnsyxzgy65 Overview: Normal biventricular function pre/post. On epinephrine from OR. Weaned to off. Mentating well. UO marginal (fluids administered) CVP wnl. ScvO2 71 LA wnl Postoperative ahcpqurnhkb91 Overview: A/P: MAP 74 mmHg with goal 65-75 mmHg. On levophed. Wean able Stress gwdbfwvzftmob14 Overview: SSI On mechanically assisted pbhhczkcpac24 Overview: A/P Intubated and sedate from OR. WTE. Secondary tnxjjuiqfovrycnz94 Overview: History: post-op problem. Plt count trended as low as 68k 08/14. Assessment: Improving to 77k. Plan: Continue ASA, SQ Heparin as tolerating with no further decline in plt count. Preop qyazney02 Overview: [facility] PRE[facility] [...] Cardiac Surgical prep: N/A SIGNATURE: Belia Gardner APRN.THERAPE[employer]IVITIES SERVICES WORKER CHECKED BY: DATE of SERVICE: 08/11/2018 TIME of SERVICE: 5:09 PM Ascending aortic xxiayorx06/21/2018Dilated aortic root08/15/2018documented as of this encounter (statuses as of 01/12/2023) [facility]09-21-2018 History of Past illness Narrative* ProblemNoted Date Resolved DateVolume xvohvnkc45 Overview: History: Post-op problem. Weight up as much as 7.2 kg Assessment: (+) 3.2 kg. On IV lasix. Plan: Replace electrolytes prn. Montior labs, I/O. Monitor daily weight. Continue fluid restriction. Mobilize. Ioijkhehenz40 Overview: History: Post-op problem. Assessment: CXR 08/15 with sm effusions/bibasilar atelectasis. Plan: Mobilize now that on tele. Encourage PEP, cough and deep breathing. Pain control. Large RT penumothorax.08/13/ Overview: History: Post-op problem. Developed near complete right pneumothorax 08/13 Assessment: CXR with resolved pneumo. On RA. Right pigtail removed 08.18.2018 without incident. Plan: Post-pull repeat CXR ipending. Continue RADIO OPERATOR [employer] for pain related to catheter. Acute post-operative pain Overview: History: post OHS Assessment: pain is well controlled with current regimen. Pt. requests RADIO OPERATOR [employer] continue. Does have itching when takes Oxycodone, but states all pain meds causes this for him (no rash noted) Plan: Continue current regimen with lidoderm patches, Tylenol, Oxycodone/Tramadol, and RADIO OPERATOR [employer]. Add Benadryl. Bowel regimen in place. Cardiac psadexghgrjku10 Overview: Normal biventricular function pre/post. On epinephrine from OR. Weaned to off. Mentating well. UO marginal (fluids administered) CVP wnl. ScvO2 71 LA wnl Postoperative rvyszzbhnhk09 Overview: A/P: MAP 74 mmHg with goal 65-75 mmHg. On levophed. Wean able Stress ndspxizhnxxcw63 Overview: SSI On mechanically assisted bwkfgznkmoy47 Overview: A/P Intubated and sedate from OR. WTE. Secondary rzqxldcefgcdgsbj23 Overview: History: post-op problem. Plt count trended as low as 68k 08/14. Assessment: Improving to 77k. Plan: Continue ASA, SQ Heparin as tolerating with no further decline in plt count. Preop ykemjfq54 Overview: [facility] PRE[facility] [...] Cardiac Surgical prep: N/A SIGNATURE: Belia Gardner APRN.[employer]APE[employer]IVITIES SERVICES WORKER CHECKED BY: DATE of SERVICE: 08/11/2018 TIME of SERVICE: 5:09 PM Ascending aortic iujmfxcc08/21/2018Dilated aortic root08/15/2018documented as of this encounter (statuses as of 02/06/2023) [facility]09-21-2018 History of Past illness Narrative* ProblemNoted Date Resolved DateVolume gtypmxrg00 Overview: History: Post-op problem. Weight up as much as 7.2 kg Assessment: (+) 3.2 kg. On IV lasix. Plan: Replace electrolytes prn. Montior labs, I/O. Monitor daily weight. Continue fluid restriction. Mobilize. Suexsymlrrq47 Overview: History: Post-op problem. Assessment: CXR 08/15 with sm effusions/bibasilar atelectasis. Plan: Mobilize now that on tele. Encourage PEP, cough and deep breathing. Pain control. Large RT penumothorax. Overview: History: Post-op problem. Developed near complete right pneumothorax 08/13 Assessment: CXR with resolved pneumo. On RA. Right pigtail removed 08.18.2018 without incident. Plan: Post-pull repeat CXR ipending. Continue RADIO OPERATOR [employer] for pain related to catheter. Acute post-operative pain Overview: History: post OHS Assessment: pain is well controlled with current regimen. Pt. requests RADIO OPERATOR [employer] continue. Does have itching when takes Oxycodone, but states all pain meds causes this for him (no rash noted) Plan: Continue current regimen with lidoderm patches, Tylenol, Oxycodone/Tramadol, and RADIO OPERATOR [employer]. Add Benadryl. Bowel regimen in place. Cardiac bpuczmeqvmsly83 Overview: Normal biventricular function pre/post. On epinephrine from OR. Weaned to off. Mentating well. UO marginal (fluids administered) CVP wnl. ScvO2 71 LA wnl Postoperative klceyehaxyf35 Overview: A/P: MAP 74 mmHg with goal 65-75 mmHg. On levophed. Wean able Stress kohwxhmrlqcum49 Overview: SSI On mechanically assisted vjbtcvkkqeb39 Overview: A/P Intubated and sedate from OR. WTE. Secondary eamkinynqkkehgyx51 Overview: History: post-op problem. Plt count trended as low as 68k 08/14. Assessment: Improving to 77k. Plan: Continue ASA, SQ Heparin as tolerating with no further decline in plt count. Preop gstubve67 Overview: [facility] PRE-[facility] [...] Cardiac Surgical prep: N/A SIGNATURE: Belia Gardner APRN.[employer]APE[employer]IV[employer]IES SERVICES WORKER CHECKED BY: DATE of SERVICE: 08/11/2018 TIME of SERVICE: 5:09 PM Ascending aortic hovowdvk74/21/2018Dilated aortic root08/15/2018documented as of this encounter (statuses as of 02/07/2023) [facility]09-21-2018 History of Past illness Narrative* ProblemNoted Date Resolved DateVolume Overview: History: Post-op problem. Weight up as much as 7.2 kg Assessment: (+) 3.2 kg. On IV lasix. Plan: Replace electrolytes prn. Montior labs, I/O. Monitor daily weight. Continue fluid restriction. Mobilize. Qkuwanaigbq80 Overview: History: Post-op problem. Assessment: CXR 08/15 with sm effusions/bibasilar atelectasis. Plan: Mobilize now that on tele. Encourage PEP, cough and deep breathing. Pain control. Large RT penumothorax. Overview: History: Post-op problem. Developed near complete right pneumothorax 08/13 Assessment: CXR with resolved pneumo. On RA. Right pigtail removed 08.18.2018 without incident. Plan: Post-pull repeat CXR ipending. Continue RADIO OPERATOR [employer] for pain related to catheter. Acute post-operative pain Overview: History: post OHS Assessment: pain is well controlled with current regimen. Pt. requests RADIO OPERATOR GR[employer] continue. Does have itching when takes Oxycodone, but states all pain meds causes this for him (no rash noted) Plan: Continue current regimen with lidoderm patches, Tylenol, Oxycodone/Tramadol, and RADIO OPERATOR [employer]. Add Benadryl. Bowel regimen in place. Cardiac yfadnelcltqkp89 Overview: Normal biventricular function pre/post. On epinephrine from OR. Weaned to off. Mentating well. UO marginal (fluids administered) CVP wnl. ScvO2 71 LA wnl Postoperative dyggduqsacu10 Overview: A/P: MAP 74 mmHg with goal 65-75 mmHg. On levophed. Wean able Stress rptfrtnkebmnd20 Overview: SSI On mechanically assisted ojgfwklnwlh86 Overview: A/P Intubated and sedate from OR. WTE. Secondary oluecqpgfvzxcffx63 Overview: History: post-op problem. Plt count trended as low as 68k 08/14. Assessment: Improving to 77k. Plan: Continue ASA, SQ Heparin as tolerating with no further decline in plt count. Preop qhrrwev31 Overview: [facility] PRE-[facility]LIST [...] Cardiac Surgical prep: N/A SIGNATURE: Belia Gardner APRN.[employer]APE[employer]IV[employer]IES SERVICES WORKER CHECKED BY: DATE of SERVICE: 08/11/2018 TIME of SERVICE: 5:09 PM Ascending aortic sbgivjct12/21/2018Dilated aortic root08/15/2018documented as of this encounter (statuses as of 02/12/2023) [facility]09-21-2018 History of Past illness Narrative* ProblemNoted Date Resolved DateVolume itwgsgwe74 Overview: History: Post-op problem. Weight up as much as 7.2 kg Assessment: (+) 3.2 kg. On IV lasix. Plan: Replace electrolytes prn. Montior labs, I/O. Monitor daily weight. Continue fluid restriction. Mobilize. Qzzpbcgdwpl96 Overview: History: Post-op problem. Assessment: CXR 08/15 with sm effusions/bibasilar atelectasis. Plan: Mobilize now that on tele. Encourage PEP, cough and deep breathing. Pain control. Large RT penumothorax. Overview: History: Post-op problem. Developed near complete right pneumothorax 08/13 Assessment: CXR with resolved pneumo. On RA. Right pigtail removed 08.18.2018 without incident. Plan: Post-pull repeat CXR ipending. Continue RADIO OPERATOR [employer] for pain related to catheter. Acute post-operative pain Overview: History: post OHS Assessment: pain is well controlled with current regimen. Pt. requests RADIO OPERATOR GR[employer] continue. Does have itching when takes Oxycodone, but states all pain meds causes this for him (no rash noted) Plan: Continue current regimen with lidoderm patches, Tylenol, Oxycodone/Tramadol, and RADIO OPERATOR [employer]. Add Benadryl. Bowel regimen in place. Cardiac gkedlluvmpebw29 Overview: Normal biventricular function pre/post. On epinephrine from OR. Weaned to off. Mentating well. UO marginal (fluids administered) CVP wnl. ScvO2 71 LA wnl Postoperative bgkilrptrfs45 Overview: A/P: MAP 74 mmHg with goal 65-75 mmHg. On levophed. Wean able Stress otijjcmjarfuy88 Overview: SSI On mechanically assisted bdlozaadwlj71 Overview: A/P Intubated and sedate from OR. WTE. Secondary ihusnlgvnntyjwsw60 Overview: History: post-op problem. Plt count trended as low as 68k 08/14. Assessment: Improving to 77k. Plan: Continue ASA, SQ Heparin as tolerating with no further decline in plt count. Preop iwspgob74 Overview: [facility] PRE-[facility] [...] Cardiac Surgical prep: N/A SIGNATURE: Belia Gardner APRN.[employer]APE[employer] ACTIVITIES SERVICES WORKER CHECKED BY: DATE of SERVICE: 08/11/2018 TIME of SERVICE: 5:09 PM Ascending aortic xhknideq61/21/2018Dilated aortic root08/15/2018documented as of this encounter (statuses as of 03/13/2023) [facility]09-21-2018 History of Past illness Narrative* ProblemNoted Date Diagnosed DateResolved DateVolume afeokjxd53 Overview: History: Post-op problem. Weight up as much as 7.2 kg Assessment: (+) 3.2 kg. On IV lasix. Plan: Replace electrolytes prn. Montior labs, I/O. Monitor daily weight. Continue fluid restriction. Mobilize. Erxcysltvbp61 Overview: History: Post-op problem. Assessment: CXR 08/15 with sm effusions/bibasilar atelectasis. Plan: Mobilize now that on tele. Encourage PEP, cough and deep breathing. Pain control. Large RT penumothorax. Overview: History: Post-op problem. Developed near complete right pneumothorax 08/13 Assessment: CXR with resolved pneumo. On RA. Right pigtail removed 08.18.2018 without incident. Plan: Post-pull repeat CXR ipending. Continue RADIO OPER[employer] GR[employer] for pain related to catheter. Acute post-operative pain Overview: History: post OHS Assessment: pain is well controlled with current regimen. Pt. requests RADIO OPERATOR GROUND continue. Does have itching when takes Oxycodone, but states all pain meds causes this for him (no rash noted) Plan: Continue current regimen with lidoderm patches, Tylenol, Oxycodone/Tramadol, and RADIO OPERATOR [employer]. Add Benadryl. Bowel regimen in place. Cardiac yaotmdvxeoiqo64 Overview: Normal biventricular function pre/post. On epinephrine from OR. Weaned to off. Mentating well. UO marginal (fluids administered) CVP wnl. ScvO2 71 LA wnl Postoperative mqipdimkawt44 Overview: A/P: MAP 74 mmHg with goal 65-75 mmHg. On levophed. Wean able Stress mryppzpsokydk97 Overview: SSI On mechanically assisted vmnoyjoddqr02 Overview: A/P Intubated and sedate from OR. WTE. Secondary efjobbkjjqxcmfyo95 Overview: History: post-op problem. Plt count trended as low as 68k 08/14. Assessment: Improving to 77k. Plan: Continue ASA, SQ Heparin as tolerating with no further decline in plt count. Preop odlcxct62 Overview: [facility] PRE-[facility] CHECKLIST [...] Cardiac Surgical prep: N/A SIGNATURE: Belia Gardner APRN.[employer]APE[employer]IVITIES SERVICES WORKER CHECKED BY: DATE of SERVICE: 08/11/2018 TIME of SERVICE: 5:09 PM Ascending aortic yrlktkhn98/21/2018Dilated aortic root08/15/2018documented as of this encounter (statuses as of 06/05/2023) [facility]09-[facility]-2018 History of Past illness Narrative* ProblemNoted Date Diagnosed DateResolved DateVolume Overview: History: Post-op problem. Weight up as much as 7.2 kg Assessment: (+) 3.2 kg. On IV lasix. Plan: Replace electrolytes prn. Montior labs, I/O. Monitor daily weight. Continue fluid restriction. Mobilize. Xjxltnujnjx66 Overview: History: Post-op problem. Assessment: CXR 08/15 with sm effusions/bibasilar atelectasis. Plan: Mobilize now that on tele. Encourage PEP, cough and deep breathing. Pain control. Large RT penumothorax. Overview: History: Post-op problem. Developed near complete right pneumothorax 08/13 Assessment: CXR with resolved pneumo. On RA. Right pigtail removed 08.18.2018 without incident. Plan: Post-pull repeat CXR ipending. Continue RADIO OPERATOR GR[employer] for pain related to catheter. Acute post-operative pain Overview: History: post OHS Assessment: pain is well controlled with current regimen. Pt. requests RADIO OPERATOR GR[employer] continue. Does have itching when takes Oxycodone, but states all pain meds causes this for him (no rash noted) Plan: Continue current regimen with lidoderm patches, Tylenol, Oxycodone/Tramadol, and RADIO OPERATOR [employer]. Add Benadryl. Bowel regimen in place. Cardiac qqceshfsujbrf13 Overview: Normal biventricular function pre/post. On epinephrine from OR. Weaned to off. Mentating well. UO marginal (fluids administered) CVP wnl. ScvO2 71 LA wnl Postoperative Overview: A/P: MAP 74 mmHg with goal 65-75 mmHg. On levophed. Wean able Stress Overview: SSI On mechanically assisted aplsruzpmuc98 Overview: A/P Intubated and sedate from OR. WTE. Secondary pvwcmfsiowvtqhnm17 Overview: History: post-op problem. Plt count trended as low as 68k 08/14. Assessment: Improving to 77k. Plan: Continue ASA, SQ Heparin as tolerating with no further decline in plt count. Preop Overview: [facility] PRE-[facility] CHECKLIST [...] TIME of SERVICE: 5:09 PM Ascending aortic ufqdmsbv60/21/2018Dilated aortic root08/15/2018documented as of this encounter (statuses as of 07/08/2023) [facility]2018 History of Past illness Narrative* ProblemNoted Date Diagnosed DateResolved DateVolume yptyftln06 Overview: History: Post-op problem. Weight up as much as 7.2 kg Assessment: (+) 3.2 kg. On IV lasix. Plan: Replace electrolytes prn. Montior labs, I/O. Monitor daily weight. Continue fluid restriction. Mobilize. Fotgfazutye57 Overview: History: Post-op problem. Assessment: CXR 08/15 with sm effusions/bibasilar atelectasis. Plan: Mobilize now that on tele. Encourage PEP, cough and deep breathing. Pain control. Large RT penumothorax. Overview: History: Post-op problem. Developed near complete right pneumothorax 08/13 Assessment: CXR with resolved pneumo. On RA. Right pigtail removed 08.18.2018 without incident. Plan: Post-pull repeat CXR ipending. Continue RADIO OPERATOR [employer] for pain related to catheter. Acute post-operative pain Overview: History: post OHS Assessment: pain is well controlled with current regimen. Pt. requests RADIO OPERATOR [employer] continue. Does have itching when takes Oxycodone, but states all pain meds causes this for him (no rash noted) Plan: Continue current regimen with lidoderm patches, Tylenol, Oxycodone/Tramadol, and RADIO OPERATOR [employer]. Add Benadryl. Bowel regimen in place. Cardiac pywmpntiharjf39 Overview: Normal biventricular function pre/post. On epinephrine from OR. Weaned to off. Mentating well. UO marginal (fluids administered) CVP wnl. ScvO2 71 LA wnl Postoperative ikptrwmoaza86 Overview: A/P: MAP 74 mmHg with goal 65-75 mmHg. On levophed. Wean able Stress wjvyqbqsgoxol77 Overview: SSI On mechanically assisted hcjgfyifhnq89 Overview: A/P Intubated and sedate from OR. WTE. Secondary odcxsawdrvnkzdvu33 Overview: History: post-op problem. Plt count trended as low as 68k 08/14. Assessment: Improving to 77k. Plan: Continue ASA, SQ Heparin as tolerating with no further decline in plt count. Preop ciwrrkl54 Overview: [facility] PRE-OP CHECKLIST [...] Cardiac Surgical prep: N/A SIGNATURE: Belia Gardner APRN.[employer]IVITIES SERVICES WORKER CHECKED BY: DATE of SERVICE: 08/11/2018 TIME of SERVICE: 5:09 PM Ascending aortic frxaothx64/21/2018Dilated aortic root08/15/2018documented as of this encounter (statuses as of 07/15/2023) [facility] History of Past illness Narrative* ProblemNoted Date Diagnosed DateResolved DateVolume bcyaydih80 Overview: History: Post-op problem. Weight up as much as 7.2 kg Assessment: (+) 3.2 kg. On IV lasix. Plan: Replace electrolytes prn. Montior labs, I/O. Monitor daily weight. Continue fluid restriction. Mobilize. Cjyqmlbtdwb06 Overview: History: Post-op problem. Assessment: CXR 08/15 with sm effusions/bibasilar atelectasis. Plan: Mobilize now that on tele. Encourage PEP, cough and deep breathing. Pain control. Large RT penumothorax.08/13/ Overview: History: Post-op problem. Developed near complete right pneumothorax 08/13 Assessment: CXR with resolved pneumo. On RA. Right pigtail removed 08.18.2018 without incident. Plan: Post-pull repeat CXR ipending. Continue RADIO OPER[employer] for pain related to catheter. Acute post-operative pain Overview: History: post OHS Assessment: pain is well controlled with current regimen. Pt. requests RADIO OPERATOR GR[employer] continue. Does have itching when takes Oxycodone, but states all pain meds causes this for him (no rash noted) Plan: Continue current regimen with lidoderm patches, Tylenol, Oxycodone/Tramadol, and RADIO OPERATOR GR[employer]. Add Benadryl. Bowel regimen in place. Cardiac fkuunlyoqsquu72 Overview: Normal biventricular function pre/post. On epinephrine from OR. Weaned to off. Mentating well. UO marginal (fluids administered) CVP wnl. ScvO2 71 LA wnl Postoperative ariksvsknjd58 Overview: A/P: MAP 74 mmHg with goal 65-75 mmHg. On levophed. Wean able Stress Overview: SSI On mechanically assisted omspnhordsx82 Overview: A/P Intubated and sedate from OR. WTE. Secondary hbilaaelqqfymmjn03 Overview: History: post-op problem. Plt count trended as low as 68k 08/14. Assessment: Improving to 77k. Plan: Continue ASA, SQ Heparin as tolerating with no further decline in plt count. Preop Overview: [facility] PRE-OP CHECKLIST [...] TIME of SERVICE: 5:09 PM Ascending aortic eyjwblwq48/21/2018Dilated aortic root08/15/2018documented as of this encounter (statuses as of 08/13/2023) [facility] History of Past illness Narrative* ProblemNoted Date Diagnosed DateResolved DateVolume zvpkcosm40 Overview: History: Post-op problem. Weight up as much as 7.2 kg Assessment: (+) 3.2 kg. On IV lasix. Plan: Replace electrolytes prn. Montior labs, I/O. Monitor daily weight. Continue fluid restriction. Mobilize. Juyhvxwrsmk22 Overview: History: Post-op problem. Assessment: CXR 08/15 with sm effusions/bibasilar atelectasis. Plan: Mobilize now that on tele. Encourage PEP, cough and deep breathing. Pain control. Large RT penumothorax. Overview: History: Post-op problem. Developed near complete right pneumothorax 08/13 Assessment: CXR with resolved pneumo. On RA. Right pigtail removed 08.18.2018 without incident. Plan: Post-pull repeat CXR ipending. Continue [employer]IO OPER[employer] for pain related to catheter. Acute post-operative pain Overview: History: post OHS Assessment: pain is well controlled with current regimen. Pt. requests RADIO OPERATOR GROUND continue. Does have itching when takes Oxycodone, but states all pain meds causes this for him (no rash noted) Plan: Continue current regimen with lidoderm patches, Tylenol, Oxycodone/Tramadol, and RADIO OPERATOR GROUND. Add Benadryl. Bowel regimen in place. Cardiac uzzytmmosvamp94 Overview: Normal biventricular function pre/post. On epinephrine from OR. Weaned to off. Mentating well. UO marginal (fluids administered) CVP wnl. ScvO2 71 LA wnl Postoperative mssjcadmqym29 Overview: A/P: MAP 74 mmHg with goal 65-75 mmHg. On levophed. Wean able Stress ryvghvhsiwmlv38 Overview: SSI On mechanically assisted qyhnalbjaal09 Overview: A/P Intubated and sedate from OR. WTE. Secondary pyjytkrvgypprght31 Overview: History: post-op problem. Plt count trended as low as 68k 08/14. Assessment: Improving to 77k. Plan: Continue ASA, SQ Heparin as tolerating with no further decline in plt count. Preop [id number] Overview: [facility] PRE-OP CHECKLIST [...] TIME of SERVICE: 5:09 PM Ascending aortic reialaln76/21/2018Dilated aortic root08/15/2018documented as of this encounter (statuses as of 08/19/2023) [facility]09-21-2018 History of Past illness Narrative* ProblemNoted Date Diagnosed DateResolved DateVolume [id number] Overview: History: Post-op problem. Weight up as much as 7.2 kg Assessment: (+) 3.2 kg. On IV lasix. Plan: Replace electrolytes prn. Montior labs, I/O. Monitor daily weight. Continue fluid restriction. Mobilize. Zxomotmusom09 Overview: History: Post-op problem. Assessment: CXR 08/15 with sm effusions/bibasilar atelectasis. Plan: Mobilize now that on tele. Encourage PEP, cough and deep breathing. Pain control. Large RT penumothorax. Overview: History: Post-op problem. Developed near complete right pneumothorax 08/13 Assessment: CXR with resolved pneumo. On RA. Right pigtail removed 08.18.2018 without incident. Plan: Post-pull repeat CXR ipending. Continue RADIO OPERATOR GROUND for pain related to catheter. Acute post-operative pain Overview: History: post OHS Assessment: pain is well controlled with current regimen. Pt. requests RADIO OPERATOR GROUND continue. Does have itching when takes Oxycodone, but states all pain meds causes this for him (no rash noted) Plan: Continue current regimen with lidoderm patches, Tylenol, Oxycodone/Tramadol, and RADIO OPERATOR GROUND. Add Benadryl. Bowel regimen in place. Cardiac pwvzkczonyfro14 Overview: Normal biventricular function pre/post. On epinephrine from OR. Weaned to off. Mentating well. UO marginal (fluids administered) CVP wnl. ScvO2 71 LA wnl Postoperative iigmdugksxa13 Overview: A/P: MAP 74 mmHg with goal 65-75 mmHg. On levophed. Wean able Stress mkxssilpobcxp92 Overview: SSI On mechanically assisted zgonnhnmqpz93 Overview: A/P Intubated and sedate from OR. WTE. Secondary bwmtaehvwyjkqeeg07 Overview: History: post-op problem. Plt count trended as low as 68k 08/14. Assessment: Improving to 77k. Plan: Continue ASA, SQ Heparin as tolerating with no further decline in plt count. Preop yiswivv43 Overview: [facility] PRE-OP CHECKLIST [...] TIME of SERVICE: 5:09 PM Ascending aortic vxqmkabi51/21/2018Dilated aortic root08/15/2018documented as of this encounter (statuses as of 11/13/2023) [facility]09-21-2018 History of Past illness Narrative* ProblemNoted Date Diagnosed DateResolved DateVolume [id number] Overview: History: Post-op problem. Weight up as much as 7.2 kg Assessment: (+) 3.2 kg. On IV lasix. Plan: Replace electrolytes prn. Montior labs, I/O. Monitor daily weight. Continue fluid restriction. Mobilize. Isqmqpkgbkj03 Overview: History: Post-op problem. Assessment: CXR 08/15 with sm effusions/bibasilar atelectasis. Plan: Mobilize now that on tele. Encourage PEP, cough and deep breathing. Pain control. Large RT penumothorax. Overview: History: Post-op problem. Developed near complete right pneumothorax 08/13 Assessment: CXR with resolved pneumo. On RA. Right pigtail removed 08.18.2018 without incident. Plan: Post-pull repeat CXR ipending. Continue RADIO OPER[employer] GR[employer] for pain related to catheter. Acute post-operative pain Overview: History: post OHS Assessment: pain is well controlled with current regimen. Pt. requests RADIO OPERATOR GROUND continue. Does have itching when takes Oxycodone, but states all pain meds causes this for him (no rash noted) Plan: Continue current regimen with lidoderm patches, Tylenol, Oxycodone/Tramadol, and RADIO OPERATOR GROUND. Add Benadryl. Bowel regimen in place. Cardiac cocccgxchzatb59 Overview: Normal biventricular function pre/post. On epinephrine from OR. Weaned to off. Mentating well. UO marginal (fluids administered) CVP wnl. ScvO2 71 LA wnl Postoperative pqkieikczmz76 Overview: A/P: MAP 74 mmHg with goal 65-75 mmHg. On levophed. Wean able Stress dxiaymlyicfss25 Overview: SSI On mechanically assisted yvgtsmontit45 Overview: A/P Intubated and sedate from OR. WTE. Secondary sfshsvdnzdwqalle71 Overview: History: post-op problem. Plt count trended as low as 68k 08/14. Assessment: Improving to 77k. Plan: Continue ASA, SQ Heparin as tolerating with no further decline in plt count. Preop tisukpg95 Overview: [facility] PRE-OP CHECKLIST [...] Cardiac Surgical prep: N/A SIGNATURE: Belia Gardner APRN.THERAPEUTIC ACTIVITIES SERVICES WORKER CHECKED BY: DATE of SERVICE: 08/11/2018 TIME of SERVICE: 5:09 PM Ascending aortic cwtplmpy49/21/2018Dilated aortic root08/15/2018documented as of this encounter (statuses as of 02/11/2024) [facility] + Plan note No data available for this section [facility] + Plan note Future Appointments Appointment [...] Location:FT.PHYSICAL [place] Appointment Type:PT Re-Eval 30 (FT) [facility] note* Diagnosis Precordial pain- Primary documented in this encounter [facility] note* Diagnosis Precordial pain documented in this encounter [facility] note* Diagnosis S/P AVR- Primary Heart valve replaced by other means Essential (primary) hypertension Unspecified essential hypertension documented in this encounter [facility] note* Diagnosis Essential hypertension Unspecified essential hypertension documented in this encounter [facility] note* Diagnosis Essential hypertension Unspecified essential hypertension documented in this encounter [facility] note* Diagnosis Chest pain, unspecified type- Primary [facility] Diagnosis S/P AVR- Primary Heart valve replaced by other means Essential hypertension Unspecified essential hypertension Chest discomfort Other chest pain documented in this encounter [facility] note* Diagnosis Physical deconditioning- Primary Debility, unspecified Elevated serum creatinine Other nonspecific findings on examination of blood S/P AVR Heart valve replaced by other means documented in this encounter [facility] note* Diagnosis Elevated serum creatinine- Primary Other [...] Dizziness and giddiness [facility] Diagnosis S/P AVR- Primary Heart valve [...] Other specified counseling [facility] Hyperlipidemia, unspecified hyperlipidemia type- Primary S/P ascending aortic replacement Blood vessel replaced by other means Nonrheumatic aortic valve insufficiency Aortic valve disorders [facility]* Diagnosis S/P right rotator cuff repair- Primary Traumatic complete tear of right rotator cuff, initial encounter [facility]* Diagnosis Essential hypertension Unspecified essential hypertension [facility] Diagnosis Hyperlipidemia, unspecified hyperlipidemia type- Primary Essential hypertension Unspecified essential hypertension S/P AVR Heart valve replaced by other means [facility]* Diagnosis Essential hypertension Unspecified essential hypertension [facility] Diagnosis Hyperlipidemia, unspecified hyperlipidemia type- Primary Essential hypertension Unspecified essential hypertension S/P AVR Heart valve replaced by other means [facility] Diagnosis Essential hypertension- Primary Unspecified essential hypertension Hyperlipidemia, unspecified hyperlipidemia type S/P AVR Heart valve replaced by other means [facility]* Diagnosis Dry eye- Primary Tear film insufficiency, unspecified Meibomian gland dysfunction (MGD) of upper and lower lids of both eyes Dermatochalasis of both upper eyelids Pseudophakia Lens replaced by other means [facility]* Diagnosis Brow ptosis, bilateral- Primary Abnormal finding of blood chemistry, unspecified Encounter for therapeutic drug level monitoring Encounter for therapeutic drug monitoring Abnormal coagulation profile Encounter for screening for human immunodeficiency virus (HIV) Special screening examination for other specified viral diseases [facility] Diagnosis Essential hypertension- Primary Unspecified essential hypertension Hyperlipidemia, unspecified hyperlipidemia type S/P AVR Heart valve replaced by other means [facility]* Diagnosis Essential hypertension Unspecified essential hypertension documented in this encounter [facility] note* Diagnosis Onset Date Resolution Status Admit Date 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 acuteMay 2024 10:53amRotator cuff syndrome of right shoulderacuteMay 2024 10:53am [facility] Work Phone: Evaluation note* Diagnosis Brow ptosis, bilateral- Primary Dermatochalasis of both upper eyelids documented in this encounter [facility] noteNo assessment information availableBellevue Hospital Work Phone: Hospital Discharge instructions No data available for this section [facility] No data available for this section [facility]Reason for referral (narrative)* Diagnostic Procedure Only (Routine) - Pending ReviewSpecialtyDiagnoses / Procedures Referred By ContactReferred To ContactMOLECULAR & FUNCTIONAL IMAGING Diagnoses Precordial pain Procedures NM CARDIAC PERF STRESS/EXERCISE MYOCARDIAL SPECT MULTIPLE STUDIES Todd Nunn MD [address] [place] [address] [facility] [address] [place] [address] Referral IDStatusReasonStart DateExpiration DateVisits RequestedVisits [id number] Review Auto-Generated Referral / [facility] for referral (narrative)* Diagnostic Procedure Only (Routine) - ClosedSpecialtyDiagnoses / ProceduresReferred By ContactReferred To ContactMOLECULAR & FUNCTIONAL IMAGING Diagnoses Precordial pain Procedures NM CARDIAC PERF STRESS/EXERCISE MYOCARDIAL SPECT MULTIPLE STUDIES Todd Nunn MD [address] [place] [address] [facility] [address] [place] [address] Referral IDStatusReasonStart DateExpiration DateVisits RequestedVisits [id number] Auto-Generated Referral / [facility] for referral (narrative)* Outpatient Procedure (Routine) - AuthorizedSpecialtyDiagnoses / ProceduresReferred By ContactReferred To [facility] Diagnoses S/P AVR Procedures ECHO ECHO TTHRC R-T 2D W/WOM-MODE COMPL SPEC&COLR D Juan F Mckinney MD [facility] [place] [address] [facility] [place] [address] [place] [address] Referral IDStatusReasonHoly [place] DateExpiration DateVisits RequestedVisits [id number] Auto-Generated Referral [facility] for referral (narrative)* Diagnostic Procedure Only (Routine) - AuthorizedSpecialtyDiagnoses / ProceduresReferred By Contact Referred To ContactMOLECULAR & FUNCTIONAL IMAGING Diagnoses Chest pain, unspecified type Procedures NM CARDIAC PERF STRESS/PHARM MYOCARDIAL SPECT MULTIPLE STUDIES Todd Nunn MD [address] [place] [address] [facility] [address] [place] [address] Referral IDStatusReasonStart DateExpiration DateVisits RequestedVisits [id number] Auto-Generated Referral / [facility] for referral (narrative)* Outpatient Procedure (Routine) - AuthorizedSpecialtyDiagnoses / ProceduresReferred By ContactReferred To [facility] Diagnoses Chest pain, unspecified type Procedures ECG COMPLETE ECG ROUTINE ECG W/LEAST 12 LDS W/I&R Juan F Mckinney MD [address] [place] [address] [facility] [address] [place] [address] Referral IDStatus[facility]St[facility] DateExpiration DateVisits RequestedVisits [id number] Auto-Generated Referral [facility] for referral (narrative)* Outpatient Procedure (Routine) - Pending ReviewSpecialtyDiagnoses / ProceduresReferred By ContactReferred To [facility] Diagnoses S/P ascending aortic replacement Nonrheumatic aortic valve insufficiency Procedures ECHO ECHO TTHRC R-T 2D W/WOM-MODE COMPL SPEC&COLR D Clarisse Gee APRN.THERAPEUTIC ACTIVITIES SERVICES WORKER [address] [place] [id number] [address] Referral IDStatusReasonStpittsburg DateExpiration DateVisits RequestedVisits [id number] Review Auto-Generated Referral / [facility] for referral (narrative)* Transition of Care (Routine) - AuthorizedSpecialtyDiagnoses / ProceduresReferred By ContactReferred To [facility] Procedures CARDIOVASCULAR MEDICINE OP FOLLOW UP APPT Abeba Harrell APRN.CNP [address] [place] [address] Phone: tel: fax: [facility] [place] [address] [place] [address] Referral IDStatusReasonStpittsburg DateExpiration DateVisits RequestedVisits [id number] PCP Requested Referral [facility] for referral (narrative)No reason for referral information availableBellevue Hospital Work Phone: Advance Directives No Advanced Directives Records FoundDocuments on File TypeDate RecordedPatient RepresentativeExplanationAdvance Directive(s)08/11/2018 5:53 PMAdvance Directive(s)08/11/2018 5:51 PMAdvance Directive(s)06/02/2018 6:58 AM TypeDate RecordedPatient RepresentativeExplanationAdvance Directive(s)08/11/2018 5:53 PMAdvance Directive(s)08/11/2018 5:51 PMAdvance Directive(s)06/02/2018 6:58 AM TypeDate RecordedPatient RepresentativeExplanationAdvance Directive(s)08/11/2018 5:51 PMTypeDate RecordedPatient RepresentativeExplanationAdvance Directive(s) 08/11/2018 5:51 PM Advance Directive Response Recorded Date/ Time Advance Directives No April 08 3:10pm Reason for Referral SpecialtyDiagnoses / ProceduresReferred By ContactReferred To Contact Diagnoses Brow ptosis, bilateral Procedures REFER TO [facility] - PREOPERATIVE OPTIMIZATION OFFICE/OUTPATIENT [facility] 60 MINUTES Angeles Decker MD [address] [facility] [place] [address] Referral IDStatusReasonStmar DateExpiration DateVisits RequestedVisits [id number] / Procedures Referred By ContactReferred To [facility] Procedures CARDIOVASCULAR MEDICINE OP FOLLOW UP APPT ORDER Abeba Keen APRN.CNP [address] [place] [address] [facility] [place] [address] [place] [address] Ref[facility]Status[facility] DateExpiration DateVisits RequestedVisits [id number] Not Required PCP Requested Referral /[id number] / ProceduresReferred By ContactReferred To ContactREHAB AND SP[facility]TS THERAP[facility] INS Diagnoses S/P right rotator cuff repair Traumatic complete tear of right rotator cuff, initial encounter Procedures CONSULT TO PHYSICAL THERAPY PHYSICAL THERAPY EVALUATION [facility] [address] [place] [address] [place] [address] [facility] [place] [address] Referral IDStatusRichardHoly [place] DateExpiration DateVisits RequestedVisits [id number] PCP Requested Referral Auto-Generated Referral /[id number] / ProceduresReferred By ContactReferred To Contact Diagnoses Physical deconditioning Procedures CARD PREV EXERCISE PRESCRIPTION OFFICE/OUTPATIENT [facility] 60-74 MINUTES Juan F Mckinney MD [address] [place] [address] Referral IDStatusReasonHoly [place] DateExpiration DateVisits RequestedVisits [id number] PCP Requested Referral / Medications Administered Section Medication OrderMAR ActionAction DateDoseRateSite lidocaine (PF) 10 mg/mL (1 %) 8 mL injection (XYLOCAINE) 8 mL, Injection - FOR ORTHO USE ONLY, ONE TIME INJECTION, 1 dose, Starting on Sat07/08/23 at 1102, Until Sat07/08/23 at 1102 Given07/08/2023 11:02 AM EDT8 mLShoulder, Right triamcinolone acetonide 80 mg injection (KeNALog 40) 80 mg, Injection - FOR ORTHO USE ONLY, ONE TIME INJECTION, 1 dose, Starting on Sat07/08/23 at 1102,Until Sat07/08/23 at 1102 Given07/08/2023 11:02 AM EDT80 mgShoulder, Right Summary Purpose Family History No Family History Records Found Chief Complaint and Reason for Visit Chief Complaint Admit Date M25.511 - Pain in right shoulder March 6:17am NEW RT SHOULDER & RT HIP PAIN NX March 10:53am Reason for Visit Admit Date 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 April 22, 2025 10:53am Rotator cuff syndrome of right shoulder April 22, 2025 10:53am Chief Complaint Admit Date Greater troch pain R LE May 12, 2025 1:45pm Additional Source Comments Source Comments (unrecognize d section and content) In the event this informatio n is protected by the Federal Confidentiality of Alcohol and Drug Abuse Patient Records regulations: The Federal rules restrict any use of the information to criminally investigate or prosecute any alcohol or drug abuse patient.[facility] the event this information is protected by the Federal Confidentiality of Alcohol and Drug Abuse Patient Records regulations: The Federal rules restrict any use of the information to criminally investigate or prosecute any alcohol or drug abuse patient.[facility] HospitalIn the event this information is protected by the Federal Confidentiality of Alcohol and Drug Abuse Patient Records regulations: The Federal rules restrict any use of the information to criminally investigate or prosecute any alcohol or drug abuse patient.[facility] HospitalIn the event this information is protected by the Federal Confidentiality of Alcohol and Drug Abuse Patient Records regulations: The Federal rules restrict any use of the information to criminally investigate or prosecute any alcohol or drug abuse patient.[facility] HospitalIn the event this information is protected by the Federal Confidentiality of Alcohol and Drug Abuse Patient Records regulations: The Federal rules restrict any use of the information to criminally investigate or prosecute any alcohol or drug abuse patient.[facility] HospitalIn the event this information is protected by the Federal Confidentiality of Alcohol and Drug Abuse Patient Records regulations: The Federal rules restrict any use of the information to criminally investigate or prosecute any alcohol or drug abuse patient.[facility] HospitalIn the event this information is protected by the Federal Confidentiality of Alcohol and Drug Abuse Patient Records regulations: The Federal rules restrict any use of the information to criminally investigate or prosecute any alcohol or drug abuse patient.[facility] HospitalIn the event this information is protected by the Federal Confidentiality of Alcohol and Drug Abuse Patient Records regulations: The Federal rules restrict any use of the information to criminally investigate or prosecute any alcohol or drug abuse patient.[facility] HospitalIn the event this information is protected by the Federal Confidentiality of Alcohol and Drug Abuse Patient Records regulations: The Federal rules restrict any use of the information to criminally investigate or prosecute any alcohol or drug abuse patient.[facility] HospitalIn the event this information is protected by the Federal Confidentiality of Alcohol and Drug Abuse Patient Records regulations: The Federal rules restrict any use of the information to criminally investigate or prosecute any alcohol or drug abuse patient.[facility] HospitalIn the event this information is protected by the Federal Confidentiality of Alcohol and Drug Abuse Patient Records regulations: The Federal rules restrict any use of the information to criminally investigate or prosecute any alcohol or drug abuse patient.[facility] HospitalIn the event this information is protected by the Federal Confidentiality of Alcohol and Drug Abuse Patient Records regulations: The Federal rules restrict any use of the information to criminally investigate or prosecute any alcohol or drug abuse patient.[facility] HospitalIn the event this information is protected by the Federal Confidentiality of Alcohol and Drug Abuse Patient Records regulations: The Federal rules restrict any use of the information to criminally investigate or prosecute any alcohol or drug abuse patient.[facility] HospitalIn the event this information is protected by the Federal Confidentiality of Alcohol and Drug Abuse Patient Records regulations: The Federal rules restrict any use of the information to criminally investigate or prosecute any alcohol or drug abuse patient.[facility] HospitalIn the event this information is protected by the Federal Confidentiality of Alcohol and Drug Abuse Patient Records regulations: The Federal rules restrict any use of the information to criminally investigate or prosecute any alcohol or drug abuse patient.[facility] HospitalIn the event this information is protected by the Federal Confidentiality of Alcohol and Drug Abuse Patient Records regulations: The Federal rules restrict any use of the information to criminally investigate or prosecute any alcohol or drug abuse patient.[facility] HospitalIn the event this information is protected by the Federal Confidentiality of Alcohol and Drug Abuse Patient Records regulations: The Federal rules restrict any use of the information to criminally investigate or prosecute any alcohol or drug abuse patient.[facility] HospitalIn the event this information is protected by the Federal Confidentiality of Alcohol and Drug Abuse Patient Records regulations: The Federal rules restrict any use of the information to criminally investigate or prosecute any alcohol or drug abuse patient.[facility] HospitalIn the event this information is protected by the Federal Confidentiality of Alcohol and Drug Abuse Patient Records regulations: The Federal rules restrict any use of the information to criminally investigate or prosecute any alcohol or drug abuse patient.[facility] HospitalIn the event this information is protected by the Federal Confidentiality of Alcohol and Drug Abuse Patient Records regulations: The Federal rules restrict any use of the information to criminally investigate or prosecute any alcohol or drug abuse patient.[facility] HospitalIn the event this information is protected by the Federal Confidentiality of Alcohol and Drug Abuse Patient Records regulations: The Federal rules restrict any use of the information to criminally investigate or prosecute any alcohol or drug abuse patient.[facility] HospitalIn the event this information is protected by the Federal Confidentiality of Alcohol and Drug Abuse Patient Records regulations: The Federal rules restrict any use of the information to criminally investigate or prosecute any alcohol or drug abuse patient.[facility] HospitalIn the event this information is protected by the Federal Confidentiality of Alcohol and Drug Abuse Patient Records regulations: The Federal rules restrict any use of the information to criminally investigate or prosecute any alcohol or drug abuse patient.[facility] HospitalIn the event this information is protected by the Federal Confidentiality of Alcohol and Drug Abuse Patient Records regulations: The Federal rules restrict any use of the information to criminally investigate or prosecute any alcohol or drug abuse patient.[facility] HospitalIn the event this information is protected by the Federal Confidentiality of Alcohol and Drug Abuse Patient Records regulations: The Federal rules restrict any use of the information to criminally investigate or prosecute any alcohol or drug abuse patient.[facility] HospitalIn the event this information is protected by the Federal Confidentiality of Alcohol and Drug Abuse Patient Records regulations: The Federal rules restrict any use of the information to criminally investigate or prosecute any alcohol or drug abuse patient.[facility] HospitalIn the event this information is protected by the Federal Confidentiality of Alcohol and Drug Abuse Patient Records regulations: The Federal rules restrict any use of the information to criminally investigate or prosecute any alcohol or drug abuse patient.[facility] HospitalIn the event this information is protected by the Federal Confidentiality of Alcohol and Drug Abuse Patient Records regulations: The Federal rules restrict any use of the information to criminally investigate or prosecute any alcohol or drug abuse patient.[facility] HospitalIn the event this information is protected by the Federal Confidentiality of Alcohol and Drug Abuse Patient Records regulations: The Federal rules restrict any use of the information to criminally investigate or prosecute any alcohol or drug abuse patient.[facility] HospitalIn the event this information is protected by the Federal Confidentiality of Alcohol and Drug Abuse Patient Records regulations: The Federal rules restrict any use of the information to criminally investigate or prosecute any alcohol or drug abuse patient.[facility] HospitalIn the event this information is protected by the Federal Confidentiality of Alcohol and Drug Abuse Patient Records regulations: The Federal rules restrict any use of the information to criminally investigate or prosecute any alcohol or drug abuse patient.[facility] HospitalIn the event this information is protected by the Federal Confidentiality of Alcohol and Drug Abuse Patient Records regulations: The Federal rules restrict any use of the information to criminally investigate or prosecute any alcohol or drug abuse patient.[facility] HospitalIn the event this information is protected by the Federal Confidentiality of Alcohol and Drug Abuse Patient Records regulations: The Federal rules restrict any use of the information to criminally investigate or prosecute any alcohol or drug abuse patient.[facility] HospitalIn the event this information is protected by the Federal Confidentiality of Alcohol and Drug Abuse Patient Records regulations: The Federal rules restrict any use of the information to criminally investigate or prosecute any alcohol or drug abuse patient.[facility] HospitalIn the event this information is protected by the Federal Confidentiality of Alcohol and Drug Abuse Patient Records regulations: The Federal rules restrict any use of the information to criminally investigate or prosecute any alcohol or drug abuse patient.[facility] HospitalIn the event this information is protected by the Federal Confidentiality of Alcohol and Drug Abuse Patient Records regulations: The Federal rules restrict any use of the information to criminally investigate or prosecute any alcohol or drug abuse patient.[facility] HospitalIn the event this information is protected by the Federal Confidentiality of Alcohol and Drug Abuse Patient Records regulations: The Federal rules restrict any use of the information to criminally investigate or prosecute any alcohol or drug abuse patient.[facility] Reason for Visit (unrecogniz ed section and content) ReasonOnset DateCommentsRefill Vydrkjf70/26/2022ReasonCommentsRadiology MD SpecialtyDiagnoses / ProceduresReferred By ContactReferred To ContactMOLECULAR & FUNCTIONAL IMAGING Diagnoses Precordial pain Procedures NM CARDIAC PERF STRESS/EXERCISE MYOCARDIAL SPECT MULTIPLE STUDIES Todd Nunn MD [address] [place] [address] Molecular & Functional Imaging [address] [place] [address] Referral IDStatusReasonStart DateExpiration DateVisits RequestedVisits [id number] Auto-Generated Referral /[id number] OrdersGet labs done?ReasonCommentsFollow Up 6 mths f/uReasonCommentsRefill RequestReasonOnset DateCommentsRefill Request 2ReasonCommentsAppointmentReasonCommentsConsultSelf referringReceived Outside Medical RecordsReasonCommentsChest PainReasonCommentsRadiology NM SpecialtyDiagnoses / ProceduresReferred By ContactReferred To ContactMOLECULAR & FUNCTIONAL IMAGING Diagnoses Chest pain, unspecified type Procedures NM CARDIAC PERF STRESS/PHARM MYOCARDIAL SPECT MULTIPLE STUDIES Todd Nunn MD [address] [place] [address] Molecular & Functional Imaging [address] [place] [address] Referral IDStatusReasonStart DateExpiration DateVisits RequestedVisits [id number] Auto-Generated Referral [id number] UpReasonCommentsExercise Prescription SpecialtyDiagnoses / ProceduresReferred By ContactReferred To Contact Diagnoses Physical deconditioning Procedures CARD PREV EXERCISE PRESCRIPTION OFFICE/OUTPATIENT [facility] 60-74 MINUTES Juan F Mckinney MD [address] [id number] Referral IDStatusReasonStart DateExpiration DateVisits RequestedVisits [id number] PCP Requested Referral /[id number] QuestionAny additional testing?Reason CommentsMedication QuestionReasonCommentsNewPainNumbnessReasonOnset DateComments Refill Nccbmzm5607/15/2023ReasonCommentsHyperlipidemiaReasonOnset DateComments Refill Lgsitgc0611/11/2023ReasonCommentsHyperlipidemiaReasonCommentsPatient QuestionReasonCommentsFollow UpReasonCommentsDry Eye Syndrome Evaluation SpecialtyDiagnoses / ProceduresReferred By ContactReferred To Contact [facility] Diagnoses Dry eye Procedures CONSULT TO OPHTHALMOLOGY OFFICE/OUTPATIENT [facility] 60 MINUTES Alexis Lott PA-C [address] [place] [address] [facility] [place] [address] [place] [address] Referral IDStatusReasonStart DateExpiration DateVisits RequestedVisits [id number] PCP Requested Referral [id number] TAKENReasonCommentsOrdersReasonOnset DateCommentsRefill Zsscewp0501/05/2025ReasonOnset DateCommentsRefill Request 04/12/2025ReasonCommentsConsult Care Teams (unrecognized sec tion and content) Team Status: Active Member Role Status Dates Onel Isaacs MD Primary Care Provider Active Team Status: Inactive Member Role Status Dates Onel Isaacs MD Primary Care Provider Active Start: April 22, 2025 End: April 22, 2025Suzette Lao ProviderActiveStart: April 22, 2025 End: April 22, 2025Team MemberRelationshipSpecialtyStart DateEnd Date Onel Isaacs MD [address] [place] [address] PCP - General03/07/01 eKnyatta Dumont ReferringCardiology05/29/18 Juan F Mckinney MD Primary Staff PhysicianCardiology05/10/20Team MemberRelationshipSpecialtyStart DateEnd Date Onel Isaacs MD [address] [place] [address] PCP - General03/07/01 Tim Rayrayashely ReferringCardiology05/29/18 Juan F Mckinney MD Primary Staff PhysicianCardiology05/10/20Team MemberRelationshipSpecialtyStart DateEnd Date Onel Isaacs MD [address] [place] [address] PCP - General03/07/01 Kenyatta Dumont ReferringCardiology05/29/18 Juan F Mckinney MD Primary Staff PhysicianCardiology05/10/20Team MemberRelationshipSpecialtyStart DateEnd Date Onel Isaacs MD [address] [place] [address] PCP - General03/07/01 Kenyatta Dumont ReferringCardiology05/29/18 Juan F Mckinney MD Primary Staff PhysicianCardiology05/10/20Team MemberRelationshipSpecialtyStart DateEnd Date Onel Isaacs MD [address] [place] [address] PCP - General03/07/01 Kenyatta Dumont ReferringCardiology05/29/18 Juan F Mckinney MD Primary Staff PhysicianCardiology05/10/20Team MemberRelationshipSpecialtyStart DateEnd Date Onel Isaacs MD [address] [facility] [place] [address] PCP - General03/07/01 [facility] [address] [facility] [place] [address] ReferringCardiology05/29/18 Juan F Mckinney MD [address] [facility] [place] [address] Primary Staff PhysicianCardiology05/10/20Team MemberRelationshipSpecialtyStart DateEnd Date Onel Isaacs MD [address] [facility] [place] [address] PCP - General03/07/01 [facility], [facility] [address] [facility] [place] [address] ReferringCardiology05/29/18 Juan F Mckinney MD [address] [facility] [place] [address] Primary Staff PhysicianCardiology05/10/20Team MemberRelationshipSpecialtyStart DateEnd Date Onel Isaacs MD [address] [facility] [place] [address] PCP - General03/07/01 [facility] [address] [facility] [place] [address] ReferringCardiology05/29/18 Juan F Mckinney MD [address] [facility] [place] [address] Primary Staff PhysicianCardiology05/10/20Team MemberRelationshipSpecialtyStart DateEnd Date Onel Isaacs MD [address] [facility] [place] [address] PCP - General03/07/01 [facility] [address] [facility] [place] [address] ReferringCardiology05/29/18 Juan F Mckinney MD [address] [facility] [place] [address] Primary Staff PhysicianCardiology05/10/20Team MemberRelationshipSpecialtyStart DateEnd Date Onel Isaacs MD [address] [facility] [place] [address] PCP - General03/07/01 [facility] [address] [facility] [place] [address] ReferringCardiology05/29/18 Juan F Mckinney MD [address] [facility] [place] [address] Primary Staff PhysicianCardiology05/10/20 Onel Isaacs MD [address] [facility] [place] [address] ReferringFamily Medicine01/08/23Team MemberRelationshipSpecialtyStart DateEnd Date Onel Isaacs MD [address] [facility] [place] [address] PCP - General03/07/01 [facility] [address] [facility] [place] [address] ReferringCardiology05/29/18 Juan F Mckinney MD [address] [facility] [place] [address] Primary Staff PhysicianCardiology05/10/20 Onel Isaacs MD [address] [facility] [place] [address] ReferringFatempleton developmental center Medicine01/08/23Team MemberRelationshipSpecialtyStart DateEnd Date Onel Isaacs MD [address] [facility] [place] [address] PCP - General03/07/01 Tim [facility] [address] [facility] [place] [address] ReferringCardiology05/29/18 Juan F Mckinney MD [address] [facility] [place] [address] Primary Staff PhysicianCardiology05/10/20 Onel Isaacs MD [address] [facility] [place] [address] ReferringFatempleton developmental center Medicine01/08/23Te MemberRelationshipSpecialtyStart DateEnd Date Onel Isaacs MD [address] [place] [facility] [place] [address] PCP - General03/07/01 [facility] [address] [place] [facility] [place] [address] ReferringCardiology05/29/18 Juan F Mckinney MD [address] [place] [facility] [place] [address] Primary Staff PhysicianCardiology05/10/20 Onel Isaacs MD [address] [place] [facility] [place] [address] ReferringFami Medicine01/08/23Te MemberRelationshipSpecialtyStart DateEnd Date Onel Isaacs MD [address] [place] [facility] [place] [address] PCP - General03/07/01 gilma [facility] [address] [place] [facility] [place] [address] ReferringCardiology05/29/18 Juan F Mckinney MD [address] [place] [facility] [place] [address] Primary Staff PhysicianCardiology05/10/20 Onel Isaacs MD [address] [place] [facility] [place] [address] ReferringFami Medicine01/08/23Te MemberRelationshipSpecialtyStart DateEnd Date Onel Isaacs MD [address] [place] [facility] [place] [address] PCP - General03/07/01 Garciagilma [facility] [address] [place] [facility] [place] [address] ReferringCardiology05/29/18 Juan F Mckinney MD [address] [place] [facility] [place] [address] Primary Staff PhysicianCardiology05/10/20 Onel Isaacs MD [address] [place] [facility] [place] [address] ReferringFami Medicine01/08/23Te MemberRelationshipSpecialtyStart DateEnd Date Onel Isaacs MD [address] [place] [facility] [place] [address] PCP - General03/07/01 Kenyatta Dumont [address] [place] [facility] [place] [address] ReferringCardiology05/29/18 Juan F Mckinney MD [address] [place] [facility] [place] [address] Primary Staff PhysicianCardiology05/10/20 Onel Isaacs MD [address] [place] [facility] [place] [address] ReferringFatempleton developmental center Medicine01/08/23Te MemberRelationshipSpecialtyStart DateEnd Date Onel Isaacs MD [address] [place] [facility] [place] [address] PCP - General03/07/01 Tim Rayraymatt [address] [place] [facility] [place] [address] ReferringCardiology05/29/18 Juan F Mckinney MD [address] [place] [facility] [place] [address] Primary Staff PhysicianCardiology05/10/20 Onel Isaacs MD [address] [place] [facility] [place] [address] ReferringFatempleton developmental center Medicine01/08/23Te MemberRelationshipSpecialtyStart DateEnd Date Onel Isaacs MD [address] [place] [facility] [place] [address] PCP - General03/07/01 Kenyatta Dumont [address] [place] [facility] [place] [address] ReferringCardiology05/29/18 Juan F Mckinney MD [address] [place] [facility] [place] [address] Primary Staff PhysicianCardiology05/10/20 Onel Isaacs MD [address] [place] [facility] [place] [address] ReferringFamily Medicine01/08/23 Onel Isaacs MD [address] [place] [facility] [place] [address] ReferringFamily Medicine06/19/23Team MemberRelationshipSpecialtyStart DateEnd Date Onel Isaacs MD [address] [place] [facility] [place] [address] PCP - General03/07/01 Kenyatta Dumont [address] [place] [facility] [place] [address] ReferringCardiology05/29/18 Juan F Mckinney MD [address] [place] [facility] [place] [address] Primary Staff PhysicianCardiology05/10/20 Onel Isaacs MD [address] [place] [facility] [place] [address] ReferringFamily Medicine01/08/23 Onel Isaacs MD [address] [place] [facility] [place] [address] ReferringFamily Medicine06/19/23Team MemberRelationshipSpecialtyStart DateEnd Date Onel Isaacs MD [address] [place] [facility] [place] [address] PCP - General03/07/01 Kenyatta Dumont [address] [place] [facility] [place] [address] ReferringCardiology05/29/18 Juan F Mckinney MD [address] [place] [facility] [place] [address] Primary Staff PhysicianCardiology05/10/20 Onel Isaacs MD [address] [place] [facility] [place] [address] ReferringFamily Medicine01/08/23 Onel Isaacs MD [address] [place] [facility] [place] [address] ReferringFami Medicine06/19/23Team MemberRelationshipSpecialtyStart DateEnd Date Onel Isaacs MD [address] [place] [facility] [place] [address] PCP - General03/07/01 Kenyatta Dumont [address] [place] [facility] [place] [address] ReferringCardiology05/29/18 Juan F Mckinney MD [address] [place] [facility] [place] [address] Primary Staff PhysicianCardiology05/10/20 Onel Isaacs MD [address] [place] [facility] [place] [address] ReferringFamily Medicine01/08/23 Onel Isaacs MD [address] [place] [facility] [place] [address] ReferringFamily Medicine06/19/23Team MemberRelationshipSpecialtyStart DateEnd Date Onel Isaacs MD [address] [place] [facility] [place] [address] [facility]03/07/01 Tim Rayraymatt [address] [place] [facility] [place] [address] ReferringCardiology05/29/18 Juan F Mckinney MD [address] [place] [facility] [place] [address] Primary Staff PhysicianCardiology05/10/20 Onel Isaacs MD [address] [place] [facility] [place] [address] ReferringFami Medicine01/08/23 Onel Isaacs MD [address] [facility] [place] [address] ReferringFamily Medicine06/19/23Te MemberRelationshipSpecialtyStart DateEnd Date Onel Isaacs MD [address] [facility] [place] [address] PCP - General03/07/01 Kenyatta Dumont [address] [facility] [place] [address] ReferringCardiology05/29/18 Juan F Mckinney MD [address] [facility] [place] [address] Primary Staff PhysicianCardiology05/10/20 Onel Isaacs MD [address] [facility] [place] [address] ReferringFamily Medicine01/08/23 Onel Isaacs MD [address] [facility] [place] [address] ReferringFamily Medicine06/19/23Te MemberRelationshipSpecialtyStart DateEnd Date Onel Isaacs MD [address] [facility] [place] [address] PCP - General03/07/01 Kenyatta Dumont [address] [facility] [place] [address] ReferringCardiology05/29/18 Juan F Mckinney MD [address] [facility] [place] [address] Primary Staff PhysicianCardiology05/10/20 Onel Isaacs MD [address] [facility] [place] [address] ReferringFamily Medicine01/08/23 Onel Isaacs MD [address] [facility] [place] [address] ReferringFamily Medicine06/19/23Team MemberRelationshipSpecialtyStart DateEnd Date Onel Isaacs MD [address] [place] [address] [facility]03/07/01 Kenyatta Dumont [address] [facility] [place] [address] ReferringCardiology05/29/18 [place] [address] [place] [address], [place] [address] Primary Staff PhysicianCardiology05/10/20 Onel Isaacs MD [address] [place] [address] ReferringFamily Medicine01/08/23 Onel Isaacs MD [address] [facility] [place] [address] ReferringFamily Medicine06/19/23Team MemberRelationshipSpecialtyStart DateEnd Date Onel Isaacs MD [address] [facility] [place] [address] PCP - General03/07/01 Garciagilma Rayraymatt [address] [facility] [place] [address] ReferringCardiology05/29/18 Juan F Mckinney MD [address] [facility] [place] [address] Primary Staff PhysicianCardiology05/10/20 Onel Isaacs MD [address] [facility] [place] [address] ReferringFamily Medicine01/08/23 Onel Isaacs MD [address] [facility] [place] [address] ReferringFamily Medicine06/19/23Team MemberRelationshipSpecialtyStart DateEnd Date Onel Isaacs MD [address] [facility] [place] [address] PCP - General03/07/01 Garciagilma Rayraymatt [address] [facility] [place] [address] ReferringCardiology05/29/18 Juan F Mckinney MD [address] [facility] [place] [address] Primary Staff PhysicianCardiology05/10/20 Onel Isaacs MD [address] [facility] [place] [address] ReferringFamily Medicine01/08/23 Onel Isaacs MD [address] [facility] [place] [address] ReferringFamily Medicine06/19/23Team MemberRelationshipSpecialtyStart DateEnd Date Onel Isaacs MD [address] [facility] [place] [address] PCP - General03/07/01 Kenyatta Dumont [address] [facility] [place] [address] ReferringCardiology05/29/18 Juan F Mckinney MD [address] [facility] [place] [address] Primary Staff PhysicianCardiology05/10/20 Onel Isaacs MD [address] [facility] [place] [address] ReferringFamily Medicine01/08/23 Onel Isaacs MD [address] [facility] [place] [address] ReferringFamily Medicine06/19/23Team MemberRelationshipSpecialtyStart DateEnd Date Onel Isaacs MD [address] [facility] [place] [address] PCP - GeneralFamily Medicine06/20/23Team MemberRelationshipSpecialtyStart DateEnd Date Onel Isaacs MD [address] [facility] [place] [address] PCP - General03/07/01 Kenyatta Dumont [address] [facility] [place] [address] ReferringCardiology05/29/18 Juan F Mckinney MD [address] [place] [address] Primary Staff PhysicianCardiology05/10/20 Onel Isaacs MD [address] [place] [address] ReferringFamily Medicine01/08/23 Onel Isaacs MD [facility] [place] [address] ReferringFamily Medicine06/19/23Team MemberRelationshipSpecialtyStart DateEnd Date Onel Isaacs MD [address] [address], [place] [address] [facility] - General03/07/01 Kenyatta Dumont [address] [place] [address] ReferringCardiology05/29/18 Juan F Mckinney MD [address] [place] [address] Primary Staff PhysicianCardiology05/10/20 Onel Isaacs MD [address] [place] [address] ReferringFamily Medicine01/08/23 Onel Isaacs MD [address] [place] [address] ReferringFamily Medicine06/19/23Team MemberRelationshipSpecialtyStart DateEnd Date Onel Isaacs MD [address] [facility] [place] [address] PCP - General03/07/01 Kenyatta Dumont [address] [facility] [place] [address] ReferringCardiology05/29/18 Juan F Mckinney MD [address] [facility] [place] [address] Primary Staff PhysicianCardiology05/10/20 Onel Isaacs MD [address] [facility] [place] [address] ReferringFamily Medicine01/08/23 Onel Isaacs MD [address] [facility] [place] [address] ReferringFamily Medicine06/19/23Team MemberRelationshipSpecialtyStart DateEnd Date Onel Isaacs MD [address] [facility] [place] [address] PCP - General03/07/01 Kenyatta Dumont [address] [facility] [place] [address] ReferringCardiology05/29/18 Juan F Mckinney MD [address] [facility] [place] [address] Primary Staff PhysicianCardiology05/10/20 Onel Isaacs MD [address] [facility] [place] [address] ReferringFami Medicine01/08/23 Onel Isaacs MD [address] [facility] [place] [address] ReferringFamily Medicine06/19/23 Team Status: Active Member Role Status Dates Onel Isaacs MD Primary Care Provider Active Start: April 22, 2025 Suzette Lao ProviderActiveStart: April 22, 2025 Team MemberRelationshipSpecialtyStart DateEnd Date Onel Isaacs MD [facility] [facility] [place] [address] PCP - General03/07/01 Kenyatta Dumont [address] [place] [address], [place] [address] ReferringCardiology05/29/18 Juan F Mckinney MD [address] [place] [address], [place] [address] Primary Staff PhysicianCardiology05/10/20 Onel Isaacs MD [address] [facility] [place] [address] ReferringFami Medicine01/08/23 Onel Isaacs MD [address] [facility] [place] [address] ReferringFami Medicine06/19/23Team MemberRelationshipSpecialtyStart DateEnd Date Onel Isaacs MD [facility] [place] [address] PCP - General03/07/01 Kenyatta Dumont [address] [place] [address] ReferringCardiology05/29/18 Juan F Mckinney MD [address] [place] [address] Primary Staff PhysicianCardiology05/10/20 Onel Isaacs MD [address] [place] [address] ReferringFamily Medicine01/08/23 Onel Isaacs MD [address] [place] [address] ReferringFamily Medicine06/19/23 Team Status: Inactive Member Role Status Dates Onel Isaacs MD Primary Care Provider Active Start: May 12, 2025 End: May 12, 2025Joo Morrell DOAttending ProviderActiveStart: May 12, 2025 End: May 12, 2025 (unrecognized sect ion and content) No Status Records FoundNo Status Records FoundNo Status Records FoundNo Status Records Found INFORMATION SOURCE (unrecogn ized section and content) DATE CREATED AUTHOR 08/16/2024 [facility] DATE CREATED AUTHOR AUTHOR'S ORGANIZ ATION 01/26/2025 [facility] DATE CREATED AUTHOR AUTHOR'S ORGANIZ ATION 06/19/2025 [facility] DATE CREATED AUTHOR AUTHOR'S ORGANIZ ATION 08/07/2025 [facility] Goals (unrecognized section and content) Goals may be documented in a n alternate section FOR RECORDS PERTAINING TO PATIENTS WHO ARE [...] BE BASED ON THE PRIMARY CLINICAL RECORDS. [facility]. provides no warranty or guarantee of the accuracy or completeness of information in this document.
--- NOTE | 2025-10-01 09:39 | PC.NURSE ---
Nursing Note Cardiac Stress Test Reviewed: Medication, allergies and patient history reviewed. Stress Test: [x ] Patient tolerated stress test well. [ ] Patient unable to tolerate walking on treadmill. Switched to Lexiscan stress test. [ ] No chest pain noted per patient [x ] Chest pain that resolved prior to leaving stress lab. [ ] No dyspnea noted. [x ] Dyspnea that resolved prior to leaving stress lab. [x ] Patient left stress lab asymptomatic and hemodynamically stable. [ ] Patient taken to the Emergency Room due to non-resolving symptoms following stress test. [x ] Patient achieved target heart rate. [ ] Patient unable to achieve target heart rate. [ ] Aminophylline administered as reversal agent to Lexiscan (Regadenoson). [ ] Nitro administered. Nursing Comments:Pt had Cardiolite test done. Pt had chest pain that was worse then he has had in the past that lasted about 2 seconds and then went away. Pain did not return pt left stress lab and ambulated to cafeteria for breakfast with no symptoms. I talked with Dr. Denny from [place] about pt and she states she will read stress and images once they are done.
--- NOTE | 2025-10-01 12:32 | P.STRESS_ITS ---
Stress Test Stress Test Allergies Allergy/AdvReac Type Severity Reaction Status Date / Time lisinopril Allergy itching, Verified 06/06/23 14:33 cough Requesting physician: Aniceto Pearl Procedure: Treadmill nuclear stress test General Information: Reason for Stress Test: [Chest pain] Cardiac History and Risk Factors: [History of coronary artery disease and CABG and stents, hypertension, hyperlipidemia] Resting 12 - Lead Electrocardiogram: Resting twelve-lead EKG showed normal sinus rhythm, heart rate 62 bpm, left axis deviation, possible prior anterior infarct, nonspecific T wave changes. Resting blood pressure 150/96. The patient was exercised according to standard Anastacio protocol and he was able to finish 6 minutes and 13 seconds of exercise consistent with stage III, achieving 7.6 METS and max heart rate of 139 bpm which represents 98% of age- predicted maximum heart rate, peak blood pressure 178/100 mmHg. Exercise was terminated secondary to achievement of target heart rate. The patient had a very brief chest pain during that test lasted only 3 seconds. The patient was monitored for a total of 6 minutes into recovery phase with heart rate back to 76 bpm and blood pressure to 146/86 mmHg. EKG during exercise and at peak exercise showed the mild less 1 than [address] depression in inferior leads and leads V5 and V6 which resolved immediately during recovery. Stress Test: Protocol: [6] Exercise Capacity: [Above average] Blood Pressure Response: [Resting hypertension with hypertensive response to exercise] Rhythm: [No arrhythmia] ST - Response: [Mild less than [address] depression] Patient Response: [Atypical chest pain for 3 seconds l] Interpretation: Maximal stress test achieving 98 % of age-predicted maximum heart rate Above average exercise tolerance Normal heart rate and blood pressure response to exercise This EKG stress test is negative for exercise-induced ischemic EKG changes or arrhythmias. He had very brief chest pain lasting 3 seconds with exercise which is atypical The myocardial perfusion nuclear stress images result is reported separately Radha Denny MD, FACC
== END 2025-10-01 08:25 | disposition home or self-care (01) ==
LOC: NM 08:24
PROVIDERS: PCP Family Medicine; Visit Provider Family Medicine
DX: R07.9 Chest pain, unspecified (principal)
CPT/HCPCS: 78452; 93017; A9500

== ENCOUNTER 2025-10-08 07:46 | Outpatient (OUT) | payer MEDICARE, OTHER, SELFPAY ==
--- OUTSIDE RECORDS SUMMARY | 2025-10-05 04:45 | XMS_ITS ---
Author Organization The [facility] in [place] Address [address] [place] [address] Care Team Providers Care Crate Opener Name Role Phone Edwin Pearl Primary Care Provider [phone] Allergies Allergen (clinical drug ingredient) Drug/Non Drug Allergy documented on EMR Reaction Allergy Type Onset Date Status dust (uncoded)UnknownAllergyActivePollenpollens (uncoded)UnknownAllergyActive lisinoprilLisinoprilUnknownDrug AllergyActive REASON FOR VISIT possible AFIB Medications Medication SIG (Take, Route, Frequency, Duration) Notes Start Date End Date Status Simvastatin 20 MG 1 tablet in the evening Orally Once a day; Duration: 90 days 10/01/2024ctivetiZANidine HCl 4 MG2 tablets Orally at bedtime; Duration: 01/07/2024ctiveSoma 350 MG1 tablet as needed Orally bid; Duration: 30 days 01/06/2024ctiveVitamin D3 50 MCG (2000 UT)1 capsule Orally Once a dayActive Prostate SupportActiveLasix 20 MG1 tablet Orally Once a day; Duration: 90 days 06/08/2024ctiveMetoprolol Succinate 50 MG1 capsule Orally [facility] a day[facility] addedActiveM-Vit Multiple Vitamins with Minerals1 tablet DAILY ActivePepcid 40 MG1 tablet Orally bid; Duration: 14 days08/04/2025tivecalcium citrate2 capsules orally BID11/25/18999738YnszypT01 Fast Dissolve 5000 MCG1 tablet Orally DailyActiveFerrous Sulfate 325 (65 Fe) MG1 tablet Orally BID10/01/2024 CqmblfKtA32IcmzahEthryycbtt 300 MG1 tablet Orally Once a dayActiveAspirin 81 81 MG1 tablet Orally Once a dayActive Social History Tobacco Use: Social History Observation Description Date Details (start date - stop date) Former Smoker 11/25/1964 - 11/25/1990 Tobacco Use/Smoking Question Answer Notes Patient is a former smoker When did you start smoking?11/25/1964When did you stop smoking?11/25/1990How long has it been since you last smoked?> 10 years Problems Problem Type SNOMED Code ICD Code Onset Dates Problem Status W/U Status Risk Notes Problem Palpitations (82710832) Palpitation (R00. 2) Activeconfirmed Vital Signs Weight 193.0 lbs 10/05/2025 Height 70 in 10/05/2025 Blood pressure systolic 152 mm Hg 10/05/20 25 Blood pressure diastolic 62 mm Hg 025 BMI 27.69 kg/m2 10/05/2025 Procedures Procedure Date Ordered Date Performed Result Body Sit e Holter Monitor - 3 days up to 14 days 10/05/2025 N/A Encounters Encounter Location Date Provider Diagnosis [facility] [address] [place] [address] 10/05/2025 Edwin Paerl Hypertension I10 and Palpitation R00.2 Assessments Encounter Date Diagnosis (ICD Code) Assessment Notes Treatment Notes Treatment Clinical Notes Section Notes 10/05/2025 Hypertension (ICD-10 - I10) 10/05/2025Palpitation (ICD-10 - R00.2) Plan Of Treatment Pending Test Test Name Order Date Holter Monitor - 3 days up to 14 days Procedure Notes * CategorySub-CategoryDetailNotesEKG w/InterpInterpretation:NSR - mild 1st degree avb Progress Notes * Wally WOODALL ADOB:1945 (80 yo M)Acc No.[id number]:10/05/2025 Progress Note Patient: Wally ZAVALETA :?Aniceto Pearl ([facility]), MDDOB:1945???Age: 80 Y???Sex:MaleDate:10/05/2025Phone:[phone]:[address], [facility]-[id number] In:09:29 AM José Miguel Out:10:32 AM MARY Subjective: * Chief Complaints: * p ossible AFIB * HPI: ???General:? Fels like has been in a-0fib -? feels different than hi pvc's. * ROS: ???EENT:?hearing changes?denies.?visual changes?denies. non-healing mouth sores?denies.?swollen glands or neck lumps?denies.?hoarseness?denies.?sore throat?denies.?difficulty swallowing?denies.?nose bleeds?denies.?nasal congestion?denies.?ear ache?denies.?ear discharge denies.?ringing in ears?denies.?light sensitivity?denies.?eye pain?denies.?blurring?denies.?eye irritation?denies.?double vision?denies. vision loss?denies.?General/Constitutional:?Sweats:?Denies.?Fatigue?denies.?Sleep proble ms?denies.?Anorexia?denies.?Malaise?denies.?Weight loss?denies. Fatigue or Weakness?denies.?Fever or Chills?denies.?Cardiovascular:?Shortness of Breath w/lying flat?denies.?Lightheadedne ss/dizziness?denies.?Chest tightness/ heavy pressure?denies.?Swelling of legs, a nkles, or feet?denies.?Waking up with shortness of breath?denies.?Chest pain&#16 0;denies.?Palpitations?denies.?Weight gain?denies.?Respiratory:?Chronic or frequent cough?denies.?Coughing up blood&#1 60;denies.?Difficulty breathing?denies.?Productive cough?denies.?Snoring&#1 60;denies.?Shortness of breath that awakens from sleep (PND)?denies.?Chest pain? denies.?Sputum production?denies.?Wheezing?denies.?Musculoskeletal:?Joint pain?denies.?Joint Fluid?denies.?Backpain?denies.?Knee pain?denies.?Neck pain?denies.?Joint Stiffness?denies.?Muscle cramps?denies.?Weakness of muscles?denies.?Arthritis?denies.?Muscle aches?denies.?Pain in shoulder(s)?denies.?Swollen joints?denies.? * Active Problem List H53.2 Diplopia Modified On:03/08/2023 Status:enofoxrsjV63.1Chronic obstructive pulmonary disease with (acute) exacerbation Modified On:03/08/2023 Status:ifwfmzpwoP81Qsonvdan Modified On:03/08/2023 Status:dmbouskxoN07.9Chest pain Modified On:03/08/2023 Status:ihmyfwgiuK31Zmiozgzhzupl Modified On:03/08/2023 Status:avzvehxpmN17.90Osteoarthritis Modified On:03/28/2023 Status:latzpzyczF28.0AF (paroxysmal atrial fibrillation) Modified On:03/08/2023 Status:sxrswrlnoY29.00Dyspnea Modified On:03/08/2023 Status:rnlvexjecB74.9Eczema Modified On:03/08/2023 Status:czeyjruvaW80.569Knee pain Modified On:03/08/2023 Status:wwqmnlqrhL37.90Diverticulosis Modified On:03/08/2023 Status:mudolysvcY13.8Internal hemorrhoids Modified On:03/08/2023 Status:urticrgjbX81.2Aortic valve replaced Modified On:03/08/2023 Status:tdiomqhtnX28.2Incisional hernia Modified On:03/08/2023 Status:gvastxbxjP89.9Gastric ulcer Modified On:03/08/2023 Status:fawgnaekzV12.1Seborrheic keratosis Modified On:03/08/2023 Status:rusqmvctzU96.8Other iron deficiency anemia Modified On:03/08/2023U Status:vwkigzmnqT70.2Plantar fasciitis Modified On:03/08/2023U Status:ehazxwdpyA84.89Chest wall pain Modified On:01/06/2024U Status:pjcckphaoD17.9Umbilical hernia Modified On:03/08/2023U Status:zpckddfzbB74.5Colon polyps Modified On:03/08/2023U Status:pwauiwvayM66.40Ganglion cyst Modified On:03/08/2023U Status:upwxdevcyQ24.9Warthin tumor Modified On:03/08/2023U Status:tqschzwbfL14.30Disc disease, degenerative, cervical Modified On:03/08/2023U Status:qustlviaeM50.011Osteoarthritis of right shoulder region Modified On:04/11/2023U Status:cntctmyatD45.01XACat bite Modified On:02/12/2024U Status:rapeudefdQ01.9Nevus Modified On:02/12/2024U Status:hdbjkvucsJ70.5Hyperlipidemia Modified On:02/13/2024U Status:hbxbcgbirZ75.3Petechiae or ecchymoses Modified On:05/15/2024U Status:ymnffltngW91.9Edema Modified On:06/04/2024U Status:sieikxunrB78.9Abdominal wall hernia Modified On:07/29/2024U Status:dveolrjbvL23.9Acute anemia Modified On:10/01/2024U Status:qerydxqrqE69.9Hip osteoarthritis Modified On:11/16/2024U Status:dhkmwpehyW39.9Parotid discomfort Modified On:11/16/2024U Status:blsuuxxqcJ35.511Shoulder pain, right Modified On:11/16/2024U Status:cgrffrewaJ24.551Right hip pain Modified On:12/11/2024U Status:tcotrfdhtQ21.603Arm pain Modified On:12/23/2024U Status:plpsqwjxpO70.032Arthritis of wrist, left Modified On:02/04/2025W/U Status:broogrgxuL68.8XXAAbrasion Modified On:03/11/2025/U Status:hcnnubnlwG38.90Cellulitis Modified On:03/19/2025/U Status:vxdiwljmfL11.9Frontal headache Modified On:06/24/2025/U Status:snbipabvxY31.70Gastritis Modified On:08/04/2025/U Status:fkjxsygbrI69.2Palpitation Modified On:10/05/2025/U Status:confirmed * Medical History: * Surgical History: H istory of cholecystectomy History of hernia repair Umbilical History of sinus surgery Right Knee Surgery Left & Right rotator Cuff Open Heart Surgery- Aortic Valve Replacement 07/2018 * Hospitalization/Major Diagno stic Procedure: S ee above * Family History: F ather: , CVA, diagnosed with Cancer. M other: , Alzheimers, diagnosed with Hypertension. S ister(s): , alzheimer's dementia, ALS. M igrated Family History:: Father in poor health Prostate Cancer CVA;Chronic disabling diseases ALS Sister;. 3 sister(s) . . dad- prostate cancer, CVA mother, sister- Alzheimers. * Social History: ???Tobacco Use:?Tobacco Use/Smoking?Patient is a?former smoker ?When did you start smoking??11/25/1964 ?When did you stop smoking??11/25/1990 ?How long has it been since you last smoked? > 10 years * Medications: T akingAspirin 81(Aspirin) 81 MG Tablet Chewable 1 tablet Orally Once a day B12 Fast Dissolve(Cyanocobalamin) 5000 MCG Tablet Disintegrating 1 tablet Orally Daily calcium citrate 2 capsules orally BID CoQ10 Ferrous Sulfate 325 (65 Fe) MG Tablet 1 tablet Orally BID Irbesartan 300 MG Tablet 1 tablet Orally Once a day Lasix(Furosemide) 20 MG Tablet 1 tablet Orally Once a day M-Vit Multiple Vitamins with Minerals tablet 1 tablet DAILY Metoprolol Succinate 50 MG Capsule ER 24 Hour Sprinkle 1 capsule Orally Once a day , Notes to Pharmacist: [facility] addedPepcid(Famotidine) 40 MG Tablet 1 tablet Orally bid Prostate Support Simvastatin 20 MG Tablet 1 tablet in the evening Orally Once a day Soma(Carisoprodol) 350 MG Tablet 1 tablet as needed Orally bid tiZANidine HCl 4 MG Tablet 2 tablets Orally at bedtime Vitamin D3 50 MCG (1999) Capsule 1 capsule Orally Once a day Taking Aspirin 81(Aspirin) 81 MG Tablet Chewable 1 tablet Orally Once a day Taking B12 Fast Dissolve(Cyanocobalamin) 5000 MCG Tablet Disintegrating 1 tablet Orally Daily Taking calcium citrate 2 capsules orally BID Taking CoQ10 Taking Ferrous Sulfate 325 (65 Fe) MG Tablet 1 tablet Orally BID Taking Irbesartan 300 MG Tablet 1 tablet Orally Once a day Taking Lasix(Furosemide) 20 MG Tablet 1 tablet Orally Once a day Taking M-Vit Multiple Vitamins with Minerals tablet 1 tablet DAILY Taking Metoprolol Succinate 50 MG Capsule ER 24 Hour Sprinkle 1 capsule Orally Once a day , Notes to Pharmacist: [facility] addedTaking Pepcid(Famotidine) 40 MG Tablet 1 tablet Orally bid Taking Prostate Support Taking Simvastatin 20 MG Tablet 1 tablet in the evening Orally Once a day Taking Soma(Carisoprodol) 350 MG Tablet 1 tablet as needed Orally bid Taking tiZANidine HCl 4 MG Tablet 2 tablets Orally at bedtime Taking Vitamin D3 50 MCG (1999) Capsule 1 capsule Orally Once a day DiscontinuedAmoxicillin-Pot Clavulanate 875-125 MG Tablet 1 tablet Orally every 12 hrs Medication List reviewed and reconciled with the patientDiscontinued Amoxicillin-Pot Clavulanate 875-125 MG Tablet 1 tablet Orally every 12 hrs Medication List reviewed and reconciled with the patient * Allergies: d ust: Allergypollens: AllergyLisinopril - Criticality High[Allergies Verified] Objective: * Vitals: W t:193.0lbs, Ht: 70 in, BP:152/62mm Hg, BMI:27.69Index, Ht-cm: 177.8 cm, Wt-k.54 kg. * Examination: ???Physical Exam: ?GENERAL:?well developed, well nourished, in no acute distress.?HEAD:?normocephalic/atraumatic.?EYES:?pupils equal, round and reactive to light, conjunctivae and sclerae normal.?EARS:?no deformity or lesion of external ear, canals and TM appear normal bilaterally, TM's intact, not inflamed with normal light reflex, hearing grossly normal to conversational speech.?NOSE:?no deformity, discharge, inflammation, or lesions. ?MOUTH:?mucous membranes moist, normal oropharynx and posterior pharynx without lesions or exudates, tongue normal, dentition normal.?NECK:?neck supple, no masses or palpable cervical nodes, trachea midline, thyroid without nodules, masses, tenderness, or enlargement.?CHEST:?no chest wall deformity, no chest wall tenderness. ?LUNGS:?normal respiratory effort and clear to auscultation, no wheezes, rales, or rhonchi, good air exchange.?CARDIO:?regular rate and rhythm, normal S1 and S2, nor murmur, rub, or gallop.?PULSES:?normal capillary refill.?ABDOMEN:?soft, non-distended, non-tender, no masses.?MUSCULOSKELETAL:?no deformity or scoliosis noted, normal range of motion, joints normal, no erythema, edema, effusion, or ecchymosis.?EXTREMITY:?no clubbing, cyanosis, edema, or deformity withnormal ROM in both upper and lower bilateral extremities.?NEUROLOGIC:?grossly normal.?SKIN:?no rashes, ulcerations, or suspicious lesions.?LYMPH NODES:?no cervical adenopathy, nodes normal.?MENTAL STATUS:?alert and oriented x3, normal mood and affect.? Assessment: * Assessment: 1.?Hypertension - I10 (Primary)???2.?Palpitation - R00.2??? Plan: * Treatment: ?Procedure: Holter Monitor - 3 days up to 14 days* 7 days * Procedures: ???EKG w/Interp:?Interpretation: ?NSR - mild 1st degree avb.? * Procedure Codes: * * Sign off status: CompletedVisit Status:?CHK (Check Out) true * Provider: Destinee Pearl ([facility])MD Date: 12/05/2024 Generated for Printing/Faxing/eTransmitting on:?10/08/2025 07:50 AM EST History and Physical Notes * HPI (History of Present Illness) CategorySub-CategoryDetailNotesCategory NotesGeneral Fels like has been in a-0fib - feels different than hi [facility]'s Examination CategorySub-CategoryDetailNotesCategory NotesPhysical ExamGENERAL:well developed, well nourished, in no acute distressHEAD:normocephalic/atraumatic EYES:pupils equal, round and reactive to light, conjunctivae and sclerae normal EARS:no deformity or lesion of external ear, canals and TM appear normal bilaterally, TM's intact, not inflamed with normal light reflex, hearing grossly normal to conversational speechNOSE:no deformity, discharge, inflammation, or lesionsMOUTH:mucous membranes moist, normal oropharynx and posterior pharynx without lesions or exudates, tonguenormal, dentition normalNECK:neck supple, no masses or palpable cervical nodes, trachea midline, thyroid without nodules, masses, tenderness, or enlargementCHEST:no chest wall deformity, no chest wall tendernessLUNGS:normal respiratory effort and clear to auscultation, no wheezes, rales, or rhonchi, good air exchangeCARDIO:regular rate and rhythm, normal S1 and S2, nor murmur, rub, or gallopPULSES:normal capillary refillABDOMEN:soft, non-distended, non-tender, no massesRECTAL:MUSCULOSKELETAL:no deformity or scoliosis noted, normal range of motion, joints normal, no erythema, edema, effusion, or ecchymosisEXTREMITY:no clubbing, cyanosis, edema, or deformity with normal ROM in both upper and lower bilateral extremitiesNEUROLOGIC:grossly normalSKIN:no rashes, ulcerations, or suspicious lesionsLYMPH NODES:no cervical adenopathy, nodes normalMENTAL STATUS:alert and oriented x3, normal mood and affect
--- OUTSIDE RECORDS SUMMARY | 2025-10-05 05:23 | XMS_ITS ---
Author Organization The [facility] in [place] Address [address] [place] [address] Care Team Providers Care Rotary Engine Assembler Name Role Phone Edwin Pearl Primary Care Provider [phone] REASON FOR VISIT ECHO from [facility] Procedures Procedure Date Ordered Date Performed Result Body Sit e Echocardiogram 10/05/2025 N/A Encounters Encounter Location Date Provider Diagnosis [facility] [address] [place] [address] 10/05/2025 Edwin Pearl Edema R60.9 Assessments Encounter Date Diagnosis (ICD Code) Assessment Notes Treatment Notes Treatment Clinical Notes Section Notes 10/05/2025 Edema (ICD-10 - R60.9) Plan Of Treatment Pending Test Test Name Order Date Echocardiogram 10/05/2025 Progress Notes * Wally WOODALL ADOB:1945 (80 yo M)Acc No.[id number]:10/05/2025 Patient:?JOSE C Wally Pak :1945???Age:80 Y???Sex:MalePhone:[phone] Address:[address] [place] [address] Subjective: * Chief Complaints: * E CHO from [facility] * Medical History: * Surgical History: * Hospitalization/Major Diagno stic Procedure: * Medications: Objective: * Vitals: * Physical Examination: ??? Assessment: * Assessment: 1.?Edema - R60.9 (Primary)??? Plan: * Treatment: ?Procedure: Echocardiogram * Procedure Codes: * true * Date:?Generated for Printing/Faxing/eTransmitting on:?10/08/2025 07:50 AM EST
--- OUTSIDE RECORDS SUMMARY | 2025-10-08 07:50 | XMS_ITS | Patient Health Record ---
Author Organization [facility] Address [address] [place] [address] Care Team Providers Care Library Circulation Assistant Name Role Phone Waqas Salmeron Unavailable [phone] Aniceto Pearl Unavailable Unavailable xxJannie Moreno Unavailable Allergies Allergen (clinical drug ingredient) Drug/Non Drug Allergy documented on EMR Reaction Allergy Type Onset Date Status lisinopril lisinopril cough Drug Allergy Active Reason For Referral No Information Medications Medication SIG (Take, Route, Frequency, Duration) Notes Start Date End Date Status irbesartan ActivefurosemideActivemetoprololActive Social History Tobacco Use: Social History Observation Description Date Details (start date - stop date) Never Smoker NA - NA AUDIT-C (Standard) Question Answer Notes Did you have a drink containing alcohol in the p ast year? No Qsimuq1EjobwwdjcthfgmZrxyvjqbJcifdwc Control (Standard) Question Answer Notes Tobacco use: Nonsmoker Problems Problem Type SNOMED Code ICD Code Onset Dates Problem Status W/U Status Risk Notes Problem Localized, primary o steoarthritis of the hand ([id number]) Arthritis of carpometacarpal (CMC) joint of left thumb (M18.12) Activeconfirmed Vital Signs Height 5'10 in 02/01/2025 Sremij807 lbs02/01/2025BMI25.8202/01/2025 Encounters Encounter Location Date Provider Diagnosis [facility] Office [address] [place] [address] [address] [place] [address] 02/01/2025 Jannie Savage Arthritis of carpometacarpal (CMC) joint of left thumb M18.12 Assessments Encounter Date Diagnosis (ICD Code) Assessment Notes Treatment Notes Treatment Clinical Notes Section Notes 02/01/2025 Arthritis of carpome tacarpal (CMC) joint of left thumb (ICD-10 - M18.12) Left thumb CMC idvrhqklkkpwmz54/10/2025OtherToday I reviewed patient's x-rays with him and discussed nonsurgical [...] would like to call us on as-needed basis.Left thumb CMC osteoarthritis Plan Of Treatment No Information Insurance Providers Payer Name Payer Address Payer Phone Subscriber Number Group Number Insured Name Patient Relationship to Insured Coverage Start Date Coverage End [place] [address] [place] [address] [id number] EDVIN BARROWelf - [facility] the [facility] [address] [address] [place] [id number], EDWARDSelf - patient is the insured Medical (General) History Medical History History ICD Code Heart problems: High Blood PressureDrug AllergiesSurgical History Surgery Date(Month/Year) Open heart, aortic valve replaced Rt thumbBil rotator cuff
--- OUTSIDE RECORDS SUMMARY | 2025-10-08 07:50 | XMS_ITS | Clinical Summary ---
Author Organization [facility] Address [address] [place] [address] Care Team Providers Care [employer] Name Role Phone Aniceto Pearl MD Primary Care Provider [phone] Allergies Active AllergyReactionsCriticalityNoted TmebIrrjubkcArsifmdKkqjcto49/17/2023 OdfvcrtpdOioarzu05/17/2023 Medications MedicationSigDispense QuantityRefillsLast FilledStart DateEnd DateStatus Coenzyme A01-Gehfrem E (Qunol Ultra CoQ10) 100-150 MG-UNIT capsule OrallyActive furosemide (Lasix) 20 MG tablet 1 (one) time each day at the same time.Active Multiple Vitamins-Minerals (Centrum Silver 50+Men) tablet 1 (one) time each day at the same time.Active omeprazole (PriLOSEC) [address] capsule 1 capsule 1 (one) time each day at the same time.Active saw palmetto (Serenoa repens) 450 MG capsule 1 (one) time each day at the same time.Active calcium citrate 600 mg and vitamin D3 (Citrical & Minerals + Vit D) 600-200 MG- UNIT tablet every 12 (twelve) hours.Active coenzyme Q-10 30 MG capsule Co Q-10Active psyllium (Metamucil) 100 % powder 1 (one) time each day at the same time.Active saw palmetto 80 MG capsule take 1 Tablet by Oral route every day OralActive cholecalciferol (Vitamin D-3) 50 MCG (1999) capsule 1 capsule 1 (one) time each day at the same time.Active irbesartan (Avapro) 300 MG tablet Take 300 mg by mouth at bedtime.Active metoprolol succinate XL (Toprol-XL) 50 MG 24 hr tablet Take by mouth. Do not crush or chew.Active cyanocobalamin (Vitamin B-12) 100 MCG tablet Take 100 mcg by mouth in the morning.Active simvastatin (Zocor) 20 MG tablet TAKE 1 TABLET BY MOUTH DAILY IN THE EVENINGActive benzonatate (Tessalon) 200 MG capsule 1 capsule every 8 (eight) hours5Active doxycycline (Vibramycin) 50 MG capsule Take 50 mg by mouth DailyActive Active Problems ProblemNoted DateDiagnosed DateBilateral low back pain06/10/2023Lumbar disc disease with krvmmsylmldvj94/17/2023 Family History Medical HistoryRelationNameCommentsCancerFatherStrokeFatherDiabetesMaternal GrandfatherStrokeMaternal GrandfatherDiabetesMaternal GrandmotherStrokeMaternal GrandmotherHypertensionMotherStrokeMotherNo Known ProblemsPaternal GrandfatherNo Known ProblemsPaternal GrandmotherRelationNameStatusCommentsFatherDeceased Maternal GrandfatherDeceasedMaternal GrandmotherDeceasedMotherDeceasedPaternal GrandfatherDeceasedPaternal GrandmotherDeceased Social History Tobacco UseTypesPacks/DayYears UsedDateSmoking Tobacco: FormerCigarettes Smokeless Tobacco: Never Comments:>10 years since t smoked Alcohol UseStandard Drinks/WeekCommentsYes0 (1 standard drink = 0.6 oz pure alcohol)caffeine: 3-4 cups per day coffeeSex and Gender InformationValueDate RecordedSex Assigned at VcxmaWvjz01/27/2023 1:27 PM EDTLegal WflBdty3002/06/2023 7:12 PM EDTGender DohhzoxjNgoy45/27/2023 1:27 PM EDTSexual OrientationNot on file Last Filed Vital Signs Vital SignReadingTime TakenCommentsBlood Bikotisy087/8107 1:37 PM EDT Qjfdf8386/27/2023 1:37 PM FBWFyeccmwscad40.4 ??C (97.6 ??F)06/20/2023 1:37 PM EDTRespiratory Rate--Oxygen Saturation--Inhaled Oxygen Concentration--Ffnnzh15.3 kg (188 lb)04/01/2018 12:00 PM GHWWxfqwh347.1 cm (5' 10.5 )04/01/2018 12:00 PM EDTBody Mass Index26.59004/01/2018 12:00 PM EDT Plan of Treatment Health MaintenanceDue DateLast DoneCommentsCOVID-19 Vaccine ( season) /, 09/11/2022, 03/08/2022, Additional history existsInfluenza Vaccine (#1)/08/2024, 08/15/2023, 09/11/2022, Additional history existsPneumococcal Vaccine: 65+ GctyjQgoohulkg65/31/2020, 06/10/2017 Insurance * Guarantor: Wally Woodall AAccount TypeRelation to PatientDate of BirthPhone Billing AddressPersonal/TwfljoYaxn1945 [address] [place] [address] Care Teams Team MemberRelationshipSpecialtyStart Date Aniceto Pearl MD PCP - GeneralFamily Medicine06/20/23
--- OUTSIDE RECORDS SUMMARY | 2025-10-08 07:50 | XMS_ITS | Patient Health Record ---
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 Name Role Phone Edwin Pearl Primary Care Provider [phone] Allergies Allergen (clinical drug ingredient) Drug/Non Drug Allergy documented on EMR Reaction Allergy Type Onset Date Status dust (uncoded)UnknownAllergyActivePollenpollens (uncoded)UnknownAllergyActive lisinoprilLisinoprilUnknownDrug AllergyActive Results Component Value Reference Range Notes UA DIP NONAUTO WO MICRO (810 02) - IN OFFICE Reviewed date:07/28/2025 03:37:51 PM Interpretation: Performing Lab: Notes/Report: COLOR Yellow CLARITYClearGLUCOSENegBILIRUBINNegKETONENegSPECIFIC GRAVITY1.890XPWTWWimCD9 PROTEINNegUROBILINOGENNegNITRITENegLEUKOCYTE ESTERASENegCOVID-19, Flu A+B IH Reviewed date:10/01/2025 02:34:43 PM Interpretation: Performing Lab: Notes/Report: COVIDPOSITIVEFLU AnegFLU BnegControlpresentNM sara perf SPECT rest str Reviewed date:10/01/2025 02:34:43 PM Interpretation: Performing Lab: Notes/Report: Source Facility: [place] [address] [place] [address] Nuclear Medicine Report Signed Patient: WALLY WOODALL MR#: [id number] : 1945 Acct:[id number] Age/Sex: 80 / M ADM Date: 10/01/25 Loc: NM Attending Dr: Onel Pearl M.D. Ordering Physician: Onel Pearl M.D. Date of Service: 10/01/25 Procedure(s): NM sara perf SPECT rest str Accession Number(s): [id number] cc: Onel Pearl M.D. Patient Name: WALLY WOODALL MR#: [id number] : 1945 Exam Date: 10/01/2025 Ordering Doctor: DR ONEL PEARL . RADIOLOGY REPORT PROCEDURE: NM SARA PERF SPECT REST STR COMPARISON: None. INDICATIONS: CHEST PAIN TECHNIQUE: Exam Description: Stress/Rest one day protocol gated SPECT Rest Imagin.6 mCi Tc-99m Cardiolite IV on 10/01/2025 Stress Imaging 30.1 mCi Tc-99m Cardiolite IV on 10/01/2025 Exercise Protocol: Anastacio Heart Rate (bpm): Rest: 64 Max: 139 PMHR: 98 Blood Pressure: Rest: 150/96 Max: 178/100 Exercise Time: Minutes: 6 Seconds: 13 Stage Reached: Stage: 3 Mets 7.6 Symptoms: Rest and peak stress ECG findings were pending and the EKG portion of the study was pending per attending physician [facility] . For more details please see separate cardiac stress test report. FINDINGS: QUALITY OF STUDY: Good PERFUSION DEFECT: LOCATION: Inferior SIZE: Small to medium SEVERITY: Mild TYPE: Fixed with adequate contractility and thickening consistent with diaphragmatic attenuation WALL MOTION: Normal LV SIZE: 84 mL. TID / TCD: 0.9 LVEF: Calculated EF 64%. SUMMARY: Normal myocardial perfusion imaging study CONCLUSION: Normal myocardial perfusion stress test without evidence of ischemia or infarction. There is evidence of diaphragmatic attenuation. Normal left ventricle systolic function, ejection fraction 64% No transient ischemic dilatation, TID 0.9 EKG portion of stress test is reported separately Dictated by: Radha Denny MD on 10/01/2025 at 12:17 Approved by: Radha Denny MD on 10/01/2025 at 12:21 Dictated By: Radha Denny M.D. Signed By: 10/01/25 1222 DD/ 1221 TD/TT: Box Coverer Hand:PSA SCREENING Reviewed date:06/06/2025 03:38:10 PM Interpretation: Performing Lab: Notes/Report: [facility] ,Prostate Specific Antigen Scrn2.49<=4.00 ng/mLPerforming Lab:see noteML - [facility] LBUS venous doppler UE RT Reviewed date:12/23/2024 09:19:36 PM Interpretation: Performing Lab: Notes/Report: Source Facility: [facility] [place] [address] [place] [address] Ultrasound Report Signed Patient: WALLY WOODALL MR#: [id number] : 1945 Acct:[id number] Age/Sex: 79 / M ADM Date: 12/23/24 Loc: RAD Attending Dr: Onel Pearl M.D. Ordering Physician: Onel Pearl M.D. Date of Service: 12/23/24 Procedure(s): US venous doppler UE LT Accession Number(s): [id number] cc: Onel Pearl M.D. [facility] [place] [address] Patient Name: WALLY WOODALL MRN: [id number] date: 1945 Sex: M Assigned Patient Location: [facility] Current Patient Location: [facility] Accession/Order Number: [id number] Exam Date: 12/23/2024 18:15 Report Date: 12/23/2024 21:12 At the request of: ONEL PEARL Procedure: US venous doppler UE LT EXAM: [...] superficial venous thrombosis. Electronically authenticated by: Renaldo MCNEIL Date: 12/23/2024 21:12 Dictated By: Renaldo Mcneil M.D. Signed By: 12/23/242114 DD/ 11 TD/TT: Box Coverer Hand:XR hip RT min 2V Reviewed date:11/19/2024 05:52:19 PM Interpretation: Performing Lab: Notes/Report: Source Facility: [place] [address] [place] [address] XRay Report Signed Patient: WALLY WOODALL MR#: [id number] : 1945 Acct:[id number] Age/Sex: 79 / M ADM Date: 11/16/24 Loc: RAD Attending Dr: Onel Pearl M.D. Ordering Physician: Onel Pearl M.D. Date of Service: 11/16/24 Procedure(s): XR hip RT min 2V Accession Number(s): [id number] cc: Onel Pearl M.D. [place] [address] Patient Name: WALLY WOODALL MRN: [id number] date: 1945 Sex: M Assigned Patient Location: [facility] Current Patient Location: Accession/Order Number: [id number] Exam Date: 11/16/2024 15:45 Report Date: 11/19/2024 11:32 At the request of: ONEL PEARL Procedure: XR hip RT min 2V PROCEDURE: [...] Dictated By: Waqas Payton M.D. Signed By: 11/19/244 DD/ 31 TD/TT: Box Coverer Hand:RITESH-19, Flu A+B IH Reviewed date:07/28/2025 03:48:10 PM Interpretation: Performing Lab: Notes/Report: COVIDNegFLU ANegFLU BNegControlPresentCT lower leg LT wo con Reviewed date:03/22/2025 02:48:59 PM Interpretation: Performing Lab: Notes/Report: Source Facility: [place] [address] CT Scan Report Signed Patient: WALLY WOODALL MR#: [id number] : 1945 Acct:[id number] Age/Sex: 79 / M ADM Date: 03/19/25 Loc: CT Attending Dr: Onel Pearl M.D. Ordering Physician: Onel Pearl M.D. Date of Service: 03/19/25 Procedure(s): CT lower leg LT wo con Accession Number(s): [id number] cc: Onel Pearl M.D. [place] [address] Patient Name: WALLY WOODALL MRN: [id number] date: 1945 Sex: M Assigned Patient Location: CT Current Patient Location: Accession/Order Number: [id number] Exam Date: 03/22/2025 12:30 Report Date: 03/22/2025 12:33 At the request of: ONEL PEARL MD Procedure: CT lower leg LT wo [...] Jr., D.O. 03/22/2025 12:33 PM Dictation Location: [place] [address] Electronically authenticated by: [id number] Y Date: 03/22/2025 12:33 Dictated By: Michael Hale M.D. Signed By: 03/22/25 1236 DD/ 1233 TD/TT: Box Coverer Hand:AUBREE19, Flu A+B IH Reviewed date:03/22/2025 02:48:59 PM Interpretation: Performing Lab: Notes/Report: COVIDnegFLU AnegFLU BnegControlposXR wrist LT min 3V Reviewed date:12/26/2024 04:12:57 PM Interpretation: Performing Lab: Notes/Report: Source Facility: [place] [address] XRay Report Signed Patient: WALLY WOODALL MR#: [id number] : 1945 Acct:[id number] Age/Sex: 79 / M ADM Date: 12/23/24 Loc: [facility] Attending Dr: Onel Pearl M.D. Ordering Physician: Onel Pearl M.D. Date of Service: 12/23/24 Procedure(s): XR wrist LT min 3V Accession Number(s): [id number] cc: Onel Pearl M.D. [place] [address] Patient Name: WALLY WOODALL MRN: [facility]:[id number] date: 1945 Sex: M Assigned Patient Location: [facility] Current Patient Location: Accession/Order Number: [id number] Exam Date: 12/23/2024 18:45 Report Date: 12/25/2024 07:14 At the request of: ONEL PEARL Procedure: XR wrist LT min 3V PROCEDURE: [...] Leonela Parikh M.D. Signed By: 12/25/24715 DD/ 3 TD/TT: Box Coverer Hand:MR head/brain wo con Reviewed date:07/01/2025 09:47:06 PM Interpretation: Performing Lab: Notes/Report: Source Facility: [place] [address] Magnetic Resonance Report Signed Patient: WALLY WOODALL MR#: [id number] : 1945 Acct:[id number] Age/Sex: 79 / M ADM Date: 07/01/25 Loc: MRI Attending Dr: Onel Pearl M.D. Ordering Physician: Onel Pearl M.D. Date of Service: 07/01/25 Procedure(s): MR head/brain wo con Accession Number(s): [id number] cc: Onel Pearl M.D. [place] [address] Patient Name: WALLY WOODALL MRN: [id number] date: 1945 Sex: M Assigned Patient Location: MRI Current Patient Location: MRI Accession/Order Number: [id number] Exam Date: 07/01/2025 16:44 Report Date: 07/01/2025 16:57 At the request of: ONEL PEARL MD Procedure: MR head/brain wo con EXAMINATION: MRI OF THE BRAIN WITHOUT CONTRAST CLINICAL HISTORY: Frontal Headache COMPARISON: None TECHNIQUE: Multiecho, multiplanar imaging of the brain was performed without contrast. Findings: No restricted diffusion. Mild generalized involutional changes of brain parenchyma identified with prominence of ventricles and sulci. No shift of midline structures. Basal cisterns are patent. Moderate periventricular and subcortical T2 prolongation suggestive of chronic small vessel ischemic disease. Remote right frontal lobe appears strokes subcortical region and along the articular white matter. No shift midline structure. Basal cisterns are patent. Major intracranial intravascular flow was preserved. No abnormal GRE signal. Mild paranasal sinus mucoperiosteal thickening. Cataract surgery. MR/MR head/brain wo con IMPRESSION: Moderate chronic small vessel ischemic disease. Negative acute intracranial process by MRI. Impression dictated by: Porfirio Guido M.D. 07/01/2025 4:57 PM Dictation Location: [place] [address] Electronically authenticated by: [id number] Y Date: 07/01/2025 16:57 Dictated By: Porfirio Guido M.D. Signed By: 07/01/251699 DD/ 56 TD/TT: Box Coverer Hand: Reason For Referral Diagnosis 1 Hip osteoarthritis ( M16.9) Referral Organization 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 Referring Provider First Name Edwin Referring Provider Last Name [facility] Referring Provider [facility] icine Referred Provider Waqas Salmeron Referred Provider Specialty Orthopedic S urgery Referral Priority Routine Reason patient is joaquin quinn Dr. Morrell Diagnosis 1 Shoulder pain, right (M25.511) Referral Organization [facility] Referring Provider First Name Edwin Referring Provider Last Name [facility] Referring Provider [facility] icine Referred Provider Specialty Orthopedic S urgery Referral Priority Routine Medications Medication SIG (Take, Route, Frequency, Duration) Notes Start Date End Date Status Aspirin 81 81 MG 1 tablet Orally Once a day ActiveSimvastatin 20 MG1 tablet in the evening Orally Once a day; Duration: 90 days10/01/2024ctiveProstate SupportActivecalcium citrate2 capsules orally BID ActivetiZANidine HCl 4 MG2 tablets Orally at bedtime; Duration: 01/07/20249795UkotfhA72 Fast Dissolve 5000 MCG1 tablet Orally DailyActiveSoma 350 MG 1 tablet as needed Orally bid; Duration: 30 days01/06/2024ctiveFerrous Sulfate 325 (65 Fe) MG1 tablet Orally BID10/01/20243649VeyjnaGhH60DlmjxmQdpxgjg D3 50 MCG (1999)1 capsule Orally Once a dayActiveLasix 20 MG1 tablet Orally Once a day; Duration: 90 days4ActiveIrbesartan 300 MG1 tablet Orally Once a day ActiveMetoprolol Succinate 50 MG1 capsule Orally Once a dayOhio[facility] addedActiveM-Vit Multiple Vitamins with Minerals1 tablet DAILY Active Pepcid 40 MG1 tablet Orally bid; Duration: 14 days5Active Immunizations Vaccine Route Administration Date Status Comme nts Tdap (Adacel) IM Intramuscular 02/12/2024 Administered Social History Tobacco Use: Social History Observation Description Date Details (start date - stop date) Former Smoker 11/25/1964 - 11/25/1990 Tobacco Use/Smoking Question Answer Notes Patient is a former smoker When did you start smoking?11/25/1964When did you stop smoking?11/25/1990How long has it been since you last smoked?> 10 yearsAlcohol Screen (Audit-C) Question Answer Notes Did you have a drink containing alcohol in the p ast year? Yes How often did you have 6 or more drinks on one occasion in the past year?Never (0 point)How many drinks did you have on a typical day when you were drinking in the past year?1 or 2 drinks (0 point)How often did you have a drink containing alcohol in the past year?Weekly (3 points)Llptav6WxhjpxkwglwuiwBifoisodMTWPW-N (Standard) Question Answer Notes Did you have a drink containing alcohol in the p ast year? No Vkvscs7XsxrhgfqlsisbmLpryirqn Problems Problem Type SNOMED Code ICD Code Onset Dates Problem Status W/U Status Risk Notes Problem Diplopia (61087535) Diplopia (H53.2) ActiveconfirmedProblemAcute exacerbation of chronic obstructive airways disease (163577528)Chronic obstructive pulmonary disease with (acute) exacerbation (J44.1)ActiveconfirmedProblemHeadache (88079616)Headache (R51)Activeconfirmed ProblemChest pain (95477574)Chest pain (R07.9)ActiveconfirmedProblem Hyperlipidemia (96873097)Hyperlipidemia (E78.5)ActiveconfirmedProblem Hypertension (26764583)Hypertension (I10)ActiveconfirmedProblemOsteoarthritis (370949914)Osteoarthritis (M19.90)ActiveconfirmedProblemAtrial fibrillation (45184452)AF (paroxysmal atrial fibrillation) (I48.0)ActiveconfirmedProblem Palpitations (40357934)Palpitation (R00.2)ActiveconfirmedProblemEdema (22501253) Edema (R60.9)ActiveconfirmedProblemDyspnea (360175955)Dyspnea (R06.00)Active confirmedProblemEczema (37087874)Eczema (L30.9)ActiveconfirmedProblemKnee pain (5304402355)Knee pain (M25.569)ActiveconfirmedProblemPain in limb (65205553)Arm pain (M79.603)ActiveconfirmedProblemDiverticular disease of colon (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) Diverticulosis (K57.90)ActiveconfirmedProblemInternal hemorrhoids (17532916) Internal hemorrhoids (K64.8)ActiveconfirmedProblemHistory of heart valve repair with prosthesis (492694964055968)Aortic valve replaced (Z95.2)Activeconfirmed ProblemGastritis (8360266)Gastritis (K29.70)ActiveconfirmedProblemIncisional hernia (907412025)Incisional hernia (K43.2)ActiveconfirmedProblemArthralgia of the pelvic region and thigh (322053878)Right hip pain (M25.551)Activeconfirmed ProblemCellulitis (199851700)Cellulitis (L03.90)ActiveconfirmedProblemGastric ulcer (798540092)Gastric ulcer (K25.9)ActiveconfirmedProblemSeborrheic keratosis (59061241)Seborrheic keratosis (L82.1)ActiveconfirmedProblemShoulder joint pain (676961585)Shoulder pain, right (M25.511)ActiveconfirmedProblemIron deficiency anemia (27544686)Other iron deficiency anemia (D50.8)ActiveconfirmedProblem Plantar fasciitis (994026797)Plantar fasciitis (M72.2)ActiveconfirmedProblem Chest wall pain (058205953)Chest wall pain (R07.89)ActiveconfirmedProblem Osteoarthritis of hip (026918768)Hip osteoarthritis (M16.9)Activeconfirmed ProblemUmbilical hernia (384002223)Umbilical hernia (K42.9)Activeconfirmed ProblemPolyp of colon (disorder) (31970025)Colon polyps (K63.5)Activeconfirmed ProblemHernia of anterior abdominal wall (disorder) (207023407)Abdominal wall hernia (K43.9)ActiveconfirmedProblemCat bite (605581826)Cat bite (W55.01XA) ActiveconfirmedProblemGanglion cyst (26198623)Ganglion cyst (M67.40)Active confirmedProblemNevus (6648944463)Nevus (D22.9)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 ProblemDegeneration of cervical intervertebral disc (65762473)Disc disease, degenerative, 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)ActiveconfirmedProblemDisorder of salivary gland (65097491)Parotid discomfort (K11.9)ActiveconfirmedProblemLocalized, primary osteoarthritis of the shoulder region (093329500)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)ActiveconfirmedProblemSpontaneous ecchymosis (607075030)Petechiae or ecchymoses (R23.3)ActiveconfirmedProblemArthritis of wrist (0352048030055)Arthritis of wrist, 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)ActiveconfirmedProblem Abrasion (6927970)Abrasion (T14.8XXA)ActiveconfirmedProblemAnemia (756275396) Acute anemia (D64.9)ActiveconfirmedProblemFrontal headache (812303924)Frontal headache (R51.9)Activeconfirmed Vital Signs Temperature 99.5 degrees Fahrenheit 07/30/2025 Blood pressure xrtzyiomx59 mm Hg10/05/20254511Urnsjj17 in10/05/2025lood pressure mwhlemsc217 mm Hg10/05/20254483Densur019.0 lbs112/05/2024BMI27.69 kg/m210/05/2025 Procedures Procedure Date Ordered Date Performed Result Body Sit e CARDIO Stress Test - Cardiolite 06/24/2025 N/AHolter Monitor - 3 days up to 14 days10/05/2025N/MBxxkjylmucfsgh15/11/2025N/A Cardiolyte Stress Test07/28/2025N/ADressing/Splint-eqkluhkvu03/29/2025N/A Encounters Encounter Location Date Provider Diagnosis [facility] [address] [place] [address] 09/24/2025 Edwin Hoy Edema R60.9 [facility] [address] [place] [facility] [place] [address] 10/03/2025 Edwin Hoy [facility] [place] [address] 10/05/2025[facility]Ed[facility] R60.9[facility] [place] [facility] [place] [place] [address]/Doug HoyShoulder pain, right M25.511[facility] [place] [address]/12/2024 Edwin [facility] [place] [address]/08/2025Doug HoyScreening for prostate cancer Z12.5[facility] [place] [place] [address]/Doug [facility] [place] [place] [address] 07/01/2025Doug [facility] [place] [address]/01/2025Doug HoyChest pain R07.9[facility] [address] [place] [address]/Doug [facility] [place] [address]/Doug Hoy Hypertension D34UdzcahhOrthocolorado [facility] [place] [address]/06/2025Doug [facility] [place] [address]/Doug [facility] [facility] [place] [address]/Doug [facility] [place] [address]/Doug HoyBVPikes [facility] [place] [address]/12/2023 Edwin HoyAcute anemia D64.9[facility] [facility] [place] [address]/oug [facility] [facility] [place] [address]/oug HoyHip osteoarthritis M16.[address] [facility] [place] [address] 11/30/2024Doug [facility] [place] [address]/Doug [facility] [place] [address]/11/2024Doug HoyArthritis of wrist, left M19.[address] [facility] [place] [address] 03/17/2025Doug HoyCellulitis L03.90[facility] [place] [address]/Doug HoyCellulitis L03.90[facility] [place] [address]/oug Hoy Nevus D22.9[facility] [facility] [place] [address]/01/2025Doug HoyDysuria R30.0[facility] [place] [place] [address]/03/2025Doug HoyFever R50.9 and Acute bronchitis, unspecified organism J20.9[facility] [place] [address]/08/2025Doug HoyGastritis K29.70[facility] [place] [address]/09/2025 Edwin HoyHypertension I10 and Palpitation R00.2[facility] [address] [place] [address]/Doug HoyAbrasion T14.8XXA and Cellulitis L03.90[facility] [place] [address]/12/2024Doug HoyCellulitis L03.90[facility] [place] [address]/06/2025Doug HoyCellulitis L03.90[facility] [place] [address]/Doug HoyCellulitis L03.90[facility] [place] [address]/08/2025Doug HoyHypertension M35OnidrlcOrthocolorado [facility] [place] [address]/ Edwin HoyFrontal headache R51.9 ; Chest pain R07.9 and Acute bronchitis, unspecified organism J20.9[facility] [place] [address]/oug HoyHip osteoarthritis M16.9 ; Edema R60.9 ; Parotid discomfort K11.9 and Shoulder pain, right M25.511[facility] [place] [address]/Doug Hoy Right hip pain M25.551BGeoffrey [place] [address] [place] [address]/Doug HoyArm pain M79.603BGeoffrey V[place] [address] [place] [address]/Doug HoyBody aches R52 and Acute bronchitis, unspecified organism J20.9BGeoffrey Ville [address] [place] [address]/Doug Hoy Hypertension I10 and Right hip pain M25.551BGeoffrey Ville [address] [place] [place] [address]/Doug HoyAbrasion T14.8XXABJeffrey Ville [address] [place] [place] [place] [address]/ Edwin HoyCellulitis L03.90 Assessments Encounter Date Diagnosis (ICD Code) Assessment Notes Treatment Notes Treatment Clinical Notes Section Notes 11/04/2024 Nevus (ICD-10 - D22.9) seeing derma nd plastics in next couple vvfftp4711/16/2024Hip osteoarthritis (ICD- 10 - M16.9)getting x-rays11/16/2024Edema (ICD-10 - R60.9)trace08/04/2025 Gastritis (ICD-10 - K29.70)10/05/2025Hypertension (ICD-10 - I10)10/05/2025 Palpitation (ICD-10 - R00.2)4Acute anemia (ICD-10 - D64.9)11/19/2024Hip osteoarthritis (ICD-10 - M16.9)5Arthritis of wrist, left (ICD-10 - M19.032)02/12/2025Hypertension (ICD-10 - I10)04/08/2025Shoulder pain, right (ICD-10 - M25.511)06/03/2025Screening for prostate cancer (ICD-10 - Z12.5) 07/28/2025hest pain (ICD-10 - R07.9)09/24/2025Edema (ICD-10 - R60.9)10/05/2025 Edema (ICD-10 - R60.9)02/12/2025Hypertension (ICD-10 - I10)02/12/2025Right hip pain (ICD-10 - M25.551)03/11/2025brasion (ICD-10 - T14.8XXA)03/17/2025 Cellulitis (ICD-10 - L03.90)03/19/2025brasion (ICD-10 - T14.8XXA)03/19/2025 Cellulitis (ICD-10 - L03.90)03/23/2025ellulitis (ICD-10 - L03.90)03/26/2025 Cellulitis (ICD-10 - L03.90)04/01/2025ellulitis (ICD-10 - L03.90)04/08/2025 Cellulitis (ICD-10 - L03.90)5Cellulitis (ICD-10 - L03.90)06/03/2025 Hypertension (ICD-10 - I10)06/24/2025Frontal headache (ICD-10 - R51.9)06/24/2025 Chest pain (ICD-10 - R07.9)12/11/2024Right hip pain (ICD-10 - M25.551)12/23/2024 Arm pain (ICD-10 - M79.603)5Body aches (ICD-10 - R52)07/28/2025Dysuria (ICD-10 - R30.0)07/30/2025Fever (ICD-10 - R50.9)07/30/2025ute bronchitis, unspecified organism (ICD-10 - J20.9)Rest and drink more liquids, especially water. You may use a humidifier or vaporizer to help keep the drainage moist. Rjjs-vdp-jnlzfjp Nasal Saline may help the stuffy and runny nose. Use Ibuprofen and or Tylenol as needed for fever, chills, body aches or pain. Children 5 years old should not be given ucne-lvi-laljhwt cough and cold medications such as guaifenesin and dextromethorphan. If you're over age 5, you may try bspj-nhx-brqwoby cold medications such as guaifenesin and dextromethorphan, or multi-symptom cold reliever such as Dayquil to help reduce the symptoms. Antibiotics have been prescribed. You should take these until completed and follow the directions. Antibiotics can sometimescause upset stomach, and in rare cases, serious [...] chest pain you should go to the [facility] or call [phone] bronchitis, unspecified organism (ICD-10 - J20.9)Rest and drink more liquids, especially water. You may use a humidifier or vaporizer to help keep the drainage moist. Dlfe-jrt-errwkbi Nasal Saline may help the stuffy and runny nose. Use Ibuprofen and or Tylenol as needed for fever, chills, body aches or pain. Children 5 years old should not be given ccrn-xti-pctowku cough and cold medications such as guaifenesin and dextromethorphan. If you're over age 5, you may try sxxk-hmr-rvxujdq cold medications such as guaifenesin and dextromethorphan, or multi-symptom cold reliever such as Dayquil to help reduce the symptoms. Antibiotics have been pre scribed. You should take these until completed and follow the directions. Antibiotics can sometimescause upset stomach, and in rare cases, serious allergic reactions or serious gastrointestinal problems. If you start having severe abdominal pain, severe vomiting, or bloody diarrhea, you should be r eevaluated by your physician or urgent care immediately. Follow up with your Primary Care Provider or return to clinic if symptoms do not improve within 3-5 days. If you develop severe symptoms such as shortness of breath, repeated vomiting, coughing up blood, or chest pain you should go to the emergency room or call [phone] discomfort (ICD-10 - K11.9)some swelling not getting urvvmx1911/16/2024Shoulder pain, right (ICD-10 - M25.511) failed on PT calling back if want shoulder injection- radiology 5Acute bronchitis, unspecified organism (ICD-10 - J20.9)Rest and drink more liquids, especially water. You may use a humidifier or vaporizer to help keep the drainage moist. Lqxn-tyw-hullveo Nasal Saline may help the stuffy and runny nose. Use Ibuprofen and or Tylenol as needed for fever, chills, body aches or pain. Children 5 years old should not be given rksz-bqz-tygjnxg cough and cold medications such as guaifenesin and dextromethorphan. If you're over age 5, you may try xlhk-dun-wbivgdj cold medications such as guaifenesin and dextromethorphan, or multi-symptom cold reliever such as Dayquil to help reduce the symptoms. Antibiotics have been prescribed. You should take these until completed and follow the directions. Antibiotics can sometimescause upset stomach, and in rare cases, serious [...] to the emergency room or call 911 Plan Of Treatment Pending Test Test Name Order Date CMP (COMPLETE METABOLIC PANEL) HEMOGLOBIN A1C (GLYCO) 09/10/2024 LIPID PANEL (CHOL/TRIG/HDL/LDL) 09/10/20 24 CBC WITH DIFF 09/10/2024 Echocardiogram 10/05/2025 Dressing/Splint-performed 03/23/2025 CARDIO Stress Test - Cardiolite 06/24/20 25 CREATININE 07/31/2024 Cardiolyte Stress Test 07/28/2025 PSA, TOTAL 09/10/2024 MRI Arthrogram RT Shoulder 03/31/2023 MRI Arthrogram RT Shoulder 05/09/2023 STOOL OCCULT BLOOD 09/10/2024 XR Hip 2-3 Views Right 11/16/2024 BLEEDING TIME 05/15/2024 CBC AUTO DIFF 05/15/2024 Covid-19 PCR (CVDTBH) 05/18/2024 PROF 14(COMP METB) 05/15/2024 PROTIME 05/15/2024 PTT 05/15/2024 CT ABD and PELV W CON 07/29/2024 MRI BRAIN WO CON 06/24/2025 MRI SHOULDER RT WO CON 05/31/2023 US VALERIE DOP LEG LT 06/04/2024 US VALERIE DOP LEG RT 06/04/2024 US VENOUS DOPPLER L ARM 12/23/2024 THYROID PANEL (T4/TSH/FREE T3) Holter Monitor - 3 days up to 14 days XR SHOULDER RT 2V or > 03/28/2023 PSA, SCREENING 06/03/2025 Insurance Providers Payer Name Payer Address Payer Phone Subscriber Number Group Number Insured Name Patient Relationship to Insured Coverage Start Date Coverage End Date [place] [address] [place] [address] [id number] Germain Woodallelf - patient is the insuredK[facility] SUPPLEMENTPO [address] [address] [place], [place] [id number], EdwardSelf - patient is the insured Medications Administered Medication Instructions Date of Administration Dosage Notes Ceftriaxone 1 gram gCeftriaxone 1 gram gLidocaine HCl.1 mL Lidocaine HCl52.1 mL Medical (General) History Medical History History ICD Code History of generalized anxiety disorder History of arthritisChest wall painR07.89Chest painR07.8IwwxiwfankvffpU07.90 SgrkbzqvM20.2Chronic obstructive pulmonary disease with (acute) exacerbation J44.1Incisional woceezO73.2Aortic valve orgvpuvkE58.2AF (paroxysmal atrial fibrillation)I48.0Gastric nxawdB78.2JfaaxxdjB66Ilkpy iron deficiency ouipliC78.8 Internal mgckadmnblvW43.8Colon bluogyK08.5Warthin eikwtT09.1TedzznuokaptB14.2 Knee painM25.979WisedrzM36.00Disc disease, degenerative, fdwsmagvY72.30Eczema L30.0PovsiskokvwgF25Ppzugrta cystM67.40Seborrheic yfkxqrqpkD32.1Umbilical hernia K42.9Plantar cubwswjhvF15.7ViinfxjczyqaqhG08.90Surgical History Surgery Date(Month/Year) History of hernia repair Umbilical History of sinus surgeryRight Knee SurgeryLeft & Right rotator CuffHistory of cholecystectomyOpen Heart Surgery- Aortic Valve Replacement07/2018Hospitalization History Reason Date(Month/Year) See above
--- OUTSIDE RECORDS SUMMARY | 2025-10-08 07:51 | XMS_ITS | Clinical Summary ---
Author Organization [facility] Address [address] [place], [place] [address] Care Team Providers Care Floor Care Specialist Name Role Phone Aniceto Pearl MD Primary Care Provider [phone] Kenyatta Dumont Unavailable Juan F Mckinney MD Unavailable Aniceto Pearl MD Unavailable [phone] Aniceto Pearl MD Unavailable [phone] Allergies Active AllergyReactionsCriticalityNoted DateCommentsAmoxicillinDiarrheaLow 12/08/2024Hydrocodone-NstfsksafeksuHcrbexv28/14/3374JksjikzgylCnmly78/02/2017 NhzldaqxuBzfbqqr79/17/2023 Medications MedicationSigDispense QuantityRefillsLast FilledStart DateEnd DateStatus Cholecalciferol, Vitamin D3, 50 mcg (2,000 unit) cap Take 1,000 Units by mouth twice daily.Active ubidecarenone/vitamin E mixed (COQ10 SG 100 ORAL) Take 1 capsule by mouth once daily.Active psyllium husk, bulk, 100 % powd 1 teaspoonful twice daily. Active tolnaftate (FORMULA 3 TOPICAL) Apply 1 application to affected area once daily.Active cyanocobalamin, vitamin B-12, (VITAMIN B-12 SUBLINGUAL) Dissolve 1 Dose under the tongue once daily.Active OTC PRODUCT 0.9% NaCl Sinus RinseActive calcium citrate/vitamin D3 (CALCIUM CITRATE + ORAL) Take by mouth twice daily. Pt takes 2 capsule by mouth twice per day.Active olopatadine (PATADAY TWICE DAILY RELIEF) 0.1 % ophthalmic solution Use 1 Drop in both eyes twice daily.1Active azithromycin (ZITHROMAX) 500 mg tablet Take 1 tablet by mouth once daily. Take one tablet 60 minutes prior to procedure. 1 tablet 03/23/2022ctive tg-uq-U-theanine-herb no.310 (AIRBORNE EVERYDAY STRESS AWAY) 1,000 mg-200 mg-360 mg pwpk Take by mouth.09/09/2018Active acetaminophen (TYLENOL) 325 mg tablet Take 650 mg by mouth as needed for pain.09/09/2018Active sodium chloride (SALINE MIST NASAL) Use in the nose.08/28/2018Active OTC PRODUCT once daily. OTC Force Factor take 3 tablet once per dayActive aspirin, enteric coated (ASPIRIN, ENTERIC COATED) 81 mg EC tablet Take 81 mg by mouth once daily.Active iron bisgly,ps-FA-B-C#12-succ 65 mg-65 mg -1,000 mcg (24) tab Take 65 mg by mouth once koswbw423Active furosemide (LASIX) 20 mg tablet Take 20 mg by mouth once daily.Active simvastatin (ZOCOR) 20 mg tablet daily at bedtime.4Active MULTIVITAMIN ORAL Take by mouth.Active irbesartan (AVAPRO) 300 mg tablet Indications:Essential hypertensionTake 1 tablet by mouth daily at bedtime. 90 tablet 5Active metoprolol succinate ER (TOPROL XL) 50 mg 24 hr tablet Take 50 mg by mouth once daily.Active docosahexaenoic acid/epa (FISH OIL ORAL) Take 1,400 mg by mouth twice daily.3Discontinued Active Problems Patient Care Coordination No te [...] the past, but notes this has significantly improvedsince losing ~ 20 lbs and being on [...] kept for drainage. Removed 08.18.2018 without incident. CXRstable, small right apical pneumo. - s/p Bio [...] Urine culture was (- ). (sent because pt.felt chilled/sweats with A-fib episode). -Double vision: started after DCCV (immediately). Maybe 2/2 anesthesia- now resolved (no further episodes) - Dispo: Discharge today 08.20.2018. Lives in [place], [place] with (she has early dementia). CM following. No skilled needs anticipated. OPD/cards/CTS f/u with CT scan all requested. Discharge Planning: Anticipated Discharge Date: 08.20.2018. Barriers to Discharge: No Barriers to Discharge Care Management Discharge Needs: Needs Prior to Discharge: To Be Determined ProblemNoted DateDiagnosed DateDry eye syndrome of bilateral lacrimal glands 12/22/2024Dry eye12/22/2024Meibomian gland dysfunction (MGD) of upper and lower lids of both eyes12/22/2024Dermatochalasis of both upper khflcqj0812/22/2024 Potwosezfzld63/28/2025S/P right rotator cuff crhivt8807/08/2023Traumatic complete tear of right rotator cuff07/08/2023Transition of care performed with sharing of clinical nbgttbp9708/15/2018 Overview (08/20/2018): Indication for Surgery: Aortic regurgitation, [...] the past, but notes this has significantly improvedsince losing ~ 20 lbs and being on [...] kept for drainage. Removed 08.18.2018 without incident. CXRstable, small right apical pneumo. - s/p Bio [...] Urine culture was (- ). (sent because pt.felt chilled/sweats with A-fib episode). -Double vision: started after DCCV (immediately). Maybe 2/2 anesthesia- now resolved (no further episodes) - Dispo: Discharge today 08.20.2018. Lives in [place], [place] with (she has early dementia). CM following. No skilled needs anticipated. OPD/cards/CTS f/u with CT scan all requested. Discharge Planning: Anticipated Discharge Date: 08.20.2018. Barriers to Discharge: No Barriers to Discharge Care Management Discharge Needs: Needs Prior to Discharge: To Be Determined Paroxysmal atrial xngmlerszxir09/21/2018 Overview (08/19/2018): History: Post-op problem. Developed 08/15 4287-3485. Self-terminated without conversion pause after IV Mg. And then again at 11:00 pm on 08.17.2018. Assessment: Currently SR (s/p DCCV) on 08.19.2018. On po BB, amio. Plan: Continue low dose BB, po amio. Start warfarin today 08.19.2018. Monitor for recurrence. Discharge planning cfuedf6708/11/2018 Overview (08/20/2018): Discharge today 08.20.2018 as rhythm has remained stable. Lives in [place], [place] with . CM following. No skilled needs anticipated. with early stage dementia. OPD/cards/CTS f/u with CT scan all requested. Discharge Planning: Anticipated Discharge Date: 08.20.2018 Barriers to Discharge: No Barriers to Discharge Care Management Discharge Needs: Needs Prior to Discharge: Ready for Discharge Nonrheumatic aortic valve wlitptkfqvbmh31/02/2018Thoracic aortic aneurysm without nvdmkbb3505/26/2018 Overview (08/19/2018): History: pre-op CT scan showing mildly ectatic root (4.6 x 4.3 cm) and mid ascending aorta (4.4 cm). Assessment: 08/12/18: BioBentall (#27 CE valve), #28 Gelweave aortic root/ascending aorta replacement. Surg path: Moderate increase in mucopolysaccharides Plan: ASA, start BB Complaint of memory disorder without observed objective memory vjfmvos1901/09/2017 Age-related memory /15/7028Liavsodlptrc50/05/2016Primary hypertension 10/29/2016Aortic insufficiency Overview (08/19/2018): History: Pre-op echo showing severe (4+) aortic valve regurgitation due to annular dilatation. Assessment: 08/12/2018: Bio Bentall (Aortic valve replacement with [...] (08/11/2018): history of bleeding ulcer Resolved Problems ProblemNoted DateDiagnosed DateResolved DateVolume xfyglkgs38 Overview (08/19/2018): History: Post-op problem. Weight up as much as 7.2 kg Assessment: (+) 3.2 kg. On IV lasix. Plan: Replace electrolytes prn. Montior labs, I/O. Monitor daily weight. Continue fluid restriction. Mobilize. Zjcyutnqxdv15 Overview (08/15/2018): History: Post-op problem. Assessment: CXR 08/15 with sm effusions/bibasilar atelectasis. Plan: Mobilize now that on tele. Encourage PEP, cough and deep breathing. Pain control. Large RT penumothorax. Overview (08/19/2018): History: Post-op problem. Developed near complete right pneumothorax 08/13 Assessment: CXR with resolved pneumo. On RA. Right pigtail removed 08.18.2018 without incident. Plan: Post-pull repeat CXR ipending. Continue PHOTOGRAPHER MODEL for pain related to catheter. Acute post-operative pain Overview (08/15/2018): History: post OHS Assessment: pain is well controlled with current regimen. Pt. requests PHOTOGRAPHER MODEL continue. Does have itching when takes Oxycodone, but states all pain meds causes this for him (no rash noted) Plan: Continue current regimen with lidoderm patches, Tylenol, Oxycodone/Tramadol, and PHOTOGRAPHER MODEL. Add Benadryl. Bowel regimen in place. Cardiac pahpuscajljot86 Overview (08/13/2018): Normal biventricular function pre/post. On epinephrine from OR. Weaned to off. Mentating well. UO marginal (fluids administered) CVP wnl. ScvO2 71 LA wnl Postoperative xmelrsiosxi77 Overview (08/12/2018): A/P: MAP 74 mmHg with goal 65-75 mmHg. On levophed. Wean able Stress wfgssskunfaqm62 Overview (08/14/2018): SSI On mechanically assisted ikfwtuqmxng82 Overview (08/12/2018): A/P Intubated and sedate from OR. WTE. Secondary pmkdqjwtciwdmtce89 Overview (08/15/2018): History: post-op problem. Plt count trended as low as 68k 08/14. Assessment: Improving to 77k. Plan: Continue ASA, SQ Heparin as tolerating with no further decline in plt count. Preop snejrsf12 Overview (08/11/2018): [facility] [...] Cardiac Surgical prep: N/A SIGNATURE: Belia Gardner APRN.[employer] CHECKED BY: DATE of SERVICE: 08/11/2018 TIME of SERVICE: 5:09 PM Ascending aortic idkkbbuj36/21/2018Dilated aortic root08/15/2018 Immunizations ImmunizationAdministration DatesNext Dueinfluenza (HD-IIV3) vaccine, age 65+ yr, high dose, trivalent, PF (FLUZONE HIGH-DOSE)07/22/2018influenza (IIV3) vaccine, trivalent, PF (AFLURIA, FLUARIX, FLULAVAL, FLUVIRIN, FLUZONE)12/05/2015influenza (IIV4) vaccine, quadrivalent (AFLURIA, FLULAVAL, FLUZONE)10/05/2014influenza (aIIV3) vaccine, age 65+ yr, trivalent, PF (FLUAD)10/11/2017pneumococcal conjugate (PCV13) vaccine, 13 valent (PREVNAR 13)06/10/2017tetanus toxoid (TT) zqmlxjn3708/28/2005 Family History Medical HistoryRelationCommentsCancerFatherProstateStrokeFatherAlzheimer's DiseaseMotherHypertensionMotherAlzheimer's DiseaseSister 1OtherSister 2Lou Gherig's DiseaseRelationStatusCommentsFatherDeceased (Age 82)MotherDeceased (Age 89)Sister 1AliveSister 2Deceased (Age late 60's) Social History Tobacco UseTypesPacks/DayYears UsedDateSmoking Tobacco: FormerCigarettes1.525 08/11/1965 - 08/11/1990mokeless Tobacco: Never Comments:Quit over 30 yrs ag o Alcohol UseStandard Drinks/WeekCommentsYes1 (1 standard drink = 0.6 oz pure alcohol)socialPHQ-2AnswerDate RecordedPHQ-2 qxlrl017rea Deprivation IndexAnswerDate RecordedNational Score (1-100), lower number is lower risk39 07/08/2023State Score (1-10), lower number is lower mqzd055ata from: https://www.neighborhoodatlas.medicine.[facility].edu/. Last address used for thclybpvvyp[address]07/08/2023Sex and Gender InformationValueDate Recorded Sex Assigned at QlypgUrme56/13/2019 6:25 PM EDTLegal QyzRjoi32/02/2012 9:23 AM ESTGender QbkdugndJufj52/13/2019 6:25 PM EDTSexual TglemvqodyzKrtherwp12/13/2019 6:25 PM EDTOccupationIndustryJob Start DateJob End DateretiredNot on fileNot on fileNot on file Last Filed Vital Signs Vital SignReadingTime TakenCommentsBlood Docgyvpc346/78005/10/2025 1:45 PM EDT Lurgi358105/10/2025 1:45 PM GNXYabeyxzlvnb84.1 ??C (98.8 ??F)11/07/2018 2:53 PM ESTRespiratory Gnkv308308/20/2018 11:17 AM EDTOxygen Ncfjfngpdw70%12/01/2024 10:25 AM ESTInhaled Oxygen Concentration--Kiwjan83 kg (183 lb)05/10/2025 1:45 PM EDT Mebaqz372.8 cm (5' 10 )05/10/2025 1:45 PM EDTBody Mass Index26.26005/10/2025 1:45 PM EDT Plan of Treatment DateTypeDepartmentCare Team (Latest Contact Info)Kaowhpdncco08/19/2025 10:45 AM ESTProcedure Cardiology [address] [place] [address] Chest pain, unspecified type [R07.9]10/13/2025 11:15 AM ESTOffice Visit [facility] [address] [place] [address] Santiago Gonzalez MD [address] [place] [address] New ConsultHealth MaintenanceDue DateLast DoneCommentsAnnual PCP Team Chronic Disease Visit1964Anxiety Tkyphgmyd76/25/1964Depression Vbqaylpto47/25/1964 Medicare Annual Wellness Visit08/25/2013dvance Directive Ugnkivvhnh26/01/2025 Covid-19 Vaccine ( season), 09/03/2023, 04/11/2023, Additional history existsInfluenza Vaccine (#1), 08/15/2023, 09/11/2022, Additional history existsDiabetes Noomiluxx62/30/2028 03/24/2025, 12/28/2024, 12/28/2024, Additional history existsDTaP,Tdap,Td Vaccine (4 - Td or Tdap)5003/08/2025, 02/12/2024, 08/12/2020, Additional history existsShingrix GansmjbMaqhybjoh51/28/2020, 07/22/2020, 07/22/2020 Pneumococcal Vaccine: 50+Zespckptg84/31/2020, 06/10/2017RSV VaccineCompleted 08/08/2023 Goals GoalPatient Goal TypeAssociated ProblemsRecent ProgressPatient-Stated?Author Blood Pressure < 130/80 Blood Ywwcncyn403/78(05/10/2025 1:45 PM EDT)Ariella Dorado APRN.[employer] Medical Devices ImplantedTypeAreaManufacturerDevice IdentifierSgrant hospitalf Expiration DateModel / Serial / LotGraft Gelweave Valsalva 30mm 15cm Cardiovascular Woven Aortic Root - [id number] Implanted:Qty: 1 on 08/12/2018 by [facility]GraftN/A: Artery - AortaTERUMO [id number] / [id number] / [id number] Thk1.65mm Ptfe 4x.5in Cardiovascular Sterile - [id number] Implanted:Qty: 1 on 08/12/2018 [facility]ImplantN/A: HeartBARD PERIPHERAL [id number]/[id number] / / [id number] Aort 27mm Crp-Ed Thfx - [id number] Implanted:Qty: 1 on 08/12/2018 by [facility] Briggs [facility]ValveN/A: HeartEDWARDS LIFESCIENCES [id number] / [id number] / Procedures Procedure NamePriorityDate/TimeAssociated DiagnosisCommentsBASIC METABOLIC PANEL Vhxwvni0203/24/2025 12:34 PM EDT Essential hypertension Hyperlipidemia, unspecified hyperlipidemia type from Last 3 Months or Most Recently Relevant to Health Maintenance Results * (ABNORMAL) BASIC METABOLIC PANEL (03/24/2025 12:34 PM EDT)ComponentValueRef RangeTest MethodAnalysis TimePerformed AtPathologist ZuugxwfwdPlqyxks7266 - 99 mg/dL03/24/2025 8:23 PM EDTCSHELTERING ARMS HOSPITAL LABComment: The [place] Diabetes Association (ADA) provides guidance for cutoff [...] Standards of Medical Care in Diabetes 2016, [place] Diabetes Association. Diabetes Care. 2016.39(Suppl 1). CFE643 - 24 mg/dL03/24/2025 8:23 PM [facility] Creatinine1.26(H)0.73 - 1.22 mg/dL03/24/2025 8:23 PM [facility] DZPXmotod122721 - 144 mmol/L03/24/2025 8:23 PM [facility] LABPotassium4.53.7 - 5.1 mmol/L03/24/2025 8:23 PM [facility] IQXNemphfcp74269 - 107 mmol/L03/24/2025 8:23 PM [facility] KWKKZ74487 - 30 mmol/L03/24/2025 8:23 PM [facility] LABAnion Gyl178 - 15 mmol/L03/24/2025 8:23 PM [facility] LABCalcium, Total9.98.5 - 10.2 mg/dL03/24/2025 8:23 PM [facility] LABEstimated Glomerular Filtration Rate58(L)>=60 mL/min/1.73m 03/24/2025 8:23 PM [facility] LABComment:Estimated Glomerular Filtration Rate (eGFR) is calculated using the 2020 CKD-EPI creatinine equation. This equation utilizes serum creatinine, sex, and age as parameters. The creatinine assay has traceable calibration to isotope dilution- mass spectrometry. Refer to KDIGO guidelines for clinical interpretation. In patients with unstable renal function, e.g. those with acute kidney injury, the eGFRmay not accurately reflect actual GFR.Specimen (Source)Anatomical Location / LateralityCollection Method / VolumeCollection TimeReceived TimeBloodBLOOD SPECIMEN / UnknownVenipuncture / Fctuzon9103/24/2025 12:34 PM EDT03/24/2025 12:34 PM EDT Narrative Authorizing ProviderResult TypeResult StatusAriella Norwood APRN.CNPLABORATORYFinal ResultPerforming OrganizationAddressCity/State/ZIP CodePhone Number [facility] [address] [place] [address], [place] from Last 3 Months or Most Recently Relevant to Health Maintenance Insurance * Guarantor: Wally Woodall AAccount TypeRelation to PatientDate of BirthPhone Billing AddressPersonal/OknbigJndh1945 [address] [place] [address] * Guarantor: Wally Woodall AAccount TypeRelation to PatientDate of BirthPhone Billing AddressWorkers SiijDydc1945 [address] [place] [address] Advance Directives TypeDate RecordedPatient RepresentativeExplanationAdvance Directive(s)08/11/2018 5:51 PM Care Teams Team MemberRelationshipSpecialtyStart DateEnd Date Aniceto Pearl MD [address] [place] [address] PCP - General03/07/01 Kenyatta Dumont [address] [place] [address] ReferringCardiology05/29/18 Juan F Mckinney MD [address] [facility] [place] [address] Primary Staff PhysicianCardiology05/10/20 Aniceto Pearl MD [address] [facility] [place] [address] ReferringFamily Medicine01/08/23 Aniceto Pearl MD [address] [facility] [place] [address] ReferringFamily Medicine06/19/23
== END 2025-10-08 07:47 | disposition home or self-care (01) ==
LOC: CARD 07:47
PROVIDERS: PCP Family Medicine; Visit Provider Family Medicine
DX: R00.2 Palpitations (principal)

== ENCOUNTER 2025-10-08 08:00 | Outpatient (OUT) | payer MEDICARE, OTHER, SELFPAY ==
--- NOTE | 2025-10-08 08:00 | CA_ITS ---
Patient Name: DEBORAH BARROW MR#: [id number] : 1945 Exam Date: 10/08/2025 Ordering Doctor: DR ONEL ISAACS . ECHOCARDIOGRAM REPORT PROCEDURE: CA ECHO DOPPLER COMPLETE INDICATIONS: Edema, bioprosthetic aortic valve COMPARISON: None. DESCRIPTION: COMPLETE ECHOCARDIOGRAM Real-time transthoracic echocardiography with 2D, M-mode, spectral and color flow Doppler performed. QUALITY: Technical quality was good. LEFT VENTRICLE: Normal chamber size. Mild concentric left ventricular hypertrophy. Normal left ventricle systolic function without wall motion abnormalities. Calculated left ventricular ejection fraction is 68%. LV EF: Normal left ventricular ejection fraction, (>55%). DIASTOLIC: Grade II diastolic dysfunction. ATRIAL SEPTUM: Visually appears intact LEFT ATRIUM: Mild dilatation. RIGHT ATRIUM: Mild dilatation. RIGHT VENTRICLE: Normal chamber size. Mildly decreased right ventricular systolic function. TRICUSPID VALVE: Normal mobility and thickness. No stenosis with mild regurgitation. Doppler studies reveal mildly (35-45) elevated right sided pressures.RVSP 42 mmHg MITRAL VALVE: Normal mobility and thickness. No evidence of mitral valve stenosis. There is no mitral annular calcification. Mild mitral regurgitation. AORTIC VALVE: Bio-Prosthetic valve appears well seated in the aortic position with normal doppler flow. No aortic regurgitation. AORTIC ROOT: Normal diameter and appearance. Ascending aorta is normal in size (3.6 cm) PULMONIC VALVE: Normal thickness and mobility. No stenosis. No regurgitation. PERICARDIUM: No evidence of pericardial effusion. IVC: Collapes with inspirations. IVC is dilated (2.6 cm) PLEURA: CONCLUSION: Mild concentric left ventricular hypertrophy Normal left ventricle cavity size Normal left ventricle systolic function without wall motion abnormalities, ejection fraction 68% Grade 2 left ventricle diastolic dysfunction Normal right ventricle size but mildly decreased systolic function Mild pulmonary hypertension, RVSP 42 mmHg Bioprosthetic aortic valve with normal Doppler flow and no regurgitation Mild mitral regurgitation Mild tricuspid regurgitation Adult Echocardiography Procedure Report Left Ventricle LVEDD (3.7 - 5.6 cm): 4.24 cm LVESD (2.2 - 4.0 cm): 2.54 cm LVIVS thickness (0.6 - 1.2 cm): 1.40 cm LVPW thickness (0.5 - 1.0 cm): 1.24 cm e': 0.08 m/s E - e': 6.85 LVOT Max Gradient: 2.30 mm[Hg] LVOT Area (cm2): 0.76 m/s Peak Velocity (LVOT): 0.76 m/s Mean Velocity (LVOT): 0.56 m/s LVOT Diameter 2.15 cm Left Ventricular Ejection Fraction: 67.51 % Left Atrium LA Volume Index (2D A2C): 37.72 ml/m2 Left Atrium Systolic Dimension: 4.48 cm Mitral Valve MV E to A Ratio: 0.71 MV Max Gradient: MV Mean Gradient: Mitral Valve A-Wave Peak Velocity: 0.76 m/s Mitral Valve E-Wave Peak Velocity: 0.54 m/s Cardiovascular Orifice Area: Right Ventricle RV Internal Diastolic Dimension: Aorta AO Root Diam: 3.27 cm Ascending Ao Diam: 3.60 cm Aortic Valve AoV Area (Peak Samuel): 2.07 cm2, 2.07 cm2 AoV Area (VTI): 2.31 cm2, 2.31 cm2 Deceleration Reynolds: Pressure Half-Time: Peak Velocity(Antegrade Flow): 1.32 m/s Peak Gradient(Antegrade Flow): 7.01 mm[Hg] Mean Velocity(Antegrade Flow): 0.88 m/s Mean Gradient(Antegrade Flow): 3.56 mm[Hg] Velocity Time Integral: 28.69 cm Tricuspid Valve Peak Velocity (Regurgitant Flow): 2.90 m/s, 2.61 m/s Peak Velocity: Pulmonic Valve Mean Gradient: 1.23 mm[Hg] Mean Velocity: 0.52 m/s Peak Velocity: 0.85 m/s Peak Gradient: 2.86 mm[Hg] Right Atrium Right Atrium Systolic Pressure: 52.07 ml, 52.07 ml Dictated by: Radha Denny MD on 10/10/2025 at 16:10 Approved by: Radha Denny MD on 10/10/2025 at 16:29
== END 2025-10-08 08:01 | disposition home or self-care (01) ==
LOC: CARD 08:00
PROVIDERS: PCP Family Medicine; Visit Provider Family Medicine
DX: R60.9 Edema, unspecified (principal)
CPT/HCPCS: 93246; 93306